=== PATIENT | female | born 1940 | race Caucasian/White ===

== ENCOUNTER 2016-11-09 09:49 | Inpatient (IN) | payer MEDICARE, MEDICAID ==
[~2016-11-09] VITALS: Ht 157.5 cm; Wt 74.6 kg
[~2016-11-09 09:49] MED LIST: BENZ1TAB PO; E 101000 PO; FOSA70TA PO; GEMF600 PO; LISI-585 PO; LORA-392 PO; MELO15 PO; OSCA200T PO; OXYB5TAB33 PO; RISP3TAB23 PO; SERT100 PO
[2016-11-09 09:56] VITALS: BP 147/67; PULSE 98; RESP 26; TEMP 100.9; O2SAT 93
[2016-11-09] MEDS ORDERED: CEFEPIME INJ 2,000 MG in SODIUM CHLORIDE 0.9% INJ 100 ML IV STA (10:19)
[2016-11-09] MEDS ORDERED: SODIUM CHLOR 0.9% 1000 ML INJ 1,000 ML IV ONE ×2 (10:19)
[2016-11-09] MEDS ORDERED: SODIUM CHLOR 0.9% 1000 ML INJ 400 ML IV ONE (10:19)
[2016-11-09] MEDS ORDERED: ACETAMINOPHEN 325 MG TAB PO ONE (10:30)
[2016-11-09 10:40] LABS: AUTOMATED NEUTROPHIL # 16.7 TH/MM3 (1.8-7.7); BASOPHIL # 0.1 TH/MM3 (0-0.2); BASOPHIL % 0.4 % (0.0-2.0); EOSINOPHIL # 0.1 TH/MM3 (0-0.4); EOSINOPHIL % 0.3 % (0.0-4.0); HEMATOCRIT 36.5 % (35.0-46.0); HEMO FLAGS DIFF FINAL; LYMPH % 5.8 % (9.0-44.0); LYMPHOCYTE # 1.1 TH/MM3 (1.0-4.8); MEAN CELL VOLUME 86.1 FL (80.0-100.0); MEAN CORPUSCULAR HEMOGLOBIN 27.9 PG (27.0-34.0); MEAN CORPUSCULAR HGB CONC 32.4 % (32.0-36.0); MONO % 7.1 % (0.0-8.0); NEUT % 86.4 % (16.0-70.0); PLATELET COUNT 306 TH/MM3 (150-450); RED BLOOD COUNT 4.24 MIL/MM3 (4.00-5.30); RED CELL DISTRIBUTION WIDTH 12.4 % (11.6-17.2); WHITE BLOOD COUNT 19.3 TH/MM3 (4.0-11.0)
[2016-11-09 10:52] LABS: BLOOD, URINE NEG (NEG); COMMENT (UR) CATH-CULT NOT IND; CULTURE IF INDICATED CATH CULTURE NOT IND; GLUCOSE,URINE NEG (NEG); HYALINE CAST, URINE 1 /lpf (RARE); KETONE, URINE NEG (NEG); NITRITE,URINE NEG (NEG); PH, URINE 5.5 (5.0-8.5); URINE COLOR YELLOW (YELLW/STRAW)
[2016-11-09 11:15] LABS: BICARBONATE 18.8 MEQ/L (21.0-32.0); CALCIUM-PROTEIN CORRECTED 7.5 MG/DL (8.5-10.1); POTASSIUM 3.5 MEQ/L (3.5-5.1); TOTAL BILIRUBIN ADULT 0.3 MG/DL (0.2-1.0)
[2016-11-09] MEDS ORDERED: LISI10TA PO (11:57)
[2016-11-09] MEDS ORDERED: RISP0.5T2 PO (11:57)
[2016-11-09] MEDS ORDERED: POLY17S PO (11:57)
[2016-11-09] MEDS ORDERED: TRAM50TA PO (11:57)
[2016-11-09] MEDS ORDERED: ZOLO100T PO (11:57)
[2016-11-09] MEDS ORDERED: RISP2TAB2 PO (11:57)
[2016-11-09] MEDS ORDERED: GEMF600T PO (11:57)
--- NOTE | 2016-11-09 11:59 | EKG ---
Date Performed: 11/09/2016 Time Performed: 10:06:39 PTAGE: 75 years EKG: Sinus rhythm BORDERLINE LEFT AXIS DEVIATION LOW QRS VOLTAGE IN PRECORDIAL LEADS INCOMPLETE RIGHT BUNDLE BRANCH BL OCK VOLTAGE CRITERIA FOR LVH, CONSIDER NORMAL VARIANT T-WAVE ABNORMALITY, CONSIDER LATERAL ISCHEMIA A BNORMAL ECG NO PREVIOUS TRACING DOCTOR: Edmond Rodgers Interpretating Date/Time 11/09/2016 11:59:23
--- NOTE | 2016-11-09 12:06 | RADRPT ---
EXAM DATE/TIME: 11/09/2016 10:21 [place] COMPARISON: No previous studies available for comparison. INDICATIONS : Fever. MEDICAL HISTORY : Unobtainable. SURGICAL HISTORY : Unobtainable. ENCOUNTER: Initial ACUITY: 1 day PAIN SCORE: Non-responsive. LOCATION: Bilateral chest FINDINGS: There is elevation of the right diaphragm of undetermined chronicity. Minimal streaky right perihilar and basilar parenchymal opacity is noted. Left lung is focally clear. No significant effusion is porsche pected. Cardiac contours are satisfactory for technique and projection. CONCLUSION: Elevated right diaphragm and mild streaky parenchymal opacity on the right of undetermined chronicity . Jose Love MD on November 09, 2016 at 12:00 Board Certified Radiologist. This report was verified electronically.
--- NOTE | 2016-11-09 12:07 | PD ---
HPI Chief Complaint: Altered Mental Status Time Seen by Provider: 10:15 Travel History International Travel<30 days: No Contact w/Intl Traveler<30days: No Traveled to known affect area: No History of Present Illness HPI The patient is 75 years old and arrives by EMS from [facility] due to a change in mentation. She was found to be febrile by EMS and brought here. Here the history is limited due to the clinical condition and the patient's inability to answer questions. Evidently the patient is verbal normally. Per staff rn at [facility], pt normally uses wheelchair and is verbal, aox2 and occasionally aox3, feeds self. PFSH Past Medical History Blood Disorders: No Depression: Yes Cancer: Yes Cardiovascular Problems: No Genitourinary: No Musculoskeletal: Yes (SYNCOPAL) Neurologic: No Psychiatric: Yes Reproductive: No Respiratory: No Schizophrenia: Yes ?: Not Past Surgical History Cardiac Surgery: No Ear Surgery: No Endocrine Surgery: No Eye Surgery: No Genitourinary Surgery: Yes Gynecologic Surgery: Yes Hysterectomy: Yes Mastectomy: Yes (bilateral) Oral Surgery: No Thoracic Surgery: No Other Surgery: Yes Social History Alcohol Use: No Tobacco Use: No Substance Use: Yes Allergies-Medications (Allergen,Severity, Reaction): Coded Allergies: aspirin (Unverified Allergy, Severe, 10/16/16) PT HAS TINNITUS penicillin G (Unverified Allergy, Severe, 10/16/16) Reported Meds & Prescriptions Reported Meds & Active Scripts Active Reported Tramadol (Tramadol HCl) 50 Mg Tab 50 Mg PO TID Gemfibrozil 600 Mg Tab 600 Mg PO BIDAC Take 30 minutes prior to breakfast and dinner. Zoloft (Sertraline HCl) 100 Mg Tab 100 Mg PO DAILY Risperidone 2 Mg Tab 2 Mg PO HS Risperidone 0.5 Mg Tab 0.5 Mg PO HS Polyethylene Glycol 3350 Powder (Polyethylene Glycol) 17 Gram Pow 17 Gm PO DAILY Lisinopril-Hctz 10-12.5 Mg Tab 1 Tab PO DAILY Review of Systems Except as stated in HPI: all other systems reviewed are Neg Physical Exam Narrative GENERAL: 75-year-old female well-nourished well-developed mild distress SKIN: Warm and dry. HEAD: Atraumatic. Normocephalic. EYES: Pupils equal and round. No scleral icterus. No injection or drainage. ENT: No nasal bleeding or discharge. Mucous membranes pink and moist. NECK: Trachea midline. No JVD. CARDIOVASCULAR: Heart rate approximately 90. Regular. RESPIRATORY: Normal respiratory rate. Breath sounds present bilaterally. GASTROINTESTINAL: Soft. There is no focus of tenderness. MUSCULOSKELETAL: Extremities without clubbing, cyanosis, or edema. No obvious deformities. NEUROLOGICAL: The patient opens her eyes and looks at the interviewer. She does not answer questions. She does not following commands. PSYCHIATRIC: Unable to assess. Data Data Last Documented VS Vital Signs Date Time Temp Pulse Resp B/P (MAP) Pulse Ox O2 Delivery O2 Flow Rate FiO2 11/09/16 09:56 93 Nasal Cannula 2.00 11/09/16 09:56 100.9 98 26 147/67 (93) Vital signs reviewed Orders Orders Complete Blood Count With Diff (11/09/16 10:19) Comprehensive Metabolic Panel (11/09/16 10:19) Lactic Acid Sepsis Protocol (11/09/16 10:19) Urinalysis - C+S If Indicated (11/09/16 10:19) Blood Culture (11/09/16 10:19) Chest, Single Ap (11/09/16 10:19) Blood Glucose (11/09/16 10:19) Ecg Monitoring (11/09/16 10:19) Iv Access Insert/Monitor (11/09/16 10:19) Oximetry (11/09/16 10:19) Oxygen Administration (11/09/16 10:19) Acetaminophen (Tylenol) (11/09/16 10:30) Cefepime Inj (Maxipime Inj) (11/09/16 10:19) Sodium Chlor 0.9% 1000 Ml Inj (Ns 1000 M (11/09/16 10:19) Sodium Chlor 0.9% 1000 Ml Inj (Ns 1000 M (11/09/16 10:19) Sodium Chlor 0.9% 1000 Ml Inj (Ns 1000 M (11/09/16 10:19) Electrocardiogram (11/09/16 10:06) Acetaminophen Supp (Tylenol Supp) (11/09/16 12:15) Lactic Acid (11/09/16 12:19) Admit Order (Ed Use Only) (11/09/16 12:40) Vancomycin Inj (Vancomycin Inj) (11/09/16 12:45) Labs Laboratory Tests Test 11/09/16 10:24 11/09/16 12:16 White Blood Count 19.3 TH/MM3 Red Blood Count 4.24 MIL/MM3 Hemoglobin 11.8 GM/DL Hematocrit 36.5 % Mean Corpuscular Volume 86.1 FL Mean Corpuscular Hemoglobin 27.9 PG Mean Corpuscular Hemoglobin Concent 32.4 % Red Cell Distribution Width 12.4 % Platelet Count 306 TH/MM3 Mean Platelet Volume 10.7 FL Neutrophils (%) (Auto) 86.4 % Lymphocytes (%) (Auto) 5.8 % Monocytes (%) (Auto) 7.1 % Eosinophils (%) (Auto) 0.3 % Basophils (%) (Auto) 0.4 % Neutrophils # (Auto) 16.7 TH/MM3 Lymphocytes # (Auto) 1.1 TH/MM3 Monocytes # (Auto) 1.4 TH/MM3 Eosinophils # (Auto) 0.1 TH/MM3 Basophils # (Auto) 0.1 TH/MM3 CBC Comment DIFF FINAL Differential Comment Urine Color YELLOW Urine Turbidity CLEAR Urine pH 5.5 Urine Specific [place] 1.014 Urine Protein TRACE mg/dL Urine Glucose (UA) NEG mg/dL Urine Ketones NEG mg/dL Urine Occult Blood NEG Urine Nitrite NEG Urine Bilirubin NEG Urine Urobilinogen LESS THAN 2.0 MG/DL Urine Leukocyte Esterase NEG Urine RBC 1 /hpf Urine Hyaline Casts 1 /lpf Microscopic Urinalysis Comment CATH-CULT NOT IND Blood Urea Nitrogen 27 MG/DL Creatinine 1.35 MG/DL Random Glucose 113 MG/DL Total Protein 6.8 GM/DL Albumin 3.0 GM/DL Calcium Level 7.3 MG/DL Alkaline Phosphatase 50 U/L Aspartate Amino Transf (AST/SGOT) 16 U/L Alanine Aminotransferase (ALT/SGPT) 11 U/L Total Bilirubin 0.3 MG/DL Sodium Level 142 MEQ/L Potassium Level 3.5 MEQ/L Chloride Level 114 MEQ/L Carbon Dioxide Level 18.8 MEQ/L Anion Gap 9 MEQ/L Estimat Glomerular Filtration Rate 38 ML/MIN Lactic Acid Level 2.3 mmol/L 2.9 mmol/L Protein Corrected Calcium 7.5 MG/DL [facility] Medical Decision Making Medical Screen Exam Complete: Yes Emergency Medical Condition: Yes Medical Record Reviewed: Yes Differential Diagnosis Pneumonia, UTI, sepsis, severe sepsis, colitis, multiorgan dysfunction syndrome , polypharmacy, delirium Narrative Course CBC & BMP Diagram 11/09/16 10:24 Total Protein 6.8, Albumin 3.0 L, Calcium Level 7.3 *L, Alkaline Phosphatase 50 , Aspartate Amino Transf (AST/SGOT) 16, Alanine Aminotransferase (ALT/SGPT) 11, Total Bilirubin 0.3 LA 2.3 UA normal EKG reveals sinus rhythm with a rate of 99 ST changes are noted The patient has a pneumonia with leukocytosis and fever. These findings are consistent with sepsis. Blood cultures obtained. Cefepime/Vanco. d/w Dr Agarwal. Critical Care Narrative Aggregate critical care time was 40 minutes. Time to perform other separately billable procedures was not included in the critical care time. My time did not include minutes spent treating any other patients simultaneously or on activities that did not directly contribute to the patient's treatment. The services I provided to this patient were to treat and/or prevent clinically significant deterioration that could result in: septic shock, multiple organ dysfunction, , permanent disability I provided critical care services requiring my management, as noted below: Chart data review, documentation time, medication orders and management, vital sign assessments/reviewing monitor data, ordering and reviewing lab tests, ordering and interpreting/reviewing x-rays and diagnostic studies, care of the patient and discussion of the patient with the admitting physicians. Sepsis Criteria SIRS Criteria (2 or more): Temp > 100.9 or < 96.8, Heart rate over 90, WBC > 41203, < 4000 or > 10% bands Sepsis Criteria (SIRS+source): Infect source susp/known Severe Sepsis (+one): Lactate >2 Diagnosis Primary Impression: Severe sepsis Additional Impression: Pneumonia Qualified Codes: J18.1 - Lobar pneumonia, unspecified organism Admitting Information Admitting Physician Requests: Admit Олег Hawkins MD Nov 09, 2016 12:06
[2016-11-09] MEDS ORDERED: ACETAMINOPHEN 650 MG SUPP RECTAL ONE (12:15)
[2016-11-09 12:34] LABS: LACTIC ACID GHOST NOT REPORTABLE
[2016-11-09] MEDS ORDERED: VANCOMYCIN INJ 1,000 MG in SODIUM CHLOR 0.9% 250 ML INJ 250 ML IV ONE (12:45)
[2016-11-09] MEDS ORDERED: ONDANSETRON HCL 4 MG/2 ML VIAL IVP PRN (13:15)
[2016-11-09] MEDS ORDERED: ACETAMINOPHEN 325 MG TAB PO PRN (13:15)
[2016-11-09] MEDS ORDERED: Vancomycin Consult Pharmacy 1 EA OTHER SCH (13:15)
[2016-11-09] MEDS ORDERED: SODIUM CHLORIDE 0.9% FLUSH 10 ML FLUSH IV FLUSH PRN (13:15)
[2016-11-09] MEDS ORDERED: NALOXONE HCL 0.4 MG/ML AMP IV PRN (13:15)
[2016-11-09 13:26] VITALS: BP 149/72; PULSE 92; RESP 22; TEMP 100.3; O2SAT 97
[2016-11-09] MEDS: metroNIDAZOLE 500 MG INJ 100 ML IV SCH ×2 (14:20→21:06)
[2016-11-09] MEDS: HEPARIN SODIUM - SQ 10,000 UNITS/ML VIAL SQ SCH (14:33)
[2016-11-09 14:50] VITALS: BP 142/63; PULSE 90; RESP 20; TEMP 98.2; O2SAT 98
--- NOTE | 2016-11-09 17:40 | HHI.HP ---
HPI Service [facility] Hospitalists Primary Care Physician Jasper Haile M.D. Admission Diagnosis Sepsis due to RLL PNA Diagnoses: Chief Complaint: AMS Travel History International Travel<30 Days: No Contact w/Intl Traveler <30 Da: No Traveled to Known Affected Are: No History of Present Illness This a 75-year-old female from a local [facility], significant past medical history dementia, schizophrenia, CK D stage III, anxiety, GERD, osteoarthritis. Presented fever EMS for change in mental status. She was found febrile, no documentation how high fever was. Patient unable to write information. In the emergency room, patient was evaluated. Laboratory workup was completed. CBC significant for leukocytosis, WBC 19.3. Urinalysis did not reveal any infection. BMP unremarkable other than chronic kidney disease which appears at baseline. Lactic acid was elevated 2.9. Chest x-ray with findings of elevated right diaphragm, mild streaky parenchymal opacity in the right of undetermined chronicity. Rectal temperature was 100.9, heart rate 88, respiratory rate 26, blood pressure 147/67, sats 92% on room air. Blood cultures were obtained, patient was given fluid resuscitation. Empiric antibiotics have been started. Patient awakes to voice, she no she is in the hospital but other than that she's not able to provide any details. She has a cough that is nonproductive. She is very weak, follows commands inconsistently. Medical records reviewed from facility, no advanced directives are available. Patient is admitted for further evaluation and treatment. Review of Systems ROS Limitations: Altered Mental Status Past Family Social History Past Medical History Chronic kidney disease stage III Dementia Depression Schizophrenia Anxiety GERD Osteoarthritis Compression fracture Past Surgical History Right lumpectomy Hysterectomy Reported Medications Reported Meds & Active Scripts Active Reported Tramadol (Tramadol HCl) 50 Mg Tab 50 Mg PO TID Gemfibrozil 600 Mg Tab 600 Mg PO BIDAC Take 30 minutes prior to breakfast and dinner. Zoloft (Sertraline HCl) 100 Mg Tab 100 Mg PO DAILY Risperidone 2 Mg Tab 2 Mg PO HS Risperidone 0.5 Mg Tab 0.5 Mg PO HS Polyethylene Glycol 3350 Powder (Polyethylene Glycol) 17 Gram Pow 17 Gm PO DAILY Lisinopril-Hctz 10-12.5 Mg Tab 1 Tab PO DAILY Allergies: Coded Allergies: aspirin (Unverified Allergy, Severe, 10/16/16) PT HAS TINNITUS penicillin G (Unverified Allergy, Severe, 10/16/16) Active Ordered Medications Inpatient Medications Acetaminophen (Tylenol Supp) 650 mg NOW ONCE RECTAL Last administered on 12:21; Start 11/09/16 at 12:15; Stop 11/09/16 at 12:16; Status DC Acetaminophen (Tylenol) 650 mg Q4H PRN PO TEMP > 100.4; Start 11/09/16 at 13:15 Cefepime HCl 1000 mg/Sodium Chloride 100 ml @ 200 mls/hr Q8H IV ; Start at 19:00 Cefepime HCl 2000 mg/Sodium Chloride 100 ml @ 200 mls/hr ONCE STAT IV Last administered on 11/09/16 11:12; Start 11/09/16 at 10:19; Stop 11/09/16 at 10:48; Status DC Heparin Sodium (Porcine) (Heparin Inj) 5,000 units Q12H SQ Last administered on 11/09/16 14:33; Start 11/09/16 at 14:00 Metronidazole 100 ml @ 100 mls/hr Q6H IV Last administered on 11/09/16 14:20; Start 11/09/16 at 14:00 Miscellaneous Information SPECIFIC LAB TO BE ... ONCE ONCE .XX ; Start 11/12 at 14:45; Stop 11/12/16 at 14:46 Naloxone HCl (Narcan Inj) 0.4 mg UNSCH PRN IV SEE LABEL COMMENTS; Start at 13:15 Ondansetron HCl (Zofran Inj) 4 mg Q6H PRN IVP NAUSEA OR VOMITING; Start at 13:15 Pharmacy Profile Note 0 ml @ 0 mls/hr UNSCH OTHER ; Start 11/09/16 at 13:15 Sodium Chloride (NS Flush) 2 ml BID IV FLUSH ; Start 11/09/16 at 21:00 Vancomycin HCl 1000 mg/Sodium Chloride 250 ml @ 250 mls/hr ONCE ONCE IV Last administered on 11/09/16 14:33; Start 11/09/16 at 12:45; Stop 11/09/16 at 13:44; Status DC Vancomycin HCl 1500 mg/Sodium Chloride 515 ml @ 257.5 mls/ hr Q24H ONCE IV ; Start 11/10/16 at 15:00; Stop 11/10/16 at 16:59 Family History Unable to obtain Social History Patient [facility] at a [facility], no documented tobacco abuse, no alcohol abuse , no illegal drug use. Physical Exam Vital Signs Vital Signs Date Time Temp Pulse Resp B/P (MAP) Pulse Ox O2 Delivery O2 Flow Rate FiO2 11/09/16 13:26 100.3 92 22 149/72 (97) 97 Nasal Cannula 2.00 11/09/16 09:56 93 Nasal Cannula 2.00 11/09/16 09:56 92 Room Air 11/09/16 09:56 100.9 98 26 147/67 (93) 93 Nasal Cannula 2.00 Physical Exam GENERAL: This is a well-nourished, well-developed patient, in no apparent distress. SKIN: No rashes, ecchymoses or lesions. Cool and dry. HEAD: Atraumatic. Normocephalic. No temporal or scalp tenderness. EYES: Pupils equal round and reactive. Extraocular motions intact. No scleral icterus. No injection or drainage. ENT: Nose without bleeding, purulent drainage or septal hematoma. Throat without erythema, tonsillar hypertrophy or exudate. Uvula midline. Airway patent. NECK: Trachea midline. No JVD or lymphadenopathy. Supple, nontender, no meningeal signs. CARDIOVASCULAR: Regular rate and rhythm with soft murmurs, no gallops, no rubs. RESPIRATORY: Poor inspiratory effort, diminished at bases. Has a cough, nonproductive. GASTROINTESTINAL: Abdomen soft, non-tender, nondistended. No hepato-splenomegaly , or palpable masses. No guarding. MUSCULOSKELETAL: Extremities without clubbing, cyanosis, or edema. No joint tenderness, effusion, or edema noted. No calf tenderness. Negative Homans sign bilaterally. NEUROLOGICAL: Awakes to voice, oriented to place. Weak to upper extremities and lower extremities. Doesn't follow commands consistently. Doesn't appear to have any focal deficits. Laboratory Laboratory Tests Test 11/09/16 10:24 11/09/16 12:16 White Blood Count 19.3 Red Blood Count 4.24 Hemoglobin 11.8 Hematocrit 36.5 Mean Corpuscular Volume 86.1 Mean Corpuscular Hemoglobin 27.9 Mean Corpuscular Hemoglobin Concent 32.4 Red Cell Distribution Width 12.4 Platelet Count 306 Mean Platelet Volume 10.7 Neutrophils (%) (Auto) 86.4 Lymphocytes (%) (Auto) 5.8 Monocytes (%) (Auto) 7.1 Eosinophils (%) (Auto) 0.3 Basophils (%) (Auto) 0.4 Neutrophils # (Auto) 16.7 Lymphocytes # (Auto) 1.1 Monocytes # (Auto) 1.4 Eosinophils # (Auto) 0.1 Basophils # (Auto) 0.1 CBC Comment DIFF FINAL Differential Comment Urine Color YELLOW Urine Turbidity CLEAR Urine pH 5.5 Urine Specific [place] 1.014 Urine Protein TRACE Urine Glucose (UA) NEG Urine Ketones NEG Urine Occult Blood NEG Urine Nitrite NEG Urine Bilirubin NEG Urine Urobilinogen LESS THAN 2.0 Urine Leukocyte Esterase NEG Urine RBC 1 Urine Hyaline Casts 1 Microscopic Urinalysis Comment CATH-CULT NOT IND Blood Urea Nitrogen 27 Creatinine 1.35 Random Glucose 113 Total Protein 6.8 Albumin 3.0 Calcium Level 7.3 Alkaline Phosphatase 50 Aspartate Amino Transf (AST/SGOT) 16 Alanine Aminotransferase (ALT/SGPT) 11 Total Bilirubin 0.3 Sodium Level 142 Potassium Level 3.5 Chloride Level 114 Carbon Dioxide Level 18.8 Anion Gap 9 Estimat Glomerular Filtration Rate 38 Lactic Acid Level 2.3 2.9 Protein Corrected Calcium 7.5 Date/Time Source Procedure Growth Status 11/09/16 10:24 Blood Peripheral Aerobic Blood Culture Pending Received 11/09/16 10:24 Blood Peripheral Anaerobic Blood Culture Pending Received Result Diagram: 11/09/16 1024 11/09/16 1024 Imaging Last Impressions Chest X-Ray 11/09/16 1019 Signed Impressions: Service Date/Time: Wednesday, November 09, 2016 10:21 - CONCLUSION: Elevated right diaphragm and mild streaky parenchymal opacity on the right of undetermined chronicity. Jose Love MD Septic Shock Reassessment Heart: Regular rate and rhythm Skin: Warm, Dry Peripheral Pulses: Bounding Right Radial Bounding Left Radial Bounding Right Popliteal Bounding Left Popliteal Bounding Right Dorsalis Pedis Bounding Left Dorsalis Pedis Bounding Right Posterior Tibial Bounding Left Posterior Tibial Caprini VTE Risk Assessment Caprini VTE Risk Assessment: Mod/High Risk (score >= 2) Caprini Risk Assessment Model Point Value = 1 Point Value = 2 Point Value = 3 Point Value = 5 Age 41-60 Minor surgery BMI > 25 kg/m2 Swollen legs Varicose veins or History of unexplained or recurrent spontaneous Oral contraceptives or hormone replacement Sepsis (< 1 month) Serious lung disease, including pneumonia (< 1 month) Abnormal pulmonary function Acute myocardial infarction Congestive heart failure (< 1 month) History of inflammatory bowel disease Medical patient at bed rest Age 61-74 Arthroscopic surgery Major open surgery (> 45 min) Laparoscopic surgery (> 45 min) Malignancy Confined to bed (> 72 hours) Immobilizing plaster cast Central venous access Age >= 75 History of VTE Family history of VTE Factor V Leiden Prothrombin [id number] Lupus anticoagulant Anticardiolipin antibodies Elevated serum homocysteine Heparin-induced thrombocytopenia Other congenital or acquired thrombophilia Stroke (< 1 month) Elective arthroplasty Hip, pelvis, or leg fracture Acute spinal cord injury (< 1 month) Prophylaxis Regimen Total Risk Factor Score Risk Level Prophylaxis Regimen 0-1 Low Early ambulation 2 Moderate Order ONE of the following: *Sequential Compression Device (SCD) *Heparin 5000 units SQ BID 3-4 Higher Order ONE of the following medications: *Heparin 5000 units SQ TID *Enoxaparin/Lovenox 40 mg SQ daily (WT < 150 kg, CrCl > 30 mL/min) *Enoxaparin/Lovenox 30 mg SQ daily (WT < 150 kg, CrCl > 10-29 mL/min) *Enoxaparin/Lovenox 30 mg SQ BID (WT < 150 kg, CrCl > 30 mL/min) AND/OR *Sequential Compression Device (SCD) 5 or more Highest Order ONE of the following medications: *Heparin 5000 units SQ TID (Preferred with Epidurals) *Enoxaparin/Lovenox 40 mg SQ daily (WT < 150 kg, CrCl > 30 mL/min) *Enoxaparin/Lovenox 30 mg SQ daily (WT < 150 kg, CrCl > 10-29 mL/min) *Enoxaparin/Lovenox 30 mg SQ BID (WT < 150 kg, CrCl > 30 mL/min) AND *Sequential Compression Device (SCD) Assessment and Plan Problem List: (1) Sepsis ICD Codes: A41.9 - Sepsis, unspecified organism Status: Acute (2) Pneumonia ICD Codes: J18.9 - Pneumonia, unspecified organism Status: Acute (3) Dementia ICD Codes: F03.90 - Unspecified dementia without behavioral disturbance Status: Chronic (4) Altered mental status ICD Codes: R41.82 - Altered mental status, unspecified Status: Acute (5) Depression ICD Codes: F32.9 - Major depressive disorder, single episode, unspecified Status: Chronic (6) GERD (gastroesophageal reflux disease) ICD Codes: K21.9 - Gastro-esophageal reflux disease without esophagitis Status: Chronic (7) CKD (chronic kidney disease) stage 3, GFR 30-59 ml/min ICD Codes: N18.3 - Chronic kidney disease, stage 3 (moderate) Status: Chronic Assessment and Plan Admit to Dr. Agarwal 75-year-old female from a local [facility], presented with altered mental status and fever. Found with sepsis, with findings of lactic acidosis, fever, tachycardia, tachypnea and chest x-ray findings of probable pneumonia. Sepsis Pneumonia, possibly healthcare acquired -Continue with empiric antibiotics and follow cultures -Obtain swallow evaluation -Monitor CBC -Repeat lactic acid -Continue with IV fluids, change to D5 and half-normal saline at 84 as patient will be nothing by mouth. Dementia History of schizophrenia History of depression and anxiety -Continue Zoloft, risperidone Hypertension -Continue lisinopril hydrochlorothiazide Chronic kidney disease stage III -Continue IV fluids next -monitor renal function Home medications reviewed, initiated as indicated Heparin 5000 units subcutaneous twice a day for DVT prophylaxis Physical therapy and speech therapy for evaluation No advanced directives available, patient to remain full code This patient was seen by myself and Dr. Agarwal, this H&P is written his behalf Physician Certification 2 Midnight Certification Type: Admission for Inpatient Services Order for Inpatient Services The services are ordered in accordance with Medicare regulations or non- Medicare payer requirements, as applicable. In the case of services not specified as inpatient-only, they are appropriately provided as inpatient services in accordance with the 2-midnight benchmark. Estimated LOS (days): 2 2 days is the estimated time the patient will need to remain in the hospital, assuming treatment plan goals are met and no additional complications. Post-Hospital Plan: SNF Problem Qualifiers (1) Sepsis: Qualified Codes: A41.9 - Sepsis, unspecified organism (2) Pneumonia: Qualified Codes: J18.1 - Lobar pneumonia, unspecified organism (3) Dementia: Qualified Codes: F03.90 - Unspecified dementia without behavioral disturbance (4) Altered mental status: Qualified Codes: R40.4 - Transient alteration of awareness (5) Depression: Qualified Codes: F32.9 - Major depressive disorder, single episode, unspecified (6) GERD (gastroesophageal reflux disease): Qualified Codes: K21.9 - Gastro-esophageal reflux disease without esophagitis Angelika Duran [facility] Nov 09, 2016 17:40
[2016-11-09] MEDS: DEXT 5%-NACL 0.45% 1000 ML INJ 1,000 ML IV SCH (17:45)
[2016-11-09] MEDS: risperiDONE 0.5 MG TAB PO SCH (19:52)
[2016-11-09] MEDS: SODIUM CHLORIDE 0.9% FLUSH 10 ML FLUSH IV FLUSH SCH (19:52)
[2016-11-09] MEDS: CEFEPIME INJ 1,000 MG in SODIUM CHLORIDE 0.9% INJ 100 ML IV SCH (19:52)
[2016-11-09 20:00] VITALS: BP 142/84; PULSE 84; PULSE 87; RESP 20; TEMP 97.7; O2SAT 97
[2016-11-10] VITALS (7 sets, daily range): BP systolic 136–162; BP diastolic 67–79; PULSE 81–96; RESP 18–26; TEMP 98.1–99.9; O2SAT 95–98
[2016-11-10] MEDS: metroNIDAZOLE 500 MG INJ 100 ML IV SCH ×4 (02:17→22:07)
[2016-11-10] MEDS: HEPARIN SODIUM - SQ 10,000 UNITS/ML VIAL SQ SCH ×2 (02:17→13:01)
[2016-11-10] MEDS: CEFEPIME INJ 1,000 MG in SODIUM CHLORIDE 0.9% INJ 100 ML IV SCH ×3 (04:03→18:01)
[2016-11-10] MEDS: DEXT 5%-NACL 0.45% 1000 ML INJ 1,000 ML IV SCH ×2 (05:40→16:42)
[2016-11-10 06:55] LABS: AUTOMATED NEUTROPHIL # 8.3 TH/MM3 (1.8-7.7); BASOPHIL % 0.3 % (0.0-2.0); EOSINOPHIL % 0.3 % (0.0-4.0); HEMATOCRIT 30.5 % (35.0-46.0); HEMO FLAGS DIFF FINAL; LYMPH % 10.7 % (9.0-44.0); LYMPHOCYTE # 1.1 TH/MM3 (1.0-4.8); MEAN CELL VOLUME 84.9 FL (80.0-100.0); MEAN CORPUSCULAR HEMOGLOBIN 28.1 PG (27.0-34.0); MEAN CORPUSCULAR HGB CONC 33.1 % (32.0-36.0); MONO % 6.4 % (0.0-8.0); NEUT % 82.3 % (16.0-70.0); PLATELET COUNT 271 TH/MM3 (150-450); RED BLOOD COUNT 3.59 MIL/MM3 (4.00-5.30); RED CELL DISTRIBUTION WIDTH 12.2 % (11.6-17.2); WHITE BLOOD COUNT 10.1 TH/MM3 (4.0-11.0)
[2016-11-10] MEDS: GEMFIBROZIL 600 MG TAB PO SCH ×2 (07:00→16:41)
[2016-11-10 07:33] LABS: BICARBONATE 18.7 MEQ/L (21.0-32.0); POTASSIUM 3.1 MEQ/L (3.5-5.1)
[2016-11-10 08:03] LABS: CALCIUM-PROTEIN CORRECTED 7.6 MG/DL (8.5-10.1)
--- NOTE | 2016-11-10 09:25 | HHI.PR ---
Subjective Subjective Remarks Resting in bed Chief complaint chronic back pain AFebrile Oral cavity very dry, asking for fluids Color pale (Susana Owens) Review of Systems Constitutional Constitutional: Fatigue, Weakness (Susana Owens) Throat Throat Remarks Dry throat and oral cavity (Susana Owens) Pulmonary Respiratory: Shortness of Breath (low volumes) (Susana Owens) Musculoskeletal MS: Weakness, Stiffness (secondary to age) (Susana Owens) Psychiatric Psychiatric: Normal Mood (affect) (Susana Owens) Vitals/Results Vital Signs Vital Signs Date Time Temp Pulse Resp B/P (MAP) Pulse Ox O2 Delivery O2 Flow Rate FiO2 11/10/16 04:00 98.4 96 20 136/74 (94) 98 11/10/16 00:00 Nasal Cannula 2.00 11/10/16 00:00 98.1 93 20 162/72 (102) 97 11/09/16 20:00 84 11/09/16 20:00 Nasal Cannula 2.00 11/09/16 20:00 97.7 87 20 142/84 (103) 97 11/09/16 14:50 98.2 90 20 142/63 (89) 98 11/09/16 13:26 100.3 92 22 149/72 (97) 97 Nasal Cannula 2.00 11/09/16 09:56 93 Nasal Cannula 2.00 11/09/16 09:56 92 Room Air 11/09/16 09:56 100.9 98 26 147/67 (93) 93 Nasal Cannula 2.00 (Susana Owens) CBC/BMP: 11/10/16 0552 11/10/16 0552 Lab Results Laboratory Tests Test 11/09/16 10:24 11/09/16 12:16 11/10/16 05:52 White Blood Count 19.3 TH/MM3 10.1 TH/MM3 Red Blood Count 4.24 MIL/MM3 3.59 MIL/MM3 Hemoglobin 11.8 GM/DL 10.1 GM/DL Hematocrit 36.5 % 30.5 % Mean Corpuscular Volume 86.1 FL 84.9 FL Mean Corpuscular Hemoglobin 27.9 PG 28.1 PG Mean Corpuscular Hemoglobin Concent 32.4 % 33.1 % Red Cell Distribution Width 12.4 % 12.2 % Platelet Count 306 TH/MM3 271 TH/MM3 Mean Platelet Volume 10.7 FL 9.6 FL Neutrophils (%) (Auto) 86.4 % 82.3 % Lymphocytes (%) (Auto) 5.8 % 10.7 % Monocytes (%) (Auto) 7.1 % 6.4 % Eosinophils (%) (Auto) 0.3 % 0.3 % Basophils (%) (Auto) 0.4 % 0.3 % Neutrophils # (Auto) 16.7 TH/MM3 8.3 TH/MM3 Lymphocytes # (Auto) 1.1 TH/MM3 1.1 TH/MM3 Monocytes # (Auto) 1.4 TH/MM3 0.6 TH/MM3 Eosinophils # (Auto) 0.1 TH/MM3 0.0 TH/MM3 Basophils # (Auto) 0.1 TH/MM3 0.0 TH/MM3 CBC Comment DIFF FINAL DIFF FINAL Differential Comment Urine Color YELLOW Urine Turbidity CLEAR Urine pH 5.5 Urine Specific [place] 1.014 Urine Protein TRACE mg/dL Urine Glucose (UA) NEG mg/dL Urine Ketones NEG mg/dL Urine Occult Blood NEG Urine Nitrite NEG Urine Bilirubin NEG Urine Urobilinogen LESS THAN 2.0 MG/DL Urine Leukocyte Esterase NEG Urine RBC 1 /hpf Urine Hyaline Casts 1 /lpf Microscopic Urinalysis Comment CATH-CULT NOT IND Blood Urea Nitrogen 27 MG/DL 16 MG/DL Creatinine 1.35 MG/DL 0.98 MG/DL Random Glucose 113 MG/DL 136 MG/DL Total Protein 6.8 GM/DL 6.7 GM/DL Albumin 3.0 GM/DL Calcium Level 7.3 MG/DL 7.4 MG/DL Alkaline Phosphatase 50 U/L Aspartate Amino Transf (AST/SGOT) 16 U/L Alanine Aminotransferase (ALT/SGPT) 11 U/L Total Bilirubin 0.3 MG/DL Sodium Level 142 MEQ/L 146 MEQ/L Potassium Level 3.5 MEQ/L 3.1 MEQ/L Chloride Level 114 MEQ/L 116 MEQ/L Carbon Dioxide Level 18.8 MEQ/L 18.7 MEQ/L Anion Gap 9 MEQ/L 11 MEQ/L Estimat Glomerular Filtration Rate 38 ML/MIN 55 ML/MIN Lactic Acid Level 2.3 mmol/L 2.9 mmol/L Protein Corrected Calcium 7.5 MG/DL 7.6 MG/DL Microbiology Microbiology 11/09/16 Aerobic Blood Culture, Received Pending 11/09/16 Anaerobic Blood Culture, Received Pending 11/09/16 Aerobic Blood Culture, Received Pending 11/09/16 Anaerobic Blood Culture, Received Pending Imaging Remarks Last Impressions Chest X-Ray 11/09/16 1019 Signed Impressions: Service Date/Time: Wednesday, November 09, 2016 10:21 - CONCLUSION: Elevated right diaphragm and mild streaky parenchymal opacity on the right of undetermined chronicity. Jose Love MD Current Medications Administered Medications Medications (Trade) Dose Ordered Sig/Nadia Route PRN Reason Start Time Stop Time Status Last Admin Dose Admin Heparin Sodium (Porcine) (Heparin Inj) 5,000 units Q12H SQ 11/09/16 14:00 11/10/16 02:17 Metronidazole 100 ml @ 100 mls/hr Q6H IV 11/09/16 14:00 11/10/16 02:17 Cefepime HCl 1000 mg/Sodium Chloride 100 ml @ 200 mls/hr Q8H IV 11/09/16 19:00 11/10/16 04:03 Dextrose/Sodium Chloride 1,000 ml @ 84 mls/hr [id number] IV 11/09/16 17:45 11/09/16 17:45 Risperidone (risperDAL) 0.5 mg HS PO 11/09/16 21:00 11/09/16 19:52 (Susana Owens) Physical Exam General General Appearance: Pale, Obese (Susana Owens) Eyes Eye Exam: Pupils Reactive (Susana Owens) Ears & Nose Ears & Nose Exam: Nasal Mucosa [place] (Susana Owens) Throat Throat Exam: Oral Mucosa [place] & Moist (jerzy and dry) (Susana Owens) Neck Neck Exam: Neck Supple (Susana Owens) Pulmonary Resp Exam: Decreased Bases, Diminished Breath Sounds, Poor Inspiratory Effort ( low to medium volumes) (Susana Owens) Cardiology CV Exam: Regular (Susana Owens) Gastrointestinal/Abdomen GI Exam: Non-Tender, Bowel Sounds Present (off) (Susana Owens) Musculoskeletal MS Exam: Joints Intact, Atrophy (Susana Owens) Integumentary Skin Exam: Warm, Dry, Intact (Susana Owens) Extremeties Extremities Exam: No Edema (Susana Owens) Neurologic Neuro Exam: Awake, Speech Clear (or stand up) (Susana Owens) Assessment/Plan Assessment/Plan Vital signs reviewed, no fever noted today, BP normal trends Labs reviewed leukocytosis now resolved, WBC count 10.1, anemia, probable secondary to chronic disease no acute blood loss note Hypokalemia, since patient's swallow has not been evaluated yet will use IV potassium, 20 mEq 2 doses, check labs in the morning If patient's swallow and use with cough, a need to consider PEG tube in the near future GI consult. Will need to also evaluate whether there is family present. Possible palliative care involvement Sepsis , resolved with normal WBC count today Pneumonia, possibly healthcare acquired, possibly aspiration related IV antibiotics continue vancomycin and cefepime Cultures are no growth so far Swallow eval is pending, discussed with nurse to do her own swallow trials and use thickened liquids, if ST not available today Continue hydration with IV fluids Dementia, schizophrenia, depression, and anxiety at times Current patient's affect is calm Adequate management with Zoloft, risperidone Hypertension, stable with medical management Chronic kidney disease stage III Monitor labs and dehydration Per and subcutaneous for DVT prophylaxis Physical therapy and speech therapy for evaluation pending No advanced directives available, patient to remain full code Discussed with nurse Discussed with Dr. Agarwal, seen on his behalf (Susana Owens) Assessment/Plan Patient seen and examined as above Discussed with RN Labs reviewed Medications reviewed Speech therapy evaluation appreciated Discussed with RN Plan of care discussed with [facility] For pure diet with nectar thick liquids as discussed with RN (Rogelio Agarwal MD) Susana Owens Nov 10, 2016 09:24 Rogelio Agarwal MD Nov 10, 2016 14:53
[2016-11-10] MEDS: HYDROCHLOROTHIAZIDE 12.5 MG CAP PO SCH (10:26)
[2016-11-10] MEDS: SODIUM CHLORIDE 0.9% FLUSH 10 ML FLUSH IV FLUSH SCH ×2 (10:26→21:00)
[2016-11-10] MEDS: SERTRALINE HCL 100 MG TAB PO SCH (10:27)
[2016-11-10] MEDS: LISINOPRIL 10 MG TAB PO SCH (10:27)
[2016-11-10] MEDS: POTASSIUM CHLOR 20 MEQ PREMIX 100 ML IV SCH ×2 (12:00→12:56)
[2016-11-10] MEDS ORDERED: VANCOMYCIN 1,500 MG/NS 500 ML IV ONE ×2 (15:00)
[2016-11-10] MEDS: VANCOMYCIN INJ 1,250 MG in SODIUM CHLOR 0.9% 250 ML INJ 250 ML IV SCH (16:41)
[2016-11-10] MEDS: risperiDONE 0.5 MG TAB PO SCH (22:09)
[2016-11-11] VITALS (7 sets, daily range): BP systolic 129–172; BP diastolic 58–80; PULSE 76–87; RESP 18–22; TEMP 98.1–99.4; O2SAT 96–99
[2016-11-11] MEDS: metroNIDAZOLE 500 MG INJ 100 ML IV SCH ×4 (02:54→21:53)
[2016-11-11] MEDS: CEFEPIME INJ 1,000 MG in SODIUM CHLORIDE 0.9% INJ 100 ML IV SCH ×3 (02:55→21:52)
[2016-11-11] MEDS: HEPARIN SODIUM - SQ 10,000 UNITS/ML VIAL SQ SCH ×2 (02:56→18:02)
[2016-11-11] MEDS: GEMFIBROZIL 600 MG TAB PO SCH ×2 (06:24→18:00)
[2016-11-11] MEDS: DEXT 5%-NACL 0.45% 1000 ML INJ 1,000 ML IV SCH ×2 (06:24→18:11)
[2016-11-11 09:22] LABS: HEMATOCRIT 30.5 % (35.0-46.0); MEAN CELL VOLUME 85.1 FL (80.0-100.0); MEAN CORPUSCULAR HEMOGLOBIN 28.1 PG (27.0-34.0); PLATELET COUNT 264 TH/MM3 (150-450); RED BLOOD COUNT 3.58 MIL/MM3 (4.00-5.30); REVIEW FLAG FINAL; WHITE BLOOD COUNT 9.5 TH/MM3 (4.0-11.0)
[2016-11-11] MEDS: SERTRALINE HCL 100 MG TAB PO SCH (09:56)
[2016-11-11] MEDS: HYDROCHLOROTHIAZIDE 12.5 MG CAP PO SCH (09:56)
[2016-11-11] MEDS: SODIUM CHLORIDE 0.9% FLUSH 10 ML FLUSH IV FLUSH SCH ×2 (09:57→21:54)
[2016-11-11] MEDS: LISINOPRIL 10 MG TAB PO SCH (09:57)
--- NOTE | 2016-11-11 09:58 | HHI.PR ---
Subjective Subjective Remarks Resting in bed Lying flat, encouraged to elevate head of bed and try to eat breakfast. Not initiating to eat her diet when he comes Mouth very dry Afebrile (Susana Owens) Review of Systems Constitutional Constitutional: Fatigue, Weakness (Susana Owens) Throat Throat Remarks Dry throat and oral cavity (Susana Owens) Pulmonary Respiratory: Shortness of Breath (no shortness of breath at rest noted this morning) (Susana Owens) Musculoskeletal MS: Weakness, Stiffness (secondary to age) (Susana Owens) Psychiatric Psychiatric: Normal Mood (affect) (Susana Owens) Vitals/Results Vital Signs Vital Signs Date Time Temp Pulse Resp B/P (MAP) Pulse Ox O2 Delivery O2 Flow Rate FiO2 11/11/16 08:00 99.0 79 18 129/58 (81) 97 11/11/16 04:00 98.4 76 18 129/60 (83) 97 11/11/16 00:00 99.4 80 18 134/63 (86) 96 11/10/16 22:00 Nasal Cannula 2.00 11/10/16 20:00 81 11/10/16 20:00 99.2 82 18 150/67 (94) 98 11/10/16 20:00 Nasal Cannula 2.00 11/10/16 16:00 99.2 83 26 146/70 (95) 96 11/10/16 14:00 95 Nasal Cannula 3.00 11/10/16 12:00 99.9 82 24 155/79 (104) 97 11/10/16 11:08 Nasal Cannula 2.00 (Susana Owens) CBC/BMP: 11/11/16 0850 11/10/16 0552 Lab Results Laboratory Tests Test 11/11/16 08:50 White Blood Count 9.5 TH/MM3 Red Blood Count 3.58 MIL/MM3 Hemoglobin 10.0 GM/DL Hematocrit 30.5 % Mean Corpuscular Volume 85.1 FL Mean Corpuscular Hemoglobin 28.1 PG Mean Corpuscular Hemoglobin Concent 33.0 % Red Cell Distribution Width 12.0 % Platelet Count 264 TH/MM3 Mean Platelet Volume 9.9 FL Imaging Remarks Last Impressions Chest X-Ray 11/09/16 1019 Signed Impressions: Service Date/Time: Wednesday, November 09, 2016 10:21 - CONCLUSION: Elevated right diaphragm and mild streaky parenchymal opacity on the right of undetermined chronicity. Jose Love MD Current Medications Administered Medications Medications (Trade) Dose Ordered Sig/Nadia Route PRN Reason Start Time Stop Time Status Last Admin Dose Admin Sodium Chloride (NS Flush) 2 ml BID IV FLUSH 11/09/16 21:00 11/10/16 10:26 Heparin Sodium (Porcine) (Heparin Inj) 5,000 units Q12H SQ 11/09/16 14:00 11/11/16 02:56 Metronidazole 100 ml @ 100 mls/hr Q6H IV 11/09/16 14:00 11/11/16 02:54 Cefepime HCl 1000 mg/Sodium Chloride 100 ml @ 200 mls/hr Q8H IV 11/09/16 19:00 11/11/16 02:55 Dextrose/Sodium Chloride 1,000 ml @ 84 mls/hr [id number] IV 11/09/16 17:45 11/11/16 06:24 Gemfibrozil (Lopid) 600 mg BIDAC PO 11/10/16 07:00 11/11/16 06:24 Risperidone (risperDAL) 0.5 mg HS PO 11/09/16 21:00 11/10/16 22:09 Sertraline HCl (Zoloft) 100 mg DAILY PO 11/10/16 09:00 11/10/16 10:27 Lisinopril (Prinivil) 10 mg DAILY PO 11/10/16 09:00 11/10/16 10:27 Hydrochlorothiazide (Microzide) 12.5 mg DAILY PO 11/10/16 09:00 11/10/16 10:26 Vancomycin HCl 1250 mg/Sodium Chloride 262.5 ml @ 250 mls/hr Q24H IV 11/10/16 15:00 11/10/16 16:41 (Susana Owens) Physical Exam General General Appearance: Pale, Obese (Susana Owens) Eyes Eye Exam: Pupils Reactive (Susana Owens) Ears & Nose Ears & Nose Exam: Nasal Mucosa [place] (Susana OwensP) Throat Throat Exam: Oral Mucosa [place] & Moist (very dry and cracked lips) (Susnaa Owens [employer]) Neck Neck Exam: Neck Supple (Susana OwensP) Pulmonary Resp Exam: Decreased Bases, Diminished Breath Sounds, Poor Inspiratory Effort ( low to medium volumes) (Susana OwensP) Cardiology CV Exam: Regular (Susana OwensP) Gastrointestinal/Abdomen GI Exam: Non-Tender, Bowel Sounds Present (off) (Susana OwensP) Musculoskeletal MS Exam: Joints Intact, Atrophy (Susana OwensP) Integumentary Skin Exam: Warm, Dry (Susana OwensP) Extremeties Extremities Exam: No Edema (Susana OwensP) Neurologic Neuro Exam: Awake, Speech Clear (or stand up) Neuro Remarks Doesn't appear to be initiating the response to eat or drink (Susana Owens) Assessment/Plan Assessment/Plan Vital signs reviewed, no fever noted today, BP normal trends Labs reviewed leukocytosis now resolved,, anemia, probable secondary to chronic disease no acute blood loss note Hypokalemia, currently labs are pending Sepsis , resolved with normal WBC count today Pneumonia, possibly healthcare acquired, possibly aspiration related IV antibiotics continue vancomycin and cefepime Cultures are no growth so far Swallow eval done, patient took small sips of liquids, but then it one point he' ll liquid in her mouth would not swallow. Was finally coaxed to spit it out, no cough noted with purred diet. Patient does not appear to be initiating to eat or drink . Staff to monitor her calorie intake as well as assist with food. Consult ordered for calorie count Continue hydration with IV fluids for now, 84 cc an hour Dementia, schizophrenia, depression, and anxiety at times, currently affect appears calm doesn't appear to be initiate taking by mouth fluids or eating [place] diet Orders for staff to assist with her feeding and note any problems with swallow Hypertension, stable with medical management Chronic kidney disease stage III Monitor labs and dehydration DVT prophylaxis Physical therapy and speech therapy continue No advanced directives available, patient to remain full code DC planning when pt. is medically stable, (Susana Owens) Assessment/Plan Patient seen and examined as above Labs reviewed Medications reviewed Discussed with RN Plan of care discussed with [employer] Discussed with patient (Rogelio Agarwal MD) Susana Owens Nov 11, 2016 09:58 Rogelio Agarwal MD Nov 11, 2016 14:52
[2016-11-11 10:01] LABS: BICARBONATE 17.3 MEQ/L (21.0-32.0); POTASSIUM 3.3 MEQ/L (3.5-5.1)
[2016-11-11] MEDS ORDERED: POTASSIUM CHLORIDE 20 MEQ CONTROLLED RELEASE TAB PO ONE (11:30)
[2016-11-11] MEDS: VANCOMYCIN INJ 1,250 MG in SODIUM CHLOR 0.9% 250 ML INJ 250 ML IV SCH (15:00)
[2016-11-11] MEDS: risperiDONE 0.5 MG TAB PO SCH (21:51)
[2016-11-12] VITALS (8 sets, daily range): BP systolic 129–162; BP diastolic 61–85; PULSE 78–83; RESP 16–20; TEMP 98.1–99.7; O2SAT 95–98
[2016-11-12] MEDS: metroNIDAZOLE 500 MG INJ 100 ML IV SCH ×4 (01:36→21:37)
[2016-11-12] MEDS: HEPARIN SODIUM - SQ 10,000 UNITS/ML VIAL SQ SCH ×2 (01:37→15:16)
[2016-11-12] MEDS: CEFEPIME INJ 1,000 MG in SODIUM CHLORIDE 0.9% INJ 100 ML IV SCH ×3 (03:00→21:37)
[2016-11-12] MEDS: DEXT 5%-NACL 0.45% 1000 ML INJ 1,000 ML IV SCH (05:20)
[2016-11-12] MEDS: GEMFIBROZIL 600 MG TAB PO SCH ×2 (06:01→17:27)
--- NOTE | 2016-11-12 07:45 | HHI.PR ---
Subjective Subjective Remarks Eyes open, Responds with simple verbal stimuli to simple questions Decreased appetite as well as initiative to eat or drink by mouth fluids Staff is assisting her and encouraging her to eat, otherwise she doesn't. States she gets full easily Nutritional consult and calorie count pending (Susana Owens) Review of Systems Constitutional Constitutional: Fatigue, Weakness (Susana Owens) Throat Throat Remarks Dry throat and oral cavity (Susana Owens) Pulmonary Respiratory: Shortness of Breath (no shortness of breath at rest noted this morning) (Susana Owens) GI/Abdomen GI/Abdomen Remarks Decreased appetite, eats and drinks only if someone offers it to her (Susana Owens) Musculoskeletal MS: Weakness, Stiffness (secondary to age) (Susana Owens) Psychiatric Psychiatric: Normal Mood (affect) (Susana Owens) Vitals/Results Vital Signs Vital Signs Date Time Temp Pulse Resp B/P (MAP) Pulse Ox O2 Delivery O2 Flow Rate FiO2 11/12/16 04:00 98.1 83 20 157/70 (99) 97 11/12/16 00:00 98.1 80 20 153/79 (103) 96 11/11/16 22:01 Nasal Cannula 2.00 11/11/16 20:42 98 Nasal Cannula 3.00 11/11/16 20:00 79 11/11/16 20:00 98.1 80 20 155/69 (97) 97 11/11/16 20:00 Nasal Cannula 2.00 11/11/16 16:00 98.1 87 18 172/77 (108) 98 11/11/16 14:09 Nasal Cannula 2.00 11/11/16 12:00 99.0 77 22 131/80 (97) 99 11/11/16 08:00 99.0 79 18 129/58 (81) 97 (Susana Owens) CBC/BMP: 11/11/16 0850 11/11/16 0850 Lab Results Laboratory Tests Test 11/11/16 08:50 White Blood Count 9.5 TH/MM3 Red Blood Count 3.58 MIL/MM3 Hemoglobin 10.0 GM/DL Hematocrit 30.5 % Mean Corpuscular Volume 85.1 FL Mean Corpuscular Hemoglobin 28.1 PG Mean Corpuscular Hemoglobin Concent 33.0 % Red Cell Distribution Width 12.0 % Platelet Count 264 TH/MM3 Mean Platelet Volume 9.9 FL Blood Urea Nitrogen 9 MG/DL Creatinine 0.93 MG/DL Random Glucose 133 MG/DL Calcium Level 8.1 MG/DL Sodium Level 140 MEQ/L Potassium Level 3.3 MEQ/L Chloride Level 113 MEQ/L Carbon Dioxide Level 17.3 MEQ/L Anion Gap 10 MEQ/L Estimat Glomerular Filtration Rate 58 ML/MIN Imaging Remarks Last Impressions Chest X-Ray 11/09/16 1019 Signed Impressions: Service Date/Time: Wednesday, November 09, 2016 10:21 - CONCLUSION: Elevated right diaphragm and mild streaky parenchymal opacity on the right of undetermined chronicity. Jose Love MD Current Medications Administered Medications Medications (Trade) Dose Ordered Sig/Nadia Route PRN Reason Start Time Stop Time Status Last Admin Dose Admin Sodium Chloride (NS Flush) 2 ml BID IV FLUSH 11/09/16 21:00 11/11/16 21:54 Heparin Sodium (Porcine) (Heparin Inj) 5,000 units Q12H SQ 11/09/16 14:00 11/12/16 01:37 Metronidazole 100 ml @ 100 mls/hr Q6H IV 11/09/16 14:00 11/12/16 01:36 Cefepime HCl 1000 mg/Sodium Chloride 100 ml @ 200 mls/hr Q8H IV 11/09/16 19:00 11/12/16 03:00 Dextrose/Sodium Chloride 1,000 ml @ 84 mls/hr [id number] IV 11/09/16 17:45 11/11/16 18:11 Gemfibrozil (Lopid) 600 mg BIDAC PO 11/10/16 07:00 11/12/16 06:01 Risperidone (risperDAL) 0.5 mg HS PO 11/09/16 21:00 11/11/16 21:51 Sertraline HCl (Zoloft) 100 mg DAILY PO 11/10/16 09:00 11/11/16 09:56 Lisinopril (Prinivil) 10 mg DAILY PO 11/10/16 09:00 11/11/16 09:57 Hydrochlorothiazide (Microzide) 12.5 mg DAILY PO 11/10/16 09:00 11/11/16 09:56 Vancomycin HCl 1250 mg/Sodium Chloride 262.5 ml @ 250 mls/hr Q24H IV 11/10/16 15:00 11/10/16 16:41 (Susana Owens) Physical Exam General General Appearance: Pale, Obese (Susana Owens) Eyes Eye Exam: Pupils Equal, Pupils Reactive (Susana Owens) Ears & Nose Ears & Nose Exam: Nasal Mucosa [place] (Susana Owens) Throat Throat Exam: Oral Mucosa [place] & Moist (very dry and cracked lips) (Susana Owens) Neck Neck Exam: Neck Supple (Susana Owens) Pulmonary Resp Exam: Decreased Bases, Diminished Breath Sounds, Poor Inspiratory Effort ( low to medium volumes) (Susana Owens) Cardiology CV Exam: Regular (Susana Owens) Gastrointestinal/Abdomen GI Exam: Non-Tender, Bowel Sounds Present (off) GI Remarks Doesn't initiate eating or drinking, full feed per staff Decreased appetite (Susana Owens) Musculoskeletal MS Exam: Joints Intact, Atrophy (Susana Owens) Integumentary Skin Exam: Warm, Dry (Susana Owens) Extremeties Extremities Exam: No Edema (Susana Owens) Neurologic Neuro Exam: Awake, Speech Clear (or stand up) Neuro Remarks Doesn't appear to be initiating the response to eat or drink (Susana Owens) Assessment/Plan Assessment/Plan Vital signs reviewed, no fever noted today, BP normal trends Labs reviewed , hypokalemia potassium 3.4, Potassium 20meg X 1 given, recheck in am Hypokalemia, recieved K+ 20meq x 1, BMP pending this am Sepsis , resolved with normal WBC count today Pneumonia, possibly healthcare acquired, possibly aspiration related IV antibiotics continue vancomycin and cefepime Cultures are no growth so far Swallow eval done, patient took small sips of liquids, but then it one point he' ll liquid in her mouth would not swallow. Was finally coaxed to spit it out, no cough noted with purred diet. Patient does not appear to be initiating to eat or drink . Staff to monitor her calorie intake as well as assist with food. Consult ordered for calorie count , pending Continue hydration with IV fluids for now, 84 cc an hour, for patient's hydration Dementia, schizophrenia, depression, and anxiety at times, currently affect appears calm doesn't appear to be initiate taking by mouth fluids or eating [place] diet Orders for staff to assist with her feeding and note any problems with swallow, most of the time patient will eat if food is given to her, but will complain at times that she feels full after 1-2 bites Hypertension, stable with medical management Chronic kidney disease stage III Monitor labs and dehydration DVT prophylaxis Physical therapy and speech therapy continue Palliative care consult done. Concern with dementia, probable end-stage as well as her psych history, and current ability to eat and maintain her nutritional health. Family? No advanced directives available, patient to remain full code DC planning when pt. is medically stable, (Susana Owens) Assessment/Plan pt seen and examined as abvoe face to face time spent with pt labs reviewed meds reviewed dw pt plan of care dw supervisor title cont current management labs for am calcium carbonate replacement (Rogelio Agarwal MD) Susana Owens Nov 12, 2016 07:45 Rogelio Agarwal MD Nov 12, 2016 12:13
[2016-11-12 08:31] LABS: POTASSIUM 3.4 MEQ/L (3.5-5.1)
[2016-11-12] MEDS ORDERED: POTASSIUM CHLORIDE 20 MEQ CONTROLLED RELEASE TAB PO ONE (10:15)
[2016-11-12] MEDS: LISINOPRIL 10 MG TAB PO SCH (10:39)
[2016-11-12] MEDS: SERTRALINE HCL 100 MG TAB PO SCH (10:40)
[2016-11-12] MEDS: HYDROCHLOROTHIAZIDE 12.5 MG CAP PO SCH (10:40)
[2016-11-12] MEDS: SODIUM CHLORIDE 0.9% FLUSH 10 ML FLUSH IV FLUSH SCH ×2 (10:42→21:00)
[2016-11-12] MEDS ORDERED: PHARMACY ORDERED LAB ONE (14:45)
[2016-11-12] MEDS: VANCOMYCIN INJ 1,250 MG in SODIUM CHLOR 0.9% 250 ML INJ 250 ML IV SCH ×3 (15:14→15:36)
[2016-11-12] MEDS: traMADol HCL 50 MG TAB PO SCH ×2 (15:15→17:28)
[2016-11-12] MEDS: risperiDONE 0.5 MG TAB PO SCH (21:00)
[2016-11-12] MEDS: risperiDONE 1 MG TAB PO SCH (21:36)
[2016-11-13] VITALS (7 sets, daily range): BP systolic 109–157; BP diastolic 62–73; PULSE 59–84; RESP 16–20; TEMP 97.6–99.1; O2SAT 96–99
[2016-11-13] MEDS: metroNIDAZOLE 500 MG INJ 100 ML IV SCH ×4 (02:00→22:12)
[2016-11-13] MEDS: HEPARIN SODIUM - SQ 10,000 UNITS/ML VIAL SQ SCH ×2 (03:26→13:10)
[2016-11-13] MEDS: CEFEPIME INJ 1,000 MG in SODIUM CHLORIDE 0.9% INJ 100 ML IV SCH ×3 (03:26→18:06)
[2016-11-13] MEDS: DEXT 5%-NACL 0.45% 1000 ML INJ 1,000 ML IV SCH ×2 (05:10→18:06)
[2016-11-13] MEDS: GEMFIBROZIL 600 MG TAB PO SCH ×2 (05:45→18:06)
[2016-11-13] MEDS: SERTRALINE HCL 100 MG TAB PO SCH (08:36)
[2016-11-13] MEDS: HYDROCHLOROTHIAZIDE 12.5 MG CAP PO SCH (08:36)
[2016-11-13] MEDS: LISINOPRIL 10 MG TAB PO SCH (08:36)
[2016-11-13] MEDS: SODIUM CHLORIDE 0.9% FLUSH 10 ML FLUSH IV FLUSH SCH ×2 (08:38→22:12)
[2016-11-13] MEDS: traMADol HCL 50 MG TAB PO SCH ×3 (08:38→18:06)
[2016-11-13] MEDS: POLYETHYLENE GLYCOL 17 GM PKG PO SCH (08:40)
--- NOTE | 2016-11-13 10:52 | HHI.PR ---
Subjective Subjective Remarks Eyes open,with voice Voice very soft and appears weakened Patient received no food this a.m., pureed diet with thin liquids, ordered 2, automatically come every meal Encourage patient to take by mouth fluids, but doesn't think about doing eating or drinking task on her own Palliative care consult pending (Susana Owens) Review of Systems Constitutional Constitutional: Fatigue, Weakness Constitutional Remarks Limited review of systems due to patient's generalized mental status, dementia, schizophrenia (Susana Owens) Throat Throat Remarks Dry throat and oral cavity (Susana Owens) Vitals/Results Vital Signs Vital Signs Date Time Temp Pulse Resp B/P (MAP) Pulse Ox O2 Delivery O2 Flow Rate FiO2 11/13/16 09:52 66 11/13/16 08:47 Nasal Cannula 2.00 11/13/16 08:00 98.7 83 20 136/64 (88) 97 11/13/16 04:00 99.1 77 20 130/62 (84) 99 11/13/16 00:00 98.3 70 20 137/62 (87) 99 11/12/16 20:16 79 11/12/16 20:00 Nasal Cannula 2.00 11/12/16 20:00 98.6 78 16 129/64 (85) 98 11/12/16 16:00 99.7 78 18 131/61 (84) 98 11/12/16 13:18 98 Nasal Cannula 2.00 11/12/16 12:00 98.8 79 18 162/76 (104) 95 (Susana Owens) CBC/BMP: 11/11/16 0850 11/12/16 0740 Current Medications Administered Medications Medications (Trade) Dose Ordered Sig/Nadia Route PRN Reason Start Time Stop Time Status Last Admin Dose Admin Sodium Chloride (NS Flush) 2 ml BID IV FLUSH 11/09/16 21:00 11/13/16 08:38 Heparin Sodium (Porcine) (Heparin Inj) 5,000 units Q12H SQ 11/09/16 14:00 11/13/16 03:26 Metronidazole 100 ml @ 100 mls/hr Q6H IV 11/09/16 14:00 11/13/16 08:36 Cefepime HCl 1000 mg/Sodium Chloride 100 ml @ 200 mls/hr Q8H IV 11/09/16 19:00 11/13/16 03:26 Dextrose/Sodium Chloride 1,000 ml @ 84 mls/hr [id number] IV 11/09/16 17:45 11/13/16 05:10 Gemfibrozil (Lopid) 600 mg BIDAC PO 11/10/16 07:00 11/13/16 05:45 Risperidone (risperDAL) 0.5 mg HS PO 11/09/16 21:00 11/11/16 21:51 Sertraline HCl (Zoloft) 100 mg DAILY PO 11/10/16 09:00 11/13/16 08:36 Lisinopril (Prinivil) 10 mg DAILY PO 11/10/16 09:00 11/13/16 08:36 Hydrochlorothiazide (Microzide) 12.5 mg DAILY PO 11/10/16 09:00 11/13/16 08:36 Vancomycin HCl 1250 mg/Sodium Chloride 262.5 ml @ 250 mls/hr Q24H IV 11/10/16 15:00 11/12/16 15:36 Tramadol HCl (Ultram) 50 mg TID PO 11/12/16 13:00 11/13/16 08:38 Risperidone (risperDAL) 2 mg HS PO 11/12/16 21:00 11/12/16 21:36 (Susana Owens) Physical Exam General General Appearance: Comfortable (doesn't move around a lot in the bed), Pale, Obese (Susana Owens) Eyes Eye Exam: Pupils Equal, Pupils Reactive (Susana Owens) Ears & Nose Ears & Nose Exam: Nasal Mucosa [place] (Susana Owens) Throat Throat Exam: Oral Mucosa [place] & Moist (very dry and cracked lips) (Susana Owens) Neck Neck Exam: Neck Supple (Susana Owens) Pulmonary Resp Exam: Decreased Bases, Diminished Breath Sounds, Poor Inspiratory Effort ( low to medium volumes) (Susana Owens) Cardiology CV Exam: Regular (Susana Owens) Gastrointestinal/Abdomen GI Exam: Non-Tender, Bowel Sounds Present (off) GI Remarks Doesn't initiate eating or drinking, full feed per staff Decreased appetite (Susana Owens) Musculoskeletal MS Exam: Joints Intact, Atrophy (Susana Owens) Integumentary Skin Exam: Warm, Dry (Susana Owens) Extremeties Extremities Exam: No Edema (Susana Owens) Neurologic Neuro Exam: Awake, Speech Clear (or stand up) Neuro Remarks Doesn't appear to be initiating the response to eat or drink (Susana Owens) Assessment/Plan Assessment/Plan Vital signs reviewed, afebrile, normal trends Labs reviewed , checking hypokalemia BMP pending Sepsis , resolved with normal WBC count today Pneumonia, possibly healthcare acquired, possibly aspiration related IV antibiotics continue vancomycin and cefepime, responded well to antibiotic therapy, cultures negative Swallow eval done, patient took small sips of liquids, but then it one point he' ll liquid in her mouth would not swallow. Patient does not appear to be initiating to eat or drink . Need calorie count, nutrition consult pending Continue hydration with IV fluids for now, 84 cc an hour, for patient's hydration, patient is total feed per staff Dementia, schizophrenia, depression, medical management Hypertension, stable with medical management Chronic kidney disease stage III Monitor labs and dehydration DVT prophylaxis Physical therapy and speech therapy continue dietary consult and calorie ct. pending?? Palliative care consult pending Concern with dementia, probable end-stage as well as her psych history, and current ability to eat and maintain her nutritional health. Family? No advanced directives available, patient to remain full code DC planning when pt. is medically stable, Spoke with CONTRACT IMPLEMENTATION ANALYST, nurse Discussed with Dr. Agarwal, seen on his behalf (Susana Owens) Assessment/Plan pt seen and examined as above labs reviewed meds reviewed plan fo care dw bronc buster as above explained to pt dw palliative care plan for psych consult (Rogelio Agarwal MD) Susana Owens Nov 13, 2016 10:52 Rogelio Agarwal MD Nov 13, 2016 16:23
--- NOTE | 2016-11-13 15:00 | PD.CONS ---
Consult Service Palliative Care Consult Requested By Dr. Agarwal. Primary Care Physician Jasper Haile M.D. Reason for Consultation a. To assist with evaluation and management of symptoms including: Debility and pain. b. To assist medical decision maker(s) with: better understanding of current medical conditions; weighing benefits/burdens of medical treatment options; making medical treatment decisions. . (Celia Mendez) HPI History of Present Illness Mrs. Sood its a 75-year-old female with a medical history significant for schizophrenia, breast cancer status post bilateral mastectomy, hypertension, major depressive disorder, anxiety, RA, chronic anemia, hepatitis B, GERD and arthritis. Patient is a resident of a long-term facility, she presented to ED on 11/09/16 via EMS for evaluation of altered mental status and fever. Chest x- ray revealing elevated right diaphragm and mild streaky parenchymal opacity on the right. Laboratory workup revealing leukocytosis, WBC 19.3, Hgb 11.8, platelet count 306. Lactic acid of 2.3. BUN/creatinine 27/1.35. UA negative for nitrates or leukocytes. Patient was admitted for further management of pneumonia, sepsis. Patient on pured diet and thin liquids, speech therapy following. Reports of decreased oral intake requiring encouragement to eat. Ongoing calorie count at this time. Concerns regarding patient's overall debility and ability to meet her caloric needs via oral intake. Palliative care has been consulted for further clarifications of goals of care/discussion regarding PEG tube. Patient remains afebrile, stable hemodynamically. O2 via nasal cannula at 2 L, oxygen saturation in the high 90s. Most recent laboratory workup 11/11/16 revealing WBC 9.5, Hgb 10.0, platelet count 264. BUN/creatinine 7/0.85. Blood culture 11/09/16 with no growth in 4 days. Reviewed patient's past medical history. Last ED visit to this facility in October 2014. Multiple ED visits since 2005 secondary to syncopal/presyncopal episodes. Patient was seen by psychiatry on 01/16/2007. Diagnosed with psychoaffective disorder by history with possible dementia. No evidence of psychosis or monroe at that time. Patient resident of [facility] for the past 12 years. Resident of [facility] since November 2014. Patient seen in her room, she was resting in bed in no acute distress. Alert and oriented x self, place and situation. She reports that she came to the hospital after she "passed out" at her long-term facility. Patient appears to have a fair understanding of her current medical issues, was able to provide past medical history and psychosocial history. She reports that her only family is her brother Davi Sood but has not seen him in 12 years years. Patient reports of another sibling by the name of Christopher who from an acute GA. Patient reports having a son who she gave away, both of her parents are now . Medical update provided. Discussed with patient reason for her hospitalization, clinical course and current medical management. Shared concerns over decreased oral intake and overall debility. Discussed that calorie count is ongoing. Discussed PEG tube, patient verbalized NOT wishing a PEG tube. Telephone call to [facility]. Spoke with clinical social worker Rachael. She reports that patient's brother has never visited patient since she has been residing at their facility. Rachael also reports that they have offered assistance to patient from [place] [facility] for her to appoint a guardian. Rachael reports that patient has declined their assistance in the past. Palliative care was provided with 2 additional phone numbers for brother. Telephone call to patient's brother to 3 numbers provided , and . No answer, unable to leave message. Function/Cognitive Trajectory Patient resident of [facility] for the past 12 years. Currently residing at [facility] since November 2014. Patient wheelchair bound. Alert and oriented x self and situation at baseline, schizoaffective disorder. Requiring assistance with all ADLs except feedings. . (Celia Mendez) Review of Systems Constitutional: COMPLAINS OF: Fatigue, Dizziness, Change in appetite, Pain, Generalized weakness, DENIES: Fever Eyes: DENIES: Eye inflammation Ears, nose, mouth, throat: DENIES: Hearing loss, Oral lesions, Running Nose Respiratory: COMPLAINS OF: Shortness of breath, DENIES: Cough Cardiovascular: DENIES: Lower Extremity Edema Gastrointestinal: DENIES: Abdominal pain, Nausea, Vomiting Genitourinary: DENIES: Urinary incontinence Musculoskeletal: COMPLAINS OF: Back pain, Decreased range of motion Integumentary: DENIES: Rash Hematologic/Lymphatics: COMPLAINS OF: Bruising Immunologic/Allergic: DENIES: Eczema Neurologic: COMPLAINS OF: Abnormal gait, Poor Balance, DENIES: Localized weakness, Seizures, Tremor Psychiatric: COMPLAINS OF: Anxiety, Mood changes, Depression, DENIES: Agitation (Celia Mendez) Past Family Social History Coded Allergies: aspirin (Unverified Allergy, Severe, 10/16/16) PT HAS TINNITUS penicillin G (Unverified Allergy, Severe, 10/16/16) Past Medical History schizophrenia Hypertension Hyperlipidemia From her arthritis Major depressive disorder Anxiety disorder Anemia Hepatitis B History of breast cancer status post bilateral mastectomy Vitamin D deficiency Which compression fracture of second lumbar vertebrae GERD Osteoarthritis . Past Surgical History Bilateral mastectomy Hysterectomy Reported Medications Tramadol (Tramadol HCl) 50 Mg Tab 50 Mg PO TID Gemfibrozil 600 Mg Tab 600 Mg PO BIDAC Zoloft (Sertraline HCl) 100 Mg Tab 100 Mg PO DAILY Risperidone 2 Mg Tab 2 Mg PO HS Risperidone 0.5 Mg Tab 0.5 Mg PO HS Polyethylene Glycol 3350 Powder (Polyethylene Glycol) 17 Gram Pow 17 Gm PO DAILY Lisinopril-Hctz 10-12.5 Mg Tab 1 Tab PO DAILY . Current Medications Medications (Trade) Dose Ordered Sig/Nadia Route Start Time Stop Time Status Last Admin (NS Flush) 2 ml UNSCH PRN IV FLUSH 11/09/16 13:15 (NS Flush) 2 ml BID IV FLUSH 11/09/16 21:00 11/13/16 08:38 (Tylenol) 650 mg Q4H PRN PO 11/09/16 13:15 (Zofran Inj) 4 mg Q6H PRN IVP 11/09/16 13:15 (Heparin Inj) 5,000 units Q12H SQ 11/09/16 14:00 11/13/16 13:10 (Narcan Inj) 0.4 mg UNSCH PRN IV 11/09/16 13:15 Metronidazole 100 ml @ 100 mls/hr Q6H IV 11/09/16 14:00 11/13/16 13:10 Cefepime HCl 1000 mg/Sodium Chloride 100 ml @ 200 mls/hr Q8H IV 11/09/16 19:00 11/13/16 11:50 Pharmacy Profile Note 0 ml @ 0 mls/hr UNSCH OTHER 11/09/16 13:15 Dextrose/Sodium Chloride 1,000 ml @ 84 mls/hr [id number] IV 11/09/16 17:45 11/13/16 05:10 (Lopid) 600 mg BIDAC PO 11/10/16 07:00 11/13/16 05:45 (risperDAL) 0.5 mg HS PO 11/09/16 21:00 11/11/16 21:51 (Zoloft) 100 mg DAILY PO 11/10/16 09:00 11/13/16 08:36 (Prinivil) 10 mg DAILY PO 11/10/16 09:00 11/13/16 08:36 (Microzide) 12.5 mg DAILY PO 11/10/16 09:00 11/13/16 08:36 Vancomycin HCl 1250 mg/Sodium Chloride 262.5 ml @ 250 mls/hr Q24H IV 11/10/16 15:00 11/12/16 15:36 (Miralax) 17 gm DAILY PO 11/13/16 09:00 (Ultram) 50 mg TID PO 11/12/16 13:00 11/13/16 13:10 (risperDAL) 2 mg HS PO 11/12/16 21:00 11/12/16 21:36 Miscellaneous Information SPECIFIC LAB TO BE ... ONCE ONCE .XX 11/14/16 14:45 11/14/16 14:46 Family History Brother of acute GA at unknown age. Both parents are , unknown etiology. . Substance Use Tobacco: Former smoker. Quit over 20 years ago. Alcohol: Former social drinker. Quit over 20 years ago. Prescription med abuse: Denies. Illicits: Denies. . Psychosocial History Patient originally from [place]. Moved to [place] over 20 years ago. 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 Patient is single. She reports that she had a son but "was given away". Both parents are , one brother Felice at known age secondary to acute GA. One remaining brother by the name of Davi Sood who she has not seen in over 12 years. . Spiritual/Cultural Factors No rastafarian affiliation. . (Celia Mendez) Living Will: Never completed Health Care Surrogate: Never completed Durable Power of Heel Seat Fitter Machine: Never completed Health Care Surrogate(s): No advance directives completed. As per [place] statute, healthcare proxy decision-making falls to patient's only brother Davi Sood. . Today's verbally stated goals: Continue current medical management. . Ethical and Legal Issues Patient with history of psychoaffective disorder/questionable dementia. Participating in medical decision-making at this time. No advance directives completed. . (Celia Mendez) Physical Exam Vital Signs Date Time Temp Pulse Resp B/P (MAP) Pulse Ox O2 Delivery O2 Flow Rate FiO2 11/13/16 09:52 66 11/13/16 08:47 Nasal Cannula 2.00 11/13/16 08:00 98.7 83 20 136/64 (88) 97 11/13/16 04:00 99.1 77 20 130/62 (84) 99 11/13/16 00:00 98.3 70 20 137/62 (87) 99 11/12/16 20:16 79 11/12/16 20:00 Nasal Cannula 2.00 11/12/16 20:00 98.6 78 16 129/64 (85) 98 11/12/16 16:00 99.7 78 18 131/61 (84) 98 11/13/16 11/14/16 19:00 07:00 Intake Total 100 ml Balance 100 ml IV Total 100 ml Exam CONSTITUTIONAL/GENERAL: This is an adequately nourished patient in no apparent distress. TUBES/LINES/DRAINS: PIV's, nasal cannula. SKIN: Pale. No jaundice, rashes, or lesions. Ecchymoses on upper extremities. No wounds seen anteriorly. Skin temperature appropriate. Not diaphoretic. HEAD: Atraumatic. Normocephalic. EYES: Pupils equal and round and reactive. Extraocular motions intact. No scleral icterus. No injection or drainage. ENT: Hearing grossly normal. Nose without bleeding or purulent drainage. Dry lips. NECK: Trachea midline. Supple, nontender. CARDIOVASCULAR: Regular rate and rhythm without murmurs, gallops, or rubs. No JVD. Peripheral pulses symmetric. RESPIRATORY/CHEST: Symmetric, unlabored respirations. Clear to auscultation. Breath sounds equal bilaterally. No wheezes, rales, or rhonchi. GASTROINTESTINAL: Abdomen soft, non-tender, nondistended. No guarding. Bowel sounds present. GENITOURINARY: Without palpable bladder distension. MUSCULOSKELETAL: Extremities without cyanosis, or edema. No mottling or clubbing. NEUROLOGICAL: Awake and alert x self, place and situation. Motor and sensory grossly within normal limits. Follows commands. Moves all extremities. Able to communicate needs. PSYCHIATRIC: Calm. Pleasant. . (Celia Mendez) Diagnostic Tests Laboratory Laboratory Tests Test 11/11/16 08:50 11/12/16 07:40 White Blood Count 9.5 TH/MM3 (4.0-11.0) Red Blood Count 3.58 MIL/MM3 (4.00-5.30) Hemoglobin 10.0 GM/DL (11.6-15.3) Hematocrit 30.5 % (35.0-46.0) Mean Corpuscular Volume 85.1 FL (80.0-100.0) Mean Corpuscular Hemoglobin 28.1 PG (27.0-34.0) Mean Corpuscular Hemoglobin Concent 33.0 % (32.0-36.0) Red Cell Distribution Width 12.0 % (11.6-17.2) Platelet Count 264 TH/MM3 (150-450) Mean Platelet Volume 9.9 FL (7.0-11.0) Blood Urea Nitrogen 9 MG/DL (7-18) 7 MG/DL (7-18) Creatinine 0.93 MG/DL (0.50-1.00) 0.85 MG/DL (0.50-1.00) Random Glucose 133 MG/DL (74-106) 129 MG/DL (74-106) Calcium Level 8.1 MG/DL (8.5-10.1) 7.7 MG/DL (8.5-10.1) Sodium Level 140 MEQ/L (136-145) 145 MEQ/L (136-145) Potassium Level 3.3 MEQ/L (3.5-5.1) 3.4 MEQ/L (3.5-5.1) Chloride Level 113 MEQ/L (98-107) 118 MEQ/L (98-107) Carbon Dioxide Level 17.3 MEQ/L (21.0-32.0) 18.0 MEQ/L (21.0-32.0) Anion Gap 10 MEQ/L (5-15) 9 MEQ/L (5-15) Estimat Glomerular Filtration Rate 58 ML/MIN (>89) 65 ML/MIN (>89) (Celia Mendez) Result Diagram: 11/11/16 0850 11/12/16 0740 Microbiology Microbiology Date/Time Source Procedure Growth Status 11/09/16 10:24 Blood Peripheral Aerobic Blood Culture - Preliminary NO GROWTH IN 4 DAYS Resulted 11/09/16 10:24 Blood Peripheral Anaerobic Blood Culture - Preliminary NO GROWTH IN 4 DAYS Resulted Imaging Last Impressions Chest X-Ray 11/09/16 1019 Signed Impressions: Service Date/Time: Wednesday, November 09, 2016 10:21 - CONCLUSION: Elevated right diaphragm and mild streaky parenchymal opacity on the right of undetermined chronicity. Jose Love MD (Celia Mendez) Patient/Family Conference Present at Family Conference: Patient. Family Conference Time (mins): 26 Family Conference Location: Bedside Issues Discussed: * Palliative care role, purpose, approach * Additional medical, psychosocial, and spiritual history * Patients general health, functional status, and cognitive changes in the months leading up to the current hospitalization * Patient understanding of the current medical problems -pneumonia, sepsis. Decreased oral intake, debility. * Patients goals of care as best understood from advance directives and/or conversations and/or values * Current medical treatment options and benefits/burdens of those options -PEG tube * Questions answered to the best of my ability * Palliative care contact information provided * Advance directives . (Celia Mendez) Assessment and Plan Disease Oriented Problem List: (1) Sepsis (2) Pneumonia (3) Schizophrenia (4) Hypertension (5) Rheumatoid arthritis (6) Major depressive disorder Symptom Scale: (1) Pain 0-10 Scale: Unable to quantify Comment: Chronic (2) Anxiety 0-10 Scale: Unable to quantify Comment: Chronic (3) Debility 0-10 Scale: Unable to quantify Comment: Progressive. Pertinent Non-Medical Issues Psychosocial: Patient originally from [place]. Moved to [place] over 20 years ago. 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 Patient is single. She reports that she had a son but "was given away". Both parents are , one brother Felice at known age secondary to acute GA. One remaining brother by the name of Davi Sood who she has not seen in over 12 years. Spiritual: No rastafarian affiliation. Legal: No advance directives completed. Ethical issues impacting care: Patient with history of psychoaffective disorder/ questionable dementia. Participating in medical decision-making at this time. No advance directives completed. . Important Contacts Brother Davi Sood , & . . Prognosis Mrs. Sood its a 75-year-old female with a medical history significant for schizophrenia, breast cancer status post bilateral mastectomy, hypertension, major depressive disorder, anxiety, RA, chronic anemia, hepatitis B, GERD and arthritis. Patient is a resident of a long-term facility, she presented to ED on 11/09/16 via EMS for evaluation of altered mental status and fever. Patient was admitted for management of sepsis, pneumonia. Clinical course complicated by decreased oral intake, concerns of patient's ability to meet her caloric needs. Patient at high risk for further complications, continue decline and . . Code Status: Full Code Plan * CODE STATUS: Full code at this time by default. Confirmed with [facility] that patient has been a full code since November 2014. * HEALTHCARE DECISION-MAKING: Patient participating in medical decision-making. However, history of schizoaffective disorder with possible dementia, seen by psychiatry during January 2007 admission. Resident of [facility] for the past 12 years. Patient appears to have a fair understanding of her medical issues, unclear if she retains the capacity to weight the benefits versus burdens of treatment options. No advance directives completed. As per [place] statute, healthcare proxy decision-making falls to patient's only surviving brother Davi Sood -As per [facility], patient's brother has never been able to contact. * Task placed to case management for an accurint report on patient's brother. If unable to locate, palliative care recommends [employer]. * GOALS OF CARE: See above. Pending contact with patient's brother for further clarifications of goals of care. Palliative care recommends psychiatry consultation given patient's long history of schizoaffective disorder with possible dementia. * SYMPTOMS: = Pain, history of osteoarthritis, compression fracture to second lumbar vertebrae. Currently on home regimen of tramadol 50 mg 3 times a day. = Anxiety, chronic. Patient with diagnosis of schizoaffective disorder. Currently on Zoloft daily and risperidone at bedtime. = Debility, progressive. [facility], requiring assistance with all ADLs besides feeding. Wheelchair bound. * Case discussed with Dr. Agarwal. * Palliative care will continue to follow-up for further clarifications of goals of care as patient's clinical course continues to evolve. . (Celia Mendez) Time Spent Total Floor Time (mins): 66 (Total time to include review and summarization of available medical records to include prior ED visits and hospitalizations, physical exam, case discussion with Dr. Agarwal. Telephone conversation with [facility] clinical social worker Rachael.) >50% Counseling/Coord of Care: Yes (Celia Mendez) Thank you for the opportunity to participate in the care of Ms. Sood. (Celia Mendez) Attestation To help prompt me to consider important information that might be impacting today's encounter and assessment, information from prior notes written by myself or my colleagues may have been "brought forward" into today's note. My signature on this note, however, is an attestation that I personally performed the exam, history, and/or decision-making noted today, and, unless otherwise indicated, the interactions with patient, family, and staff as well as the review of records all occurred today. I also attest that the listed assessment and stated plan reflect my best clinical judgment today based on the combination of historical information, prior notes, and today's exam/ interactions. When time spent is documented, it refers only to time spent today by the signer, or if indicated, combined time spent today by collaborating physician/nurse practitioner. (Celia Mendez) Collaborating MD Comments Chart reviewed. Case discussed with palliative care COMMUNICATIONS SYSTEMS ENGINEER. Above note reviewed and I concur. . (Anival Dominique MD) Celia Mendez Nov 13, 2016 15:00 Anival Dominique MD Dec 09, 2016 11:41
[2016-11-13] MEDS: VANCOMYCIN INJ 1,250 MG in SODIUM CHLOR 0.9% 250 ML INJ 250 ML IV SCH (18:06)
[2016-11-13 18:52] LABS: BICARBONATE 20.9 MEQ/L (21.0-32.0); POTASSIUM 3.7 MEQ/L (3.5-5.1)
[2016-11-13] MEDS: risperiDONE 1 MG TAB PO SCH (21:00)
[2016-11-13] MEDS: risperiDONE 0.5 MG TAB PO SCH (22:12)
[2016-11-14] VITALS (7 sets, daily range): BP systolic 136–174; BP diastolic 63–88; PULSE 72–87; RESP 18–20; TEMP 97.3–98.3; O2SAT 97–99
[2016-11-14] MEDS: CEFEPIME INJ 1,000 MG in SODIUM CHLORIDE 0.9% INJ 100 ML IV SCH ×3 (03:05→17:10)
[2016-11-14] MEDS: HEPARIN SODIUM - SQ 10,000 UNITS/ML VIAL SQ SCH ×2 (03:05→13:51)
[2016-11-14] MEDS: metroNIDAZOLE 500 MG INJ 100 ML IV SCH ×4 (03:06→21:38)
[2016-11-14] MEDS: GEMFIBROZIL 600 MG TAB PO SCH ×2 (06:21→17:11)
[2016-11-14] MEDS: DEXT 5%-NACL 0.45% 1000 ML INJ 1,000 ML IV SCH ×2 (06:21→17:11)
--- NOTE | 2016-11-14 09:11 | HHI.PR ---
Subjective Subjective Remarks Patient has weight, but has no desire to eat Breakfast tray sitting beside her, encourage by mouth fluids and gave her a drink of nutritional supplement, swallowed without cough Patient states Hasn't seen her brother and a long time, Appreciate palliative care input (Susana Owens) Review of Systems Constitutional Constitutional: Fatigue, Weakness Constitutional Remarks Limited review of systems due to patient's generalized mental status, dementia, schizophrenia (Susana Owens) Throat Throat Remarks Dry throat and oral cavity (Susana Owens) Vitals/Results Vital Signs Vital Signs Date Time Temp Pulse Resp B/P (MAP) Pulse Ox O2 Delivery O2 Flow Rate FiO2 11/14/16 08:53 97.9 74 20 157/70 (99) 98 11/14/16 04:00 98.1 72 18 136/63 (87) 99 11/14/16 00:00 98.3 77 18 152/72 (98) 97 11/13/16 20:00 97 Nasal Cannula 2.00 11/13/16 20:00 97.6 84 16 157/73 (101) 97 11/13/16 16:00 98.0 71 18 142/70 (94) 96 11/13/16 12:00 98.1 59 18 109/72 (84) 96 11/13/16 09:52 66 (Susana Owens) CBC/BMP: 11/11/16 0850 11/13/16 1745 Lab Results Laboratory Tests Test 11/13/16 17:45 Blood Urea Nitrogen 7 MG/DL Creatinine 0.70 MG/DL Random Glucose 121 MG/DL Calcium Level 8.4 MG/DL Sodium Level 140 MEQ/L Potassium Level 3.7 MEQ/L Chloride Level 114 MEQ/L Carbon Dioxide Level 20.9 MEQ/L Anion Gap 5 MEQ/L Estimat Glomerular Filtration Rate 81 ML/MIN Current Medications Administered Medications Medications (Trade) Dose Ordered Sig/Nadia Route PRN Reason Start Time Stop Time Status Last Admin Dose Admin Sodium Chloride (NS Flush) 2 ml BID IV FLUSH 11/09/16 21:00 11/13/16 22:12 Heparin Sodium (Porcine) (Heparin Inj) 5,000 units Q12H SQ 11/09/16 14:00 11/14/16 03:05 Metronidazole 100 ml @ 100 mls/hr Q6H IV 11/09/16 14:00 11/14/16 03:06 Cefepime HCl 1000 mg/Sodium Chloride 100 ml @ 200 mls/hr Q8H IV 11/09/16 19:00 11/14/16 03:05 Dextrose/Sodium Chloride 1,000 ml @ 84 mls/hr [id number] IV 11/09/16 17:45 11/14/16 06:21 Gemfibrozil (Lopid) 600 mg BIDAC PO 11/10/16 07:00 11/14/16 06:21 Risperidone (risperDAL) 0.5 mg HS PO 11/09/16 21:00 11/13/16 22:12 Sertraline HCl (Zoloft) 100 mg DAILY PO 11/10/16 09:00 11/13/16 08:36 Lisinopril (Prinivil) 10 mg DAILY PO 11/10/16 09:00 11/13/16 08:36 Hydrochlorothiazide (Microzide) 12.5 mg DAILY PO 11/10/16 09:00 11/13/16 08:36 Vancomycin HCl 1250 mg/Sodium Chloride 262.5 ml @ 250 mls/hr Q24H IV 11/10/16 15:00 11/13/16 18:06 Tramadol HCl (Ultram) 50 mg TID PO 11/12/16 13:00 11/13/16 18:06 Risperidone (risperDAL) 2 mg HS PO 11/12/16 21:00 11/13/16 21:00 (Susana Owens) Physical Exam General General Appearance: Comfortable (doesn't move around a lot in the bed), Pale, Obese (Susana Owens) Eyes Eye Exam: Pupils Equal, Pupils Reactive (Susana Owens) Ears & Nose Ears & Nose Exam: Nasal Mucosa [place] (Susana Owens) Throat Throat Exam: Oral Mucosa [place] & Moist (very dry and cracked lips) (Susana Owens) Neck Neck Exam: Neck Supple (Susana Owens) Pulmonary Resp Exam: Decreased Bases, Diminished Breath Sounds, Poor Inspiratory Effort ( low to medium volumes) Resp Remarks No cough noted when taking sips of fluids needs total assistance will not initiate on her own (Susana Owens) Cardiology CV Exam: Regular (Susana Owens) Gastrointestinal/Abdomen GI Exam: Non-Tender, Bowel Sounds Present (off) GI Remarks Doesn't initiate eating or drinking, full feed per staff Decreased appetite (Susana Owens) Musculoskeletal MS Exam: Joints Intact, Atrophy (Susana Owens) Integumentary Skin Exam: Warm, Dry (Susana Owens) Extremeties Extremities Exam: No Edema (Susana Owens) Neurologic Neuro Exam: Awake, Speech Clear (or stand up) Neuro Remarks Doesn't appear to be initiating the response to eat or drink (Susana Owens) Psychiatric Psych Remarks Psychiatric consult pending (Susana Owens) Assessment/Plan Assessment/Plan Vital signs reviewed, afebrile, normal trends Labs reviewed, hypokalemia resolved hypernatremia resolved, blood sugar 121 Sepsis , resolved with normal WBC count today Pneumonia, possibly healthcare acquired, possibly aspiration related IV antibiotics continue vancomycin and cefepime, responded well to antibiotic therapy, cultures negative Swallow eval done, patient took small sips of liquids, but then it one point held liquid in her mouth would not swallow. Patient does not appear to be initiating to eat or drink . Calorie ct. Continue hydration with IV fluids for now, 84 cc an hour, for patient's hydration, patient is total feed per staff Dementia, schizophrenia, depression, medical management, psychiatric consult pending Hypertension, stable with medical management Chronic kidney disease stage III Monitor labs and dehydration DVT prophylaxis Physical therapy and speech therapy continue Palliative care consult. Attempting to contact brother who appears to be the closest of kin. Hasn't seen him in years. She is full code by default, if unable to contact brother may need to get involved with social work specialist [facility] planning when pt. is medically stable, Spoke with TRAVEL RN OR, nurse Discussed with Dr. Agarwal, seen on his behalf (Susana Owens) Assessment/Plan Patient seen and examined as above [id number] time spent with patient Labs reviewed Medications reviewed Plan of care discussed with AQUATIC BIOLOGIST as above Discussed with patient Discussed with psychiatrist Encourage by mouth intake Discussed with RN Will monitor on Megace if she still continues to have same low by mouth intake plan for PEG (Rogelio Agarwal MD) Susana Owens Nov 14, 2016 09:11 Rogelio Agarwal MD Nov 14, 2016 15:06
[2016-11-14] MEDS: HYDROCHLOROTHIAZIDE 12.5 MG CAP PO SCH (09:29)
[2016-11-14] MEDS: traMADol HCL 50 MG TAB PO SCH ×3 (09:29→18:12)
[2016-11-14] MEDS: LISINOPRIL 10 MG TAB PO SCH (09:29)
[2016-11-14] MEDS: POLYETHYLENE GLYCOL 17 GM PKG PO SCH (09:30)
[2016-11-14] MEDS: SERTRALINE HCL 100 MG TAB PO SCH (09:30)
[2016-11-14] MEDS: SODIUM CHLORIDE 0.9% FLUSH 10 ML FLUSH IV FLUSH SCH ×2 (09:30→21:00)
[2016-11-14 10:37] LABS: BICARBONATE 17.5 MEQ/L (21.0-32.0); POTASSIUM 3.5 MEQ/L (3.5-5.1)
--- NOTE | 2016-11-14 12:17 | PD.PSY.CON ---
Provisional Diagnosis Admission Date Nov 09, 2016 at 12:42 [place] I. Adjustment disorder with depression, history of MDD, anxiety, schizophrenia [place] II. Deferred History of Present Illness Service Psychiatry Consult Requested By Reason for Consult Decision-making capacity Primary Care Physician Jasper Haile M.D. HPI The patient its a 75-year-old woman, domicile in [facility], Patient resident of [facility] for the past 12 years. Resident of [facility] since November 2014, she is single, poor family support, with psychiatric history of depression, anxiety and schizophrenia, history of psychiatric hospitalizations, establish outpatient care with visiting psychiatrist in her residential facility , he is on Risperdal 0.5 mg in the morning, 2 mg at bedtime, Zoloft 100 mg, she has been stable in the psychotropic regimen for many months now, with a medical history of breast cancer status post bilateral mastectomy, hypertension , RA, chronic anemia, hepatitis B, GERD and arthritis. She was brought to the hospital via EMS for evaluation of altered mental status and fever. Chest x -ray revealing elevated right diaphragm and mild streaky parenchymal opacity on the right. Laboratory workup revealing leukocytosis, WBC 19.3, Hgb 11.8, platelet count 306. Lactic acid of 2.3. BUN/creatinine 27/1.35. UA negative for nitrates or leukocytes. Patient was admitted for further management of pneumonia, sepsis. She is consulted to psychiatry for decision making capacity , patient has been recommended to have a PEG tube and she refused. On psychiatric evaluation today patient is found in her room, calm, cooperative, at the beginning irritable and oppositional, stating that she is not here to see a psychiatrist, that she has been stable on her psychotropics. She reports okay mood, she says that she has been feeling sad due to her current medical problems. She reports back pain,5/10 now, denies other distress. She reports that she came to the hospital after she "passed out" at her long-term facility. Patient reports decreased appetite, decreased energy, and constant fatigue, but she denies hopelessness, she denies helplessness, she denies suicidal and homicidal ideation. She is future oriented, and states that she has the hope to get better. At this moment the patient is unable to verbalize a clear understanding of her current medical situation and appreciation of the meaning of her current medical conditions for her. Patient says that she is willing to follow medical recommendations and work with the team for what is best for her. Collateral information from Olivia from [facility], , was obtained. She says that the patient has been psychiatrically at baseline in the last 12 months. Patient is very compliant with her psychotropics. Says she is a resident there patient hasn't have any psychotic decompensation, aggressive behavior or agitation. Patient is described as a very calm and sweets person. Patient sees a psychiatrist and a psychologist monthly in the residential facility. She at times could be disorganized and tangential, but usually very redirectable. Patient denies the use of alcohol and illicit drugs. Review of Systems Endocrine: DENIES: Abnorml menstrual pattern, Heat/cold intolerance, Polydipsia , Polyuria, Polyphagia Eyes: DENIES: Blurred vision, Diplopia, Eye inflammation, Eye pain, Vision loss , Photosensitivity, Double Vision Ears, nose, mouth, throat: DENIES: Tinnitus, Hearing loss, Vertigo, Nasal discharge, Oral lesions, Throat pain, Hoarseness, Ear Pain, Running Nose, Epistaxis, Sinus Pain, Toothache, Odynophagia Respiratory: DENIES: Apneas, Cough, Snoring, Wheezing, Hemoptysis, Sputum production, Shortness of breath Gastrointestinal: DENIES: Abdominal pain, Black stools, Bloody stools, Constipation, Diarrhea, Nausea, Vomiting, Difficulty Swallowing, Anorexia Musculoskeletal: COMPLAINS OF: Back pain Integumentary: DENIES: Abnormal pigmentation, Pruritus, Rash, Nail changes, Breast masses, Breast skin changes, Nipple discharge Neurologic: DENIES: Abnormal gait, Headache, Localized weakness, Paresthesias, Seizures, Speech Problems, Tremor, Poor Balance Psychiatric: COMPLAINS OF: Depression, DENIES: Anxiety, Confusion, Mood changes , Hallucinations, Agitation, Suicidal Ideation, Homicidal Ideation, Delusions Past Family Social History Coded Allergies: aspirin (Unverified Allergy, Severe, 10/16/16) PT HAS TINNITUS penicillin G (Unverified Allergy, Severe, 10/16/16) Reported Medications Tramadol (Tramadol) 50 Mg Tab, 50 MG PO TID, TAB 0 Refills 11/09/16 Gemfibrozil (Gemfibrozil) 600 Mg Tab, 600 MG PO BIDAC, #60 TAB 0 Refills Take 30 minutes prior to breakfast and dinner. 11/09/16 Sertraline (Zoloft) 100 Mg Tab, 100 MG PO DAILY, #30 TAB 0 Refills 11/09/16 Risperidone (Risperidone) 2 Mg Tab, 2 MG PO HS, #30 TAB 0 Refills 11/09/16 Risperidone (Risperidone) 0.5 Mg Tab, 0.5 MG PO HS, #30 TAB 0 Refills 11/09/16 Polyethylene Glycol 3350 Powder (Polyethylene Glycol 3350 Powder) 17 Gram Pow, 17 GM PO DAILY for Constipation, #1 BOTTLE 0 Refills 11/09/16 Lisinopril-Hctz (Lisinopril-Hctz) 10-12.5 Mg Tab, 1 TAB PO DAILY for Blood Pressure Management, #30 TAB 0 Refills 11/09/16 Current Medications Medications (Trade) Dose Ordered Sig/Nadia Route Start Time Stop Time Status Last Admin (NS Flush) 2 ml UNSCH PRN IV FLUSH 11/09/16 13:15 (NS Flush) 2 ml BID IV FLUSH 11/09/16 21:00 11/14/16 09:30 (Tylenol) 650 mg Q4H PRN PO 11/09/16 13:15 (Zofran Inj) 4 mg Q6H PRN IVP 11/09/16 13:15 (Heparin Inj) 5,000 units Q12H SQ 11/09/16 14:00 11/14/16 03:05 (Narcan Inj) 0.4 mg UNSCH PRN IV 11/09/16 13:15 Metronidazole 100 ml @ 100 mls/hr Q6H IV 11/09/16 14:00 11/14/16 09:30 Cefepime HCl 1000 mg/Sodium Chloride 100 ml @ 200 mls/hr Q8H IV 11/09/16 19:00 11/14/16 11:43 Pharmacy Profile Note 0 ml @ 0 mls/hr UNSCH OTHER 11/09/16 13:15 Dextrose/Sodium Chloride 1,000 ml @ 84 mls/hr [id number] IV 11/09/16 17:45 11/14/16 06:21 (Lopid) 600 mg BIDAC PO 11/10/16 07:00 11/14/16 06:21 (risperDAL) 0.5 mg HS PO 11/09/16 21:00 11/13/16 22:12 (Prinivil) 10 mg DAILY PO 11/10/16 09:00 11/14/16 09:29 (Microzide) 12.5 mg DAILY PO 11/10/16 09:00 11/14/16 09:29 Vancomycin HCl 1250 mg/Sodium Chloride 262.5 ml @ 250 mls/hr Q24H IV 11/10/16 15:00 11/13/16 18:06 (Miralax) 17 gm DAILY PO 11/13/16 09:00 11/14/16 09:30 (Ultram) 50 mg TID PO 11/12/16 13:00 11/14/16 09:29 (risperDAL) 2 mg HS PO 11/12/16 21:00 11/13/16 21:00 Miscellaneous Information SPECIFIC LAB TO BE [facility]... ONCE ONCE .XX 11/14/16 14:45 11/14/16 14:46 (Zoloft) 150 mg DAILY PO 11/15/16 09:00 UNV Family History She denies family psychiatric history Social History Patient was born in [place], she lives in a residential facility, she is single, no kids, Patient's Strengths (min. 2) Verbal communication, compliant with medications, established outpatient care Physical Exam Vital Signs Vital Signs Date Time Temp Pulse Resp B/P (MAP) Pulse Ox O2 Delivery O2 Flow Rate FiO2 11/14/16 09:48 Nasal Cannula 2.00 11/14/16 09:48 76 11/14/16 08:53 97.9 20 157/70 (99) 98 I/O 11/14/16 11/14/16 11/15/16 08:00 16:00 00:00 Intake Total 2426 ml 100 ml Balance 2426 ml 100 ml Lab Results Test 11/13/16 17:45 Blood Urea Nitrogen 7 MG/DL Creatinine 0.70 MG/DL Random Glucose 121 MG/DL Calcium Level 8.4 MG/DL Sodium Level 140 MEQ/L Potassium Level 3.7 MEQ/L Chloride Level 114 MEQ/L Carbon Dioxide Level 20.9 MEQ/L Anion Gap 5 MEQ/L Estimat Glomerular Filtration Rate 81 ML/MIN Date/Time Source Procedure Growth Status 11/09/16 10:24 Blood Peripheral Aerobic Blood Culture - Final NO GROWTH IN 5 DAYS Complete 11/09/16 10:24 Blood Peripheral Anaerobic Blood Culture - Final NO GROWTH IN 5 DAYS Complete Mental Status Examination Appearance woman, age appearing, [facility], she is calm, superficially cooperative, a little bit oppositional Speech: Unremarkable Orientation: x3 Memory: Unremarkable Thought Process: Logical Thought Content: Unremarkable Hallucination Type: None Attention and Concentration: Good Suicidal Ideation: No Previous Suicide Attempts: No Homicidal Ideation: No Previous Homicide Attempts: No Insight: Good Judgment: Poor Affect: Sad Affect if Inappropriate: Blunt Mood: Sad Motor Activity: Normal gait Assessment & Plan Problem List: (1) Chronic schizophrenia ICD Codes: F20.9 - Schizophrenia, unspecified (2) Adjustment disorder with depressed mood ICD Codes: F43.21 - Adjustment disorder with depressed mood Assessment & Plan: On psychiatric evaluation today patient is a little bit oppositional and irritable, but finally cooperative. She reports symptomatology of depression consisting on fatigued, poor sleep, frequent sadness, lack of motivation, decreased concentration, are most probably secondary to current medical condition and pain. She denies hopelessness, she denies helplessness, she denies worthlessness, she denies suicidal and homicidal ideation. As visual and auditory hallucinations. Patient is logical , coherent and relevant. Oriented 3. At times tangential, but redirectable. No attention deficit, no fluctuation of consciousness present. Patient seems to be a baseline psychiatrically at this moment. Depressive symptoms seems to be secondary toand exacerbated by current medical situation. Can continue Risperdal 0.5 mg in the morning and 2 mg at bedtime. Will increase Zoloft to 150 mg daily. Patient is able to express the choice of continuing and following medical recommendations. She is also able to verbalize a for understanding and appreciation of medical conditions. Patient seems to be capacitated to agree and participate in medical discussion based on this evaluation. However, is important to clarify that decision-making capacity can vary from moment to moment according with mental status. Another important issue is that decision-making capacity threshold increases and decreases depending of the particular medical/specific question. In this case patient does not seem to be refusing medical treatment that could be potentially life- threatening. But, if in the future, while in the patient is hospitalized, questions about her decision-making capacity arise related with any particular medical reason, for example: If she refuses PEG, her decision medical capacity can be reassessed. In this case please contact me directly, . Consul appreciated. Assessment & Plan Estimated LOS: days Donovan Crawford MD Nov 14, 2016 12:17
[2016-11-14] MEDS ORDERED: PHARMACY ORDERED LAB-VANCO TROUGH ONE (14:45)
[2016-11-14] MEDS: VANCOMYCIN INJ 1,250 MG in SODIUM CHLOR 0.9% 250 ML INJ 250 ML IV SCH (15:01)
--- NOTE | 2016-11-14 15:15 | HHI.HCPN ---
Reason for visit a. To assist with evaluation and management of symptoms including: Debility and pain. b. To assist medical decision maker(s) with: better understanding of current medical conditions; weighing benefits/burdens of medical treatment options; making medical treatment decisions. . (Celia Mendez) Subjective/Interval History Mrs. Sood its a 75-year-old female with a medical history significant for schizophrenia, breast cancer status post bilateral mastectomy, hypertension, major depressive disorder, anxiety, RA, chronic anemia, hepatitis B, GERD and arthritis. Patient is a resident of a long-term facility, she presented to ED on 11/09/16 via EMS for evaluation of altered mental status and fever. Patient was admitted for further management of pneumonia, sepsis. Dual visit with palliative care [facility] Myke Wolf. Patient seen in her room, she was resting in bed in no acute distress. Alert and oriented x self, place and situation. Intermittently confused. Verbal, slurred speech but able to communicate needs. Patient endorsing generalized pain, worsen to bilateral lower extremities. Endorsing feeling very weak/daughter. Reports appetite has improved. Denies shortness of breath, nausea vomiting or abdominal discomfort. Patient afebrile, remains hypertensive with SBP in the 150s. Currently tolerating O2 via nasal cannula, oxygen saturation in the high 90s. No new laboratory workup or imaging available for review. Patient has been seen by psychiatry, Dr. Crawford. Patient with history of schizophrenia. As per medical facility, patient compliant with her psychotropic medications. She is being followed by psychiatry and psychology monthly at her residential facility. As per psychiatry, "patient seems to be capacitated to agree and participating in medical discussion based on this evaluation. Goals of care conversation with patient. Discussed risks, benefits and limitations of CPR, intubation and mechanical ventilation. Patient verbalized NOT wishing those interventions. Discussed concerns regarding decrease oral intake, discussed PEG tube. Patient verbalized NOT wishing a PEG tube. She further verbalized NOT wishing to have "tubes attached" to her. Discussed that we have been unable to locate his brother Davi. Patient verbalized NOT having any additional family members. Introduced living will and healthcare surrogate decision maker, patient declined completion at this time. . Family/friend interactions Received [employer] report of patient's brother Davi Sood. Unable to locate. Found possible family member, Davi Sood Jr. -voicemail. . No answer, unable to leave message. . (Celia Mendez) Advance Directives Living Will: Never completed Health Care Surrogate: Never completed Durable Power of Station Attendant: Never completed (Celia Mendez) Advance Directive Specifics Health Care Surrogate(s): No advance directives completed. As per [place] statute, healthcare proxy decision-making falls to patient's only brother Davi Sood. . Significant change in goals: No code. Continue current conservative management short of no code. . (Celia Mendez) Objective Vital Signs Date Time Temp Pulse Resp B/P (MAP) Pulse Ox O2 Delivery O2 Flow Rate FiO2 11/14/16 13:20 97.6 75 20 174/79 (110) 98 11/14/16 09:48 Nasal Cannula 2.00 11/14/16 09:48 76 11/14/16 08:53 97.9 74 20 157/70 (99) 98 11/14/16 04:00 98.1 72 18 136/63 (87) 99 11/14/16 00:00 98.3 77 18 152/72 (98) 97 11/13/16 20:00 97 Nasal Cannula 2.00 11/13/16 20:00 97.6 84 16 157/73 (101) 97 11/13/16 16:00 98.0 71 18 142/70 (94) 96 Intake & Output 11/14/16 11/14/16 07:00 19:00 Intake Total 2426 ml 100 ml Balance 2426 ml 100 ml Intake Oral 120 ml IV Total 2306 ml 100 ml # Voids 3 # Bowel Movements 0 Physical Exam CONSTITUTIONAL/GENERAL: This is an adequately nourished patient in no apparent distress. TUBES/LINES/DRAINS: PIV's, nasal cannula. SKIN: Pale. No jaundice, rashes, or lesions. Ecchymoses on upper extremities. No wounds seen anteriorly. Skin temperature appropriate. Not diaphoretic. HEAD: Atraumatic. Normocephalic. EYES: Pupils equal and round and reactive. Extraocular motions intact. No scleral icterus. No injection or drainage. ENT: Hearing grossly normal. Nose without bleeding or purulent drainage. Dry lips. NECK: Trachea midline. Supple, nontender. CARDIOVASCULAR: Regular rate and rhythm without murmurs, gallops, or rubs. No JVD. Peripheral pulses symmetric. RESPIRATORY/CHEST: Symmetric, unlabored respirations. Clear to auscultation. Breath sounds equal bilaterally. No wheezes, rales, or rhonchi. GASTROINTESTINAL: Abdomen soft, non-tender, nondistended. No guarding. Bowel sounds present. GENITOURINARY: Without palpable bladder distension. MUSCULOSKELETAL: Extremities without cyanosis, or edema. No mottling or clubbing. NEUROLOGICAL: Awake and alert x self, place and situation. Motor and sensory grossly within normal limits. Follows commands. Moves all extremities. Able to communicate needs. PSYCHIATRIC: Calm. Pleasant. . (Celia Mendez) Diagnostic Tests Laboratory Laboratory Tests Test 11/12/16 07:40 11/13/16 08:06 11/13/16 17:45 Blood Urea Nitrogen 7 MG/DL (7-18) 7 MG/DL (7-18) 7 MG/DL (7-18) Creatinine 0.85 MG/DL (0.50-1.00) 0.72 MG/DL (0.50-1.00) 0.70 MG/DL (0.50-1.00) Random Glucose 129 MG/DL (74-106) 127 MG/DL (74-106) 121 MG/DL (74-106) Calcium Level 7.7 MG/DL (8.5-10.1) 8.1 MG/DL (8.5-10.1) 8.4 MG/DL (8.5-10.1) Sodium Level 145 MEQ/L (136-145) 143 MEQ/L (136-145) 140 MEQ/L (136-145) Potassium Level 3.4 MEQ/L (3.5-5.1) 3.5 MEQ/L (3.5-5.1) 3.7 MEQ/L (3.5-5.1) Chloride Level 118 MEQ/L (98-107) 116 MEQ/L (98-107) 114 MEQ/L (98-107) Carbon Dioxide Level 18.0 MEQ/L (21.0-32.0) 17.5 MEQ/L (21.0-32.0) 20.9 MEQ/L (21.0-32.0) Anion Gap 9 MEQ/L (5-15) 10 MEQ/L (5-15) 5 MEQ/L (5-15) Estimat Glomerular Filtration Rate 65 ML/MIN (>89) 79 ML/MIN (>89) 81 ML/MIN (>89) (Celia Mendez) Result Diagram: 11/11/16 0850 11/13/16 9528 Assessment and Plan Disease Oriented Problem List: (1) Sepsis (2) Pneumonia (3) Schizophrenia (4) Hypertension (5) Rheumatoid arthritis (6) Major depressive disorder Symptom Scale: (1) Pain 0-10 Scale: Unable to quantify Comment: Chronic (2) Anxiety 0-10 Scale: Unable to quantify Comment: Chronic (3) Debility 0-10 Scale: Unable to quantify Comment: Progressive. Pertinent Non-Medical Issues Psychosocial: Patient originally from [place]. Moved to [place] over 20 years ago. 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 Patient is single. She reports that she had a son but "was given away". Both parents are , one brother Felice at known age secondary to acute IL. One remaining brother by the name of Davi Sood who she has not seen in over 12 years. Spiritual: No lutheran affiliation. Legal: No advance directives completed. Ethical issues impacting care: Patient with history of psychoaffective disorder/ questionable dementia. Participating in medical decision-making at this time. No advance directives completed. . Important Contacts Brother Davi Sood , & . . Prognosis Mrs. Sood its a 75-year-old female with a medical history significant for schizophrenia, breast cancer status post bilateral mastectomy, hypertension, major depressive disorder, anxiety, RA, chronic anemia, hepatitis B, GERD and arthritis. Patient is a resident of a long-term facility, she presented to ED on 11/09/16 via EMS for evaluation of altered mental status and fever. Patient was admitted for management of sepsis, pneumonia. Clinical course complicated by decreased oral intake, concerns of patient's ability to meet her caloric needs. Patient at high risk for further complications, continue decline and . . Code Status: No Code Plan * CODE STATUS: No code. DNR/DNI. Risks, benefits and limitations of CPR discussed with patient. Patient verbalized NOT wishing any invasive interventions/procedures. Community DNR introduced, patient declined completion at this time. * HEALTHCARE DECISION-MAKING: Patient participating in medical decision-making. However, history of schizoaffective disorder. Evaluated by psychiatry, Dr. Crawford on 11/14/16. Patient found to be capacitated for medical decision- making. No advance directives completed. As per [place] statute, healthcare proxy decision-making falls to patient's only surviving brother Davi Sood - Ongoing attempts at contacting patient's brother. [employer] report secured, unable to reach brother. * Living will and designation of healthcare surrogate decision maker introduced to patient. Patient verbalized not having any family or close friend to designate. Patient declined completion of advance directives at this time. * GOALS OF CARE: Patient electing to continue conservative management short of no code. Patient clearly verbalized NOT wishing any invasive interventions/ procedures such as CPR, intubation, mechanical ventilation or PEG tube. Palliative care will continue to follow-up for assistance with completion of advance directives. * SYMPTOMS: = Pain, history of osteoarthritis, compression fracture to second lumbar vertebrae. Currently on home regimen of tramadol 50 mg 3 times a day. = Anxiety, chronic. Patient with diagnosis of schizoaffective disorder. Currently on Zoloft daily and risperidone at bedtime. = Debility, progressive. Resident of long-term facility, requiring assistance with all ADLs besides feeding. Wheelchair bound. * Case discussed bedside IVAN Cain. * Palliative care will continue to follow-up for further clarifications of goals of care as patient's clinical course continues to evolve. . . (Celia Mendez) Time Spent Total Floor Time (mins): 36 (Total time to include review medical records, physical exam, goals of care conversation with patient, multiple attempts at contacting patient's brother Davi.) >50% Counseling/Coord of Care: Yes (Celia Mendez) Attestation To help prompt me to consider important information that might be impacting today's encounter and assessment, information from prior notes written by myself or my colleagues may have been "brought forward" into today's note. My signature on this note, however, is an attestation that I personally performed the exam, history, and/or decision-making noted today, and, unless otherwise indicated, the interactions with patient, family, and staff as well as the review of records all occurred today. I also attest that the listed assessment and stated plan reflect my best clinical judgment today based on the combination of historical information, prior notes, and today's exam/ interactions. When time spent is documented, it refers only to time spent today by the signer, or if indicated, combined time spent today by collaborating physician/nurse practitioner. (Celia Mendez) Collaborating MD Comments Chart reviewed. Case discussed with palliative care TECHNICIAN'S HELPER. Above note reviewed and I concur. . (Anival Dominique MD) Celia Mendez Nov 14, 2016 15:15 Anival Dominique MD Dec 09, 2016 11:54
[2016-11-14] MEDS: risperiDONE 1 MG TAB PO SCH (21:38)
[2016-11-14] MEDS: risperiDONE 0.5 MG TAB PO SCH (21:39)
[2016-11-15] VITALS (7 sets, daily range): BP systolic 132–156; BP diastolic 66–89; PULSE 72–90; RESP 18–24; TEMP 97.8–98.5; O2SAT 95–97
[2016-11-15] MEDS: CEFEPIME INJ 1,000 MG in SODIUM CHLORIDE 0.9% INJ 100 ML IV SCH ×3 (01:53→22:30)
[2016-11-15] MEDS: DEXT 5%-NACL 0.45% 1000 ML INJ 1,000 ML IV SCH ×2 (01:54→16:45)
[2016-11-15] MEDS: metroNIDAZOLE 500 MG INJ 100 ML IV SCH ×3 (01:54→13:42)
[2016-11-15] MEDS: HEPARIN SODIUM - SQ 10,000 UNITS/ML VIAL SQ SCH ×2 (01:54→13:35)
[2016-11-15] MEDS: GEMFIBROZIL 600 MG TAB PO SCH ×2 (06:18→17:46)
[2016-11-15] MEDS: POLYETHYLENE GLYCOL 17 GM PKG PO SCH (09:00)
[2016-11-15] MEDS: SERTRALINE HCL 100 MG TAB PO SCH (09:49)
[2016-11-15] MEDS: HYDROCHLOROTHIAZIDE 12.5 MG CAP PO SCH (09:50)
[2016-11-15] MEDS: LISINOPRIL 10 MG TAB PO SCH (09:50)
[2016-11-15] MEDS: traMADol HCL 50 MG TAB PO SCH ×3 (09:50→17:50)
[2016-11-15] MEDS: SODIUM CHLORIDE 0.9% FLUSH 10 ML FLUSH IV FLUSH SCH ×2 (09:51→22:30)
--- NOTE | 2016-11-15 12:30 | HHI.PR ---
Subjective Remarks Awakes to voice, oriented 2 Very weak Voice very soft Poor appetite, getting eat very much States she doesn't want a "tube" to eat minimal cough no sputum no fever Objective Objective Results - Vital Signs Date Time Temp Pulse Resp B/P (MAP) Pulse Ox O2 Delivery O2 Flow Rate FiO2 11/15/16 08:00 97.9 72 18 156/74 (101) 95 11/15/16 04:00 98.3 73 24 154/66 (95) 97 11/15/16 00:00 98.3 90 21 154/72 (99) 95 11/14/16 20:00 81 11/14/16 20:00 98.3 87 19 162/68 (99) 98 11/14/16 16:46 97.3 78 18 141/88 (105) 97 11/14/16 13:20 97.6 75 20 174/79 (110) 98 I/O 11/14/16 11/14/16 11/14/16 11/15/16 11/15/16 11/15/16 07:00 15:00 23:00 07:00 15:00 23:00 Intake Total 2426 ml 460 ml 875 ml 680 ml Balance 2426 ml 460 ml 875 ml 680 ml Intake Oral 120 ml 360 ml 480 ml IV Total 2306 ml 100 ml 875 ml 200 ml # Voids 3 3 4 # Bowel Movements 0 1 3 Result Diagram: 11/11/16 0850 11/13/16 1745 Imaging Last Impressions Chest X-Ray 11/09/16 1019 Signed Impressions: Service Date/Time: Wednesday, November 09, 2016 10:21 - CONCLUSION: Elevated right diaphragm and mild streaky parenchymal opacity on the right of undetermined chronicity. Jose Love MD Other Results Laboratory Tests Test 11/14/16 15:00 Vancomycin Level Trough 13.5 Date/Time Source Procedure Growth Status 11/09/16 10:24 Blood Peripheral Aerobic Blood Culture - Final NO GROWTH IN 5 DAYS Complete 11/09/16 10:24 Blood Peripheral Anaerobic Blood Culture - Final NO GROWTH IN 5 DAYS Complete ROS General: Other (UNABLE TO OBTAIN ROS ) Physical Exam Physical Exam GENERAL: This is a well-nourished, well-developed patient, in no apparent distress. SKIN: No rashes, ecchymoses or lesions. Cool and dry. HEAD: Atraumatic. Normocephalic. No temporal or scalp tenderness. EYES: Pupils equal round and reactive. Extraocular motions intact. No scleral icterus. No injection or drainage. ENT: Nose without bleeding, purulent drainage or septal hematoma. Throat without erythema, tonsillar hypertrophy or exudate. Uvula midline. Airway patent. NECK: Trachea midline. No JVD or lymphadenopathy. Supple, nontender, no meningeal signs. CARDIOVASCULAR: Regular rate and rhythm with soft murmurs, no gallops, no rubs. RESPIRATORY: Poor inspiratory effort, diminished at bases. Has a cough, nonproductive. GASTROINTESTINAL: Abdomen soft, non-tender, nondistended. No hepato-splenomegaly , or palpable masses. No guarding. MUSCULOSKELETAL: Extremities without clubbing, cyanosis, or edema. No joint tenderness, effusion, or edema noted. No calf tenderness. Negative Homans sign bilaterally. NEUROLOGICAL: Awakes to voice, oriented to place. Weak to upper extremities and lower extremities. Doesn't follow commands consistently. Doesn't appear to have any focal deficits. A/P Diagnosis: (1) Sepsis ICD Codes: A41.9 - Sepsis, unspecified organism Status: Acute (2) Pneumonia ICD Codes: J18.9 - Pneumonia, unspecified organism Status: Acute (3) Dementia ICD Codes: F03.90 - Unspecified dementia without behavioral disturbance Status: Chronic (4) Altered mental status ICD Codes: R41.82 - Altered mental status, unspecified Status: Acute (5) Depression ICD Codes: F32.9 - Major depressive disorder, single episode, unspecified Status: Chronic (6) GERD (gastroesophageal reflux disease) ICD Codes: K21.9 - Gastro-esophageal reflux disease without esophagitis Status: Chronic (7) CKD (chronic kidney disease) stage 3, GFR 30-59 ml/min ICD Codes: N18.3 - Chronic kidney disease, stage 3 (moderate) Status: Chronic Assessment and Plan 75-year-old female [facility], presented with altered mental status and fever. Found with sepsis, with findings of lactic acidosis, fever, tachycardia, tachypnea and chest x-ray findings of probable pneumonia. Sepsis Pneumonia, possibly healthcare acquired -Cultures remain negative -Change to by mouth antibiotics -Continue with diet per speech recommendation -Monitor for aspiration -Improving, WBC trending down, afebrile. Anorexia, poor by mouth intake -Nutrition is following -Continue with calorie -Encourage by mouth intake -Continue with ensure Dementia History of schizophrenia History of depression and anxiety -Continue Zoloft, risperidone -Appreciate psychiatric input, medications adjusted Hypertension -Continue lisinopril hydrochlorothiazide Chronic kidney disease stage III -Continue IV fluids -Renal function markedly improved Continue physical therapy Heparin 5000 units subcutaneous twice a day for DVT prophylaxis Appreciate palliative care input, patient does not want PEG tube. DNR status Repeat labs in the morning Case management for discharge planning, possible discharge to SNF tomorrow Discussed with her Discussed with patient Discussed with Dr. Agarwal This patient was seen by myself and Dr. Agarwal, this note is written his behalf Problem Qualifiers (1) Sepsis: Qualified Codes: A41.9 - Sepsis, unspecified organism (2) Pneumonia: Qualified Codes: J18.1 - Lobar pneumonia, unspecified organism (3) Dementia: Qualified Codes: F03.90 - Unspecified dementia without behavioral disturbance (4) Altered mental status: Qualified Codes: R40.4 - Transient alteration of awareness (5) Depression: Qualified Codes: F32.9 - Major depressive disorder, single episode, unspecified (6) GERD (gastroesophageal reflux disease): Qualified Codes: K21.9 - Gastro-esophageal reflux disease without esophagitis Angelika Duran Nov 15, 2016 12:30
[2016-11-15] MEDS ORDERED: VANCOMYCIN 1,500 MG/NS 500 ML IV SCH ×2 (15:00)
--- NOTE | 2016-11-15 15:09 | HHI.HCPN ---
Reason for visit a. To assist with evaluation and management of symptoms including: Debility and pain. b. To assist medical decision maker(s) with: better understanding of current medical conditions; weighing benefits/burdens of medical treatment options; making medical treatment decisions. . Subjective/Interval History Mrs. Sood its a 75-year-old female with a medical history significant for schizophrenia, breast cancer status post bilateral mastectomy, hypertension, major depressive disorder, anxiety, RA, chronic anemia, hepatitis B, GERD and arthritis. Patient is a resident of a long-term facility, she presented to ED on 11/09/16 via EMS for evaluation of altered mental status and fever. Patient was admitted for further management of pneumonia, sepsis. Dual visit with palliative care [employer]ENTION SERGEANT Myke Wolf. Patient seen in her room, awake with no signs of acute distress. Alert and oriented x self, place and situation with intermittent confusion. Verbal, slurred speech but able to communicate needs. Reports appetite has improved and he has had slight increase in oral intake. Denies shortness of breath, nausea vomiting or abdominal discomfort. Endorsing generalized pain exacerbated by movement. Patient afebrile, remains hypertensive with SBP ranging from 140s to 170s. Currently tolerating O2 via nasal cannula, oxygen saturation in the high 90s. No new laboratory workup or imaging available for review. Goals of care readdressed today with patient. Discussed risks, benefits and limitations of CPR, intubation and mechanical ventilation. Patient again verbalized NOT wishing those interventions but declines completing community DNR at this time. Discussed concerns regarding decrease oral intake, discussed PEG tube. Patient verbalized NOT wishing a PEG tube or having to be connected to any tubes. Notified patient that we have been unable to locate her brother Davi. Reintroduced living will and healthcare surrogate decision maker, patient declined completion again at this time. Patient receptive to palliative care f/u visit. . Family/friend interactions No family at bedside. Palate of care has been unable to locate patient's brother. . Advance Directives Living Will: Never completed Health Care Surrogate: Never completed Durable Power of Associate Professor Of History: Never completed Advance Directive Specifics Health Care Surrogate(s): No advance directives completed. As per [place] statute, healthcare proxy decision-making falls to patient's only brother Davi Sood. . Significant change in goals: Goals of therapy remain unchanged. . Objective Vital Signs Date Time Temp Pulse Resp B/P (MAP) Pulse Ox O2 Delivery O2 Flow Rate FiO2 11/15/16 12:00 98.1 78 18 153/82 (105) 95 11/15/16 08:00 97.9 72 18 156/74 (101) 95 11/15/16 04:00 98.3 73 24 154/66 (95) 97 11/15/16 00:00 98.3 90 21 154/72 (99) 95 11/14/16 20:00 81 11/14/16 20:00 98.3 87 19 162/68 (99) 98 11/14/16 16:46 97.3 78 18 141/88 (105) 97 Intake & Output 11/15/16 11/15/16 07:00 19:00 Intake Total 680 ml Balance 680 ml Intake Oral 480 ml IV Total 200 ml # Voids 4 # Bowel Movements 3 Physical Exam CONSTITUTIONAL/GENERAL: This is an adequately nourished patient in no apparent distress. TUBES/LINES/DRAINS: PIV's, nasal cannula. SKIN: Pale. No jaundice, rashes, or lesions. Ecchymoses on upper extremities. No wounds seen anteriorly. Skin temperature appropriate. Not diaphoretic. HEAD: Atraumatic. Normocephalic. EYES: Pupils equal and round and reactive.No scleral icterus. No injection or drainage. Extraocular motions intact . ENT: Hearing grossly normal. Nose without bleeding or purulent drainage. Dry lips. NECK: Trachea midline. Supple, nontender. CARDIOVASCULAR: Regular rate and rhythm without murmurs, gallops, or rubs. No JVD. Peripheral pulses symmetric. RESPIRATORY/CHEST: Symmetric, unlabored respirations. Clear to auscultation. Breath sounds equal bilaterally. No wheezes, rales, or rhonchi. GASTROINTESTINAL: Abdomen soft, non-tender, nondistended. No guarding. Bowel sounds present. GENITOURINARY: Without palpable bladder distension. MUSCULOSKELETAL: Extremities without cyanosis, or edema. No mottling or clubbing. NEUROLOGICAL: Awake and alert x self, place and situation. Motor and sensory grossly within normal limits. Follows commands. Moves all extremities with decreased strength. Able to communicate needs. PSYCHIATRIC: Calm. Pleasant. . Diagnostic Tests Laboratory Laboratory Tests Test 11/13/16 08:06 11/13/16 17:45 11/14/16 15:00 Blood Urea Nitrogen 7 MG/DL (7-18) 7 MG/DL (7-18) Creatinine 0.72 MG/DL (0.50-1.00) 0.70 MG/DL (0.50-1.00) Random Glucose 127 MG/DL (74-106) 121 MG/DL (74-106) Calcium Level 8.1 MG/DL (8.5-10.1) 8.4 MG/DL (8.5-10.1) Sodium Level 143 MEQ/L (136-145) 140 MEQ/L (136-145) Potassium Level 3.5 MEQ/L (3.5-5.1) 3.7 MEQ/L (3.5-5.1) Chloride Level 116 MEQ/L (98-107) 114 MEQ/L (98-107) Carbon Dioxide Level 17.5 MEQ/L (21.0-32.0) 20.9 MEQ/L (21.0-32.0) Anion Gap 10 MEQ/L (5-15) 5 MEQ/L (5-15) Estimat Glomerular Filtration Rate 79 ML/MIN (>89) 81 ML/MIN (>89) Vancomycin Level Trough 13.5 MCG/ML (5.0-10.0) Result Diagram: 11/11/16 0850 11/13/16 7071 Assessment and Plan Disease Oriented Problem List: (1) Sepsis (2) Pneumonia (3) Schizophrenia (4) Hypertension (5) Rheumatoid arthritis (6) Major depressive disorder Symptom Scale: (1) Pain 0-10 Scale: Unable to quantify Comment: Chronic (2) Anxiety 0-10 Scale: Unable to quantify Comment: Chronic (3) Debility 0-10 Scale: Unable to quantify Comment: Progressive. Pertinent Non-Medical Issues Psychosocial: Patient originally from [place]. Moved to [place] over 20 years ago. 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 Patient is single. She reports that she had a son but "was given away". Both parents are , one brother Felice at known age secondary to acute ND. One remaining brother by the name of Davi Sood who she has not seen in over 12 years. Spiritual: No church affiliation. Legal: No advance directives completed. Ethical issues impacting care: Patient with history of psychoaffective disorder/ questionable dementia. Participating in medical decision-making at this time. No advance directives completed. . Important Contacts Brother Davi Sood , & . . Prognosis Mrs. Sood its a 75-year-old female with a medical history significant for schizophrenia, breast cancer status post bilateral mastectomy, hypertension, major depressive disorder, anxiety, RA, chronic anemia, hepatitis B, GERD and arthritis. Patient is a resident of a long-term facility, she presented to ED on 11/09/16 via EMS for evaluation of altered mental status and fever. Patient was admitted for management of sepsis, pneumonia. Clinical course complicated by decreased oral intake, concerns of patient's ability to meet her caloric needs. Patient at high risk for further complications, continue decline and . . Code Status: No Code Plan * CODE STATUS: No code. DNR/DNI. Risks, benefits and limitations of CPR discussed with patient. Patient verbalized NOT wishing any invasive interventions/procedures. Community DNR introduced, patient declined completion at this time. * HEALTHCARE DECISION-MAKING: Patient participating in medical decision-making. However, history of schizoaffective disorder. Evaluated by psychiatry, Dr. Crawford on 11/14/16. Patient found to be capacitated for medical decision- making. No advance directives completed. As per [place] statute, healthcare proxy decision-making falls to patient's only surviving brother Davi Sood - Ongoing attempts at contacting patient's brother. * Living will and designation of healthcare surrogate decision maker introduced to patient. Patient verbalized not having any family or close friend to designate. Patient declined completion of advance directives at this time. * GOALS OF CARE: 11/15/16 -Patient electing to continue conservative management short of no code. Patient clearly reinforced NOT wishing any invasive interventions/procedures such as CPR, intubation, mechanical ventilation or PEG tube. Palliative care will continue to follow-up for assistance with completion of advance directives. * SYMPTOMS: = Pain, history of osteoarthritis, compression fracture to second lumbar vertebrae. Currently on home regimen of tramadol 50 mg 3 times a day. = Anxiety, chronic. Patient with diagnosis of schizoaffective disorder. Currently on Zoloft daily and risperidone at bedtime. = Debility, progressive. Resident of long-term facility, requiring assistance with all ADLs besides feeding. Wheelchair bound. * Palliative care contact information was provided to patient. * Palliative care will continue to follow-up as needed for further clarifications of goals of care as patient's clinical course continues to evolve. . Time Spent Total Floor Time (mins): 24 (Total time to include review of medical records, physical exam, minutes of care conversation with patient, education regarding advance directives and community DNR.) >50% Counseling/Coord of Care: Yes Attestation To help prompt me to consider important information that might be impacting today's encounter and assessment, information from prior notes written by myself or my colleagues may have been "brought forward" into today's note. My signature on this note, however, is an attestation that I personally performed the exam, history, and/or decision-making noted today, and, unless otherwise indicated, the interactions with patient, family, and staff as well as the review of records all occurred today. I also attest that the listed assessment and stated plan reflect my best clinical judgment today based on the combination of historical information, prior notes, and today's exam/ interactions. When time spent is documented, it refers only to time spent today by the signer, or if indicated, combined time spent today by collaborating physician/nurse practitioner. Celia Mendez Nov 15, 2016 15:09
[2016-11-15] MEDS ORDERED: AMOXICILLIN/CLAVULANATE K 500 MG TAB PO SCH (21:00)
[2016-11-15] MEDS ORDERED: CEFEPIME INJ 1,000 MG in SODIUM CHLORIDE 0.9% INJ 100 ML IV SCH (21:15)
[2016-11-15] MEDS: risperiDONE 0.5 MG TAB PO SCH (22:29)
[2016-11-15] MEDS: risperiDONE 1 MG TAB PO SCH (22:29)
[2016-11-16] VITALS: BP 110/57; PULSE 72; RESP 18; TEMP 98.1; O2SAT 96
[2016-11-16] MEDS: HEPARIN SODIUM - SQ 10,000 UNITS/ML VIAL SQ SCH ×2 (02:00→13:01)
[2016-11-16 04:00] VITALS: BP 118/74; PULSE 80; RESP 16; TEMP 98.6; O2SAT 97
[2016-11-16] MEDS: DEXT 5%-NACL 0.45% 1000 ML INJ 1,000 ML IV SCH ×2 (06:00→16:35)
[2016-11-16] MEDS: CEFEPIME INJ 1,000 MG in SODIUM CHLORIDE 0.9% INJ 100 ML IV SCH (06:01)
[2016-11-16] MEDS: GEMFIBROZIL 600 MG TAB PO SCH ×2 (06:01→17:40)
[2016-11-16] MEDS: SODIUM CHLORIDE 0.9% FLUSH 10 ML FLUSH IV FLUSH SCH (07:44)
[2016-11-16 08:00] VITALS: BP 128/60; PULSE 73; RESP 18; TEMP 98.1; O2SAT 96
[2016-11-16] MEDS: POLYETHYLENE GLYCOL 17 GM PKG PO SCH (09:01)
[2016-11-16] MEDS: traMADol HCL 50 MG TAB PO SCH ×3 (09:02→17:40)
[2016-11-16] MEDS: SERTRALINE HCL 100 MG TAB PO SCH (09:02)
[2016-11-16] MEDS: LISINOPRIL 10 MG TAB PO SCH (09:02)
[2016-11-16] MEDS: HYDROCHLOROTHIAZIDE 12.5 MG CAP PO SCH (09:02)
[2016-11-16 10:48] LABS: HEMATOCRIT 31.7 % (35.0-46.0); MEAN CELL VOLUME 84.7 FL (80.0-100.0); MEAN CORPUSCULAR HGB CONC 33.1 % (32.0-36.0); PLATELET COUNT 333 TH/MM3 (150-450); RED BLOOD COUNT 3.74 MIL/MM3 (4.00-5.30); RED CELL DISTRIBUTION WIDTH 12.2 % (11.6-17.2); REVIEW FLAG FINAL; WHITE BLOOD COUNT 9.8 TH/MM3 (4.0-11.0)
[2016-11-16 10:55] LABS: BICARBONATE 18.8 MEQ/L (21.0-32.0); MAGNESIUM 1.7 MG/DL (1.5-2.5); POTASSIUM 3.4 MEQ/L (3.5-5.1)
[2016-11-16 12:00] VITALS: BP 152/70; PULSE 75; RESP 18; TEMP 97.9; O2SAT 95
--- NOTE | 2016-11-16 12:03 | HHI.PR ---
Subjective Remarks Awakes to voice, oriented 2 Very weak Voice very soft appetite fair had soft brown stools minimal cough no sputum no fever Objective Objective Results - Vital Signs Date Time Temp Pulse Resp B/P (MAP) Pulse Ox O2 Delivery O2 Flow Rate FiO2 11/16/16 08:02 Nasal Cannula 2.00 11/16/16 08:00 98.1 73 18 128/60 (82) 96 11/16/16 04:00 98.6 80 16 118/74 (89) 97 11/16/16 00:00 98.1 72 18 110/57 (74) 96 11/15/16 20:30 74 11/15/16 20:30 95 Nasal Cannula 2.00 11/15/16 20:00 98.5 79 18 145/72 (96) 97 11/15/16 16:00 97.8 72 18 132/89 (103) 96 I/O 11/15/16 11/15/16 11/15/16 11/16/16 11/16/16 11/16/16 07:00 15:00 23:00 07:00 15:00 23:00 Intake Total 680 ml 820 ml 1240 ml Balance 680 ml 820 ml 1240 ml Intake Oral 480 ml 720 ml 240 ml IV Total 200 ml 100 ml 1000 ml # Voids 4 4 4 # Bowel Movements 3 3 0 Result Diagram: 11/16/16 0935 11/16/16 0935 Imaging Last Impressions Chest X-Ray 11/09/16 1019 Signed Impressions: Service Date/Time: Wednesday, November 09, 2016 10:21 - CONCLUSION: Elevated right diaphragm and mild streaky parenchymal opacity on the right of undetermined chronicity. Jose Love MD Other Results Laboratory Tests Test 11/16/16 09:35 White Blood Count 9.8 Red Blood Count 3.74 Hemoglobin 10.5 Hematocrit 31.7 Mean Corpuscular Volume 84.7 Mean Corpuscular Hemoglobin 28.0 Mean Corpuscular Hemoglobin Concent 33.1 Red Cell Distribution Width 12.2 Platelet Count 333 Mean Platelet Volume 10.1 Blood Urea Nitrogen 10 Creatinine 0.68 Random Glucose 119 Calcium Level 8.1 Magnesium Level 1.7 Sodium Level 139 Potassium Level 3.4 Chloride Level 110 Carbon Dioxide Level 18.8 Anion Gap 10 Estimat Glomerular Filtration Rate 84 Date/Time Source Procedure Growth Status 11/09/16 10:24 Blood Peripheral Aerobic Blood Culture - Final NO GROWTH IN 5 DAYS Complete 11/09/16 10:24 Blood Peripheral Anaerobic Blood Culture - Final NO GROWTH IN 5 DAYS Complete ROS General: Weakness, Other (12 point ROS limited ) Physical Exam Physical Exam GENERAL: This is a well-nourished, well-developed patient, in no apparent distress. SKIN: No rashes, ecchymoses or lesions. Cool and dry. HEAD: Atraumatic. Normocephalic. No temporal or scalp tenderness. EYES: Pupils equal round and reactive. Extraocular motions intact. No scleral icterus. No injection or drainage. ENT: Nose without bleeding, purulent drainage or septal hematoma. Throat without erythema, tonsillar hypertrophy or exudate. Uvula midline. Airway patent. NECK: Trachea midline. No JVD or lymphadenopathy. Supple, nontender, no meningeal signs. CARDIOVASCULAR: Regular rate and rhythm with soft murmurs, no gallops, no rubs. RESPIRATORY: Poor inspiratory effort, diminished at bases. Has a cough, nonproductive. GASTROINTESTINAL: Abdomen soft, non-tender, nondistended. No hepato-splenomegaly , or palpable masses. No guarding. MUSCULOSKELETAL: Extremities without clubbing, cyanosis, or edema. No joint tenderness, effusion, or edema noted. No calf tenderness. Negative Homans sign bilaterally. NEUROLOGICAL: Awakes to voice, oriented to place. Weak to upper extremities and lower extremities. Doesn't follow commands consistently. Doesn't appear to have any focal deficits. Urinary Catheter: No Vascular Central Line Catheter: No A/P Diagnosis: (1) Sepsis ICD Codes: A41.9 - Sepsis, unspecified organism Status: Acute (2) Pneumonia ICD Codes: J18.9 - Pneumonia, unspecified organism Status: Acute (3) Dementia ICD Codes: F03.90 - Unspecified dementia without behavioral disturbance Status: Chronic (4) Altered mental status ICD Codes: R41.82 - Altered mental status, unspecified Status: Acute (5) Depression ICD Codes: F32.9 - Major depressive disorder, single episode, unspecified Status: Chronic (6) GERD (gastroesophageal reflux disease) ICD Codes: K21.9 - Gastro-esophageal reflux disease without esophagitis Status: Chronic (7) CKD (chronic kidney disease) stage 3, GFR 30-59 ml/min ICD Codes: N18.3 - Chronic kidney disease, stage 3 (moderate) Status: Chronic Assessment and Plan 75-year-old female from a local [facility], presented with altered mental status and fever. Found with sepsis, with findings of lactic acidosis, fever, tachycardia, tachypnea and chest x-ray findings of probable pneumonia. Sepsis Pneumonia, possibly healthcare acquired -Cultures remain negative -Continue with diet per speech recommendation -Monitor for aspiration -Improving, WBC trending down, afebrile. -d/c abx Anorexia, poor by mouth intake -Nutrition is following -Continue with calorie -Encourage by mouth intake -Continue with ensure Dementia History of schizophrenia History of depression and anxiety -Continue Zoloft, risperidone -Appreciate psychiatric input, medications adjusted Hypertension -Continue lisinopril hydrochlorothiazide Chronic kidney disease stage III -Continue IV fluids -Renal function markedly improved -replace K Continue physical therapy Heparin 5000 units subcutaneous twice a day for DVT prophylaxis Appreciate palliative care input, patient does not want PEG tube. DNR status Overall stable, no fever, no leukocytosis Discharge to SNF today f/u PCP diet-heart healthy activity-as tolerated Discussed with her Discussed with patient Discussed with Dr. Agarwal This patient was seen by myself and Dr. Agarwal, this note is written his behalf Discharge Planning 45 Problem Qualifiers (1) Sepsis: Qualified Codes: A41.9 - Sepsis, unspecified organism (2) Pneumonia: Qualified Codes: J18.1 - Lobar pneumonia, unspecified organism (3) Dementia: Qualified Codes: F03.90 - Unspecified dementia without behavioral disturbance (4) Altered mental status: Qualified Codes: R40.4 - Transient alteration of awareness (5) Depression: Qualified Codes: F32.9 - Major depressive disorder, single episode, unspecified (6) GERD (gastroesophageal reflux disease): Qualified Codes: K21.9 - Gastro-esophageal reflux disease without esophagitis Angelika Duran Nov 16, 2016 12:03
[2016-11-16] MEDS ORDERED: TRAM50TA PO (12:08)
--- NOTE | 2016-11-16 12:09 | HHI.DCPOC ---
Discharge Care Plan Diagnosis: (1) Altered mental status (2) Sepsis Your Health Problems Are: Anxiety Difficulty with ADL Goals to Promote Your Health * To prevent worsening of your condition and complications * To maintain your health at the optimal level Directions to Meet Your Goals Take your medications as prescribed Follow your dietary instruction Follow activity as directed Keep your appointments as scheduled Take your immunizations and boosters as scheduled If your symptoms worsen call your PCP, if no PCP go to Urgent Care Center or Emergency Room Smoking is Dangerous to Your Health. Avoid second hand smoke Call the 24-hour hour crisis hotline for domestic abuse at Angelika Duran Nov 16, 2016 12:09
[2016-11-16] MEDS ORDERED: POTASSIUM CHLORIDE 25 MEQ EFFERVESCENT TAB PO ONE (12:30)
[2016-11-16 16:00] VITALS: BP 145/68; PULSE 70; RESP 20; TEMP 97; O2SAT 96
[2016-11-17] MEDS ORDERED: PHARMACY ORDERED LAB ONE (14:45)
--- NOTE | 2016-11-18 16:41 | HHI.DS ---
Discharge Summary Admission Date Nov 09, 2016 at 12:42 Discharge Date: Nov 16, 2016 Admitting Diagnosis Sepsis due to RLL PNA (1) Sepsis ICD Codes: A41.9 - Sepsis, unspecified organism Status: Acute (2) Pneumonia ICD Codes: J18.9 - Pneumonia, unspecified organism Status: Acute (3) Dementia ICD Codes: F03.90 - Unspecified dementia without behavioral disturbance Status: Chronic (4) Altered mental status ICD Codes: R41.82 - Altered mental status, unspecified Status: Acute (5) Depression ICD Codes: F32.9 - Major depressive disorder, single episode, unspecified Status: Chronic (6) GERD (gastroesophageal reflux disease) ICD Codes: K21.9 - Gastro-esophageal reflux disease without esophagitis Status: Chronic (7) CKD (chronic kidney disease) stage 3, GFR 30-59 ml/min ICD Codes: N18.3 - Chronic kidney disease, stage 3 (moderate) Status: Chronic Brief History This a 75-year-old female from a local longterm, significant past medical history dementia, schizophrenia, CK D stage III, anxiety, GERD, osteoarthritis. Presented fever EMS for change in mental status. She was found febrile, no documentation how high fever was. Patient unable to write information. In the emergency room, patient was evaluated. Laboratory workup was completed. CBC significant for leukocytosis, WBC 19.3. Urinalysis did not reveal any infection. BMP unremarkable other than chronic kidney disease which appears at baseline. Lactic acid was elevated 2.9. Chest x-ray with findings of elevated right diaphragm, mild streaky parenchymal opacity in the right of undetermined chronicity. Rectal temperature was 100.9, heart rate 88, respiratory rate 26, blood pressure 147/67, sats 92% on room air. Blood cultures were obtained, patient was given fluid resuscitation. Empiric antibiotics have been started. Patient awakes to voice, she no she is in the hospital but other than that she's not able to provide any details. She has a cough that is nonproductive. She is very weak, follows commands inconsistently. Medical records reviewed from facility, no advanced directives are available. Patient is admitted for further evaluation and treatment. CBC/BMP: 11/16/16 0935 11/16/16 0935 Significant Findings Laboratory Tests Test 11/16/16 09:35 Red Blood Count 3.74 MIL/MM3 (4.00-5.30) Hemoglobin 10.5 GM/DL (11.6-15.3) Hematocrit 31.7 % (35.0-46.0) Random Glucose 119 MG/DL (74-106) Calcium Level 8.1 MG/DL (8.5-10.1) Potassium Level 3.4 MEQ/L (3.5-5.1) Chloride Level 110 MEQ/L (98-107) Carbon Dioxide Level 18.8 MEQ/L (21.0-32.0) Estimat Glomerular Filtration Rate 84 ML/MIN (>89) Imaging Last Impressions Chest X-Ray 11/09/16 1019 Signed Impressions: Service Date/Time: Wednesday, November 09, 2016 10:21 - CONCLUSION: Elevated right diaphragm and mild streaky parenchymal opacity on the right of undetermined chronicity. Jose Love MD Hospital Course This a 75-year-old female from a local longterm, significant past medical history dementia, schizophrenia, CK D stage III, anxiety, GERD, osteoarthritis. Presented fever EMS for change in mental status. She was found febrile, no documentation how high fever was. Patient unable to provide information. In the emergency room, patient was evaluated. Laboratory workup was completed. CBC significant for leukocytosis, WBC 19.3. Urinalysis did not reveal any infection. BMP unremarkable other than chronic kidney disease which appears at baseline. Lactic acid was elevated 2.9. Chest x-ray with findings of elevated right diaphragm, mild streaky parenchymal opacity in the right of undetermined chronicity. Rectal temperature was 100.9, heart rate 88, respiratory rate 26, blood pressure 147/67, sats 92% on room air. Blood cultures were obtained, patient was given fluid resuscitation. Empiric antibiotics were started. Patient awoke to voice, she knew she was in the hospital but other than that she's not able to provide any details. She had a cough that is nonproductive. She was very weak, followed commands inconsistently. Medical records reviewed from facility, no advanced directives were available. Patient was admitted for further evaluation and treatment. During the course of the hospitalization, the following took place: 75-year-old female from a local longterm, presented with altered mental status and fever. Found with sepsis, with findings of lactic acidosis, fever, tachycardia, tachypnea and chest x-ray findings of probable pneumonia. Sepsis Pneumonia, possibly healthcare acquired -Put on IV fluids, empiric antibiotics were continued. -Cultures remained negative -Speech therapy was consulted. Pure diet recommended. -Improved, WBC trending down, afebrile. -Discontinued antibiotics after appropriate course given Anorexia, poor by mouth intake -Account Financial Manager was following -Put on calorie count -Encouraged by mouth intake -Put on Ensure -Patient did not want PEG tube Dementia History of schizophrenia History of depression and anxiety -Continued Zoloft, risperidone -Psych consulted to assess competency. -Appreciated psychiatric input, medications adjusted Hypertension -Continued lisinopril hydrochlorothiazide -Blood Pressure remained stable Chronic kidney disease stage III -Given IV fluids -Renal function markedly improved -replaced K PRN Physical therapy consulted to assist with mobility Was put on Heparin 5000 units subcutaneous twice a day for DVT prophylaxis Palliative care consulted to assist with goals of care. They worked with patient, patient did not want to do advanced directives. She agreed to a DNR while in the hospital. She did not want a PEG tube. Overall stable, no fever, no leukocytosis Discharged to SNF in stable condition Instructed to; f/u PCP diet-heart healthy activity-as tolerated Pt Condition on Discharge: Stable Discharge Disposition: Discharge to SNF Discharge Instructions DIET: Follow Instructions for: Heart Healthy Diet Speech Therapy-Diet Recommends: Pureed Additional Diet Instructions: HEAD OF BED UP ASPIRATION PRECAUTIONS Activities you can perform: Weight Bearing as Florecita Other Activity Instructions: FALL PRECAUTIONS Follow up Referrals: PCP Follow-up Continued Medications: Gemfibrozil (Gemfibrozil) 600 Mg Tab 600 MG PO BIDAC, #60 TAB 0 Refills Take 30 minutes prior to breakfast and dinner. Lisinopril-Hctz (Lisinopril-Hctz) 10-12.5 Mg Tab 1 TAB PO DAILY for Blood Pressure Management, #30 TAB 0 Refills Polyethylene Glycol 3350 Powder (Polyethylene Glycol 3350 Powder) 17 Gram Pow 17 GM PO DAILY for Constipation, #1 BOTTLE 0 Refills Risperidone (Risperidone) 0.5 Mg Tab 0.5 MG PO HS, #30 TAB 0 Refills Risperidone (Risperidone) 2 Mg Tab 2 MG PO HS, #30 TAB 0 Refills Sertraline (Zoloft) 100 Mg Tab 100 MG PO DAILY, #30 TAB 0 Refills Tramadol (Tramadol) 50 Mg Tab 50 MG PO TID for Pain for 7 Days, #21 TAB 0 Refills (This prescription has been renewed) Angelika Duran [facility] Nov 18, 2016 16:41
== END 2016-11-16 18:06 | DRG 871 ==
LOC: NEPE 09:49 → NEDA 12:42 → N04B 15:00
PROVIDERS: ADMIT Specialist; ATTEND Specialist
DX: A41.9 Sepsis, unspecified organism (principal); J18.1 Lobar pneumonia, unspecified organism; E87.2 Acidosis; N18.3 Chronic kidney disease, stage 3 (moderate); E86.0 Dehydration; F03.90 Unspecified dementia, unspecified severity, without behavioral disturbance, psychotic disturbance, mood disturbance, and anxiety; D63.8 Anemia in other chronic diseases classified elsewhere; E78.5 Hyperlipidemia, unspecified; I12.9 Hypertensive chronic kidney disease with stage 1 through stage 4 chronic kidney disease, or unspecified chronic kidney disease; E87.6 Hypokalemia; R00.0 Tachycardia, unspecified; G89.29 Other chronic pain; M54.9 Dorsalgia, unspecified; K21.9 Gastro-esophageal reflux disease without esophagitis; M06.9 Rheumatoid arthritis, unspecified; F25.9 Schizoaffective disorder, unspecified; F41.8 Other specified anxiety disorders; Z51.5 Encounter for palliative care; Z66 Do not resuscitate; Z82.49 Family history of ischemic heart disease and other diseases of the circulatory system; Z85.3 Personal history of malignant neoplasm of breast; Z90.13 Acquired absence of bilateral breasts and nipples; Z87.891 Personal history of nicotine dependence; Z99.3 Dependence on wheelchair; Z90.710 Acquired absence of both cervix and uterus
CPT/HCPCS: 71010; 80048; 80053; 80202; 81001; 83605; 83735; 84155; 85025; 85027; 87040; 93005; 96361; 96365; J0692; J1644; J3370; J3480; J7030; J7050

== ENCOUNTER 2017-08-01 19:14 | Inpatient (IN) | payer MEDICARE, OTHER ==
[~2017-08-01] VITALS: Ht 167.6 cm; Wt 92.0 kg
[2017-08-01 19:14] VITALS: O2SAT 88
[~2017-08-01 19:14] MED LIST changes: -BENZ1TAB PO; -E 101000 PO; -FOSA70TA PO; -GEMF600 PO; +GEMF600T PO; -LISI-585 PO; +LISI10TA PO; -LORA-392 PO; -MELO15 PO; -OSCA200T PO; -OXYB5TAB33 PO; +POLY17S PO; +RISP0.5T2 PO; +RISP2TAB2 PO; -RISP3TAB23 PO; -SERT100 PO; +TRAM50TA PO; +ZOLO100T PO
[2017-08-01 19:15] VITALS: O2SAT 96
[2017-08-01] MEDS ORDERED: SODIUM CHLOR 0.9% 1000 ML INJ 1,000 ML IV ONE ×6 (19:23→21:15)
[2017-08-01] MEDS ORDERED: SODIUM CHLORID 0.9% 500 ML INJ 500 ML IV ONE (19:30)
--- NOTE | 2017-08-01 19:36 | RADRPT ---
EXAM DATE: 08/01/2017 7:31 PM EDT AGE/SEX: 76 years / Female INDICATIONS: Stroke alert; Right sided flaccidness, left sided weakness. Right sided gaze CLINICAL DATA: This is the patient's initial encounter. Patient reports that signs and symptoms have been present for 1 day and indicates a pain score of Nonresponsive. MEDICAL/SURGICAL HISTORY: Non-responsive. Non-responsive. RADIATION DOSE: 62.19 CTDI (mGy) COMPARISON: No prior [place] exams available for comparison. This report was telephoned to Dr. Colon by Dr. Lee at 7:34 PM. TECHNIQUE: CT of the head without contrast. Using automated exposure control and adjustment of the mA and/or kV according to patient size, radiation dose was kept as low as reasonably achievable to ob tain optimal diagnostic quality images. FINDINGS: Cerebrum: There is moderate to severe generalized cerebral atrophy. Ventricles are normal given the degree of atrophy. There is periventricular white matter low attenuation. No midline shift, mass l esion, hemorrhage or acute infarction. No extraaxial fluid collections are seen. There is encephalom alacia in the left parietal high and mid convexity. There is severe calcification of the intracranial internal carotid arteries and vertebral arteries. Posterior Fossa: The cerebellum and brainstem demonstrate no acute abnormality. The 4th ventricle is midline. The cerebellopontine angle is within normal limits. Extracranial: The visualized sinuses are clear. Skull: The calvaria is intact. No skull fracture. CONCLUSION: 1. No acute intracranial abnormality is identified. 2. However, there is encephalomalacia in the left parietal region and there is generalized atrophy w ith severe periventricular white matter low-attenuation characteristic of chronic microvascular ische kaylee. Electronically signed by: Jose Lee MD 08/01/2017 7:35 PM EDT
[2017-08-01] MEDS ORDERED: SODIUM CHLOR 0.9% 250 ML INJ 250 ML IV ONE ×2 (19:45→20:45)
--- NOTE | 2017-08-01 19:48 | RADRPT ---
EXAM DATE: 08/01/2017 7:38 PM EDT AGE/SEX: 76 years / Female INDICATIONS: Rectal bleeding. CLINICAL DATA: This is the patient's initial encounter. Patient reports that signs and symptoms have been present for 1 day and indicates a pain score of Nonresponsive. MEDICAL/SURGICAL HISTORY: Non-responsive. Non-responsive. RADIATION DOSE: 10.96 CTDI (mGy) COMPARISON: No prior [place] exams available for comparison. TECHNIQUE: Multiple contiguous axial images were obtained through the abdomen. Images were obtained using multiple row detector helical technique. Using dose reduction techniques, radiation dose was ke pt as low as reasonably achievable to obtain optimal diagnostic quality images. FINDINGS: Lower chest: There are small bilateral pleural effusions, left larger than right with associated comp ressive atelectasis. Coronary artery calcification is present. Hepatobiliary: Liver density is within normal limits. No focal lesion is seen on this noncontrast exa mination. There are calcified stones in the gallbladder. There is no duct dilatation appreciated. Kidneys: No hydronephrosis, stone, or mass. Adrenal Glands: Within normal limits. Spleen: Within normal limits. Pancreas: There is a mild diffuse enlargement of the pancreas with peripancreatic edema and fluid. No ductal dilatation is appreciated. Vascular: The aorta is nonaneurysmal. There is severe atherosclerotic disease. Bowel/Mesentery: Stomach and small bowel demonstrate no acute finding. No signs of bowel obstruction are present. No acute colon abnormality is seen. However, the inferior rectum demonstrates circumfere ntial wall thickening. There is no free intraperitoneal air. There is trace free fluid in the abdomen and pelvis. Abdominal Wall: No hernia is visualized. Retroperitoneum: No lymphadenopathy. There is mild presacral edema. Bladder: No wall thickening or mass. Reproductive: Within normal limits. Inguinal: No lymphadenopathy or hernia. Musculoskeletal: No acute osseous abnormality is identified. There are degenerative changes of the mckinley mbar spine with compression fracture of L3 and increased density and height loss associated with T9. CONCLUSION: 1. The pancreas is abnormal with enlargement and peripancreatic inflammation and edema characteristi c of acute pancreatitis. There is a small volume of free fluid in the abdomen and pelvis. 2. Cholelithiasis without pancreatic duct dilatation. 3. There is mild wall thickening of the inferior rectum with associated presacral edema. 4. Small bilateral pleural effusions with associated compressive atelectasis. 5. There is a compression deformity of uncertain chronicity involving L3 and compression deformity w ith sclerosis involving T9. Electronically signed by: Jose Lee MD 08/01/2017 7:46 PM EDT
[2017-08-01 19:54] LABS: AUTOMATED NEUTROPHIL # 18.7 TH/MM3 (1.8-7.7); HEMATOCRIT 30.1 % (35.0-46.0); LYMPH % 4.9 % (9.0-44.0); MEAN CELL VOLUME 86.2 FL (80.0-100.0); MEAN CORPUSCULAR HEMOGLOBIN 28.5 PG (27.0-34.0); MEAN CORPUSCULAR HGB CONC 33.1 % (32.0-36.0); MEAN PLATELET VOLUME 9.7 FL (7.0-11.0); MONO % 5.4 % (0.0-8.0); MONOCYTE # 1.1 TH/MM3 (0-0.9); NEUT % 89.7 % (16.0-70.0); PLATELET COUNT 226 TH/MM3 (150-450); RED BLOOD COUNT 3.49 MIL/MM3 (4.00-5.30); RED CELL DISTRIBUTION WIDTH 13.6 % (11.6-17.2); WHITE BLOOD COUNT 20.9 TH/MM3 (4.0-11.0)
[2017-08-01] MEDS ORDERED: GLUCAGON 1 MG/ML VIAL OTHER PRN (20:00)
[2017-08-01] MEDS ORDERED: SODIUM CHLORIDE 0.9% FLUSH 10 ML FLUSH IV FLUSH PRN ×3 (20:00→21:15)
[2017-08-01] MEDS ORDERED: DEXTROSE 50% IN WATER 50 ML VIAL(D50) IV PUSH PRN (20:00)
[2017-08-01 20:04] VITALS: BP 91/47; PULSE 97; RESP 28; TEMP 100; O2SAT 100
[2017-08-01 20:08] LABS: INTERNATIONAL NORMALIZED RATIO 1.1 RATIO; PROTHROMBIN TIME - PATIENT 11.5 SEC (9.8-11.6)
[2017-08-01 20:14] LABS: TROPONIN I LESS THAN 0.02 NG/ML (0.02-0.05)
[2017-08-01] MEDS ORDERED: VANCOMYCIN INJ 1,000 MG in SODIUM CHLOR 0.9% 250 ML INJ 250 ML IV ONE (20:15)
[2017-08-01] MEDS ORDERED: ACETAMINOPHEN 650 MG SUPP RECTAL ONE (20:15)
[2017-08-01] MEDS ORDERED: CEFEPIME INJ 2,000 MG in SODIUM CHLORIDE 0.9% INJ 100 ML IV ONE (20:15)
[2017-08-01 20:30] VITALS: BP 106/53; PULSE 98; RESP 28; O2SAT 98
--- NOTE | 2017-08-01 20:30 | RADRPT ---
EXAM DATE: 08/01/2017 8:27 PM EDT AGE/SEX: 76 years / Female INDICATIONS: Short of breath and fever. CLINICAL DATA: This is the patient's initial encounter. Patient reports that signs and symptoms have been present for 1 day and indicates a pain score of Nonresponsive. MEDICAL/SURGICAL HISTORY: Non-responsive. Non-responsive. COMPARISON: [facility] [place], CHEST SINGLE AP, 11/09/2016. [facility] [place], [place] ABDOMEN & PELVIS W/O CONTRAST, 08/01/2017. . FINDINGS: Portable AP view of the chest demonstrate a normal-sized cardiac silhouette with calcification of the aorta. Lungs are underinflated with bibasilar pleural-parenchymal opacities. No pneumothorax is visu alized. The bones and soft tissues demonstrate no acute finding. CONCLUSION: Underinflated examination with small bilateral pleural effusions with compressive atelectasis at the lung bases. Electronically signed by: Jose Lee MD 08/01/2017 8:28 PM EDT
--- NOTE | 2017-08-01 20:37 | MB ---
cc: Patricio Michelle MD, PhD DATE: 08/01/2017 REASON FOR CONSULTATION: Stroke-alert. REFERRING DOCTOR: Dr. Colon HISTORY OF PRESENT ILLNESS: Ms. Sood is a 76-year-old female with baseline dementia, alf resident. The patient was noted earlier today to have a sudden onset of right gaze, as well as right-sided weakness. She was very hypotensive. Initial blood pressure 60/20, which responded to fluids and increased to 90/60. She is very pale as well. She presented to the hospital as a stroke-alert. PAST MEDICAL HISTORY: There is a history of dementia, schizophrenia, stage III kidney disease, GERD, osteoarthritis, depression, anxiety, compression fracture, right lumpectomy, hysterectomy. NEUROLOGIC: Her higher cortical function, she is alert. She does follow simple commands. She is somewhat dysarthric. Cranial nerves are intact. There is no gaze at this time. On motor exam, she is fairly weak in the right arm and right leg, although she is weak in general, but she is weaker on the right. Reflexes are 2+ symmetric. CT of the brain, no acute change present. There is encephalomalacia, left parietal area. Generalized atrophy, with severe ischemic demyelination, mainly chronic. No acute change identified. LABORATORY DATA: The white count 20,900, hemoglobin 10, hematocrit 30%, platelet count 226,000. Sodium is pending. The patient did have a bloody stool and guaiac positive stool consistent with GI bleed. IMPRESSION: Probable left hemisphere stroke. However, a focal seizure would also be in the differential with the encephalomalacia seen on CT. This may have also represented syncope due to profound hypotension. RECOMMENDATIONS: The patient is not a candidate for TPA given the bloody stool. She cannot have a CT angiogram because of her renal failure. Recommend to withhold any anticoagulants or antiplatelets at the present time because of the probable gastrointestinal bleed. We will obtain an EEG, as well as brain MRI without contrast, carotid ultrasound and echocardiogram for further evaluation. Agree with fluid boluses to try to increase her blood pressure. Patricio Michelle MD, PhD ALEXEI/MAKSIM , 07:58 PM , 08:37 PM
[2017-08-01] MEDS ORDERED: PANTOPRAZOLE INJ 80 MG in SODIUM CHLORIDE 0.9% INJ 100 ML IV SCH (20:39)
[2017-08-01] MEDS ORDERED: PANTOPRAZOLE INJ 80 MG in SODIUM CHLORIDE 0.9% INJ 35 ML IV ONE (20:39)
--- NOTE | 2017-08-01 20:44 | PD ---
HPI Chief Complaint: Stroke Alert Time Seen by Provider: 19:22 Travel History International Travel<30 days: No Contact w/Intl Traveler<30days: No Traveled to known affect area: No History of Present Illness HPI 76-year-old female presents to the emergency department by EMS transport from local senior living for evaluation of new-onset weakness with right word fix gaze and right upper extremity lower extremity weakness and flaccid. Upon EMS arrival patient was noted to have weakness to the right upper extremity decreased ability to converse but senior living staff reports patient has dementia and typically speaks in single word answers and responds to questions with single simple word answers. Patient was noted at the time to have a blood pressure of 60/40. Patient was given a 500 cc bolus of normal saline and blood pressure increased to 85 systolic. Patient's mentation improved as well. Patient attempted to squeeze with the right hand which she had not done before. Patient no longer had fixed rightward gaze. Stroke alert was called in the field prior to arrival to the patient presenting to the emergency department. Patient had last been reported as normal 1 hour prior to call from senior living for altered mentation and right-sided weakness. Patient is bedbound due to chronic lower extremity weakness right greater than left. Patient does not take any blood thinning agents. Patient reportedly recently started on Levaquin for infectious process but the medical staff at the nursing facility did not identify what infectious source was being managed. Upon patient's arrival patient was noted to be pale with midline gaze and tracking right to left based on questioning and answering simple questions with yes no patient was identified to have flaccid right upper extremity and right lower extremity with weakness to the left lower extremity and weak pulmonology technician strength to the left upper extremity. Blood pressure was 91 systolic on arrival. Stat call had been placed to neurology, Dr Michelle, prior to patient arriving to the emergency department. Patient was met by Dr. Michelle in the emergency department. FORMERLY [facility] Past Medical History Narrative Medical Depression dementia hypertension dyslipidemia breast cancer chronic lower extremity weakness previous CVA syncope schizophrenia hysterectomy bilateral mastectomy; no tobacco use; nursing notes reviewed Blood Disorders: No Depression: Yes Cancer: Yes Cardiovascular Problems: No Genitourinary: No Musculoskeletal: Yes (SYNCOPAL) Neurologic: No Psychiatric: Yes Reproductive: No Respiratory: No Schizophrenia: Yes Past Surgical History Cardiac Surgery: No Ear Surgery: No Endocrine Surgery: No Eye Surgery: No Genitourinary Surgery: Yes Gynecologic Surgery: Yes Hysterectomy: Yes Mastectomy: Yes (bilateral) Oral Surgery: No Thoracic Surgery: No Other Surgery: Yes Social History Alcohol Use: No Tobacco Use: No Substance Use: Yes Allergies-Medications (Allergen,Severity, Reaction): Coded Allergies: aspirin (Unverified Allergy, Severe, 10/16/16) PT HAS TINNITUS penicillin G (Unverified Allergy, Severe, 10/16/16) Reported Meds & Prescriptions Reported Meds & Active Scripts Active Tramadol (Tramadol HCl) 50 Mg Tab 50 Mg PO TID 7 Days Reported Gemfibrozil 600 Mg Tab 600 Mg PO BIDAC Take 30 minutes prior to breakfast and dinner. Zoloft (Sertraline HCl) 100 Mg Tab 100 Mg PO DAILY Risperidone 2 Mg Tab 2 Mg PO HS Risperidone 0.5 Mg Tab 0.5 Mg PO HS Polyethylene Glycol 3350 Powder (Polyethylene Glycol) 17 Gram Pow 17 Gm PO DAILY Lisinopril-Hctz 10-12.5 Mg Tab 1 Tab PO DAILY Narrative Medication Levaquin Review of Systems ROS Limitations: Clinical Condition, Poor Historian Except as stated in HPI: all other systems reviewed are Neg Physical Exam Narrative GENERAL: Well-developed elderly female in no acute respiratory distress with pallor decreased verbal response to questioning reportedly at her baseline; drowsiness awake follows commands slurred speech; GCS 15 SKIN: Warm and dry. HEAD: Atraumatic. Normocephalic. EYES: Pupils equal and round. No scleral icterus. No injection or drainage. Conjunctival pallor ENT: No nasal bleeding or discharge. Mucous membranes pink and moist. Airway is patent NECK: Trachea midline. No JVD. CARDIOVASCULAR: Regular rate and rhythm. RESPIRATORY: No accessory muscle use. Clear to auscultation. Breath sounds equal bilaterally. GASTROINTESTINAL: Abdomen soft, non-tender, nondistended. Hepatic and splenic margins not palpable. Rectal exam: Normal sphincter tone red bloody mucus on exam glove Hemoccult positive. MUSCULOSKELETAL: Extremities without clubbing, cyanosis, or edema. No obvious deformities. NEUROLOGICAL: Awake and alert. No obvious cranial nerve deficits. Motor grossly within normal limits. (L) 3/5 muscle strength in the arm and leg; (R) 1/ 5 arm/hand and flaccid leg. Slurred speech. PSYCHIATRIC: Appropriate mood and affect; insight and judgment normal. Data Data Last Documented VS Vital Signs Date Time Temp Pulse Resp B/P (MAP) Pulse Ox O2 Delivery O2 Flow Rate FiO2 08/01/17 20:30 98 28 106/53 (70) 98 Non-Rebreather 15.00 08/01/17 20:04 100.0 08/01/17 19:15 100 Orders Orders Diet Npo (08/02/17 Breakfast) Activity Bed Rest (08/01/17 ) Electrocardiogram (08/01/17 ) I-Stat Profile (08/01/17 19:23) Prothrombin Time / Inr (Pt) (08/01/17 19:23) Act Partial Throm Time (Ptt) (08/01/17 19:23) Complete Blood Count With Diff (08/01/17:) Fibrinogen (08/01/17:) Creatine Kinase (Cpk) (08/01/17 19:23) Troponin I (08/01/17 19:) Drug Screen, Random Urine (08/01/17:) Type And Screen (08/01/17 19:) Ct Brain W/O Iv Contrast(Rout) (08/01/17 ) Consult Neurology (08/01/17 ) Blood Glucose (08/01/17 19:23) Ecg Monitoring (08/01/17 19:23) Neuro Checks Q2HX12,Q4H (08/01/17 19:23) Nursing Bedside Swallow Assess .ONCE (08/01/17 19:23) Iv Access Insert/Monitor (08/01/17 19:23) NPO (08/01/17 19:23) Oximetry (08/01/17 19:23) Resp Oxygen Nc Stroke (08/01/17 ) Sodium Chlor 0.9% 1000 Ml Inj (Ns 1000 M (08/01/17 19:23) Cath For Specimen (08/01/17 19:23) Sodium Chlorid 0.9% 500 Ml Inj (Ns 500 M (08/01/17 19:30) Ct Abd/Pel W/O Iv Contrast (08/01/17 ) (Hub Use Only)Inp Phy Cons/Ref (08/01/17 ) Urinary Catheter Insert/Apply (08/01/17 19:32) Red Blood Cells (Rbc) (08/01/17 19:32) Blood Product Administration (08/01/17 19:32) Sodium Chlor 0.9% 250 Ml Inj (Ns 250 Ml (08/01/17 19:45) Sodium Chlor 0.9% 1000 Ml Inj (Ns 1000 M (08/01/17 19:45) Nih Stroke Scale - Nihss .On admission and discharge (08/01/17 19:58) Case Management Consult (08/01/17 ) Activity Bed Rest (08/01/17 19:58) Nursing Bedside Swallow Assess .ONCE (08/01/17 19:58) Scd Bilateral/Knee High MONICA.QSHIFT (08/01/17 19:58) Hemoglobin (Hgb) A1c (08/01/17 19:58) Us Carotid Arteries Comp Bilat (08/01/17 ) Mra Brain W/O Contrast (Cow) (08/01/17 ) Mri Brain W/O Contrast (08/01/17 ) Echo 2d Comp With Doppler (08/01/17 ) Resp Oxygen Nc Stroke (08/01/17 ) ^ Hold Medication (08/01/17 19:58) Sodium Chloride 0.9% Flush (Ns Flush) (08/01/17 21:00) Sodium Chloride 0.9% Flush (Ns Flush) (08/01/17 20:00) Bedside Glucose MONICA.CSUGAR (08/01/17 19:58) ^ Discontinue Insulin Orders (08/01/17 19:58) Insulin Aspart Supplemtl Scale (Novolog (08/01/17 21:00) Dextrose 50% In Owen (Vial) Inj (D50w (Vi (08/01/17 20:00) Glucagon Inj (Glucagon Inj) (08/01/17 20:00) Consult Rehab Medicine (08/01/17 19:58) Plastic Parts Designer / Telemetry MONICA.Q8H (08/01/17 19:58) Consult Stroke Navigator (08/01/17 ) Eeg Study (08/01/17 ) Vancomycin Inj (Vancomycin Inj) (08/01/17 20:15) Lipase (08/01/17 20:05) Chest, Single Ap (08/01/17 ) Arterial Blood Gas (Abg) (08/01/17 ) Hepatic Functional Panel (08/01/17 20:05) Urinalysis - C+S If Indicated (08/01/17 20:05) Cefepime Inj (Maxipime Inj) (08/01/17 20:15) Acetaminophen Supp (Tylenol Supp) (08/01/17 20:15) CKMB (08/01/17 19:20) CKMB% (08/01/17 19:20) (Hub Use Only)Inp Phy Cons/Ref (08/01/17 ) Sodium Chlor 0.9% 1000 Ml Inj (Ns 1000 M (08/01/17 20:45) Blood Product Administration (08/01/17 20:39) Sodium Chlor 0.9% 250 Ml Inj (Ns 250 Ml (08/01/17 20:45) Sodium Chloride 0.9... W/Pantoprazole In (08/01/17 20:39) Sodium Chloride 0.9... W/Pantoprazole In (08/01/17 20:39) Gemfibrozil (Lopid) (08/02/17 07:00) Risperidone (Risperdal) (08/01/17 22:00) Sertraline (Zoloft) (08/02/17 09:00) Risperidone (Risperdal) (08/01/17 22:00) Sodium Chlor 0.9% 1000 Ml Inj (Ns 1000 M (08/01/17 21:15) Admit To Inpatient (08/01/17 ) Code Status (08/01/17 21:09) Vital Signs (Adult) MONICA.Q1H (08/01/17 21:09) Activity Bed Rest (08/01/17 21:09) Elevate Head Of Bed (08/01/17 21:09) Neuro Checks . ORDERED (08/01/17 21:09) Intake + Output Q1H (08/01/17 21:09) Sodium Chlor 0.9% 1000 Ml Inj (Ns 1000 M (08/01/17 21:09) Sodium Chloride 0.9% Flush (Ns Flush) (08/01/17 21:15) Sodium Chloride 0.9% Flush (Ns Flush) (08/02/17 09:00) Acetaminophen (Tylenol) (08/01/17 21:15) Famotidine Inj (Pepcid Inj) (08/02/17 09:00) Ondansetron Inj (Zofran Inj) (08/01/17 21:15) Temazepam (Restoril) (08/01/17 21:15) Albuterol-Ipratropium Neb (Duoneb Neb) (08/01/17 21:15) Complete Blood Count With Diff (08/02/17 04:00) Comprehensive Metabolic Panel (08/02/17 04:00) Act Partial Throm Time (Ptt) (08/02/17 04:00) Prothrombin Time / Inr (Pt) (08/02/17 04:00) Magnesium (Mg) (08/02/17 04:00) Phosphorus (Po4) (08/02/17 04:00) Blood Culture (08/01/17 21:09) Sputum Culture And Gram Stain (08/01/17 21:09) Consult Gastroenterology (08/01/17 ) Plastic Parts Designer / Telemetry MONICA.Q8H (08/01/17 21:09) Enoxaparin Inj (Lovenox Inj) (08/01/17 22:00) Scd Bilateral/Knee High MONICA.BID (08/01/17 21:09) Ortega Bilateral/Knee High MONICA.QSHIFT (08/01/17 21:09) ^ Initiate Protocol (08/01/17 21:09) Instruction (08/01/17 21:09) Nursing Information ([facility] Nursing Inform (08/01/17 21:15) Chlorhexidine 2% Cloth (Chlorhexidine 2% (08/02/17 04:00) Chlorhexidine 2% Cloth (Chlorhexidine 2% (08/01/17 21:15) Mrsa Pcr Surveillance (08/01/17 21:09) Docusate Sodium-Senna (Guillermina-Colace) (08/02/17 09:00) Magnesium Hydroxide Liq (Milk Of Magnesi (08/01/17 21:15) Sennosides (Senokot) (08/01/17 21:15) Bisacodyl Supp (Dulcolax Supp) (08/01/17 21:15) Lactulose Liq (Lactulose Liq) (08/01/17 21:15) Admit To Inpatient (08/01/17 ) Vital Signs (Adult) CONTINUOUS (08/01/17 21:09) Neuro Checks . ORDERED (08/01/17 21:09) Plastic Parts Designer / Telemetry MONICA.Q8H (08/01/17 21:09) Intake + Output 06,14,22 (08/01/17 21:09) Lactic Acid Sepsis Protocol (08/01/17 21:09) Consult Pt Eval & Treat (08/01/17 21:09) Ot Request For Service (08/01/17 21:09) Vancomycin Consult Pharmacy (Vancomycin (08/01/17 21:15) Aztreonam Inj (Azactam Inj) (08/01/17 22:00) Metronidazole 500 Mg Inj (Flagyl 500 Mg (08/01/17 22:00) Sodium Chlor 0.9% 1000 Ml Inj (Ns 1000 M (08/01/17 21:09) Sodium Chlor 0.9% 1000 Ml Inj (Ns 1000 M (08/01/17 21:09) Sodium Chlor 0.9% 1000 Ml Inj (Ns 1000 M (08/01/17 21:09) Inpatient Certification (08/01/17 ) Hydromorphone Pf Inj (Dilaudid Pf Inj) (08/01/17 21:15) Labs Laboratory Tests Test 08/01/17 19:20 08/01/17 20:17 08/01/17 20:41 08/01/17 21:10 White Blood Count 20.9 TH/MM3 Red Blood Count 3.49 MIL/MM3 Hemoglobin 10.0 GM/DL Bedside Hemoglobin 9.5 G/DL Hematocrit 30.1 % Bedside Hematocrit 28.0 % Mean Corpuscular Volume 86.2 FL Mean Corpuscular Hemoglobin 28.5 PG Mean Corpuscular Hemoglobin Concent 33.1 % Red Cell Distribution Width 13.6 % Platelet Count 226 TH/MM3 Mean Platelet Volume 9.7 FL Neutrophils (%) (Auto) 89.7 % Lymphocytes (%) (Auto) 4.9 % Monocytes (%) (Auto) 5.4 % Eosinophils (%) (Auto) 0.0 % Basophils (%) (Auto) 0.0 % Neutrophils # (Auto) 18.7 TH/MM3 Lymphocytes # (Auto) 1.0 TH/MM3 Monocytes # (Auto) 1.1 TH/MM3 Eosinophils # (Auto) 0.0 TH/MM3 Basophils # (Auto) 0.0 TH/MM3 CBC Comment DIFF FINAL Differential Comment Prothrombin Time 11.5 SEC Prothromb Time International Ratio 1.1 RATIO Activated Partial Thromboplast Time 29.7 SEC Fibrinogen 602 mg/dL Bedside Sodium 135 MMOL/L Bedside Potassium 3.4 MMOL/L Bedside Chloride 101 MMOL/L Bedside Blood Urea Nitrogen 110 MG/DL Bedside Creatinine 6.5 MG/DL Bedside Glucose 112 MG/DL Total Bilirubin 0.9 MG/DL Direct Bilirubin 0.3 MG/DL Indirect Bilirubin 0.6 MG/DL Aspartate Amino Transf (AST/SGOT) 92 U/L Alanine Aminotransferase (ALT/SGPT) 350 U/L Alkaline Phosphatase 89 U/L Total Creatine Kinase 405 U/L Creatine Kinase MB 3.3 NG/ML Creatine Kinase MB % 0.8 % Troponin I LESS THAN 0.02 NG/ML Total Protein 6.6 GM/DL Albumin 2.4 GM/DL Lipase 1442 U/L Blood Gas Puncture Site LT RADIAL Blood Gas Patient Temperature 98.6 Blood Gas HCO3 14 mmol/L Blood Gas Base Excess -12.1 mmol/L Blood Gas Oxygen Saturation 97 % Arterial Blood pH 7.27 Arterial Blood Partial Pressure CO2 31 mmHg Arterial Blood Partial Pressure O2 189 mmHG Arterial Blood Oxygen Content 12.3 Vol % Arterial Blood Carboxyhemoglobin 1.5 % Arterial Blood Methemoglobin 0.7 % Blood Gas Hemoglobin 8.7 G/DL Oxygen Delivery Device Non-Rebreathing Mask Blood Gas Liter Flow 15 L/M Blood Gas Inspired Oxygen 100 % Urine Color DARK-BROWN Urine Turbidity CLOUDY Urine pH 5.0 Urine Specific [place] 1.022 Urine Protein 100 mg/dL Urine Glucose (UA) TRACE mg/dL Urine Ketones NEG mg/dL Urine Occult Blood LARGE Urine Nitrite NEG Urine Bilirubin NEG Urine Urobilinogen LESS THAN 2.0 MG/DL Urine Leukocyte Esterase LARGE Urine RBC 121 /hpf Urine WBC 50 /hpf Urine Squamous Epithelial Cells 2 /hpf Urine Amorphous Sediment RARE Urine Bacteria FEW /hpf Urine Mucus FEW /lpf Microscopic Urinalysis Comment CATH-CULTURE IND Test 08/01/17 21:15 Urine Opiates Screen NEG Urine Barbiturates Screen NEG Urine Amphetamines Screen NEG Urine Benzodiazepines Screen NEG Urine Cocaine Screen NEG Urine Cannabinoids Screen NEG [facility] Medical Decision Making Medical Screen Exam Complete: Yes Emergency Medical Condition: Yes Medical Record Reviewed: Yes Interpretation(s) EKG sinus rhythm rate 97 left axis deviation nonspecific ST-T changes no acute ST elevation right ventricular conduction delay Renal function remarkable for acute renal failure BUN 110 creatinine 6.5 CTA imaging studies not performed Lipase elevated at 1442 Urinalysis cath specimen 50 white blood cells Last Impressions Head Magnetic Resonance Angiography 08/01/17 Signed Impressions: CONCLUSION: 1. Negative MRA Cow ([place]) non contrast. Head CT 08/01/17 Signed Impressions: CONCLUSION: 1. No acute intracranial abnormality is identified. 2. However, there is encephalomalacia in the left parietal region and there is generalized atrophy with severe periventricular white matter low-attenuation c haracteristic of chronic microvascular ischemia. Chest X-Ray 08/01/17 Signed Impressions: CONCLUSION: Underinflated examination with small bilateral pleural effusions with compressi ve atelectasis at the lung bases. Carotid Artery Ultrasound 08/01/17 Signed Impressions: CONCLUSION: 1. Right Internal Carotid Artery: Findings indicate <50% stenosis. 2. Left Internal Carotid Artery: Findings indicate <50% stenosis. Brain MRI 08/01/17 Signed Impressions: CONCLUSION: 1. Questionable tiny subacute lacunar infarcts posterior periventricular white matter. Moderate to severe chronic ischemic changes in the periventricular whi te matter. Remote left parietal lobe infarct. Abdomen/Pelvis CT 08/01/17 Signed Impressions: CONCLUSION: 1. The pancreas is abnormal with enlargement and peripancreatic inflammation a nd edema characteristic of acute pancreatitis. There is a small volume of free fluid in the abdomen and pelvis. 2. Cholelithiasis without pancreatic duct dilatation. 3. There is mild wall thickening of the inferior rectum with associated presac ral edema. 4. Small bilateral pleural effusions with associated compressive atelectasis. 5. There is a compression deformity of uncertain chronicity involving L3 and c ompression deformity with sclerosis involving T9. CBC & BMP Diagram 08/01/17 19:20 Vital Signs Date Time Temp Pulse Resp B/P (MAP) Pulse Ox O2 Delivery O2 Flow Rate FiO2 08/01/17 20:30 98 28 106/53 (70) 98 Non-Rebreather 15.00 08/01/17 20:04 100.0 97 28 91/47 (62) 100 Non-Rebreather 08/01/17 19:45 97 96 Non-Rebreather 15.00 08/01/17 19:15 96 15.00 100 08/01/17 19:15 96 Non-Rebreather 15.00 100 08/01/17 19:14 88 Differential Diagnosis CVA/stroke alert, TIA, anemia, GI bleed, sepsis, septic shock, acute renal failure, UTI, pancreatitis, gastritis, ACS, [place], metabolic acidosis, anemia Narrative Course Patient placed on ED stretcher cardiac nurse and pulse oximetry applied; neurologist notified stroke alert called prior to patient arrival CT imaging studies ordered Patient given bolus of normal saline for hypotension type and screen obtained rectal exam performed and was positive for bloody mucus on exam glove Patient presents with tachycardia hypotension altered mental status rectal bleeding; blood cultures obtained identified patient recently placed on Levaquin Patient given cefepime and vancomycin I-STAT resulted with BUN of 110 and creatinine of 6.5 CTA of brain and neck canceled CT abdomen and pelvis added due to rectal bleeding noncontrast Neurologist aware of BUN and creatinine results as well CT brain noncontrast and rectal exam patient is not a TPA candidate recommend patient remain with head of bed flat Patient identified to have abnormal CT abdomen pelvis consistent with pancreatitis and perirectal edema for unclear etiology possible proctitis focal colitis with rectal bleeding and mucoid stool; lipase level 1442 Patient's case discussed with special agent secret service for admission Critical Care Narrative Aggregate critical care time was 35 minutes. Time to perform other separately billable procedures was not included in the critical care time. My time did not include minutes spent treating any other patients simultaneously or on activities that did not directly contribute to the patient's treatment. The services I provided to this patient were to treat and/or prevent clinically significant deterioration that could result in: Septic shock hemorrhagic shock I provided critical care services requiring my management, as noted below: Chart data review, documentation time, medication orders and management, vital sign assessments/reviewing monitor data, ordering and reviewing lab tests, ordering and interpreting/reviewing x-rays and diagnostic studies, care of the patient and discussion of the patient with the admitting physicians. [facility] Point of Care Internal Pos. & Neg. Controls: Passed Fecal Specimen Occult Blood: Positive Sepsis Criteria SIRS Criteria (2 or more): Heart rate over 90, WBC > 67986, < 4000 or > 10% bands Sepsis Criteria (SIRS+source): Infect source susp/known Physician Communication Physician Communication call placed to special agent secret service; call placed to neurologist --- no tpa Diagnosis Primary Impression: Altered mental status Additional Impressions: Sepsis Metabolic acidosis Acute renal failure GI bleed Admitting Information Admitting Physician Requests: Admit Marcie Colon MD August 01, 2017 20:44
[2017-08-01] MEDS: INSULIN ASPART SUPPLEMENTAL SCALE SQ SCH (21:00)
[2017-08-01] MEDS ORDERED: SODIUM CHLORIDE 0.9% FLUSH 10 ML FLUSH IV FLUSH SCH (21:00)
[2017-08-01] MEDS ORDERED: SODIUM CHLOR 0.9% 1000 ML INJ 1,000 ML IV SCH (21:09)
[2017-08-01] MEDS ORDERED: SODIUM CHLOR 0.9% 1000 ML INJ 100 ML IV ONE (21:09)
[2017-08-01] MEDS ORDERED: HYDROmorphone HCL PF 2 MG/ML VIAL IV PUSH PRN (21:15)
[2017-08-01] MEDS ORDERED: ONDANSETRON HCL 4 MG/2 ML VIAL IV PUSH PRN (21:15)
[2017-08-01] MEDS ORDERED: VANCOMYCIN INJ 1,000 MG in SODIUM CHLOR 0.9% 250 ML INJ 250 ML IV SCH (21:15)
[2017-08-01] MEDS ORDERED: CHLORHEXIDINE GLUCONATE 2 % 1 PACK (2 CLOTHS) TOP PRN (21:15)
[2017-08-01] MEDS ORDERED: NURSING INFORMATION XX SCH (21:15)
[2017-08-01] MEDS ORDERED: Vancomycin Consult Pharmacy 1 EA OTHER SCH (21:15)
[2017-08-01] MEDS ORDERED: TEMAZEPAM 15 MG CAP PO PRN (21:15)
[2017-08-01] MEDS ORDERED: LACTULOSE SYRUP 20 GM/30 ML CUP PO PRN (21:15)
[2017-08-01] MEDS ORDERED: SENNOSIDES 8.6 MG TAB PO PRN (21:15)
[2017-08-01] MEDS ORDERED: RESP: ALBUTEROL 2.5 MG/IPRATROPIUM 0.5 MG NEB (PRN) INH (21:15)
[2017-08-01] MEDS ORDERED: BISACODYL 10 MG SUPP RECTAL PRN (21:15)
[2017-08-01] MEDS ORDERED: MAGNESIUM HYDROXIDE SUSP 30 ML CUP PO PRN (21:15)
--- NOTE | 2017-08-01 21:17 | HHI.HP ---
HPI Service Critical Care Medicine Primary Care Physician Unknown Admission Diagnosis Diagnosis: Travel History International Travel<30 Days: No Contact w/Intl Traveler <30 Da: No Traveled to Known Affected Are: No History of Present Illness 76-year-old pleasantly demented female, long term resident. The patient was noted earlier today to have a sudden onset of right gaze, as well as right- sided weakness. She was also found to be very hypotensive. Initial blood pressure 60/20, which responded to fluids and increased to 90/60. She presented to the hospital as a stroke-alert. The MRI of brain obtained in the emergency department showed only questionable tiny subacute lacunar infarcts posterior periventricular white matter. Moderate to severe chronic ischemic changes in the periventricular white matter. Remote left parietal lobe infarct. The CT of the abdomen and pelvis however shows the abnormal pancreas with enlargement and peripancreatic inflammation and edema characteristic of acute pancreatitis. Cholelithiasis without pancreatic duct dilatation. Review of Systems ROS Unable to obtain Past Family Social History Allergies: Coded Allergies: aspirin (Unverified Allergy, Severe, 10/16/16) PT HAS TINNITUS penicillin G (Unverified Allergy, Severe, 10/16/16) Past Medical History Chronic kidney disease stage III Dementia Depression Schizophrenia Anxiety GERD Osteoarthritis Compression fracture Past Surgical History Right lumpectomy Hysterectomy Reported Medications Reported Meds & Active Scripts Active Tramadol (Tramadol HCl) 50 Mg Tab 50 Mg PO TID 7 Days Reported Gemfibrozil 600 Mg Tab 600 Mg PO BIDAC Take 30 minutes prior to breakfast and dinner. Zoloft (Sertraline HCl) 100 Mg Tab 100 Mg PO DAILY Risperidone 2 Mg Tab 2 Mg PO HS Risperidone 0.5 Mg Tab 0.5 Mg PO HS Polyethylene Glycol 3350 Powder (Polyethylene Glycol) 17 Gram Pow 17 Gm PO DAILY Lisinopril-Hctz 10-12.5 Mg Tab 1 Tab PO DAILY Active Ordered Medications Current Medications Medications (Trade) Dose Ordered Sig/Nadia Route PRN Reason Start Time Stop Time Status Last Admin Dose Admin Insulin Aspart (NovoLOG SUPPLEMENTAL SCALE) 1 ACHS SQ 08/01/17 21:00 Dextrose (D50w (Vial) Inj) 50 ml UNSCH PRN IV PUSH HYPOGLYCEMIA-SEE COMMENTS 08/01/17 20:00 Glucagon (Glucagon Inj) 1 mg UNSCH PRN OTHER HYPOGLYCEMIA-SEE COMMENTS 08/01/17 20:00 Sodium Chloride 250 ml @ 15 mls/hr ONCE ONCE IV 08/01/17 20:45 08/02/17 13:24 Gemfibrozil (Lopid) 600 mg BIDAC PO 08/02/17 07:00 Risperidone (risperDAL) 0.5 mg HS PO 08/01/17 22:00 Sertraline HCl (Zoloft) 100 mg DAILY PO 08/02/17 09:00 Risperidone (risperDAL) 2 mg HS PO 08/01/17 22:00 Sodium Chloride (NS Flush) 2 ml UNSCH PRN IV FLUSH FLUSH AFTER USING IV ACCESS 08/01/17 21:15 Sodium Chloride (NS Flush) 2 ml BID IV FLUSH 08/02/17 09:00 Acetaminophen (Tylenol) 650 mg Q6H PRN PO PAIN 1-5 AND/OR FEVER >101F 08/01/17 21:15 Hydromorphone HCl (Dilaudid Pf Inj) 1 mg Q4H PRN IV PUSH PAIN SCALE 6 TO 10 08/01/17 21:15 Famotidine (Pepcid Inj) 20 mg Q12HR IV PUSH 08/02/17 09:00 Ondansetron HCl (Zofran Inj) 4 mg Q6H PRN IV PUSH NAUSEA OR VOMITING 08/01/17 21:15 Temazepam (Restoril) 15 mg HS PRN PO INSOMNIA 08/01/17 21:15 Albuterol/ Ipratropium (Duoneb Neb) 1 ampule Q2HR NEB PRN INH WHEEZING 08/01/17 21:15 Enoxaparin Sodium (Lovenox Inj) 40 mg Q24H SQ 08/01/17 22:00 Miscellaneous Information ([facility] [facility] 1 Q361D XX 08/01/17 21:15 Chlorhexidine Gluconate (Chlorhexidine 2% Cloth) 3 pack Taper DAILY@04 TOP 08/02/17 04:00 07/29/18 03:59 Chlorhexidine Gluconate (Chlorhexidine 2% Cloth) 3 pack UNSCH PRN TOP HYGIENIC CARE 08/01/17 21:15 Senna/Docusate Sodium (Guillermina-Colace) 1 tab BID PO 08/02/17 09:00 Magnesium Hydroxide (Milk Of Magnesia Liq) 30 ml Q12H PRN PO Mild constipation 08/01/17 21:15 Sennosides (Senokot) 17.2 mg Q12H PRN PO Moderate constipation 08/01/17 21:15 Bisacodyl (Dulcolax Supp) 10 mg DAILY PRN RECTAL SEVERE CONSITIPATION 08/01/17 21:15 Lactulose (Lactulose Liq) 30 ml DAILY PRN PO SEVERE CONSITIPATION 08/01/17 21:15 Pharmacy Profile Note 0 ml @ 0 mls/hr UNSCH OTHER 08/01/17 21:15 Aztreonam 2000 mg/ Sodium Chloride 100 ml @ 200 mls/hr Q8H IV 08/01/17 22:00 Metronidazole 100 ml @ 100 mls/hr Q8H IV 08/01/17 22:00 Sodium Bicarbonate 150 meq/Dextrose 1,150 ml @ 125 mls/hr Q9H12M IV 08/01/17 23:00 Family History Unable to obtain Social History Patient resides at a long term, no documented tobacco abuse, no alcohol abuse , no illegal drug use. Physical Exam Vital Signs Vital Signs Date Time Temp Pulse Resp B/P (MAP) Pulse Ox O2 Delivery O2 Flow Rate FiO2 08/01/17 20:30 98 28 106/53 (70) 98 Non-Rebreather 15.00 08/01/17 20:04 100.0 97 28 91/47 (62) 100 Non-Rebreather 08/01/17 19:45 97 96 Non-Rebreather 15.00 08/01/17 19:14 88 Physical Exam GENERAL: This is a well-nourished, well-developed patient, in moderate respiratory distress. SKIN: No rashes, ecchymoses or lesions. Cool and dry. HEAD: Atraumatic. Normocephalic. No temporal or scalp tenderness. EYES: Pupils equal round and reactive. Extraocular motions intact. No scleral icterus. No injection or drainage. ENT: Nose without bleeding, purulent drainage or septal hematoma. Throat without erythema, tonsillar hypertrophy or exudate. Uvula midline. Airway patent. NECK: Trachea midline. No JVD or lymphadenopathy. Supple, nontender, no meningeal signs. CARDIOVASCULAR: Regular rate and rhythm with soft murmurs, no gallops, no rubs. RESPIRATORY: Poor inspiratory effort, diminished at bases. Has a cough, nonproductive. GASTROINTESTINAL: Abdomen soft, non-tender, nondistended. No hepato-splenomegaly , or palpable masses. No guarding. MUSCULOSKELETAL: Extremities without clubbing, cyanosis, or edema. No joint tenderness, effusion, or edema noted. No calf tenderness. Negative Homans sign bilaterally. NEUROLOGICAL: Awakes to voice. Weak to upper extremities and lower extremities. Doesn't follow commands consistently. Doesn't appear to have any focal deficits. Laboratory Laboratory Tests Test 08/01/17 19:20 08/01/17 20:17 08/01/17 20:41 White Blood Count 20.9 Red Blood Count 3.49 Hemoglobin 10.0 Bedside Hemoglobin 9.5 Hematocrit 30.1 Bedside Hematocrit 28.0 Mean Corpuscular Volume 86.2 Mean Corpuscular Hemoglobin 28.5 Mean Corpuscular Hemoglobin Concent 33.1 Red Cell Distribution Width 13.6 Platelet Count 226 Mean Platelet Volume 9.7 Neutrophils (%) (Auto) 89.7 Lymphocytes (%) (Auto) 4.9 Monocytes (%) (Auto) 5.4 Eosinophils (%) (Auto) 0.0 Basophils (%) (Auto) 0.0 Neutrophils # (Auto) 18.7 Lymphocytes # (Auto) 1.0 Monocytes # (Auto) 1.1 Eosinophils # (Auto) 0.0 Basophils # (Auto) 0.0 CBC Comment DIFF FINAL Differential Comment Prothrombin Time 11.5 Prothromb Time International Ratio 1.1 Activated Partial Thromboplast Time 29.7 Fibrinogen 602 Bedside Sodium 135 Bedside Potassium 3.4 Bedside Chloride 101 Bedside Blood Urea Nitrogen 110 Bedside Creatinine 6.5 Bedside Glucose 112 Total Creatine Kinase 405 Creatine Kinase MB 3.3 Creatine Kinase MB % 0.8 Troponin I LESS THAN 0.02 Blood Gas Puncture Site LT RADIAL Blood Gas Patient Temperature 98.6 Blood Gas HCO3 14 Blood Gas Base Excess -12.1 Blood Gas Oxygen Saturation 97 Arterial Blood pH 7.27 Arterial Blood Partial Pressure CO2 31 Arterial Blood Partial Pressure O2 189 Arterial Blood Oxygen Content 12.3 Arterial Blood Carboxyhemoglobin 1.5 Arterial Blood Methemoglobin 0.7 Blood Gas Hemoglobin 8.7 Oxygen Delivery Device Non-Rebreathing Mask Blood Gas Liter Flow 15 Blood Gas Inspired Oxygen 100 Result Diagram: 08/01/17 1920 Imaging Last [address] 08/01/17 0000 Signed Impressions: CONCLUSION: 1. No acute intracranial abnormality is identified. 2. However, there is encephalomalacia in the left parietal region and there is generalized atrophy with severe periventricular white matter low-attenuation c haracteristic of chronic microvascular ischemia. Chest X-Ray 08/01/17 Signed Impressions: CONCLUSION: Underinflated examination with small bilateral pleural effusions with compressi ve atelectasis at the lung bases. Carotid Artery Ultrasound 08/01/17 Signed Impressions: CONCLUSION: 1. Right Internal Carotid Artery: Findings indicate <50% stenosis. 2. Left Internal Carotid Artery: Findings indicate <50% stenosis. Abdomen/Pelvis CT 08/01/17 Signed Impressions: CONCLUSION: 1. The pancreas is abnormal with enlargement and peripancreatic inflammation a nd edema characteristic of acute pancreatitis. There is a small volume of free fluid in the abdomen and pelvis. 2. Cholelithiasis without pancreatic duct dilatation. 3. There is mild wall thickening of the inferior rectum with associated presac ral edema. 4. Small bilateral pleural effusions with associated compressive atelectasis. 5. There is a compression deformity of uncertain chronicity involving L3 and c ompression deformity with sclerosis involving T9. Septic Shock Reassessment Septic shock perfusion: reassessment completed Caprini VTE Risk Assessment Caprini VTE Risk Assessment: Mod/High Risk (score >= 2) Caprini Risk Assessment Model Point Value = 1 Point Value = 2 Point Value = 3 Point Value = 5 Age 41-60 Minor surgery BMI > 25 kg/m2 Swollen legs Varicose veins or History of unexplained or recurrent spontaneous Oral contraceptives or hormone replacement Sepsis (< 1 month) Serious lung disease, including pneumonia (< 1 month) Abnormal pulmonary function Acute myocardial infarction Congestive heart failure (< 1 month) History of inflammatory bowel disease Medical patient at bed rest Age 61-74 Arthroscopic surgery Major open surgery (> 45 min) Laparoscopic surgery (> 45 min) Malignancy Confined to bed (> 72 hours) Immobilizing plaster cast Central venous access Age >= 75 History of VTE Family history of VTE Factor V Leiden Prothrombin [id number] Lupus anticoagulant Anticardiolipin antibodies Elevated serum homocysteine Heparin-induced thrombocytopenia Other congenital or acquired thrombophilia Stroke (< 1 month) Elective arthroplasty Hip, pelvis, or leg fracture Acute spinal cord injury (< 1 month) Prophylaxis Regimen Total Risk Factor Score Risk Level Prophylaxis Regimen 0-1 Low Early ambulation 2 Moderate Order ONE of the following: *Sequential Compression Device (SCD) *Heparin 5000 units SQ BID 3-4 Higher Order ONE of the following medications: *Heparin 5000 units SQ TID *Enoxaparin/Lovenox 40 mg SQ daily (WT < 150 kg, CrCl > 30 mL/min) *Enoxaparin/Lovenox 30 mg SQ daily (WT < 150 kg, CrCl > 10-29 mL/min) *Enoxaparin/Lovenox 30 mg SQ BID (WT < 150 kg, CrCl > 30 mL/min) AND/OR *Sequential Compression Device (SCD) 5 or more Highest Order ONE of the following medications: *Heparin 5000 units SQ TID (Preferred with Epidurals) *Enoxaparin/Lovenox 40 mg SQ daily (WT < 150 kg, CrCl > 30 mL/min) *Enoxaparin/Lovenox 30 mg SQ daily (WT < 150 kg, CrCl > 10-29 mL/min) *Enoxaparin/Lovenox 30 mg SQ BID (WT < 150 kg, CrCl > 30 mL/min) AND *Sequential Compression Device (SCD) Assessment and Plan Assessment and Plan Sepsis -Acute pancreatitis -Broad-spectrum antibiotic -Aggressive IV fluid hydration -Follow-up cultures and de-escalate per sensitivity -GI consultation GI bleed -Patient had a bright red blood per rectum in the emergency department -Also rectal wall thickening on the CT -Protonix IV twice daily -Further per gastroenterology Small lacunar stroke -Questionable per MRI -Patient is followed by neurology -Not a candidate for TPA also due to acute GI bleed Anemia -Due to above -Monitor H&H -Transfuse for hemoglobin less than 7 Schizophrenia -Risperidone Depression -Zoloft Dyslipidemia -Gemfibrozil DVT GI prophylaxis -Tests SCDs -Hold pharmacological DVT prophylaxis due to acute GI bleed -Protonix IV twice daily Critical Care: The total critical care time was 35 minutes. Time to perform other separately billable procedures was not included in the critical care time. Los Covarrubias MD August 01, 2017 9:17 pm
[2017-08-01 21:43] LABS: AMORPHOUS SEDIMENT, URINE RARE; BACTERIA, URINE FEW /hpf; BILIRUBIN, URINE NEG (NEG); BLOOD, URINE LARGE (NEG); GLUCOSE,URINE TRACE mg/dL (NEG); KETONE, URINE NEG (NEG); MUCUS URINE FEW /lpf (OCC); NITRITE,URINE NEG (NEG); SQUAMOUS EPITHELIAL CELL URINE 2 /hpf (0-5); URINE COLOR DARK-BROWN (YELLW/STRAW); URINE LEUKOCYTE ESTERASE LARGE (NEG)
[2017-08-01] MEDS ORDERED: risperiDONE 1 MG TAB PO SCH (22:00)
[2017-08-01] MEDS: AZTREONAM INJ 2,000 MG in SODIUM CHLORIDE 0.9% INJ 100 ML IV SCH (22:00)
[2017-08-01] MEDS: metroNIDAZOLE 500 MG INJ 100 ML IV SCH (22:00)
[2017-08-01] MEDS ORDERED: ENOXAPARIN SODIUM 40 MG/0.4 ML SYRINGE SQ SCH (22:00)
[2017-08-01] MEDS: risperiDONE 0.5 MG TAB PO SCH (22:00)
--- NOTE | 2017-08-01 22:29 | RADRPT ---
EXAM DATE: 08/01/2017 10:25 PM EDT AGE/SEX: 76 years / Female INDICATIONS: CVA. CLINICAL DATA: This is the patient's initial encounter. Patient reports that signs and symptoms have been present for 1 day and indicates a pain score of Nonresponsive. MEDICAL/SURGICAL HISTORY: . Cancer. Depression. Schizophrenia. Mastectomy, bilateral. Hystere ctomy. COMPARISON: No prior [facility] exams available for comparison. No external comparison. VELOCITY PARAMETERS: ICA/CCA Ratio: Right 1.7 , Left 1.1 ICA: Right 123 cm/sec, Left 105 cm/sec CCA: Right 73 cm/sec, Left 99 cm/sec ECA: Right 85 cm/sec, Left 105 cm/sec Vertebral: Right 63 cm/sec antegrade, Left 77 cm/sec antegrade FINDINGS: Right Carotid: No significant stenosis is visualized. The waveforms are within normal limits. There is mild calcified plaque in the carotid bulb. Left Carotid: No significant stenosis is visualized. The waveforms are within normal limits. There is mild calcified and noncalcified plaque within the common carotid artery and carotid bulb. Other: None. CONCLUSION: 1. Right Internal Carotid Artery: Findings indicate <50% stenosis. 2. Left Internal Carotid Artery: Findings indicate <50% stenosis. Electronically signed by: Jose Lee MD 08/01/2017 10:28 PM EDT
[2017-08-01 23:27] VITALS: BP 93/52; PULSE 95; RESP 20; TEMP 98.5; O2SAT 100
--- NOTE | 2017-08-01 23:48 | RADRPT ---
EXAM DATE: 08/01/2017 11:34 PM EDT AGE/SEX: 76 years / Female INDICATIONS: CVA. CLINICAL DATA: This is the patient's initial encounter. Patient reports that signs and symptoms have been present for 1 day and indicates a pain score of Nonresponsive. MEDICAL/SURGICAL HISTORY: Non-responsive. Non-responsive. COMPARISON: No prior exams available for comparison. TECHNIQUE: Multiplanar, multisequence examination of the brain was performed without contrast. FINDINGS: There is a previous infarct in the medial left parietal lobe. There is severe chronic white matter is chemic disease. There is some faintly increased activity in the posterior periventricular white matte r may represent subacute tiny lacunar infarcts. No mass effect or shift. No hydrocephalus. No abnorma l extra-axial fluid. CONCLUSION: 1. Questionable tiny subacute lacunar infarcts posterior periventricular white matter. Moderate to s evere chronic ischemic changes in the periventricular white matter. Remote left parietal lobe infarct . Electronically signed by: Collin Ayala MD 08/01/2017 11:46 PM EDT
[2017-08-02] VITALS (15 sets, daily range): BP systolic 102–123; BP diastolic 36–65; PULSE 81–99; RESP 19–34; TEMP 97.5–98.4; O2SAT 95–100
--- NOTE | 2017-08-02 00:14 | RADRPT ---
EXAM DATE: 08/01/2017 11:32 PM EDT AGE/SEX: 76 years / Female INDICATIONS: CVA. CLINICAL DATA: This is the patient's initial encounter. Patient reports that signs and symptoms have been present for 1 day and indicates a pain score of Nonresponsive. MEDICAL/SURGICAL HISTORY: Non-responsive. Non-responsive. COMPARISON: No prior exams available for comparison. TECHNIQUE: 3D [id number] MRA was performed. Source images, multiplanar STS MIP, and 3D volum e MIP reconstructions were reviewed. FINDINGS: There is excellent visualization of the major intracranial arteries out to the second-order branch ve ssels. There is no evidence for aneurysm, vessel truncation or stenosis, and no evidence for vascula r malformation. CONCLUSION: 1. Negative MRA [place] ([place] [facility] [place]) non contrast. Electronically signed by: Collin Ayala MD 08/02/2017 12:13 AM EDT
[2017-08-02 00:18] LABS: ALBUMIN 2.4 GM/DL (3.4-5.0); DIRECT BILIRUBIN ADULT 0.3 MG/DL (0.0-0.2)
[2017-08-02 00:20] LABS: INDIRECT BILIRUBIN 0.6 MG/DL (0.0-0.8); TOTAL BILIRUBIN ADULT 0.9 MG/DL (0.2-1.0); TOTAL PROTEIN 6.6 GM/DL (6.4-8.2)
[2017-08-02] MEDS: SODIUM BICARBONATE 8.4% INJ 150 MEQ in DEXTROSE 5% IN WATE 1000ML INJ 1,000 ML IV SCH ×4 (01:13→11:13)
[2017-08-02] MEDS: CHLORHEXIDINE GLUCONATE 2 % 1 PACK (2 CLOTHS) TOP SCH (04:00)
[2017-08-02] MEDS: metroNIDAZOLE 500 MG INJ 100 ML IV SCH ×3 (04:59→21:12)
[2017-08-02 05:19] LABS: INTERNATIONAL NORMALIZED RATIO 1.1 RATIO; PROTHROMBIN TIME - PATIENT 11.4 SEC (9.8-11.6)
[2017-08-02] MEDS: AZTREONAM INJ 2,000 MG in SODIUM CHLORIDE 0.9% INJ 100 ML IV SCH ×3 (05:39→21:11)
[2017-08-02] MEDS: GEMFIBROZIL 600 MG TAB PO SCH ×2 (07:00→16:00)
[2017-08-02] MEDS ORDERED: SODIUM CHLORID 0.9% 500 ML INJ 500 ML IV ONE ×3 (08:00→15:15)
[2017-08-02] MEDS: INSULIN ASPART SUPPLEMENTAL SCALE SQ SCH ×4 (08:00→21:00)
--- NOTE | 2017-08-02 08:24 | HHI.CCPN ---
Subjective Remarks/Hospital Course 76-year-old pleasantly demented female, [place] [facility] resident. The patient was noted earlier today to have a sudden onset of right gaze, as well as right- sided weakness. She was also found to be very hypotensive. Initial blood pressure 60/20, which responded to fluids and increased to 90/60. She presented to the hospital as a stroke-alert. The MRI of brain obtained in the emergency department showed only questionable tiny subacute lacunar infarcts posterior periventricular white matter. Moderate to severe chronic ischemic changes in the periventricular white matter. Remote left parietal lobe infarct. The CT of the abdomen and pelvis however shows the abnormal pancreas with enlargement and peripancreatic inflammation and edema characteristic of acute pancreatitis. Cholelithiasis without pancreatic duct dilatation. Subjective: 08/02: Afebrile. Patient continues to have severe metabolic acidosis sodium bicarbonate infusion continued. Patient on nonrebreather continuing to be weaned down . Patient bolused with 500 cc normal saline 1 this a.m.. Oliguric 150 cc urine output in the last 12 hours. Unable to assess the amount of IV fluid patient was given in the ED and overnight. No hematemesis or melena this a.m. Patient continues on Protonix twice daily. Patient currently on nonrebreather mask currently being weaned down O2 saturation 100% though PaO2 is 155. Triglycerides are pending. MRI is pending. Objective Vital Signs Date Time Temp Pulse Resp B/P (MAP) Pulse Ox O2 Delivery O2 Flow Rate FiO2 08/02/17 06:00 86 08/02/17 04:56 19 08/02/17 03:00 97.5 105/51 (69) 100 08/01/17 20:30 Non-Rebreather 15.00 08/01/17 19:15 100 Intake and Output 08/02/17 08/02/17 08/03/17 08:00 16:00 00:00 Intake Total 1450 ml Output Total 150 ml Balance 1300 ml Result Diagram: 08/01/17 1920 Other Results Laboratory Tests Test 08/01/17 20:17 08/02/17 05:44 Blood Gas Puncture Site LT RADIAL LT RADIAL Blood Gas Patient Temperature 98.6 98.6 Blood Gas HCO3 14 mmol/L (22-26) 16 mmol/L (22-26) Blood Gas Base Excess -12.1 mmol/L (-2-2) -9.8 mmol/L (-2-2) Blood Gas Oxygen Saturation 97 % (90-100) 96 % (90-100) Arterial Blood pH 7.27 (7.380-7.420) 7.25 (7.380-7.420) Arterial Blood Partial Pressure CO2 31 mmHg (38-42) 38 mmHg (38-42) Arterial Blood Partial Pressure O2 189 mmHG (61-120) 155 mmHg (61-120) Arterial Blood Oxygen Content 12.3 Vol % (12.0-20.0) 15.3 Vol % (12.0-20.0) Arterial Blood Carboxyhemoglobin 1.5 % (0-4) 0.7 % (0-4) Arterial Blood Methemoglobin 0.7 % (0-2) 1.7 % (0-2) Blood Gas Hemoglobin 8.7 G/DL (12.0-16.0) 11.1 G/DL (12.0-16.0) Oxygen Delivery Device Non-Rebreathing Mask Non-Rebreathing Mask Blood Gas Liter Flow 15 L/M 15 L/M Blood Gas Inspired Oxygen 100 % 100 % Imaging Last [address] 08/01/17 Signed Impressions: CONCLUSION: 1. No acute intracranial abnormality is identified. 2. However, there is encephalomalacia in the left parietal region and there is generalized atrophy with severe periventricular white matter low-attenuation c haracteristic of chronic microvascular ischemia. Chest X-Ray 08/01/17 Signed Impressions: CONCLUSION: Underinflated examination with small bilateral pleural effusions with compressi ve atelectasis at the lung bases. Carotid Artery Ultrasound 08/01/17 Signed Impressions: CONCLUSION: 1. Right Internal Carotid Artery: Findings indicate <50% stenosis. 2. Left Internal Carotid Artery: Findings indicate <50% stenosis. Abdomen/Pelvis CT 08/01/17 Signed Impressions: CONCLUSION: 1. The pancreas is abnormal with enlargement and peripancreatic inflammation a nd edema characteristic of acute pancreatitis. There is a small volume of free fluid in the abdomen and pelvis. 2. Cholelithiasis without pancreatic duct dilatation. 3. There is mild wall thickening of the inferior rectum with associated presac ral edema. 4. Small bilateral pleural effusions with associated compressive atelectasis. 5. There is a compression deformity of uncertain chronicity involving L3 and c ompression deformity with sclerosis involving T9. Objective Remarks GENERAL: This is a well-nourished, well-developed elderly female patient, in mild distress with complaints of pain. SKIN: No rashes, ecchymoses or lesions. Cool and dry. HEAD: Atraumatic. Normocephalic. No temporal or scalp tenderness. EYES: Pupils equal round and reactive. Extraocular motions intact. No scleral icterus. No injection or drainage. ENT: Nose without bleeding, purulent drainage or septal hematoma. Throat without erythema, tonsillar hypertrophy or exudate. Uvula midline. Airway patent. NECK: Trachea midline. No JVD or lymphadenopathy. Supple, nontender, no meningeal signs. CARDIOVASCULAR: Regular rate and rhythm with soft murmurs, no gallops, no rubs. RESPIRATORY: Poor inspiratory effort, diminished at bases. Bilateral chest excursion . Nonproductive cough. On nonrebreather mask GASTROINTESTINAL: Abdomen soft, non-tender, nondistended. No hepato-splenomegaly , or palpable masses. No guarding. MUSCULOSKELETAL: Extremities without clubbing, cyanosis, or edema. No joint tenderness, effusion, or edema noted. No calf tenderness. Negative Homans sign bilaterally. NEUROLOGICAL: Awakes to voice. Weak to upper extremities and lower extremities. Doesn't follow commands consistently. Doesn't appear to have any focal deficits. Urinary Catheter: Yes Date of Insertion: Aug 02, 2017 A/P Assessment and Plan Plan by systems: Neurologic: Acute left lacunar stroke History of previous CVA Schizophrenia Depression Schizophrenia Small lacunar stroke 08/02 MRI-moderate to severe ischemic changes. Tiny subacute lacunar infarcts. Remote left parietal lobe infarct 08/02 MRA brain-negative 08/02-CT brain-no acute abnormality Carotids-<50% stenosis Patient is followed by neurology-Dr. Michelle Not a candidate for TPA also due to acute GI bleed Risperidone Zoloft Respiratory: Acute respiratory insufficiency Maintain O2 saturation greater than 92% ABG this a.m. 7.2 5/38/155/16/-9.8 Currently on nonrebreather mask continue to wean Duo nebs every 6 hours scheduled every 2 hours as needed Incentive spirometry 08/02 CT-small bilateral pleural effusions bases Cardiovascular: Hypovolemic shock Apply Flowtrach-monitor parameters. Plan for possible intubation and multiple lab draws Bolus 1.5 L, in the ED. Patient bolus 500 cc IV now. Patient received 2 units packed red blood cells secondary to blood loss Maintain MAP greater than 65mmhg Renal: Maintain Mary catheter -- Strict I/Os FEN/GI: Acute pancreatitis-[place] Dyslipidemia GI bleed Bolus in ED with approximately 1500 cc normal saline. 500 cc normal saline IV 2 now Sodium bicarbonate infusion 150 cc/hr Broad-spectrum antibiotics Continue aggressive fluid Gemfibrozil 08/01 GI has been consulted Protonix twice daily Rectal wall thickening on the CT Protonix IV twice daily In ED patient was noted to have bright red blood per rectum 08/02- 1700 S/P MRI-at least one stone in the common bile duct. Stat consult to gastroenterology. I telephoned and spoke with Dr. Sanchez made him aware of patient's result. Further management per gastroenterology. Patient may need MRCP or ERCP Heme/ID: Acute blood loss anemia 2/2 GI bleed Monitor CBC Monitor H&H Transfuse for hemoglobin less than 7 Patient transfused 2 units packed red blood cells in the ED (08/01) Endocrine: Hyperglycemia Obtain hemoglobin A1c Glucose monitoring per ICU protocol. Low-dose regimen -- SSI Prophylaxis: GI Prophylaxis Protonix BID DVT Prophylaxis -- SCDs -Hold pharmacological DVT prophylaxis due to acute GI bleed Lines: Peripheral IVs 3. Central line if indicated Dispo: my billing statement This patient remains critically ill with one or more organ systems which are or may become a threat to life. I have spent in excess of 31 minutes discontinuously in the care and management of this patient. This time is exclusive of procedures, and includes, but is not limited to, evaluation of the patient, review of the medical record, discussions with family, consultants, nursing staff, or respiratory therapy, and documentation in the medical record. Physician Marcelina Levin MD Aug 02, 2017 08:24
[2017-08-02 08:41] LABS: ALBUMIN 2.1 GM/DL (3.4-5.0); BICARBONATE 10.6 MEQ/L (21.0-32.0); CALCIUM 6.9 MG/DL (8.5-10.1); CREATININE 5.45 MG/DL (0.50-1.00); TOTAL BILIRUBIN ADULT 1.1 MG/DL (0.2-1.0); TOTAL PROTEIN 6.1 GM/DL (6.4-8.2)
[2017-08-02 08:49] LABS: AUTOMATED NEUTROPHIL # 17.4 TH/MM3 (1.8-7.7); BASOPHIL % 0.1 % (0.0-2.0); HEMATOCRIT 35.2 % (35.0-46.0); HEMOGLOBIN 11.7 GM/DL (11.6-15.3); LYMPH % 3.6 % (9.0-44.0); LYMPHOCYTE # 0.7 TH/MM3 (1.0-4.8); MEAN CELL VOLUME 87.2 FL (80.0-100.0); MEAN CORPUSCULAR HGB CONC 33.3 % (32.0-36.0); MEAN PLATELET VOLUME 10.1 FL (7.0-11.0); MONO % 3.9 % (0.0-8.0); MONOCYTE # 0.7 TH/MM3 (0-0.9); NEUT % 92.4 % (16.0-70.0); PLATELET COUNT 200 TH/MM3 (150-450); RED BLOOD COUNT 4.03 MIL/MM3 (4.00-5.30); WHITE BLOOD COUNT 18.8 TH/MM3 (4.0-11.0)
[2017-08-02] MEDS ORDERED: FAMOTIDINE 20 MG/2 ML VIAL IV PUSH SCH (09:00)
[2017-08-02] MEDS: SODIUM CHLORIDE 0.9% FLUSH 10 ML FLUSH IV FLUSH SCH ×2 (09:00→21:10)
[2017-08-02] MEDS ORDERED: SODIUM CHLORIDE 0.9% FLUSH 10 ML FLUSH IV FLUSH SCH (09:00)
[2017-08-02 09:28] LABS: MAGNESIUM 1.6 MG/DL (1.5-2.5); PHOSPHORUS 6.1 MG/DL (2.5-4.9); TROPONIN I 0.03 NG/ML (0.02-0.05)
[2017-08-02 10:20] LABS: CALCIUM-PROTEIN CORRECTED 7.4 MG/DL (8.5-10.1)
[2017-08-02] MEDS: DOCUSATE SODIUM 50 MG/SENNA 8.6 MG TAB PO SCH ×2 (13:18→21:00)
[2017-08-02] MEDS: SERTRALINE HCL 100 MG TAB PO SCH (13:18)
[2017-08-02] MEDS: PANTOPRAZOLE SODIUM 40 MG VIAL IV PUSH SCH ×3 (13:19→23:53)
--- NOTE | 2017-08-02 13:39 | MG ---
cc: Radha Stacy MD EEG NUMBER: [id number] REFERRING PHYSICIAN: Dr. Michelle In room 521 with photic done. No sedation. Awake, drowsy and asleep. EEG 01/18/2007 was normal. MRI, possible tiny subacute lacune in the posterior white matter. INDICATIONS: Patient's from the intermediate new onset extremity weakness, gaze flaccid, fixed gaze to the right. History of stroke, syncope, schizophrenia MEDICATIONS: On Protonix, metronidazole, Dilaudid given at 4 o'clock in the morning, Aztreonam. DESCRIPTION OF RECORD: His background is of 4 Hz, 40 microvolts. EKG looks sinus. Muscle artifact seen, but overall moderate slowing bilaterally. Photic stimulation, there is a mild driving response. IMPRESSION: Moderate slowing of background consistent with encephalopathy. No epileptic activity. Radha Stacy MD DF/DL , 12:55 PM , 01:38 PM
--- NOTE | 2017-08-02 13:43 | PD.CONS ---
HPI History of Present Illness This is a 76 year old F with PMH significant for CKD, dementia, anxiety, GERD, osteoarthritis, compression fracture, depression, and schizophrenia. [place] is a [place] who was brought to the ER yesterday by EMS due to sudden onset of R gaze and right sided weakness, evaluated by neurology who reports she is not a candidate for TPA given witnessed bloody BM in ER and she can not have a CTA due to CKD. They recommended holding anticoagulation until further GI work up. Our service has been consulted due to rectal bleeding and pancreatitis. Pt unable to provide a history, she is oriented to person and place but can not remember history. Per RN pt had a bloody BM yesterday in the ER, she has had no BM since transferred to ICU. In ER pt was also found to be severely hypotensive, she received fluid bolus in the ER, currently with arterial line for close monitoring. CT findings reveal acute pancreatitis with labs revealing an elevated lipase and metabolic acidosis, pt on Bicarbonate gtt. No previous records revealing previous pancreatitis or GIB. No previous colonoscopy or EGD in chart. (Babita Farrell) PFSH Past Medical History Chronic kidney disease stage III Dementia Depression Schizophrenia Anxiety GERD Osteoarthritis Compression fracture Past Surgical History Right lumpectomy Hysterectomy (Babita Farrell) Coded Allergies: aspirin (Unverified Allergy, Severe, 10/16/16) PT HAS TINNITUS penicillin G (Unverified Allergy, Severe, 10/16/16) Review of Systems Pt states she does not feel well. Unable to provide ROS. Per RN reports of bloody stool in ER. (Babita Farrell) GI Exam Vitals I&O Vital Signs Date Time Temp Pulse Resp B/P (MAP) Pulse Ox O2 Delivery O2 Flow Rate FiO2 08/02/17 10:00 87 08/02/17 08:00 89 08/02/17 06:00 86 08/02/17 04:56 19 08/02/17 04:00 87 08/02/17 03:00 97.5 88 33 105/51 (69) 100 08/02/17 02:00 92 08/02/17 00:00 88 08/01/17 23:47 08/01/17 23:27 98.5 95 20 93/52 (66) 100 08/01/17 20:30 98 28 106/53 (70) 98 Non-Rebreather 15.00 08/01/17 20:04 100.0 97 28 91/47 (62) 100 Non-Rebreather 08/01/17 19:45 97 96 Non-Rebreather 15.00 08/01/17 19:15 96 15.00 100 08/01/17 19:15 96 Non-Rebreather 15.00 100 08/01/17 19:14 88 I/O 08/01/17 08/01/17 08/01/17 08/02/17 08/02/17 08/02/17 07:00 15:00 23:00 07:00 15:00 23:00 Intake Total 1600 ml 1025 ml 425 ml Output Total 150 ml Balance 1600 ml 875 ml 425 ml Intake IV Total 1600 ml 550 ml Packed Cells 400 ml 400 ml Blood Product IV Normal Saline Flush 75 ml 25 ml Output Urine Total 150 ml # Bowel Movements 0 Imaging Last Impressions Head Magnetic Resonance Angiography 08/01/17 Signed Impressions: CONCLUSION: 1. Negative MRA Cow ([place]) non contrast. Head CT 08/01/17 Signed Impressions: CONCLUSION: 1. No acute intracranial abnormality is identified. 2. However, there is encephalomalacia in the left parietal region and there is generalized atrophy with severe periventricular white matter low-attenuation c haracteristic of chronic microvascular ischemia. Chest X-Ray 08/01/17 Signed Impressions: CONCLUSION: Underinflated examination with small bilateral pleural effusions with compressi ve atelectasis at the lung bases. Carotid Artery Ultrasound 08/01/17 Signed Impressions: CONCLUSION: 1. Right Internal Carotid Artery: Findings indicate <50% stenosis. 2. Left Internal Carotid Artery: Findings indicate <50% stenosis. Brain MRI 08/01/17 Signed Impressions: CONCLUSION: 1. Questionable tiny subacute lacunar infarcts posterior periventricular white matter. Moderate to severe chronic ischemic changes in the periventricular whi te matter. Remote left parietal lobe infarct. Abdomen/Pelvis CT 08/01/17 Signed Impressions: CONCLUSION: 1. The pancreas is abnormal with enlargement and peripancreatic inflammation a nd edema characteristic of acute pancreatitis. There is a small volume of free fluid in the abdomen and pelvis. 2. Cholelithiasis without pancreatic duct dilatation. 3. There is mild wall thickening of the inferior rectum with associated presac ral edema. 4. Small bilateral pleural effusions with associated compressive atelectasis. 5. There is a compression deformity of uncertain chronicity involving L3 and c ompression deformity with sclerosis involving T9. Laboratory Test 08/01/17 19:20 08/01/17 20:17 08/01/17 20:41 08/01/17 21:10 White Blood Count 20.9 TH/MM3 Red Blood Count 3.49 MIL/MM3 Hemoglobin 10.0 GM/DL Bedside Hemoglobin 9.5 G/DL Hematocrit 30.1 % Bedside Hematocrit 28.0 % Mean Corpuscular Volume 86.2 FL Mean Corpuscular Hemoglobin 28.5 PG Mean Corpuscular Hemoglobin Concent 33.1 % Red Cell Distribution Width 13.6 % Platelet Count 226 TH/MM3 Mean Platelet Volume 9.7 FL Neutrophils (%) (Auto) 89.7 % Lymphocytes (%) (Auto) 4.9 % Monocytes (%) (Auto) 5.4 % Eosinophils (%) (Auto) 0.0 % Basophils (%) (Auto) 0.0 % Neutrophils # (Auto) 18.7 TH/MM3 Lymphocytes # (Auto) 1.0 TH/MM3 Monocytes # (Auto) 1.1 TH/MM3 Eosinophils # (Auto) 0.0 TH/MM3 Basophils # (Auto) 0.0 TH/MM3 CBC Comment DIFF FINAL Differential Comment Prothrombin Time 11.5 SEC Prothromb Time International Ratio 1.1 RATIO Activated Partial Thromboplast Time 29.7 SEC Fibrinogen 602 mg/dL Bedside Sodium 135 MMOL/L Bedside Potassium 3.4 MMOL/L Bedside Chloride 101 MMOL/L Bedside Blood Urea Nitrogen 110 MG/DL Bedside Creatinine 6.5 MG/DL Bedside Glucose 112 MG/DL Total Bilirubin 0.9 MG/DL Direct Bilirubin 0.3 MG/DL Indirect Bilirubin 0.6 MG/DL Aspartate Amino Transf (AST/SGOT) 92 U/L Alanine Aminotransferase (ALT/SGPT) 350 U/L Alkaline Phosphatase 89 U/L Total Creatine Kinase 405 U/L Creatine Kinase MB 3.3 NG/ML Creatine Kinase MB % 0.8 % Troponin I LESS THAN 0.02 NG/ML Total Protein 6.6 GM/DL Albumin 2.4 GM/DL Lipase 1442 U/L Blood Gas Puncture Site LT RADIAL Blood Gas Patient Temperature 98.6 Blood Gas HCO3 14 mmol/L Blood Gas Base Excess -12.1 mmol/L Blood Gas Oxygen Saturation 97 % Arterial Blood pH 7.27 Arterial Blood Partial Pressure CO2 31 mmHg Arterial Blood Partial Pressure O2 189 mmHG Arterial Blood Oxygen Content 12.3 Vol % Arterial Blood Carboxyhemoglobin 1.5 % Arterial Blood Methemoglobin 0.7 % Blood Gas Hemoglobin 8.7 G/DL Oxygen Delivery Device Non-Rebreathing Mask Blood Gas Liter Flow 15 L/M Blood Gas Inspired Oxygen 100 % Urine Color DARK-BROWN Urine Turbidity CLOUDY Urine pH 5.0 Urine Specific [place] 1.022 Urine Protein 100 mg/dL Urine Glucose (UA) TRACE mg/dL Urine Ketones NEG mg/dL Urine Occult Blood LARGE Urine Nitrite NEG Urine Bilirubin NEG Urine Urobilinogen LESS THAN 2.0 MG/DL Urine Leukocyte Esterase LARGE Urine RBC 121 /hpf Urine WBC 50 /hpf Urine Squamous Epithelial Cells 2 /hpf Urine Amorphous Sediment RARE Urine Bacteria FEW /hpf Urine Mucus FEW /lpf Microscopic Urinalysis Comment CATH-CULTURE IND Test 08/01/17 21:15 08/01/17 23:30 08/02/17 04:52 08/02/17 04:53 Urine Opiates Screen NEG Urine Barbiturates Screen NEG Urine Amphetamines Screen NEG Urine Benzodiazepines Screen NEG Urine Cocaine Screen NEG Urine Cannabinoids Screen NEG Nasal Screen MRSA (PCR) MRSA NOT DETECTED Blood Urea Nitrogen 105 MG/DL Creatinine 5.45 MG/DL Random Glucose 159 MG/DL Total Protein 6.1 GM/DL Albumin 2.1 GM/DL Calcium Level 6.9 MG/DL Phosphorus Level 6.1 MG/DL Magnesium Level 1.6 MG/DL Alkaline Phosphatase 79 U/L Aspartate Amino Transf (AST/SGOT) 95 U/L Alanine Aminotransferase (ALT/SGPT) 269 U/L Total Bilirubin 1.1 MG/DL Sodium Level 137 MEQ/L Potassium Level 3.4 MEQ/L Chloride Level 104 MEQ/L Carbon Dioxide Level 10.6 MEQ/L Anion Gap 22 MEQ/L Estimat Glomerular Filtration Rate 8 ML/MIN Protein Corrected Calcium 7.4 MG/DL Troponin I 0.03 NG/ML Prothrombin Time 11.4 SEC Prothromb Time International Ratio 1.1 RATIO Activated Partial Thromboplast Time 24.7 SEC Test 08/02/17 05:44 08/02/17 07:35 08/02/17 07:57 Blood Gas Puncture Site LT RADIAL Blood Gas Patient Temperature 98.6 Blood Gas HCO3 16 mmol/L Blood Gas Base Excess -9.8 mmol/L Blood Gas Oxygen Saturation 96 % Arterial Blood pH 7.25 Arterial Blood Partial Pressure CO2 38 mmHg Arterial Blood Partial Pressure O2 155 mmHg Arterial Blood Oxygen Content 15.3 Vol % Arterial Blood Carboxyhemoglobin 0.7 % Arterial Blood Methemoglobin 1.7 % Blood Gas Hemoglobin 11.1 G/DL Oxygen Delivery Device Non-Rebreathing Mask Blood Gas Liter Flow 15 L/M Blood Gas Inspired Oxygen 100 % White Blood Count 18.8 TH/MM3 Red Blood Count 4.03 MIL/MM3 Hemoglobin 11.7 GM/DL Hematocrit 35.2 % Mean Corpuscular Volume 87.2 FL Mean Corpuscular Hemoglobin 29.0 PG Mean Corpuscular Hemoglobin Concent 33.3 % Red Cell Distribution Width 14.0 % Platelet Count 200 TH/MM3 Mean Platelet Volume 10.1 FL Neutrophils (%) (Auto) 92.4 % Lymphocytes (%) (Auto) 3.6 % Monocytes (%) (Auto) 3.9 % Eosinophils (%) (Auto) 0.0 % Basophils (%) (Auto) 0.1 % Neutrophils # (Auto) 17.4 TH/MM3 Lymphocytes # (Auto) 0.7 TH/MM3 Monocytes # (Auto) 0.7 TH/MM3 Eosinophils # (Auto) 0.0 TH/MM3 Basophils # (Auto) 0.0 TH/MM3 CBC Comment AUTO DIFF Differential Comment AUTO DIFF CONFIRMED Lactic Acid Level 0.9 mmol/L Date/Time Source Procedure Growth Status 08/01/17 22:05 Blood Peripheral Aerobic Blood Culture - Preliminary NO GROWTH IN 1 DAY Resulted 08/01/17 22:05 Blood Peripheral Anaerobic Blood Culture - Preliminary NO GROWTH IN 1 DAY Resulted 08/01/17 21:10 Urine Catheterized Urine Urine Culture Pending Received Physical Examination HEENT: Normocephalic; atraumatic CHEST: Even/unlabored CARDIAC: RRR ABDOMEN: Distended, semi-firm, nontender, bowel sounds active SYSTEMS PROGRAM MANAGER: Alert and oriented times two (Babita Farrell) Assessment and Plan Plan Assessment: - Rectal bleeding- Bloody BM witness in ER, pt received 2 U PRBCs H/H currently 11.7/35.2- pt presented to with right sided gaze and weakness, seen by neurology who reports not a candidate for TPA given bloody stools. Also recommended withholding anticoagulants or antiplatelets because of this. Pt unable to provide history, dementia and stroke- no previous records revealing history of GIB, colonoscopy, or EGD. CT reveals mild wall thickening of the inferior rectum with associated presacral edema - Pancreatitis- Lipase-1442 with elevated LFTs and metabolic acidosis (08/01) AST-92 ALT-350 Alk phos-89 T bili-0.9 CT abdomen and pelvis WO IV contrast --> The pancreas is abnormal with enlargement and peripancreatic inflammation and edema characteristic of acute pancreatitis. There is a small volume of free fluid in the abdomen and pelvis. Cholelithiasis without pancreatic duct dilatation. ? Biliary pancreatitis, ? medication induced (Lisinopril, Zoloft, Risperidone) Lipid panel pending - R sided gaze and R sided weakness- neurology following- no anticoagulants given reports of GIB Plan: Serial H/H Flex sig/colonoscopy timing TBD on clinical course and clinical status- respiratory status and blood pressure- will follow serial H/H MRCP Lipid panel pending Monitor labs Protonix Bicarb gtt Broad spectrum abx per CCM Stool studies Further recommendations based on clinical course and results of above Pt has been seen and examined by myself and Dr. Sanchez and this note is written on his behalf (Babita Farrell) Physician Comments Seen with Babita, plan as above, will follow up with you. Will check MRCP results today. Thank you for the consult. (Trinh Sanchez MD) Babita Farrell Aug 02, 2017 13:43 Trinh Sanchez MD Aug 02, 2017 14:19
[2017-08-02 14:03] LABS: HEMATOCRIT 34.8 % (35.0-46.0); HEMOGLOBIN 11.7 GM/DL (11.6-15.3)
[2017-08-02 14:30] LABS: CHOLESTEROL/ HDL RATIO 9.61 RATIO; HDL CHOLESTEROL 7.7 MG/DL (40.0-60.0)
--- NOTE | 2017-08-02 14:47 | EKG ---
Date Performed: 08/01/2017 Time Performed: 19:46:11 PTAGE: 76 years EKG: Sinus rhythm MARKED LEFT AXIS DEVIATION LOW QRS VOLTAGE IN PRECORDIAL LEADS POSSIBLE RIGHT VENTRICULAR CONDUCTION DELAY VOLTAGE CRITERIA FOR LVH NONSPECIFIC ST & T-WAVE ABNORMALITY ABNORMAL ECG Since the PREVIOUS TRACING , no significant change noted PREVIOUS TRACIN11/09/2016 10.06 DOCTOR: Jake Abrams Interpretating Date/Time 08/02/2017 14:46:52
[2017-08-02] MEDS: SODIUM BICARBONATE 8.4% INJ 150 MEQ in DEXTROSE 5% IN WATE 1000ML INJ 850 ML IV SCH ×4 (15:15→21:12)
[2017-08-02] MEDS ORDERED: SODIUM BICARBONATE 8.4% INJ 50 MEQ/50 ML SYR IV PUSH ONE (15:15)
[2017-08-02] MEDS ORDERED: POTASSIUM CHLOR 20 MEQ PREMIX 100 ML IV ONE (15:30)
[2017-08-02] MEDS ORDERED: MAGNESIUM SULFATE 1 GM PREMIX 100 ML IV ONE (16:00)
[2017-08-02] MEDS ORDERED: CALCIUM GLUCONATE INJ 2 GM in DEXTROSE 5% IN WATER 100ML INJ 100 ML IV ONE ×2 (16:00)
--- NOTE | 2017-08-02 16:06 | RADRPT ---
EXAM DATE: 08/02/2017 3:54 PM EDT AGE/SEX: 76 years / Female INDICATIONS: Pancreatitis. Cholelithiasis. CLINICAL DATA: This is the patient's initial encounter. Patient reports that signs and symptoms have been present for 1 day and indicates a pain score of 4/10. MEDICAL/SURGICAL HISTORY: . Hysterectomy. COMPARISON: No prior [facility] exams available for comparison. TECHNIQUE: Multiplanar, multisequence images of the abdomen were obtained without contrast including dedicated cholangiographic images. FINDINGS: Multiple large gallstones are present and a prominent gallbladder. At least 1 stones is present in a normal size common duct sitting above the ampulla. Minimal gallbladder wall thickening is present. Minimal trace fluid is seen around the gallbladder The liver is free of focal defects without intrahepatic biliary duct dilatation Spleen is unremarkable Pancreas is poorly seen because of motion. There is some fluid in the lesser sac consistent with panc reatitis. Bilateral renal cysts are evident with the largest measuring 2.7 cm on the left. CONCLUSION: 1. Gallstones with at least one stone in the common duct 2. Pancreas poorly visualized because of motion. 3. Fluid present in the lesser sac consistent with pancreatitis. Electronically signed by: Merritt Gibson MD 08/02/2017 4:05 PM EDT
[2017-08-02 16:54] LABS: HEMOGLOBIN A1C 5.6 % (4.3-6.0)
[2017-08-02 17:02] LABS: HEMOGLOBIN A1C 5.6 % (4.3-6.0)
[2017-08-02 17:58] LABS: HEMATOCRIT 33.1 % (35.0-46.0); HEMOGLOBIN 11.1 GM/DL (11.6-15.3)
--- NOTE | 2017-08-02 18:41 | HHI.PR ---
Review/Management Diagnosis left hemisphere cva. exam stable Diagnosis/Plan: Subjective Subjective Comments No acute events reported Active Medications Current Medications Medications (Trade) Dose Ordered Sig/Nadia Route Start Time Stop Time Status Last Admin (NovoLOG SUPPLEMENTAL SCALE) 1 ACHS SQ 08/01/17 21:00 (D50w (Vial) Inj) 50 ml UNSCH PRN IV PUSH 08/01/17 20:00 (Glucagon Inj) 1 mg UNSCH PRN OTHER 08/01/17 20:00 (Lopid) 600 mg BIDAC PO 08/02/17 07:00 08/02/17 07:00 (risperDAL) 0.5 mg HS PO 08/01/17 22:00 (Zoloft) 100 mg DAILY PO 08/02/17 09:00 08/02/17 13:18 (risperDAL) 2 mg HS PO 08/01/17 22:00 Future Hold (NS Flush) 2 ml UNSCH PRN IV FLUSH 08/01/17 21:15 (NS Flush) 2 ml BID IV FLUSH 08/02/17 09:00 (Tylenol) 650 mg Q6H PRN PO 08/01/17 21:15 (Dilaudid Pf Inj) 1 mg Q4H PRN IV PUSH 08/01/17 21:15 08/02/17 04:11 (Zofran Inj) 4 mg Q6H PRN IV PUSH 08/01/17 21:15 (Restoril) 15 mg HS PRN PO 08/01/17 21:15 Future Hold (Duoneb Neb) 1 ampule Q2HR NEB PRN INH 08/01/17 21:15 ([facility]) 1 Q361D XX 08/01/17 21:15 (Chlorhexidine 2% Cloth) 3 pack Taper DAILY@04 TOP 08/02/17 04:00 07/29/18 03:59 08/02/17 04:00 (Chlorhexidine 2% Cloth) 3 pack UNSCH PRN TOP 08/01/17 21:15 (Guillermina-Colace) 1 tab BID PO 08/02/17 09:00 08/02/17 13:18 (Milk Of Magnesia Liq) 30 ml Q12H PRN PO 08/01/17 21:15 (Senokot) 17.2 mg Q12H PRN PO 08/01/17 21:15 (Dulcolax Supp) 10 mg DAILY PRN RECTAL 08/01/17 21:15 (Lactulose Liq) 30 ml DAILY PRN PO 08/01/17 21:15 Pharmacy Profile Note 0 ml @ 0 mls/hr UNSCH OTHER 08/01/17 21:15 Aztreonam 2000 mg/ Sodium Chloride 100 ml @ 200 mls/hr Q8H IV 08/01/17 22:00 08/02/17 14:00 Metronidazole 100 ml @ 100 mls/hr Q8H IV 08/01/17 22:00 08/02/17 15:00 (Protonix Inj) 40 mg Q12H IV PUSH 08/02/17 00:00 08/02/17 13:19 Sodium Bicarbonate 150 meq/Dextrose 1,000 ml @ 150 mls/hr Q6H40M IV 08/02/17 15:15 Allergies Allergies Coded Allergies aspirin (Unverified Allergy, Severe, 10/16/16) penicillin G (Unverified Allergy, Severe, 10/16/16) Exam I&O / VS 08/02/17 08/02/17 08/03/17 15:00 23:00 07:00 Intake Total 425 ml Output Total 500 ml Balance 425 ml -500 ml Packed Cells 400 ml Blood Product IV Normal Saline Flush 25 ml Output Urine Total 500 ml # Bowel Movements 0 Vital Signs Date Time Temp Pulse Resp B/P (MAP) Pulse Ox O2 Delivery O2 Flow Rate FiO2 08/02/17 10:00 87 08/02/17 08:00 89 08/02/17 06:00 86 08/02/17 04:56 19 08/02/17 04:00 87 08/02/17 03:00 97.5 88 33 105/51 (69) 100 08/02/17 02:00 92 08/02/17 00:00 88 08/01/17 23:47 08/01/17 23:27 98.5 95 20 93/52 (66) 100 08/01/17 20:30 98 28 106/53 (70) 98 Non-Rebreather 15.00 08/01/17 20:04 100.0 97 28 91/47 (62) 100 Non-Rebreather 08/01/17 19:45 97 96 Non-Rebreather 15.00 08/01/17 19:15 96 15.00 100 08/01/17 19:15 96 Non-Rebreather 15.00 100 08/01/17 19:14 88 Exam Comments alert, follow commands, speech dysarthric CN intact MOTOR--generalized weakness R>L Objective Radiology Results MRI brain--? several small acute inrarcts left posterior parietal white matter Micro and Labs Laboratory Tests Test 08/01/17 19:20 08/01/17 20:17 08/01/17 20:41 08/01/17 21:10 White Blood Count 20.9 Red Blood Count 3.49 Hemoglobin 10.0 Bedside Hemoglobin 9.5 Hematocrit 30.1 Bedside Hematocrit 28.0 Mean Corpuscular Volume 86.2 Mean Corpuscular Hemoglobin 28.5 Mean Corpuscular Hemoglobin Concent 33.1 Red Cell Distribution Width 13.6 Platelet Count 226 Mean Platelet Volume 9.7 Neutrophils (%) (Auto) 89.7 Lymphocytes (%) (Auto) 4.9 Monocytes (%) (Auto) 5.4 Eosinophils (%) (Auto) 0.0 Basophils (%) (Auto) 0.0 Neutrophils # (Auto) 18.7 Lymphocytes # (Auto) 1.0 Monocytes # (Auto) 1.1 Eosinophils # (Auto) 0.0 Basophils # (Auto) 0.0 CBC Comment DIFF FINAL Differential Comment Prothrombin Time 11.5 Prothromb Time International Ratio 1.1 Activated Partial Thromboplast Time 29.7 Fibrinogen 602 Bedside Sodium 135 Bedside Potassium 3.4 Bedside Chloride 101 Bedside Blood Urea Nitrogen 110 Bedside Creatinine 6.5 Bedside Glucose 112 Total Bilirubin 0.9 Direct Bilirubin 0.3 Indirect Bilirubin 0.6 Aspartate Amino Transf (AST/SGOT) 92 Alanine Aminotransferase (ALT/SGPT) 350 Alkaline Phosphatase 89 Total Creatine Kinase 405 Creatine Kinase MB 3.3 Creatine Kinase MB % 0.8 Troponin I LESS THAN 0.02 Total Protein 6.6 Albumin 2.4 Lipase 1442 Blood Gas Puncture Site LT RADIAL Blood Gas Patient Temperature 98.6 Blood Gas HCO3 14 Blood Gas Base Excess -12.1 Blood Gas Oxygen Saturation 97 Arterial Blood pH 7.27 Arterial Blood Partial Pressure CO2 31 Arterial Blood Partial Pressure O2 189 Arterial Blood Oxygen Content 12.3 Arterial Blood Carboxyhemoglobin 1.5 Arterial Blood Methemoglobin 0.7 Blood Gas Hemoglobin 8.7 Oxygen Delivery Device Non-Rebreathing Mask Blood Gas Liter Flow 15 Blood Gas Inspired Oxygen 100 Hemoglobin A1c 5.6 Urine Color DARK-BROWN Urine Turbidity CLOUDY Urine pH 5.0 Urine Specific [place] 1.022 Urine Protein 100 Urine Glucose (UA) TRACE Urine Ketones NEG Urine Occult Blood LARGE Urine Nitrite NEG Urine Bilirubin NEG Urine Urobilinogen LESS THAN 2.0 Urine Leukocyte Esterase LARGE Urine RBC 121 Urine WBC 50 Urine Squamous Epithelial Cells 2 Urine Amorphous Sediment RARE Urine Bacteria FEW Urine Mucus FEW Microscopic Urinalysis Comment CATH-CULTURE IND Test 08/01/17 21:15 08/01/17 23:30 08/02/17 04:53 08/02/17 05:44 Urine Opiates Screen NEG Urine Barbiturates Screen NEG Urine Amphetamines Screen NEG Urine Benzodiazepines Screen NEG Urine Cocaine Screen NEG Urine Cannabinoids Screen NEG Nasal Screen MRSA (PCR) MRSA NOT DETECTED Prothrombin Time 11.4 Prothromb Time International Ratio 1.1 Activated Partial Thromboplast Time 24.7 Blood Gas Puncture Site LT RADIAL Blood Gas Patient Temperature 98.6 Blood Gas HCO3 16 Blood Gas Base Excess -9.8 Blood Gas Oxygen Saturation 96 Arterial Blood pH 7.25 Arterial Blood Partial Pressure CO2 38 Arterial Blood Partial Pressure O2 155 Arterial Blood Oxygen Content 15.3 Arterial Blood Carboxyhemoglobin 0.7 Arterial Blood Methemoglobin 1.7 Blood Gas Hemoglobin 11.1 Oxygen Delivery Device Non-Rebreathing Mask Blood Gas Liter Flow 15 Blood Gas Inspired Oxygen 100 Test 08/02/17 07:57 08/02/17 13:10 08/02/17 17:30 White Blood Count 18.8 Red Blood Count 4.03 Hemoglobin 11.7 11.7 11.1 Hematocrit 35.2 34.8 33.1 Mean Corpuscular Volume 87.2 Mean Corpuscular Hemoglobin 29.0 Mean Corpuscular Hemoglobin Concent 33.3 Red Cell Distribution Width 14.0 Platelet Count 200 Mean Platelet Volume 10.1 Neutrophils (%) (Auto) 92.4 Lymphocytes (%) (Auto) 3.6 Monocytes (%) (Auto) 3.9 Eosinophils (%) (Auto) 0.0 Basophils (%) (Auto) 0.1 Neutrophils # (Auto) 17.4 Lymphocytes # (Auto) 0.7 Monocytes # (Auto) 0.7 Eosinophils # (Auto) 0.0 Basophils # (Auto) 0.0 CBC Comment AUTO DIFF Differential Comment AUTO DIFF CONFIRMED Hemoglobin A1c 5.6 Lactic Acid Level 0.9 Blood Urea Nitrogen 105 Creatinine 5.45 Random Glucose 159 Total Protein 6.1 Albumin 2.1 Calcium Level 6.9 Phosphorus Level 6.1 Magnesium Level 1.6 Alkaline Phosphatase 79 Aspartate Amino Transf (AST/SGOT) 95 Alanine Aminotransferase (ALT/SGPT) 269 Total Bilirubin 1.1 Sodium Level 137 Potassium Level 3.4 Chloride Level 104 Carbon Dioxide Level 10.6 Anion Gap 22 Estimat Glomerular Filtration Rate 8 Protein Corrected Calcium 7.4 Troponin I 0.03 Triglycerides Level 196 Cholesterol Level 74 LDL Cholesterol 27 HDL Cholesterol 7.7 Cholesterol/HDL Ratio 9.61 Amylase Level 420 Lipase 773 Date/Time Source Procedure Growth Status 08/01/17 22:05 Blood Peripheral Aerobic Blood Culture - Preliminary NO GROWTH IN 1 DAY Resulted 08/01/17 22:05 Blood Peripheral Anaerobic Blood Culture - Preliminary NO GROWTH IN 1 DAY Resulted 08/01/17 21:10 Urine Catheterized Urine Urine Culture - Preliminary NO GROWTH IN 24 HOURS. Resulted Patricio Michelle MD PhD Aug 02, 2017 18:41
[2017-08-02] MEDS ORDERED: NOREPINEPHRINE-DEXTROSE DRIP 250 ML IV ONE (18:45)
[2017-08-02] MEDS ORDERED: SODIUM CHLOR 0.9% 1000 ML INJ 1,000 ML IV ONE ×2 (18:45)
[2017-08-02] MEDS: NOREPINEPHRINE 4 MG/D5W 250 ML IV PRN (19:45)
[2017-08-02 20:11] LABS: CREATININE, RANDOM URINE 55.2 MG/DL
[2017-08-02] MEDS: risperiDONE 0.5 MG TAB PO SCH (21:00)
--- NOTE | 2017-08-02 21:00 | ECHRPT ---
Indication: CVA/TIA CONCLUSIONS Normal left ventricular size. Wall thickness is normal. The left ventricular systolic function is normal with an estimated ejection fraction in the range of 55-60%. The left ventricle is not well visualized. The right ventricle is moderately dilated. The right ventricular systoilc function is mildly decreased. Aortic valve sclerosis is present. The pulmonary valve is not well visualized. BP: / HR: Rhythm: MEASUREMENTS (Male / Female) Normal Values Technical Quality: 2D ECHO LV Diastolic Diameter PLAX 4.3 cm 4.2 - 5.9 / 3.9 - 5.3 cm LV Systolic Diameter PLAX 3.3 cm IVS Diastolic Thickness 1.2 cm 0.6 - 1.0 / 0.6 - 0.9 cm LVPW Diastolic Thickness 0.7 cm 0.6 - 1.0 / 0.6 - 0.9 cm LV Relative Wall Thickness 0.4 RV Internal Dim ED PLAX 2.5 cm DOPPLER Mitral E Point Velocity 82.7 cm/s Mitral A Point Velocity 85.1 cm/s Mitral E to A Ratio 1.0 TR Peak Velocity 328.0 cm/s TR Peak Gradient 43.0 mmHg FINDINGS LEFT VENTRICLE Normal left ventricular size. Wall thickness is normal. The left ventricular systolic function is normal with an estimated ejection fraction in the range of 55-60%. The left ventricle is not well visualized. RIGHT VENTRICLE The right ventricle is moderately dilated. The right ventricular systoilc function is mildly decreased. LEFT ATRIUM The left atrial size is normal. RIGHT ATRIUM The right atrial size is normal. ATRIAL SEPTUM Normal atrial septal thickness without atrial level shunting by limited color doppler interrogation. AORTA The aortic root and proximal ascending aorta are normal in size on limited imaging. MITRAL VALVE Structurally normal mitral valve. No mitral valve stenosis or regurgitation. AORTIC VALVE Aortic valve sclerosis is present. TRICUSPID VALVE Structurally normal tricuspid valve. No tricuspid valve stenosis or regurgitation. PULMONARY VALVE The pulmonary valve is not well visualized. VESSELS The inferior vena cava is normal in size. PERICARDIUM No pericardial effusion. Toni Posada MD, FACC (Electronically Signed) Final Date:02 August 2017 20:59
--- NOTE | 2017-08-02 21:02 | PD.PROCEDR ---
Procedure Note Procedure Central line placement A time-out was completed verifying correct patient, procedure, site, positioning , and special equipment if applicable. The patient was placed in a dependent position appropriate for central line placement based on the vein to be cannulated. The patients right neck was prepped and draped in sterile fashion. 1% Lidocaine was used to anesthetize the surrounding skin area. A triple lumen 9 -Iranian Cordis catheter was introduced into the the internal jugular vein using the Seldinger technique and under ultrasound guidance. The catheter was threaded smoothly over the guide wire and appropriate blood return was obtained. Each lumen of the catheter was evacuated of air and flushed with sterile saline. The catheter was then sutured in place to the skin and a sterile dressing applied. Perfusion to the extremity distal to the point of catheter insertion was checked and found to be adequate. Estimated Blood Loss: 1ml The patient tolerated the procedure well and there were no complications. Los Covarrubias MD Aug 02, 2017 9:02 pm
--- NOTE | 2017-08-02 21:31 | RADRPT ---
EXAM DATE: 08/02/2017 9:26 PM EDT AGE/SEX: 76 years / Female INDICATIONS: Evaluate central line placement. CLINICAL DATA: This is the patient's initial encounter. Patient reports that signs and symptoms have been present for 1 day and indicates a pain score of Nonresponsive. MEDICAL/SURGICAL HISTORY: None. Hysterectomy. COMPARISON: [facility] – [place], CHEST SINGLE AP, 08/01/2017. . FINDINGS: A single AP semierect portable view of the chest was obtained. The study remains mid inspiratory. The re is increased opacity in the left perihilar region and both lung bases there is been interval place ment of a right-sided central venous line with no pneumothorax. Costophrenic angles appear blunted le ft greater than right. Atherosclerotic changes are present in the aorta. The bony thorax is intact. CONCLUSION: 1. Interval placement of right central venous catheter with no pneumothorax. 2. New opacity in the left perihilar region as well as mild increased opacity at the lung bases. 3. Apparent small bilateral effusions. 4. Mid inspiratory study. Electronically signed by: Patrick Ying MD 08/02/2017 9:30 PM EDT
[2017-08-03] VITALS (42 sets, daily range): BP systolic 106–155; BP diastolic 36–60; PULSE 70–101; RESP 12–24; TEMP 97.9–101; O2SAT 88–100
[2017-08-03] MEDS: NOREPINEPHRINE 4 MG/D5W 250 ML IV PRN ×2 (00:56→13:17)
[2017-08-03 00:59] LABS: HEMATOCRIT 33.8 % (35.0-46.0); HEMOGLOBIN 11.2 GM/DL (11.6-15.3)
[2017-08-03] MEDS: SODIUM BICARBONATE 8.4% INJ 150 MEQ in DEXTROSE 5% IN WATE 1000ML INJ 850 ML IV SCH ×2 (03:43)
[2017-08-03] MEDS: CHLORHEXIDINE GLUCONATE 2 % 1 PACK (2 CLOTHS) TOP SCH (04:00)
[2017-08-03 04:09] LABS: AUTOMATED NEUTROPHIL # 21.7 TH/MM3 (1.8-7.7); BASOPHIL % 0.2 % (0.0-2.0); HEMATOCRIT 32.8 % (35.0-46.0); LYMPH % 2.1 % (9.0-44.0); LYMPHOCYTE # 0.5 TH/MM3 (1.0-4.8); MEAN CELL VOLUME 86.8 FL (80.0-100.0); MEAN CORPUSCULAR HGB CONC 33.4 % (32.0-36.0); MEAN PLATELET VOLUME 9.5 FL (7.0-11.0); MONO % 5.2 % (0.0-8.0); MONOCYTE # 1.2 TH/MM3 (0-0.9); NEUT % 92.5 % (16.0-70.0); PLATELET COUNT 231 TH/MM3 (150-450); RED BLOOD COUNT 3.78 MIL/MM3 (4.00-5.30); RED CELL DISTRIBUTION WIDTH 13.9 % (11.6-17.2); WHITE BLOOD COUNT 23.4 TH/MM3 (4.0-11.0)
[2017-08-03 04:58] LABS: ALBUMIN 1.8 GM/DL (3.4-5.0); BICARBONATE 25.2 MEQ/L (21.0-32.0); CALCIUM 6.4 MG/DL (8.5-10.1); CREATININE 3.63 MG/DL (0.50-1.00); MAGNESIUM 1.4 MG/DL (1.5-2.5); PHOSPHORUS 2.9 MG/DL (2.5-4.9); RANDOM VANCOMYCIN 8.8 COMMENT; TOTAL BILIRUBIN ADULT 0.7 MG/DL (0.2-1.0); TOTAL PROTEIN 5.6 GM/DL (6.4-8.2); TROPONIN I 0.27 NG/ML (0.02-0.05)
[2017-08-03 05:01] LABS: CALCIUM-PROTEIN CORRECTED 7.1 MG/DL (8.5-10.1)
[2017-08-03] MEDS: AZTREONAM INJ 2,000 MG in SODIUM CHLORIDE 0.9% INJ 100 ML IV SCH ×3 (05:23→21:35)
[2017-08-03] MEDS: metroNIDAZOLE 500 MG INJ 100 ML IV SCH ×3 (05:23→21:35)
[2017-08-03] MEDS: GEMFIBROZIL 600 MG TAB PO SCH ×2 (05:24→16:00)
[2017-08-03] MEDS ORDERED: CALCIUM GLUCONATE INJ 2 GM in SODIUM CHLORIDE 0.9% INJ 100 ML IV ONE ×2 (05:30→22:45)
[2017-08-03] MEDS ORDERED: MAGNESIUM SULFATE 4 GM PREMIX 100 ML IV ONE (05:30)
[2017-08-03] MEDS ORDERED: MAGNESIUM SULFATE 4 GM/NS 100 ML IV ONE ×2 (05:45)
[2017-08-03] MEDS: POTASSIUM CHLOR 40 MEQ PREMIX 100 ML IV SCH ×3 (06:32→23:48)
[2017-08-03] MEDS ORDERED: MAGNESIUM SULFATE 1 GM PREMIX 100 ML IV SCH (08:45)
[2017-08-03] MEDS: INSULIN ASPART SUPPLEMENTAL SCALE SQ SCH ×4 (08:54→21:00)
[2017-08-03] MEDS: DOCUSATE SODIUM 50 MG/SENNA 8.6 MG TAB PO SCH ×2 (09:00→21:00)
[2017-08-03] MEDS: SERTRALINE HCL 100 MG TAB PO SCH (09:00)
[2017-08-03] MEDS ORDERED: POTASSIUM CHLOR 20 MEQ PREMIX 100 ML IV SCH (09:00)
--- NOTE | 2017-08-03 09:08 | HHI.CCPN ---
Subjective Remarks/Hospital Course 76-year-old pleasantly demented female, [facility] resident. The patient was noted earlier today to have a sudden onset of right gaze, as well as right- sided weakness. She was also found to be very hypotensive. Initial blood pressure 60/20, which responded to fluids and increased to 90/60. She presented to the hospital as a stroke-alert. The MRI of brain obtained in the emergency department showed only questionable tiny subacute lacunar infarcts posterior periventricular white matter. Moderate to severe chronic ischemic changes in the periventricular white matter. Remote left parietal lobe infarct. The CT of the abdomen and pelvis however shows the abnormal pancreas with enlargement and peripancreatic inflammation and edema characteristic of acute pancreatitis. Cholelithiasis without pancreatic duct dilatation. Subjective: 08/02: Afebrile. Patient continues to have severe metabolic acidosis sodium bicarbonate infusion continued. Patient on nonrebreather continuing to be weaned down . Patient bolused with 500 cc normal saline 1 this a.m.. Oliguric 150 cc urine output in the last 12 hours. Unable to assess the amount of IV fluid patient was given in the ED and overnight. No hematemesis or melena this a.m. Patient continues on Protonix twice daily. Patient currently on nonrebreather mask currently being weaned down O2 saturation 100% though PaO2 is 155. Triglycerides are pending. MRI is pending. 08/03: Afebrile. Overnight patient became hemodynamically unstable, central line placed patient currently on Levophed 12 mcgs/min. The patient FIO2 requirements are increasing, intubation planned. Echo report last night showed RV mildly dilated with RV systolic function mildly decreased. Concern for possible PE, however patient not a candidate in the setting of GI Bleed. Hgb and Hct trend stable. Metabolic acidosis resolved with NaHCO3 infusion, now decreased. Patient 's SVV continued elevation and BUN 77. Pt bolused IVF's this am. UOP, creatinine slightly improved overnight. Electrolytes being replaced and closely monitored. Discussed with GI AKI Spence after her discussion with Dr. Sanchez this am plan is for MRCP today by GI or Invasive Radiology. Objective Vital Signs Date Time Temp Pulse Resp B/P (MAP) Pulse Ox O2 Delivery O2 Flow Rate FiO2 08/03/17 06:00 96 08/03/17 03:00 97.9 24 123/58 (79) 95 124/47 (72) 08/01/17 20:30 Non-Rebreather 15.00 08/01/17 19:15 100 Intake and Output 08/03/17 08/03/17 08/04/17 08:00 16:00 00:00 Intake Total 1100 ml Output Total 1000 ml Balance 100 ml Result Diagram: 08/03/17 0355 08/03/17 0355 Other Results Laboratory Tests Test 08/03/17 07:49 Blood Gas Puncture Site ART LINE Blood Gas Patient Temperature 98.6 Blood Gas HCO3 26 mmol/L (22-26) Blood Gas Base Excess 1.5 mmol/L (-2-2) Blood Gas Oxygen Saturation 91 % (90-100) Arterial Blood pH 7.38 (7.380-7.420) Arterial Blood Partial Pressure CO2 46 mmHg (38-42) Arterial Blood Partial Pressure O2 66 mmHg (61-120) Arterial Blood Oxygen Content 14.0 Vol % (12.0-20.0) Arterial Blood Carboxyhemoglobin 1.3 % (0-4) Arterial Blood Methemoglobin 1.4 % (0-2) Blood Gas Hemoglobin 10.9 G/DL (12.0-16.0) Oxygen Delivery Device Venti Mask Blood Gas Liter Flow 6 L/M Blood Gas Inspired Oxygen 50 % Imaging Last [address] 08/01/17 Signed Impressions: CONCLUSION: 1. No acute intracranial abnormality is identified. 2. However, there is encephalomalacia in the left parietal region and there is generalized atrophy with severe periventricular white matter low-attenuation c haracteristic of chronic microvascular ischemia. Chest X-Ray 08/01/17 Signed Impressions: CONCLUSION: Underinflated examination with small bilateral pleural effusions with compressi ve atelectasis at the lung bases. Carotid Artery Ultrasound 08/01/17 Signed Impressions: CONCLUSION: 1. Right Internal Carotid Artery: Findings indicate <50% stenosis. 2. Left Internal Carotid Artery: Findings indicate <50% stenosis. Abdomen/Pelvis CT 08/01/17 Signed Impressions: CONCLUSION: 1. The pancreas is abnormal with enlargement and peripancreatic inflammation a nd edema characteristic of acute pancreatitis. There is a small volume of free fluid in the abdomen and pelvis. 2. Cholelithiasis without pancreatic duct dilatation. 3. There is mild wall thickening of the inferior rectum with associated presac ral edema. 4. Small bilateral pleural effusions with associated compressive atelectasis. 5. There is a compression deformity of uncertain chronicity involving L3 and c ompression deformity with sclerosis involving T9. Objective Remarks GENERAL: This is a well-nourished, well-developed elderly female patient, in mild distress currently on FiO2 of 50% Ventimask SKIN: No rashes, ecchymoses or lesions. Cool and dry. HEAD: Atraumatic. Normocephalic. No temporal or scalp tenderness. EYES: Pupils equal round and reactive. Extraocular motions intact. No scleral icterus. No injection or drainage. ENT: Nose without bleeding, purulent drainage or septal hematoma. Throat without erythema, tonsillar hypertrophy or exudate. Uvula midline. Airway patent. NECK: Trachea midline. No JVD or lymphadenopathy. Supple, nontender, no meningeal signs. CARDIOVASCULAR: Regular rate and rhythm with soft murmurs, no gallops, no rubs. Currently on Levophed infusion RESPIRATORY: Poor inspiratory effort, diminished at bases. Bilateral chest excursion . Nonproductive cough. On Ventimask at 50% GASTROINTESTINAL: Abdomen soft, non-tender, nondistended. No hepato-splenomegaly , or palpable masses. No guarding. MUSCULOSKELETAL: Extremities without clubbing, cyanosis, or edema. No joint tenderness, effusion, or edema noted. No calf tenderness. Negative Homans sign bilaterally. NEUROLOGICAL: Awakes to voice. Weak to upper extremities and lower extremities. Doesn't follow commands consistently. No focal deficits. Date of Insertion: Aug 02, 2017 Date of Insertion: Aug 03, 2017 A/P Assessment and Plan Plan by systems: Neurologic: Acute left lacunar stroke History of previous CVA Schizophrenia Depression Schizophrenia 08/02 MRI-moderate to severe ischemic changes. Tiny subacute lacunar infarcts. Remote left parietal lobe infarct 08/02 MRA brain-negative 08/02-CT brain-no acute abnormality Carotids-<50% stenosis Patient is followed by neurology-Dr. Michelle Not a candidate for TPA also due to acute GI bleed Risperidone-on hold Zoloft-on hold Respiratory: Acute hypoxemic respiratory insufficiency Maintain O2 saturation greater than 92% ABG this a.m. PaO2 66 on 50%ventimask, tachypneic 08/03-intubation Duo nebs every 6 hours scheduled every 2 hours as needed Ventilator bundle 08/02 CT-small bilateral pleural effusions bases Obtain d-dimer -suspicion for PE given the echo results-unable to do CT angiogram secondary to elevated creatinine (3.6) and currently patient not a candidate for anticoagulation due to GI bleed Obtain bilateral ultrasounds lower extremities Cardiovascular: Hypovolemic shock Apply Flowtrach-monitor parameters. Patient now intubated Monitor CVP Bolus 1.5 L, in the ED. Patient bolus 500 cc IV now. Patient received 2 units packed red blood cells secondary to blood loss Maintain MAP greater than 65mmhg-norepinephrine 12mcgs/min 08/02 echo-right ventricle mildly dilated. Right ventricular systolic function mildly decreased. EF 55-60% 08/03-troponin increased 0.03->0.27. Possibly secondary to acute kidney injury, infection ? Will continue to trend Consult cardiology Renal: Maintain Mary catheter -- Strict I/Os FEN/GI: Acute pancreatitis-gallstone Dyslipidemia GI bleed Elevated liver enzymes Protein calorie malnutrition Bolus in ED with approximately 1500 cc normal saline. 500 cc normal saline IV 2 now Sodium bicarbonate infusion 150 cc/hr Broad-spectrum antibiotics Continue aggressive fluid Gemfibrozil 08/01 GI has been consulted Protonix twice daily Rectal wall thickening on the CT Protonix IV twice daily In ED patient was noted to have bright red blood per rectum 08/02- 1700 S/P MRI-at least one stone in the common bile duct. Stat consult to gastroenterology. I telephoned and spoke with Dr. Sanchez made him aware of patient's result. Further management per gastroenterology.08/03: I discussed with Melisa Megan her discussion with Dr. Sanchez plan for MRCP today by IR 08/03-planned MRCP Lipase downtrending [id number]->443. Liver enzymes downtrending Albumin 1.8 Heme/ID: Acute blood loss anemia 2/2 GI bleed Persistent leukocytosis Monitor CBC Monitor H&H Transfuse for hemoglobin less than 7 Patient transfused 2 units packed red blood cells in the ED (08/01) Endocrine: Hyperglycemia Obtain hemoglobin A1c Glucose monitoring per ICU protocol. Low-dose regimen -- SSI Prophylaxis: GI Prophylaxis Protonix BID DVT Prophylaxis -- SCDs -Hold pharmacological DVT prophylaxis due to acute GI bleed Lines: Peripheral IVs 3. Central line if indicated Dispo: my billing statement This patient remains critically ill with one or more organ systems which are or may become a threat to life. I have spent in excess of 35 minutes discontinuously in the care and management of this patient. This time is exclusive of procedures, and includes, but is not limited to, evaluation of the patient, review of the medical record, discussions with family, consultants, nursing staff, or respiratory therapy, and documentation in the medical record. Physician Marcelina Levin MD Aug 03, 2017 09:08
--- NOTE | 2017-08-03 09:15 | HHI.GIFU ---
Subjective Remarks Pt resting in bed, now on 7 L simple mask On Levophed for blood pressure report No BMs documented over night (Lorna Farrell) Objective Vitals I&O Vital Signs Date Time Temp Pulse Resp B/P (MAP) Pulse Ox O2 Delivery O2 Flow Rate FiO2 08/03/17 06:00 96 08/03/17 04:00 96 08/03/17 03:00 97.9 94 24 123/58 (79) 95 124/47 (72) 08/03/17 02:00 91 08/03/17 00:56 97 126/42 08/03/17 00:00 101 08/02/17 23:00 98.2 95 19 111/58 (75) 96 115/39 (64) 08/02/17 22:00 99 08/02/17 20:00 93 08/02/17 19:45 93 75/37 08/02/17 19:00 97.8 92 20 102/51 (68) 95 115/36 (62) 08/02/17 18:00 93 08/02/17 16:00 97.6 94 34 112/53 (72) 96 08/02/17 16:00 84 08/02/17 14:00 90 08/02/17 12:00 81 08/02/17 12:00 98.4 91 31 123/56 (78) 95 08/02/17 10:00 87 I/O 08/02/17 08/02/17 08/02/17 08/03/17 08/03/17 08/03/17 07:00 15:00 23:00 07:00 15:00 23:00 Intake Total 1025 ml 425 ml 5120 ml 1100 ml Output Total 150 ml 500 ml 1000 ml Balance 875 ml 425 ml 4620 ml 100 ml Intake Oral 0 ml IV Total 550 ml 5120 ml 1100 ml Packed Cells 400 ml 400 ml Blood Product IV Normal Saline Flush 75 ml 25 ml Output Urine Total 150 ml 500 ml 1000 ml # Bowel Movements 0 0 0 Laboratory Laboratory Tests Test 08/02/17 13:10 08/02/17 17:30 08/02/17 18:14 08/03/17 00:48 Hemoglobin 11.7 11.1 11.2 Hematocrit 34.8 33.1 33.8 Blood Urea Nitrogen 105 Creatinine 5.45 Random Glucose 159 Total Protein 6.1 Albumin 2.1 Calcium Level 6.9 Phosphorus Level 6.1 Magnesium Level 1.6 Alkaline Phosphatase 79 Aspartate Amino Transf (AST/SGOT) 95 Alanine Aminotransferase (ALT/SGPT) 269 Total Bilirubin 1.1 Sodium Level 137 Potassium Level 3.4 Chloride Level 104 Carbon Dioxide Level 10.6 Anion Gap 22 Estimat Glomerular Filtration Rate 8 Protein Corrected Calcium 7.4 Troponin I 0.03 Triglycerides Level 196 Cholesterol Level 74 LDL Cholesterol 27 HDL Cholesterol 7.7 Cholesterol/HDL Ratio 9.61 Amylase Level 420 Lipase 773 Urine Eosinophils NONE SEEN Urine Random Creatinine 55.2 Urine Random Sodium 57 Test 08/03/17 03:55 08/03/17 07:49 White Blood Count 23.4 Red Blood Count 3.78 Hemoglobin 11.0 Hematocrit 32.8 Mean Corpuscular Volume 86.8 Mean Corpuscular Hemoglobin 29.0 Mean Corpuscular Hemoglobin Concent 33.4 Red Cell Distribution Width 13.9 Platelet Count 231 Mean Platelet Volume 9.5 Neutrophils (%) (Auto) 92.5 Lymphocytes (%) (Auto) 2.1 Monocytes (%) (Auto) 5.2 Eosinophils (%) (Auto) 0.0 Basophils (%) (Auto) 0.2 Neutrophils # (Auto) 21.7 Lymphocytes # (Auto) 0.5 Monocytes # (Auto) 1.2 Eosinophils # (Auto) 0.0 Basophils # (Auto) 0.0 CBC Comment AUTO DIFF Blood Urea Nitrogen 77 Creatinine 3.63 Random Glucose 244 Total Protein 5.6 Albumin 1.8 Calcium Level 6.4 Phosphorus Level 2.9 Magnesium Level 1.4 Alkaline Phosphatase 91 Aspartate Amino Transf (AST/SGOT) 61 Alanine Aminotransferase (ALT/SGPT) 173 Total Bilirubin 0.7 Sodium Level 138 Potassium Level 2.2 Chloride Level 101 Carbon Dioxide Level 25.2 Anion Gap 12 Estimat Glomerular Filtration Rate 12 Lactic Acid Level 1.1 Protein Corrected Calcium 7.1 Troponin I 0.27 Lipase 422 Random Vancomycin Level 8.8 Blood Gas Puncture Site ART LINE Blood Gas Patient Temperature 98.6 Blood Gas HCO3 26 Blood Gas Base Excess 1.5 Blood Gas Oxygen Saturation 91 Arterial Blood pH 7.38 Arterial Blood Partial Pressure CO2 46 Arterial Blood Partial Pressure O2 66 Arterial Blood Oxygen Content 14.0 Arterial Blood Carboxyhemoglobin 1.3 Arterial Blood Methemoglobin 1.4 Blood Gas Hemoglobin 10.9 Oxygen Delivery Device Venti Mask Blood Gas Liter Flow 6 Blood Gas Inspired Oxygen 50 Date/Time Source Procedure Growth Status 08/01/17 22:05 Blood Peripheral Aerobic Blood Culture - Preliminary NO GROWTH IN 1 DAY Resulted 08/01/17 22:05 Blood Peripheral Anaerobic Blood Culture - Preliminary NO GROWTH IN 1 DAY Resulted 08/01/17 21:10 Urine Catheterized Urine Urine Culture - Preliminary NO GROWTH IN 24 HOURS. Resulted Imaging Last Impressions Cholangiopancreatography MRI 08/02/17 Signed Impressions: CONCLUSION: 1. Gallstones with at least one stone in the common duct 2. Pancreas poorly visualized because of motion. 3. Fluid present in the lesser sac consistent with pancreatitis. Chest X-Ray 08/02/17 Signed Impressions: CONCLUSION: 1. Interval placement of right central venous catheter with no pneumothorax. 2. New opacity in the left perihilar region as well as mild increased opacity at the lung bases. 3. Apparent small bilateral effusions. 4. Mid inspiratory study. Head Magnetic Resonance Angiography 08/01/17 Signed Impressions: CONCLUSION: 1. Negative MRA Cow ([place]) non contrast. Head CT 08/01/17 Signed Impressions: CONCLUSION: 1. No acute intracranial abnormality is identified. 2. However, there is encephalomalacia in the left parietal region and there is generalized atrophy with severe periventricular white matter low-attenuation c haracteristic of chronic microvascular ischemia. Carotid Artery Ultrasound 08/01/17 Signed Impressions: CONCLUSION: 1. Right Internal Carotid Artery: Findings indicate <50% stenosis. 2. Left Internal Carotid Artery: Findings indicate <50% stenosis. Brain MRI 08/01/17 Signed Impressions: CONCLUSION: 1. Questionable tiny subacute lacunar infarcts posterior periventricular white matter. Moderate to severe chronic ischemic changes in the periventricular whi te matter. Remote left parietal lobe infarct. Abdomen/Pelvis CT 08/01/17 Signed Impressions: CONCLUSION: 1. The pancreas is abnormal with enlargement and peripancreatic inflammation a nd edema characteristic of acute pancreatitis. There is a small volume of free fluid in the abdomen and pelvis. 2. Cholelithiasis without pancreatic duct dilatation. 3. There is mild wall thickening of the inferior rectum with associated presac ral edema. 4. Small bilateral pleural effusions with associated compressive atelectasis. 5. There is a compression deformity of uncertain chronicity involving L3 and c ompression deformity with sclerosis involving T9. Physical Exam HEENT: Normocephalic; atraumatic CHEST: Tachypneic, shallow, 7 L simple mask CARDIAC: RRR ABDOMEN: Distended, soft, bowel sounds active SKIN: Normal; no rash; no jaundice. SOFTWARE SALES: Lethargic (Lorna Farrell) Assessment and Plan Plan Assessment: - Rectal bleeding- Bloody BM witness in ER, pt received 2 U PRBCs H/H currently 11.7/35.2- pt presented to with right sided gaze and weakness, seen by neurology who reports not a candidate for TPA given bloody stools. Also recommended withholding anticoagulants or antiplatelets because of this. Pt unable to provide history, dementia and stroke- no previous records revealing history of GIB, colonoscopy, or EGD. CT reveals mild wall thickening of the inferior rectum with associated presacral edema - Pancreatitis- [id number] with elevated LFTs and metabolic acidosis (08/01) AST-92 ALT-350 Alk phos-89 T bili-0.9 CT abdomen and pelvis WO IV contrast --> The pancreas is abnormal with enlargement and peripancreatic inflammation and edema characteristic of acute pancreatitis. There is a small volume of free fluid in the abdomen and pelvis. Cholelithiasis without pancreatic duct dilatation. ? Biliary pancreatitis, ? medication induced (Lisinopril, Zoloft, Risperidone) Lipid panel pending - R sided gaze and R sided weakness- neurology following- no anticoagulants given reports of GIB (08/03) Pt now on Levophed for blood pressure support. Increase in leukocytosis noted, on Aztreonam and Flagyl. Also on 7 L simple mask. No BMs documented overnight, H/H remains stable. MRCP noted --> Gallstones with at least one stone in the common duct. Pancreas poorly visualized because of motion. Fluid present in the lesser sac consistent with pancreatitis. LFTs trending down AST-61 ALT-173 Alk phos-91 T bili-0.7 Lipase trending down- 422 Consult placed to IR for percutaneous transhepatic biliary drain, labs trending down revealing no obstruction, no need for STAT consult Plan: Pt too unstable for ERCP at this time Consult placed to IR for percutaneous transhepatic biliary drain Monitor LFTs, lipase Continue abx Supportive care No continued report of rectal bleeding, ? Flex sig vs colonoscopy when more stable or if continued rectal bleeding Further recommendations based on clinical course and results of above Pt has been seen and examined by myself and Dr. Sanchez and this note is written on his behalf (Lorna Farrell) Physician Comments Seen with lorna plan as above. Stone likely passed as seen in LFT's trending down, sepsis unlikely related to cholangitis. Will follow up with you. (Trinh Sanchez MD) Lorna Farrell Aug 03, 2017 09:15 Trinh Sanchez MD Aug 03, 2017 17:55
[2017-08-03 09:27] LABS: BANDS 9 % (0-6); LYMPHOCYTES 1 % (9-44); MONOCYTES 4 % (0-8); NEUTROPHIL # MANUAL DIFF 22.2 TH/MM3 (1.8-7.7); POLYS (SEG NEUTROPHILS) 86 % (16-70)
[2017-08-03] MEDS ORDERED: SUCCINYLCHOLINE CHLORIDE 100 MG/5 ML SYRINGE IV PUSH ONE (09:30)
[2017-08-03] MEDS ORDERED: ETOMIDATE 40 MG/20 ML VIAL ONE (09:38)
[2017-08-03] MEDS ORDERED: SUCCINYLCHOLINE CHLORIDE 200 MG/10 ML VIAL ONE (09:39)
[2017-08-03] MEDS ORDERED: ETOMIDATE 20 MG/10 ML VIAL IV PUSH ONE (10:00)
[2017-08-03] MEDS ORDERED: SODIUM CHLOR 0.9% 1000 ML INJ 1,000 ML IV ONE (10:15)
[2017-08-03] MEDS ORDERED: VANCOMYCIN 1,000 MG/NS 250 ML IV ONE ×2 (10:30)
[2017-08-03] MEDS: fentaNYL DRIP 250 ML IV PRN (10:45)
--- NOTE | 2017-08-03 10:49 | PD.PROCEDR ---
Procedure Note Procedure Endotracheal Intubation Diagnosis: Acute hypoxemic respiratory failure Indications: Same Consent: Emergent Anesthesia: see MAR Description of the Procedure: The patient was positioned in the sniffing position. Pre-oxygenation was performed using a 100% BVM. Anesthesia was induced via rapid sequence. A glide scope 3 was used for laryngoscopy and a Grade 1 view was obtained. Noted large amount of mucoid dried material over vocalis inlet. A 8.0 cuffed endotracheal tube was inserted atraumatically through the vocal cords. Confirmation of correct endotracheal tube placement was made by equal and bilateral breath sounds and colorimetric CO2 detection. The endotracheal tube was secured at 22 cm at the teeth. There were no immediate complications noted. The patient remained hemodynamically stable throughout the procedure. A chest x-ray has been ordered. I personally performed the procedure. Marcelina Mahoney MD Aug 03, 2017 10:49
--- NOTE | 2017-08-03 11:21 | RADRPT ---
EXAM DATE: 08/03/2017 11:07 AM EDT AGE/SEX: 76 years / Female INDICATIONS: Post intubation. CLINICAL DATA: This is the patient's subsequent encounter. Patient reports that signs and symptoms h ave been present for 2 days and indicates a pain score of Nonresponsive. MEDICAL/SURGICAL HISTORY: None. Hysterectomy. COMPARISON: [facility] – [place]ST SINGLE AP, 08/02/2017. . FINDINGS: AP semiupright portable view of the chest demonstrate interval placement of an endotracheal tube with the tip at the level of the clavicles. There is nasogastric tube being with the proximal port below the level of the diaphragm. The lungs are significantly hypoinflated but better aerated as compared t o the prior exam. Right-sided central line with the tip overlying the distal SVC. Left basilar atelec tasis versus pleural fluid. CONCLUSION: The lungs are significantly hypoinflated but better aerated as compared to the prior exam with interv al intubation. Stable right-sided central line. Nasogastric tubing with the proximal port below the l evel the diaphragm. Electronically signed by: Janene Weinstein MD 08/03/2017 11:19 AM EDT
[2017-08-03] MEDS: SODIUM CHLORIDE 0.9% FLUSH 10 ML FLUSH IV FLUSH SCH ×2 (11:40→21:33)
[2017-08-03] MEDS: PANTOPRAZOLE SODIUM 40 MG VIAL IV PUSH SCH (11:50)
--- NOTE | 2017-08-03 13:36 | RADRPT ---
EXAM DATE: 08/03/2017 1:28 PM EDT AGE/SEX: 76 years / Female INDICATIONS: Thrombosis. CLINICAL DATA: This is the patient's initial encounter. Patient reports that signs and symptoms have been present for 1 day and indicates a pain score of Nonresponsive. MEDICAL/SURGICAL HISTORY: . Schizophrenia. CVA. Breast cancer. Mastectomy, bilateral. Lumpec kannan. Hysterectomy. COMPARISON: No prior [facility] exams available for comparison. No external comparison. TECHNIQUE: Venous ultrasound of both lower extremities was performed from the inguinal ligament to t he proximal calf. Real-time, color Doppler and spectral tracing, compression and augmentation techni ques were used. FINDINGS: Right Leg: Extensive and mostly occlusive venous thrombosis noted of the right lower extremity from the iliac vein and extending below the knee primarily into the posterior tibial vein. Nonocclusive th rombus seen of the right peroneal vein. Left Leg: There is normal compressibility of the deep venous system from the inguinal region to the proximal calf. No echogenic clot is seen in the lumen of the common femoral, femoral, popliteal, and posterior tibial veins. There is a normal response of the venous system to proximal and distal augm entation and respiration. CONCLUSION: 1. Extensive DVT of the right lower extremity. 2. No venous thrombosis of the left lower extremity. Electronically signed by: Jose Gan MD 08/03/2017 1:35 PM EDT
--- NOTE | 2017-08-03 13:36 | PD.CONS ---
HPI Consult Requested By Reason for Consult Acute renal insufficiency. Primary Care Physician Unknown History of Present Illness 76-year-old female with a history of dementia, schizophrenia, admitted to this institution on 08/01/17 with a blood pressure of 60/20, rectal bleeding, pancreatitis. Patient was acidotic with a total CO2 of 10.6. Has been on Levophed for inotropic support. Previous creatinine level back in November last year was 0.68. On presentation had a creatinine was 5.45. Has been hydrated aggressively on a sodium bicarbonate drip and creatinine level today was 3.63 with improved urinary output. CT scan showed no evidence of hydronephrosis. There were changes consistent with pancreatitis however. Patient presently too unstable to undergo ERCP per GI. Echocardiogram revealing an ejection fraction of 55-60%. Review of Systems ROS Limitations: Clinical Condition, Altered Mental Status Past Family Social History Allergies: Coded Allergies: aspirin (Unverified Allergy, Severe, 10/16/16) PT HAS TINNITUS penicillin G (Unverified Allergy, Severe, 10/16/16) Past Medical History Dementia Schizophrenia Gastroesophageal reflux disease Degenerative joint disease. Past Surgical History Hysterectomy. Reported Medications Reported Meds & Active Scripts Active Tramadol (Tramadol HCl) 50 Mg Tab 50 Mg PO TID 7 Days Reported Gemfibrozil 600 Mg Tab 600 Mg PO BIDAC Take 30 minutes prior to breakfast and dinner. Zoloft (Sertraline HCl) 100 Mg Tab 100 Mg PO DAILY Risperidone 2 Mg Tab 2 Mg PO HS Risperidone 0.5 Mg Tab 0.5 Mg PO HS Polyethylene Glycol 3350 Powder (Polyethylene Glycol) 17 Gram Pow 17 Gm PO DAILY Lisinopril-Hctz 10-12.5 Mg Tab 1 Tab PO DAILY Active Ordered Medications Current Medications Sodium Chloride 1,000 ml @ 70 mls/hr [id number] ONCE IV ; Start 08/01/17 at 19:23 ; Stop 08/01/17 at 21:52; Status DC Sodium Chloride 500 ml @ 500 mls/hr BOLUS ONCE IV Last administered on at 19:30; Start 08/01/17 at 19:30; Stop 08/01/17 at 20:29; Status DC Sodium Chloride 250 ml @ 15 mls/hr ONCE ONCE IV ; Start 08/01/17 at 19:45; Stop 08/01/17 at 21:53; Status DC Sodium Chloride 1,000 ml @ 999 mls/hr BOLUS ONCE IV Last administered on 08/01at 19:45; Start 08/01/17 at 19:45; Stop 08/01/17 at 20:45; Status DC Sodium Chloride (NS Flush) 2 ml BID IV FLUSH ; Start 08/01/17 at 21:00; Stop at 21:20; Status DC Sodium Chloride (NS Flush) 2 ml UNSCH PRN IV FLUSH FLUSH AFTER USING IV ACCESS ; Start 08/01/17 at 20:00; Stop 08/01/17 at 21:20; Status DC Insulin Aspart (NovoLOG SUPPLEMENTAL SCALE) 1 ACHS SQ Last administered on at 13:06; Start 08/01/17 at 21:00 Dextrose (D50w (Vial) Inj) 50 ml UNSCH PRN IV PUSH HYPOGLYCEMIA-SEE COMMENTS; Start 08/01/17 at 20:00 Glucagon (Glucagon Inj) 1 mg UNSCH PRN OTHER HYPOGLYCEMIA-SEE COMMENTS; Start 08/01/17 at 20:00 Vancomycin HCl 1000 mg/Sodium Chloride 250 ml @ 250 mls/hr ONCE ONCE IV Last administered on 08/01/17at 20:37; Start 08/01/17 at 20:15; Stop 08/01/17 at 21:14 ; Status DC Cefepime HCl 2000 mg/Sodium Chloride 100 ml @ 200 mls/hr ONCE ONCE IV Last administered on 08/01/17at 20:31; Start 08/01/17 at 20:15; Stop 08/01/17 at 20:44 ; Status DC Acetaminophen (Tylenol Supp) 650 mg ONCE ONCE RECTAL Last administered on 08/01at 20:37; Start 08/01/17 at 20:15; Stop 08/01/17 at 20:16; Status DC Sodium Chloride 1,000 ml @ 999 mls/hr BOLUS ONCE IV Last administered on at 11:30; Start 08/01/17 at 20:45; Stop 08/01/17 at 21:46; Status DC Sodium Chloride 250 ml @ 15 mls/hr ONCE ONCE IV ; Start 08/01/17 at 20:45; Stop 08/02/17 at 13:24; Status DC Pantoprazole Sodium 80 mg/ Sodium Chloride 35 ml @ 420 mls/hr Q5M ONCE IV Last administered on 08/01/17at 20:39; Start 08/01/17 at 20:39; Stop 08/01/17 at 20:43; Status DC Pantoprazole Sodium 80 mg/ Sodium Chloride 100 ml @ 10 mls/hr Q10H IV ; Start 08/01/17 at 20:39; Stop 08/01/17 at 21:20; Status DC Gemfibrozil (Lopid) 600 mg BIDAC PO Last administered on 08/02/17at 07:00; Start 08/02/17 at 07:00 Risperidone (risperDAL) 0.5 mg HS PO ; Start 08/01/17 at 22:00 Sertraline HCl (Zoloft) 100 mg DAILY PO Last administered on 08/02/17at 13:18; Start 08/02/17 at 09:00 Risperidone (risperDAL) 2 mg HS PO ; Start 08/01/17 at 22:00; Status Future Hold Sodium Chloride 1,000 ml @ 999 mls/hr BOLUS ONCE IV ; Start 08/01/17 at 21:15 ; Stop 08/01/17 at 22:15; Status DC Sodium Chloride 1,000 ml @ 84 mls/hr [id number] IV ; Start 08/01/17 at 21:09; Stop 08/01/17 at 22:21; Status DC Sodium Chloride (NS Flush) 2 ml UNSCH PRN IV FLUSH FLUSH AFTER USING IV ACCESS ; Start 08/01/17 at 21:15 Sodium Chloride (NS Flush) 2 ml BID IV FLUSH Last administered on 08/03/17at 11: 40; Start 08/02/17 at 09:00 Acetaminophen (Tylenol) 650 mg Q6H PRN PO PAIN 1-5 AND/OR FEVER >101F; Start at 21:15 Hydromorphone HCl (Dilaudid Pf Inj) 1 mg Q4H PRN IV PUSH PAIN SCALE 6 TO 10 Last administered on 08/02/17at 04:11; Start 08/01/17 at 21:15 Famotidine (Pepcid Inj) 20 mg Q12HR IV PUSH ; Start 08/02/17 at 09:00; Stop at 09:00; Status DC Ondansetron HCl (Zofran Inj) 4 mg Q6H PRN IV PUSH NAUSEA OR VOMITING; Start at 21:15 Temazepam (Restoril) 15 mg HS PRN PO INSOMNIA; Start 08/01/17 at 21:15; Status Future Hold Albuterol/ Ipratropium (Duoneb Neb) 1 ampule Q2HR NEB PRN INH WHEEZING; Start 08/01/17 at 21:15; Stop 08/03/17 at 10:50; Status DC Enoxaparin Sodium (Lovenox Inj) 40 mg Q24H SQ ; Start 08/01/17 at 22:00; Stop at 23:48; Status DC Miscellaneous Information ([facility]) 1 [id number] ; Start at 21:15 Chlorhexidine Gluconate (Chlorhexidine 2% Cloth) 3 pack Taper DAILY@04 TOP Last administered on 08/03/17at 04:00; Start 08/02/17 at 04:00; Stop 07/29/18 at 03 :59 Chlorhexidine Gluconate (Chlorhexidine 2% Cloth) 3 pack UNSCH PRN TOP HYGIENIC CARE; Start 08/01/17 at 21:15 Senna/Docusate Sodium (Guillermina-Colace) 1 tab BID PO Last administered on 08/02/17at 13:18; Start 08/02/17 at 09:00 Magnesium Hydroxide (Milk Of Magnesia Liq) 30 ml Q12H PRN PO Mild constipation ; Start 08/01/17 at 21:15 Sennosides (Senokot) 17.2 mg Q12H PRN PO Moderate constipation; Start 08/01/17 at 21:15 Bisacodyl (Dulcolax Supp) 10 mg DAILY PRN RECTAL SEVERE CONSITIPATION; Start at 21:15 Lactulose (Lactulose Liq) 30 ml DAILY PRN PO SEVERE CONSITIPATION; Start at 21:15 Sodium Chloride (NS Flush) 2 ml UNSCH PRN IV FLUSH FLUSH AFTER USING IV ACCESS ; Start 08/01/17 at 21:15; Status UNV Sodium Chloride (NS Flush) 2 ml BID IV FLUSH ; Start 08/02/17 at 09:00; Status UNV Vancomycin HCl 1000 mg/Sodium Chloride 250 ml @ 250 mls/hr Q12H IV ; Start at 21:15; Status UNV Pharmacy Profile Note 0 ml @ 0 mls/hr UNSCH OTHER ; Start 08/01/17 at 21:15 Aztreonam 2000 mg/ Sodium Chloride 100 ml @ 200 mls/hr Q8H IV Last administered on 08/03/17at 05:23; Start 08/01/17 at 22:00 Metronidazole 100 ml @ 100 mls/hr Q8H IV Last administered on 08/03/17at 05:23; Start 08/01/17 at 22:00 Sodium Chloride 1,000 ml @ 1,000 mls/hr Q1H ONCE IV ; Start 08/01/17 at 21:09; Stop 08/01/17 at 22:08; Status DC Sodium Chloride 1,000 ml @ 1,000 mls/hr Q1H ONCE IV ; Start 08/01/17 at 21:09; Stop 08/01/17 at 22:08; Status DC Sodium Chloride 100 ml @ 1,000 mls/hr Q6M ONCE IV ; Start 08/01/17 at 21:09; Stop 08/01/17 at 21:49; Status DC Sodium Bicarbonate 150 meq/Dextrose 1,150 ml @ 125 mls/hr Q9H12M IV Last administered on 08/02/17at 11:13; Start 08/01/17 at 23:00; Stop 08/02/17 at 15:23; Status DC Pantoprazole Sodium (Protonix Inj) 40 mg Q12H IV PUSH Last administered on at 11:50; Start 08/02/17 at 00:00 Sodium Chloride 500 ml @ 500 mls/hr BOLUS ONCE IV Last administered on at 08:00; Start 08/02/17 at 08:00; Stop 08/02/17 at 08:59; Status DC Sodium Chloride 500 ml @ 0 mls/hr BOLUS ONCE IV Last administered on 08/02/17at 10:30; Start 08/02/17 at 10:30; Stop 08/02/17 at 10:31; Status DC Magnesium Sulfate/ Dextrose 100 ml @ 100 mls/hr ONCE ONCE IV Last administered on 08/02/17at 16:00; Start 08/02/17 at 16:00; Stop 08/02/17 at 16:59; Status DC Calcium Gluconate 2 gm/Dextrose 120 ml @ 120 mls/hr ONCE ONCE IV Last administered on 08/02/17at 16:00; Start 08/02/17 at 16:00; Stop 08/02/17 at 16:59; Status DC Sodium Bicarbonate 150 meq/Dextrose 1,000 ml @ 50 mls/hr Q20H IV Last administered on 08/03/17at 03:43; Start 08/02/17 at 15:15; Stop 08/03/17 at 11:46; Status DC Sodium Bicarbonate (Sodium Bicarbonate 8.4% Inj) 50 meq ONCE ONCE IV PUSH Last administered on 08/02/17at 17:32; Start 08/02/17 at 15:15; Stop 08/02/17 at 15: 19; Status DC Sodium Chloride 500 ml @ 500 mls/hr BOLUS ONCE IV Last administered on at 15:15; Start 08/02/17 at 15:15; Stop 08/02/17 at 16:14; Status DC Potassium Chloride 100 ml @ 50 mls/hr BOLUS ONCE IV Last administered on at 19:49; Start 08/02/17 at 15:30; Stop 08/02/17 at 17:29; Status DC Norepinephrine Bitartrate 250 ml @ As Directed STK-MED ONCE IV ; Start 08/02/17 at 18:45; Stop 08/02/17 at 18:46; Status DC Sodium Chloride 1,000 ml @ 999 mls/hr BOLUS ONCE IV Last administered on at 18:45; Start 08/02/17 at 18:45; Stop 08/02/17 at 19:45; Status DC Sodium Chloride 1,000 ml @ 999 mls/hr BOLUS ONCE IV Last administered on at 21:10; Start 08/02/17 at 18:45; Stop 08/02/17 at 19:45; Status DC Norepinephrine Bitartrate 250 ml @ 7.5 mls/hr TITRATE PRN IV Maintain MAP > 65 mmHg Last administered on 08/03/17at 13:17; Start 08/02/17 at 19:45 Potassium Chloride 100 ml @ 25 mls/hr Q4H IV Last administered on 08/03/17at 11: 39; Start 08/03/17 at 05:30; Stop 08/03/17 at 13:29; Status DC Calcium Gluconate 2 gm/Sodium Chloride 120 ml @ 120 mls/hr ONCE ONCE IV Last administered on 08/03/17at 06:32; Start 08/03/17 at 05:30; Stop 08/03/17 at 06:29; Status DC Magnesium Sulfate 100 ml @ 300 mls/hr BOLUS ONCE IV ; Start 08/03/17 at 05:30; Stop 08/03/17 at 05:49; Status UNV Magnesium Sulfate 4 gm/Sodium Chloride 108 ml @ 54 mls/hr ONCE ONCE IV Last administered on 08/03/17at 06:31; Start 08/03/17 at 05:45; Stop 08/03/17 at 07:44; Status DC Potassium Chloride 100 ml @ 50 mls/hr Q2H IV ; Start 08/03/17 at 09:00; Stop 08/03/17 at 12:59; Status Cancel Magnesium Sulfate/ Dextrose 100 ml @ 100 mls/hr Q1H IV Last administered on 08/03/17at 09:31; Start 08/03/17 at 08:45; Stop 08/03/17 at 09:44; Status DC Etomidate (Amidate Inj) 20 mg ONCE ONCE IV PUSH Last administered on 08/03/17at 10:40; Start 08/03/17 at 10:00; Stop 08/03/17 at 10:01; Status DC Succinylcholine Chloride (Quelicin Inj) 100 mg ONCE ONCE IV PUSH Last administered on 08/03/17at 10:37; Start 08/03/17 at 09:30; Stop 08/03/17 at 09:50; Status DC Fentanyl Citrate 250 ml @ 5 mls/hr TITRATE PRN IV SEDATION Last administered on 08/03/17at 10:45; Start 08/03/17 at 10:00 Etomidate (Amidate Inj) 40 mg STK-MED ONCE .ROUTE ; Start 08/03/17 at 09:38; Stop 08/03/17 at 09:39; Status DC Succinylcholine Chloride (Quelicin Inj) 200 mg STK-MED ONCE .ROUTE Last administered on 08/03/17at 11:18; Start 08/03/17 at 09:39; Stop 08/03/17 at 09:40; Status DC Sodium Chloride 1,000 ml @ 999 mls/hr BOLUS ONCE IV Last administered on at 10:15; Start 08/03/17 at 10:15; Stop 08/03/17 at 11:15; Status DC Vancomycin HCl 1000 mg/Sodium Chloride 250 ml @ 250 mls/hr ONCE ONCE IV Last administered on 08/03/17at 11:50; Start 08/03/17 at 10:30; Stop 08/03/17 at 11:29; Status DC Chlorhexidine Gluconate (Peridex 0.12% Liq) 15 ml BID@08,20 MT ; Start 08/03/17 at 20:00 Albuterol/ Ipratropium (Duoneb Neb) 1 ampule Q6HR NEB NEB ; Start 08/03/17 at 16 :00 Albuterol/ Ipratropium (Duoneb Neb) 1 ampule Q2HR NEB PRN NEB WHEEZING; Start 08/03/17 at 10:45 Sodium Bicarbonate 150 meq/Dextrose 1,150 ml @ 50 mls/hr Q23H IV Last administered on 08/03/17at 12:32; Start 08/03/17 at 14:00 Phenylephrine HCl 80 mg/Dextrose 500 ml @ 15 mls/hr TITRATE PRN IV Blood pressure Management; Start 08/03/17 at 14:00; Status UNV Terbutaline Sulfate (Brethine Inj) 1 mg UNSCH PRN SQ For Extravasation; Start 08/03/17 at 14:00; Status UNV Family History Unobtainable from patient. Social History Unobtainable from patient. Physical Exam Vital Signs Vital Signs Date Time Temp Pulse Resp B/P (MAP) Pulse Ox O2 Delivery O2 Flow Rate FiO2 08/03/17 13:17 79 88/60 08/03/17 12:06 97 50 08/03/17 12:00 79 08/03/17 11:00 99.0 81 16 106/52 (70) 97 127/53 (77) 08/03/17 10:47 100 100 08/03/17 10:40 50 08/03/17 10:00 90 08/03/17 08:00 94 08/03/17 07:00 99.4 94 22 111/55 (73) 92 115/36 (62) 08/03/17 06:00 96 08/03/17 04:00 96 08/03/17 03:00 97.9 94 24 123/58 (79) 95 124/47 (72) 08/03/17 02:00 91 08/03/17 00:56 97 126/42 08/03/17 00:00 101 08/02/17 23:00 98.2 95 19 111/58 (75) 96 115/39 (64) 08/02/17 22:00 99 08/02/17 20:00 93 08/02/17 19:45 93 75/37 08/02/17 19:00 97.8 92 20 102/51 (68) 95 115/36 (62) 08/02/17 18:00 93 08/02/17 16:00 97.6 94 34 112/53 (72) 96 08/02/17 16:00 84 08/02/17 14:00 90 Physical Exam GENERAL: Elderly female with an ET tube in place on ventilatory support. SKIN: Warm and dry. HEAD: Normocephalic. EYES: No scleral icterus. No injection or drainage. NECK: Supple, trachea midline. No JVD or lymphadenopathy. CARDIOVASCULAR: Regular rate and rhythm without murmurs, gallops, or rubs. RESPIRATORY: Breath sounds equal bilaterally. No accessory muscle use. GASTROINTESTINAL: Abdomen soft, non-tender, nondistended. MUSCULOSKELETAL: No cyanosis, or edema. Laboratory Laboratory Tests Test 08/02/17 17:30 08/02/17 18:14 08/03/17 00:48 08/03/17 03:55 Hemoglobin 11.1 11.2 11.0 Hematocrit 33.1 33.8 32.8 Urine Eosinophils NONE SEEN Urine Random Creatinine 55.2 Urine Random Sodium 57 White Blood Count 23.4 Red Blood Count 3.78 Mean Corpuscular Volume 86.8 Mean Corpuscular Hemoglobin 29.0 Mean Corpuscular Hemoglobin Concent 33.4 Red Cell Distribution Width 13.9 Platelet Count 231 Mean Platelet Volume 9.5 Neutrophils (%) (Auto) 92.5 Lymphocytes (%) (Auto) 2.1 Monocytes (%) (Auto) 5.2 Eosinophils (%) (Auto) 0.0 Basophils (%) (Auto) 0.2 Neutrophils # (Auto) 21.7 Lymphocytes # (Auto) 0.5 Monocytes # (Auto) 1.2 Eosinophils # (Auto) 0.0 Basophils # (Auto) 0.0 CBC Comment AUTO DIFF Differential Total Cells Counted 100 Neutrophils % (Manual) 86 Band Neutrophils % 9 Lymphocytes % 1 Monocytes % 4 Neutrophils # (Manual) 22.2 Differential Comment FINAL DIFF MANUAL Platelet Estimate NORMAL Platelet Morphology Comment NORMAL Red Cell Morphology Comment NORMAL Blood Urea Nitrogen 77 Creatinine 3.63 Random Glucose 244 Total Protein 5.6 Albumin 1.8 Calcium Level 6.4 Phosphorus Level 2.9 Magnesium Level 1.4 Alkaline Phosphatase 91 Aspartate Amino Transf (AST/SGOT) 61 Alanine Aminotransferase (ALT/SGPT) 173 Total Bilirubin 0.7 Sodium Level 138 Potassium Level 2.2 Chloride Level 101 Carbon Dioxide Level 25.2 Anion Gap 12 Estimat Glomerular Filtration Rate 12 Lactic Acid Level 1.1 Protein Corrected Calcium 7.1 Troponin I 0.27 Lipase 422 Random Vancomycin Level 8.8 Test 08/03/17 07:49 08/03/17 10:15 08/03/17 11:13 Blood Gas Puncture Site ART LINE ART LINE Blood Gas Patient Temperature 98.6 98.6 Blood Gas HCO3 26 25 Blood Gas Base Excess 1.5 1.1 Blood Gas Oxygen Saturation 91 97 Arterial Blood pH 7.38 7.42 Arterial Blood Partial Pressure CO2 46 40 Arterial Blood Partial Pressure O2 66 209 Arterial Blood Oxygen Content 14.0 15.4 Arterial Blood Carboxyhemoglobin 1.3 1.1 Arterial Blood Methemoglobin 1.4 1.4 Blood Gas Hemoglobin 10.9 11.0 Oxygen Delivery Device Venti Mask VENTILATOR Blood Gas Liter Flow 6 Blood Gas Inspired Oxygen 50 100 D-Dimer Quantitative (PE/DVT) 17.82 Blood Gas Ventilator Setting [facility]/ Date/Time Source Procedure Growth Status 08/01/17 22:05 Blood Peripheral Aerobic Blood Culture - Preliminary NO GROWTH IN 2 DAYS Resulted 08/01/17 22:05 Blood Peripheral Anaerobic Blood Culture - Preliminary NO GROWTH IN 2 DAYS Resulted 08/01/17 21:10 Urine Catheterized Urine Urine Culture - Final NO GROWTH IN 48 HOURS. Complete Result Diagram: 08/03/17 0355 08/03/17 0355 Imaging Last 48 hours Impressions Lower Extremity Ultrasound 08/03/17 0000 Signed Impressions: CONCLUSION: 1. Extensive DVT of the right lower extremity. 2. No venous thrombosis of the left lower extremity. Chest X-Ray 08/03/17 0000 Signed Impressions: CONCLUSION: The lungs are significantly hypoinflated but better aerated as compared to the prior exam with interval intubation. Stable right-sided central line. Nasogastr ic tubing with the proximal port below the level the diaphragm. Cholangiopancreatography MRI 08/02/17 Signed Impressions: CONCLUSION: 1. Gallstones with at least one stone in the common duct 2. Pancreas poorly visualized because of motion. 3. Fluid present in the lesser sac consistent with pancreatitis. Chest X-Ray 08/02/17 Signed Impressions: CONCLUSION: 1. Interval placement of right central venous catheter with no pneumothorax. 2. New opacity in the left perihilar region as well as mild increased opacity at the lung bases. 3. Apparent small bilateral effusions. 4. Mid inspiratory study. Assessment and Plan Problem List: (1) Acute renal failure ICD Codes: N17.9 - Acute kidney failure, unspecified Status: Acute Plan: Secondary to dehydration, shock syndrome and sepsis. Urinary output and creatinine level has improved with aggressive IV hydration. Continue to hydrate. Defer inotropic support to critical care. Medications should be adjusted for the patient's estimated GFR if clinically indicated. Avoid agents with significant potential for nephrotoxicity possible including NSAIDs for analgesia, iodine contrast agents. Gadolinium is contraindicated if the GFR is below 30. (2) Metabolic acidosis ICD Codes: E87.2 - Acidosis Status: Acute Plan: Acid-base status significantly improved. Would reduce sodium bicarbonate at this point in time. Assessment and Plan We will continue to follow with you. If renal indices continues to improve and urinary output adequate I will likely see the patient intermittently. Samantha Sheridan MD Aug 03, 2017 13:36
[2017-08-03] MEDS ORDERED: SODIUM BICARBONATE 8.4% INJ 150 MEQ in DEXTROSE 5% IN WATE 1000ML INJ 1,000 ML IV SCH ×2 (14:00)
[2017-08-03] MEDS ORDERED: TERBUTALINE INJ 1 MG/ML AMP SQ PRN (14:00)
[2017-08-03] MEDS: PHENYLEPHRINE INJ 80 MG in DEXTROSE 5% IN WATE 500 ML INJ 492 ML IV PRN ×2 (14:37)
--- NOTE | 2017-08-03 14:42 | MB ---
cc: Derick Tang MD DATE: 08/03/2017 REASON FOR CONSULTATION: Evaluation of increased troponin. HISTORY OF PRESENT ILLNESS: This is a 76-year-old female who I am asked to see for an elevated troponin. She was admitted to the hospital 08/01/2017. She has been diagnosed with sepsis. She required intubation. She is on Levophed. The patient is intubated and I cannot obtain any history. 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 ALLERGIES: LISTED AND INCLUDE ASPIRIN AND PENICILLIN G. PAST SURGICAL HISTORY: Includes lumpectomy and hysterectomy. PHYSICAL EXAMINATION: GENERAL: Shows a supine patient who is intubated. She is well developed, well nourished. She is on a Levophed drip. HEENT: Unremarkable. NECK: Shows absence of JVD. There are no bruits. CHEST: Clear anteriorly. CARDIAC: S1, S2, regular rate and rhythm. I do not hear murmurs or gallops. ABDOMEN: Soft. EXTREMITIES: Reveal lower extremity edema between 1 and 2+. DIAGNOSTIC STUDIES: EKG has not been obtained. EKG from 08/01 shows normal sinus rhythm, left axis deviation, possible left ventricular hypertrophy with nonspecific ST changes. Compared to the EKG from 2017, it does not appear significantly changed. Laboratory work, hematocrit is 32.8; white count is markedly elevated at 23,800. Potassium is only 2.2, BUN 77 with a creatinine of 3.63. Troponin went from 0.03-0.27. Albumin is only 1.8. Chest x-ray is interpreted as hypoinflated lungs. No mention of CHF. IMPRESSION: Mildly elevated troponin in the setting of renal failure and on Levophed drip, relatively nonspecific. Cannot diagnose ischemic event based on this. She is frail with history of dementia, [facility] patient with sepsis, on Levophed and now with respiratory failure. RECOMMENDATIONS: I have ordered an EKG. I will not follow but I will be available if there are questions. Echo has already been obtained this admit showing preserved LV function. MD FELECIA Moya/TIMOTHY , 12:09 PM , 02:41 PM
[2017-08-03] MEDS: [UNRECOGNIZED DRUG - OTHER] IV SCH (14:50)
[2017-08-03] MEDS: POTASSIUM CHLORIDE IV SCH (14:50)
[2017-08-03] MEDS: SODIUM BICARBONATE IV SCH (14:50)
[2017-08-03] MEDS: RESP: ALBUTEROL 2.5 MG/IPRATROPIUM 0.5 MG NEB (SCH) NEB ×2 (15:08→19:55)
--- NOTE | 2017-08-03 15:58 | HHI.CCPN ---
Subjective Remarks/Hospital Course 76-year-old pleasantly demented female, [place] [facility] resident. The patient was noted earlier today to have a sudden onset of right gaze, as well as right- sided weakness. She was also found to be very hypotensive. Initial blood pressure 60/20, which responded to fluids and increased to 90/60. She presented to the hospital as a stroke-alert. The MRI of brain obtained in the emergency department showed only questionable tiny subacute lacunar infarcts posterior periventricular white matter. Moderate to severe chronic ischemic changes in the periventricular white matter. Remote left parietal lobe infarct. The CT of the abdomen and pelvis however shows the abnormal pancreas with enlargement and peripancreatic inflammation and edema characteristic of acute pancreatitis. Cholelithiasis without pancreatic duct dilatation. Subjective: 08/02: Afebrile. Patient continues to have severe metabolic acidosis sodium bicarbonate infusion continued. Patient on nonrebreather continuing to be weaned down . Patient bolused with 500 cc normal saline 1 this a.m.. Oliguric 150 cc urine output in the last 12 hours. Unable to assess the amount of IV fluid patient was given in the ED and overnight. No hematemesis or melena this a.m. Patient continues on Protonix twice daily. Patient currently on nonrebreather mask currently being weaned down O2 saturation 100% though PaO2 is 155. Triglycerides are pending. MRI is pending. 08/03: Afebrile. Overnight patient became hemodynamically unstable, central line placed patient currently on Levophed 12 mcgs/min. The patient FIO2 requirements are increasing, intubation planned. Echo report last night showed RV mildly dilated with RV systolic function mildly decreased. Concern for possible PE, however patient not a candidate in the setting of GI Bleed. Hgb and Hct trend stable. Metabolic acidosis resolved with NaHCO3 infusion, now decreased. Patient 's SVV continued elevation and BUN 77. Pt bolused IVF's this am. UOP, creatinine slightly improved overnight. Electrolytes being replaced and closely monitored. Discussed with GI AKI Spence after her discussion with Dr. Sanchez this am plan is for MRCP today by GI or Invasive Radiology. Objective Vital Signs Date Time Temp Pulse Resp B/P (MAP) Pulse Ox O2 Delivery O2 Flow Rate FiO2 08/03/17 15:07 100 50 08/03/17 15:00 98.4 80 16 108/52 (70) 115/52 (73) 08/01/17 20:30 Non-Rebreather 15.00 Intake and Output 08/03/17 08/03/17 08/04/17 08:00 16:00 00:00 Intake Total 1100 ml Output Total 1000 ml Balance 100 ml Result Diagram: 08/03/17 0355 08/03/17 0355 Other Results Microbiology Date/Time Source Procedure Growth Status 08/01/17 21:10 Urine Catheterized Urine Urine Culture - Final NO GROWTH IN 48 HOURS. Complete Laboratory Tests Test 08/03/17 07:49 08/03/17 11:13 Blood Gas Puncture Site ART LINE ART LINE Blood Gas Patient Temperature 98.6 98.6 Blood Gas HCO3 26 mmol/L (22-26) 25 mmol/L (22-26) Blood Gas Base Excess 1.5 mmol/L (-2-2) 1.1 mmol/L (-2-2) Blood Gas Oxygen Saturation 91 % (90-100) 97 % (90-100) Arterial Blood pH 7.38 (7.380-7.420) 7.42 (7.380-7.420) Arterial Blood Partial Pressure CO2 46 mmHg (38-42) 40 mmHg (38-42) Arterial Blood Partial Pressure O2 66 mmHg (61-120) 209 mmHg (61-120) Arterial Blood Oxygen Content 14.0 Vol % (12.0-20.0) 15.4 Vol % (12.0-20.0) Arterial Blood Carboxyhemoglobin 1.3 % (0-4) 1.1 % (0-4) Arterial Blood Methemoglobin 1.4 % (0-2) 1.4 % (0-2) Blood Gas Hemoglobin 10.9 G/DL (12.0-16.0) 11.0 G/DL (12.0-16.0) Oxygen Delivery Device Venti Mask VENTILATOR Blood Gas Liter Flow 6 L/M Blood Gas Inspired Oxygen 50 % 100 % Blood Gas Ventilator Setting PRVC/AC Imaging Last [address] 08/01/17 0000 Signed Impressions: CONCLUSION: 1. No acute intracranial abnormality is identified. 2. However, there is encephalomalacia in the left parietal region and there is generalized atrophy with severe periventricular white matter low-attenuation c haracteristic of chronic microvascular ischemia. Chest X-Ray 08/01/17 0000 Signed Impressions: CONCLUSION: Underinflated examination with small bilateral pleural effusions with compressi ve atelectasis at the lung bases. Carotid Artery Ultrasound 08/01/17 Signed Impressions: CONCLUSION: 1. Right Internal Carotid Artery: Findings indicate <50% stenosis. 2. Left Internal Carotid Artery: Findings indicate <50% stenosis. Abdomen/Pelvis CT 08/01/17 Signed Impressions: CONCLUSION: 1. The pancreas is abnormal with enlargement and peripancreatic inflammation a nd edema characteristic of acute pancreatitis. There is a small volume of free fluid in the abdomen and pelvis. 2. Cholelithiasis without pancreatic duct dilatation. 3. There is mild wall thickening of the inferior rectum with associated presac ral edema. 4. Small bilateral pleural effusions with associated compressive atelectasis. 5. There is a compression deformity of uncertain chronicity involving L3 and c ompression deformity with sclerosis involving T9. Objective Remarks GENERAL: This is a well-nourished, well-developed elderly female patient, in mild distress currently on FiO2 of 50% Ventimask SKIN: No rashes, ecchymoses or lesions. Cool and dry. HEAD: Atraumatic. Normocephalic. No temporal or scalp tenderness. EYES: Pupils equal round and reactive. Extraocular motions intact. No scleral icterus. No injection or drainage. ENT: Nose without bleeding, purulent drainage or septal hematoma. Throat without erythema, tonsillar hypertrophy or exudate. Uvula midline. Airway patent. NECK: Trachea midline. No JVD or lymphadenopathy. Supple, nontender, no meningeal signs. CARDIOVASCULAR: Regular rate and rhythm with soft murmurs, no gallops, no rubs. Currently on Levophed infusion RESPIRATORY: Poor inspiratory effort, diminished at bases. Bilateral chest excursion . Nonproductive cough. On Ventimask at 50% GASTROINTESTINAL: Abdomen soft, non-tender, nondistended. No hepato-splenomegaly , or palpable masses. No guarding. MUSCULOSKELETAL: Extremities without clubbing, cyanosis, or edema. No joint tenderness, effusion, or edema noted. No calf tenderness. Negative Homans sign bilaterally. NEUROLOGICAL: Awakes to voice. Weak to upper extremities and lower extremities. Doesn't follow commands consistently. No focal deficits. Date of Insertion: Aug 02, 2017 Date of Insertion: Aug 03, 2017 A/P Assessment and Plan Plan by systems: Neurologic: Acute left lacunar stroke History of previous CVA Schizophrenia Depression Schizophrenia 08/02 MRI-moderate to severe ischemic changes. Tiny subacute lacunar infarcts. Remote left parietal lobe infarct 08/02 MRA brain-negative 08/02-CT brain-no acute abnormality Carotids-<50% stenosis Patient is followed by neurology-Dr. Michelle Not a candidate for TPA also due to acute GI bleed Risperidone-on hold Zoloft-on hold Respiratory: Acute hypoxemic respiratory insufficiency Maintain O2 saturation greater than 92% ABG this a.m. PaO2 66 on 50%ventimask, tachypneic 08/03-intubation Duo nebs every 6 hours scheduled every 2 hours as needed Ventilator bundle 08/02 CT-small bilateral pleural effusions bases Obtain d-dimer -suspicion for PE given the echo results-unable to do CT angiogram secondary to elevated creatinine (3.6) and currently patient not a candidate for anticoagulation due to GI bleed Obtain bilateral ultrasounds lower extremities Cardiovascular: Hypovolemic shock Apply Flowtrach-monitor parameters. Patient now intubated Monitor CVP Bolus 1.5 L, in the ED. Patient bolus 500 cc IV now. Patient received 2 units packed red blood cells secondary to blood loss Maintain MAP greater than 65mmhg-norepinephrine 12mcgs/min 08/02 echo-right ventricle mildly dilated. Right ventricular systolic function mildly decreased. EF 55-60% 08/03-troponin increased 0.03->0.27. Possibly secondary to acute kidney injury, infection ? Will continue to trend Consult cardiology Renal: Maintain Mary catheter -- Strict I/Os FEN/GI: Acute pancreatitis-gallstone Dyslipidemia GI bleed Elevated liver enzymes Protein calorie malnutrition Bolus in ED with approximately 1500 cc normal saline. 500 cc normal saline IV 2 now Sodium bicarbonate infusion 150 cc/hr Broad-spectrum antibiotics Continue aggressive fluid Gemfibrozil 08/01 GI has been consulted Protonix twice daily Rectal wall thickening on the CT Protonix IV twice daily In ED patient was noted to have bright red blood per rectum 08/02- 1700 S/P MRI-at least one stone in the common bile duct. Stat consult to gastroenterology. I telephoned and spoke with Dr. Sanchez made him aware of patient's result. Further management per gastroenterology.08/03: I discussed with Ms. Guzman her discussion with Dr. Sanchez tentative plan for MRCP today by IR Concern for biliary obstruction- HIDA scan ordered 08/03-planned MRCP Lipase downtrending [id number]. Liver enzymes downtrending Albumin 1.8 Heme/ID: Acute blood loss anemia 2/2 GI bleed Persistent leukocytosis Monitor CBC Monitor H&H Transfuse for hemoglobin less than 7 Patient transfused 2 units packed red blood cells in the ED (08/01) Endocrine: Hyperglycemia Obtain hemoglobin A1c Glucose monitoring per ICU protocol. Low-dose regimen -- SSI Prophylaxis: GI Prophylaxis Protonix BID DVT Prophylaxis -- SCDs -Hold pharmacological DVT prophylaxis due to acute GI bleed Lines: Peripheral IVs 3. Central line if indicated Dispo: my billing statement This patient remains critically ill with one or more organ systems which are or may become a threat to life. I have spent in excess of 35 minutes discontinuously in the care and management of this patient. This time is exclusive of procedures, and includes, but is not limited to, evaluation of the patient, review of the medical record, discussions with family, consultants, nursing staff, or respiratory therapy, and documentation in the medical record. Physician Marcelina Levin MD Aug 03, 2017 15:58
[2017-08-03] MEDS: PROPOFOL 1000 MG/100 ML INJ 100 ML IV PRN (19:00)
[2017-08-03] MEDS ORDERED: SINCALIDE 5 MCG/5 ML VIAL IV ONE (19:12)
--- NOTE | 2017-08-03 19:21 | RADRPT ---
EXAM DATE: 08/03/2017 7:13 PM EDT AGE/SEX: 76 years / Female INDICATIONS: Obstruction. Pancreatitis and abnormal CT. CLINICAL DATA: This is the patient's initial encounter. Patient reports that signs and symptoms have been present for 1 day and indicates a pain score of Nonresponsive. MEDICAL/SURGICAL HISTORY: Pancreatitis. Hysterectomy. COMPARISON: [facility] [facility], MRCP W/O CONTRAST, 08/02/2017. . DOSE: 4.2 mCi Tc-99m mebrofenin i.v. Medication: 1.6 mcg Cholecystokinin IV No symptomatic response Cholecystokinin was administered by slow infusion over 8 minutes beginning at 60 minutes. TECHNIQUE: Following the intravenous administration of radiotracer, dynamic sequential images were pe rformed with continuous acquisition. Time-activity curves were generated. FINDINGS: Hepatic Kinetics: There is prompt uptake of radiotracer in the liver. No focal defects are seen. Ther e is normal rate of washout from the hepatic parenchyma. Biliary Clearance: Activity is first seen in the extrahepatic biliary system at minutes. There is no rmal excretion into the small bowel. Gallbladder: Activity is first seen in the gallbladder at minutes. Post-CCK: After CCK administration, there is emptying of the gallbladder with a 35% ejection fraction . Common bile duct kinetics are normal and there is no evidence of biliary obstruction. No symptomat ic response after cholecystokinin infusion. Biliary-Enteric Reflux: None observed. CONCLUSION: 1. No evidence of cystic duct or distal common bile duct obstruction. 2. Normal gallbladder ejection fraction. Electronically signed by: Galo Navarro MD 08/03/2017 7:20 PM EDT
[2017-08-03 20:51] LABS: HEMATOCRIT 31.7 % (35.0-46.0); HEMOGLOBIN 10.7 GM/DL (11.6-15.3)
[2017-08-03] MEDS: risperiDONE 0.5 MG TAB PO SCH (21:00)
[2017-08-03 21:11] LABS: BICARBONATE 25.9 MEQ/L (21.0-32.0); CALCIUM 7.1 MG/DL (8.5-10.1); CREATININE 2.7 MG/DL (0.50-1.00)
[2017-08-03 21:29] LABS: TOTAL PROTEIN 5.4 GM/DL (6.4-8.2)
[2017-08-03] MEDS: CHLORHEXIDINE 0.12% (ORAL KIT) 15 ML CUP MT SCH (21:33)
[2017-08-03] MEDS: ACETAMINOPHEN 325 MG TAB PO PRN (22:58)
[2017-08-04] VITALS (55 sets, daily range): BP systolic 97–138; BP diastolic 42–70; PULSE 63–90; RESP 12–17; TEMP 99.3–100; O2SAT 97–100
[2017-08-04] MEDS: PANTOPRAZOLE SODIUM 40 MG VIAL IV PUSH SCH ×2 (01:09→12:19)
[2017-08-04] MEDS: RESP: ALBUTEROL 2.5 MG/IPRATROPIUM 0.5 MG NEB (SCH) NEB ×4 (03:36→20:03)
[2017-08-04] MEDS: CHLORHEXIDINE GLUCONATE 2 % 1 PACK (2 CLOTHS) TOP SCH (04:00)
[2017-08-04] MEDS: POTASSIUM CHLOR 40 MEQ PREMIX 100 ML IV SCH (04:11)
[2017-08-04] MEDS: SODIUM BICARBONATE IV SCH ×2 (04:11→17:38)
[2017-08-04] MEDS: POTASSIUM CHLORIDE IV SCH ×2 (04:11→17:38)
[2017-08-04] MEDS: [UNRECOGNIZED DRUG - OTHER] IV SCH ×2 (04:11→17:38)
[2017-08-04 04:46] LABS: AUTOMATED NEUTROPHIL # 20.6 TH/MM3 (1.8-7.7); BASOPHIL % 0.2 % (0.0-2.0); EOSINOPHIL % 0.1 % (0.0-4.0); HEMATOCRIT 30.9 % (35.0-46.0); HEMOGLOBIN 10.4 GM/DL (11.6-15.3); LYMPHOCYTE # 1.2 TH/MM3 (1.0-4.8); MEAN CELL VOLUME 86.2 FL (80.0-100.0); MEAN CORPUSCULAR HGB CONC 33.7 % (32.0-36.0); MEAN PLATELET VOLUME 9.2 FL (7.0-11.0); MONO % 6.1 % (0.0-8.0); MONOCYTE # 1.4 TH/MM3 (0-0.9); NEUT % 88.6 % (16.0-70.0); PLATELET COUNT 254 TH/MM3 (150-450); RED BLOOD COUNT 3.58 MIL/MM3 (4.00-5.30); RED CELL DISTRIBUTION WIDTH 13.9 % (11.6-17.2); WHITE BLOOD COUNT 23.3 TH/MM3 (4.0-11.0)
[2017-08-04] MEDS: AZTREONAM INJ 2,000 MG in SODIUM CHLORIDE 0.9% INJ 100 ML IV SCH ×3 (05:15→22:48)
[2017-08-04] MEDS: GEMFIBROZIL 600 MG TAB PO SCH ×2 (05:16→16:22)
[2017-08-04] MEDS: metroNIDAZOLE 500 MG INJ 100 ML IV SCH ×3 (05:16→22:48)
[2017-08-04] MEDS: INSULIN ASPART SUPPLEMENTAL SCALE SQ SCH ×4 (08:00→20:12)
[2017-08-04] MEDS: fentaNYL DRIP 250 ML IV PRN (08:18)
[2017-08-04] MEDS: CHLORHEXIDINE 0.12% (ORAL KIT) 15 ML CUP MT SCH ×2 (08:22→20:12)
[2017-08-04] MEDS: PHENYLEPHRINE INJ 80 MG in DEXTROSE 5% IN WATE 500 ML INJ 492 ML IV PRN ×2 (08:36)
[2017-08-04] MEDS: SERTRALINE HCL 100 MG TAB PO SCH (09:29)
[2017-08-04] MEDS: SODIUM CHLORIDE 0.9% FLUSH 10 ML FLUSH IV FLUSH SCH ×2 (09:29→20:12)
[2017-08-04] MEDS: DOCUSATE SODIUM 50 MG/SENNA 8.6 MG TAB PO SCH ×2 (09:29→20:12)
[2017-08-04 10:07] LABS: HEMOGLOBIN A1C 5.6 % (4.3-6.0)
[2017-08-04 10:09] LABS: BANDS 14 % (0-6); LYMPHOCYTES 2 % (9-44); MONOCYTES 6 % (0-8); NEUTROPHIL # MANUAL DIFF 21.2 TH/MM3 (1.8-7.7); POLYS (SEG NEUTROPHILS) 77 % (16-70)
--- NOTE | 2017-08-04 10:57 | HHI.GIFU ---
Subjective Remarks Pt intubated but awake Unable to answer questions because of ETT (Babita Farrell) Objective Vitals I&O Vital Signs Date Time Temp Pulse Resp B/P (MAP) Pulse Ox O2 Delivery O2 Flow Rate FiO2 08/04/17 08:36 75 124/49 08/04/17 08:00 45 08/04/17 08:00 69 08/04/17 07:53 100 45 08/04/17 07:00 99.4 77 12 109/44 (65) 99 110/47 (68) 08/04/17 06:00 69 08/04/17 05:15 74 114/47 08/04/17 04:45 72 117/48 08/04/17 04:35 100 50 08/04/17 04:30 72 12 111/55 (73) 100 117/48 (71) 08/04/17 04:15 74 13 116/49 (71) 99 08/04/17 04:00 99.6 72 12 108/56 (73) 99 117/47 (70) 08/04/17 04:00 72 08/04/17 04:00 52 08/04/17 04:00 72 117/47 08/04/17 03:45 74 12 108/46 (66) 99 08/04/17 03:30 72 12 104/53 (70) 99 112/46 (68) 08/04/17 03:15 76 111/47 08/04/17 03:15 76 111/47 08/04/17 03:15 76 12 111/47 (68) 99 08/04/17 03:00 72 12 109/55 (73) 99 119/48 (71) 08/04/17 03:00 72 119/48 08/04/17 03:00 72 119/48 08/04/17 02:45 71 12 115/48 (70) 99 08/04/17 02:30 74 12 104/53 (70) 100 115/47 (69) 08/04/17 02:15 75 12 111/46 (67) 99 08/04/17 02:00 82 12 102/56 (71) 98 108/50 (69) 08/04/17 02:00 75 08/04/17 01:45 75 12 119/47 (71) 99 08/04/17 01:30 77 12 108/54 (72) 99 119/47 (71) 6/3/18 01:15 80 12 114/46 (68) 99 6/3/18 01:00 87 17 138/62 (87) 100 138/56 (83) 6/3/18 01:00 87 138/56 6/3/18 01:00 87 138/56 6/3/18 00:57 100 50 6/3/18 00:45 85 12 129/51 (77) 97 6/3/18 00:30 79 12 113/56 (75) 98 125/48 (73) 6/3/18 00:15 82 12 116/46 (69) 97 6/3/18 00:15 82 116/46 6/3/18 00:00 100.0 90 13 110/54 (72) 97 108/46 (66) 6/3/18 00:00 52 6/3/18 00:00 90 6/2/18 23:45 91 14 110/46 (67) 97 6/2/18 23:30 80 14 114/56 (75) 97 113/46 (68) 6/2/18 23:30 80 113/46 6/2/18 23:15 77 12 108/43 (64) 97 6/2/18 23:15 77 108/43 6/2/18 23:00 79 12 106/55 (72) 97 117/44 (68) 6/2/18 23:00 77 117/44 6/2/18 22:45 79 12 127/46 (73) 98 6/2/18 22:45 79 127/46 6/2/18 22:30 80 12 112/53 (72) 98 125/44 (71) 6/2/18 22:15 80 12 123/45 (71) 98 6/2/18 22:00 75 6/2/18 22:00 75 12 117/56 (76) 98 144/48 (80) 6/2/18 22:00 75 144/48 6/2/18 21:45 75 12 135/44 (74) 99 6/2/18 21:30 75 12 127/60 (82) 98 147/49 (81) 6/2/18 21:15 75 12 152/49 (83) 98 6/2/18 21:00 77 12 128/60 (82) 98 151/51 (84) 6/2/18 21:00 77 151/51 6/2/18 20:45 75 12 155/51 (85) 97 6/2/18 20:30 76 12 127/60 (82) 97 153/51 (85) 6/2/18 20:30 75 153/51 6/2/18 20:15 75 12 132/45 (74) 97 6/2/18 20:15 75 132/45 6/2/18 20:15 75 132/45 6/2/18 20:04 76 13 106/55 (72) 100 121/42 (68) 6/2/18 20:00 101.0 76 21 136/51 (79) 88 6/2/18 20:00 52 6/2/18 20:00 75 6/2/18 20:00 76 136/51 6/2/18 20:00 76 136/51 6/2/18 19:56 98 50 6/2/18 19:45 73 12 113/57 (75) 98 6/2/18 19:30 76 12 97 6/2/18 19:25 79 16 112/56 (74) 99 6/2/18 19:20 74 19 113/59 (77) 100 6/2/18 19:15 74 12 100 6/2/18 19:15 75 105/55 6/2/18 19:15 75 105/55 6/2/18 19:06 74 12 110/54 (72) 100 6/2/18 19:00 75 107/55 6/2/18 19:00 75 107/55 6/2/18 19:00 75 13 111/53 (72) 100 6/2/18 17:00 50 6/2/18 16:00 70 6/2/18 15:22 100 100 6/2/18 15:07 100 50 6/2/18 15:00 98.4 80 16 108/52 (70) 98 115/52 (73) 6/2/18 14:37 77 100/43 6/2/18 14:00 78 6/2/18 13:17 79 88/60 6/2/18 12:06 97 50 6/2/18 12:00 79 6/2/18 11:00 99.0 81 16 106/52 (70) 97 127/53 (77) I/O 08/03/17 08/03/17 08/03/17 08/04/17 08/04/17 08/04/17 07:00 15:00 23:00 07:00 15:00 23:00 Intake Total 1100 ml 3125 ml 2403 ml Output Total 1000 ml 1130 ml 1100 ml Balance 100 ml 1995 ml 1303 ml Intake Oral 0 ml IV Total 1100 ml 3125 ml 2403 ml Output Urine Total 1000 ml 1125 ml 1100 ml Gastric Drainage Total 5 ml # Bowel Movements 0 0 0 Laboratory Laboratory Tests Test 08/03/17 11:13 08/03/17 16:00 08/03/17 20:25 08/04/17 04:20 Blood Gas Puncture Site ART LINE ART LINE Blood Gas Patient Temperature 98.6 98.6 Blood Gas HCO3 25 25 Blood Gas Base Excess 1.1 1.9 Blood Gas Oxygen Saturation 97 94 Arterial Blood pH 7.42 7.48 Arterial Blood Partial Pressure CO2 40 34 Arterial Blood Partial Pressure O2 209 76 Arterial Blood Oxygen Content 15.4 14.3 Arterial Blood Carboxyhemoglobin 1.1 1.1 Arterial Blood Methemoglobin 1.4 1.3 Blood Gas Hemoglobin 11.0 10.8 Oxygen Delivery Device VENTILATOR VENTILATOR Blood Gas Ventilator Setting PRVC/AC PRVC/AC Blood Gas Inspired Oxygen 100 50 Hemoglobin 10.7 10.4 Hematocrit 31.7 30.9 Blood Urea Nitrogen 65 Creatinine 2.70 Random Glucose 158 Total Protein 5.4 Calcium Level 7.1 Sodium Level 142 Potassium Level 2.3 Chloride Level 103 Carbon Dioxide Level 25.9 Anion Gap 13 Estimat Glomerular Filtration Rate 17 Protein Corrected Calcium 8.0 White Blood Count 23.3 Red Blood Count 3.58 Mean Corpuscular Volume 86.2 Mean Corpuscular Hemoglobin 29.0 Mean Corpuscular Hemoglobin Concent 33.7 Red Cell Distribution Width 13.9 Platelet Count 254 Mean Platelet Volume 9.2 Neutrophils (%) (Auto) 88.6 Lymphocytes (%) (Auto) 5.0 Monocytes (%) (Auto) 6.1 Eosinophils (%) (Auto) 0.1 Basophils (%) (Auto) 0.2 Neutrophils # (Auto) 20.6 Lymphocytes # (Auto) 1.2 Monocytes # (Auto) 1.4 Eosinophils # (Auto) 0.0 Basophils # (Auto) 0.0 CBC Comment AUTO DIFF Differential Total Cells Counted 100 Neutrophils % (Manual) 77 Band Neutrophils % 14 Lymphocytes % 2 Monocytes % 6 Eosinophils % 1 Neutrophils # (Manual) 21.2 Differential Comment FINAL DIFF MANUAL Platelet Estimate NORMAL Platelet Morphology Comment CLUMPED Red Cell Morphology Comment NORMAL B-Type Natriuretic Peptide 252 Test 08/04/17 10:20 Date/Time Source Procedure Growth Status 08/01/17 22:05 Blood Peripheral Aerobic Blood Culture - Preliminary NO GROWTH IN 2 DAYS Resulted 08/01/17 22:05 Blood Peripheral Anaerobic Blood Culture - Preliminary NO GROWTH IN 2 DAYS Resulted 08/01/17 21:10 Urine Catheterized Urine Urine Culture - Final NO GROWTH IN 48 HOURS. Complete Imaging Last Impressions Lower Extremity Ultrasound 08/03/17 Signed Impressions: CONCLUSION: 1. Extensive DVT of the right lower extremity. 2. No venous thrombosis of the left lower extremity. Hepatobiliary Scan Nuclear Medicine 08/03/17 Signed Impressions: CONCLUSION: 1. No evidence of cystic duct or distal common bile duct obstruction. 2. Normal gallbladder ejection fraction. Chest X-Ray 08/03/17 Signed Impressions: CONCLUSION: The lungs are significantly hypoinflated but better aerated as compared to the prior exam with interval intubation. Stable right-sided central line. Nasogastr ic tubing with the proximal port below the level the diaphragm. Cholangiopancreatography MRI 08/02/17 Signed Impressions: CONCLUSION: 1. Gallstones with at least one stone in the common duct 2. Pancreas poorly visualized because of motion. 3. Fluid present in the lesser sac consistent with pancreatitis. Head Magnetic Resonance Angiography 08/01/17 Signed Impressions: CONCLUSION: 1. Negative MRA Cow ([place]) non contrast. Head CT 08/01/17 Signed Impressions: CONCLUSION: 1. No acute intracranial abnormality is identified. 2. However, there is encephalomalacia in the left parietal region and there is generalized atrophy with severe periventricular white matter low-attenuation c haracteristic of chronic microvascular ischemia. Carotid Artery Ultrasound 08/01/17 Signed Impressions: CONCLUSION: 1. Right Internal Carotid Artery: Findings indicate <50% stenosis. 2. Left Internal Carotid Artery: Findings indicate <50% stenosis. Brain MRI 08/01/17 Signed Impressions: CONCLUSION: 1. Questionable tiny subacute lacunar infarcts posterior periventricular white matter. Moderate to severe chronic ischemic changes in the periventricular whi te matter. Remote left parietal lobe infarct. Abdomen/Pelvis CT 08/01/17 0000 Signed Impressions: CONCLUSION: 1. The pancreas is abnormal with enlargement and peripancreatic inflammation a nd edema characteristic of acute pancreatitis. There is a small volume of free fluid in the abdomen and pelvis. 2. Cholelithiasis without pancreatic duct dilatation. 3. There is mild wall thickening of the inferior rectum with associated presac ral edema. 4. Small bilateral pleural effusions with associated compressive atelectasis. 5. There is a compression deformity of uncertain chronicity involving L3 and c ompression deformity with sclerosis involving T9. Physical Exam HEENT: Normocephalic; atraumatic CHEST: Respirations synchronized with vent, ETT CARDIAC: RRR ABDOMEN: Distended, soft, bowel sounds active SKIN: Normal; no rash; no jaundice. GLASS TECHNICIAN/INSTALLER: Awake (Babita Farrell) Assessment and Plan Plan Assessment: - Rectal bleeding- Bloody BM witness in ER, pt received 2 U PRBCs H/H currently 11.7/35.2- pt presented to with right sided gaze and weakness, seen by neurology who reports not a candidate for TPA given bloody stools. Also recommended withholding anticoagulants or antiplatelets because of this. Pt unable to provide history, dementia and stroke- no previous records revealing history of GIB, colonoscopy, or EGD. CT reveals mild wall thickening of the inferior rectum with associated presacral edema - Pancreatitis- [id number] with elevated LFTs and metabolic acidosis (08/01) AST-92 ALT-350 Alk phos-89 T bili-0.9 CT abdomen and pelvis WO IV contrast --> The pancreas is abnormal with enlargement and peripancreatic inflammation and edema characteristic of acute pancreatitis. There is a small volume of free fluid in the abdomen and pelvis. Cholelithiasis without pancreatic duct dilatation. ? Biliary pancreatitis, ? medication induced (Lisinopril, Zoloft, Risperidone) Lipid panel pending - R sided gaze and R sided weakness- neurology following- no anticoagulants given reports of GIB (08/03) Pt now on Levophed for blood pressure support. Increase in leukocytosis noted, on Aztreonam and Flagyl. Also on 7 L simple mask. No BMs documented overnight, H/H remains stable. MRCP noted --> Gallstones with at least one stone in the common duct. Pancreas poorly visualized because of motion. Fluid present in the lesser sac consistent with pancreatitis. LFTs trending down AST-61 ALT-173 Alk phos-91 T bili-0.7 Lipase trending down- 422 Consult placed to IR for percutaneous transhepatic biliary drain, labs trending down revealing no obstruction, no need for STAT consult (08/04) Pt is now intubated, awake on the vent, in no apparent distress. She is on Arnol for blood pressure support. Labs from today pending, but LFTs have been trending down revealing no obstruction, will cancel IR consult and continue to monitor Plan: Monitor LFTs, lipase Continue abx Supportive care No continued report of rectal bleeding, ? Flex sig vs colonoscopy when more stable or if continued rectal bleeding Further recommendations based on clinical course and results of above Pt has been seen and examined by myself and Dr. Sanchez and this note is written on his behalf (Babita Farrell) Physician Comments Agree with above assessment and plan. Will follow up with you. (Trinh Sanchez MD) Babita Farrell Aug 04, 2017 10:57 Trinh Sanchez MD Aug 04, 2017 14:25
[2017-08-04 11:37] LABS: ALBUMIN 1.4 GM/DL (3.4-5.0); BICARBONATE 22.6 MEQ/L (21.0-32.0); CALCIUM 7.3 MG/DL (8.5-10.1); CALCIUM-PROTEIN CORRECTED 8.4 MG/DL (8.5-10.1); CREATININE 2.11 MG/DL (0.50-1.00); MAGNESIUM 2.2 MG/DL (1.5-2.5); PHOSPHORUS 1.6 MG/DL (2.5-4.9); TOTAL BILIRUBIN ADULT 0.7 MG/DL (0.2-1.0); TOTAL PROTEIN 5.1 GM/DL (6.4-8.2); TROPONIN I 0.23 NG/ML (0.02-0.05)
--- NOTE | 2017-08-04 13:17 | HHI.NPPN ---
Subjective History of Present Illness 76-year-old female with a history of dementia, schizophrenia, admitted to this institution on 08/01/17 with a blood pressure of 60/20, rectal bleeding, pancreatitis. Patient was acidotic with a total CO2 of 10.6. Has been on Levophed for inotropic support. Previous creatinine level back in November last year was 0.68. On presentation had a creatinine was 5.45. Has been hydrated aggressively on a sodium bicarbonate drip and creatinine level today was 3.63 with improved urinary output. CT scan showed no evidence of hydronephrosis. There were changes consistent with pancreatitis however. Patient presently too unstable to undergo ERCP per GI. Echocardiogram revealing an ejection fraction of 55-60%. Interval History Pt remained intubated, but sedation being weaned and is responsive. No new events as per RN (Delia Hansen) Review of Systems General General Remarks Unable to obtain 2/2 to clinical condition (Delia Hansen) Objective Data Data Vital Signs Date Time Temp Pulse Resp B/P (MAP) Pulse Ox O2 Delivery O2 Flow Rate FiO2 08/04/17 12:00 73 08/04/17 12:00 45 08/04/17 11:33 99 45 08/04/17 11:00 99.3 72 14 108/54 (72) 99 117/52 (73) 08/04/17 10:00 71 08/04/17 08:36 75 124/49 08/04/17 08:00 45 08/04/17 08:00 69 08/04/17 07:53 100 45 08/04/17 07:00 99.4 77 12 109/44 (65) 99 110/47 (68) 08/04/17 06:00 69 08/04/17 05:15 74 114/47 08/04/17 04:45 72 117/48 08/04/17 04:35 100 50 08/04/17 04:30 72 12 111/55 (73) 100 117/48 (71) 08/04/17 04:15 74 13 116/49 (71) 99 08/04/17 04:00 99.6 72 12 108/56 (73) 99 117/47 (70) 08/04/17 04:00 72 08/04/17 04:00 52 08/04/17 04:00 72 117/47 6/3/18 03:45 74 12 108/46 (66) 99 6/3/18 03:30 72 12 104/53 (70) 99 112/46 (68) 6/3/18 03:15 76 111/47 6/3/18 03:15 76 111/47 6/3/18 03:15 76 12 111/47 (68) 99 6/3/18 03:00 72 12 109/55 (73) 99 119/48 (71) 6/3/18 03:00 72 119/48 6/3/18 03:00 72 119/48 6/3/18 02:45 71 12 115/48 (70) 99 6/3/18 02:30 74 12 104/53 (70) 100 115/47 (69) 6//18 02:15 75 12 111/46 (67) 99 6/3/18 02:00 82 12 102/56 (71) 98 108/50 (69) 6/3/18 02:00 75 6/3/18 01:45 75 12 119/47 (71) 99 6//18 01:30 77 12 108/54 (72) 99 119/47 (71) 6//18 01:15 80 12 114/46 (68) 99 6/3/18 01:00 87 17 138/62 (87) 100 138/56 (83) 6/3/18 01:00 87 138/56 6/3/18 01:00 87 138/56 6/3/18 00:57 100 50 6/3/18 00:45 85 12 129/51 (77) 97 6/3/18 00:30 79 12 113/56 (75) 98 125/48 (73) 6/3/18 00:15 82 12 116/46 (69) 97 6/3/18 00:15 82 116/46 6/3/18 00:00 100.0 90 13 110/54 (72) 97 108/46 (66) 6/3/18 00:00 52 6/3/18 00:00 90 6/2/18 23:45 91 14 110/46 (67) 97 6/2/18 23:30 80 14 114/56 (75) 97 113/46 (68) 6/2/18 23:30 80 113/46 6/2/18 23:15 77 12 108/43 (64) 97 6/2/18 23:15 77 108/43 6/2/18 23:00 79 12 106/55 (72) 97 117/44 (68) 6/2/18 23:00 77 117/44 6/2/18 22:45 79 12 127/46 (73) 98 6/2/18 22:45 79 127/46 6/2/18 22:30 80 12 112/53 (72) 98 125/44 (71) 6/2/18 22:15 80 12 123/45 (71) 98 6/2/18 22:00 75 6/2/18 22:00 75 12 117/56 (76) 98 144/48 (80) 6/2/18 22:00 75 144/48 6/2/18 21:45 75 12 135/44 (74) 99 6/2/18 21:30 75 12 127/60 (82) 98 147/49 (81) 6/2/18 21:15 75 12 152/49 (83) 98 6/2/18 21:00 77 12 128/60 (82) 98 151/51 (84) 6/2/18 21:00 77 151/51 6/2/18 20:45 75 12 155/51 (85) 97 6/2/18 20:30 76 12 127/60 (82) 97 153/51 (85) 6/2/18 20:30 75 153/51 6/2/18 20:15 75 12 132/45 (74) 97 6/2/18 20:15 75 132/45 6/2/18 20:15 75 132/45 6/2/18 20:04 76 13 106/55 (72) 100 121/42 (68) 6/2/18 20:00 101.0 76 21 136/51 (79) 88 6/2/18 20:00 52 6/2/18 20:00 75 6/2/18 20:00 76 136/51 6/2/18 20:00 76 136/51 6/2/18 19:56 98 50 6/2/18 19:45 73 12 113/57 (75) 98 6/2/18 19:30 76 12 97 6/2/18 19:25 79 16 112/56 (74) 99 6/2/18 19:20 74 19 113/59 (77) 100 08/03/17 19:15 74 12 100 08/03/17 19:15 75 105/55 08/03/17 19:15 75 105/55 08/03/17 19:06 74 12 110/54 (72) 100 08/03/17 19:00 75 107/55 08/03/17 19:00 75 107/55 08/03/17 19:00 75 13 111/53 (72) 100 08/03/17 17:00 50 08/03/17 16:00 70 08/03/17 15:22 100 100 08/03/17 15:07 100 50 08/03/17 15:00 98.4 80 16 108/52 (70) 98 115/52 (73) 08/03/17 14:37 77 100/43 08/03/17 14:00 78 08/03/17 13:17 79 88/60 (Delia Hansen) -: 08/04/17 0420 08/04/17 1020 Imaging Last Impressions Lower Extremity Ultrasound 08/03/17 0000 Signed Impressions: CONCLUSION: 1. Extensive DVT of the right lower extremity. 2. No venous thrombosis of the left lower extremity. Hepatobiliary Scan Nuclear Medicine 08/03/17 0000 Signed Impressions: CONCLUSION: 1. No evidence of cystic duct or distal common bile duct obstruction. 2. Normal gallbladder ejection fraction. Chest X-Ray 08/03/17 0000 Signed Impressions: CONCLUSION: The lungs are significantly hypoinflated but better aerated as compared to the prior exam with interval intubation. Stable right-sided central line. Nasogastr ic tubing with the proximal port below the level the diaphragm. Cholangiopancreatography MRI 08/02/17 0000 Signed Impressions: CONCLUSION: 1. Gallstones with at least one stone in the common duct 2. Pancreas poorly visualized because of motion. 3. Fluid present in the lesser sac consistent with pancreatitis. Head Magnetic Resonance Angiography 08/01/17 Signed Impressions: CONCLUSION: 1. Negative MRA Cow ([place] of [place]) non contrast. Head CT 08/01/17 Signed Impressions: CONCLUSION: 1. No acute intracranial abnormality is identified. 2. However, there is encephalomalacia in the left parietal region and there is generalized atrophy with severe periventricular white matter low-attenuation c haracteristic of chronic microvascular ischemia. Carotid Artery Ultrasound 08/01/17 0000 Signed Impressions: CONCLUSION: 1. Right Internal Carotid Artery: Findings indicate <50% stenosis. 2. Left Internal Carotid Artery: Findings indicate <50% stenosis. Brain MRI 08/01/17 Signed Impressions: CONCLUSION: 1. Questionable tiny subacute lacunar infarcts posterior periventricular white matter. Moderate to severe chronic ischemic changes in the periventricular whi te matter. Remote left parietal lobe infarct. Abdomen/Pelvis CT 08/01/17 Signed Impressions: CONCLUSION: 1. The pancreas is abnormal with enlargement and peripancreatic inflammation a nd edema characteristic of acute pancreatitis. There is a small volume of free fluid in the abdomen and pelvis. 2. Cholelithiasis without pancreatic duct dilatation. 3. There is mild wall thickening of the inferior rectum with associated presac ral edema. 4. Small bilateral pleural effusions with associated compressive atelectasis. 5. There is a compression deformity of uncertain chronicity involving L3 and c ompression deformity with sclerosis involving T9. Tubes & Lines: Mary Medication Review Current Medications Medications (Trade) Dose Ordered Sig/Nadia Route Start Time Stop Time Status Last Admin (NovoLOG SUPPLEMENTAL SCALE) 1 ACHS SQ 08/01/17 21:00 08/03/17 17:00 (D50w (Vial) Inj) 50 ml UNSCH PRN IV PUSH 08/01/17 20:00 (Glucagon Inj) 1 mg UNSCH PRN OTHER 08/01/17 20:00 (Lopid) 600 mg BIDAC PO 08/02/17 07:00 08/02/17 07:00 (risperDAL) 0.5 mg HS PO 08/01/17 22:00 (Zoloft) 100 mg DAILY PO 08/02/17 09:00 08/04/17 09:29 (risperDAL) 2 mg HS PO 08/01/17 22:00 Future Hold (NS Flush) 2 ml UNSCH PRN IV FLUSH 08/01/17 21:15 (NS Flush) 2 ml BID IV FLUSH 08/02/17 09:00 08/04/17 09:29 (Tylenol) 650 mg Q6H PRN PO 08/01/17 21:15 08/03/17 22:58 (Dilaudid Pf Inj) 1 mg Q4H PRN IV PUSH 08/01/17 21:15 08/02/17 04:11 (Zofran Inj) 4 mg Q6H PRN IV PUSH 08/01/17 21:15 (Restoril) 15 mg HS PRN PO 08/01/17 21:15 Future Hold ([facility] Nursing Information) 1 Q361D XX 08/01/17 21:15 (Chlorhexidine 2% Cloth) 3 pack Taper DAILY@04 TOP 08/02/17 04:00 07/29/18 03:59 08/04/17 04:00 (Chlorhexidine 2% Cloth) 3 pack UNSCH PRN TOP 08/01/17 21:15 (Guillermina-Colace) 1 tab BID PO 08/02/17 09:00 08/04/17 09:29 (Milk Of Magnesia Liq) 30 ml Q12H PRN PO 08/01/17 21:15 (Senokot) 17.2 mg Q12H PRN PO 08/01/17 21:15 (Dulcolax Supp) 10 mg DAILY PRN RECTAL 08/01/17 21:15 (Lactulose Liq) 30 ml DAILY PRN PO 08/01/17 21:15 Pharmacy Profile Note 0 ml @ 0 mls/hr UNSCH OTHER 08/01/17 21:15 Aztreonam 2000 mg/ Sodium Chloride 100 ml @ 200 mls/hr Q8H IV 08/01/17 22:00 08/04/17 05:15 Metronidazole 100 ml @ 100 mls/hr Q8H IV 08/01/17 22:00 08/04/17 05:16 (Protonix Inj) 40 mg Q12H IV PUSH 08/02/17 00:00 08/04/17 12:19 Norepinephrine Bitartrate 250 ml @ 7.5 mls/hr TITRATE PRN IV 08/02/17 19:45 08/03/17 13:17 Fentanyl Citrate 250 ml @ 5 mls/hr TITRATE PRN IV 08/03/17 10:00 08/04/17 08:18 (Peridex 0.12% Liq) 15 ml BID@08,20 MT 08/03/17 20:00 08/04/17 08:22 (Duoneb Neb) 1 ampule Q6HR NEB NEB 08/03/17 16:00 08/04/17 07:53 (Duoneb Neb) 1 ampule Q2HR NEB PRN NEB 08/03/17 10:45 Phenylephrine HCl 80 mg/Dextrose 500 ml @ 15 mls/hr TITRATE PRN IV 08/03/17 14:00 08/04/17 08:36 (Brethine Inj) 1 mg UNSCH PRN SQ 08/03/17 14:00 Sodium Bicarbonate 75 meq/Potassium Chloride 20 meq/ Sodium Chloride 1,085 ml @ 85 mls/hr [id number] IV 08/03/17 16:00 08/04/17 04:11 Propofol 100 ml @ 2.403 mls/ hr TITRATE PRN IV 08/03/17 16:15 08/03/17 19:00 (Delia Hansen) Physical Exam General Appearance: No Acute Distress, Comfortable (Delia Hansen) Neck Neck Exam: Neck Supple, Trachea Midline (Delia Hansen) Pulmonary Resp Exam: Clear Bilaterally, Breath Sounds Equal (Delia Hansen) Cardiology CV Exam: Regular, Normal Sinus Rhythm (Delia Hansen) Gastrointestinal/Abdomen GI Exam: Soft, Distended (Delia Hansen) Extremeties Extremities Exam: No Edema (Delia Hansen) Neurologic Neuro Exam: Awake (Delia Hansen) Assessment/Plan Problem List: (1) Acute renal failure ICD Codes: N17.9 - Acute kidney failure, unspecified Status: Acute Plan: Secondary to dehydration, shock syndrome and sepsis. Pressors being weaned SCr improving and UOP brisk If renal functions continue to improve, we will see the patient PRN Medications should be adjusted for the patient's estimated GFR if clinically indicated. Avoid agents with significant potential for nephrotoxicity possible including NSAIDs for analgesia, iodine contrast agents. Gadolinium is contraindicated if the GFR is below 30. (2) Metabolic acidosis ICD Codes: E87.2 - Acidosis Status: Acute Plan: Resolved K+ repletion as ordered (Delia Hansen) Problem List: (1) Acute renal failure ICD Codes: N17.9 - Acute kidney failure, unspecified Status: Acute Plan: Secondary to dehydration, shock syndrome and sepsis. Pressors being weaned SCr improving and UOP brisk If renal functions continue to improve, we will see the patient PRN Medications should be adjusted for the patient's estimated GFR if clinically indicated. Avoid agents with significant potential for nephrotoxicity possible including NSAIDs for analgesia, iodine contrast agents. Gadolinium is contraindicated if the GFR is below 30. (2) Metabolic acidosis ICD Codes: E87.2 - Acidosis Status: Acute Plan: Resolved K+ repletion as ordered Plan The exam, history, and the medical decision-making described in the above note were completed with the assistance of the SAPPHIRE. I reviewed and agree with the findings presented. I attest that I had a [id number] encounter with the patient on the same day, and personally performed and documented my assessment and findings in the medical record. (Samantha Sheridan MD) Delia Hansen Aug 04, 2017 13:17 Samantha Sheridan MD Aug 04, 2017 16:57
--- NOTE | 2017-08-04 15:46 | EKG ---
Date Performed: 08/03/2017 Time Performed: 14:11:27 PTAGE: 76 years EKG: Sinus rhythm Left axis deviation Poor R-wave progression across the precordium Low QRS voltage in precordial lead s Nonspecific T-wave changes Possible LVH PREVIOUS TRACING : 08/01/2017 19.46 Since previous tracing, no significant change. DOCTOR: Michael Cha Interpretating Date/Time 08/04/2017 15:45:13
--- NOTE | 2017-08-04 15:53 | HHI.CCPN ---
Subjective Remarks/Hospital Course 76-year-old pleasantly demented female, senior living resident. The patient was noted earlier today to have a sudden onset of right gaze, as well as right- sided weakness. She was also found to be very hypotensive. Initial blood pressure 60/20, which responded to fluids and increased to 90/60. She presented to the hospital as a stroke-alert. The MRI of brain obtained in the emergency department showed only questionable tiny subacute lacunar infarcts posterior periventricular white matter. Moderate to severe chronic ischemic changes in the periventricular white matter. Remote left parietal lobe infarct. The CT of the abdomen and pelvis however shows the abnormal pancreas with enlargement and peripancreatic inflammation and edema characteristic of acute pancreatitis. Cholelithiasis without pancreatic duct dilatation. 08/02: Afebrile. Patient continues to have severe metabolic acidosis sodium bicarbonate infusion continued. Patient on nonrebreather continuing to be weaned down . Patient bolused with 500 cc normal saline 1 this a.m.. Oliguric 150 cc urine output in the last 12 hours. Unable to assess the amount of IV fluid patient was given in the ED and overnight. No hematemesis or melena this a.m. Patient continues on Protonix twice daily. Patient currently on nonrebreather mask currently being weaned down O2 saturation 100% though PaO2 is 155. Triglycerides are pending. MRI is pending. 2: Afebrile. Overnight patient became hemodynamically unstable, central line placed patient currently on Levophed 12 mcgs/min. The patient FIO2 requirements are increasing, intubation planned. Echo report last night showed RV mildly dilated with RV systolic function mildly decreased. Concern for possible PE, however patient not a candidate in the setting of GI Bleed. Hgb and Hct trend stable. Metabolic acidosis resolved with NaHCO3 infusion, now decreased. Patient 's SVV continued elevation and BUN 77. Pt bolused IVF's this am. UOP, creatinine slightly improved overnight. Electrolytes being replaced and closely monitored. Discussed with GI AKI Spence after her discussion with Dr. Sanchez this am plan is for MRCP today by GI or Invasive Radiology. --> report indicates stone in CBD without ductal dilatation Subjective: 6 Off levophed, remainsn on neosynephrine 80 mcg/min. RLE u/s shows extensive RLE DVT. No BMs overnight. Discussed with gastroenterology, Dr. Sanchez, who agrees with starting heparin drip and monitor closely for bleeding. HIDA scan yesterday shows no evidence of obstruction. LFTS trending down so GI has canceled IR consult for percutaneous transhepatic biliary drain. Creatinine down trending and urine output improved. Objective Vital Signs Date Time Temp Pulse Resp B/P (MAP) Pulse Ox O2 Delivery O2 Flow Rate FiO2 08/04/17 15:01 99 40 08/04/17 15:00 99.3 76 12 114/70 (85) 125/47 (73) 08/01/17 20:30 Non-Rebreather 15.00 Intake and Output 08/04/17 08/04/17 08/05/17 08:00 16:00 00:00 Intake Total 2403 ml Output Total 1100 ml Balance 1303 ml Result Diagram: 08/04/17 0420 08/04/17 1020 Other Results Microbiology Date/Time Source Procedure Growth Status 08/01/17 21:10 Urine Catheterized Urine Urine Culture - Final NO GROWTH IN 48 HOURS. Complete Laboratory Tests Test 08/03/17 16:00 Blood Gas Puncture Site ART LINE Blood Gas Patient Temperature 98.6 Blood Gas HCO3 25 mmol/L (22-26) Blood Gas Base Excess 1.9 mmol/L (-2-2) Blood Gas Oxygen Saturation 94 % (90-100) Arterial Blood pH 7.48 (7.380-7.420) Arterial Blood Partial Pressure CO2 34 mmHg (38-42) Arterial Blood Partial Pressure O2 76 mmHg (61-120) Arterial Blood Oxygen Content 14.3 Vol % (12.0-20.0) Arterial Blood Carboxyhemoglobin 1.1 % (0-4) Arterial Blood Methemoglobin 1.3 % (0-2) Blood Gas Hemoglobin 10.8 G/DL (12.0-16.0) Oxygen Delivery Device VENTILATOR Blood Gas Ventilator Setting PRVC/AC Blood Gas Inspired Oxygen 50 % Imaging Last [address] 08/01/17 0000 Signed Impressions: CONCLUSION: 1. No acute intracranial abnormality is identified. 2. However, there is encephalomalacia in the left parietal region and there is generalized atrophy with severe periventricular white matter low-attenuation c haracteristic of chronic microvascular ischemia. Chest X-Ray 08/01/17 0000 Signed Impressions: CONCLUSION: Underinflated examination with small bilateral pleural effusions with compressi ve atelectasis at the lung bases. Carotid Artery Ultrasound 08/01/17 0000 Signed Impressions: CONCLUSION: 1. Right Internal Carotid Artery: Findings indicate <50% stenosis. 2. Left Internal Carotid Artery: Findings indicate <50% stenosis. Abdomen/Pelvis CT 08/01/17 0000 Signed Impressions: CONCLUSION: 1. The pancreas is abnormal with enlargement and peripancreatic inflammation a nd edema characteristic of acute pancreatitis. There is a small volume of free fluid in the abdomen and pelvis. 2. Cholelithiasis without pancreatic duct dilatation. 3. There is mild wall thickening of the inferior rectum with associated presac ral edema. 4. Small bilateral pleural effusions with associated compressive atelectasis. 5. There is a compression deformity of uncertain chronicity involving L3 and c ompression deformity with sclerosis involving T9. Objective Remarks Drips: Fentanyl 100 mcg/h Propofol is off Arnol-Synephrine 80 mcg/min 0.45 NaCl with 75 mEq of bicarb per liter at 85 mL/h Cardiac output 5.5,, SVV 9. GENERAL: This is a well-nourished, well-developed elderly female patient, awakens and follows commands on sedation. Orotracheally intubated. SKIN: No rashes, ecchymoses or lesions. Dry. HEAD: Atraumatic. Normocephalic. No temporal or scalp tenderness. EYES: Resists eye opening, pupils 2 mm equal round and reactive. Extraocular motions intact. No scleral icterus. No injection or drainage. NECK: Trachea midline. No JVD or lymphadenopathy. CARDIOVASCULAR: Regular rate and rhythm with soft murmurs, no gallops, no rubs. RESPIRATORY: Orotracheally intubated on mechanical ventilation. No rales. No wheeze. GASTROINTESTINAL: Abdomen soft, non-tender, mildly distended. No rebound or guarding. MUSCULOSKELETAL: Extremities without clubbing, cyanosis. 1+ edema of all extremities. NEUROLOGICAL: Awakes to voice, makes eye contact. Follows commands with hand squeeze bilaterally and moves bilateral feet. Date of Insertion: Aug 02, 2017 Date of Insertion: Aug 03, 2017 A/P Assessment and Plan Plan by systems: Neurologic: Acute left lacunar stroke History of previous CVA Schizophrenia Depression 08/02 MRI-moderate to severe ischemic changes. Tiny subacute lacunar infarcts. Remote left parietal lobe infarct 6/1 MRA brain-negative 08/02-CT brain-no acute abnormality Carotids-<50% stenosis Patient is followed by neurology-Dr. Michelle Was not a candidate for TPA on admission due to acute GI bleed Risperidone-on hold Zoloft 100 mg p.o. daily Respiratory: Acute hypoxemic respiratory failure Intubated 08/03 On PRVC Duo nebs every 6 hours scheduled every 2 hours as needed Ventilator bundle 08/02 CT-small bilateral pleural effusions bases D-dimer elevated.-suspicion for PE given the echo results-unable to do CT angiogram due to acute kidney injury. Does have extensive right lower extremity DVT so needs anticoagulation. Has not had any further bleeding. Discussed with gastroenterology, Dr. Sanchez, who recommends proceed with anticoagulation with heparin at this time and will address bleeding if it occurs. Cardiovascular: Hypovolemic and septic shock secondary to acute pancreatitis Art line is in place with Flowtrack monitoring ongoing. SVV is 9. Levophed has been weaned off and she remains on Arnol-Synephrine. Will resume Levophed in view of RV dysfunction and wean off Arnol-Synephrine if tolerated. Titrate to mean arterial pressure greater than 65 CVP is 18 08/02 echo-right ventricle mildly dilated. Right ventricular systolic function mildly decreased. EF 55-60% 08/03-troponin increased 0.03->0.27. Possibly secondary to acute kidney injury, infection. Conceivably could be related to PE but would not use TPA at this time anyway due to bleeding risk and she is not a candidate for CT pulmonary angiogram due to acute kidney injury. Cardiology has evaluated, Dr. Tang. He has not recommended any further ischemic workup and has signed off. Mild hypertriglyceridemia is not the etiology of pancreatitis. Is on gemfibrozil 600 mg p.o. twice daily Renal: Acute hypokalemia Acute hypophosphatemia Acute kidney injury Maintain Mary catheter -- Strict I/Os K-Phos 30 mmol IV. Follow-up CMP and phosphorus in the morning. Nephrology following, Dr. Sheridan FEN/GI: Acute gallstone pancreatitis. Dyslipidemia GI bleed Elevated liver enzymes Chronic moderate protein calorie malnutrition 0.45 NaCl with 75 mEq of sodium bicarbonate infusion 84 cc/hr Broad-spectrum antibiotics 08/01 GI has been consulted Protonix twice daily Rectal wall thickening on the CT In ED patient was noted to have bright red blood per rectum. Was transfused 2 units packed red cells 08/01. Has not had any further bleeding. GI is not planning to scope at this time. Recommend proceed with anticoagulation for extensive DVT and possible PE and monitor closely for evidence of bleeding. 08/02- 1700 S/P MRI-at least one stone in the common bile duct. Dr. Mahoney spoke with Dr. Sanchez made him aware of patient's result. Further management per gastroenterology. 08/03: MRCP demonstrates gallstones with cysts CBD stone. No dilatation of CBD. Minimal gallbladder wall thickening with trace fluid 08/03 HIDA scanno evidence of cystic duct or distal common bile duct obstruction. Normal gallbladder ejection fraction. Lipase now normalized at 134. LFTs downtrending. It appears she has passed a stone. Albumin 1.8 Heme/ID: Acute blood loss anemia /2 GI bleed Persistent leukocytosis Monitor CBC Monitor H&H Transfuse for hemoglobin less than 7 Patient transfused 2 units packed red blood cells in the ED (08/01) Endocrine: Hyperglycemia hemoglobin A1c 5.6 Glucose monitoring per ICU protocol. Low-dose regimen -- SSI Prophylaxis: GI Prophylaxis Protonix BID DVT Prophylaxis -- SCDs -Hold pharmacological DVT prophylaxis due to acute GI bleed Lines: Right IJ central venous line 08/02 #3. Right radial art line in place, will need to remain in place for hemodynamic monitoring while weaning pressors. Only contact information I have for this patient is her brother, Davi Sood. Attempted to call him to provide update and to discuss risk benefits of anticoagulation. There is no answer. Patient has shown some signs of improvement but her prognosis remains guarded. She is not capacitated for medical decision-making. It appears there is no known healthcare surrogate/ proxy. Will consult palliative care. Discussed with Dr. Sanchez Patient is critically ill with ongoing shock and respiratory failure. She has extensive DVT requiring urgent anticoagulation and is at high risk for bleeding and high risk for further decompensation of shock. Critical care time 35 minutes exclusive of separately billable procedures. Fatuma Cotto MD Aug 04, 2017 15:53
[2017-08-04] MEDS ORDERED: SODIUM PHOSPHATE INJ 15 MMOL in SODIUM CHLORIDE 0.9% INJ 150 ML IV ONE (16:00)
[2017-08-04] MEDS: NOREPINEPHRINE 4 MG/D5W 250 ML IV PRN ×2 (16:40→22:49)
[2017-08-04 17:41] LABS: HEMATOCRIT 30.2 % (35.0-46.0); HEMOGLOBIN 10.4 GM/DL (11.6-15.3); MEAN CELL VOLUME 86.2 FL (80.0-100.0); MEAN CORPUSCULAR HEMOGLOBIN 29.7 PG (27.0-34.0); MEAN CORPUSCULAR HGB CONC 34.5 % (32.0-36.0); MEAN PLATELET VOLUME 8.7 FL (7.0-11.0); PLATELET COUNT 242 TH/MM3 (150-450); RED BLOOD COUNT 3.51 MIL/MM3 (4.00-5.30); RED CELL DISTRIBUTION WIDTH 13.8 % (11.6-17.2)
[2017-08-04 17:52] LABS: INTERNATIONAL NORMALIZED RATIO 1.6 RATIO; PROTHROMBIN TIME - PATIENT 16.1 SEC (9.8-11.6)
[2017-08-04] MEDS ORDERED: POTASSIUM PHOSPHATE INJ 30 MMOL in SODIUM CHLOR 0.9% 250 ML INJ 250 ML IV ONE (18:00)
[2017-08-04] MEDS: HEPARIN-D5W 25,000 U/250 ML 250 ML IV PRN (20:11)
[2017-08-04] MEDS: risperiDONE 0.5 MG TAB PO SCH (20:12)
[2017-08-05] VITALS (42 sets, daily range): BP systolic 94–139; BP diastolic 45–62; PULSE 63–87; RESP 12–13; TEMP 98.1–99.6; O2SAT 96–100
[2017-08-05 00:22] LABS: HEMATOCRIT 30.5 % (35.0-46.0); HEMOGLOBIN 10.2 GM/DL (11.6-15.3)
[2017-08-05] MEDS: PANTOPRAZOLE SODIUM 40 MG VIAL IV PUSH SCH ×2 (00:31→12:22)
[2017-08-05] MEDS: CHLORHEXIDINE GLUCONATE 2 % 1 PACK (2 CLOTHS) TOP SCH (03:58)
[2017-08-05] MEDS: metroNIDAZOLE 500 MG INJ 100 ML IV SCH ×3 (04:23→21:35)
[2017-08-05] MEDS: RESP: ALBUTEROL 2.5 MG/IPRATROPIUM 0.5 MG NEB (SCH) NEB ×4 (04:40→20:07)
[2017-08-05] MEDS: AZTREONAM INJ 2,000 MG in SODIUM CHLORIDE 0.9% INJ 100 ML IV SCH ×3 (05:02→21:35)
[2017-08-05] MEDS: [UNRECOGNIZED DRUG - OTHER] IV SCH ×2 (05:03→18:45)
[2017-08-05] MEDS: GEMFIBROZIL 600 MG TAB PO SCH ×2 (05:03→16:49)
[2017-08-05] MEDS: POTASSIUM CHLORIDE IV SCH ×2 (05:03→18:45)
[2017-08-05] MEDS: SODIUM BICARBONATE IV SCH ×2 (05:03→18:45)
[2017-08-05 05:33] LABS: AUTOMATED NEUTROPHIL # 21.2 TH/MM3 (1.8-7.7); BASOPHIL % 0.1 % (0.0-2.0); EOSINOPHIL # 0.1 TH/MM3 (0-0.4); EOSINOPHIL % 0.6 % (0.0-4.0); HEMATOCRIT 30.2 % (35.0-46.0); LYMPH % 4.8 % (9.0-44.0); LYMPHOCYTE # 1.1 TH/MM3 (1.0-4.8); MEAN CELL VOLUME 86.5 FL (80.0-100.0); MEAN CORPUSCULAR HEMOGLOBIN 28.8 PG (27.0-34.0); MEAN CORPUSCULAR HGB CONC 33.2 % (32.0-36.0); MEAN PLATELET VOLUME 8.9 FL (7.0-11.0); MONOCYTE # 1.2 TH/MM3 (0-0.9); NEUT % 89.5 % (16.0-70.0); PLATELET COUNT 240 TH/MM3 (150-450); RED BLOOD COUNT 3.49 MIL/MM3 (4.00-5.30); RED CELL DISTRIBUTION WIDTH 13.9 % (11.6-17.2); WHITE BLOOD COUNT 23.7 TH/MM3 (4.0-11.0)
[2017-08-05] MEDS: NOREPINEPHRINE 4 MG/D5W 250 ML IV PRN ×3 (06:03→21:36)
[2017-08-05 06:04] LABS: ALBUMIN 1.3 GM/DL (3.4-5.0); BICARBONATE 24.4 MEQ/L (21.0-32.0); CALCIUM-PROTEIN CORRECTED 8.1 MG/DL (8.5-10.1); CREATININE 1.55 MG/DL (0.50-1.00); PHOSPHORUS 2.6 MG/DL (2.5-4.9); RANDOM VANCOMYCIN 9.7 COMMENT; TOTAL BILIRUBIN ADULT 0.7 MG/DL (0.2-1.0); TOTAL PROTEIN 5.1 GM/DL (6.4-8.2)
[2017-08-05] MEDS: INSULIN ASPART SUPPLEMENTAL SCALE SQ SCH ×4 (08:00→20:22)
[2017-08-05] MEDS: SODIUM CHLORIDE 0.9% FLUSH 10 ML FLUSH IV FLUSH SCH ×2 (08:54→20:22)
[2017-08-05] MEDS: DOCUSATE SODIUM 50 MG/SENNA 8.6 MG TAB PO SCH ×2 (08:55→20:22)
[2017-08-05] MEDS: SERTRALINE HCL 100 MG TAB PO SCH (08:55)
[2017-08-05] MEDS: CHLORHEXIDINE 0.12% (ORAL KIT) 15 ML CUP MT SCH ×2 (08:55→19:19)
[2017-08-05] MEDS: fentaNYL DRIP 250 ML IV PRN (09:00)
--- NOTE | 2017-08-05 10:01 | HHI.GIFU ---
Subjective Remarks Pt remains intubated and sedated On Levophed for blood pressure support OG to LIWS with no output Pt on Heparin gtt for UE DVT (Babita Farrell) Objective Vitals I&O Vital Signs Date Time Temp Pulse Resp B/P (MAP) Pulse Ox O2 Delivery O2 Flow Rate FiO2 08/05/17 08:41 96 35 08/05/17 08:00 35 08/05/17 08:00 80 08/05/17 08:00 98.1 80 12 118/57 (77) 97 119/55 (76) 08/05/17 07:00 73 12 104/52 (69) 97 118/51 (73) 08/05/17 06:03 75 107/48 08/05/17 06:00 69 08/05/17 05:30 76 114/52 08/05/17 04:40 98 40 08/05/17 04:00 40 08/05/17 04:00 66 08/05/17 04:00 66 115/49 08/05/17 03:15 68 12 113/48 (69) 98 08/05/17 03:00 69 12 100/53 (69) 98 115/49 (71) 08/05/17 02:45 68 12 109/47 (67) 98 08/05/17 02:30 70 12 109/47 (67) 98 08/05/17 02:15 71 12 110/47 (68) 98 08/05/17 02:00 73 12 100/50 (67) 98 112/49 (70) 08/05/17 02:00 74 08/05/17 01:45 76 12 117/50 (72) 98 08/05/17 01:30 76 12 111/48 (69) 98 08/05/17 01:15 86 12 136/59 (84) 100 08/05/17 01:10 100 40 08/05/17 01:00 71 12 98/55 (69) 99 114/48 (70) 08/05/17 00:45 74 12 101/45 (63) 99 18 00:30 72 12 125/52 (76) 98 18 00:30 72 125/52 08/05/17 00:15 73 12 117/50 (72) 99 08/05/17 00:00 40 6/4/18 00:00 99.3 74 12 103/52 (69) 98 123/51 (75) 6/4/18 00:00 74 6/3/18 23:45 74 12 114/48 (70) 99 6/3/18 23:30 77 12 110/47 (68) 99 6/3/18 23:15 75 12 129/52 (77) 98 6/3/18 23:15 72 129/52 6/3/18 23:00 72 12 110/54 (72) 99 124/51 (75) 6/3/18 22:49 74 120/49 6/3/18 22:45 75 12 126/51 (76) 99 6/3/18 22:30 74 12 114/48 (70) 99 6/3/18 22:15 75 12 116/49 (71) 99 6/3/18 22:00 78 12 98/54 (69) 99 114/49 (70) 6/3/18 22:00 81 6/3/18 21:45 78 12 110/47 (68) 98 6/3/18 21:30 79 12 109/47 (67) 98 6/3/18 21:15 81 12 112/48 (69) 98 6/3/18 21:00 82 12 100/53 (69) 98 105/47 (66) 6/3/18 20:45 81 12 105/46 (65) 98 6/3/18 20:30 87 12 116/49 (71) 98 6/3/18 20:15 85 12 126/54 (78) 98 6/3/18 20:03 98 40 6/3/18 20:00 81 6/3/18 20:00 99.5 81 12 107/55 (72) 98 120/51 (74) 6/3/18 20:00 81 120/51 6/3/18 20:00 40 6/3/18 19:45 83 13 100/43 (62) 98 6/3/18 19:30 76 12 97/55 (69) 97 104/42 (62) 6/3/18 19:15 79 12 111/44 (66) 97 6/3/18 19:00 77 108/43 6/3/18 19:00 77 12 101/51 (68) 97 108/43 (64) 6/3/18 18:00 72 6/3/18 16:40 70 111/48 08/04/17 16:00 63 08/04/17 16:00 40 08/04/17 15:01 99 40 08/04/17 15:00 99.3 76 12 114/70 (85) 125/47 (73) 08/04/17 15:00 40 08/04/17 14:00 63 08/04/17 12:00 73 08/04/17 12:00 45 08/04/17 11:33 99 45 08/04/17 11:00 99.3 72 14 108/54 (72) 99 117/52 (73) 08/04/17 10:00 71 I/O 08/04/17 08/04/17 08/04/17 08/05/17 08/05/17 08/05/17 07:00 15:00 23:00 07:00 15:00 23:00 Intake Total 2403 ml 1855 ml 1871 ml 250 ml Output Total 1100 ml 950 ml 650 ml Balance 1303 ml 905 ml 1221 ml 250 ml IV Total 2403 ml 1755 ml 1871 ml 250 ml Tube Irrigant 100 ml Output Urine Total 1100 ml 950 ml 650 ml # Bowel Movements 0 0 0 Laboratory Laboratory Tests Test 08/04/17 10:20 08/04/17 17:15 08/04/17 23:15 08/05/17 05:10 Blood Urea Nitrogen 56 45 Creatinine 2.11 1.55 Random Glucose 125 140 Total Protein 5.1 5.1 Albumin 1.4 1.3 Calcium Level 7.3 7.0 Phosphorus Level 1.6 2.6 Magnesium Level 2.2 Alkaline Phosphatase 83 83 Aspartate Amino Transf (AST/SGOT) 32 28 Alanine Aminotransferase (ALT/SGPT) 95 73 Total Bilirubin 0.7 0.7 Sodium Level 144 143 Potassium Level 3.4 3.3 Chloride Level 107 106 Carbon Dioxide Level 22.6 24.4 Anion Gap 14 13 Estimat Glomerular Filtration Rate 23 32 Protein Corrected Calcium 8.4 8.1 Troponin I 0.23 Lipase 134 119 White Blood Count 22.0 23.7 Red Blood Count 3.51 3.49 Hemoglobin 10.4 10.2 10.0 Hematocrit 30.2 30.5 30.2 Mean Corpuscular Volume 86.2 86.5 Mean Corpuscular Hemoglobin 29.7 28.8 Mean Corpuscular Hemoglobin Concent 34.5 33.2 Red Cell Distribution Width 13.8 13.9 Platelet Count 242 240 Mean Platelet Volume 8.7 8.9 Prothrombin Time 16.1 Prothromb Time International Ratio 1.6 Activated Partial Thromboplast Time 33.5 52.8 157.1 Neutrophils (%) (Auto) 89.5 Lymphocytes (%) (Auto) 4.8 Monocytes (%) (Auto) 5.0 Eosinophils (%) (Auto) 0.6 Basophils (%) (Auto) 0.1 Neutrophils # (Auto) 21.2 Lymphocytes # (Auto) 1.1 Monocytes # (Auto) 1.2 Eosinophils # (Auto) 0.1 Basophils # (Auto) 0.0 CBC Comment DIFF FINAL Differential Comment Random Vancomycin Level 9.7 Test 08/05/17 08:00 Activated Partial Thromboplast Time 58.8 Date/Time Source Procedure Growth Status 08/01/17 22:05 Blood Peripheral Aerobic Blood Culture - Preliminary NO GROWTH IN 3 DAYS Resulted 08/01/17 22:05 Blood Peripheral Anaerobic Blood Culture - Preliminary NO GROWTH IN 3 DAYS Resulted 08/01/17 21:10 Urine Catheterized Urine Urine Culture - Final NO GROWTH IN 48 HOURS. Complete Imaging Last Impressions Lower Extremity Ultrasound 08/03/17 Signed Impressions: CONCLUSION: 1. Extensive DVT of the right lower extremity. 2. No venous thrombosis of the left lower extremity. Hepatobiliary Scan Nuclear Medicine 08/03/17 Signed Impressions: CONCLUSION: 1. No evidence of cystic duct or distal common bile duct obstruction. 2. Normal gallbladder ejection fraction. Chest X-Ray 08/03/17 Signed Impressions: CONCLUSION: The lungs are significantly hypoinflated but better aerated as compared to the prior exam with interval intubation. Stable right-sided central line. Nasogastr ic tubing with the proximal port below the level the diaphragm. Cholangiopancreatography MRI 08/02/17 Signed Impressions: CONCLUSION: 1. Gallstones with at least one stone in the common duct 2. Pancreas poorly visualized because of motion. 3. Fluid present in the lesser sac consistent with pancreatitis. Head Magnetic Resonance Angiography 08/01/17 Signed Impressions: CONCLUSION: 1. Negative MRA [place] ([place]) non contrast. Head CT 08/01/17 Signed Impressions: CONCLUSION: 1. No acute intracranial abnormality is identified. 2. However, there is encephalomalacia in the left parietal region and there is generalized atrophy with severe periventricular white matter low-attenuation c haracteristic of chronic microvascular ischemia. Carotid Artery Ultrasound 08/01/17 Signed Impressions: CONCLUSION: 1. Right Internal Carotid Artery: Findings indicate <50% stenosis. 2. Left Internal Carotid Artery: Findings indicate <50% stenosis. Brain MRI 08/01/17 Signed Impressions: CONCLUSION: 1. Questionable tiny subacute lacunar infarcts posterior periventricular white matter. Moderate to severe chronic ischemic changes in the periventricular whi te matter. Remote left parietal lobe infarct. Abdomen/Pelvis CT 08/01/17 Signed Impressions: CONCLUSION: 1. The pancreas is abnormal with enlargement and peripancreatic inflammation a nd edema characteristic of acute pancreatitis. There is a small volume of free fluid in the abdomen and pelvis. 2. Cholelithiasis without pancreatic duct dilatation. 3. There is mild wall thickening of the inferior rectum with associated presac ral edema. 4. Small bilateral pleural effusions with associated compressive atelectasis. 5. There is a compression deformity of uncertain chronicity involving L3 and c ompression deformity with sclerosis involving T9. Physical Exam HEENT: Normocephalic; atraumatic CHEST: Respirations synchronized with vent, ETT CARDIAC: RRR ABDOMEN: Distended, semi-firm, soft, bowel sounds active SKIN: Normal; no rash; no jaundice. TEAM ASSISTANT: Sedated (Babita Farrell) Assessment and Plan Plan Assessment: - Rectal bleeding- Bloody BM witness in ER, pt received 2 U PRBCs H/H currently 11.7/35.2- pt presented to with right sided gaze and weakness, seen by neurology who reports not a candidate for TPA given bloody stools. Also recommended withholding anticoagulants or antiplatelets because of this. Pt unable to provide history, dementia and stroke- no previous records revealing history of GIB, colonoscopy, or EGD. CT reveals mild wall thickening of the inferior rectum with associated presacral edema - Pancreatitis- [id number] with elevated LFTs and metabolic acidosis (08/01) AST-92 ALT-350 Alk phos-89 T bili-0.9 CT abdomen and pelvis WO IV contrast --> The pancreas is abnormal with enlargement and peripancreatic inflammation and edema characteristic of acute pancreatitis. There is a small volume of free fluid in the abdomen and pelvis. Cholelithiasis without pancreatic duct dilatation. ? Biliary pancreatitis, ? medication induced (Lisinopril, Zoloft, Risperidone) Lipid panel pending - R sided gaze and R sided weakness- neurology following- no anticoagulants given reports of GIB (08/03) Pt now on Levophed for blood pressure support. Increase in leukocytosis noted, on Aztreonam and Flagyl. Also on 7 L simple mask. No BMs documented overnight, H/H remains stable. MRCP noted --> Gallstones with at least one stone in the common duct. Pancreas poorly visualized because of motion. Fluid present in the lesser sac consistent with pancreatitis. LFTs trending down AST-61 ALT-173 Alk phos-91 T bili-0.7 Lipase trending down- 422 Consult placed to IR for percutaneous transhepatic biliary drain, labs trending down revealing no obstruction, no need for STAT consult (08/04) Pt is now intubated, awake on the vent, in no apparent distress. She is on Arnol for blood pressure support. Labs from today pending, but LFTs have been trending down revealing no obstruction, will cancel IR consult and continue to monitor (08/05) Pt remains intubated and sedated. On Levophed for blood pressure support. LFTs continued to trend down, lipase WNL. Pt has had no continued reports of rectal bleeding, Heparin gtt was started for UE DVT. H/H remains stable over night. Plan: Monitor LFTs Abx per [facility] Pt on Heparin gtt for DVT, no continued rectal bleeding, no plans for colonoscopy at this time OK to start TF Nutrition consult for recommendations Recommend GS at some point for cholecystectomy when stable, given biliary pancreatitis GI will sign off, please reconsult as needed Pt has been seen and examined by myself and Dr. Sanchez and this note is written on his behalf (Babita Farrell) Physician Comments As above, given overall condition, will sign off for now and please reconsult when more stable for ERCP. (Trinh Sanchez MD) Babita Farrell Aug 05, 2017 10:01 Trinh Sanchez MD Aug 05, 2017 14:42
[2017-08-05] MEDS ORDERED: VANCOMYCIN INJ 1,250 MG in SODIUM CHLOR 0.9% 250 ML INJ 250 ML IV ONE (13:00)
--- NOTE | 2017-08-05 16:36 | PD.CONS ---
Consult Service Palliative Care Consult Requested By Dr. Cotto Primary Care Physician Unknown Reason for Consultation A. To assist with evaluation and management of symptoms including:Weakness, altered mental status b. To assist medical decision maker(s) with: better understanding of current medical conditions; weighing benefits/burdens of medical treatment options; making medical treatment decisions. (Abigail Quigley) HPI History of Present Illness This is a 76-year-old female resident of [facility] who was found to be hypoxic, altered and hypotensive at the facility 08/01 and EMS was summoned. She wasA&O 0, GCS 10, with altered mental status for the prior hour , per the staff. Her presenting blood pressure was 62/20, patient's lips were found to be cyanotic with delayed capillary refill. She receives oxygen and fluid resuscitation on site during transport to the ED. Per staff on the scene the patient had just been prescribed Levaquin and Zofran 3 days prior for an unknown complaint. Upon presentation she was given 900 cc of normal saline and presented with equal pupils at 3 mm each with sluggish reactivity, right-sided gaze, unable to follow commands, right arm and bilateral lower extremity flaccidity. There was no previous history of a stroke. After resuscitative efforts oxygen saturation was 91% and she was placed on a 15 L nonrebreather. During transport patient began to regain some muscle tone in her right arm and was able to look to the left. Presenting electrocardiogram showed sinus rhythm with a marked left axis deviation, low QRS voltage in precordial leads, possible LVH and nonspecific ST and T-wave abnormalities. She was seen in the ED by neurologist, Dr. Michelle, and TPA was not given as patient had a guaiac positive stool, consistent with a GI bleed on ED evaluation. She was not a candidate for CT angiogram because of her renal failure and was unable to receive anticoagulants or platelet inhibitors due to a probable GI bleed. An EEG, echocardiogram, carotid ultrasound and brain MRI without contrast were ordered for further evaluation. EEG showed moderate slowing of background, consistent with encephalopathy. No epileptic activity. Brain MRI showed questionable, tiny, subacute lacunar infarcts posterior periventricular white matter with moderate to severe chronic ischemic changes in the periventricular white matter. Remote left parietal lobe infarct. ED course * Radiology: * Head CT showed no acute intracranial abnormality, with encephalomalacia in the left parietal region, generalized atrophy with severe periventricular white matter low attenuation, characteristic of chronic microvascular ischemia. * Chest x-ray showed underinflated examination with small bilateral pleural effusions with compressive atelectasis at the lung bases. * Carotid ultrasound showed less than 50% stenosis bilaterally. * CT of the abdomen and pelvis showed enlargement of the pancreas with peripancreatic inflammation and edema, characteristic of acute pancreatitis with small volume of free fluid in the abdomen and pelvis. Cholelithiasis without pancreatic duct dilation, mild wall thickening of the inferior rectum with associated presacral edema, small bilateral pleural effusions with associated compressive atelectasis and compression deformity of uncertain chronicity involving L3 and compression deformity with sclerosis involving T9. * Laboratory: WBC 20.9, hemoglobin 10.0, hematocrit 30.1, platelets 226, sodium 135, potassium 3.4, BUN 110, creatinine 6.5, AST 92, ALT 350, alkaline phosphatase 89, lipase 1442, troponin less than 0.02, arterial blood gas pH 7.27 , PCO2 31, PaO2 189, HCO3 14, base excess -12.1, saturation 97% on 100% nonrebreather. Urinalysis showed a dark brown cloudy specimen with a specific gravity of 1.022, 100 mg/dL of protein, large occult blood, large leukocyte esterase, few bacteria with indicated culture. Urine drug screen was negative. She was subsequently admitted to the critical care service with a diagnosis of sepsis, acute pancreatitis, GI bleed with resultant anemia and hypotension. She was treated with aggressive fluid resuscitation, vasopressor support and administration of sodium bicarbonate. On 08/03 she became unstable from a respiratory standpoint and required endotracheal intubation. She was evaluated by gastroenterology and underwent MRCP showing gallstones with at least one stone in the common duct, poorly visualized pancreas secondary to motion artifact and fluid present in the lesser sac, consistent with pancreatitis. She subsequently underwent HIDA scan showing no evidence of cystic duct or distal common bile duct obstruction and normal gallbladder ejection fraction. She was found to have a right lower extremity DVT and required heparin drip. She sustained no continued rectal bleeding, in spite of anticoagulation. Per GI there are no plans for colonoscopy at this time and it is okay to start tube feeding with nutritional consult for recommendations. They did note recommending general surgery for cholecystectomy when stable, given biliary pancreatitis. GI has signed off at this time. She also received a consultation from nephrology for evaluation of acute renal failure. Her previous creatinine in November 2016 was 0.68 and on presentation this admission, creatinine was 5.45. After aggressive hydration the creatinine level was 3.63 with improved urine output. It was opined that the acute renal failure was secondary to dehydration, shock syndrome and sepsis and recommended continued hydration and reduction of sodium bicarbonate due to the improvement in acid-base balance per ABG. As creatinine continues to trend downward towards her baseline with rehydration, nephrology is now seeing as needed. Cardiology consultation was obtained the follow-up troponin levels rising slightly to 0.23. Per cardiology evaluation, not likely to be an ischemic event based on the presenting factors in the setting of renal failure with hypotension, sepsis and on vasopressors. 2D echocardiogram was performed showing an ejection fraction of 55-60% with moderately dilated right ventricle with mildly decreased systolic function and aortic valve sclerosis. . Function/Cognitive Trajectory Patient has been wheelchair-bound for some time and had previously stated she could not walk at a 11/2016 physical therapy evaluation. At that evaluation, all extremities showed a strength of 3/5. Again at this evaluation, physical therapy notes indicate strength of 3/5 in all 4 extremities and were only able to do passive range of motion. The patient resides [facility] the [facility] facility as she requires [id number] care and is dependent for all activities. . (Abigail Quigley) Review of Systems ROS Limitations: Intubated (Patient is nonverbal and unable to provide their own ROS. 10 part ROS taken as best as possible from medical record sure it is [id number].) Constitutional: COMPLAINS OF: Generalized weakness, DENIES: Diaphoretic episodes, Fatigue, Fever, Weight gain, Weight loss, Chills, Dizziness, Change in appetite, Night Sweats, Pain, Sleep problems Endocrine: DENIES: Abnorml menstrual pattern, Heat/cold intolerance, Polydipsia , Polyuria, Polyphagia Eyes: DENIES: Blurred vision, Diplopia, Eye inflammation, Eye pain, Vision loss , Photosensitivity, Double Vision, Blind spots Ears, nose, mouth, throat: DENIES: Tinnitus, Hearing loss, Vertigo, Nasal discharge, Oral lesions, Throat pain, Hoarseness, Ear Pain, Running Nose, Epistaxis, Sinus Pain, Toothache, Odynophagia Respiratory: DENIES: Apneas, Cough, Snoring, Wheezing, Hemoptysis, Sputum production, Shortness of breath Cardiovascular: DENIES: Chest pain, Palpitations, Syncope, Dyspnea on Exertion , PND, Lower Extremity Edema, Orthopnea, Claudication Gastrointestinal: COMPLAINS OF: Bloody stools Genitourinary: DENIES: Abnormal vaginal bleeding, Dysmenorrhea, Dyspareunia, Sexual dysfunction, Urinary frequency, Urinary incontinence, Urgency, Hematuria , Dysuria, Nocturia, Vaginal discharge, Hesitancy, Dribbling, Decreased stream Musculoskeletal: DENIES: Joint pain, Muscle aches, Stiffness, Joint Swelling, Back pain, Neck pain, Decreased range of motion Integumentary: DENIES: Abnormal pigmentation, Pruritus, Rash, Nail changes, Breast masses, Breast skin changes, Nipple discharge, Nodules, Tumors, Excessive dryness, Non-healing sores Hematologic/Lymphatics: DENIES: Bruising, Lymphadenopathy, Prolonged bleed w/ proced, History of transfusions Immunologic/Allergic: DENIES: Eczema, Urticaria Neurologic: COMPLAINS OF: Localized weakness, DENIES: Abnormal gait, Headache, Paresthesias, Seizures, Speech Problems, Tremor, Poor Balance, Change in smell or taste Psychiatric: COMPLAINS OF: Confusion, DENIES: Anxiety, Mood changes, Depression , Hallucinations, Agitation, Suicidal Ideation, Homicidal Ideation, Delusions, Anhedonia (Abigail Quigley) Past Family Social History Coded Allergies: aspirin (Unverified Allergy, Severe, 10/16/16) PT HAS TINNITUS penicillin G (Unverified Allergy, Severe, 10/16/16) Past Medical History Hypertension Hyperlipidemia Hepatitis B Breast cancer status post bilateral mastectomy Vitamin D deficiency Compression fracture of L2 Chronic kidney disease stage III Dementia Depression Schizophrenia Anxiety GERD Osteoarthritis Compression fracture . Past Surgical History Right lumpectomy Hysterectomy Bilateral mastectomy . Reported Medications Reported Meds & Active Scripts Active Tramadol (Tramadol HCl) 50 Mg Tab 50 Mg PO TID 7 Days Reported Gemfibrozil 600 Mg Tab 600 Mg PO BIDAC Take 30 minutes prior to breakfast and dinner. Zoloft (Sertraline HCl) 100 Mg Tab 100 Mg PO DAILY Risperidone 2 Mg Tab 2 Mg PO HS Risperidone 0.5 Mg Tab 0.5 Mg PO HS Polyethylene Glycol 3350 Powder (Polyethylene Glycol) 17 Gram Pow 17 Gm PO DAILY Lisinopril-Hctz 10-12.5 Mg Tab 1 Tab PO DAILY . Current Medications Medications (Trade) Dose Ordered Sig/Nadia Route Start Time Stop Time Status Last Admin (NovoLOG SUPPLEMENTAL SCALE) 1 ACHS SQ 08/01/17 21:00 08/03/17 17:00 (D50w (Vial) Inj) 50 ml UNSCH PRN IV PUSH 08/01/17 20:00 (Glucagon Inj) 1 mg UNSCH PRN OTHER 08/01/17 20:00 (Lopid) 600 mg BIDAC PO 08/02/17 07:00 08/04/17 16:22 (risperDAL) 0.5 mg HS PO 08/01/17 22:00 (Zoloft) 100 mg DAILY PO 08/02/17 09:00 08/05/17 08:55 (risperDAL) 2 mg HS PO 08/01/17 22:00 Future Hold (NS Flush) 2 ml UNSCH PRN IV FLUSH 08/01/17 21:15 (NS Flush) 2 ml BID IV FLUSH 08/02/17 09:00 08/05/17 08:54 (Tylenol) 650 mg Q6H PRN PO 08/01/17 21:15 08/03/17 22:58 (Dilaudid Pf Inj) 1 mg Q4H PRN IV PUSH 08/01/17 21:15 08/02/17 04:11 (Zofran Inj) 4 mg Q6H PRN IV PUSH 08/01/17 21:15 (Restoril) 15 mg HS PRN PO 08/01/17 21:15 Future Hold ([facility]) 1 Q361D XX 08/01/17 21:15 (Chlorhexidine 2% Cloth) 3 pack Taper DAILY@04 TOP 08/02/17 04:00 07/29/18 03:59 08/05/17 03:58 (Chlorhexidine 2% Cloth) 3 pack UNSCH PRN TOP 08/01/17 21:15 (Guillermina-Colace) 1 tab BID PO 08/02/17 09:00 08/05/17 08:55 (Milk Of Magnesia Liq) 30 ml Q12H PRN PO 08/01/17 21:15 (Senokot) 17.2 mg Q12H PRN PO 08/01/17 21:15 (Dulcolax Supp) 10 mg DAILY PRN RECTAL 08/01/17 21:15 (Lactulose Liq) 30 ml DAILY PRN PO 08/01/17 21:15 Pharmacy Profile Note 0 ml @ 0 mls/hr UNSCH OTHER 08/01/17 21:15 Aztreonam 2000 mg/ Sodium Chloride 100 ml @ 200 mls/hr Q8H IV 08/01/17 22:00 08/05/17 13:50 Metronidazole 100 ml @ 100 mls/hr Q8H IV 08/01/17 22:00 08/05/17 04:23 (Protonix Inj) 40 mg Q12H IV PUSH 08/02/17 00:00 08/05/17 12:22 Norepinephrine Bitartrate 250 ml @ 7.5 mls/hr TITRATE PRN IV 08/02/17 19:45 08/05/17 13:49 Fentanyl Citrate 250 ml @ 5 mls/hr TITRATE PRN IV 08/03/17 10:00 08/05/17 09:00 (Peridex 0.12% Liq) 15 ml BID@08,20 MT 08/03/17 20:00 08/05/17 08:55 (Duoneb Neb) 1 ampule Q6HR NEB NEB 08/03/17 16:00 08/05/17 08:40 (Duoneb Neb) 1 ampule Q2HR NEB PRN NEB 08/03/17 10:45 Phenylephrine HCl 80 mg/Dextrose 500 ml @ 15 mls/hr TITRATE PRN IV 08/03/17 14:00 08/04/17 08:36 (Brethine Inj) 1 mg UNSCH PRN SQ 08/03/17 14:00 Sodium Bicarbonate 75 meq/Potassium Chloride 20 meq/ Sodium Chloride 1,085 ml @ 85 mls/hr [id number] IV 08/03/17 16:00 08/05/17 05:03 Propofol 100 ml @ 2.403 mls/ hr TITRATE PRN IV 08/03/17 16:15 08/03/17 19:00 Heparin Sodium/ Dextrose 250 ml @ 15 mls/hr TITRATE PRN IV 08/04/17 16:45 08/04/17 20:11 . Family History Brother of an acute SD at an unknown age. Both parents are of an unknown etiology. She is reported to have one brother remaining, Davi Sood , whom we have been unable to contact. . Substance Use Tobacco: Quit smoking more than 20 years ago Alcohol: Quit social alcohol use over 20 years ago Prescription med abuse: Denies Illicits: Denies. . Psychosocial History Patient originally from [place]. Moved to [place] over 20 years ago. 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 Patient is single. She reports that she had a son but "was given away". Both parents are , one brother Felice at known age secondary to acute SD. One remaining brother by the name of Davi Sood who she has not seen in over 12 years. . Spiritual/Cultural Factors No sikhism affiliation. . (Abigail Quigley) Living Will: Never completed Health Care Surrogate: Never completed Durable Power of Soldering Machine Feeder: Never completed Documented care wishes: No living will available. . Today's verbally stated goals: Patient is intubated and cannot participate in goal setting. . Family/friends goals: No family at bedside. . 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 She is currently intubated and am unable to determine capacity for decision-making at this time. She has no advance directives completed and thus far, no family has been able to be contacted. . (Abigail Quigley) Physical Exam Vital Signs Date Time Temp Pulse Resp B/P (MAP) Pulse Ox O2 Delivery O2 Flow Rate FiO2 08/05/17 14:00 68 08/05/17 14:00 68 12 98/54 (69) 98 108/47 (67) 08/05/17 13:49 71 102/56 08/05/17 13:16 98 35 08/05/17 13:00 69 13 102/56 (71) 98 110/48 (68) 08/05/17 12:00 98.6 68 12 103/51 (68) 99 118/51 (73) 08/05/17 12:00 68 08/05/17 12:00 35 08/05/17 11:00 64 12 131/62 (85) 96 139/58 (85) 08/05/17 10:00 79 08/05/17 10:00 79 12 108/58 (75) 97 122/53 (76) 08/05/17 09:00 83 12 120/58 (78) 97 120/55 (76) 6/4/18 08:41 96 35 6/18 08:00 35 6/18 08:00 80 6/18 08:00 98.1 80 12 118/57 (77) 97 119/55 (76) 18 07:00 73 12 104/52 (69) 97 118/51 (73) 08/05/17 06:03 75 107/48 6 06:00 69 6 05:30 76 114/52 08/05/17 04:40 98 40 618 04:00 40 18 04:00 66 18 04:00 66 115/49 6 03:15 68 12 113/48 (69) 98 6/18 03:00 69 12 100/53 (69) 98 115/49 (71) 18 02:45 68 12 109/47 (67) 98 6/18 02:30 70 12 109/47 (67) 98 18 02:15 71 12 110/47 (68) 98 18 02:00 73 12 100/50 (67) 98 112/49 (70) 18 02:00 74 18 01:45 76 12 117/50 (72) 98 6//18 01:30 76 12 111/48 (69) 98 6//18 01:15 86 12 136/59 (84) 100 6/18 01:10 100 40 08/05/17 01:00 71 12 98/55 (69) 99 114/48 (70) 18 00:45 74 12 101/45 (63) 99 6/18 00:30 72 12 125/52 (76) 98 6//18 00:30 72 125/52 6/18 00:15 73 12 117/50 (72) 99 6//18 00:00 40 /18 00:00 99.3 74 12 103/52 (69) 98 123/51 (75) 18 00:00 74 6//18 23:45 74 12 114/48 (70) 99 618 23:30 77 12 110/47 (68) 99 6/3/18 23:15 75 12 129/52 (77) 98 6/3/18 23:15 72 129/52 6/3/18 23:00 72 12 110/54 (72) 99 124/51 (75) 6/3/18 22:49 74 120/49 6/3/18 22:45 75 12 126/51 (76) 99 6/3/18 22:30 74 12 114/48 (70) 99 6/3/18 22:15 75 12 116/49 (71) 99 6/3/18 22:00 78 12 98/54 (69) 99 114/49 (70) 6/3/18 22:00 81 6/3/18 21:45 78 12 110/47 (68) 98 6/3/18 21:30 79 12 109/47 (67) 98 6/3/18 21:15 81 12 112/48 (69) 98 6/3/18 21:00 82 12 100/53 (69) 98 105/47 (66) 6/3/18 20:45 81 12 105/46 (65) 98 6/3/18 20:30 87 12 116/49 (71) 98 6/3/18 20:15 85 12 126/54 (78) 98 6/3/18 20:03 98 40 6/3/18 20:00 81 6/3/18 20:00 99.5 81 12 107/55 (72) 98 120/51 (74) 6/3/18 20:00 81 120/51 6/3/18 20:00 40 6/3/18 19:45 83 13 100/43 (62) 98 6/3/18 19:30 76 12 97/55 (69) 97 104/42 (62) 6/3/18 19:15 79 12 111/44 (66) 97 6/3/18 19:00 77 108/43 6/3/18 19:00 77 12 101/51 (68) 97 108/43 (64) 6/3/18 18:00 72 6/3/18 16:40 70 111/48 6/3/18 16:00 63 6/3/18 16:00 40 6/3/18 15:01 99 40 6/3/18 15:00 99.3 76 12 114/70 (85) 125/47 (73) 6/3/18 15:00 40 08/05/17 08/06/17 19:00 07:00 Intake Total 250 ml Balance 250 ml IV Total 250 ml Exam CONSTITUTIONAL/GENERAL: This is an obese patient, intubated, lightly sedated, in no apparent distress. TUBES/LINES/DRAINS: ETT, OG T, Mary, left PIV 2, right IJ central line. SKIN: No jaundice, rashes, or lesions. Ecchymoses on upper extremities. No wounds seen anteriorly. Skin temperature appropriate. Not diaphoretic. HEAD: Atraumatic. Normocephalic. EYES: Pupils equal and round and reactive. No scleral icterus. No injection or drainage. Fundi not examined. ENT: Nose without bleeding or purulent drainage. NECK: Trachea midline. Supple, nontender. No palpable thyroid enlargement or nodularity. CARDIOVASCULAR: Regular rate and rhythm without murmurs, gallops, or rubs. No JVD. Peripheral pulses symmetric. RESPIRATORY/CHEST: Symmetric, unlabored respirations. Clear to auscultation. Breath sounds equal bilaterally. No wheezes, rales, or rhonchi. GASTROINTESTINAL: Abdomen soft, obese, non-tender, nondistended. Limited abdominal exam due to body habitus, no guarding. Bowel sounds present. GENITOURINARY: Without palpable bladder distension. Mary catheter in place. MUSCULOSKELETAL: Extremities without clubbing or cyanosis. Generalized edema right greater than left. no joint tenderness or effusion noted. No calf tenderness. No mottling or clubbing. LYMPHATICS: No palpable cervical or supraclavicular adenopathy. NEUROLOGICAL: Arousable, intubated, lightly sedated, intermittently following simple commands. PSYCHIATRIC: Sedated. . (Abigail Quigley) Diagnostic Tests Laboratory Laboratory Tests Test 08/02/17 17:30 08/02/17 18:14 08/03/17 00:48 08/03/17 03:55 Hemoglobin 11.1 GM/DL (11.6-15.3) 11.2 GM/DL (11.6-15.3) 11.0 GM/DL (11.6-15.3) Hematocrit 33.1 % (35.0-46.0) 33.8 % (35.0-46.0) 32.8 % (35.0-46.0) Urine Eosinophils NONE SEEN /HPF (NONE SEEN) Urine Random Creatinine 55.2 MG/DL Urine Random Sodium 57 MEQ/L White Blood Count 23.4 TH/MM3 (4.0-11.0) Red Blood Count 3.78 MIL/MM3 (4.00-5.30) Mean Corpuscular Volume 86.8 FL (80.0-100.0) Mean Corpuscular Hemoglobin 29.0 PG (27.0-34.0) Mean Corpuscular Hemoglobin Concent 33.4 % (32.0-36.0) Red Cell Distribution Width 13.9 % (11.6-17.2) Platelet Count 231 TH/MM3 (150-450) Mean Platelet Volume 9.5 FL (7.0-11.0) Neutrophils (%) (Auto) 92.5 % (16.0-70.0) Lymphocytes (%) (Auto) 2.1 % (9.0-44.0) Monocytes (%) (Auto) 5.2 % (0.0-8.0) Eosinophils (%) (Auto) 0.0 % (0.0-4.0) Basophils (%) (Auto) 0.2 % (0.0-2.0) Neutrophils # (Auto) 21.7 TH/MM3 (1.8-7.7) Lymphocytes # (Auto) 0.5 TH/MM3 (1.0-4.8) Monocytes # (Auto) 1.2 TH/MM3 (0-0.9) Eosinophils # (Auto) 0.0 TH/MM3 (0-0.4) Basophils # (Auto) 0.0 TH/MM3 (0-0.2) CBC Comment AUTO DIFF Differential Total Cells Counted 100 Neutrophils % (Manual) 86 % (16-70) Band Neutrophils % 9 % (0-6) Lymphocytes % 1 % (9-44) Monocytes % 4 % (0-8) Neutrophils # (Manual) 22.2 TH/MM3 (1.8-7.7) Differential Comment FINAL DIFF MANUAL Platelet Estimate NORMAL (NORMAL) Platelet Morphology Comment NORMAL (NORMAL) Red Cell Morphology Comment NORMAL (NORMAL) Blood Urea Nitrogen 77 MG/DL (7-18) Creatinine 3.63 MG/DL (0.50-1.00) Random Glucose 244 MG/DL (74-106) Total Protein 5.6 GM/DL (6.4-8.2) Albumin 1.8 GM/DL (3.4-5.0) Calcium Level 6.4 MG/DL (8.5-10.1) Phosphorus Level 2.9 MG/DL (2.5-4.9) Magnesium Level 1.4 MG/DL (1.5-2.5) Alkaline Phosphatase 91 U/L (45-117) Aspartate Amino Transf (AST/SGOT) 61 U/L (15-37) Alanine Aminotransferase (ALT/SGPT) 173 U/L (10-53) Total Bilirubin 0.7 MG/DL (0.2-1.0) Sodium Level 138 MEQ/L (136-145) Potassium Level 2.2 MEQ/L (3.5-5.1) Chloride Level 101 MEQ/L (98-107) Carbon Dioxide Level 25.2 MEQ/L (21.0-32.0) Anion Gap 12 MEQ/L (5-15) Estimat Glomerular Filtration Rate 12 ML/MIN (>89) Hemoglobin A1c 5.6 % (4.3-6.0) Lactic Acid Level 1.1 mmol/L (0.4-2.0) Protein Corrected Calcium 7.1 MG/DL (8.5-10.1) Troponin I 0.27 NG/ML (0.02-0.05) Lipase 422 U/L (73-393) Random Vancomycin Level 8.8 COMMENT Test 08/03/17 07:49 08/03/17 10:15 08/03/17 11:13 08/03/17 16:00 Blood Gas Puncture Site ART LINE ART LINE ART LINE Blood Gas Patient Temperature 98.6 98.6 98.6 Blood Gas HCO3 26 mmol/L (22-26) 25 mmol/L (22-26) 25 mmol/L (22-26) Blood Gas Base Excess 1.5 mmol/L (-2-2) 1.1 mmol/L (-2-2) 1.9 mmol/L (-2-2) Blood Gas Oxygen Saturation 91 % (90-100) 97 % (90-100) 94 % (90-100) Arterial Blood pH 7.38 (7.380-7.420) 7.42 (7.380-7.420) 7.48 (7.380-7.420) Arterial Blood Partial Pressure CO2 46 mmHg (38-42) 40 mmHg (38-42) 34 mmHg (38-42) Arterial Blood Partial Pressure O2 66 mmHg (61-120) 209 mmHg (61-120) 76 mmHg (61-120) Arterial Blood Oxygen Content 14.0 Vol % (12.0-20.0) 15.4 Vol % (12.0-20.0) 14.3 Vol % (12.0-20.0) Arterial Blood Carboxyhemoglobin 1.3 % (0-4) 1.1 % (0-4) 1.1 % (0-4) Arterial Blood Methemoglobin 1.4 % (0-2) 1.4 % (0-2) 1.3 % (0-2) Blood Gas Hemoglobin 10.9 G/DL (12.0-16.0) 11.0 G/DL (12.0-16.0) 10.8 G/DL (12.0-16.0) Oxygen Delivery Device Venti Mask VENTILATOR VENTILATOR Blood Gas Liter Flow 6 L/M Blood Gas Inspired Oxygen 50 % 100 % 50 % D-Dimer Quantitative (PE/DVT) 17.82 MG/L FEU (0.00-0.50) Blood Gas Ventilator Setting PRVC/AC PRVC/AC Test 08/03/17 20:25 08/04/17 04:20 08/04/17 10:20 08/04/17 17:15 Hemoglobin 10.7 GM/DL (11.6-15.3) 10.4 GM/DL (11.6-15.3) 10.4 GM/DL (11.6-15.3) Hematocrit 31.7 % (35.0-46.0) 30.9 % (35.0-46.0) 30.2 % (35.0-46.0) Blood Urea Nitrogen 65 MG/DL (7-18) 56 MG/DL (7-18) Creatinine 2.70 MG/DL (0.50-1.00) 2.11 MG/DL (0.50-1.00) Random Glucose 158 MG/DL (74-106) 125 MG/DL (74-106) Total Protein 5.4 GM/DL (6.4-8.2) 5.1 GM/DL (6.4-8.2) Calcium Level 7.1 MG/DL (8.5-10.1) 7.3 MG/DL (8.5-10.1) Sodium Level 142 MEQ/L (136-145) 144 MEQ/L (136-145) Potassium Level 2.3 MEQ/L (3.5-5.1) 3.4 MEQ/L (3.5-5.1) Chloride Level 103 MEQ/L (98-107) 107 MEQ/L (98-107) Carbon Dioxide Level 25.9 MEQ/L (21.0-32.0) 22.6 MEQ/L (21.0-32.0) Anion Gap 13 MEQ/L (5-15) 14 MEQ/L (5-15) Estimat Glomerular Filtration Rate 17 ML/MIN (>89) 23 ML/MIN (>89) Protein Corrected Calcium 8.0 MG/DL (8.5-10.1) 8.4 MG/DL (8.5-10.1) White Blood Count 23.3 TH/MM3 (4.0-11.0) 22.0 TH/MM3 (4.0-11.0) Red Blood Count 3.58 MIL/MM3 (4.00-5.30) 3.51 MIL/MM3 (4.00-5.30) Mean Corpuscular Volume 86.2 FL (80.0-100.0) 86.2 FL (80.0-100.0) Mean Corpuscular Hemoglobin 29.0 PG (27.0-34.0) 29.7 PG (27.0-34.0) Mean Corpuscular Hemoglobin Concent 33.7 % (32.0-36.0) 34.5 % (32.0-36.0) Red Cell Distribution Width 13.9 % (11.6-17.2) 13.8 % (11.6-17.2) Platelet Count 254 TH/MM3 (150-450) 242 TH/MM3 (150-450) Mean Platelet Volume 9.2 FL (7.0-11.0) 8.7 FL (7.0-11.0) Neutrophils (%) (Auto) 88.6 % (16.0-70.0) Lymphocytes (%) (Auto) 5.0 % (9.0-44.0) Monocytes (%) (Auto) 6.1 % (0.0-8.0) Eosinophils (%) (Auto) 0.1 % (0.0-4.0) Basophils (%) (Auto) 0.2 % (0.0-2.0) Neutrophils # (Auto) 20.6 TH/MM3 (1.8-7.7) Lymphocytes # (Auto) 1.2 TH/MM3 (1.0-4.8) Monocytes # (Auto) 1.4 TH/MM3 (0-0.9) Eosinophils # (Auto) 0.0 TH/MM3 (0-0.4) Basophils # (Auto) 0.0 TH/MM3 (0-0.2) CBC Comment AUTO DIFF Differential Total Cells Counted 100 Neutrophils % (Manual) 77 % (16-70) Band Neutrophils % 14 % (0-6) Lymphocytes % 2 % (9-44) Monocytes % 6 % (0-8) Eosinophils % 1 % (0-4) Neutrophils # (Manual) 21.2 TH/MM3 (1.8-7.7) Differential Comment FINAL DIFF MANUAL Platelet Estimate NORMAL (NORMAL) Platelet Morphology Comment CLUMPED (NORMAL) Red Cell Morphology Comment NORMAL (NORMAL) B-Type Natriuretic Peptide 252 PG/ML (0-100) Albumin 1.4 GM/DL (3.4-5.0) Phosphorus Level 1.6 MG/DL (2.5-4.9) Magnesium Level 2.2 MG/DL (1.5-2.5) Alkaline Phosphatase 83 U/L (45-117) Aspartate Amino Transf (AST/SGOT) 32 U/L (15-37) Alanine Aminotransferase (ALT/SGPT) 95 U/L (10-53) Total Bilirubin 0.7 MG/DL (0.2-1.0) Troponin I 0.23 NG/ML (0.02-0.05) Lipase 134 U/L (73-393) Prothrombin Time 16.1 SEC (9.8-11.6) Prothromb Time International Ratio 1.6 RATIO Activated Partial Thromboplast Time 33.5 SEC (24.3-30.1) Test 08/04/17 23:15 08/05/17 05:10 08/05/17 08:00 Hemoglobin 10.2 GM/DL (11.6-15.3) 10.0 GM/DL (11.6-15.3) Hematocrit 30.5 % (35.0-46.0) 30.2 % (35.0-46.0) Activated Partial Thromboplast Time 52.8 SEC (24.3-30.1) 157.1 SEC (24.3-30.1) 58.8 SEC (24.3-30.1) White Blood Count 23.7 TH/MM3 (4.0-11.0) Red Blood Count 3.49 MIL/MM3 (4.00-5.30) Mean Corpuscular Volume 86.5 FL (80.0-100.0) Mean Corpuscular Hemoglobin 28.8 PG (27.0-34.0) Mean Corpuscular Hemoglobin Concent 33.2 % (32.0-36.0) Red Cell Distribution Width 13.9 % (11.6-17.2) Platelet Count 240 TH/MM3 (150-450) Mean Platelet Volume 8.9 FL (7.0-11.0) Neutrophils (%) (Auto) 89.5 % (16.0-70.0) Lymphocytes (%) (Auto) 4.8 % (9.0-44.0) Monocytes (%) (Auto) 5.0 % (0.0-8.0) Eosinophils (%) (Auto) 0.6 % (0.0-4.0) Basophils (%) (Auto) 0.1 % (0.0-2.0) Neutrophils # (Auto) 21.2 TH/MM3 (1.8-7.7) Lymphocytes # (Auto) 1.1 TH/MM3 (1.0-4.8) Monocytes # (Auto) 1.2 TH/MM3 (0-0.9) Eosinophils # (Auto) 0.1 TH/MM3 (0-0.4) Basophils # (Auto) 0.0 TH/MM3 (0-0.2) CBC Comment DIFF FINAL Differential Comment Blood Urea Nitrogen 45 MG/DL (7-18) Creatinine 1.55 MG/DL (0.50-1.00) Random Glucose 140 MG/DL (74-106) Total Protein 5.1 GM/DL (6.4-8.2) Albumin 1.3 GM/DL (3.4-5.0) Calcium Level 7.0 MG/DL (8.5-10.1) Phosphorus Level 2.6 MG/DL (2.5-4.9) Alkaline Phosphatase 83 U/L (45-117) Aspartate Amino Transf (AST/SGOT) 28 U/L (15-37) Alanine Aminotransferase (ALT/SGPT) 73 U/L (10-53) Total Bilirubin 0.7 MG/DL (0.2-1.0) Sodium Level 143 MEQ/L (136-145) Potassium Level 3.3 MEQ/L (3.5-5.1) Chloride Level 106 MEQ/L (98-107) Carbon Dioxide Level 24.4 MEQ/L (21.0-32.0) Anion Gap 13 MEQ/L (5-15) Estimat Glomerular Filtration Rate 32 ML/MIN (>89) Protein Corrected Calcium 8.1 MG/DL (8.5-10.1) Lipase 119 U/L (73-393) Random Vancomycin Level 9.7 COMMENT (Abigail Quigley) Result Diagram: 08/05/1710 08/05/17509 Microbiology Microbiology Date/Time Source Procedure Growth Status 08/01/17 22:05 Blood Peripheral Aerobic Blood Culture - Preliminary NO GROWTH IN 4 DAYS Resulted 08/01/17 22:05 Blood Peripheral Anaerobic Blood Culture - Preliminary NO GROWTH IN 4 DAYS Resulted 08/01/17 21:10 Urine Catheterized Urine Urine Culture - Final NO GROWTH IN 48 HOURS. Complete Imaging Last Impressions Lower Extremity Ultrasound 08/03/17 Signed Impressions: CONCLUSION: 1. Extensive DVT of the right lower extremity. 2. No venous thrombosis of the left lower extremity. Hepatobiliary Scan Nuclear Medicine 08/03/17 Signed Impressions: CONCLUSION: 1. No evidence of cystic duct or distal common bile duct obstruction. 2. Normal gallbladder ejection fraction. Chest X-Ray 08/03/17 Signed Impressions: CONCLUSION: The lungs are significantly hypoinflated but better aerated as compared to the prior exam with interval intubation. Stable right-sided central line. Nasogastr ic tubing with the proximal port below the level the diaphragm. Cholangiopancreatography MRI 08/02/17 Signed Impressions: CONCLUSION: 1. Gallstones with at least one stone in the common duct 2. Pancreas poorly visualized because of motion. 3. Fluid present in the lesser sac consistent with pancreatitis. Head Magnetic Resonance Angiography 08/01/17 Signed Impressions: CONCLUSION: 1. Negative MRA [place] ([place]) non contrast. Head CT 08/01/17 Signed Impressions: CONCLUSION: 1. No acute intracranial abnormality is identified. 2. However, there is encephalomalacia in the left parietal region and there is generalized atrophy with severe periventricular white matter low-attenuation c haracteristic of chronic microvascular ischemia. Carotid Artery Ultrasound 08/01/17 Signed Impressions: CONCLUSION: 1. Right Internal Carotid Artery: Findings indicate <50% stenosis. 2. Left Internal Carotid Artery: Findings indicate <50% stenosis. Brain MRI 08/01/17 Signed Impressions: CONCLUSION: 1. Questionable tiny subacute lacunar infarcts posterior periventricular white matter. Moderate to severe chronic ischemic changes in the periventricular whi te matter. Remote left parietal lobe infarct. Abdomen/Pelvis CT 08/01/17 Signed Impressions: CONCLUSION: 1. The pancreas is abnormal with enlargement and peripancreatic inflammation a nd edema characteristic of acute pancreatitis. There is a small volume of free fluid in the abdomen and pelvis. 2. Cholelithiasis without pancreatic duct dilatation. 3. There is mild wall thickening of the inferior rectum with associated presac ral edema. 4. Small bilateral pleural effusions with associated compressive atelectasis. 5. There is a compression deformity of uncertain chronicity involving L3 and c ompression deformity with sclerosis involving T9. Procedures 08/02/2017: Right IJ central line placement 08/03/2017: Endotracheal intubation . (Abigail Quigley) Patient/Family Conference Present at Family Conference: Have made multiple telephone attempts to contact her brother, Davi Sood, however the phone has been busy for several hours and have been unable to leave a voicemail. Per prior history, she did have a son that "was given away", both parents are and one other brother . She identified one brother, Davi, whom she has not seen in over 13 years. Per my discussion with [facility] staff, she has no visitors and has not had contact with the brother. Will continue to attempt trying to reach him. . Family Conference Location: Other (Pending) Issues Discussed: * Palliative care role, purpose, approach * Additional medical, psychosocial, and spiritual history * Patients general health, functional status, and cognitive changes in the months leading up to the current hospitalization * Patient/family understanding of the current medical problems * Patient/family understanding of prognosis * Patients goals of care as best understood from advance directives and/or conversations and/or values * Current medical treatment options and benefits/burdens of those options * Likely scenarios comparing ongoing aggressive care with a transition to comfort measures only * Questions answered to the best of my ability * Palliative care contact information provided (Abigail Quigley) Assessment and Plan Disease Oriented Problem List: (1) GI bleed (2) Metabolic acidosis (3) Altered mental status (4) Sepsis (5) Acute renal failure (6) Adjustment disorder with depressed mood (7) Hypertension Symptom Scale: (1) Weakness 0-10 Scale: Unable to quantify (Right flaccidity on admission, improving) (2) Altered mental status 0-10 Scale: Unable to quantify (Baseline dementia, intubated, sedated.) Pertinent Non-Medical Issues Psychosocial:Patient originally from [place]. Moved to [place] over 20 years ago. 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 Patient is single. She reports that she had a son but "was given away". Both parents are , one brother Felice at known age secondary to acute SD. One remaining brother by the name of Davi Sood who she has not seen in over 12 years. Spiritual: No sikhism affiliation. Legal: No advanced directive paperwork has been completed. Ethical issues impacting care: Patient has a history of schizophrenia/psycho affective disorder with questionable dementia and at this time decision-making capacity cannot be determined. No family is available to serve as decision- maker at this time. Continuing to try to make contact with her brother. . Important Contacts Brother: Davi Sood (unable to reach). Continuous busy signal. Possible nephew:Davi SoodJr. (voicemail left), , unable to leave message. . Prognosis Her prognosis is guarded. She is admitted with severe dehydration, sepsis, pancreatitis, metabolic acidosis, acute kidney failure and GI bleed, then suffered ventilatory dependent respiratory failure. She is listed as an FULL CODE, by default, as no family decision-maker can be reached to discuss goals of care. At her previous admission November 2016 she had specified that she wished to be a no code, DNR/DNI. Community DNR was introduced at that time however the patient declined completion. Without the signed DNR, she reverted to a FULL CODE when returned to the facility. She has multiple system compromise and is at increased risk of continued decline and complications. . Code Status: Full Code (By default. Patient previously a DNR/DNI at 11/18 admission, refused to sign community DNR.) Plan PLAN: Legal decision maker: At this time the patient's capacity cannot be determined as she is intubated and sedated. Multiple attempts have been made to reach her brother and a possible nephew, however no phone contact has been able to be established, either at this visit or at the 11/2016 admission. At this time, no legal decision maker is available. Goals: TBD CODE STATUS: FULL CODE by default. At previous admission 11/2016, patient stated she wished to be a DNR/DNI and did not wish any invasive interventions or procedures. Community DNR was introduced at that time and patient declined to complete. 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 At last evaluation prior to intubation, strength was 3/5 consistent with her prior admission in November 2016. She is undergoing rehydration and antibiotic therapy. Physical therapy is following. * Altered mental status: Multifactorial related to sepsis, hypotension, dehydration, acidosis, baseline psycho affective disorder/schizophrenia. She is currently intubated and sedated and a thorough assessment cannot be made at this time. She is following some commands at this time and can hopefully be medically extubated to further determine capacity and goals of care. SUMMARY This is a 76-year-old female with a history of psycho affective disorder/ schizophrenia, acute on chronic kidney insufficiency, wheelchair dependence admitted with sepsis, dehydration, hypotension, metabolic acidosis, pancreatitis now intubated and sedated in the intensive care unit. She had previously made herself a DNR/DNI but declined to complete the [facility] DNR form and so reverted to a FULL CODE when returned to her facility. On this admission she was unable to make her needs known due to her severe illness and has been intubated. She is now starting to respond to commands and can hopefully be medically extubated so capacity and goals of care can be addressed. She is reported to have a brother but we have been unable to make contact and he has not made contact with her during the time she has been at [facility]. Continued attempts are in progress to contact family. She is likely to have further decline, complications and re-hospitalizations. Palliative care will continue to follow the patient during hospital course as condition evolves, to assist patient/decision-maker with understanding of their medical conditions, weighing benefits/burdens of treatment options, for clarification of goals of treatment. Additionally will assist with any symptoms of palliative concern. . (Abigail Quigley) Thank you for the opportunity to participate in the care of Ms. Sood. (Abigail Quigley) Attestation To help prompt me to consider important information that might be impacting today's encounter and assessment, information from prior notes written by myself or my colleagues may have been "brought forward" into today's note. My signature on this note, however, is an attestation that I personally performed the exam, history, and/or decision-making noted today, and, unless otherwise indicated, the interactions with patient, family, and staff as well as the review of records all occurred today. I also attest that the listed assessment and stated plan reflect my best clinical judgment today based on the combination of historical information, prior notes, and today's exam/ interactions. When time spent is documented, it refers only to time spent today by the signer, or if indicated, combined time spent today by collaborating physician/nurse practitioner. . (Abigail Quigley) Collaborating MD Comments Chart reviewed. 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 Above AKI note reviewed and I concur. . (Anival Dominique MD) Abigail Quigley Aug 05, 2017 15:35 Anival Dominique MD Aug 17, 2017 16:01
[2017-08-05] MEDS ORDERED: SODIUM PHOSPHATE INJ 30 MMOL in SODIUM CHLOR 0.9% 250 ML INJ 240 ML IV PRN (17:45)
[2017-08-05] MEDS ORDERED: MAGNESIUM OXIDE 400 MG TAB PO PRN (17:45)
[2017-08-05] MEDS ORDERED: POTASSIUM PHOSPHATE INJ 30 MMOL in SODIUM CHLOR 0.9% 250 ML INJ 250 ML IV PRN (17:45)
[2017-08-05] MEDS ORDERED: POTASSIUM PHOSPHATE MONOBASIC 500 MG TAB PO/TUBE PRN (17:45)
[2017-08-05] MEDS ORDERED: POTASSIUM CHLORIDE 25 MEQ EFFERVESCENT TAB PO PRN (17:45)
[2017-08-05] MEDS ORDERED: MAGNESIUM SULFATE INJ 4 GM in SODIUM CHLORIDE 0.9% INJ 92 ML IV PRN (17:45)
[2017-08-05] MEDS ORDERED: POTASSIUM CHLOR 40 MEQ PREMIX 100 ML IV PRN (17:45)
[2017-08-05] MEDS ORDERED: POTASSIUM CHLOR 20 MEQ PREMIX 100 ML IV PRN (17:45)
[2017-08-05] MEDS ORDERED: POTASSIUM PHOSPHATE MONOBASIC 500 MG TAB PO PRN (17:45)
--- NOTE | 2017-08-05 17:50 | HHI.CCPN ---
Subjective Remarks/Hospital Course 76-year-old pleasantly demented female, [facility] resident. The patient was noted earlier today to have a sudden onset of right gaze, as well as right- sided weakness. She was also found to be very hypotensive. Initial blood pressure 60/20, which responded to fluids and increased to 90/60. She presented to the hospital as a stroke-alert. The MRI of brain obtained in the emergency department showed only questionable tiny subacute lacunar infarcts posterior periventricular white matter. Moderate to severe chronic ischemic changes in the periventricular white matter. Remote left parietal lobe infarct. The CT of the abdomen and pelvis however shows the abnormal pancreas with enlargement and peripancreatic inflammation and edema characteristic of acute pancreatitis. Cholelithiasis without pancreatic duct dilatation. 6: Afebrile. Patient continues to have severe metabolic acidosis sodium bicarbonate infusion continued. Patient on nonrebreather continuing to be weaned down . Patient bolused with 500 cc normal saline 1 this a.m.. Oliguric 150 cc urine output in the last 12 hours. Unable to assess the amount of IV fluid patient was given in the ED and overnight. No hematemesis or melena this a.m. Patient continues on Protonix twice daily. Patient currently on nonrebreather mask currently being weaned down O2 saturation 100% though PaO2 is 155. Triglycerides are pending. MRI is pending. 2: Afebrile. Overnight patient became hemodynamically unstable, central line placed patient currently on Levophed 12 mcgs/min. The patient FIO2 requirements are increasing, intubation planned. Echo report last night showed RV mildly dilated with RV systolic function mildly decreased. Concern for possible PE, however patient not a candidate in the setting of GI Bleed. Hgb and Hct trend stable. Metabolic acidosis resolved with NaHCO3 infusion, now decreased. Patient 's SVV continued elevation and BUN 77. Pt bolused IVF's this am. UOP, creatinine slightly improved overnight. Electrolytes being replaced and closely monitored. Discussed with GI AKI Spence after her discussion with Dr. Sanchez this am plan is for MRCP today by GI or Invasive Radiology. --> report indicates stone in CBD without ductal dilatation 08/04 Off levophed, remainsn on neosynephrine 80 mcg/min. RLE u/s shows extensive RLE DVT. No BMs overnight. Discussed with gastroenterology, Dr. Sanchez, who agrees with starting heparin drip and monitor closely for bleeding. HIDA scan yesterday shows no evidence of obstruction. LFTS trending down so GI has canceled IR consult for percutaneous transhepatic biliary drain. Creatinine down trending and urine output improved. Subjective: 08/05 Now weaned off neosynephrine, on levophed 9 mcg/min, RN states unable to wean. Started on heparin drip yesterday, no evidence of bleeding. LFTs continue downtrend. Okay to resume tube feeds per GI, but OGT was coiled in mouth and was repositioned, so will need to confirm position before initiating tube feeds. Palliative care assisting with finding family, no success so far. Objective Vital Signs Date Time Temp Pulse Resp B/P (MAP) Pulse Ox O2 Delivery O2 Flow Rate FiO2 08/05/17 16:07 97 35 08/05/17 16:00 63 08/05/17 16:00 99.1 12 103/53 (70) 116/49 (71) 08/01/17 20:30 Non-Rebreather 15.00 Intake and Output 08/05/17 08/05/17 08/06/17 08:00 16:00 00:00 Intake Total 1671 ml 1039.1 ml Output Total 650 ml Balance 1021 ml 1039.1 ml Result Diagram: 08/05/17 0510 08/05/17 0510 Imaging Last [address] 08/01/17 0000 Signed Impressions: CONCLUSION: 1. No acute intracranial abnormality is identified. 2. However, there is encephalomalacia in the left parietal region and there is generalized atrophy with severe periventricular white matter low-attenuation c haracteristic of chronic microvascular ischemia. Chest X-Ray 08/01/17 Signed Impressions: CONCLUSION: Underinflated examination with small bilateral pleural effusions with compressi ve atelectasis at the lung bases. Carotid Artery Ultrasound 08/01/17 Signed Impressions: CONCLUSION: 1. Right Internal Carotid Artery: Findings indicate <50% stenosis. 2. Left Internal Carotid Artery: Findings indicate <50% stenosis. Abdomen/Pelvis CT 08/01/17 Signed Impressions: CONCLUSION: 1. The pancreas is abnormal with enlargement and peripancreatic inflammation a nd edema characteristic of acute pancreatitis. There is a small volume of free fluid in the abdomen and pelvis. 2. Cholelithiasis without pancreatic duct dilatation. 3. There is mild wall thickening of the inferior rectum with associated presac ral edema. 4. Small bilateral pleural effusions with associated compressive atelectasis. 5. There is a compression deformity of uncertain chronicity involving L3 and c ompression deformity with sclerosis involving T9. Objective Remarks Drips: Fentanyl 100 mcg/h Propofol is off Levophed 9 mcg/min 0.45 NaCl with 75 mEq of bicarb per liter at 85 mL/h Cardiac output 5.5,, SVV 9. GENERAL: This is a well-nourished, well-developed elderly female patient, awakens on sedation and makes eye contact but not following commands today. Orotracheally intubated. SKIN: No rashes, ecchymoses or lesions. Dry. HEAD: Atraumatic. Normocephalic. No temporal or scalp tenderness. EYES: Resists eye opening, pupils 2 mm equal round and reactive. Extraocular motions intact. No scleral icterus. No injection or drainage. NECK: Trachea midline. No JVD or lymphadenopathy. CARDIOVASCULAR: Regular rate and rhythm with soft murmurs, no gallops, no rubs. RESPIRATORY: Orotracheally intubated on mechanical ventilation. Coarse bilateral breath sounds. GASTROINTESTINAL: Abdomen soft, non-tender, mildly distended. No rebound or guarding. MUSCULOSKELETAL: Extremities without clubbing, cyanosis. 1+ edema of all extremities. NEUROLOGICAL: Awakes to voice, makes eye contact. Moves extremities spontaneously but not making eye contact currently. Date of Insertion: Aug 02, 2017 Date of Insertion: Aug 03, 2017 A/P Assessment and Plan Plan by systems: Neurologic: Acute left lacunar stroke History of previous CVA Schizophrenia Depression 08/02 MRI-moderate to severe ischemic changes. Tiny subacute lacunar infarcts. Remote left parietal lobe infarct 08/02 MRA brain-negative 08/02-CT brain-no acute abnormality Carotids-<50% stenosis Patient is followed by neurology-Dr. Michelle Was not a candidate for TPA on admission due to acute GI bleed Risperidone-on hold Zoloft 100 mg p.o. daily Respiratory: Acute hypoxemic respiratory failure Intubated 08/03 On PRVC. Daily CPAP trial. Duo nebs every 6 hours scheduled every 2 hours as needed Ventilator bundle 08/02 CT-small bilateral pleural effusions bases D-dimer elevated.-suspicion for PE given the echo results-unable to do CT angiogram due to acute kidney injury. Does have extensive right lower extremity DVT so needs anticoagulation. Has not had any further bleeding. Discussed with gastroenterology, Dr. Sanchez, who recommends proceed with anticoagulation with heparin at this time and will address bleeding if it occurs. Cardiovascular: Hypovolemic and septic shock secondary to acute pancreatitis Art line is in place with Flowtrack monitoring ongoing. SVV is 9. Neosynephrine has been weaned off and she remains on Levophed. Will check cortisol. 08/02 echo-right ventricle mildly dilated. Right ventricular systolic function mildly decreased. EF 55-60% 08/03-troponin increased 0.03->0.27. Possibly secondary to acute kidney injury, infection. Conceivably could be related to PE but would not use TPA at this time anyway due to bleeding risk and she is not a candidate for CT pulmonary angiogram due to acute kidney injury. Cardiology has evaluated, Dr. Tang. He has not recommended any further ischemic workup and has signed off. Mild hypertriglyceridemia is not the etiology of pancreatitis. Is on gemfibrozil 600 mg p.o. twice daily Renal: Acute hypokalemia Acute hypophosphatemia Acute kidney injury Maintain Mary catheter -- Strict I/Os --Electrolyte replacement by protocol Follow-up CMP and phosphorus in the morning. Nephrology, Dr. Sheridan has now signed off. FEN/GI: Acute gallstone pancreatitis. Dyslipidemia GI bleed Elevated liver enzymes Chronic moderate protein calorie malnutrition 0.45 NaCl with 75 mEq of sodium bicarbonate infusion 84 cc/hr Broad-spectrum antibiotics 08/01 GI has been consulted Protonix twice daily Rectal wall thickening on the CT In ED patient was noted to have bright red blood per rectum. Was transfused 2 units packed red cells 08/01. Has not had any further bleeding. GI is not planning to scope at this time. Recommend proceed with anticoagulation for extensive DVT and possible PE and monitor closely for evidence of bleeding. 08/02- 1700 S/P MRI-at least one stone in the common bile duct. Dr. Mahoney spoke with Dr. Sancehz made him aware of patient's result. 08/03: MRCP demonstrates gallstones with cysts CBD stone. No dilatation of CBD. Minimal gallbladder wall thickening with trace fluid 08/03 HIDA scanno evidence of cystic duct or distal common bile duct obstruction. Normal gallbladder ejection fraction. Lipase now normalized at 134. LFTs downtrending. It appears she has passed a stone. Albumin 1.8 Okay to resume tube feeds per GI. OG tube was coiled in the mouth. Obtain KUB to confirm placement and then initiate tube feeds. Jevity 1.5 with ultimate goal rate of 50 mL/h per nutrition recommendations. Will initiate trickle 20 cc /h tonight Heme/ID: Acute blood loss anemia 2/2 GI bleed Persistent leukocytosis Extensive right lower extremity DVT Monitor CBC Transfuse for hemoglobin less than 7 Patient transfused 2 units packed red blood cells in the ED (08/01) Ultrasound bilateral lower extremity 6xtensive right lower extremity DVT including iliac vein and extending below the knee to the posterior tibial vein. Continue heparin drip. Initiated 08/04. Endocrine: Hyperglycemia hemoglobin A1c 5.6 Glucose monitoring per ICU protocol. Low-dose regimen -- SSI Prophylaxis: GI Prophylaxis Protonix BID DVT Prophylaxis Heparin drip as per above Lines: Right IJ central venous line 08/02 #4 Right radial art line in place, will need to remain in place for hemodynamic monitoring while weaning pressors. Only contact information I have for this patient is her brother, Davi Sood. Attempted to call him to provide update and to discuss risk benefits of anticoagulation. There is no answer. Patient has shown some signs of improvement but her prognosis remains guarded. She is not capacitated for medical decision-making. It appears there is no known healthcare surrogate/ proxy. Palliative care also following and trying to assist with locating family. Discussed with Dr. Sanchez Level 3 follow-up Fatuma Cotto MD Aug 05, 2017 17:50
[2017-08-05] MEDS: HEPARIN-D5W 25,000 U/250 ML 250 ML IV PRN (18:46)
[2017-08-05] MEDS: POTASSIUM CHLOR 20 MEQ PREMIX 100 ML IV PRN ×2 (18:56→20:34)
--- NOTE | 2017-08-05 19:58 | RADRPT ---
EXAM DATE: 08/05/2017 6:17 PM EDT AGE/SEX: 76 years / Female INDICATIONS: OG tube placement. CLINICAL DATA: This is the patient's subsequent encounter. Patient reports that signs and symptoms h ave been present for 1 day and indicates a pain score of Nonresponsive. MEDICAL/SURGICAL HISTORY: . CVA. Breast cancer. Mastectomy, bilateral. COMPARISON: No prior [facility] exams available for comparison. FINDINGS: OG tube tip is projected over the proximal stomach. No evidence for obstruction or free air. Basilar airspace disease with small left effusion. CONCLUSION: OG tube tip in proximal stomach. Mild basilar airspace disease with small left effusion. Electronically signed by: Collin Ayala MD 08/05/2017 7:56 PM EDT
[2017-08-05] MEDS: risperiDONE 0.5 MG TAB PO SCH (20:22)
[2017-08-06] VITALS (39 sets, daily range): BP systolic 83–149; BP diastolic 38–63; PULSE 69–100; RESP 12–20; TEMP 98.9–99.5; O2SAT 91–100
[2017-08-06] MEDS: PANTOPRAZOLE SODIUM 40 MG VIAL IV PUSH SCH ×3 (00:02→23:55)
[2017-08-06] MEDS: RESP: ALBUTEROL 2.5 MG/IPRATROPIUM 0.5 MG NEB (SCH) NEB ×4 (03:37→19:31)
[2017-08-06] MEDS: CHLORHEXIDINE GLUCONATE 2 % 1 PACK (2 CLOTHS) TOP SCH (04:00)
[2017-08-06 05:15] LABS: AUTOMATED NEUTROPHIL # 26.8 TH/MM3 (1.8-7.7); BASOPHIL % 0.1 % (0.0-2.0); EOSINOPHIL # 0.2 TH/MM3 (0-0.4); EOSINOPHIL % 0.6 % (0.0-4.0); HEMATOCRIT 29.5 % (35.0-46.0); HEMOGLOBIN 9.9 GM/DL (11.6-15.3); LYMPH % 4.8 % (9.0-44.0); LYMPHOCYTE # 1.4 TH/MM3 (1.0-4.8); MEAN CELL VOLUME 87.5 FL (80.0-100.0); MEAN CORPUSCULAR HEMOGLOBIN 29.2 PG (27.0-34.0); MEAN CORPUSCULAR HGB CONC 33.4 % (32.0-36.0); MONO % 4.2 % (0.0-8.0); MONOCYTE # 1.2 TH/MM3 (0-0.9); NEUT % 90.3 % (16.0-70.0); PLATELET COUNT 248 TH/MM3 (150-450); RED BLOOD COUNT 3.37 MIL/MM3 (4.00-5.30); WHITE BLOOD COUNT 29.7 TH/MM3 (4.0-11.0)
[2017-08-06 05:31] LABS: ALBUMIN 1.3 GM/DL (3.4-5.0); AST (GOT) 16 U/L (15-37); BICARBONATE 23.8 MEQ/L (21.0-32.0); BLOOD UREA NITROGEN 43 MG/DL (7-18); CALCIUM 7.8 MG/DL (8.5-10.1); CHLORIDE 106 MEQ/L (98-107); CREATININE 1.29 MG/DL (0.50-1.00); GLOMERULAR FILTRATION RATE 40 ML/MIN (>89); GLUCOSE,RANDOM 169 MG/DL (74-106); SODIUM (NA) 142 MEQ/L (136-145)
[2017-08-06 05:33] LABS: ALT (GPT) 51 U/L (10-53)
[2017-08-06 05:35] LABS: ALKALINE PHOSPHATASE 76 U/L (45-117); RANDOM VANCOMYCIN 18.4 COMMENT; TOTAL BILIRUBIN ADULT 0.6 MG/DL (0.2-1.0); TOTAL PROTEIN 5.1 GM/DL (6.4-8.2)
[2017-08-06] MEDS: AZTREONAM INJ 2,000 MG in SODIUM CHLORIDE 0.9% INJ 100 ML IV SCH ×3 (05:46→22:04)
[2017-08-06] MEDS: metroNIDAZOLE 500 MG INJ 100 ML IV SCH ×3 (05:46→22:04)
[2017-08-06] MEDS: GEMFIBROZIL 600 MG TAB PO SCH ×2 (05:47→16:15)
[2017-08-06] MEDS: NOREPINEPHRINE 4 MG/D5W 250 ML IV PRN ×3 (06:01→23:53)
[2017-08-06] MEDS: POTASSIUM CHLORIDE IV SCH (06:01)
[2017-08-06] MEDS: [UNRECOGNIZED DRUG - OTHER] IV SCH (06:01)
[2017-08-06] MEDS: SODIUM BICARBONATE IV SCH (06:01)
[2017-08-06] MEDS: INSULIN ASPART SUPPLEMENTAL SCALE SQ SCH ×4 (08:00→20:21)
[2017-08-06] MEDS: SODIUM CHLORIDE 0.9% FLUSH 10 ML FLUSH IV FLUSH SCH ×2 (08:09→20:21)
[2017-08-06] MEDS: DOCUSATE SODIUM 50 MG/SENNA 8.6 MG TAB PO SCH ×2 (08:10→20:20)
[2017-08-06] MEDS: CHLORHEXIDINE 0.12% (ORAL KIT) 15 ML CUP MT SCH ×2 (08:10→20:20)
[2017-08-06] MEDS: SERTRALINE HCL 100 MG TAB PO SCH (08:10)
[2017-08-06] MEDS: fentaNYL DRIP 250 ML IV PRN (09:35)
[2017-08-06] MEDS: VANCOMYCIN INJ 1,500 MG in SODIUM CHLORID 0.9% 500 ML INJ 500 ML IV SCH (13:04)
[2017-08-06] MEDS ORDERED: MIDAZOLAM HCL 2 MG/2 ML VIAL IV PUSH PRN (15:15)
--- NOTE | 2017-08-06 15:51 | HHI.HCPN ---
Reason for visit A. To assist with evaluation and management of symptoms including:Weakness, altered mental status b. To assist medical decision maker(s) with: better understanding of current medical conditions; weighing benefits/burdens of medical treatment options; making medical treatment decisions. Subjective/Interval History Palliative care follow-up for further clarification of goals of care. Patient seen in medical ICU, remains endotracheally intubated on mechanical ventilation. Currently on fentanyl drip, opening eyes to verbal stimuli. Not following commands or attempting to communicate. She remains on vasopressor support and bicarbonate drip. Remains on 35% FiO2, afebrile. Laboratory workup today revealing worsening leukocytosis, WBC 29.7. Hgb stable at 9.9, platelet count 48. Remains on acute renal failure with BUN/creatinine 43/1.29. LFTs within normal limits today, tolerating tube feeds at 20 mL/h. Continue attempts at contacting family members. As per prior palliative care consultation in November 2016, patient is single. She reports that she had a son but "was given away" when he was a baby. Both parents are , one brother Felice at unknown age secondary to acute CO. One remaining brother by the name of Davi Sood who she has not seen in over 12 years. [facility] [employer] reports in November 2016 with no active contact information for brother. Patient's long-term facility provided additional telephone numbers. They reported that they have not been able to locate any family member either. Requesting [facility] report, provided brother's information. Case discussed with bedside RN Dari. . Family/friend interactions Telephone call to brother Davi Sood , no answer. Unable to leave voicemail. Telephone call to possible nephew Davi SoodJr. (voicemail left), , no longer in service. . Advance Directives Living Will: Never completed Health Care Surrogate: Never completed Durable Power of Applications Specialist: Never completed Advance Directive Specifics Documented care wishes: No living will available. . Significant change in goals: Goals remain aggressive by default. Pending identification of next of kin. . Objective Vital Signs Date Time Temp Pulse Resp B/P (MAP) Pulse Ox O2 Delivery O2 Flow Rate FiO2 08/06/17 14:00 74 08/06/17 12:10 97 35 6/5/18 12:00 35 618 12:00 77 6/07/19 12:00 99.5 77 12 91/52 (65) 97 101/48 (65) 08/06/17 11:00 76 12 93/55 (68) 97 105/48 (67) 08/06/17 10:00 78 12 99/52 (68) 97 111/50 (70) 08/06/17 10:00 78 6 09:00 75 12 99/50 (66) 97 111/52 (71) 08/06/17 08:36 97 35 08/06/17 08:00 35 6 08:00 90 08/06/17 08:00 99.1 90 12 117/57 (77) 97 125/61 (82) 08/06/17 08:00 90 117/57 08/06/17 07:00 78 12 108/56 (73) 97 119/57 (77) 08/06/17 07:00 78 108/56 08/06/17 06:01 86 112/53 08/06/17 06:00 74 08/06/17 05:00 81 12 94/54 (67) 98 102/46 (64) 08/06/17 04:30 75 12 96/44 (61) 98 6 04:29 98 35 08/06/17 04:00 99.0 74 12 100/53 (69) 99 118/51 (73) 08/06/17 04:00 35 08/06/17 04:00 74 08/06/17 03:30 69 12 110/49 (69) 98 08/06/17 03:00 69 12 98/51 (67) 98 116/51 (72) 08/06/17 02:30 69 12 108/50 (69) 98 6//18 02:00 72 12 98/50 (66) 97 109/50 (69) 08/06/17 02:00 72 08/06/17 01:35 97 35 618 01:30 76 12 105/49 (67) 97 6 01:00 80 12 88/53 (65) 97 102/48 (66) 08/06/17 00:45 87 104/48 08/06/17 00:30 90 12 107/48 (67) 98 6/5/18 00:00 99.0 98 15 96/54 (68) 98 115/48 (70) 08/06/17 00:00 35 08/06/17 00:00 98 08/05/17 23:30 87 13 132/61 (84) 96 08/05/17 23:00 66 12 98/52 (67) 99 116/51 (72) 08/05/17 22:30 69 12 109/47 (67) 99 08/05/17 22:10 97 35 08/05/17 22:00 69 12 94/51 (65) 99 119/51 (73) 08/05/17 22:00 69 08/05/17 21:36 72 117/51 08/05/17 21:30 72 12 112/49 (70) 99 08/05/17 21:00 79 13 111/56 (74) 97 132/58 (82) 08/05/17 20:30 82 13 126/58 (80) 97 08/05/17 20:00 66 08/05/17 20:00 99 35 08/05/17 20:00 35 08/05/17 20:00 99.6 66 12 104/54 (71) 98 116/51 (72) 08/05/17 19:30 66 12 109/49 (69) 97 08/05/17 19:00 69 12 96/51 (66) 97 110/45 (66) 08/05/17 18:00 73 08/05/17 16:07 97 35 08/05/17 16:00 63 08/05/17 16:00 35 08/05/17 16:00 99.1 63 12 103/53 (70) 97 116/49 (71) Intake & Output 08/06/17 08/06/17 07:00 19:00 Intake Total 2613 ml 1480.3 ml Output Total 350 ml Balance 2263 ml 1480.3 ml IV Total 2403 ml 1480.3 ml Tube Irrigant 150 ml Other 60 ml Output Urine Total 350 ml # Bowel Movements 0 Physical Exam CONSTITUTIONAL/GENERAL: This is an obese patient, intubated, lightly sedated, in no apparent distress. TUBES/LINES/DRAINS: ETT, OGT, Mary, left PIV 2, right IJ central line. Bilateral soft wrist restraints. SKIN: No jaundice, rashes, or lesions. Ecchymoses on upper extremities. No wounds seen anteriorly. Skin temperature appropriate. Not diaphoretic. HEAD: Atraumatic. Normocephalic. EYES: Pupils equal and round and reactive. No scleral icterus. No injection or drainage ENT: Nose without bleeding or purulent drainage. NECK: Trachea midline. Supple. CARDIOVASCULAR: Regular rate and rhythm without murmurs, gallops, or rubs. No JVD. Peripheral pulses symmetric. RESPIRATORY/CHEST: Symmetric, unlabored respirations. Clear to auscultation. Breath sounds equal bilaterally. GASTROINTESTINAL: Abdomen obese, distended. Limited abdominal exam due to body habitus. Bowel sounds present. GENITOURINARY: Without palpable bladder distension. Mary catheter in place. MUSCULOSKELETAL: Extremities without clubbing or cyanosis. Generalized edema right greater than left. No mottling or clubbing. NEUROLOGICAL: Arousable, intubated, lightly sedated, not following simple commands. PSYCHIATRIC: Sedated, appears calm. . Diagnostic Tests Laboratory Laboratory Tests Test 08/03/17 16:00 08/03/17 20:25 08/04/17 04:20 08/04/17 10:20 Blood Gas Puncture Site ART LINE Blood Gas Patient Temperature 98.6 Blood Gas HCO3 25 mmol/L (22-26) Blood Gas Base Excess 1.9 mmol/L (-2-2) Blood Gas Oxygen Saturation 94 % (90-100) Arterial Blood pH 7.48 (7.380-7.420) Arterial Blood Partial Pressure CO2 34 mmHg (38-42) Arterial Blood Partial Pressure O2 76 mmHg (61-120) Arterial Blood Oxygen Content 14.3 Vol % (12.0-20.0) Arterial Blood Carboxyhemoglobin 1.1 % (0-4) Arterial Blood Methemoglobin 1.3 % (0-2) Blood Gas Hemoglobin 10.8 G/DL (12.0-16.0) Oxygen Delivery Device VENTILATOR Blood Gas Ventilator Setting [facility]/ Blood Gas Inspired Oxygen 50 % Hemoglobin 10.7 GM/DL (11.6-15.3) 10.4 GM/DL (11.6-15.3) Hematocrit 31.7 % (35.0-46.0) 30.9 % (35.0-46.0) Blood Urea Nitrogen 65 MG/DL (7-18) 56 MG/DL (7-18) Creatinine 2.70 MG/DL (0.50-1.00) 2.11 MG/DL (0.50-1.00) Random Glucose 158 MG/DL (74-106) 125 MG/DL (74-106) Total Protein 5.4 GM/DL (6.4-8.2) 5.1 GM/DL (6.4-8.2) Calcium Level 7.1 MG/DL (8.5-10.1) 7.3 MG/DL (8.5-10.1) Sodium Level 142 MEQ/L (136-145) 144 MEQ/L (136-145) Potassium Level 2.3 MEQ/L (3.5-5.1) 3.4 MEQ/L (3.5-5.1) Chloride Level 103 MEQ/L (98-107) 107 MEQ/L (98-107) Carbon Dioxide Level 25.9 MEQ/L (21.0-32.0) 22.6 MEQ/L (21.0-32.0) Anion Gap 13 MEQ/L (5-15) 14 MEQ/L (5-15) Estimat Glomerular Filtration Rate 17 ML/MIN (>89) 23 ML/MIN (>89) Protein Corrected Calcium 8.0 MG/DL (8.5-10.1) 8.4 MG/DL (8.5-10.1) White Blood Count 23.3 TH/MM3 (4.0-11.0) Red Blood Count 3.58 MIL/MM3 (4.00-5.30) Mean Corpuscular Volume 86.2 FL (80.0-100.0) Mean Corpuscular Hemoglobin 29.0 PG (27.0-34.0) Mean Corpuscular Hemoglobin Concent 33.7 % (32.0-36.0) Red Cell Distribution Width 13.9 % (11.6-17.2) Platelet Count 254 TH/MM3 (150-450) Mean Platelet Volume 9.2 FL (7.0-11.0) Neutrophils (%) (Auto) 88.6 % (16.0-70.0) Lymphocytes (%) (Auto) 5.0 % (9.0-44.0) Monocytes (%) (Auto) 6.1 % (0.0-8.0) Eosinophils (%) (Auto) 0.1 % (0.0-4.0) Basophils (%) (Auto) 0.2 % (0.0-2.0) Neutrophils # (Auto) 20.6 TH/MM3 (1.8-7.7) Lymphocytes # (Auto) 1.2 TH/MM3 (1.0-4.8) Monocytes # (Auto) 1.4 TH/MM3 (0-0.9) Eosinophils # (Auto) 0.0 TH/MM3 (0-0.4) Basophils # (Auto) 0.0 TH/MM3 (0-0.2) CBC Comment AUTO DIFF Differential Total Cells Counted 100 Neutrophils % (Manual) 77 % (16-70) Band Neutrophils % 14 % (0-6) Lymphocytes % 2 % (9-44) Monocytes % 6 % (0-8) Eosinophils % 1 % (0-4) Neutrophils # (Manual) 21.2 TH/MM3 (1.8-7.7) Differential Comment FINAL DIFF MANUAL Platelet Estimate NORMAL (NORMAL) Platelet Morphology Comment CLUMPED (NORMAL) Red Cell Morphology Comment NORMAL (NORMAL) B-Type Natriuretic Peptide 252 PG/ML (0-100) Albumin 1.4 GM/DL (3.4-5.0) Phosphorus Level 1.6 MG/DL (2.5-4.9) Magnesium Level 2.2 MG/DL (1.5-2.5) Alkaline Phosphatase 83 U/L (45-117) Aspartate Amino Transf (AST/SGOT) 32 U/L (15-37) Alanine Aminotransferase (ALT/SGPT) 95 U/L (10-53) Total Bilirubin 0.7 MG/DL (0.2-1.0) Troponin I 0.23 NG/ML (0.02-0.05) Lipase 134 U/L (73-393) Test 08/04/17 17:15 08/04/17 23:15 08/05/17 05:10 08/05/17 08:00 White Blood Count 22.0 TH/MM3 (4.0-11.0) 23.7 TH/MM3 (4.0-11.0) Red Blood Count 3.51 MIL/MM3 (4.00-5.30) 3.49 MIL/MM3 (4.00-5.30) Hemoglobin 10.4 GM/DL (11.6-15.3) 10.2 GM/DL (11.6-15.3) 10.0 GM/DL (11.6-15.3) Hematocrit 30.2 % (35.0-46.0) 30.5 % (35.0-46.0) 30.2 % (35.0-46.0) Mean Corpuscular Volume 86.2 FL (80.0-100.0) 86.5 FL (80.0-100.0) Mean Corpuscular Hemoglobin 29.7 PG (27.0-34.0) 28.8 PG (27.0-34.0) Mean Corpuscular Hemoglobin Concent 34.5 % (32.0-36.0) 33.2 % (32.0-36.0) Red Cell Distribution Width 13.8 % (11.6-17.2) 13.9 % (11.6-17.2) Platelet Count 242 TH/MM3 (150-450) 240 TH/MM3 (150-450) Mean Platelet Volume 8.7 FL (7.0-11.0) 8.9 FL (7.0-11.0) Prothrombin Time 16.1 SEC (9.8-11.6) Prothromb Time International Ratio 1.6 RATIO Activated Partial Thromboplast Time 33.5 SEC (24.3-30.1) 52.8 SEC (24.3-30.1) 157.1 SEC (24.3-30.1) 58.8 SEC (24.3-30.1) Neutrophils (%) (Auto) 89.5 % (16.0-70.0) Lymphocytes (%) (Auto) 4.8 % (9.0-44.0) Monocytes (%) (Auto) 5.0 % (0.0-8.0) Eosinophils (%) (Auto) 0.6 % (0.0-4.0) Basophils (%) (Auto) 0.1 % (0.0-2.0) Neutrophils # (Auto) 21.2 TH/MM3 (1.8-7.7) Lymphocytes # (Auto) 1.1 TH/MM3 (1.0-4.8) Monocytes # (Auto) 1.2 TH/MM3 (0-0.9) Eosinophils # (Auto) 0.1 TH/MM3 (0-0.4) Basophils # (Auto) 0.0 TH/MM3 (0-0.2) CBC Comment DIFF FINAL Differential Comment Blood Urea Nitrogen 45 MG/DL (7-18) Creatinine 1.55 MG/DL (0.50-1.00) Random Glucose 140 MG/DL (74-106) Total Protein 5.1 GM/DL (6.4-8.2) Albumin 1.3 GM/DL (3.4-5.0) Calcium Level 7.0 MG/DL (8.5-10.1) Phosphorus Level 2.6 MG/DL (2.5-4.9) Alkaline Phosphatase 83 U/L (45-117) Aspartate Amino Transf (AST/SGOT) 28 U/L (15-37) Alanine Aminotransferase (ALT/SGPT) 73 U/L (10-53) Total Bilirubin 0.7 MG/DL (0.2-1.0) Sodium Level 143 MEQ/L (136-145) Potassium Level 3.3 MEQ/L (3.5-5.1) Chloride Level 106 MEQ/L (98-107) Carbon Dioxide Level 24.4 MEQ/L (21.0-32.0) Anion Gap 13 MEQ/L (5-15) Estimat Glomerular Filtration Rate 32 ML/MIN (>89) Protein Corrected Calcium 8.1 MG/DL (8.5-10.1) Lipase 119 U/L (73-393) Random Vancomycin Level 9.7 COMMENT Test 08/05/17 14:59 08/05/17 20:15 08/05/17 22:00 08/06/17 04:45 Activated Partial Thromboplast Time 76.6 SEC (24.3-30.1) 49.7 SEC (24.3-30.1) 54.1 SEC (24.3-30.1) Random Cortisol 20.4 MCG/DL White Blood Count 29.7 TH/MM3 (4.0-11.0) Red Blood Count 3.37 MIL/MM3 (4.00-5.30) Hemoglobin 9.9 GM/DL (11.6-15.3) Hematocrit 29.5 % (35.0-46.0) Mean Corpuscular Volume 87.5 FL (80.0-100.0) Mean Corpuscular Hemoglobin 29.2 PG (27.0-34.0) Mean Corpuscular Hemoglobin Concent 33.4 % (32.0-36.0) Red Cell Distribution Width 14.0 % (11.6-17.2) Platelet Count 248 TH/MM3 (150-450) Mean Platelet Volume 9.0 FL (7.0-11.0) Neutrophils (%) (Auto) 90.3 % (16.0-70.0) Lymphocytes (%) (Auto) 4.8 % (9.0-44.0) Monocytes (%) (Auto) 4.2 % (0.0-8.0) Eosinophils (%) (Auto) 0.6 % (0.0-4.0) Basophils (%) (Auto) 0.1 % (0.0-2.0) Neutrophils # (Auto) 26.8 TH/MM3 (1.8-7.7) Lymphocytes # (Auto) 1.4 TH/MM3 (1.0-4.8) Monocytes # (Auto) 1.2 TH/MM3 (0-0.9) Eosinophils # (Auto) 0.2 TH/MM3 (0-0.4) Basophils # (Auto) 0.0 TH/MM3 (0-0.2) CBC Comment DIFF FINAL Differential Comment Blood Urea Nitrogen 43 MG/DL (7-18) Creatinine 1.29 MG/DL (0.50-1.00) Random Glucose 169 MG/DL (74-106) Total Protein 5.1 GM/DL (6.4-8.2) Albumin 1.3 GM/DL (3.4-5.0) Calcium Level 7.8 MG/DL (8.5-10.1) Alkaline Phosphatase 76 U/L (45-117) Aspartate Amino Transf (AST/SGOT) 16 U/L (15-37) Alanine Aminotransferase (ALT/SGPT) 51 U/L (10-53) Total Bilirubin 0.6 MG/DL (0.2-1.0) Sodium Level 142 MEQ/L (136-145) Potassium Level 3.6 MEQ/L (3.5-5.1) Chloride Level 106 MEQ/L (98-107) Carbon Dioxide Level 23.8 MEQ/L (21.0-32.0) Anion Gap 12 MEQ/L (5-15) Estimat Glomerular Filtration Rate 40 ML/MIN (>89) Lipase 104 U/L (73-393) Random Vancomycin Level 18.4 COMMENT Result Diagram: 08/06/17 0445 08/06/17 0445 Procedures 08/02/2017: Right IJ central line placement 08/03/2017: Endotracheal intubation . Assessment and Plan Disease Oriented Problem List: (1) GI bleed (2) Metabolic acidosis (3) Altered mental status (4) Sepsis (5) Acute renal failure (6) Adjustment disorder with depressed mood (7) Hypertension Symptom Scale: (1) Weakness 0-10 Scale: Unable to quantify (Right flaccidity on admission, improving) (2) Altered mental status 0-10 Scale: Unable to quantify (Baseline dementia, intubated, sedated.) Pertinent Non-Medical Issues Psychosocial:Patient originally from [place]. Moved to [place] over 20 years ago. 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 Patient is single. She reports that she had a son but "was given away". Both parents are , one brother Felice at known age secondary to acute CO. One remaining brother by the name of Davi Sood who she has not seen in over 12 years. Spiritual: No yazidi affiliation. Legal: No advanced directive paperwork has been completed. Ethical issues impacting care: Patient has a history of schizophrenia/psycho affective disorder with questionable dementia and at this time decision-making capacity cannot be determined. No family is available to serve as decision- maker at this time. Continuing to try to make contact with her brother. . Important Contacts Brother: Davi Sood (unable to reach). Continuous busy signal. Possible nephew:Davi DeleonJr. anisa (voicemail left), , unable to leave message. . Prognosis Her prognosis is guarded. She is admitted with severe dehydration, sepsis, pancreatitis, metabolic acidosis, acute kidney failure and GI bleed, then suffered ventilatory dependent respiratory failure. She is listed as an FULL CODE, by default, as no family decision-maker can be reached to discuss goals of care. At her previous admission November 2016 she had specified that she wished to be a no code, DNR/DNI. Community DNR was introduced at that time however the patient declined completion. Without the signed DNR, she reverted to a FULL CODE when returned to the facility. She has multiple system compromise and is at increased risk of continued decline and complications. . Code Status: Full Code (By default. Patient previously a DNR/DNI at 11/18 admission, refused to sign community DNR.) Plan PLAN: Legal decision maker: At this time the patient's capacity cannot be determined as she is intubated and sedated. Multiple attempts have been made to reach her brother and a possible nephew, however no phone contact has been able to be established, either at this visit or at the 11/2016 admission. At this time, no legal decision maker is available. Goals: TBD, pending identification of healthcare proxy. Updated [facility] report pending. CODE STATUS: FULL CODE by default. At previous admission 11/2016, patient stated she wished to be a DNR/DNI and did not wish any invasive interventions or procedures. Community DNR was introduced at that time and patient declined to complete. SYMPTOMS: * Weakness: Multifactorial, related to sepsis, dehydration, hypotension, acidosis, pancreatitis, general and technician terminal and repeater debility. At last evaluation prior to intubation, strength was 3/5 consistent with her prior admission in November 2016. She is undergoing rehydration and antibiotic therapy. Physical therapy is following. * Altered mental status: Multifactorial related to sepsis, hypotension, dehydration, acidosis, baseline psycho affective disorder/schizophrenia. She is currently intubated and sedated and a thorough assessment cannot be made at this time. She is following some commands at this time and can hopefully be medically extubated to further determine capacity and goals of care. SUMMARY This is a 76-year-old female with a history of psycho affective disorder/ schizophrenia, acute on chronic kidney insufficiency, wheelchair dependence admitted with sepsis, dehydration, hypotension, metabolic acidosis, pancreatitis now intubated and sedated in the intensive care unit. She had previously made herself a DNR/DNI but declined to complete the [facility] DNR form and so reverted to a FULL CODE when returned to her facility. On this admission she was unable to make her needs known due to her severe illness and has been intubated. She is now starting to respond to commands and can hopefully be medically extubated so capacity and goals of care can be addressed. She is reported to have a brother but we have been unable to make contact and he has not made contact with her during the time she has been at [facility]. Continued attempts are in progress to contact family. She is likely to have further decline, complications and re-hospitalizations. Palliative care will continue to follow the patient during hospital course as condition evolves, to assist patient/decision-maker with understanding of their medical conditions, weighing benefits/burdens of treatment options, for clarification of goals of treatment. Additionally will assist with any symptoms of palliative concern. . Time Spent Total Floor Time (mins): 27 (Total time to include review medical records, physical exam, attempts at contacting next of kin, case discussion with bedside RN.) >50% Counseling/Coord of Care: Yes Attestation To help prompt me to consider important information that might be impacting today's encounter and assessment, information from prior notes written by myself or my colleagues may have been "brought forward" into today's note. My signature on this note, however, is an attestation that I personally performed the exam, history, and/or decision-making noted today, and, unless otherwise indicated, the interactions with patient, family, and staff as well as the review of records all occurred today. I also attest that the listed assessment and stated plan reflect my best clinical judgment today based on the combination of historical information, prior notes, and today's exam/ interactions. When time spent is documented, it refers only to time spent today by the signer, or if indicated, combined time spent today by collaborating physician/nurse practitioner. Celia Mendez Aug 06, 2017 15:51
[2017-08-06] MEDS: PROPOFOL 1000 MG/100 ML INJ 100 ML IV PRN (16:15)
--- NOTE | 2017-08-06 16:49 | RADRPT ---
EXAM DATE: 08/06/2017 4:46 PM EDT AGE/SEX: 76 years / Female INDICATIONS: Altered mental status. CLINICAL DATA: This is the patient's initial encounter. Patient reports that signs and symptoms have been present for 1 day and indicates a pain score of Nonresponsive. MEDICAL/SURGICAL HISTORY: Cerebrovascular disease. None. RADIATION DOSE: 66.34 CTDI (mGy) COMPARISON: [facility] [place], CT BRAIN W/O CONTRAST, 08/01/2017. . TECHNIQUE: CT of the head without contrast. Using automated exposure control and adjustment of the mA and/or kV according to patient size, radiation dose was kept as low as reasonably achievable to ob tain optimal diagnostic quality images. FINDINGS: Cerebrum: There is an old stroke in the left occipital lobe and medial left parietal lobe. No eviden ce of hemorrhage. No interval change since the 08/01/2017 exam. There is diffuse atrophy. No subarachn oid or subdural hematoma is identified. Posterior Fossa: The cerebellum and brainstem are intact. The 4th ventricle is midline. The cerebe llopontine angle is unremarkable. Extracranial: The visualized portion of the orbits is intact. Diffuse ethmoidal sinus disease Skull: The calvaria is intact. No evidence of skull fracture. CONCLUSION: 1. 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 No evidence of hemorrhage or acute mass effect. Diffuse at rophy. Electronically signed by: Toni Proctor MD 08/06/2017 4:48 PM EDT
--- NOTE | 2017-08-06 16:54 | HHI.CCPN ---
Subjective Remarks/Hospital Course 76-year-old pleasantly demented female, [facility] resident. The patient was noted earlier today to have a sudden onset of right gaze, as well as right- sided weakness. She was also found to be very hypotensive. Initial blood pressure 60/20, which responded to fluids and increased to 90/60. She presented to the hospital as a stroke-alert. The MRI of brain obtained in the emergency department showed only questionable tiny subacute lacunar infarcts posterior periventricular white matter. Moderate to severe chronic ischemic changes in the periventricular white matter. Remote left parietal lobe infarct. The CT of the abdomen and pelvis however shows the abnormal pancreas with enlargement and peripancreatic inflammation and edema characteristic of acute pancreatitis. Cholelithiasis without pancreatic duct dilatation. 6: Afebrile. Patient continues to have severe metabolic acidosis sodium bicarbonate infusion continued. Patient on nonrebreather continuing to be weaned down . Patient bolused with 500 cc normal saline 1 this a.m.. Oliguric 150 cc urine output in the last 12 hours. Unable to assess the amount of IV fluid patient was given in the ED and overnight. No hematemesis or melena this a.m. Patient continues on Protonix twice daily. Patient currently on nonrebreather mask currently being weaned down O2 saturation 100% though PaO2 is 155. Triglycerides are pending. MRI is pending. 2: Afebrile. Overnight patient became hemodynamically unstable, central line placed patient currently on Levophed 12 mcgs/min. The patient FIO2 requirements are increasing, intubation planned. Echo report last night showed RV mildly dilated with RV systolic function mildly decreased. Concern for possible PE, however patient not a candidate in the setting of GI Bleed. Hgb and Hct trend stable. Metabolic acidosis resolved with NaHCO3 infusion, now decreased. Patient 's SVV continued elevation and BUN 77. Pt bolused IVF's this am. UOP, creatinine slightly improved overnight. Electrolytes being replaced and closely monitored. Discussed with GI AKI Spence after her discussion with Dr. Sanchez this am plan is for MRCP today by GI or Invasive Radiology. --> report indicates stone in CBD without ductal dilatation 08/04 Off levophed, remainsn on neosynephrine 80 mcg/min. RLE u/s shows extensive RLE DVT. No BMs overnight. Discussed with gastroenterology, Dr. Sanchez, who agrees with starting heparin drip and monitor closely for bleeding. HIDA scan yesterday shows no evidence of obstruction. LFTS trending down so GI has canceled IR consult for percutaneous transhepatic biliary drain. Creatinine down trending and urine output improved. 6/4 Now weaned off neosynephrine, on levophed 9 mcg/min, RN states unable to wean. Started on heparin drip yesterday, no evidence of bleeding. LFTs continue downtrend. Okay to resume tube feeds per GI, but OGT was coiled in mouth and was repositioned, so will need to confirm position before initiating tube feeds. Palliative care assisting with finding family, no success so far. Subjective: 6/5 Remains on levophed. CI 2.2,LVEF appears preserved on bedside ultrasound. Thirdspacing with anasarca. Not following commands today, clonus and rigidity noted so obtained stat CT brain which shows no acute changes. No fever. Holding neuroleptics/serotonergics. Objective Vital Signs Date Time Temp Pulse Resp B/P (MAP) Pulse Ox O2 Delivery O2 Flow Rate FiO2 08/06/17 16:15 82 87/50 08/06/17 16:09 97 35 08/06/17 12:00 99.5 12 Intake and Output 08/06/17 08/06/17 08/07/17 08:00 16:00 00:00 Intake Total 1963 ml 1480.3 ml Output Total 350 ml Balance 1613 ml 1480.3 ml Result Diagram: 08/06/17 0445 08/06/17 0445 Imaging Last [address] 08/01/17 0000 Signed Impressions: CONCLUSION: 1. No acute intracranial abnormality is identified. 2. However, there is encephalomalacia in the left parietal region and there is generalized atrophy with severe periventricular white matter low-attenuation c haracteristic of chronic microvascular ischemia. Chest X-Ray 08/01/17 Signed Impressions: CONCLUSION: Underinflated examination with small bilateral pleural effusions with compressi ve atelectasis at the lung bases. Carotid Artery Ultrasound 08/01/17 Signed Impressions: CONCLUSION: 1. Right Internal Carotid Artery: Findings indicate <50% stenosis. 2. Left Internal Carotid Artery: Findings indicate <50% stenosis. Abdomen/Pelvis CT 08/01/17 Signed Impressions: CONCLUSION: 1. The pancreas is abnormal with enlargement and peripancreatic inflammation a nd edema characteristic of acute pancreatitis. There is a small volume of free fluid in the abdomen and pelvis. 2. Cholelithiasis without pancreatic duct dilatation. 3. There is mild wall thickening of the inferior rectum with associated presac ral edema. 4. Small bilateral pleural effusions with associated compressive atelectasis. 5. There is a compression deformity of uncertain chronicity involving L3 and c ompression deformity with sclerosis involving T9. Objective Remarks Drips: Fentanyl 100 mcg/h Propofol is off Levophed 9 mcg/min Cardiac output 5.5,, SVV 9. GENERAL: This is a well-nourished, well-developed elderly female patient, awakens on sedation and makes eye contact but not following commands today. Orotracheally intubated. SKIN: No rashes, ecchymoses or lesions. Dry. HEAD: Atraumatic. Normocephalic. No temporal or scalp tenderness. EYES: Resists eye opening, pupils 2 mm equal round and reactive. Extraocular motions intact. No scleral icterus. No injection or drainage. NECK: Trachea midline. No JVD or lymphadenopathy. CARDIOVASCULAR: Regular rate and rhythm with soft murmurs, no gallops, no rubs. RESPIRATORY: Orotracheally intubated on mechanical ventilation. Coarse bilateral breath sounds. GASTROINTESTINAL: Abdomen soft, non-tender, mildly distended. No rebound or guarding. MUSCULOSKELETAL: Extremities without clubbing, cyanosis. 1+ edema of all extremities. NEUROLOGICAL: Awakes to voice, makes eye contact. Moves extremities spontaneously but not following commands.Bilateral clonus, rigid extremities and tremor, no eye deviation. Date of Insertion: Aug 02, 2017 Date of Insertion: Aug 03, 2017 A/P Assessment and Plan Plan by systems: Neurologic: Acute left lacunar stroke History of previous CVA Dementia Schizophrenia Depression 08/02 MRI-moderate to severe ischemic changes. Tiny subacute lacunar infarcts. Remote left parietal lobe infarct 08/02 MRA brain-negative 08/02-CT brain-no acute abnormality Carotids-<50% stenosis Patient is followed by neurology-Dr. Michelle Was not a candidate for TPA on admission due to acute GI bleed Rigidity and clonus ?serotonin syndrome. Hold zoloft , risperidone and fentanyl. Check EEG. Respiratory: Acute hypoxemic respiratory failure Intubated 08/03 On PRVC. Daily CPAP trial. Duo nebs every 6 hours scheduled every 2 hours as needed Ventilator bundle 08/02 CT-small bilateral pleural effusions bases D-dimer elevated.-suspicion for PE given the echo results-unable to do CT angiogram due to acute kidney injury. Does have extensive right lower extremity DVT so needs anticoagulation. Has not had any further bleeding. Discussed with gastroenterology, Dr. Sanchez, who recommends proceed with anticoagulation with heparin at this time and will address bleeding if it occurs. Cardiovascular: Hypovolemic and septic shock secondary to acute pancreatitis Art line is in place with Flowtrack monitoring ongoing. SVV is 9. Neosynephrine has been weaned off and she remains on Levophed. Will check cortisol. 08/02 echo-right ventricle mildly dilated. Right ventricular systolic function mildly decreased. EF 55-60% 08/03-troponin increased 0.03->0.27. Possibly secondary to acute kidney injury, infection. Conceivably could be related to PE but would not use TPA at this time anyway due to bleeding risk and she is not a candidate for CT pulmonary angiogram due to acute kidney injury. Cardiology has evaluated, Dr. Tang. He has not recommended any further ischemic workup and has signed off. Mild hypertriglyceridemia is not the etiology of pancreatitis. Is on gemfibrozil 600 mg p.o. twice daily Renal: Acute hypokalemia Acute hypophosphatemia Acute kidney injury Maintain Mary catheter -- Strict I/Os --Electrolyte replacement by protocol Follow-up CMP and phosphorus in the morning. Nephrology, Dr. Sheridan has now signed off. FEN/GI: Acute gallstone pancreatitis. Dyslipidemia GI bleed Elevated liver enzymes Chronic moderate protein calorie malnutrition Discontinue sodium bicarbonate infusion 84 cc/hr Broad-spectrum antibiotics 08/01 GI has been consulted Protonix twice daily Rectal wall thickening on the CT In ED patient was noted to have bright red blood per rectum. Was transfused 2 units packed red cells 08/01. Has not had any further bleeding. GI is not planning to scope at this time. Recommend proceed with anticoagulation for extensive DVT and possible PE and monitor closely for evidence of bleeding. 08/02- 1700 S/P MRI-at least one stone in the common bile duct. Dr. Mahoney spoke with Dr. Sanchez made him aware of patient's result. 08/03: MRCP demonstrates gallstones with cysts CBD stone. No dilatation of CBD. Minimal gallbladder wall thickening with trace fluid 08/03 HIDA scanno evidence of cystic duct or distal common bile duct obstruction. Normal gallbladder ejection fraction. Lipase now normalized at 134. LFTs downtrending. It appears she has passed a stone. Albumin 1.8 Jevity 1.5 20 cc/h, advance to goal rate. Heme/ID: Acute blood loss anemia 2/2 GI bleed Persistent leukocytosis Extensive right lower extremity DVT Monitor CBC Transfuse for hemoglobin less than 7 Patient transfused 2 units packed red blood cells in the ED (08/01) Ultrasound bilateral lower extremity 6/xtensive right lower extremity DVT including iliac vein and extending below the knee to the posterior tibial vein. Continue heparin drip. Initiated 08/04. Endocrine: Hyperglycemia hemoglobin A1c 5.6 Glucose monitoring per ICU protocol. Low-dose regimen -- SSI Prophylaxis: GI Prophylaxis Protonix BID DVT Prophylaxis Heparin drip as per above Lines: Right IJ central venous line 08/02 #5 Right radial art line in place, will need to remain in place for hemodynamic monitoring while weaning pressors. Only contact information I have for this patient is her brother, Davi Sood. Attempted to call him to provide update and to discuss risk benefits of anticoagulation. There is no answer. Patient has shown some signs of improvement but her prognosis remains guarded. She is not capacitated for medical decision-making. It appears there is no known healthcare surrogate/ proxy. Palliative care also following and trying to assist with locating family. Level 3 follow-up Fatuma Cotto MD Aug 06, 2017 16:54
--- NOTE | 2017-08-06 18:17 | PD.CONS ---
[facility] Service Rehabilitation Medicine Consult Requested By Patricio Michelle MD Reason for Consult Comprehensive rehabilitation evaluation. Primary Care Physician Unknown History of Present Illness Brisa Sood is a 76-year-old female admitted to [facility] 08/01/17 from nursing facility with acute onset of right-sided weakness and right gaze preference. Brain MRI showed questionable tiny subacute lacunar infarcts posterior periventricular white matter. Moderate to severe chronic ischemic changes in the periventricular white matter. Remote left parietal lobe infarct. Patient was noted to have hypotension with BP 60/20 and bloody stool which was heme positive which precluded initiation of TPA. CT abdomen and pelvis showed: pancreas is abnormal with enlargement and peripancreatic inflammation and edema characteristic of acute pancreatitis. Cholelithiasis without pancreatic duct dilatation. Compression deformity of uncertain chronicity involving L3 and compression deformity with sclerosis involving T9. Found to have right lower extremity DVT and started on heparin. Review of Systems ROS Limitations: Clinical Condition, Intubated, Altered Mental Status Past Family Social History Allergies: Coded Allergies: aspirin (Unverified Allergy, Severe, 10/16/16) PT HAS TINNITUS penicillin G (Unverified Allergy, Severe, 10/16/16) Past Medical History Dementia Schizophrenia Chronic kidney disease stage III GERD Osteoarthritis Depression/anxiety Compression fracture Past Surgical History Lumpectomy Hysterectomy Current Medications Current Medications Medications (Trade) Dose Ordered Sig/Nadia Route Start Time Stop Time Status Last Admin (NovoLOG SUPPLEMENTAL SCALE) 1 ACHS SQ 08/01/17 21:00 08/06/17 13:04 (D50w (Vial) Inj) 50 ml UNSCH PRN IV PUSH 08/01/17 20:00 (Glucagon Inj) 1 mg UNSCH PRN OTHER 08/01/17 20:00 (Lopid) 600 mg BIDAC PO 08/02/17 07:00 08/06/17 16:15 (risperDAL) 0.5 mg HS PO 08/01/17 22:00 Future Hold (Zoloft) 100 mg DAILY PO 08/02/17 09:00 Future Hold 08/06/17 08:10 (risperDAL) 2 mg HS PO 08/01/17 22:00 Future Hold (NS Flush) 2 ml UNSCH PRN IV FLUSH 08/01/17 21:15 (NS Flush) 2 ml BID IV FLUSH 08/02/17 09:00 08/06/17 08:09 (Tylenol) 650 mg Q6H PRN PO 08/01/17 21:15 08/03/17 22:58 (Dilaudid Pf Inj) 1 mg Q4H PRN IV PUSH 08/01/17 21:15 08/02/17 04:11 (Zofran Inj) 4 mg Q6H PRN IV PUSH 08/01/17 21:15 (Restoril) 15 mg HS PRN PO 08/01/17 21:15 Future Hold ([facility]) 1 Q361D XX 08/01/17 21:15 (Chlorhexidine 2% Cloth) 3 pack Taper DAILY@04 TOP 08/02/17 04:00 07/29/18 03:59 08/06/17 04:00 (Chlorhexidine 2% Cloth) 3 pack UNSCH PRN TOP 08/01/17 21:15 (Guillermina-Colace) 1 tab BID PO 08/02/17 09:00 08/06/17 08:10 (Milk Of Magnesia Liq) 30 ml Q12H PRN PO 08/01/17 21:15 (Senokot) 17.2 mg Q12H PRN PO 08/01/17 21:15 (Dulcolax Supp) 10 mg DAILY PRN RECTAL 08/01/17 21:15 (Lactulose Liq) 30 ml DAILY PRN PO 08/01/17 21:15 Pharmacy Profile Note 0 ml @ 0 mls/hr UNSCH OTHER 08/01/17 21:15 Aztreonam 2000 mg/ Sodium Chloride 100 ml @ 200 mls/hr Q8H IV 08/01/17 22:00 08/06/17 13:57 Metronidazole 100 ml @ 100 mls/hr Q8H IV 08/01/17 22:00 08/06/17 13:57 (Protonix Inj) 40 mg Q12H IV PUSH 08/02/17 00:00 08/06/17 13:03 Norepinephrine Bitartrate 250 ml @ 7.5 mls/hr TITRATE PRN IV 08/02/17 19:45 08/06/17 16:15 Fentanyl Citrate 250 ml @ 5 mls/hr TITRATE PRN IV 08/03/17 10:00 Future Hold 08/06/17 09:35 (Peridex 0.12% Liq) 15 ml BID@08,20 MT 08/03/17 20:00 08/06/17 08:10 (Duoneb Neb) 1 ampule Q6HR NEB NEB 08/03/17 16:00 08/06/17 14:58 (Duoneb Neb) 1 ampule Q2HR NEB PRN NEB 08/03/17 10:45 Propofol 100 ml @ 2.403 mls/ hr TITRATE PRN IV 08/03/17 16:15 08/06/17 16:15 Heparin Sodium/ Dextrose 250 ml @ 15 mls/hr TITRATE PRN IV 08/04/17 16:45 Future Hold 08/05/17 18:46 Potassium Chloride 100 ml @ 50 mls/hr Q2H PRN IV 08/05/17 17:45 Potassium Chloride 100 ml @ 50 mls/hr Q2H PRN IV 08/05/17 17:45 (K-Lyte Cl Eff) 50 meq UNSCH PRN PO 08/05/17 17:45 Potassium Chloride 100 ml @ 25 mls/hr UNSCH PRN IV 08/05/17 17:45 Potassium Chloride 100 ml @ 50 mls/hr Q2H PRN IV 08/05/17 17:45 08/05/17 20:34 Magnesium Sulfate 4 gm/Sodium Chloride 100 ml @ 50 mls/hr UNSCH PRN IV 08/05/17 17:45 (Mag-Ox) 800 mg UNSCH PRN PO 08/05/17 17:45 Magnesium Sulfate 2 gm/Sodium Chloride 100 ml @ 50 mls/hr UNSCH PRN IV 08/05/17 17:45 (K-Phos) 2,000 mg Q4H PRN PO 08/05/17 17:45 Sodium Phosphate 30 mmol/Sodium Chloride 250 ml @ 42 mls/hr UNSCH PRN IV 08/05/17 17:45 (K-Phos) 2,000 mg UNSCH PRN PO/TUBE 08/05/17 17:45 Potassium Phosphate 30 mmol/ Sodium Chloride 260 ml @ 42 mls/hr UNSCH PRN IV 08/05/17 17:45 Vancomycin HCl 1500 mg/Sodium Chloride 515 ml @ 250 mls/hr Q24H IV 08/06/17 14:00 08/06/17 13:04 ([facility]dered Lab Info) SPECIFIC LAB TO BE DRAWN:VANCO TROUGH DATE TO BE DRMelisa.. ONCE ONCE .XX 6/7/18 13:45 08/08/17 13:46 (Versed Inj) 2 mg Q15M PRN IV PUSH 08/06/17 15:15 Family History Unable to obtain Social History Prior to admission patient was living at [facility]. Exam I&O / VS 08/06/17 08/06/17 08/07/17 15:00 23:00 07:00 Intake Total 200 ml 1280.3 ml Balance 200 ml 1280.3 ml IV Total 200 ml 1280.3 ml Vital Signs Date Time Temp Pulse Resp B/P (MAP) Pulse Ox O2 Delivery O2 Flow Rate FiO2 08/06/17 17:12 100 100 08/06/17 16:15 82 87/50 08/06/17 16:09 97 35 08/06/17 16:00 35 08/06/17 14:00 74 08/06/17 12:10 97 35 08/06/17 12:00 35 08/06/17 12:00 77 08/06/17 12:00 99.5 77 12 91/52 (65) 97 101/48 (65) 08/06/17 11:00 76 12 93/55 (68) 97 105/48 (67) 08/06/17 10:00 78 12 99/52 (68) 97 111/50 (70) 08/06/17 10:00 78 08/06/17 09:00 75 12 99/50 (66) 97 111/52 (71) 08/06/17 08:36 97 35 08/06/17 08:00 35 08/06/17 08:00 90 08/06/17 08:00 99.1 90 12 117/57 (77) 97 125/61 (82) 08/06/17 08:00 90 117/57 08/06/17 07:00 78 12 108/56 (73) 97 119/57 (77) 08/06/17 07:00 78 108/56 08/06/17 06:01 86 112/53 08/06/17 06:00 74 08/06/17 05:00 81 12 94/54 (67) 98 102/46 (64) 08/06/17 04:30 75 12 96/44 (61) 98 08/06/17 04:29 98 35 08/06/17 04:00 99.0 74 12 100/53 (69) 99 118/51 (73) 6 04:00 35 6 04:00 74 08/06/17 03:30 69 12 110/49 (69) 98 6/18 03:00 69 12 98/51 (67) 98 116/51 (72) 08/06/17 02:30 69 12 108/50 (69) 98 618 02:00 72 12 98/50 (66) 97 109/50 (69) 08/06/17 02:00 72 08/06/17 01:35 97 35 08/06/17 01:30 76 12 105/49 (67) 97 08/06/17 01:00 80 12 88/53 (65) 97 102/48 (66) 08/06/17 00:45 87 104/48 08/06/17 00:30 90 12 107/48 (67) 98 08/06/17 00:00 99.0 98 15 96/54 (68) 98 115/48 (70) 08/06/17 00:00 35 08/06/17 00:00 98 08/05/17 23:30 87 13 132/61 (84) 96 08/05/17 23:00 66 12 98/52 (67) 99 116/51 (72) 08/05/17 22:30 69 12 109/47 (67) 99 18 22:10 97 35 08/05/17 22:00 69 12 94/51 (65) 99 119/51 (73) 08/05/17 22:00 69 08/05/17 21:36 72 117/51 18 21:30 72 12 112/49 (70) 99 18 21:00 79 13 111/56 (74) 97 132/58 (82) 08/05/17 20:30 82 13 126/58 (80) 97 18 20:00 66 18 20:00 99 35 /18 20:00 35 08/05/17 20:00 99.6 66 12 104/54 (71) 98 116/51 (72) 08/05/17 19:30 66 12 109/49 (69) 97 18 19:00 69 12 96/51 (66) 97 110/45 (66) General: Intubated, No acute distress, Other (Mary/SCDs/OG tube) Respiratory: BS equal, Coarse breath sounds Gastrointestinal: Positive Bowel Sounds, Distended Cardiovascular: Normal rate, Regular Rhythm Musculoskeletal: ROM (Decreased range of motion at the ankles bilaterally), Swelling (2+ upper and lower extremity edema) Orientation: unable to asses Self, unable to asses Place, unable to asses Time , unable to asses Situation Motor: Right Upper Extremity (Spontaneous movement but not following commands) , Left Upper Extremity (Hydro Generation Supervisor to command approximately 50% of the time), Right Lower Extremity (No spontaneous or voluntary movement), Left Lower Extremity ( Withdraws) Sensory Unable to assess Babinski: Positive (Equivocal bilaterally) Clonus: Positive (Left lower extremity) Assessment and Plan Diagnosis: (1) Stroke ICD Codes: I63.9 - Cerebral infarction, unspecified Assessment 1. Stroke currently intubated on vent 2. Pancreatitis 3. GI bleed 4. Dementia 5. History of schizophrenia 6. Chronic kidney disease stage III 7. GERD 8. Depression and anxiety 9. Osteoarthritis/compression fracture 10. Right lower extremity DVT Plan 1. PT/OT are providing range of motion. Would mobilize to stretcher chair when medically neurologically feasible monitoring skin carefully 2. Palliative care is following and attempting to contact family 3. Case management is following and is in contact with previous [facility] facility 4. Continue to reposition every 2 hours and monitor skin carefully for breakdown 5. Will follow while hospitalized and at discharge as appropriate Thank you for this consult Cleo Campoverde MD Aug 06, 2017 18:17
[2017-08-06] MEDS: RESP: ALBUTEROL 2.5 MG/IPRATROPIUM 0.5 MG NEB (PRN) NEB (23:19)
[2017-08-07] VITALS (17 sets, daily range): BP systolic 100–133; BP diastolic 45–60; PULSE 66–88; RESP 12; TEMP 98.6–98.8; O2SAT 96–100
[2017-08-07] MEDS: CHLORHEXIDINE GLUCONATE 2 % 1 PACK (2 CLOTHS) TOP SCH (04:00)
[2017-08-07] MEDS: RESP: ALBUTEROL 2.5 MG/IPRATROPIUM 0.5 MG NEB (SCH) NEB ×3 (04:14→15:16)
[2017-08-07] MEDS: NOREPINEPHRINE 4 MG/D5W 250 ML IV PRN ×3 (05:49→20:22)
[2017-08-07] MEDS: AZTREONAM INJ 2,000 MG in SODIUM CHLORIDE 0.9% INJ 100 ML IV SCH ×3 (05:49→21:39)
[2017-08-07] MEDS: GEMFIBROZIL 600 MG TAB PO SCH ×2 (05:49→16:18)
[2017-08-07] MEDS: PROPOFOL 1000 MG/100 ML INJ 100 ML IV PRN ×2 (05:49→22:36)
[2017-08-07] MEDS: metroNIDAZOLE 500 MG INJ 100 ML IV SCH ×3 (05:50→21:38)
[2017-08-07 05:58] LABS: HEMOGLOBIN 9.2 GM/DL (11.6-15.3); MEAN CELL VOLUME 88.2 FL (80.0-100.0); MEAN CORPUSCULAR HEMOGLOBIN 29.1 PG (27.0-34.0); PLATELET COUNT 264 TH/MM3 (150-450); RED BLOOD COUNT 3.17 MIL/MM3 (4.00-5.30); RED CELL DISTRIBUTION WIDTH 13.8 % (11.6-17.2); WHITE BLOOD COUNT 33.9 TH/MM3 (4.0-11.0)
[2017-08-07 06:43] LABS: BICARBONATE 24.2 MEQ/L (21.0-32.0); CALCIUM 7.6 MG/DL (8.5-10.1); CREATININE 1.18 MG/DL (0.50-1.00); MAGNESIUM 1.6 MG/DL (1.5-2.5)
[2017-08-07] MEDS: CHLORHEXIDINE 0.12% (ORAL KIT) 15 ML CUP MT SCH ×2 (08:54→20:00)
[2017-08-07] MEDS: DOCUSATE SODIUM 50 MG/SENNA 8.6 MG TAB PO SCH ×2 (08:54→21:00)
[2017-08-07] MEDS: SODIUM CHLORIDE 0.9% FLUSH 10 ML FLUSH IV FLUSH SCH ×2 (08:54→21:39)
[2017-08-07] MEDS: INSULIN ASPART SUPPLEMENTAL SCALE SQ SCH ×4 (08:58→21:00)
--- NOTE | 2017-08-07 09:54 | HHI.CCPN ---
Subjective Remarks/Hospital Course 76-year-old pleasantly demented female, detention resident. The patient was noted earlier today to have a sudden onset of right gaze, as well as right- sided weakness. She was also found to be very hypotensive. Initial blood pressure 60/20, which responded to fluids and increased to 90/60. She presented to the hospital as a stroke-alert. The MRI of brain obtained in the emergency department showed only questionable tiny subacute lacunar infarcts posterior periventricular white matter. Moderate to severe chronic ischemic changes in the periventricular white matter. Remote left parietal lobe infarct. The CT of the abdomen and pelvis however shows the abnormal pancreas with enlargement and peripancreatic inflammation and edema characteristic of acute pancreatitis. Cholelithiasis without pancreatic duct dilatation. 6: Afebrile. Patient continues to have severe metabolic acidosis sodium bicarbonate infusion continued. Patient on nonrebreather continuing to be weaned down . Patient bolused with 500 cc normal saline 1 this a.m.. Oliguric 150 cc urine output in the last 12 hours. Unable to assess the amount of IV fluid patient was given in the ED and overnight. No hematemesis or melena this a.m. Patient continues on Protonix twice daily. Patient currently on nonrebreather mask currently being weaned down O2 saturation 100% though PaO2 is 155. Triglycerides are pending. MRI is pending. 2: Afebrile. Overnight patient became hemodynamically unstable, central line placed patient currently on Levophed 12 mcgs/min. The patient FIO2 requirements are increasing, intubation planned. Echo report last night showed RV mildly dilated with RV systolic function mildly decreased. Concern for possible PE, however patient not a candidate in the setting of GI Bleed. Hgb and Hct trend stable. Metabolic acidosis resolved with NaHCO3 infusion, now decreased. Patient 's SVV continued elevation and BUN 77. Pt bolused IVF's this am. UOP, creatinine slightly improved overnight. Electrolytes being replaced and closely monitored. Discussed with GI AKI Spence after her discussion with Dr. Sanchez this am plan is for MRCP today by GI or Invasive Radiology. --> report indicates stone in CBD without ductal dilatation 08/04 Off levophed, remainsn on neosynephrine 80 mcg/min. RLE u/s shows extensive RLE DVT. No BMs overnight. Discussed with gastroenterology, Dr. Sanchez, who agrees with starting heparin drip and monitor closely for bleeding. HIDA scan yesterday shows no evidence of obstruction. LFTS trending down so GI has canceled IR consult for percutaneous transhepatic biliary drain. Creatinine down trending and urine output improved. / Now weaned off neosynephrine, on levophed 9 mcg/min, RN states unable to wean. Started on heparin drip yesterday, no evidence of bleeding. LFTs continue downtrend. Okay to resume tube feeds per GI, but OGT was coiled in mouth and was repositioned, so will need to confirm position before initiating tube feeds. Palliative care assisting with finding family, no success so far. 08/06 Remains on levophed. CI 2.2,LVEF appears preserved on bedside ultrasound. Thirdspacing with anasarca. Not following commands today, clonus and rigidity noted so obtained stat CT brain which shows no acute changes. No fever. Holding neuroleptics/serotonergics. Subjective: 08/07 Afebrile. WBC up to 33.9. Remains on levophed, requirement increased to 10 mcg/min. No BM since admission but had a large BM after bowel regimen given today, has been tolerating tube feeds. Not tolerating CPAP. Had clonus, rigidity and shaking of BLE with decreased responsiveness yesterday. CT brain negative. EEG mild encephalopathy. Suspected serotonin syndrome, now rigidity and clonus is resolved after stopping fentanyl, risperdal , zoloft. On low dose propofol. Still trying to find family. Objective Vital Signs Date Time Temp Pulse Resp B/P (MAP) Pulse Ox O2 Delivery O2 Flow Rate FiO2 08/07/17 07:33 98 35 08/07/17 06:00 80 08/07/17 05:49 109/44 08/07/17 04:00 98.6 12 Intake and Output 08/07/17 08/07/17 08/08/17 08:00 16:00 00:00 Intake Total 740 ml Output Total 300 ml Balance 440 ml Result Diagram: 08/07/17 0529 08/07/17 0529 Imaging Last [address] 08/01/17 0000 Signed Impressions: CONCLUSION: 1. No acute intracranial abnormality is identified. 2. However, there is encephalomalacia in the left parietal region and there is generalized atrophy with severe periventricular white matter low-attenuation c haracteristic of chronic microvascular ischemia. Chest X-Ray 08/01/17 Signed Impressions: CONCLUSION: Underinflated examination with small bilateral pleural effusions with compressi ve atelectasis at the lung bases. Carotid Artery Ultrasound 08/01/17 Signed Impressions: CONCLUSION: 1. Right Internal Carotid Artery: Findings indicate <50% stenosis. 2. Left Internal Carotid Artery: Findings indicate <50% stenosis. Abdomen/Pelvis CT 08/01/17 Signed Impressions: CONCLUSION: 1. The pancreas is abnormal with enlargement and peripancreatic inflammation a nd edema characteristic of acute pancreatitis. There is a small volume of free fluid in the abdomen and pelvis. 2. Cholelithiasis without pancreatic duct dilatation. 3. There is mild wall thickening of the inferior rectum with associated presac ral edema. 4. Small bilateral pleural effusions with associated compressive atelectasis. 5. There is a compression deformity of uncertain chronicity involving L3 and c ompression deformity with sclerosis involving T9. Objective Remarks GENERAL: This is an elderly, critically ill appearing female patient, awakens on sedation and makes eye contact but not following commands today. SKIN: No rashes, ecchymoses or lesions. Dry. HEAD: Atraumatic. Normocephalic. No temporal or scalp tenderness. EYES: Resists eye opening, pupils 2 mm equal round and reactive. Extraocular motions intact. No scleral icterus. No injection or drainage. NECK: Trachea midline. No JVD or lymphadenopathy. No meningismus CARDIOVASCULAR: Regular rate and rhythm with no m/r/g RESPIRATORY: Orotracheally intubated on mechanical ventilation. Coarse bilateral breath sounds, diminished at bases. GASTROINTESTINAL: Abdomen soft, non-tender, mildly distended. No rebound or guarding. : Mary in place MUSCULOSKELETAL: Extremities without clubbing, cyanosis. Anasarca. NEUROLOGICAL: Awakes to voice, makes eye contact. Moves extremities spontaneously but not following commands. Legs no longer rigid. No clonus. DTR 2 + patellar. Date of Insertion: Aug 02, 2017 Date of Insertion: Aug 03, 2017 A/P Assessment and Plan Plan by systems: Neurologic: Acute left lacunar stroke History of previous CVA Dementia Schizophrenia Depression 08/02 MRI-moderate to severe ischemic changes. Tiny subacute lacunar infarcts. Remote left parietal lobe infarct 08/02 MRA brain-negative 08/02-CT brain-no acute abnormality Carotids-<50% stenosis Patient is followed by neurology-Dr. Michelle Was not a candidate for TPA on admission due to acute GI bleed Rigidity and clonus ?serotonin syndrome, now improved after Holding zoloft , risperidone and fentanyl. EEG - mild encephalopathy, no seizure Respiratory: Acute hypoxemic respiratory failure Intubated 08/03 On PRVC. daily CPAP trial, not tolerating. Duo nebs every 6 hours scheduled every 2 hours as needed Ventilator bundle 08/02 CT-small bilateral pleural effusions bases D-dimer elevated.-suspicion for PE given the echo results-unable to do CT angiogram due to acute kidney injury. Does have extensive right lower extremity DVT so needs anticoagulation. Has not had any further bleeding. Discussed with gastroenterology, Dr. Sanchez 08/04, and proceeded with anticoagulation with heparin Cardiovascular: Hypovolemic and septic shock secondary to acute pancreatitis Art line is in place with Flowtrack monitoring ongoing. SVV is 9. Neosynephrine has been weaned off. She remains on Levophed, unable to wean. Bedside cardiac u/s hyperdynamic, appears septic and third-spacing. Cortisol 20. 08/02 echo-right ventricle mildly dilated. Right ventricular systolic function mildly decreased. EF 55-60% 08/03-troponin increased 0.03->0.27. Possibly secondary to acute kidney injury, infection. Conceivably could be related to PE but would not use TPA at this time anyway due to bleeding risk and she is not a candidate for CT pulmonary angiogram due to acute kidney injury. Cardiology has evaluated, Dr. Tang. He has not recommended any further ischemic workup and has signed off. Mild hypertriglyceridemia is not the etiology of pancreatitis. Is on gemfibrozil 600 mg p.o. twice daily Renal: Acute hypokalemia Acute hypophosphatemia Acute kidney injury Maintain Mary catheter -- Strict I/Os --Electrolyte replacement by protocol Follow-up CMP and phosphorus in the morning. Nephrology, Dr. Sheridan has now signed off. FEN/GI: Acute gallstone pancreatitis, resolved. Choledocholithiasis Dyslipidemia GI bleed, resolved Elevated liver enzymes Chronic moderate protein calorie malnutrition 08/02- 1700 S/P MRI-at least one stone in the common bile duct. Dr. Mahoney spoke with Dr. Sanchez made him aware of patient's result. 08/03: MRCP demonstrates gallstones with cysts CBD stone. No dilatation of CBD. Minimal gallbladder wall thickening with trace fluid 08/03 HIDA scanno evidence of cystic duct or distal common bile duct obstruction. Normal gallbladder ejection fraction. Lipase now normalized at 134. LFTs downtrending. It appears she has passed a stone. Protonix twice daily Rectal wall thickening on the CT In ED patient was noted to have bright red blood per rectum. Was transfused 2 units packed red cells 08/01. Has not had any further bleeding. GI is not planning to scope at this time. Recommended proceed with anticoagulation for extensive DVT and possible PE and monitor closely for evidence of bleeding. Jevity 1.5 20 cc/h, advance to goal rate 50/hr per nutrition recs. Heme: Acute blood loss anemia 2/2 GI bleed Persistent leukocytosis Extensive right lower extremity DVT Monitor CBC Transfuse for hemoglobin less than 7 Patient transfused 2 units packed red blood cells in the ED (08/01) Ultrasound bilateral lower extremity 6/xtensive right lower extremity DVT including iliac vein and extending below the knee to the posterior tibial vein. Continue heparin drip. Initiated 08/04. Hgbs have been relatively stable. ID: Septic shock secondary to gallstone pancreatitis Has been on broad-spectrum antibiotics: Vancomycin, aztreonam, Flagyl since #7 due to septic shock. She appears to be having recurrent sepsis given worsening leukocytosis, worsening hypotension, increased insulin resistance. LFTs and lipase remain normal. No diarrhea. Could be related to invasive lines which I have discussed with her brother, however he does not want her to undergo any invasive procedures to replace them so will leave in place. Pancultured. Added antifungal coverage empirically. Endocrine: Hyperglycemia hemoglobin A1c 5.6 Glucose monitoring per ICU protocol. Low-dose regimen. Glucose trending upward , monitor and increase to medium dose if not meeting target. -- SSI Prophylaxis: GI Prophylaxis Protonix BID DVT Prophylaxis Heparin drip as per above Lines: Right IJ central venous line 08/02 #6 Right radial art line in place, will need to remain in place for hemodynamic monitoring while weaning pressors. Palliative care updated brother, Davi Sood and code status changed to DNR as he states he will honor patients prior wishes expressed during last hospitalization. I provided additional update. He indicates he does not want any additional invasive procedures and therefore does not want CVL or art line replaced, no trach/PEG, no ERCP, etc. Level 3 f/u. Fatuma Cotto MD Aug 07, 2017 09:53
--- NOTE | 2017-08-07 12:08 | HHI.HCPN ---
Reason for visit A. To assist with evaluation and management of symptoms including:Weakness, altered mental status b. To assist medical decision maker(s) with: better understanding of current medical conditions; weighing benefits/burdens of medical treatment options; making medical treatment decisions. Subjective/Interval History Palliative care follow-up for further clarification of goals of care, and evaluation of symptoms of weakness, edema and altered mental status. Patient seen in medical ICU, remains endotracheally intubated on mechanical ventilation. Currently on propofol drip at 10 mcg/kg/min, Levophed at 10 mcg/ min for hemodynamic support. She remains on tube feeding at 20 mL/h. Any changes on her any spontaneous breathing. She is able to nod opening eyes to verbal and gentle tactile stimuli, And shake her head, however her responses are not consistently reproducible. She is unable to provide an accurate review of symptoms. She is grimacing and coughs against ventilator. FiO2 remains at 35%, PEEP 5, RR 12. Bicarbonate drip has been discontinued, fentanyl is on hold. She has gross anasarca and 3+ pitting edema in all extremities. She is seen to have very weak movement in all extremities to command. Continue attempts at contacting family members. As per prior palliative care consultation in November 2016, patient is single. She reports that she had a son but "was given away" when he was a baby. Both parents are , one brother Felice at unknown age secondary to acute SD. One remaining brother by the name of Davi Sood who she has not seen in over 12 years. [facility] reports in November 2016 with no active contact information for brother. Patient's long-term facility provided additional telephone numbers. They reported that they have not been able to locate any family member either. Repeat [facility] report done 08/06 requested showing contact information for Davi Sood Sahron Barrie. Again attempted to contact them and voicemails left as indicated below. . Family/friend interactions [facility] report obtained for possible updated contact information returning the following numbers. Attempts to contact family documented below, pending callback. Brother: Davi Sood (verified). incorrect number) (. (unable to reach), Continuous busy signal. number not in service. Possible nephew:Davi Sood Jr. (verified), , unable to leave message. Possible family member: Sharon Sood (voicemail left). 15: 33 I was contacted by the patient's brother, Davi, who verifies that his accurate phone number is . Clinical update provided to include ventilator status, weakness, laboratory values, clinical decline over the last years where they have not been in contact. He endorses that his sister would not wish aggressive measures and has made her a DO NOT RESUSCITATE status. This was conveyed to Dr. Fatuma Cotto who contacted him for consent to change a central line due to her elevated white blood cell count. He has declined any further invasive procedures, stating that his sister would not want that. We will continue to follow-up with family to ascertain goals given the evolving clinical picture. . Advance Directives Living Will: Never completed Health Care Surrogate: Never completed Durable Power of Metal Roofing Mechanic: Never completed Advance Directive Specifics Documented care wishes: No living will available. . Objective Vital Signs Date Time Temp Pulse Resp B/P (MAP) Pulse Ox O2 Delivery O2 Flow Rate FiO2 08/07/17 07:33 98 35 08/07/17 06:00 80 08/07/17 05:49 69 109/44 08/07/17 04:14 97 35 08/07/17 04:00 98.6 79 12 100/58 (72) 96 106/45 (65) 08/07/17 04:00 35 08/07/17 04:00 79 08/07/17 02:00 80 08/07/17 00:00 88 08/07/17 00:00 98.8 88 12 102/51 (68) 97 112/46 (68) 08/07/17 00:00 35 08/06/17 23:53 96 119/56 08/06/17 23:25 97 35 08/06/17 22:00 75 08/06/17 20:00 85 08/06/17 20:00 98.9 85 12 89/51 (64) 98 103/44 (63) 08/06/17 20:00 35 08/06/17 19:27 97 35 08/06/17 18:55 75 118/48 08/06/17 18:00 72 12 97/51 (66) 95 117/52 (73) 08/06/17 18:00 72 08/06/17 17:30 88 83/48 08/06/17 17:12 100 100 08/06/17 17:09 83 13 98/53 (68) 94 125/53 (77) 08/06/17 17:06 86 12 83/48 (60) 94 111/49 (69) 08/06/17 17:04 89 12 83/46 (58) 91 93/38 (56) 08/06/17 17:01 91 14 90/51 (64) 97 08/06/17 17:00 90 20 107/53 (71) 100 08/06/17 16:25 100 12 93/63 (73) 100 142/59 (86) 08/06/17 16:15 82 87/50 08/06/17 16:09 97 35 08/06/17 16:00 99.4 81 12 87/50 (62) 97 112/51 (71) 08/06/17 16:00 35 08/06/17 16:00 81 08/06/17 15:00 92 19 138/61 (86) 100 149/62 (91) 08/06/17 14:00 75 12 99/52 (68) 99 118/53 (74) 08/06/17 14:00 74 08/06/17 13:00 71 12 96/54 (68) 97 104/49 (67) 08/06/17 12:10 97 35 08/06/17 12:00 35 08/06/17 12:00 77 08/06/17 12:00 99.5 77 12 91/52 (65) 97 101/48 (65) Intake & Output 08/07/17 08/07/17 06:59 18:59 Intake Total 1105 ml Output Total 300 ml Balance 805 ml IV Total 815 ml Tube Feeding 190 ml Other 100 ml Output Urine Total 300 ml # Bowel Movements 0 Physical Exam CONSTITUTIONAL/GENERAL: This is an obese patient, intubated, lightly sedated, in no apparent distress. TUBES/LINES/DRAINS: ETT, OGT, Mary, left PIV 2, right IJ central line. Bilateral soft wrist restraints. SKIN: No jaundice, rashes, or lesions. Ecchymoses on upper extremities. No wounds seen anteriorly. Skin temperature appropriate. Not diaphoretic. HEAD: Atraumatic. Normocephalic. EYES: Pupils equal and round and reactive. No scleral icterus. No injection or drainage ENT: Nose without bleeding or purulent drainage. NECK: Trachea midline. Supple. CARDIOVASCULAR: Regular rate and rhythm without murmurs, gallops, or rubs. No JVD. Peripheral pulses symmetric. RESPIRATORY/CHEST: Symmetric, unlabored respirations. Diminished breath sounds with scattered wheezes. GASTROINTESTINAL: Abdomen obese, distended. Limited abdominal exam due to body habitus. Bowel sounds present. GENITOURINARY: Without palpable bladder distension. Mary catheter in place. MUSCULOSKELETAL: Extremities without clubbing or cyanosis. Generalized edema right greater than left. No mottling or clubbing. NEUROLOGICAL: Arousable, intubated, lightly sedated, not following simple commands. PSYCHIATRIC: Sedated, appears calm. . Diagnostic Tests Laboratory Laboratory Tests Test 08/04/17 17:15 08/04/17 23:15 08/05/17 05:10 08/05/17 08:00 White Blood Count 22.0 TH/MM3 (4.0-11.0) 23.7 TH/MM3 (4.0-11.0) Red Blood Count 3.51 MIL/MM3 (4.00-5.30) 3.49 MIL/MM3 (4.00-5.30) Hemoglobin 10.4 GM/DL (11.6-15.3) 10.2 GM/DL (11.6-15.3) 10.0 GM/DL (11.6-15.3) Hematocrit 30.2 % (35.0-46.0) 30.5 % (35.0-46.0) 30.2 % (35.0-46.0) Mean Corpuscular Volume 86.2 FL (80.0-100.0) 86.5 FL (80.0-100.0) Mean Corpuscular Hemoglobin 29.7 PG (27.0-34.0) 28.8 PG (27.0-34.0) Mean Corpuscular Hemoglobin Concent 34.5 % (32.0-36.0) 33.2 % (32.0-36.0) Red Cell Distribution Width 13.8 % (11.6-17.2) 13.9 % (11.6-17.2) Platelet Count 242 TH/MM3 (150-450) 240 TH/MM3 (150-450) Mean Platelet Volume 8.7 FL (7.0-11.0) 8.9 FL (7.0-11.0) Prothrombin Time 16.1 SEC (9.8-11.6) Prothromb Time International Ratio 1.6 RATIO Activated Partial Thromboplast Time 33.5 SEC (24.3-30.1) 52.8 SEC (24.3-30.1) 157.1 SEC (24.3-30.1) 58.8 SEC (24.3-30.1) Neutrophils (%) (Auto) 89.5 % (16.0-70.0) Lymphocytes (%) (Auto) 4.8 % (9.0-44.0) Monocytes (%) (Auto) 5.0 % (0.0-8.0) Eosinophils (%) (Auto) 0.6 % (0.0-4.0) Basophils (%) (Auto) 0.1 % (0.0-2.0) Neutrophils # (Auto) 21.2 TH/MM3 (1.8-7.7) Lymphocytes # (Auto) 1.1 TH/MM3 (1.0-4.8) Monocytes # (Auto) 1.2 TH/MM3 (0-0.9) Eosinophils # (Auto) 0.1 TH/MM3 (0-0.4) Basophils # (Auto) 0.0 TH/MM3 (0-0.2) CBC Comment DIFF FINAL Differential Comment Blood Urea Nitrogen 45 MG/DL (7-18) Creatinine 1.55 MG/DL (0.50-1.00) Random Glucose 140 MG/DL (74-106) Total Protein 5.1 GM/DL (6.4-8.2) Albumin 1.3 GM/DL (3.4-5.0) Calcium Level 7.0 MG/DL (8.5-10.1) Phosphorus Level 2.6 MG/DL (2.5-4.9) Alkaline Phosphatase 83 U/L (45-117) Aspartate Amino Transf (AST/SGOT) 28 U/L (15-37) Alanine Aminotransferase (ALT/SGPT) 73 U/L (10-53) Total Bilirubin 0.7 MG/DL (0.2-1.0) Sodium Level 143 MEQ/L (136-145) Potassium Level 3.3 MEQ/L (3.5-5.1) Chloride Level 106 MEQ/L (98-107) Carbon Dioxide Level 24.4 MEQ/L (21.0-32.0) Anion Gap 13 MEQ/L (5-15) Estimat Glomerular Filtration Rate 32 ML/MIN (>89) Protein Corrected Calcium 8.1 MG/DL (8.5-10.1) Lipase 119 U/L (73-393) Random Vancomycin Level 9.7 COMMENT Test 08/05/17 14:59 08/05/17 20:15 08/05/17 22:00 08/06/17 04:45 Activated Partial Thromboplast Time 76.6 SEC (24.3-30.1) 49.7 SEC (24.3-30.1) 54.1 SEC (24.3-30.1) Random Cortisol 20.4 MCG/DL White Blood Count 29.7 TH/MM3 (4.0-11.0) Red Blood Count 3.37 MIL/MM3 (4.00-5.30) Hemoglobin 9.9 GM/DL (11.6-15.3) Hematocrit 29.5 % (35.0-46.0) Mean Corpuscular Volume 87.5 FL (80.0-100.0) Mean Corpuscular Hemoglobin 29.2 PG (27.0-34.0) Mean Corpuscular Hemoglobin Concent 33.4 % (32.0-36.0) Red Cell Distribution Width 14.0 % (11.6-17.2) Platelet Count 248 TH/MM3 (150-450) Mean Platelet Volume 9.0 FL (7.0-11.0) Neutrophils (%) (Auto) 90.3 % (16.0-70.0) Lymphocytes (%) (Auto) 4.8 % (9.0-44.0) Monocytes (%) (Auto) 4.2 % (0.0-8.0) Eosinophils (%) (Auto) 0.6 % (0.0-4.0) Basophils (%) (Auto) 0.1 % (0.0-2.0) Neutrophils # (Auto) 26.8 TH/MM3 (1.8-7.7) Lymphocytes # (Auto) 1.4 TH/MM3 (1.0-4.8) Monocytes # (Auto) 1.2 TH/MM3 (0-0.9) Eosinophils # (Auto) 0.2 TH/MM3 (0-0.4) Basophils # (Auto) 0.0 TH/MM3 (0-0.2) CBC Comment DIFF FINAL Differential Comment Blood Urea Nitrogen 43 MG/DL (7-18) Creatinine 1.29 MG/DL (0.50-1.00) Random Glucose 169 MG/DL (74-106) Total Protein 5.1 GM/DL (6.4-8.2) Albumin 1.3 GM/DL (3.4-5.0) Calcium Level 7.8 MG/DL (8.5-10.1) Alkaline Phosphatase 76 U/L (45-117) Aspartate Amino Transf (AST/SGOT) 16 U/L (15-37) Alanine Aminotransferase (ALT/SGPT) 51 U/L (10-53) Total Bilirubin 0.6 MG/DL (0.2-1.0) Sodium Level 142 MEQ/L (136-145) Potassium Level 3.6 MEQ/L (3.5-5.1) Chloride Level 106 MEQ/L (98-107) Carbon Dioxide Level 23.8 MEQ/L (21.0-32.0) Anion Gap 12 MEQ/L (5-15) Estimat Glomerular Filtration Rate 40 ML/MIN (>89) Lipase 104 U/L (73-393) Random Vancomycin Level 18.4 COMMENT Test 08/06/17 15:43 08/07/17 05:29 Activated Partial Thromboplast Time 43.4 SEC (24.3-30.1) White Blood Count 33.9 TH/MM3 (4.0-11.0) Red Blood Count 3.17 MIL/MM3 (4.00-5.30) Hemoglobin 9.2 GM/DL (11.6-15.3) Hematocrit 28.0 % (35.0-46.0) Mean Corpuscular Volume 88.2 FL (80.0-100.0) Mean Corpuscular Hemoglobin 29.1 PG (27.0-34.0) Mean Corpuscular Hemoglobin Concent 33.0 % (32.0-36.0) Red Cell Distribution Width 13.8 % (11.6-17.2) Platelet Count 264 TH/MM3 (150-450) Mean Platelet Volume 9.0 FL (7.0-11.0) Blood Urea Nitrogen 42 MG/DL (7-18) Creatinine 1.18 MG/DL (0.50-1.00) Random Glucose 167 MG/DL (74-106) Calcium Level 7.6 MG/DL (8.5-10.1) Magnesium Level 1.6 MG/DL (1.5-2.5) Sodium Level 141 MEQ/L (136-145) Potassium Level 3.2 MEQ/L (3.5-5.1) Chloride Level 104 MEQ/L (98-107) Carbon Dioxide Level 24.2 MEQ/L (21.0-32.0) Anion Gap 13 MEQ/L (5-15) Estimat Glomerular Filtration Rate 44 ML/MIN (>89) Total Creatine Kinase 30 U/L (26-192) Result Diagram: 08/07/1729 08/07/17528 Imaging Last Impressions Head CT 08/06/17 Signed Impressions: CONCLUSION: 1. 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 No evidence of hemorrhage or acute m ass effect. Diffuse atrophy. Abdomen X-Ray 08/05/17 Signed Impressions: CONCLUSION: OG tube tip in proximal stomach. Mild basilar airspace disease with small left effusion. Lower Extremity Ultrasound 08/03/17 Signed Impressions: CONCLUSION: 1. Extensive DVT of the right lower extremity. 2. No venous thrombosis of the left lower extremity. Hepatobiliary Scan Nuclear Medicine 08/03/17 Signed Impressions: CONCLUSION: 1. No evidence of cystic duct or distal common bile duct obstruction. 2. Normal gallbladder ejection fraction. Chest X-Ray 08/03/17 Signed Impressions: CONCLUSION: The lungs are significantly hypoinflated but better aerated as compared to the prior exam with interval intubation. Stable right-sided central line. Nasogastr ic tubing with the proximal port below the level the diaphragm. Cholangiopancreatography MRI 08/02/17 Signed Impressions: CONCLUSION: 1. Gallstones with at least one stone in the common duct 2. Pancreas poorly visualized because of motion. 3. Fluid present in the lesser sac consistent with pancreatitis. Head Magnetic Resonance Angiography 08/01/17 Signed Impressions: CONCLUSION: 1. Negative MRA Cow ([place] of [place]) non contrast. Carotid Artery Ultrasound 08/01/17 Signed Impressions: CONCLUSION: 1. Right Internal Carotid Artery: Findings indicate <50% stenosis. 2. Left Internal Carotid Artery: Findings indicate <50% stenosis. Brain MRI 08/01/17 Signed Impressions: CONCLUSION: 1. Questionable tiny subacute lacunar infarcts posterior periventricular white matter. Moderate to severe chronic ischemic changes in the periventricular whi te matter. Remote left parietal lobe infarct. Abdomen/Pelvis CT 08/01/17 Signed Impressions: CONCLUSION: 1. The pancreas is abnormal with enlargement and peripancreatic inflammation a nd edema characteristic of acute pancreatitis. There is a small volume of free fluid in the abdomen and pelvis. 2. Cholelithiasis without pancreatic duct dilatation. 3. There is mild wall thickening of the inferior rectum with associated presac ral edema. 4. Small bilateral pleural effusions with associated compressive atelectasis. 5. There is a compression deformity of uncertain chronicity involving L3 and c ompression deformity with sclerosis involving T9. Procedures 08/02/2017: Right IJ central line placement 08/03/2017: Endotracheal intubation . Assessment and Plan Disease Oriented Problem List: (1) GI bleed (2) Metabolic acidosis (3) Altered mental status (4) Sepsis (5) Acute renal failure (6) Adjustment disorder with depressed mood (7) Hypertension Symptom Scale: (1) Weakness 0-10 Scale: Unable to quantify (Right flaccidity on admission, improving) (2) Altered mental status 0-10 Scale: Unable to quantify (Baseline dementia, intubated, sedated.) Pertinent Non-Medical Issues Psychosocial:Patient originally from [place]. Moved to [place] over 20 years ago. 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 Patient is single. She reports that she had a son but "was given away". Both parents are , one brother Felice at known age secondary to acute SD. One remaining brother by the name of Davi Sood who she has not seen in over 12 years. Spiritual: No yarsani affiliation. Legal: No advanced directive paperwork has been completed. Ethical issues impacting care: Patient has a history of schizophrenia/psycho affective disorder with questionable dementia and at this time decision-making capacity cannot be determined. No family is available to serve as decision- maker at this time. Continuing to try to make contact with her brother. . Important Contacts Brother: Davi Sood (verified) (incorrect number). (unable to reach), Continuous busy signal. [phone] number not in service. Possible nephew:Davi Sood Jr. (verified), , unable to leave message. Possible family member: Sharon Sood (voicemail left). . Prognosis Her prognosis is guarded. She is admitted with severe dehydration, sepsis, pancreatitis, metabolic acidosis, acute kidney failure and GI bleed, then suffered ventilatory dependent respiratory failure. She is listed as an FULL CODE, by default, as no family decision-maker can be reached to discuss goals of care. At her previous admission November 2016 she had specified that she wished to be a no code, DNR/DNI. Community DNR was introduced at that time however the patient declined completion. Without the signed DNR, she reverted to a FULL CODE when returned to the facility. She has multiple system compromise and is at increased risk of continued decline and complications. . Code Status: Full Code (By default. Patient previously a DNR/DNI at 11/18 admission, refused to sign community DNR.) Plan PLAN: Legal decision maker: At this time the patient's capacity cannot be determined as she is intubated and sedated. Multiple attempts have been made to reach her brother, a possible nephew and one other family member of unknown relation, however no phone contact has been able to be established, either at this visit or at the 11/2016 admission. At this time, no legal decision maker is available. If no family member can be contacted or is willing to participate, patient may need social work advantage consultation. Goals: TBD, pending identification of healthcare proxy. Updated [facility] report pending. CODE STATUS: FULL CODE by default. At previous admission 11/2016, patient stated she wished to be a DNR/DNI and did not wish any invasive interventions or procedures. Community DNR was introduced at that time and patient declined to complete, causing reversion to a full CODE STATUS upon discharge. SYMPTOMS: * Weakness: Multifactorial, related to sepsis, dehydration, hypotension, acidosis, pancreatitis, general and fpc debility. At last evaluation prior to intubation, strength was 3/5 consistent with her prior admission in November 2016. She is undergoing rehydration and antibiotic therapy. Physical therapy is following. She has been evaluated by Dr. Campoverde for rehab. She was wheelchair bound upon admission and is likely sustaining increasing weakness due to prolonged bedbound status. * Altered mental status: Multifactorial related to sepsis, hypotension, dehydration, acidosis, baseline psycho affective disorder/schizophrenia. She is currently intubated and sedated and a thorough assessment cannot be made at this time. She is following some commands at this time and can hopefully be medically extubated to further determine capacity and goals of care. * Edema: She has gross anasarca with significant pitting edema in all extremities. Hands are extremely swollen likely secondary to wrist restraints and dependent positioning. Her albumin is 1.3 and total protein 5.1. Her blood pressure is requiring significant support with Levophed, complicating diuresis. Her renal indices are improving. Palliative care will continue to follow the patient during hospital course as condition evolves, to assist patient/decision-maker with understanding of their medical conditions, weighing benefits/burdens of treatment options, for clarification of goals of treatment. Additionally will assist with any symptoms of palliative concern. . Attestation To help prompt me to consider important information that might be impacting today's encounter and assessment, information from prior notes written by myself or my colleagues may have been "brought forward" into today's note. My signature on this note, however, is an attestation that I personally performed the exam, history, and/or decision-making noted today, and, unless otherwise indicated, the interactions with patient, family, and staff as well as the review of records all occurred today. I also attest that the listed assessment and stated plan reflect my best clinical judgment today based on the combination of historical information, prior notes, and today's exam/ interactions. When time spent is documented, it refers only to time spent today by the signer, or if indicated, combined time spent today by collaborating physician/nurse practitioner. . Abigail Quigley Aug 07, 2017 12:08 pm
[2017-08-07 12:30] LABS: BILIRUBIN, URINE NEG (NEG); BLOOD, URINE MOD (NEG); GLUCOSE,URINE 70 mg/dL (NEG); KETONE, URINE NEG (NEG); MUCUS URINE FEW /lpf (OCC); NITRITE,URINE NEG (NEG); PH, URINE 5.5 (5.0-8.5); URINE COLOR YELLOW (YELLW/STRAW); URINE LEUKOCYTE ESTERASE SMALL (NEG)
[2017-08-07] MEDS: PANTOPRAZOLE SODIUM 40 MG VIAL IV PUSH SCH (12:32)
[2017-08-07 12:46] LABS: BACTERIA, URINE RARE /hpf
[2017-08-07 12:55] LABS: ALBUMIN 1.3 GM/DL (3.4-5.0); DIRECT BILIRUBIN ADULT 0.2 MG/DL (0.0-0.2)
[2017-08-07 12:57] LABS: INDIRECT BILIRUBIN 0.1 MG/DL (0.0-0.8); TOTAL BILIRUBIN ADULT 0.3 MG/DL (0.2-1.0); TOTAL PROTEIN 5.2 GM/DL (6.4-8.2)
[2017-08-07] MEDS: VANCOMYCIN INJ 1,500 MG in SODIUM CHLORID 0.9% 500 ML INJ 500 ML IV SCH (14:34)
--- NOTE | 2017-08-07 14:35 | MG ---
cc: Patricio Michelle MD, PhD TEST NUMBER: [id number]. DESCRIPTION: Background rhythm reveals an alpha rhythm, frequency is roughly 7-8 Hz. Amplitude is 10-20 mV. There is some slowing in the theta range as well at 6 Hz. There are no epileptiform features. No lateralizing features are identified. Photic results in a mild driving response. INTERPRETATION: Mildly abnormal study consistent with a mild encephalopathy. Patricio Michelle MD, PhD ALEXEI/SB , 02:24 PM , 02:34 PM
[2017-08-07] MEDS: POTASSIUM CHLOR 40 MEQ PREMIX 100 ML IV PRN ×2 (16:35→18:40)
--- NOTE | 2017-08-07 19:34 | HHI.PR ---
Review/Management Diagnosis left hemisphere cva. exam stable Diagnosis/Plan: Subjective Subjective Comments No acute events reported Active Medications Current Medications Medications (Trade) Dose Ordered Sig/Nadia Route Start Time Stop Time Status Last Admin (NovoLOG SUPPLEMENTAL SCALE) 1 ACHS SQ 08/01/17 21:00 08/07/17 16:19 (D50w (Vial) Inj) 50 ml UNSCH PRN IV PUSH 08/01/17 20:00 (Glucagon Inj) 1 mg UNSCH PRN OTHER 08/01/17 20:00 (Lopid) 600 mg BIDAC PO 08/02/17 07:00 08/07/17 16:18 (risperDAL) 0.5 mg HS PO 08/01/17 22:00 Future Hold (Zoloft) 100 mg DAILY PO 08/02/17 09:00 Future Hold 08/06/17 08:10 (risperDAL) 2 mg HS PO 08/01/17 22:00 Future Hold (NS Flush) 2 ml UNSCH PRN IV FLUSH 08/01/17 21:15 (NS Flush) 2 ml BID IV FLUSH 08/02/17 09:00 08/07/17 08:54 (Tylenol) 650 mg Q6H PRN PO 08/01/17 21:15 08/03/17 22:58 (Dilaudid Pf Inj) 1 mg Q4H PRN IV PUSH 08/01/17 21:15 08/02/17 04:11 (Zofran Inj) 4 mg Q6H PRN IV PUSH 08/01/17 21:15 (Restoril) 15 mg HS PRN PO 08/01/17 21:15 Future Hold ([facility]) 1 Q361D XX 08/01/17 21:15 (Chlorhexidine 2% Cloth) Taper DAILY@04 TOP 08/02/17 04:00 07/29/18 03:59 08/07/17 04:00 (Chlorhexidine 2% Cloth) 3 pack UNSCH PRN TOP 08/01/17 21:15 (Guillermina-Colace) 1 tab BID PO 08/02/17 09:00 08/07/17 08:54 (Milk Of Magnesia Liq) 30 ml Q12H PRN PO 08/01/17 21:15 (Senokot) 17.2 mg Q12H PRN PO 08/01/17 21:15 (Dulcolax Supp) 10 mg DAILY PRN RECTAL 08/01/17 21:15 (Lactulose Liq) 30 ml DAILY PRN PO 08/01/17 21:15 08/07/17 08:54 Pharmacy Profile Note 0 ml @ 0 mls/hr UNSCH OTHER 08/01/17 21:15 Aztreonam 2000 mg/ Sodium Chloride 100 ml @ 200 mls/hr Q8H IV 08/01/17 22:00 08/07/17 14:34 Metronidazole 100 ml @ 100 mls/hr Q8H IV 08/01/17 22:00 08/07/17 14:35 (Protonix Inj) 40 mg Q12H IV PUSH 08/02/17 00:00 08/07/17 12:32 Norepinephrine Bitartrate 250 ml @ 7.5 mls/hr TITRATE PRN IV 08/02/17 19:45 08/07/17 12:39 Fentanyl Citrate 250 ml @ 5 mls/hr TITRATE PRN IV 08/03/17 10:00 Future Hold 08/06/17 09:35 (Peridex 0.12% Liq) 15 ml BID@08,20 MT 08/03/17 20:00 08/07/17 08:54 (Duoneb Neb) 1 ampule Q2HR NEB PRN NEB 08/03/17 10:45 08/06/17 23:19 Propofol 100 ml @ 2.403 mls/ hr TITRATE PRN IV 08/03/17 16:15 08/07/17 05:49 Heparin Sodium/ Dextrose 250 ml @ 15 mls/hr TITRATE PRN IV 08/04/17 16:45 Future Hold 08/05/17 18:46 Potassium Chloride 100 ml @ 50 mls/hr Q2H PRN IV 08/05/17 17:45 08/07/17 18:40 Potassium Chloride 100 ml @ 50 mls/hr Q2H PRN IV 08/05/17 17:45 (K-Lyte Cl Eff) 50 meq UNSCH PRN PO 08/05/17 17:45 Potassium Chloride 100 ml @ 25 mls/hr UNSCH PRN IV 08/05/17 17:45 Potassium Chloride 100 ml @ 50 mls/hr Q2H PRN IV 08/05/17 17:45 08/05/17 20:34 Magnesium Sulfate 4 gm/Sodium Chloride 100 ml @ 50 mls/hr UNSCH PRN IV 08/05/17 17:45 (Mag-Ox) 800 mg UNSCH PRN PO 08/05/17 17:45 Magnesium Sulfate 2 gm/Sodium Chloride 100 ml @ 50 mls/hr UNSCH PRN IV 08/05/17 17:45 (K-Phos) 2,000 mg Q4H PRN PO 08/05/17 17:45 Sodium Phosphate 30 mmol/Sodium Chloride 250 ml @ 42 mls/hr UNSCH PRN IV 08/05/17 17:45 (K-Phos) 2,000 mg UNSCH PRN PO/TUBE 08/05/17 17:45 Potassium Phosphate 30 mmol/ Sodium Chloride 260 ml @ 42 mls/hr UNSCH PRN IV 08/05/17 17:45 Vancomycin HCl 1500 mg/Sodium Chloride 515 ml @ 250 mls/hr Q24H IV 08/06/17 14:00 08/07/17 14:34 ([facility] Ordered Lab Info) SPECIFIC LAB TO BE DRAWN:VANCO TROUGH DATE TO BE DRMelisa.. ONCE ONCE .XX 08/08/17 13:45 08/08/17 13:46 (Versed Inj) 2 mg Q15M PRN IV PUSH 08/06/17 15:15 Allergies Allergies Coded Allergies aspirin (Unverified Allergy, Severe, 10/16/16) penicillin G (Unverified Allergy, Severe, 10/16/16) Exam I&O / VS 08/07/17 08/07/17 08/08/17 15:00 23:00 07:00 Intake Total 341 ml Output Total 675 ml Balance -334 ml Tube Feeding 221 ml Other 120 ml Output Urine Total 675 ml # Bowel Movements 2 Vital Signs Date Time Temp Pulse Resp B/P (MAP) Pulse Ox O2 Delivery O2 Flow Rate FiO2 08/07/17 18:00 67 08/07/17 16:00 35 08/07/17 16:00 98.6 87 12 124/56 (78) 97 122/45 (70) 08/07/17 16:00 87 08/07/17 15:16 96 35 08/07/17 14:00 78 08/07/17 13:25 100 35 08/07/17 13:24 35 08/07/17 12:39 73 125/49 08/07/17 12:00 66 08/07/17 12:00 35 08/07/17 12:00 98.6 66 12 132/60 (84) 99 132/54 (80) 08/07/17 10:00 86 08/07/17 08:00 35 08/07/17 08:00 72 08/07/17 08:00 98.7 72 12 127/60 (82) 98 133/55 (81) 08/07/17 07:33 98 35 08/07/17 06:00 80 08/07/17 05:49 69 109/44 08/07/17 04:14 97 35 08/07/17 04:00 98.6 79 12 100/58 (72) 96 106/45 (65) 08/07/17 04:00 35 08/07/17 04:00 79 08/07/17 02:00 80 08/07/17 00:00 88 08/07/17 00:00 98.8 88 12 102/51 (68) 97 112/46 (68) 08/07/17 00:00 35 08/06/17 23:53 96 119/56 08/06/17 23:25 97 35 08/06/17 22:00 75 08/06/17 20:00 85 08/06/17 20:00 98.9 85 12 89/51 (64) 98 103/44 (63) 08/06/17 20:00 35 Respiratory: BS equal, Coarse breath sounds Cardiology: Normal rate, Regular Rhythm Musculoskeletal: ROM (Decreased range of motion at the ankles bilaterally), Swelling (2+ upper and lower extremity edema) Exam Comments Intubated, arouses to voice and follows commands intermittently CN intact MOTOR--generalized weak Objective Micro and Labs Laboratory Tests Test 08/07/17 05:29 08/07/17 09:55 08/07/17 11:36 White Blood Count 33.9 Red Blood Count 3.17 Hemoglobin 9.2 Hematocrit 28.0 Mean Corpuscular Volume 88.2 Mean Corpuscular Hemoglobin 29.1 Mean Corpuscular Hemoglobin Concent 33.0 Red Cell Distribution Width 13.8 Platelet Count 264 Mean Platelet Volume 9.0 Blood Urea Nitrogen 42 Creatinine 1.18 Random Glucose 167 Calcium Level 7.6 Magnesium Level 1.6 Sodium Level 141 Potassium Level 3.2 Chloride Level 104 Carbon Dioxide Level 24.2 Anion Gap 13 Estimat Glomerular Filtration Rate 44 Total Creatine Kinase 30 Urine Color YELLOW Urine Turbidity HAZY Urine pH 5.5 Urine Specific [place] 1.020 Urine Protein TRACE Urine Glucose (UA) 70 Urine Ketones NEG Urine Occult Blood MOD Urine Nitrite NEG Urine Bilirubin NEG Urine Urobilinogen LESS THAN 2.0 Urine Leukocyte Esterase SMALL Urine RBC 28 Urine WBC 8 Urine Bacteria RARE Urine Mucus FEW Microscopic Urinalysis Comment CATH-CULTURE IND Total Bilirubin 0.3 Direct Bilirubin 0.2 Indirect Bilirubin 0.1 Aspartate Amino Transf (AST/SGOT) 16 Alanine Aminotransferase (ALT/SGPT) 35 Alkaline Phosphatase 95 Total Protein 5.2 Albumin 1.3 Lipase 164 Date/Time Source Procedure Growth Status 08/01/17 22:05 Blood Peripheral Aerobic Blood Culture - Final NO GROWTH IN 5 DAYS Complete 08/01/17 22:05 Blood Peripheral Anaerobic Blood Culture - Final NO GROWTH IN 5 DAYS Complete 08/07/17 09:55 Urine Catheterized Urine Urine Culture Pending Received Patricio Michelle MD PhD Aug 07, 2017 19:34
[2017-08-07] MEDS: RESP: ALBUTEROL 2.5 MG/IPRATROPIUM 0.5 MG NEB (PRN) NEB (19:42)
[2017-08-07] MEDS: ZOLPIDEM TARTRATE 5 MG TAB PO SCH (21:00)
[2017-08-07] MEDS: MICAFUNGIN INJ 100 MG in SODIUM CHLORIDE 0.9% INJ 100 ML IV SCH (21:39)
[2017-08-08] VITALS (18 sets, daily range): BP systolic 108–146; BP diastolic 49–71; PULSE 69–104; RESP 12–15; TEMP 98.6–99.2; O2SAT 98–100
[2017-08-08] MEDS: PANTOPRAZOLE SODIUM 40 MG VIAL IV PUSH SCH ×3 (00:23→23:35)
[2017-08-08] MEDS: RESP: ALBUTEROL 2.5 MG/IPRATROPIUM 0.5 MG NEB (PRN) NEB ×3 (00:43→20:25)
[2017-08-08] MEDS: CHLORHEXIDINE GLUCONATE 2 % 1 PACK (2 CLOTHS) TOP SCH (04:00)
[2017-08-08] MEDS: GEMFIBROZIL 600 MG TAB PO SCH ×2 (05:41→16:22)
[2017-08-08] MEDS: NOREPINEPHRINE 4 MG/D5W 250 ML IV PRN ×2 (05:42→08:26)
[2017-08-08] MEDS: AZTREONAM INJ 2,000 MG in SODIUM CHLORIDE 0.9% INJ 100 ML IV SCH ×3 (05:42→22:18)
[2017-08-08] MEDS: metroNIDAZOLE 500 MG INJ 100 ML IV SCH ×3 (05:42→21:12)
[2017-08-08] MEDS: DOCUSATE SODIUM 50 MG/SENNA 8.6 MG TAB PO SCH ×2 (09:00→19:59)
[2017-08-08] MEDS: PROPOFOL 1000 MG/100 ML INJ 100 ML IV PRN ×2 (09:54→20:00)
[2017-08-08] MEDS: SODIUM CHLORIDE 0.9% FLUSH 10 ML FLUSH IV FLUSH SCH ×2 (09:54→19:59)
[2017-08-08] MEDS: CHLORHEXIDINE 0.12% (ORAL KIT) 15 ML CUP MT SCH ×2 (09:55→20:01)
[2017-08-08] MEDS: INSULIN ASPART SUPPLEMENTAL SCALE SQ SCH ×4 (09:57→20:28)
--- NOTE | 2017-08-08 12:53 | HHI.HCPN ---
Reason for visit A. To assist with evaluation and management of symptoms including:Weakness, edema, altered mental status b. To assist medical decision maker(s) with: better understanding of current medical conditions; weighing benefits/burdens of medical treatment options; making medical treatment decisions. Subjective/Interval History Palliative care follow-up for further clarification of goals of care, and evaluation of symptoms of weakness, edema and altered mental status. Patient seen in medical ICU, remains endotracheally intubated on mechanical ventilation. Currently on propofol drip at 10 mcg/kg/min, Levophed at 5 mcg/ min for hemodynamic support. She remains on tube feeding at 20 mL/h. She is minimally breathing over the vent. She is not as responsive to noxious stimuli today. She does resist eyelid retraction, but does not spontaneously open her eyes with stimulation. FiO2 remains at 35%, PEEP 5, RR 12. She has gross anasarca and 3+ pitting edema in all extremities. She is not moving to command at this evaluation. WBC count is elevated at 33.9, up from 29.7, and blood cultures have been redrawn. Per Dr. Cotto discussion with patient's brother on 08/07, he declined to consent for replacement of the central lines and declined to consent for placement of any new lines or other invasive procedures. She has remained afebrile overnight. Sputum culture drawn 08/07 shows rare white blood cells, mucus with organisms seen. . Advance Directives Living Will: Never completed Health Care Surrogate: Never completed Durable Power of Brimmer Blocker: Never completed Advance Directive Specifics Documented care wishes: No living will available. . Significant change in goals: Per my discussion with her brother on 08/07, he states that she would not want aggressive interventions and agreed to make her a DO NOT RESUSCITATE, do not reintubate status. He has declined any invasive procedures to include central line and arterial line replacement. . Objective Vital Signs Date Time Temp Pulse Resp B/P (MAP) Pulse Ox O2 Delivery O2 Flow Rate FiO2 08/08/17 12:03 100 35 08/08/17 08:26 74 131/52 08/08/17 07:42 99 35 08/08/17 06:00 69 08/08/17 05:42 67 112/44 08/08/17 04:21 98 35 08/08/17 04:00 77 08/08/17 04:00 35 08/08/17 04:00 98.7 77 12 127/60 (82) 98 130/53 (78) 08/08/17 02:00 71 08/08/17 00:20 99 35 08/08/17 00:00 98.6 74 12 108/53 (71) 99 126/49 (74) 08/08/17 00:00 35 08/08/17 00:00 74 08/07/17 23:00 87 141/53 08/07/17 22:00 79 08/07/17 20:22 75 125/47 08/07/17 20:00 35 08/07/17 20:00 98.8 08/07/17 20:00 79 08/07/17 20:00 98.8 79 12 112/59 (76) 98 130/50 (76) 08/07/17 19:40 99 35 08/07/17 18:00 67 08/07/17 16:00 35 08/07/17 16:00 98.6 87 12 124/56 (78) 97 122/45 (70) 08/07/17 16:00 87 08/07/17 15:16 96 35 08/07/17 14:00 78 08/07/17 13:25 100 35 08/07/17 13:24 35 08/07/17 12:39 73 125/49 Intake & Output 08/08/17 08/08/17 07:00 19:00 Intake Total 814 ml Output Total 550 ml Balance 264 ml IV Total 400 ml Tube Feeding 314 ml Other 100 ml Output Urine Total 550 ml # Bowel Movements 1 Physical Exam CONSTITUTIONAL/GENERAL: This is an obese patient, intubated, lightly sedated, in no apparent distress. TUBES/LINES/DRAINS: ETT, OGT, Mary, left PIV 2, right IJ central line. Bilateral soft wrist restraints. SKIN: No jaundice, rashes, or lesions. Ecchymoses on upper extremities. No wounds seen anteriorly. Skin temperature appropriate. Not diaphoretic. HEAD: Atraumatic. Normocephalic. EYES: Pupils equal and round and reactive. Resists eyelid retraction. No scleral icterus. No injection or drainage ENT: Nose without bleeding or purulent drainage. NECK: Trachea midline. Supple. CARDIOVASCULAR: Regular rate and rhythm without murmurs, gallops, or rubs. No JVD. Peripheral pulses symmetric. RESPIRATORY/CHEST: Symmetric, unlabored respirations. Coarse breath sounds with scattered rhonchi. GASTROINTESTINAL: Abdomen obese, distended. Limited abdominal exam due to body habitus. Bowel sounds present. GENITOURINARY: Without palpable bladder distension. Mary catheter in place. MUSCULOSKELETAL: Extremities without clubbing or cyanosis. Generalized edema right greater than left. No mottling or clubbing. NEUROLOGICAL: Unarousable, intubated, lightly sedated, not following simple commands. PSYCHIATRIC: Sedated, appears calm. . Diagnostic Tests Laboratory Laboratory Tests Test 08/05/17 14:59 08/05/17 20:15 08/05/17 22:00 08/06/17 04:45 Activated Partial Thromboplast Time 76.6 SEC (24.3-30.1) 49.7 SEC (24.3-30.1) 54.1 SEC (24.3-30.1) Random Cortisol 20.4 MCG/DL White Blood Count 29.7 TH/MM3 (4.0-11.0) Red Blood Count 3.37 MIL/MM3 (4.00-5.30) Hemoglobin 9.9 GM/DL (11.6-15.3) Hematocrit 29.5 % (35.0-46.0) Mean Corpuscular Volume 87.5 FL (80.0-100.0) Mean Corpuscular Hemoglobin 29.2 PG (27.0-34.0) Mean Corpuscular Hemoglobin Concent 33.4 % (32.0-36.0) Red Cell Distribution Width 14.0 % (11.6-17.2) Platelet Count 248 TH/MM3 (150-450) Mean Platelet Volume 9.0 FL (7.0-11.0) Neutrophils (%) (Auto) 90.3 % (16.0-70.0) Lymphocytes (%) (Auto) 4.8 % (9.0-44.0) Monocytes (%) (Auto) 4.2 % (0.0-8.0) Eosinophils (%) (Auto) 0.6 % (0.0-4.0) Basophils (%) (Auto) 0.1 % (0.0-2.0) Neutrophils # (Auto) 26.8 TH/MM3 (1.8-7.7) Lymphocytes # (Auto) 1.4 TH/MM3 (1.0-4.8) Monocytes # (Auto) 1.2 TH/MM3 (0-0.9) Eosinophils # (Auto) 0.2 TH/MM3 (0-0.4) Basophils # (Auto) 0.0 TH/MM3 (0-0.2) CBC Comment DIFF FINAL Differential Comment Blood Urea Nitrogen 43 MG/DL (7-18) Creatinine 1.29 MG/DL (0.50-1.00) Random Glucose 169 MG/DL (74-106) Total Protein 5.1 GM/DL (6.4-8.2) Albumin 1.3 GM/DL (3.4-5.0) Calcium Level 7.8 MG/DL (8.5-10.1) Alkaline Phosphatase 76 U/L (45-117) Aspartate Amino Transf (AST/SGOT) 16 U/L (15-37) Alanine Aminotransferase (ALT/SGPT) 51 U/L (10-53) Total Bilirubin 0.6 MG/DL (0.2-1.0) Sodium Level 142 MEQ/L (136-145) Potassium Level 3.6 MEQ/L (3.5-5.1) Chloride Level 106 MEQ/L (98-107) Carbon Dioxide Level 23.8 MEQ/L (21.0-32.0) Anion Gap 12 MEQ/L (5-15) Estimat Glomerular Filtration Rate 40 ML/MIN (>89) Lipase 104 U/L (73-393) Random Vancomycin Level 18.4 COMMENT Test 08/06/17 15:43 08/07/17 05:29 08/07/17 09:55 08/07/17 11:36 Activated Partial Thromboplast Time 43.4 SEC (24.3-30.1) White Blood Count 33.9 TH/MM3 (4.0-11.0) Red Blood Count 3.17 MIL/MM3 (4.00-5.30) Hemoglobin 9.2 GM/DL (11.6-15.3) Hematocrit 28.0 % (35.0-46.0) Mean Corpuscular Volume 88.2 FL (80.0-100.0) Mean Corpuscular Hemoglobin 29.1 PG (27.0-34.0) Mean Corpuscular Hemoglobin Concent 33.0 % (32.0-36.0) Red Cell Distribution Width 13.8 % (11.6-17.2) Platelet Count 264 TH/MM3 (150-450) Mean Platelet Volume 9.0 FL (7.0-11.0) Blood Urea Nitrogen 42 MG/DL (7-18) Creatinine 1.18 MG/DL (0.50-1.00) Random Glucose 167 MG/DL (74-106) Calcium Level 7.6 MG/DL (8.5-10.1) Magnesium Level 1.6 MG/DL (1.5-2.5) Sodium Level 141 MEQ/L (136-145) Potassium Level 3.2 MEQ/L (3.5-5.1) Chloride Level 104 MEQ/L (98-107) Carbon Dioxide Level 24.2 MEQ/L (21.0-32.0) Anion Gap 13 MEQ/L (5-15) Estimat Glomerular Filtration Rate 44 ML/MIN (>89) Total Creatine Kinase 30 U/L (26-192) Urine Color YELLOW (YELLW/STRAW) Urine Turbidity HAZY (CLEAR) Urine pH 5.5 (5.0-8.5) Urine Specific [place] 1.020 (1.002-1.035) Urine Protein TRACE mg/dL (NEG-TRACE) Urine Glucose (UA) 70 mg/dL (NEG) Urine Ketones NEG mg/dL (NEG) Urine Occult Blood MOD (NEG) Urine Nitrite NEG (NEG) Urine Bilirubin NEG (NEG) Urine Urobilinogen LESS THAN 2.0 MG/DL (LESS Urine Leukocyte Esterase SMALL (NEG) Urine RBC 28 /hpf (0-3) Urine WBC 8 /hpf (0-5) Urine Bacteria RARE /hpf (NONE) Urine Mucus FEW /lpf (OCC) Microscopic Urinalysis Comment CATH-CULTURE IND Total Bilirubin 0.3 MG/DL (0.2-1.0) Direct Bilirubin 0.2 MG/DL (0.0-0.2) Indirect Bilirubin 0.1 MG/DL (0.0-0.8) Aspartate Amino Transf (AST/SGOT) 16 U/L (15-37) Alanine Aminotransferase (ALT/SGPT) 35 U/L (10-53) Alkaline Phosphatase 95 U/L (45-117) Total Protein 5.2 GM/DL (6.4-8.2) Albumin 1.3 GM/DL (3.4-5.0) Lipase 164 U/L (73-393) Test 08/08/17 02:30 Potassium Level 3.1 MEQ/L (3.5-5.1) Result Diagram: 08/07/17 0529 08/08/17 0230 Microbiology Microbiology Date/Time Source Procedure Growth Status 08/08/17 04:23 Blood Peripheral Aerobic Blood Culture Pending Received 08/08/17 04:23 Blood Peripheral Anaerobic Blood Culture Pending Received 08/08/17 04:18 Blood Peripheral Aerobic Blood Culture Pending Received 08/08/17 04:18 Blood Peripheral Anaerobic Blood Culture Pending Received 08/07/17 18:50 Sputum Endotracheal Gram Stain - Final Resulted 08/07/17 18:50 Sputum Endotracheal Sputum Culture Pending Resulted 08/07/17 09:55 Urine Catheterized Urine Urine Culture Pending Received Procedures 08/02/2017: Right IJ central line placement 08/03/2017: Endotracheal intubation . Assessment and Plan Disease Oriented Problem List: (1) GI bleed (2) Metabolic acidosis (3) Altered mental status (4) Sepsis (5) Acute renal failure (6) Adjustment disorder with depressed mood (7) Hypertension Symptom Scale: (1) Weakness 0-10 Scale: Unable to quantify (Right flaccidity on admission, improving) (2) Altered mental status 0-10 Scale: Unable to quantify (Baseline dementia, intubated, sedated.) Pertinent Non-Medical Issues Psychosocial:Patient originally from [place]. Moved to [place] over 20 years ago. 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 Patient is single. She reports that she had a son but "was given away". Both parents are , one brother Felice at known age secondary to acute NM. One remaining brother by the name of Davi Sood who she has not seen in over 12 years. Spiritual: No samaritan affiliation. Legal: No advanced directive paperwork has been completed. Ethical issues impacting care: Resolved. Have made contact with the brother who is willing to serve as her healthcare proxy. . Important Contacts Brother: Davi Sood (verified) Possible nephew:Davi DeleonJr. anisa (verified), Possible family member: Sharon Sood (voicemail left). . Prognosis Her prognosis is guarded. She is admitted with severe dehydration, sepsis, pancreatitis, metabolic acidosis, acute kidney failure and GI bleed, then suffered ventilatory dependent respiratory failure. After conversation with her brother, who by [place] statutes would be her proxy decision-maker, she has been made a DNR/DNI and he is refusing any further invasive or aggressive procedures. She has multiple system compromise and is at increased risk of continued decline and complications. . Code Status: No Code Plan PLAN: Legal decision maker: At this time the patient's capacity cannot be determined as she is intubated and sedated. Contact has been made with her brother Davi, who is willing to be the legal decision maker. Contact information has been updated. Per [place] statutes hierarchy, as she is not and has no children, parents are , her brother would be her proxy decision-maker. Goals: Comfort oriented CODE STATUS: DNR/DNI SYMPTOMS: * Weakness: Multifactorial, related to sepsis, dehydration, hypotension, acidosis, pancreatitis, general and fpc debility. At last evaluation prior to intubation, strength was 3/5 consistent with her prior admission in November 2016. She is undergoing rehydration and antibiotic therapy. Physical therapy is following. She has been evaluated by Dr. Campoverde for rehab. She was wheelchair bound upon admission and is likely sustaining increasing weakness due to prolonged bedbound status. * Altered mental status: Multifactorial related to sepsis, hypotension, dehydration, acidosis, baseline psycho affective disorder/schizophrenia. She is currently intubated and sedated and a thorough assessment cannot be made at this time. She is following some commands at this time and can hopefully be medically extubated to further determine capacity and goals of care. * Edema: She has gross anasarca with significant pitting edema in all extremities. Hands are extremely swollen likely secondary to wrist restraints and dependent positioning. Her albumin is 1.3 and total protein 5.2. Her blood pressure is requiring significant support with Levophed, complicating diuresis. Her renal indices are improving. Palliative care will continue to follow the patient during hospital course as condition evolves, to assist patient/decision-maker with understanding of their medical conditions, weighing benefits/burdens of treatment options, for clarification of goals of treatment. Additionally will assist with any symptoms of palliative concern. . Attestation To help prompt me to consider important information that might be impacting today's encounter and assessment, information from prior notes written by myself or my colleagues may have been "brought forward" into today's note. My signature on this note, however, is an attestation that I personally performed the exam, history, and/or decision-making noted today, and, unless otherwise indicated, the interactions with patient, family, and staff as well as the review of records all occurred today. I also attest that the listed assessment and stated plan reflect my best clinical judgment today based on the combination of historical information, prior notes, and today's exam/ interactions. When time spent is documented, it refers only to time spent today by the signer, or if indicated, combined time spent today by collaborating physician/nurse practitioner. . Abigail Quigley Aug 08, 2017 12:53 pm
--- NOTE | 2017-08-08 12:53 | HHI.CCPN ---
Subjective Remarks/Hospital Course 76-year-old pleasantly demented female, [facility] resident. The patient was noted earlier today to have a sudden onset of right gaze, as well as right- sided weakness. She was also found to be very hypotensive. Initial blood pressure 60/20, which responded to fluids and increased to 90/60. She presented to the hospital as a stroke-alert. The MRI of brain obtained in the emergency department showed only questionable tiny subacute lacunar infarcts posterior periventricular white matter. Moderate to severe chronic ischemic changes in the periventricular white matter. Remote left parietal lobe infarct. The CT of the abdomen and pelvis however shows the abnormal pancreas with enlargement and peripancreatic inflammation and edema characteristic of acute pancreatitis. Cholelithiasis without pancreatic duct dilatation. 6: Afebrile. Patient continues to have severe metabolic acidosis sodium bicarbonate infusion continued. Patient on nonrebreather continuing to be weaned down . Patient bolused with 500 cc normal saline 1 this a.m.. Oliguric 150 cc urine output in the last 12 hours. Unable to assess the amount of IV fluid patient was given in the ED and overnight. No hematemesis or melena this a.m. Patient continues on Protonix twice daily. Patient currently on nonrebreather mask currently being weaned down O2 saturation 100% though PaO2 is 155. Triglycerides are pending. MRI is pending. 2: Afebrile. Overnight patient became hemodynamically unstable, central line placed patient currently on Levophed 12 mcgs/min. The patient FIO2 requirements are increasing, intubation planned. Echo report last night showed RV mildly dilated with RV systolic function mildly decreased. Concern for possible PE, however patient not a candidate in the setting of GI Bleed. Hgb and Hct trend stable. Metabolic acidosis resolved with NaHCO3 infusion, now decreased. Patient 's SVV continued elevation and BUN 77. Pt bolused IVF's this am. UOP, creatinine slightly improved overnight. Electrolytes being replaced and closely monitored. Discussed with GI AKI Spence after her discussion with Dr. Sanchez this am plan is for MRCP today by GI or Invasive Radiology. --> report indicates stone in CBD without ductal dilatation 08/04 Off levophed, remainsn on neosynephrine 80 mcg/min. RLE u/s shows extensive RLE DVT. No BMs overnight. Discussed with gastroenterology, Dr. Sanchez, who agrees with starting heparin drip and monitor closely for bleeding. HIDA scan yesterday shows no evidence of obstruction. LFTS trending down so GI has canceled IR consult for percutaneous transhepatic biliary drain. Creatinine down trending and urine output improved. 08/05 Now weaned off neosynephrine, on levophed 9 mcg/min, RN states unable to wean. Started on heparin drip yesterday, no evidence of bleeding. LFTs continue downtrend. Okay to resume tube feeds per GI, but OGT was coiled in mouth and was repositioned, so will need to confirm position before initiating tube feeds. Palliative care assisting with finding family, no success so far. 08/06 Remains on levophed. CI 2.2,LVEF appears preserved on bedside ultrasound. Thirdspacing with anasarca. Not following commands today, clonus and rigidity noted so obtained stat CT brain which shows no acute changes. No fever. Holding neuroleptics/serotonergics. Subjective: 08/07 Afebrile. WBC up to 33.9. Remains on levophed, requirement increased to 10 mcg/min. No BM since admission but had a large BM after bowel regimen given today, has been tolerating tube feeds. Not tolerating CPAP. Had clonus, rigidity and shaking of BLE with decreased responsiveness yesterday. CT brain negative. EEG mild encephalopathy. Suspected serotonin syndrome, now rigidity and clonus is resolved after stopping fentanyl, risperdal , zoloft. On low dose propofol. Still trying to find family. 08/08: Remains sedated, a little bit on mechanical ventilation. On Levophed 4 mics per minute. Worsening leukocytosis despite antibiotics and addition of antifungal therapy on 08/07. Objective Vital Signs Date Time Temp Pulse Resp B/P (MAP) Pulse Ox O2 Delivery O2 Flow Rate FiO2 08/08/17 12:03 100 35 08/08/17 08:26 74 131/52 08/08/17 04:00 98.7 12 Intake and Output 08/08/17 08/08/17 08/09/17 08:00 16:00 00:00 Intake Total 414 ml Output Total 550 ml Balance -136 ml Result Diagram: 08/07/17 0529 08/08/17 0230 Imaging Last [address] 08/01/17 0000 Signed Impressions: CONCLUSION: 1. No acute intracranial abnormality is identified. 2. However, there is encephalomalacia in the left parietal region and there is generalized atrophy with severe periventricular white matter low-attenuation c haracteristic of chronic microvascular ischemia. Chest X-Ray 08/01/17 Signed Impressions: CONCLUSION: Underinflated examination with small bilateral pleural effusions with compressi ve atelectasis at the lung bases. Carotid Artery Ultrasound 08/01/17 Signed Impressions: CONCLUSION: 1. Right Internal Carotid Artery: Findings indicate <50% stenosis. 2. Left Internal Carotid Artery: Findings indicate <50% stenosis. Abdomen/Pelvis CT 08/01/17 Signed Impressions: CONCLUSION: 1. The pancreas is abnormal with enlargement and peripancreatic inflammation a nd edema characteristic of acute pancreatitis. There is a small volume of free fluid in the abdomen and pelvis. 2. Cholelithiasis without pancreatic duct dilatation. 3. There is mild wall thickening of the inferior rectum with associated presac ral edema. 4. Small bilateral pleural effusions with associated compressive atelectasis. 5. There is a compression deformity of uncertain chronicity involving L3 and c ompression deformity with sclerosis involving T9. Objective Remarks GENERAL: This is an elderly, critically ill appearing female patient, awakens on sedation and makes eye contact but not following commands. SKIN: No rashes, ecchymoses or lesions. Dry. HEAD: Atraumatic. Normocephalic. No temporal or scalp tenderness. EYES: Resists eye opening, pupils 2 mm equal round and reactive. Extraocular motions intact. No scleral icterus. No injection or drainage. NECK: Trachea midline. No JVD or lymphadenopathy. No meningismus CARDIOVASCULAR: Regular rate and rhythm with no m/r/g RESPIRATORY: Orotracheally intubated on mechanical ventilation. Coarse bilateral breath sounds, diminished at bases. GASTROINTESTINAL: Abdomen soft, non-tender, mildly distended. No rebound or guarding. : Mary in place MUSCULOSKELETAL: Extremities without clubbing, cyanosis. Anasarca. NEUROLOGICAL: Awakes to voice, makes eye contact. Moves extremities spontaneously but not following commands. Legs no longer rigid. No clonus. DTR 2 + patellar. Date of Insertion: Aug 02, 2017 Date of Insertion: Aug 03, 2017 A/P Assessment and Plan Plan by systems: Neurologic: Acute left lacunar stroke History of previous CVA Dementia Schizophrenia Depression 08/02 MRI-moderate to severe ischemic changes. Tiny subacute lacunar infarcts. Remote left parietal lobe infarct 08/02 MRA brain-negative 08/02-CT brain-no acute abnormality Carotids-<50% stenosis Patient is followed by neurology-Dr. Michelle Was not a candidate for TPA on admission due to acute GI bleed Rigidity and clonus ?serotonin syndrome, now improved after Holding zoloft , risperidone and fentanyl. EEG - mild encephalopathy, no seizure Respiratory: Acute hypoxemic respiratory failure Intubated 08/03 On PRVC. daily CPAP trial, not tolerating. Duo nebs every 6 hours scheduled every 2 hours as needed Ventilator bundle 08/02 CT-small bilateral pleural effusions bases D-dimer elevated.-suspicion for PE given the echo results-unable to do CT angiogram due to acute kidney injury. Does have extensive right lower extremity DVT so needs anticoagulation. Has not had any further bleeding. Discussed with gastroenterology, Dr. Sanchez 08/04, and proceeded with anticoagulation with heparin Cardiovascular: Hypovolemic and septic shock secondary to acute pancreatitis Art line is in place with Flowtrack monitoring ongoing. SVV is 9. Neosynephrine has been weaned off. She remains on Levophed, unable to wean. Bedside cardiac u/s hyperdynamic, appears septic and third-spacing. Cortisol 20. 08/02 echo-right ventricle mildly dilated. Right ventricular systolic function mildly decreased. EF 55-60% 08/03-troponin increased 0.03->0.27. Possibly secondary to acute kidney injury, infection. Conceivably could be related to PE but would not use TPA at this time anyway due to bleeding risk and she is not a candidate for CT pulmonary angiogram due to acute kidney injury. Cardiology has evaluated, Dr. Tang. He has not recommended any further ischemic workup and has signed off. Mild hypertriglyceridemia is not the etiology of pancreatitis. Is on gemfibrozil 600 mg p.o. twice daily Renal: Acute hypokalemia Acute hypophosphatemia Acute kidney injury Maintain Mary catheter -- Strict I/Os --Electrolyte replacement by protocol Follow-up CMP and phosphorus in the morning. Nephrology, Dr. Sheridan has now signed off. FEN/GI: Acute gallstone pancreatitis, resolved. Choledocholithiasis Dyslipidemia GI bleed, resolved Elevated liver enzymes Chronic moderate protein calorie malnutrition 08/02- 1700 S/P MRI-at least one stone in the common bile duct. Dr. Mahoney spoke with Dr. Sanchez made him aware of patient's result. 08/03: MRCP demonstrates gallstones with cysts CBD stone. No dilatation of CBD. Minimal gallbladder wall thickening with trace fluid 08/03 HIDA scanno evidence of cystic duct or distal common bile duct obstruction. Normal gallbladder ejection fraction. Lipase now normalized at 134. LFTs downtrending. It appears she has passed a stone. Protonix twice daily Rectal wall thickening on the CT In ED patient was noted to have bright red blood per rectum. Was transfused 2 units packed red cells 08/01. Has not had any further bleeding. GI is not planning to scope at this time. Recommended proceed with anticoagulation for extensive DVT and possible PE and monitor closely for evidence of bleeding. Jevity 1.5 20 cc/h, advance to goal rate 50/hr per nutrition recs. Heme: Acute blood loss anemia 2/2 GI bleed Persistent leukocytosis Extensive right lower extremity DVT Monitor CBC Transfuse for hemoglobin less than 7 Patient transfused 2 units packed red blood cells in the ED (08/01) Ultrasound bilateral lower extremity xtensive right lower extremity DVT including iliac vein and extending below the knee to the posterior tibial vein. Continue heparin drip. Initiated 08/04. Hgbs have been relatively stable. ID: Septic shock secondary to gallstone pancreatitis Has been on broad-spectrum antibiotics: Vancomycin, aztreonam, Flagyl since due to septic shock. She appears to be having recurrent sepsis given worsening leukocytosis, worsening hypotension, increased insulin resistance. LFTs and lipase remain normal. No diarrhea. Could be related to invasive lines which Dr. Cotto discussed with her brother, however he did not want her to undergo any invasive procedures to replace them so will leave in place. Pancultured. Added antifungal coverage empirically. Consult ID in view of worsening leukocytosis and septic shock. Endocrine: Hyperglycemia hemoglobin A1c 5.6 Glucose monitoring per ICU protocol. Low-dose regimen. Glucose trending upward , monitor and increase to medium dose if not meeting target. -- SSI Prophylaxis: GI Prophylaxis Protonix BID DVT Prophylaxis Heparin drip as per above Lines: Right IJ central venous line 08/02 Right radial art line in place, will need to remain in place for hemodynamic monitoring while weaning pressors. Palliative care updated brother, Davi Sood and code status changed to DNR as he states he will honor patients prior wishes expressed during last hospitalization. I provided additional update. He indicates he does not want any additional invasive procedures and therefore does not want CVL or art line replaced, no trach/PEG, no ERCP, etc. Condition remains critical. Time spent on critical care excluding procedures 35 minutes Tutu Pham MD Aug 08, 2017 12:53
[2017-08-08] MEDS: VANCOMYCIN INJ 1,500 MG in SODIUM CHLORID 0.9% 500 ML INJ 500 ML IV SCH (13:43)
[2017-08-08] MEDS ORDERED: PHARMACY ORDERED LAB ONE (13:45)
[2017-08-08] MEDS: POTASSIUM CHLOR 40 MEQ PREMIX 100 ML IV PRN (17:48)
[2017-08-08] MEDS: ZOLPIDEM TARTRATE 5 MG TAB PO SCH (19:45)
[2017-08-08] MEDS: MICAFUNGIN INJ 100 MG in SODIUM CHLORIDE 0.9% INJ 100 ML IV SCH (19:58)
--- NOTE | 2017-08-08 21:04 | RADRPT ---
EXAM DATE: 08/08/2017 8:58 PM EDT AGE/SEX: 76 years / Female INDICATIONS: Respiratory failure. CLINICAL DATA: This is the patient's initial encounter. Patient reports that signs and symptoms have been present for 1 day and indicates a pain score of Nonresponsive. MEDICAL/SURGICAL HISTORY: Cerebrovascular disease. None. [place] [facility] [place] . FINDINGS: Portable AP view of the chest demonstrate a normal-sized cardiac silhouette with calcification of the aorta. Nasogastric tube distal tip is in the stomach. Endotracheal tube is present with tip measurin g approximately 2.5 cm from the faina. Right IJ line central line remains present and distal tip mirta ears to be in the SVC. Multiple lines overlie the patient. Lungs are underinflated with mild by basil ar airspace opacity with slight blunting of the costophrenic sulci bilaterally. No pneumothorax is id entified. CONCLUSION: 1. Small bilateral pleural effusions with mild atelectasis versus consolidation at the lung bases. 2. Tubes and lines appear stable. Electronically signed by: Jose Lee MD 08/08/2017 9:03 PM EDT
[2017-08-08] MEDS ORDERED: RESP: ALBUTEROL 2.5 MG/3 ML NEB (PRN) NEB (22:00)
--- NOTE | 2017-08-08 22:19 | PD.ID.CON ---
History of Present Illness Service ID Consult Requested By Dr Pham Reason for Consult sepsis, septic shock Primary Care Physician Unknown Diagnoses: History of Present Illness 76 yo female with multiplr med problems admitted on August 01 with stroke alert She presented septic, hypotensive and CT showed panceratitis She reamined hemodynamically unsta\ble requiring pressors support and on August 03 was intubated RLE u/s shows extensive RLE DVT. MRCP done on 08/03 report indicates stone in CBD without ductal dilatation She remains afebril, but WBC up to 33.9. Remains on levophed, down to 2 mcg/ min. reportedly a large BM after bowel regimen given today, has been tolerating tube feeds @ goal She is on vancomycin, azrtreonam, flagy and micafungin was added Grew MRSA in sputum Blood clx negative from admission, repeat P Urine clx neg from yday Review of Systems ROS Limitations: Clinical Condition, Intubated, Altered Mental Status Past Family Social History Allergies: Coded Allergies: aspirin (Unverified Allergy, Severe, 10/16/16) PT HAS TINNITUS penicillin G (Unverified Allergy, Severe, 10/16/16) Past Medical History Chronic kidney disease stage III Dementia Depression Schizophrenia Anxiety GERD Osteoarthritis Compression fracture Past Surgical History Right lumpectomy Hysterectomy Active Ordered Medications Medications where reviewed in EMR Antibiotics Include: vancomycin, azrtreonam, micafungin flagyl Family History Unable to obtain Social History Patient resides at a snf, no documented tobacco abuse, no alcohol abuse, no illegal drug use. Physical Exam Vital Signs Vital Signs Date Time Temp Pulse Resp B/P (MAP) Pulse Ox O2 Delivery O2 Flow Rate FiO2 08/08/17 20:20 100 35 08/08/17 20:00 89 08/08/17 20:00 99.1 89 13 135/68 (90) 99 137/55 (82) 08/08/17 18:00 91 08/08/17 16:53 100 35 08/08/17 16:00 99.2 96 13 138/66 (90) 98 146/60 (88) 08/08/17 16:00 35 08/08/17 16:00 96 08/08/17 14:00 82 08/08/17 12:03 100 35 08/08/17 12:00 35 08/08/17 12:00 90 08/08/17 12:00 98.8 90 15 128/71 (90) 98 146/59 (88) 08/08/17 10:00 88 08/08/17 08:26 74 131/52 08/08/17 08:00 98.6 69 12 116/56 (76) 99 124/49 (74) 08/08/17 08:00 35 08/08/17 08:00 69 08/08/17 07:42 99 35 08/08/17 06:00 69 08/08/17 05:42 67 112/44 08/08/17 04:21 98 35 08/08/17 04:00 77 08/08/17 04:00 35 08/08/17 04:00 98.7 77 12 127/60 (82) 98 130/53 (78) 08/08/17 02:00 71 08/08/17 00:20 99 35 08/08/17 00:00 98.6 74 12 108/53 (71) 99 126/49 (74) 08/08/17 00:00 35 08/08/17 00:00 74 08/07/17 23:00 87 141/53 Physical Exam CONSTITUTIONAL/GENERAL: This is an adequately nourished patient, in no apparent distress.Sedated. Intubated TUBES/LINES/DRAINS: SKIN: No jaundice, rashes, or lesions. Ecchymoses on upper extremities. No wounds seen anteriorly. Skin temperature appropriate. Not diaphoretic. HEAD: Atraumatic. Normocephalic. EYES: Pupils equal and round and reactive. Extraocular motions intact. No scleral icterus. No injection or drainage. Fundi not examined. ENT: Hearing not tested Nose without bleeding or purulent drainage. Throat without visible erythema, exudates, masses, or lesions. NECK: Trachea midline. Supple, nontender. No palpable thyroid enlargement or nodularity. CARDIOVASCULAR: Regular rate and rhythm without murmurs, gallops, or rubs. No JVD. Peripheral pulses symmetric. RESPIRATORY/CHEST: Symmetric, unlabored respirations. Clear to auscultation. Breath diminished b/b bilaterally. No wheezes, rales, or rhonchi. GASTROINTESTINAL: Abdomen tight and very distended. No reaction to palpation No hepato-splenomegaly, or palpable masses. No guarding. Bowel sounds present. GENITOURINARY: Without palpable bladder distension. Mary catheter in place with adequatre amount of yellow urine MUSCULOSKELETAL: Extremities without clubbing, cyanosis, Massive tight BLE 4+ edema. No joint tenderness or effusion noted. No calf tenderness. No mottling or clubbing. LYMPHATICS: No palpable cervical or supraclavicular adenopathy. NEUROLOGICAL: Sedated. Follows when off PSYCHIATRIC: unable to assess Laboratory Laboratory Tests Test 08/08/17 02:30 08/08/17 13:45 Potassium Level 3.1 Vancomycin Level Trough 20.1 Date/Time Source Procedure Growth Status 08/08/17 04:23 Blood Peripheral Aerobic Blood Culture Pending Received 08/08/17 04:23 Blood Peripheral Anaerobic Blood Culture Pending Received 08/07/17 18:50 Sputum Endotracheal Gram Stain - Final Resulted 08/07/17 18:50 Sputum Culture - Preliminary Staph Sp Coagulase Positive Resulted 08/07/17 09:55 Urine Catheterized Urine Urine Culture - Preliminary NO GROWTH IN 24 HOURS. Resulted Result Diagram: 08/07/17 0529 08/08/17 0230 Imaging Last Impressions Chest X-Ray 08/08/17 0000 Signed Impressions: CONCLUSION: 1. Small bilateral pleural effusions with mild atelectasis versus consolidatio n at the lung bases. 2. Tubes and lines appear stable. Head CT 08/06/17 Signed Impressions: CONCLUSION: 1. 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 No evidence of hemorrhage or acute m ass effect. Diffuse atrophy. Abdomen X-Ray 08/05/17 Signed Impressions: CONCLUSION: OG tube tip in proximal stomach. Mild basilar airspace disease with small left effusion. Lower Extremity Ultrasound 08/03/17 Signed Impressions: CONCLUSION: 1. Extensive DVT of the right lower extremity. 2. No venous thrombosis of the left lower extremity. Hepatobiliary Scan Nuclear Medicine 08/03/17 Signed Impressions: CONCLUSION: 1. No evidence of cystic duct or distal common bile duct obstruction. 2. Normal gallbladder ejection fraction. Cholangiopancreatography MRI 08/02/17 Signed Impressions: CONCLUSION: 1. Gallstones with at least one stone in the common duct 2. Pancreas poorly visualized because of motion. 3. Fluid present in the lesser sac consistent with pancreatitis. Head Magnetic Resonance Angiography 08/01/17 Signed Impressions: CONCLUSION: 1. Negative MRA [place] ([place]) non contrast. Carotid Artery Ultrasound 08/01/17 Signed Impressions: CONCLUSION: 1. Right Internal Carotid Artery: Findings indicate <50% stenosis. 2. Left Internal Carotid Artery: Findings indicate <50% stenosis. Brain MRI 08/01/17 Signed Impressions: CONCLUSION: 1. Questionable tiny subacute lacunar infarcts posterior periventricular white matter. Moderate to severe chronic ischemic changes in the periventricular whi te matter. Remote left parietal lobe infarct. Abdomen/Pelvis CT 08/01/17 Signed Impressions: CONCLUSION: 1. The pancreas is abnormal with enlargement and peripancreatic inflammation a nd edema characteristic of acute pancreatitis. There is a small volume of free fluid in the abdomen and pelvis. 2. Cholelithiasis without pancreatic duct dilatation. 3. There is mild wall thickening of the inferior rectum with associated presac ral edema. 4. Small bilateral pleural effusions with associated compressive atelectasis. 5. There is a compression deformity of uncertain chronicity involving L3 and c ompression deformity with sclerosis involving T9. Assessment and Plan Assessment and Plan Severe pancreatitis Multi- organ failure Leukocytosis, leukemoid reaction Severe ileus Critically ill unstable cont current anx stool for C.diff monitor WBC might switch to meropenem if cont to worsen WBC fu P blodo clx stool for C.diff repeat abd/pel scan Discussed Condition With RN Myranda Hernandez MD Aug 08, 2017 22:18
[2017-08-08] MEDS: RESP: ALBUTEROL 2.5 MG/IPRATROPIUM 0.5 MG NEB (SCH) NEB (23:17)
[2017-08-09] VITALS (25 sets, daily range): BP systolic 86–124; BP diastolic 43–69; PULSE 96–108; RESP 12–28; TEMP 98.2–99.9; O2SAT 95–98
[2017-08-09] MEDS: RESP: ALBUTEROL 2.5 MG/IPRATROPIUM 0.5 MG NEB (SCH) NEB ×6 (02:58→23:20)
[2017-08-09] MEDS: CHLORHEXIDINE GLUCONATE 2 % 1 PACK (2 CLOTHS) TOP SCH (04:00)
[2017-08-09] MEDS: metroNIDAZOLE 500 MG INJ 100 ML IV SCH ×3 (05:04→22:10)
[2017-08-09 05:42] LABS: HEMATOCRIT 27.6 % (35.0-46.0); HEMOGLOBIN 8.8 GM/DL (11.6-15.3); MEAN CELL VOLUME 89.9 FL (80.0-100.0); MEAN CORPUSCULAR HEMOGLOBIN 28.8 PG (27.0-34.0); MEAN PLATELET VOLUME 9.2 FL (7.0-11.0); PLATELET COUNT 295 TH/MM3 (150-450); RED BLOOD COUNT 3.07 MIL/MM3 (4.00-5.30); RED CELL DISTRIBUTION WIDTH 14.2 % (11.6-17.2); WHITE BLOOD COUNT 30.8 TH/MM3 (4.0-11.0)
[2017-08-09] MEDS: GEMFIBROZIL 600 MG TAB PO SCH ×2 (06:05→17:05)
[2017-08-09] MEDS: AZTREONAM INJ 2,000 MG in SODIUM CHLORIDE 0.9% INJ 100 ML IV SCH ×3 (06:05→22:48)
[2017-08-09 06:10] LABS: ALBUMIN 1.2 GM/DL (3.4-5.0); BICARBONATE 22.1 MEQ/L (21.0-32.0); CALCIUM-PROTEIN CORRECTED 8.2 MG/DL (8.5-10.1); CREATININE 0.8 MG/DL (0.50-1.00); TOTAL BILIRUBIN ADULT 0.2 MG/DL (0.2-1.0); TOTAL PROTEIN 4.9 GM/DL (6.4-8.2)
[2017-08-09 07:09] LABS: BANDS 7 % (0-6); LYMPHOCYTES 3 % (9-44); METAMYELOCYTES 4 % (0-1); MONOCYTES 2 % (0-8); POLYS (SEG NEUTROPHILS) 83 % (16-70); TOXIC GRANULATION 1+ (NORMAL)
[2017-08-09] MEDS: CHLORHEXIDINE 0.12% (ORAL KIT) 15 ML CUP MT SCH ×2 (08:00→20:58)
[2017-08-09] MEDS: INSULIN ASPART SUPPLEMENTAL SCALE SQ SCH ×4 (08:00→21:06)
[2017-08-09] MEDS ORDERED: DIATRIZOATE MEGLUM/DIATRIZOATE SOD 9 ML CUP PO ONE (08:30)
[2017-08-09] MEDS: DOCUSATE SODIUM 50 MG/SENNA 8.6 MG TAB PO SCH ×2 (09:00→20:58)
[2017-08-09] MEDS: SODIUM CHLORIDE 0.9% FLUSH 10 ML FLUSH IV FLUSH SCH ×2 (09:00→20:57)
--- NOTE | 2017-08-09 10:53 | HHI.HCPN ---
Reason for visit A. To assist with evaluation and management of symptoms including:Weakness, edema, altered mental status b. To assist medical decision maker(s) with: better understanding of current medical conditions; weighing benefits/burdens of medical treatment options; making medical treatment decisions. Subjective/Interval History Palliative care follow-up for further clarification of goals of care, and evaluation of symptoms of weakness, edema and altered mental status. Patient seen in medical ICU, remains endotracheally intubated on mechanical ventilation. Currently on propofol drip at 10 mcg/kg/min, Levophed has been weaned off. She remains on tube feeding at 50 mL/h. She is minimally breathing over the vent. She tries to open her eyes to verbal and tactile stimuli however remains too weak. She is minimally sedated and will withdraw only weakly to noxious stimuli. FiO2 remains at 35%, PEEP 5, RR 12. She has gross anasarca and 3+ pitting edema in all extremities. She was seen to move her left foot to command but otherwise not responding. White blood cell count remains elevated at 30.8, hemoglobin 8.8, hematocrit 27.6 , platelets 295, sodium 145, potassium 4.1, BUN 30, creatinine 0.80, calcium 7.0 , protein corrected calcium 8.2, total protein 4.9, albumin 1.2. New blood cultures were drawn 08/08 and are pending. Sputum culture shows staph aureus MRSA. Infectious disease is following and has ordered vancomycin, micafungin, aztreonam and metronidazole. CT scan of the abdomen and pelvis without IV contrast was ordered by infectious disease, however, in previous conversations with her healthcare decision maker, who is her brother Davi, he has declined all aggressive or invasive interventions to include not replacing a central line , adding an arterial line, tracheostomy or PEG placement. He has not yet specified if he wishes to convert to comfort measures and withdraw therapy or merely not escalate treatment. Pending callback to explore his decision further. . Family/friend interactions Call placed to brothtamia at 10:37 AM, voicemail left. . Advance Directives Living Will: Never completed Health Care Surrogate: Never completed Durable Power of Operating Room Technician: Never completed Advance Directive Specifics Documented care wishes: No living will available. . Objective Vital Signs Date Time Temp Pulse Resp B/P (MAP) Pulse Ox O2 Delivery O2 Flow Rate FiO2 08/09/17 07:39 97 35 08/09/17 06:00 104 08/09/17 06:00 104 101/55 (70) 08/09/17 04:00 104 08/09/17 04:00 99.9 104 14 103/59 (74) 97 123/49 (73) 08/09/17 04:00 35 08/09/17 03:50 96 35 08/09/17 02:06 98 35 08/09/17 02:00 108 08/09/17 00:00 99.5 105 16 115/55 (75) 98 124/49 (74) 08/09/17 00:00 105 08/09/17 00:00 35 08/08/17 22:00 104 08/08/17 21:02 104 122/46 08/08/17 20:32 105 156/63 08/08/17 20:20 100 35 08/08/17 20:15 102 125/93 08/08/17 20:00 89 08/08/17 20:00 35 08/08/17 20:00 99.1 89 13 135/68 (90) 99 137/55 (82) 08/08/17 20:00 89 135/68 (90) 08/08/17 19:59 89 135/68 08/08/17 18:00 91 08/08/17 16:53 100 35 08/08/17 16:00 99.2 96 13 138/66 (90) 98 146/60 (88) 08/08/17 16:00 35 08/08/17 16:00 96 08/08/17 14:00 82 08/08/17 12:03 100 35 08/08/17 12:00 35 08/08/17 12:00 90 08/08/17 12:00 98.8 90 15 128/71 (90) 98 146/59 (88) Intake & Output 08/09/17 08/09/17 06:59 18:59 Intake Total 1210.6 ml Output Total 550 ml Balance 660.6 ml IV Total 566.6 ml Tube Feeding 524 ml Other 120 ml Output Urine Total 550 ml # Bowel Movements 2 Physical Exam CONSTITUTIONAL/GENERAL: This is an obese patient, intubated, lightly sedated, in no apparent distress. TUBES/LINES/DRAINS: ETT, OGT, Mary, left PIV 2, right IJ central line. Bilateral soft wrist restraints. SKIN: No jaundice, rashes, or lesions. Ecchymoses on upper extremities. Small scabbed areas seen on left forearm. Skin temperature appropriate. Not diaphoretic. HEAD: Atraumatic. Normocephalic. EYES: Pupils equal and round and reactive. Resists eyelid retraction. No scleral icterus. No injection or drainage ENT: Nose without bleeding or purulent drainage. NECK: Trachea midline. Supple. CARDIOVASCULAR: Regular rate and rhythm without murmurs, gallops, or rubs. No JVD. Peripheral pulses symmetric. RESPIRATORY/CHEST: Symmetric, unlabored respirations. Coarse breath sounds with occasional rhonchi. GASTROINTESTINAL: Abdomen obese, distended. Limited abdominal exam due to body habitus. Bowel sounds present. Had 3 episodes of diarrhea overnight. GENITOURINARY: Without palpable bladder distension. Mary catheter in place. MUSCULOSKELETAL: Extremities without clubbing or cyanosis. Generalized edema right greater than left. No mottling or clubbing. NEUROLOGICAL: Unarousable, intubated, lightly sedated, able to move toes on left foot to command, attempted to open eyes but appeared to weak. PSYCHIATRIC: Sedated, appears calm. . Diagnostic Tests Laboratory Laboratory Tests Test 08/06/17 15:43 08/07/17 05:29 08/07/17 09:55 08/07/17 11:36 Activated Partial Thromboplast Time 43.4 SEC (24.3-30.1) White Blood Count 33.9 TH/MM3 (4.0-11.0) Red Blood Count 3.17 MIL/MM3 (4.00-5.30) Hemoglobin 9.2 GM/DL (11.6-15.3) Hematocrit 28.0 % (35.0-46.0) Mean Corpuscular Volume 88.2 FL (80.0-100.0) Mean Corpuscular Hemoglobin 29.1 PG (27.0-34.0) Mean Corpuscular Hemoglobin Concent 33.0 % (32.0-36.0) Red Cell Distribution Width 13.8 % (11.6-17.2) Platelet Count 264 TH/MM3 (150-450) Mean Platelet Volume 9.0 FL (7.0-11.0) Blood Urea Nitrogen 42 MG/DL (7-18) Creatinine 1.18 MG/DL (0.50-1.00) Random Glucose 167 MG/DL (74-106) Calcium Level 7.6 MG/DL (8.5-10.1) Magnesium Level 1.6 MG/DL (1.5-2.5) Sodium Level 141 MEQ/L (136-145) Potassium Level 3.2 MEQ/L (3.5-5.1) Chloride Level 104 MEQ/L (98-107) Carbon Dioxide Level 24.2 MEQ/L (21.0-32.0) Anion Gap 13 MEQ/L (5-15) Estimat Glomerular Filtration Rate 44 ML/MIN (>89) Total Creatine Kinase 30 U/L (26-192) Urine Color YELLOW (YELLW/STRAW) Urine Turbidity HAZY (CLEAR) Urine pH 5.5 (5.0-8.5) Urine Specific Warner 1.020 (1.002-1.035) Urine Protein TRACE mg/dL (NEG-TRACE) Urine Glucose (UA) 70 mg/dL (NEG) Urine Ketones NEG mg/dL (NEG) Urine Occult Blood MOD (NEG) Urine Nitrite NEG (NEG) Urine Bilirubin NEG (NEG) Urine Urobilinogen LESS THAN 2.0 MG/DL (LESS Urine Leukocyte Esterase SMALL (NEG) Urine RBC 28 /hpf (0-3) Urine WBC 8 /hpf (0-5) Urine Bacteria RARE /hpf (NONE) Urine Mucus FEW /lpf (OCC) Microscopic Urinalysis Comment CATH-CULTURE IND Total Bilirubin 0.3 MG/DL (0.2-1.0) Direct Bilirubin 0.2 MG/DL (0.0-0.2) Indirect Bilirubin 0.1 MG/DL (0.0-0.8) Aspartate Amino Transf (AST/SGOT) 16 U/L (15-37) Alanine Aminotransferase (ALT/SGPT) 35 U/L (10-53) Alkaline Phosphatase 95 U/L (45-117) Total Protein 5.2 GM/DL (6.4-8.2) Albumin 1.3 GM/DL (3.4-5.0) Lipase 164 U/L (73-393) Test 08/08/17 02:30 08/08/17 13:45 08/08/17 22:37 08/09/17 04:08 Potassium Level 3.1 MEQ/L (3.5-5.1) 4.1 MEQ/L (3.5-5.1) Vancomycin Level Trough 20.1 MCG/ML (5.0-10.0) Stool C. difficile Toxin (PCR) NEGATIVE (NEGATIVE) Stl C. difficile Toxin Epiderm 027 PRESUMPTIVE NEGATIVE White Blood Count 30.8 TH/MM3 (4.0-11.0) Red Blood Count 3.07 MIL/MM3 (4.00-5.30) Hemoglobin 8.8 GM/DL (11.6-15.3) Hematocrit 27.6 % (35.0-46.0) Mean Corpuscular Volume 89.9 FL (80.0-100.0) Mean Corpuscular Hemoglobin 28.8 PG (27.0-34.0) Mean Corpuscular Hemoglobin Concent 32.0 % (32.0-36.0) Red Cell Distribution Width 14.2 % (11.6-17.2) Platelet Count 295 TH/MM3 (150-450) Mean Platelet Volume 9.2 FL (7.0-11.0) CBC Comment AUTO DIFF Differential Total Cells Counted 100 Neutrophils % (Manual) 83 % (16-70) Band Neutrophils % 7 % (0-6) Lymphocytes % 3 % (9-44) Monocytes % 2 % (0-8) Eosinophils % 1 % (0-4) Neutrophils # (Manual) 29.0 TH/MM3 (1.8-7.7) Metamyelocytes 4 % (0-1) Differential Comment FINAL DIFF MANUAL Toxic Granulation 1+ (NORMAL) Platelet Estimate NORMAL (NORMAL) Platelet Morphology Comment NORMAL (NORMAL) Blood Urea Nitrogen 30 MG/DL (7-18) Creatinine 0.80 MG/DL (0.50-1.00) Random Glucose 243 MG/DL (74-106) Total Protein 4.9 GM/DL (6.4-8.2) Albumin 1.2 GM/DL (3.4-5.0) Calcium Level 7.0 MG/DL (8.5-10.1) Alkaline Phosphatase 81 U/L (45-117) Aspartate Amino Transf (AST/SGOT) 13 U/L (15-37) Alanine Aminotransferase (ALT/SGPT) 21 U/L (10-53) Total Bilirubin 0.2 MG/DL (0.2-1.0) Sodium Level 145 MEQ/L (136-145) Chloride Level 113 MEQ/L (98-107) Carbon Dioxide Level 22.1 MEQ/L (21.0-32.0) Anion Gap 10 MEQ/L (5-15) Estimat Glomerular Filtration Rate 69 ML/MIN (>89) Protein Corrected Calcium 8.2 MG/DL (8.5-10.1) Result Diagram: 08/09/178 08/09/178 Microbiology Microbiology Date/Time Source Procedure Growth Status 08/08/17 04:23 Blood Peripheral Aerobic Blood Culture Pending Received 08/08/17 04:23 Blood Peripheral Anaerobic Blood Culture Pending Received 08/08/17 04:18 Blood Peripheral Aerobic Blood Culture Pending Received 08/08/17 04:18 Blood Peripheral Anaerobic Blood Culture Pending Received 08/07/17 18:50 Sputum Endotracheal Gram Stain - Final Complete 08/07/17 18:50 Sputum Culture - Final S. Aureus Mrsa Complete 08/07/17 09:55 Urine Catheterized Urine Urine Culture - Final NO GROWTH IN 48 HOURS. Complete Procedures 08/02/2017: Right IJ central line placement 08/03/2017: Endotracheal intubation . Assessment and Plan Disease Oriented Problem List: (1) GI bleed (2) Metabolic acidosis (3) Altered mental status (4) Sepsis (5) Acute renal failure (6) Adjustment disorder with depressed mood (7) Hypertension Symptom Scale: (1) Weakness 0-10 Scale: Unable to quantify (Right flaccidity on admission, improving) (2) Altered mental status 0-10 Scale: Unable to quantify (Baseline dementia, intubated, sedated.) Pertinent Non-Medical Issues Psychosocial:Patient originally from [place]. Moved to [place] over 20 years ago. 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 Patient is single. She reports that she had a son but "was given away". Both parents are , one brother Felice at known age secondary to acute CT. One remaining brother by the name of Davi Sood who she has not seen in over 12 years. Spiritual: No yarsani affiliation. Legal: No advanced directive paperwork has been completed. Ethical issues impacting care: Resolved. Have made contact with the brother who is willing to serve as her healthcare proxy. . Important Contacts Brother: Davi Sood (verified) Possible nephew:Davi Sood Jr. (verified), Possible family member: Sharon Sood (voicemail left). . Prognosis Her prognosis is guarded. She is admitted with severe dehydration, sepsis, pancreatitis, metabolic acidosis, acute kidney failure and GI bleed, then suffered ventilatory dependent respiratory failure. After conversation with her brother, who by [place] statutes would be her proxy decision-maker, she has been made a DNR/DNI and he is refusing any further invasive or aggressive procedures. Per my discussion with Dr. Cotto, it is appearing that she may be entering a second round of sepsis, which will complicate her being medically extubated prior to the time for trach/PEG decision. Brother has indicated that he will not approve a tracheostomy or PEG tube placement, but has not yet specified comfort measures versus withdrawal versus no escalation. She has multiple system compromise and is at increased risk of continued decline and complications. . Code Status: No Code Plan PLAN: Legal decision maker: At this time the patient's capacity cannot be determined as she is intubated and sedated. Contact has been made with her brother Davi, who is willing to be the legal decision maker. Contact information has been updated. Per [place] statutes hierarchy, as she is not and has no children, parents are , her brother would be her proxy decision-maker. Goals: Comfort oriented CODE STATUS: DNR/DNI SYMPTOMS: * Weakness: Multifactorial, related to sepsis, dehydration, hypotension, acidosis, pancreatitis, general and mcc debility. At last evaluation prior to intubation, strength was 3/5 consistent with her prior admission in November 2016. She is undergoing rehydration and antibiotic therapy. Physical therapy is following. She has been evaluated by Dr. Campoverde for rehab. She was wheelchair bound upon admission and is likely sustaining increasing weakness due to prolonged bedbound status. * Altered mental status: Multifactorial related to sepsis, hypotension, dehydration, acidosis, baseline psycho affective disorder/schizophrenia. She is currently intubated and sedated and a thorough assessment cannot be made at this time. She is following some commands at this time but appears to be becoming septic again, limiting the ability to diurese her for medical extubation. Her brother is declining any invasive measures to include trach/ PEG. Pending brothers decision regarding withdrawal versus no escalation. * Edema: She has gross anasarca with significant pitting edema in all extremities. Hands are extremely swollen likely secondary to wrist restraints and dependent positioning. Her albumin is 1.2 and total protein 4.9. Her blood pressure is requiring significant support with Levophed, complicating diuresis. Her renal indices are improving. Palliative care will continue to follow the patient during hospital course as condition evolves, to assist patient/decision-maker with understanding of their medical conditions, weighing benefits/burdens of treatment options, for clarification of goals of treatment. Additionally will assist with any symptoms of palliative concern. . Attestation To help prompt me to consider important information that might be impacting today's encounter and assessment, information from prior notes written by myself or my colleagues may have been "brought forward" into today's note. My signature on this note, however, is an attestation that I personally performed the exam, history, and/or decision-making noted today, and, unless otherwise indicated, the interactions with patient, family, and staff as well as the review of records all occurred today. I also attest that the listed assessment and stated plan reflect my best clinical judgment today based on the combination of historical information, prior notes, and today's exam/ interactions. When time spent is documented, it refers only to time spent today by the signer, or if indicated, combined time spent today by collaborating physician/nurse practitioner. . Abigail Quigley Aug 09, 2017 10:52 am
[2017-08-09] MEDS: PROPOFOL 1000 MG/100 ML INJ 100 ML IV PRN ×2 (11:51→22:10)
[2017-08-09] MEDS: PANTOPRAZOLE SODIUM 40 MG VIAL IV PUSH SCH (11:58)
[2017-08-09] MEDS ORDERED: VANCOMYCIN INJ 1,350 MG in SODIUM CHLORID 0.9% 500 ML INJ 500 ML IV SCH (14:00)
--- NOTE | 2017-08-09 19:03 | HHI.CCPN ---
Subjective Remarks/Hospital Course 76-year-old pleasantly demented female, [facility] resident. The patient was noted earlier today to have a sudden onset of right gaze, as well as right- sided weakness. She was also found to be very hypotensive. Initial blood pressure 60/20, which responded to fluids and increased to 90/60. She presented to the hospital as a stroke-alert. The MRI of brain obtained in the emergency department showed only questionable tiny subacute lacunar infarcts posterior periventricular white matter. Moderate to severe chronic ischemic changes in the periventricular white matter. Remote left parietal lobe infarct. The CT of the abdomen and pelvis however shows the abnormal pancreas with enlargement and peripancreatic inflammation and edema characteristic of acute pancreatitis. Cholelithiasis without pancreatic duct dilatation. 6: Afebrile. Patient continues to have severe metabolic acidosis sodium bicarbonate infusion continued. Patient on nonrebreather continuing to be weaned down . Patient bolused with 500 cc normal saline 1 this a.m.. Oliguric 150 cc urine output in the last 12 hours. Unable to assess the amount of IV fluid patient was given in the ED and overnight. No hematemesis or melena this a.m. Patient continues on Protonix twice daily. Patient currently on nonrebreather mask currently being weaned down O2 saturation 100% though PaO2 is 155. Triglycerides are pending. MRI is pending. 2: Afebrile. Overnight patient became hemodynamically unstable, central line placed patient currently on Levophed 12 mcgs/min. The patient FIO2 requirements are increasing, intubation planned. Echo report last night showed RV mildly dilated with RV systolic function mildly decreased. Concern for possible PE, however patient not a candidate in the setting of GI Bleed. Hgb and Hct trend stable. Metabolic acidosis resolved with NaHCO3 infusion, now decreased. Patient 's SVV continued elevation and BUN 77. Pt bolused IVF's this am. UOP, creatinine slightly improved overnight. Electrolytes being replaced and closely monitored. Discussed with GI AKI Spence after her discussion with Dr. Sanchez this am plan is for MRCP today by GI or Invasive Radiology. --> report indicates stone in CBD without ductal dilatation 08/04 Off levophed, remainsn on neosynephrine 80 mcg/min. RLE u/s shows extensive RLE DVT. No BMs overnight. Discussed with gastroenterology, Dr. Sanchez, who agrees with starting heparin drip and monitor closely for bleeding. HIDA scan yesterday shows no evidence of obstruction. LFTS trending down so GI has canceled IR consult for percutaneous transhepatic biliary drain. Creatinine down trending and urine output improved. 08/05 Now weaned off neosynephrine, on levophed 9 mcg/min, RN states unable to wean. Started on heparin drip yesterday, no evidence of bleeding. LFTs continue downtrend. Okay to resume tube feeds per GI, but OGT was coiled in mouth and was repositioned, so will need to confirm position before initiating tube feeds. Palliative care assisting with finding family, no success so far. 08/06 Remains on levophed. CI 2.2,LVEF appears preserved on bedside ultrasound. Thirdspacing with anasarca. Not following commands today, clonus and rigidity noted so obtained stat CT brain which shows no acute changes. No fever. Holding neuroleptics/serotonergics. 08/07 Afebrile. WBC up to 33.9. Remains on levophed, requirement increased to 10 mcg/min. No BM since admission but had a large BM after bowel regimen given today, has been tolerating tube feeds. Not tolerating CPAP. Had clonus, rigidity and shaking of BLE with decreased responsiveness yesterday. CT brain negative. EEG mild encephalopathy. Suspected serotonin syndrome, now rigidity and clonus is resolved after stopping fentanyl, risperdal , zoloft. On low dose propofol. Still trying to find family. 08/08: Remains sedated, a little bit on mechanical ventilation. On Levophed 4 mics per minute. Worsening leukocytosis despite antibiotics and addition of antifungal therapy on 08/07. Subjective: 08/09 Off pressors today. WBC remains high in 30s. MRSA in sputum. Does not tolerate CPAP. Objective Vital Signs Date Time Temp Pulse Resp B/P (MAP) Pulse Ox O2 Delivery O2 Flow Rate FiO2 08/09/17 18:00 101 91/54 (66) 98/43 (61) 08/09/17 16:00 35 08/09/17 16:00 98.8 28 96 Intake and Output 08/09/17 08/09/17 08/10/17 08:00 16:00 00:00 Intake Total 910.6 ml Output Total 550 ml Balance 360.6 ml Result Diagram: 08/09/17 0408 08/09/17 0408 Other Results Microbiology Date/Time Source Procedure Growth Status 08/07/17 18:50 Sputum Endotracheal Gram Stain - Final Complete 08/07/17 18:50 Sputum Culture - Final S. Aureus Mrsa Complete 08/07/17 09:55 Urine Catheterized Urine Urine Culture - Final NO GROWTH IN 48 HOURS. Complete Imaging Last [address] 08/01/17 Signed Impressions: CONCLUSION: 1. No acute intracranial abnormality is identified. 2. However, there is encephalomalacia in the left parietal region and there is generalized atrophy with severe periventricular white matter low-attenuation c haracteristic of chronic microvascular ischemia. Chest X-Ray 08/01/17 Signed Impressions: CONCLUSION: Underinflated examination with small bilateral pleural effusions with compressi ve atelectasis at the lung bases. Carotid Artery Ultrasound 08/01/17 Signed Impressions: CONCLUSION: 1. Right Internal Carotid Artery: Findings indicate <50% stenosis. 2. Left Internal Carotid Artery: Findings indicate <50% stenosis. Abdomen/Pelvis CT 08/01/17 Signed Impressions: CONCLUSION: 1. The pancreas is abnormal with enlargement and peripancreatic inflammation a nd edema characteristic of acute pancreatitis. There is a small volume of free fluid in the abdomen and pelvis. 2. Cholelithiasis without pancreatic duct dilatation. 3. There is mild wall thickening of the inferior rectum with associated presac ral edema. 4. Small bilateral pleural effusions with associated compressive atelectasis. 5. There is a compression deformity of uncertain chronicity involving L3 and c ompression deformity with sclerosis involving T9. Objective Remarks GENERAL: This is an elderly, critically ill appearing female patient with anasarca , awakens on sedation and makes eye contact but not following commands. SKIN: No rashes, ecchymoses or lesions. HEAD: Atraumatic. Normocephalic. No temporal or scalp tenderness. EYES: Resists eye opening, pupils 2 mm equal round and reactive. Extraocular motions intact. No scleral icterus. No injection or drainage. NECK: Trachea midline. No JVD or lymphadenopathy. No meningismus CARDIOVASCULAR: Regular rate and rhythm with no m/r/g RESPIRATORY: Orotracheally intubated on mechanical ventilation. Coarse bilateral breath sounds, diminished at bases. GASTROINTESTINAL: Abdomen distended, mildly tympanitic, no appreciable tenderness. Bowel sounds hypoactive. : Mary in place MUSCULOSKELETAL: Extremities without clubbing, cyanosis. Anasarca. NEUROLOGICAL: Awakes to voice, makes eye contact. Moves extremities spontaneously but not following commands. Legs no longer rigid. No clonus. DTR 2 + patellar. Date of Insertion: Aug 02, 2017 Date of Insertion: Aug 03, 2017 A/P Assessment and Plan Plan by systems: Neurologic: Acute left lacunar stroke History of previous CVA Dementia Schizophrenia Depression 08/02 MRI-moderate to severe ischemic changes. Tiny subacute lacunar infarcts. Remote left parietal lobe infarct 08/02 MRA brain-negative 08/02-CT brain-no acute abnormality Carotids-<50% stenosis Patient is followed by neurology-Dr. Michelle Was not a candidate for TPA on admission due to acute GI bleed Rigidity and clonus ?serotonin syndrome, now improved after Holding zoloft , risperidone and fentanyl. EEG - mild encephalopathy, no seizure Respiratory: Acute hypoxemic respiratory failure Intubated 08/03 On PRVC. daily CPAP trial, not tolerating. She has anasarca but I am reticent to diurese when she appears to have recurrent sepsis and marginal blood pressures.. Duo nebs every 6 hours scheduled every 2 hours as needed Ventilator bundle 08/02 CT-small bilateral pleural effusions bases D-dimer elevated.-suspicion for PE given the echo results-unable to do CT angiogram due to acute kidney injury. Does have extensive right lower extremity DVT so needs anticoagulation. Has not had any further bleeding. Discussed with gastroenterology, Dr. Sanchez 08/04, and proceeded with anticoagulation with heparin Cardiovascular: Hypovolemic and septic shock secondary to acute pancreatitis Vasopressors were weaned off SBedside cardiac u/s hyperdynamic, appears septic and third-spacing. Cortisol 20. 08/02 echo-right ventricle mildly dilated. Right ventricular systolic function mildly decreased. EF 55-60% 08/03-troponin increased 0.03->0.27. Possibly secondary to acute kidney injury, infection. Conceivably could be related to PE but would not use TPA at this time anyway due to bleeding risk and she is not a candidate for CT pulmonary angiogram due to acute kidney injury. Cardiology has evaluated, Dr. Tang. He has not recommended any further ischemic workup and has signed off. Mild hypertriglyceridemia is not the etiology of pancreatitis. Is on gemfibrozil 600 mg p.o. twice daily Renal: Acute hypokalemia Acute hypophosphatemia Acute kidney injury Maintain Mary catheter -- Strict I/Os --Electrolyte replacement by protocol Follow-up CMP and phosphorus in the morning. Nephrology, Dr. Sheridan has now signed off. FEN/GI: Acute gallstone pancreatitis, resolved. Choledocholithiasis Dyslipidemia GI bleed, resolved Elevated liver enzymes Chronic moderate protein calorie malnutrition 08/02- 1700 S/P MRI-at least one stone in the common bile duct. Dr. Mahoney spoke with Dr. Sanchez made him aware of patient's result. 08/03: MRCP demonstrates gallstones with cysts CBD stone. No dilatation of CBD. Minimal gallbladder wall thickening with trace fluid 08/03 HIDA scanno evidence of cystic duct or distal common bile duct obstruction. Normal gallbladder ejection fraction. Lipase now normalized at 134. LFTs downtrending. It appears she has passed a stone. Protonix twice daily Rectal wall thickening on the CT In ED patient was noted to have bright red blood per rectum. Was transfused 2 units packed red cells 08/01. Has not had any further bleeding. GI is not planning to scope at this time. Recommended proceed with anticoagulation for extensive DVT and possible PE and monitor closely for evidence of bleeding. Repeat CT abdomen has been ordered. Jevity 1.5 20 cc/h, advance to goal rate 50/hr per nutrition recs. Heme: Acute blood loss anemia 2/2 GI bleed Persistent leukocytosis Extensive right lower extremity DVT Monitor CBC Transfuse for hemoglobin less than 7 Patient transfused 2 units packed red blood cells in the ED (08/01) Ultrasound bilateral lower extremity xtensive right lower extremity DVT including iliac vein and extending below the knee to the posterior tibial vein. Continue heparin drip. Initiated 08/04. Hgbs have been relatively stable. ID: Septic shock secondary to gallstone pancreatitis Has been on broad-spectrum antibiotics: Vancomycin, aztreonam, Flagyl since due to septic shock. Micafungin was added 08/07. She remains with significant leukocytosis. C. difficile is negative. CT abdomen and pelvis has been ordered. Endocrine: Hyperglycemia hemoglobin A1c 5.6 Glucose is not at target. Will increase to medium dose sliding scale every 4 hours Prophylaxis: GI Prophylaxis Protonix BID DVT Prophylaxis Heparin drip as per above Lines: Right IJ central venous line 08/02 #7. No longer on pressors so we will remove central line when able to obtain an additional peripheral IV. Right radial art line in place, no longer indicated, will discontinue. 08/07 palliative care updated brother, Davi Sood and code status changed to DNR as he states he will honor patients prior wishes expressed during last hospitalization. I provided additional update. He indicates he does not want any additional invasive procedures and therefore does not want CVL or art line replaced, no trach/PEG, no ERCP, etc. I contacted Davi 08/09 but there is no answer. Patient is critically ill and has been intubated for 9 days. She now has recurrent sepsis and now MRSA pneumonia and it appears inconceivable that she will be able to be extubated within a time frame that will allow avoidance of tracheostomy. She is not tolerating CPAP. Davi has previously indicated to me that she would not want to proceed with trach and PEG. Her overall prognosis appears poor and transition to comfort measures appears appropriate if that is in keeping with the decision of her healthcare proxy. Patient has previously indicated she desire DNR status during a prior hospitalization. Level 3 follow-up Fatuma Cotto MD Aug 09, 2017 19:03
[2017-08-09] MEDS ORDERED: GLUCAGON 1 MG/ML VIAL OTHER PRN (20:30)
[2017-08-09] MEDS ORDERED: DEXTROSE 50% IN WATER 50 ML VIAL(D50) IV PUSH PRN (20:30)
[2017-08-09] MEDS: MICAFUNGIN INJ 100 MG in SODIUM CHLORIDE 0.9% INJ 100 ML IV SCH (20:56)
[2017-08-09] MEDS: ZOLPIDEM TARTRATE 5 MG TAB PO SCH (20:57)
[2017-08-10] VITALS (25 sets, daily range): BP systolic 69–136; BP diastolic 41–83; PULSE 89–107; RESP 12–24; TEMP 98.8–99.9; O2SAT 95–100
[2017-08-10] MEDS: PANTOPRAZOLE SODIUM 40 MG VIAL IV PUSH SCH ×3 (00:37→23:16)
[2017-08-10] MEDS: INSULIN ASPART SUPPLEMENTAL SCALE SQ SCH ×7 (00:55→23:37)
[2017-08-10] MEDS: RESP: ALBUTEROL 2.5 MG/IPRATROPIUM 0.5 MG NEB (SCH) NEB ×6 (03:15→23:31)
[2017-08-10] MEDS: CHLORHEXIDINE GLUCONATE 2 % 1 PACK (2 CLOTHS) TOP SCH (04:00)
[2017-08-10] MEDS: AZTREONAM INJ 2,000 MG in SODIUM CHLORIDE 0.9% INJ 100 ML IV SCH ×3 (05:34→21:22)
[2017-08-10] MEDS: metroNIDAZOLE 500 MG INJ 100 ML IV SCH ×3 (05:38→22:14)
[2017-08-10] MEDS: GEMFIBROZIL 600 MG TAB PO SCH ×2 (05:48→16:55)
[2017-08-10 06:18] LABS: BASOPHIL # 0.1 TH/MM3 (0-0.2); BASOPHIL % 0.2 % (0.0-2.0); EOSINOPHIL # 0.1 TH/MM3 (0-0.4); EOSINOPHIL % 0.4 % (0.0-4.0); HEMATOCRIT 26.8 % (35.0-46.0); HEMOGLOBIN 8.6 GM/DL (11.6-15.3); LYMPH % 5.7 % (9.0-44.0); LYMPHOCYTE # 1.4 TH/MM3 (1.0-4.8); MEAN CORPUSCULAR HEMOGLOBIN 28.8 PG (27.0-34.0); MONO % 6.4 % (0.0-8.0); MONOCYTE # 1.6 TH/MM3 (0-0.9); NEUT % 87.3 % (16.0-70.0); PLATELET COUNT 376 TH/MM3 (150-450); RED BLOOD COUNT 2.98 MIL/MM3 (4.00-5.30); RED CELL DISTRIBUTION WIDTH 14.4 % (11.6-17.2); WHITE BLOOD COUNT 25.2 TH/MM3 (4.0-11.0)
[2017-08-10 07:31] LABS: ALBUMIN 1.2 GM/DL (3.4-5.0); BICARBONATE 21.8 MEQ/L (21.0-32.0); CALCIUM 6.7 MG/DL (8.5-10.1); CALCIUM-PROTEIN CORRECTED 7.6 MG/DL (8.5-10.1); CREATININE 0.75 MG/DL (0.50-1.00); TOTAL BILIRUBIN ADULT 0.2 MG/DL (0.2-1.0); TOTAL PROTEIN 5.3 GM/DL (6.4-8.2)
[2017-08-10 07:50] LABS: BANDS 1 % (0-6); LYMPHOCYTES 6 % (9-44); MONOCYTES 6 % (0-8); NEUTROPHIL # MANUAL DIFF 22.2 TH/MM3 (1.8-7.7); POLYS (SEG NEUTROPHILS) 87 % (16-70)
[2017-08-10] MEDS: DOCUSATE SODIUM 50 MG/SENNA 8.6 MG TAB PO SCH ×2 (09:12→20:17)
[2017-08-10] MEDS: SODIUM CHLORIDE 0.9% FLUSH 10 ML FLUSH IV FLUSH SCH ×2 (09:13→20:17)
[2017-08-10] MEDS: CHLORHEXIDINE 0.12% (ORAL KIT) 15 ML CUP MT SCH ×2 (09:14→20:32)
[2017-08-10] MEDS: PROPOFOL 1000 MG/100 ML INJ 100 ML IV PRN ×3 (13:25→22:15)
--- NOTE | 2017-08-10 16:32 | HHI.CCPN ---
Subjective Remarks/Hospital Course 76-year-old pleasantly demented female, group home resident. The patient was noted earlier today to have a sudden onset of right gaze, as well as right- sided weakness. She was also found to be very hypotensive. Initial blood pressure 60/20, which responded to fluids and increased to 90/60. She presented to the hospital as a stroke-alert. The MRI of brain obtained in the emergency department showed only questionable tiny subacute lacunar infarcts posterior periventricular white matter. Moderate to severe chronic ischemic changes in the periventricular white matter. Remote left parietal lobe infarct. The CT of the abdomen and pelvis however shows the abnormal pancreas with enlargement and peripancreatic inflammation and edema characteristic of acute pancreatitis. Cholelithiasis without pancreatic duct dilatation. 6: Afebrile. Patient continues to have severe metabolic acidosis sodium bicarbonate infusion continued. Patient on nonrebreather continuing to be weaned down . Patient bolused with 500 cc normal saline 1 this a.m.. Oliguric 150 cc urine output in the last 12 hours. Unable to assess the amount of IV fluid patient was given in the ED and overnight. No hematemesis or melena this a.m. Patient continues on Protonix twice daily. Patient currently on nonrebreather mask currently being weaned down O2 saturation 100% though PaO2 is 155. Triglycerides are pending. MRI is pending. 2: Afebrile. Overnight patient became hemodynamically unstable, central line placed patient currently on Levophed 12 mcgs/min. The patient FIO2 requirements are increasing, intubation planned. Echo report last night showed RV mildly dilated with RV systolic function mildly decreased. Concern for possible PE, however patient not a candidate in the setting of GI Bleed. Hgb and Hct trend stable. Metabolic acidosis resolved with NaHCO3 infusion, now decreased. Patient 's SVV continued elevation and BUN 77. Pt bolused IVF's this am. UOP, creatinine slightly improved overnight. Electrolytes being replaced and closely monitored. Discussed with GI AKI Spence after her discussion with Dr. Sanchez this am plan is for MRCP today by GI or Invasive Radiology. --> report indicates stone in CBD without ductal dilatation 08/04 Off levophed, remainsn on neosynephrine 80 mcg/min. RLE u/s shows extensive RLE DVT. No BMs overnight. Discussed with gastroenterology, Dr. Sanchez, who agrees with starting heparin drip and monitor closely for bleeding. HIDA scan yesterday shows no evidence of obstruction. LFTS trending down so GI has canceled IR consult for percutaneous transhepatic biliary drain. Creatinine down trending and urine output improved. 08/05 Now weaned off neosynephrine, on levophed 9 mcg/min, RN states unable to wean. Started on heparin drip yesterday, no evidence of bleeding. LFTs continue downtrend. Okay to resume tube feeds per GI, but OGT was coiled in mouth and was repositioned, so will need to confirm position before initiating tube feeds. Palliative care assisting with finding family, no success so far. 08/06 Remains on levophed. CI 2.2,LVEF appears preserved on bedside ultrasound. Thirdspacing with anasarca. Not following commands today, clonus and rigidity noted so obtained stat CT brain which shows no acute changes. No fever. Holding neuroleptics/serotonergics. 08/07 Afebrile. WBC up to 33.9. Remains on levophed, requirement increased to 10 mcg/min. No BM since admission but had a large BM after bowel regimen given today, has been tolerating tube feeds. Not tolerating CPAP. Had clonus, rigidity and shaking of BLE with decreased responsiveness yesterday. CT brain negative. EEG mild encephalopathy. Suspected serotonin syndrome, now rigidity and clonus is resolved after stopping fentanyl, risperdal , zoloft. On low dose propofol. Still trying to find family. 08/08: Remains sedated, a little bit on mechanical ventilation. On Levophed 4 mics per minute. Worsening leukocytosis despite antibiotics and addition of antifungal therapy on 08/07. 08/09 Off pressors today. WBC remains high in 30s. MRSA in sputum. Does not tolerate CPAP. Subjective: 08/10 Does not tolerate CPAP. Anasarca, will try to diurese. Objective Vital Signs Date Time Temp Pulse Resp B/P (MAP) Pulse Ox O2 Delivery O2 Flow Rate FiO2 08/10/17 16:05 98 35 08/10/17 14:00 98 08/10/17 12:00 99.0 13 90/50 (63) 111/54 (73) Intake and Output 08/10/17 08/10/17 08/11/17 08:00 16:00 00:00 Intake Total 856 ml 123 ml Output Total 400 ml Balance 456 ml 123 ml Result Diagram: 08/10/17 0513 08/10/17 0513 Other Results Microbiology Date/Time Source Procedure Growth Status 08/07/17 18:50 Sputum Endotracheal Gram Stain - Final Complete 08/07/17 18:50 Sputum Culture - Final S. Aureus Mrsa Complete Imaging Last [address] 08/01/17 Signed Impressions: CONCLUSION: 1. No acute intracranial abnormality is identified. 2. However, there is encephalomalacia in the left parietal region and there is generalized atrophy with severe periventricular white matter low-attenuation c haracteristic of chronic microvascular ischemia. Chest X-Ray 08/01/17 Signed Impressions: CONCLUSION: Underinflated examination with small bilateral pleural effusions with compressi ve atelectasis at the lung bases. Carotid Artery Ultrasound 08/01/17 Signed Impressions: CONCLUSION: 1. Right Internal Carotid Artery: Findings indicate <50% stenosis. 2. Left Internal Carotid Artery: Findings indicate <50% stenosis. Abdomen/Pelvis CT 08/01/17 Signed Impressions: CONCLUSION: 1. The pancreas is abnormal with enlargement and peripancreatic inflammation a nd edema characteristic of acute pancreatitis. There is a small volume of free fluid in the abdomen and pelvis. 2. Cholelithiasis without pancreatic duct dilatation. 3. There is mild wall thickening of the inferior rectum with associated presac ral edema. 4. Small bilateral pleural effusions with associated compressive atelectasis. 5. There is a compression deformity of uncertain chronicity involving L3 and c ompression deformity with sclerosis involving T9. Objective Remarks GENERAL: This is an elderly, critically ill appearing female patient with anasarca , awakens on sedation and makes eye contact but not following commands. SKIN: No rashes, ecchymoses or lesions. HEAD: Atraumatic. Normocephalic. No temporal or scalp tenderness. EYES: Resists eye opening, pupils 2 mm equal round and reactive. Extraocular motions intact. No scleral icterus. No injection or drainage. NECK: Trachea midline. No JVD or lymphadenopathy. No meningismus CARDIOVASCULAR: Regular rate and rhythm with no m/r/g RESPIRATORY: Orotracheally intubated on mechanical ventilation. Coarse bilateral breath sounds, diminished at bases. GASTROINTESTINAL: Abdomen distended, mildly tympanitic, no appreciable tenderness. Bowel sounds hypoactive. : Mary in place MUSCULOSKELETAL: Extremities without clubbing, cyanosis. Anasarca. NEUROLOGICAL: Awakes to voice, makes eye contact. Moves extremities spontaneously but not following commands. Legs no longer rigid. No clonus. DTR 2 + patellar. Date of Insertion: Aug 02, 2017 Date of Insertion: Aug 03, 2017 A/P Assessment and Plan Plan by systems: Neurologic: Acute left lacunar stroke History of previous CVA Dementia Schizophrenia Depression 08/02 MRI-moderate to severe ischemic changes. Tiny subacute lacunar infarcts. Remote left parietal lobe infarct 08/02 MRA brain-negative 08/02-CT brain-no acute abnormality Carotids-<50% stenosis Patient is followed by neurology-Dr. Michelle Was not a candidate for TPA on admission due to acute GI bleed Rigidity and clonus ?serotonin syndrome, now improved after Holding zoloft , risperidone and fentanyl. EEG - mild encephalopathy, no seizure Respiratory: Acute hypoxemic respiratory failure Intubated 08/03 On PRVC. daily CPAP trial, not tolerating. She has anasarca , will attempt to diurese. Not tolerating CPAP. Duo nebs every 6 hours scheduled every 2 hours as needed Ventilator bundle 08/02 CT-small bilateral pleural effusions bases D-dimer elevated.-suspicion for PE given the echo results-unable to do CT angiogram due to acute kidney injury. Does have extensive right lower extremity DVT so needs anticoagulation. Has not had any further bleeding. Discussed with gastroenterology, Dr. Sanchez 08/04, and proceeded with anticoagulation with heparin Cardiovascular: Hypovolemic and septic shock secondary to acute pancreatitis Vasopressors were weaned off SBedside cardiac u/s hyperdynamic, appears septic and third-spacing. Cortisol 20. 08/02 echo-right ventricle mildly dilated. Right ventricular systolic function mildly decreased. EF 55-60% 08/03-troponin increased 0.03->0.27. Possibly secondary to acute kidney injury, infection. Conceivably could be related to PE but would not use TPA at this time anyway due to bleeding risk and she is not a candidate for CT pulmonary angiogram due to acute kidney injury. Cardiology has evaluated, Dr. Tang. He has not recommended any further ischemic workup and has signed off. Mild hypertriglyceridemia is not the etiology of pancreatitis. Is on gemfibrozil 600 mg p.o. twice daily Renal: Acute hypokalemia Acute hypophosphatemia Acute kidney injury Maintain Mary catheter -- Strict I/Os --Electrolyte replacement by protocol Follow-up CMP and phosphorus in the morning. Nephrology, Dr. Sheridan has now signed off. FEN/GI: Acute gallstone pancreatitis, resolved. Choledocholithiasis Dyslipidemia GI bleed, resolved Elevated liver enzymes Chronic moderate protein calorie malnutrition 08/02- 1700 S/P MRI-at least one stone in the common bile duct. Dr. Mahoney spoke with Dr. Sanchez made him aware of patient's result. 08/03: MRCP demonstrates gallstones with cysts CBD stone. No dilatation of CBD. Minimal gallbladder wall thickening with trace fluid 08/03 HIDA scanno evidence of cystic duct or distal common bile duct obstruction. Normal gallbladder ejection fraction. Lipase now normalized at 134. LFTs downtrending. It appears she has passed a stone. Protonix twice daily Rectal wall thickening on the CT In ED patient was noted to have bright red blood per rectum. Was transfused 2 units packed red cells 08/01. Has not had any further bleeding. GI is not planning to scope at this time. Recommended proceed with anticoagulation for extensive DVT and possible PE and monitor closely for evidence of bleeding. Repeat CT abdomen has been ordered. Jevity 1.5 20 cc/h, advance to goal rate 50/hr per nutrition recs. Heme: Acute blood loss anemia 2/2 GI bleed Persistent leukocytosis Extensive right lower extremity DVT Monitor CBC Transfuse for hemoglobin less than 7 Patient transfused 2 units packed red blood cells in the ED (08/01) Ultrasound bilateral lower extremity 6/2Extensive right lower extremity DVT including iliac vein and extending below the knee to the posterior tibial vein. Continue heparin drip. Initiated 08/04. Hgbs have been relatively stable. ID: Septic shock secondary to gallstone pancreatitis Has been on broad-spectrum antibiotics: Vancomycin, aztreonam, Flagyl since due to septic shock. Micafungin was added 08/07. She remains with significant leukocytosis. C. difficile is negative. CT abdomen and pelvis has been ordered. Endocrine: Hyperglycemia hemoglobin A1c 5.6 Glucose is not at target. Will increase to medium dose sliding scale every 4 hours Prophylaxis: GI Prophylaxis Protonix BID DVT Prophylaxis Heparin drip as per above Lines: Right IJ central venous line 08/02 #9. No longer on pressors so requested removal central line but was not removed overnight due to hypotension, will remove today. when able to obtain an additional peripheral IV. Right radial art line in place 08/07 palliative care updated brother, Davi Sood and code status changed to DNR as he states he will honor patients prior wishes expressed during last hospitalization. I provided additional update. He indicates he does not want any additional invasive procedures and therefore does not want CVL or art line replaced, no trach/PEG, no ERCP, etc. I contacted Davi 08/09 but there is no answer. Patient is critically ill and has been intubated for 9 days. She now has recurrent sepsis and now MRSA pneumonia and it appears inconceivable that she will be able to be extubated within a time frame that will allow avoidance of tracheostomy. She is not tolerating CPAP. Davi has previously indicated to me that she would not want to proceed with trach and PEG. Her overall prognosis appears poor and transition to comfort measures appears appropriate if that is in keeping with the decision of her healthcare proxy. Patient has previously indicated she desire DNR status during a prior hospitalization. I again contacted Davi 08/10. No answer, left message to call hospital. Level 3 follow-up Fatuma Cotto MD Aug 10, 2017 16:32
[2017-08-10] MEDS: VANCOMYCIN INJ 1,250 MG in SODIUM CHLOR 0.9% 250 ML INJ 250 ML IV SCH (16:54)
[2017-08-10] MEDS: FUROSEMIDE 20 MG/2 ML VIAL IV PUSH SCH ×2 (16:54→23:15)
[2017-08-10] MEDS: ALBUMIN 25% INJ 50 ML IV SCH ×2 (16:55→23:16)
[2017-08-10] MEDS ORDERED: VANCOMYCIN INJ 1,400 MG in SODIUM CHLORID 0.9% 500 ML INJ 500 ML IV SCH (17:00)
[2017-08-10] MEDS: MICAFUNGIN INJ 100 MG in SODIUM CHLORIDE 0.9% INJ 100 ML IV SCH (20:16)
[2017-08-10] MEDS: ZOLPIDEM TARTRATE 5 MG TAB PO SCH (20:17)
[2017-08-10] MEDS: POTASSIUM CHLORIDE 25 MEQ EFFERVESCENT TAB NG SCH (20:17)
--- NOTE | 2017-08-10 21:08 | HHI.IDPN ---
Subjective Subjective Remarks remains on vent + secreions sputum + for MRSa diarrhea with stool negative for C.diff WBC down to 25 K Antibiotics azctam flagyl vancomycin Allergies: Coded Allergies: aspirin (Unverified Allergy, Severe, 10/16/16) PT HAS TINNITUS penicillin G (Unverified Allergy, Severe, 10/16/16) Objective . Vital Signs Date Time Temp Pulse Resp B/P (MAP) Pulse Ox O2 Delivery O2 Flow Rate FiO2 08/10/17 18:00 96 100/50 (67) 121/55 (77) 08/10/17 18:00 96 08/10/17 16:53 99.0 94 14 95/54 (68) 100 126/60 (82) 08/10/17 16:05 98 35 08/10/17 16:00 35 08/10/17 16:00 98 21 128/62 (84) 98 08/10/17 16:00 94 08/10/17 15:00 93 14 90/54 (66) 98 125/59 (81) 08/10/17 14:01 100 24 108/83 (91) 97 136/71 (92) 08/10/17 14:00 98 24 124/65 (84) 97 08/10/17 14:00 98 08/10/17 13:00 95 12 86/46 (59) 98 113/55 (74) 08/10/17 12:00 99.0 97 13 90/50 (63) 97 111/54 (73) 08/10/17 12:00 35 08/10/17 12:00 97 08/10/17 11:28 100 35 08/10/17 11:00 95 15 90/54 (66) 97 120/57 (78) 08/10/17 10:00 101 08/10/17 10:00 101 17 90/44 (59) 96 107/54 (71) 08/10/17 09:00 97 13 104/48 (66) 95 106/48 (67) 08/10/17 08:41 97 35 08/10/17 08:00 35 08/10/17 08:00 99.2 94 14 97/50 (66) 96 115/55 (75) 08/10/17 08:00 94 08/10/17 07:00 97 13 97/47 (64) 96 108/50 (69) 08/10/17 06:00 101 106/48 (67) 101/49 (66) 08/10/17 06:00 100 08/10/17 04:04 100 35 08/10/17 04:00 107 08/10/17 04:00 35 08/10/17 04:00 99.9 107 18 69/41 (50) 95 101/47 (65) 08/10/17 02:00 102 08/10/17 00:00 35 08/10/17 00:00 101 08/10/17 00:00 98.8 101 13 69/42 (51) 95 111/49 (69) 08/09/17 23:19 96 35 08/09/17 22:00 100 08/10/17 08/10/17 08/11/17 15:00 23:00 07:00 Intake Total 223 ml 845.5 ml Output Total 650 ml Balance 223 ml 195.5 ml IV Total 223 ml 312.5 ml Tube Feeding 473 ml Tube Irrigant 60 ml Output Urine Total 650 ml # Bowel Movements 2 . Laboratory Tests Test 08/09/17 04:08 08/10/17 05:13 White Blood Count 30.8 TH/MM3 25.2 TH/MM3 Red Blood Count 3.07 MIL/MM3 2.98 MIL/MM3 Hemoglobin 8.8 GM/DL 8.6 GM/DL Hematocrit 27.6 % 26.8 % Mean Corpuscular Volume 89.9 FL 90.0 FL Mean Corpuscular Hemoglobin 28.8 PG 28.8 PG Mean Corpuscular Hemoglobin Concent 32.0 % 32.0 % Red Cell Distribution Width 14.2 % 14.4 % Platelet Count 295 TH/MM3 376 TH/MM3 Mean Platelet Volume 9.2 FL 9.0 FL CBC Comment AUTO DIFF AUTO DIFF Differential Total Cells Counted 100 100 Neutrophils % (Manual) 83 % 87 % Band Neutrophils % 7 % 1 % Lymphocytes % 3 % 6 % Monocytes % 2 % 6 % Eosinophils % 1 % Neutrophils # (Manual) 29.0 TH/MM3 22.2 TH/MM3 Metamyelocytes 4 % Differential Comment FINAL DIFF MANUAL FINAL DIFF MANUAL Toxic Granulation 1+ Platelet Estimate NORMAL NORMAL Platelet Morphology Comment NORMAL NORMAL Neutrophils (%) (Auto) 87.3 % Lymphocytes (%) (Auto) 5.7 % Monocytes (%) (Auto) 6.4 % Eosinophils (%) (Auto) 0.4 % Basophils (%) (Auto) 0.2 % Neutrophils # (Auto) 22.0 TH/MM3 Lymphocytes # (Auto) 1.4 TH/MM3 Monocytes # (Auto) 1.6 TH/MM3 Eosinophils # (Auto) 0.1 TH/MM3 Basophils # (Auto) 0.1 TH/MM3 Red Cell Morphology Comment NORMAL Laboratory Tests Test 08/09/17 04:08 08/10/17 05:13 Blood Urea Nitrogen 30 MG/DL 30 MG/DL Creatinine 0.80 MG/DL 0.75 MG/DL Random Glucose 243 MG/DL 217 MG/DL Total Protein 4.9 GM/DL 5.3 GM/DL Albumin 1.2 GM/DL 1.2 GM/DL Calcium Level 7.0 MG/DL 6.7 MG/DL Alkaline Phosphatase 81 U/L 75 U/L Aspartate Amino Transf (AST/SGOT) 13 U/L 13 U/L Alanine Aminotransferase (ALT/SGPT) 21 U/L 18 U/L Total Bilirubin 0.2 MG/DL 0.2 MG/DL Sodium Level 145 MEQ/L 147 MEQ/L Potassium Level 4.1 MEQ/L 3.6 MEQ/L Chloride Level 113 MEQ/L 115 MEQ/L Carbon Dioxide Level 22.1 MEQ/L 21.8 MEQ/L Anion Gap 10 MEQ/L 10 MEQ/L Estimat Glomerular Filtration Rate 69 ML/MIN 75 ML/MIN Protein Corrected Calcium 8.2 MG/DL 7.6 MG/DL Microbiology Date/Time Source Procedure Growth Status 08/08/17 04:23 Blood Peripheral Aerobic Blood Culture - Preliminary NO GROWTH IN 2 DAYS Resulted 08/08/17 04:23 Blood Peripheral Anaerobic Blood Culture - Preliminary NO GROWTH IN 2 DAYS Resulted 08/08/17 04:18 Blood Peripheral Aerobic Blood Culture - Preliminary NO GROWTH IN 2 DAYS Resulted 08/08/17 04:18 Blood Peripheral Anaerobic Blood Culture - Preliminary NO GROWTH IN 2 DAYS Resulted Imaging Last Impressions Chest X-Ray 08/08/17 0000 Signed Impressions: CONCLUSION: 1. Small bilateral pleural effusions with mild atelectasis versus consolidatio n at the lung bases. 2. Tubes and lines appear stable. Head CT 08/06/17 0000 Signed Impressions: CONCLUSION: 1. 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 No evidence of hemorrhage or acute m ass effect. Diffuse atrophy. Abdomen X-Ray 6/4/18 0000 Signed Impressions: CONCLUSION: OG tube tip in proximal stomach. Mild basilar airspace disease with small left effusion. Lower Extremity Ultrasound 08/03/17 Signed Impressions: CONCLUSION: 1. Extensive DVT of the right lower extremity. 2. No venous thrombosis of the left lower extremity. Hepatobiliary Scan Nuclear Medicine 08/03/17 Signed Impressions: CONCLUSION: 1. No evidence of cystic duct or distal common bile duct obstruction. 2. Normal gallbladder ejection fraction. Cholangiopancreatography MRI 08/02/17 Signed Impressions: CONCLUSION: 1. Gallstones with at least one stone in the common duct 2. Pancreas poorly visualized because of motion. 3. Fluid present in the lesser sac consistent with pancreatitis. Head Magnetic Resonance Angiography 08/01/17 Signed Impressions: CONCLUSION: 1. Negative MRA [place] ([place]) non contrast. Carotid Artery Ultrasound 08/01/17 Signed Impressions: CONCLUSION: 1. Right Internal Carotid Artery: Findings indicate <50% stenosis. 2. Left Internal Carotid Artery: Findings indicate <50% stenosis. Brain MRI 08/01/17 Signed Impressions: CONCLUSION: 1. Questionable tiny subacute lacunar infarcts posterior periventricular white matter. Moderate to severe chronic ischemic changes in the periventricular whi te matter. Remote left parietal lobe infarct. Abdomen/Pelvis CT 08/01/17 Signed Impressions: CONCLUSION: 1. The pancreas is abnormal with enlargement and peripancreatic inflammation a nd edema characteristic of acute pancreatitis. There is a small volume of free fluid in the abdomen and pelvis. 2. Cholelithiasis without pancreatic duct dilatation. 3. There is mild wall thickening of the inferior rectum with associated presac ral edema. 4. Small bilateral pleural effusions with associated compressive atelectasis. 5. There is a compression deformity of uncertain chronicity involving L3 and c ompression deformity with sclerosis involving T9. Physical Exam CONSTITUTIONAL/GENERAL: This is an adequately nourished patient, in no apparent distress.Sedated. Intubated TUBES/LINES/DRAINS: SKIN: No jaundice, rashes, or lesions. Ecchymoses on upper extremities. No wounds seen anteriorly. Skin temperature appropriate. Not diaphoretic. EYES: Pupils equal and round and reactive. Extraocular motions intact. No scleral icterus. No injection or drainage. Fundi not examined. ENT: Hearing not tested Nose without bleeding or purulent drainage. Throat without visible erythema, exudates, masses, or lesions. CARDIOVASCULAR: Regular rate and rhythm without murmurs, gallops, or rubs. No JVD. Peripheral pulses symmetric. RESPIRATORY/CHEST: Symmetric, unlabored respirations. Clear to auscultation. Breath diminished b/b bilaterally. No wheezes, rales, or rhonchi. GASTROINTESTINAL: Abdomen tight and very distended. No reaction to palpation No hepato-splenomegaly, or palpable masses. No guarding. Bowel sounds present. Incontinent of liquid stool GENITOURINARY: Without palpable bladder distension. Mary catheter in place with adequatre amount of yellow urine MUSCULOSKELETAL: Extremities without clubbing, cyanosis, Massive tight BLE 4+ edema. No joint tenderness or effusion noted. No calf tenderness. No mottling or clubbing. NEUROLOGICAL: Sedated. Follows when off PSYCHIATRIC: unable to assess Assessment & Plan Remarks Assessment and Plan Severe pancreatitis Multi- organ failure Leukocytosis, leukemoid reaction - slightly improved Severe ileus, now diarrhea - C.diff negative Critically ill unstable MRSA in sputum , infiltrates 2/2 fluid overload, less liekly PNA Fluid overload - severe hypoalbunemia cont azactam , flagyl, vanco monitor WBC fu P blood clx will consider to repeat abd/pel scan Discussed Condition With Myranda Loco MD Aug 10, 2017 21:08
[2017-08-11] VITALS (26 sets, daily range): BP systolic 82–157; BP diastolic 42–69; PULSE 94–110; RESP 13–22; TEMP 98.7–99.7; O2SAT 95–100
[2017-08-11] MEDS: CHLORHEXIDINE GLUCONATE 2 % 1 PACK (2 CLOTHS) TOP SCH (03:21)
[2017-08-11] MEDS: RESP: ALBUTEROL 2.5 MG/IPRATROPIUM 0.5 MG NEB (SCH) NEB ×5 (04:28→20:25)
[2017-08-11 04:35] LABS: AUTOMATED NEUTROPHIL # 16.7 TH/MM3 (1.8-7.7); BASOPHIL % 0.2 % (0.0-2.0); EOSINOPHIL # 0.1 TH/MM3 (0-0.4); EOSINOPHIL % 0.4 % (0.0-4.0); HEMATOCRIT 23.8 % (35.0-46.0); HEMOGLOBIN 7.7 GM/DL (11.6-15.3); LYMPHOCYTE # 0.9 TH/MM3 (1.0-4.8); MEAN CELL VOLUME 90.8 FL (80.0-100.0); MEAN CORPUSCULAR HEMOGLOBIN 29.5 PG (27.0-34.0); MEAN CORPUSCULAR HGB CONC 32.5 % (32.0-36.0); MONO % 5.7 % (0.0-8.0); MONOCYTE # 1.1 TH/MM3 (0-0.9); NEUT % 88.7 % (16.0-70.0); PLATELET COUNT 381 TH/MM3 (150-450); RED BLOOD COUNT 2.62 MIL/MM3 (4.00-5.30); RED CELL DISTRIBUTION WIDTH 14.4 % (11.6-17.2); WHITE BLOOD COUNT 18.9 TH/MM3 (4.0-11.0)
[2017-08-11 04:52] LABS: CALCIUM 6.9 MG/DL (8.5-10.1); CREATININE 0.7 MG/DL (0.50-1.00)
[2017-08-11 05:07] LABS: CALCIUM-PROTEIN CORRECTED 7.8 MG/DL (8.5-10.1); TOTAL PROTEIN 5.4 GM/DL (6.4-8.2)
[2017-08-11] MEDS: GEMFIBROZIL 600 MG TAB PO SCH ×2 (05:43→16:44)
[2017-08-11] MEDS: metroNIDAZOLE 500 MG INJ 100 ML IV SCH ×3 (05:44→20:39)
[2017-08-11] MEDS: PROPOFOL 1000 MG/100 ML INJ 100 ML IV PRN ×2 (05:44→17:17)
[2017-08-11] MEDS: AZTREONAM INJ 2,000 MG in SODIUM CHLORIDE 0.9% INJ 100 ML IV SCH ×3 (05:47→21:58)
[2017-08-11] MEDS: INSULIN ASPART SUPPLEMENTAL SCALE SQ SCH ×5 (05:54→20:38)
[2017-08-11] MEDS: DOCUSATE SODIUM 50 MG/SENNA 8.6 MG TAB PO SCH ×2 (08:26→20:39)
[2017-08-11] MEDS: CHLORHEXIDINE 0.12% (ORAL KIT) 15 ML CUP MT SCH ×2 (08:26→20:40)
[2017-08-11] MEDS: FUROSEMIDE 20 MG/2 ML VIAL IV PUSH SCH ×2 (08:26→16:44)
[2017-08-11] MEDS: POTASSIUM CHLORIDE 25 MEQ EFFERVESCENT TAB NG SCH (08:26)
[2017-08-11] MEDS: INSULIN DETEMIR 100 UNITS/ML VIAL SQ SCH ×2 (08:27→20:39)
[2017-08-11] MEDS: ALBUMIN 25% INJ 50 ML IV SCH ×2 (08:27→16:44)
[2017-08-11] MEDS: SODIUM CHLORIDE 0.9% FLUSH 10 ML FLUSH IV FLUSH SCH ×2 (08:27→20:40)
[2017-08-11] MEDS: PANTOPRAZOLE SODIUM 40 MG VIAL IV PUSH SCH (12:35)
[2017-08-11] MEDS: VANCOMYCIN INJ 1,250 MG in SODIUM CHLOR 0.9% 250 ML INJ 250 ML IV SCH (16:44)
[2017-08-11] MEDS: MICAFUNGIN INJ 100 MG in SODIUM CHLORIDE 0.9% INJ 100 ML IV SCH (20:39)
[2017-08-11] MEDS: ZOLPIDEM TARTRATE 5 MG TAB PO SCH (20:39)
--- NOTE | 2017-08-11 21:29 | HHI.CCPN ---
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 The patient was noted earlier today to have a sudden onset of right gaze, as well as right- sided weakness. She was also found to be very hypotensive. Initial blood pressure 60/20, which responded to fluids and increased to 90/60. She presented to the hospital as a stroke-alert. The MRI of brain obtained in the emergency department showed only questionable tiny subacute lacunar infarcts posterior periventricular white matter. Moderate to severe chronic ischemic changes in the periventricular white matter. Remote left parietal lobe infarct. The CT of the abdomen and pelvis however shows the abnormal pancreas with enlargement and peripancreatic inflammation and edema characteristic of acute pancreatitis. Cholelithiasis without pancreatic duct dilatation. 6: Afebrile. Patient continues to have severe metabolic acidosis sodium bicarbonate infusion continued. Patient on nonrebreather continuing to be weaned down . Patient bolused with 500 cc normal saline 1 this a.m.. Oliguric 150 cc urine output in the last 12 hours. Unable to assess the amount of IV fluid patient was given in the ED and overnight. No hematemesis or melena this a.m. Patient continues on Protonix twice daily. Patient currently on nonrebreather mask currently being weaned down O2 saturation 100% though PaO2 is 155. Triglycerides are pending. MRI is pending. 2: Afebrile. Overnight patient became hemodynamically unstable, central line placed patient currently on Levophed 12 mcgs/min. The patient FIO2 requirements are increasing, intubation planned. Echo report last night showed RV mildly dilated with RV systolic function mildly decreased. Concern for possible PE, however patient not a candidate in the setting of GI Bleed. Hgb and Hct trend stable. Metabolic acidosis resolved with NaHCO3 infusion, now decreased. Patient 's SVV continued elevation and BUN 77. Pt bolused IVF's this am. UOP, creatinine slightly improved overnight. Electrolytes being replaced and closely monitored. Discussed with GI AKI Spence after her discussion with Dr. Sanchez this am plan is for MRCP today by GI or Invasive Radiology. --> report indicates stone in CBD without ductal dilatation 08/04 Off levophed, remainsn on neosynephrine 80 mcg/min. RLE u/s shows extensive RLE DVT. No BMs overnight. Discussed with gastroenterology, Dr. Sanchez, who agrees with starting heparin drip and monitor closely for bleeding. HIDA scan yesterday shows no evidence of obstruction. LFTS trending down so GI has canceled IR consult for percutaneous transhepatic biliary drain. Creatinine down trending and urine output improved. 08/05 Now weaned off neosynephrine, on levophed 9 mcg/min, RN states unable to wean. Started on heparin drip yesterday, no evidence of bleeding. LFTs continue downtrend. Okay to resume tube feeds per GI, but OGT was coiled in mouth and was repositioned, so will need to confirm position before initiating tube feeds. Palliative care assisting with finding family, no success so far. 08/06 Remains on levophed. CI 2.2,LVEF appears preserved on bedside ultrasound. Thirdspacing with anasarca. Not following commands today, clonus and rigidity noted so obtained stat CT brain which shows no acute changes. No fever. Holding neuroleptics/serotonergics. 08/07 Afebrile. WBC up to 33.9. Remains on levophed, requirement increased to 10 mcg/min. No BM since admission but had a large BM after bowel regimen given today, has been tolerating tube feeds. Not tolerating CPAP. Had clonus, rigidity and shaking of BLE with decreased responsiveness yesterday. CT brain negative. EEG mild encephalopathy. Suspected serotonin syndrome, now rigidity and clonus is resolved after stopping fentanyl, risperdal , zoloft. On low dose propofol. Still trying to find family. 08/08: Remains sedated, a little bit on mechanical ventilation. On Levophed 4 mics per minute. Worsening leukocytosis despite antibiotics and addition of antifungal therapy on 08/07. 08/09 Off pressors today. WBC remains high in 30s. MRSA in sputum. Does not tolerate CPAP. 08/10 Fails CPAP Anasarca, will try to diurese. Subjective: 08/11 Fails CPAP 15/5 within minutes with RSBI >110 . UOP increased with efforts to diurese with albumin/lasix, though did not achieve negative 24 hour balance. BP drops intermittently. Multiple attempts to call her brother this weekend, left messages, not able to reach him. He previously indicated he did not want trach/PEG. Trach/PEG is necessary for ongoing aggressive care. Would be appropriate to transition to comfort measures at this point, which also seems congruent with patient's previously expressed wishes. Objective Vital Signs Date Time Temp Pulse Resp B/P (MAP) Pulse Ox O2 Delivery O2 Flow Rate FiO2 08/11/17 20:25 98 35 08/11/17 20:00 104 08/11/17 18:00 94/53 (67) 117/47 (70) 08/11/17 17:00 17 08/11/17 16:00 98.7 Intake and Output 08/11/17 08/11/17 08/12/17 08:00 16:00 00:00 Intake Total 952 ml 250 ml 1084.5 ml Output Total 1100 ml 850 ml Balance -148 ml 250 ml 234.5 ml Result Diagram: 08/11/17 0339 08/11/17 0339 Imaging Last [address] 08/01/17 0000 Signed Impressions: CONCLUSION: 1. No acute intracranial abnormality is identified. 2. However, there is encephalomalacia in the left parietal region and there is generalized atrophy with severe periventricular white matter low-attenuation c haracteristic of chronic microvascular ischemia. Chest X-Ray 08/01/17 0000 Signed Impressions: CONCLUSION: Underinflated examination with small bilateral pleural effusions with compressi ve atelectasis at the lung bases. Carotid Artery Ultrasound 08/01/17 0000 Signed Impressions: CONCLUSION: 1. Right Internal Carotid Artery: Findings indicate <50% stenosis. 2. Left Internal Carotid Artery: Findings indicate <50% stenosis. Abdomen/Pelvis CT 08/01/17 0000 Signed Impressions: CONCLUSION: 1. The pancreas is abnormal with enlargement and peripancreatic inflammation a nd edema characteristic of acute pancreatitis. There is a small volume of free fluid in the abdomen and pelvis. 2. Cholelithiasis without pancreatic duct dilatation. 3. There is mild wall thickening of the inferior rectum with associated presac ral edema. 4. Small bilateral pleural effusions with associated compressive atelectasis. 5. There is a compression deformity of uncertain chronicity involving L3 and c ompression deformity with sclerosis involving T9. Objective Remarks GENERAL: This is an elderly, critically ill appearing female patient with anasarca , awakens on sedation and makes eye contact but not following commands. SKIN: No rashes, ecchymoses or lesions. HEAD: Atraumatic. Normocephalic. No temporal or scalp tenderness. EYES: Resists eye opening, pupils 2 mm equal round and reactive. Extraocular motions intact. No scleral icterus. No injection or drainage. NECK: Trachea midline. No JVD or lymphadenopathy. No meningismus CARDIOVASCULAR: Regular rate and rhythm with no m/r/g RESPIRATORY: Orotracheally intubated on mechanical ventilation. Coarse bilateral breath sounds, diminished at bases. GASTROINTESTINAL: Abdomen distended, mildly tympanitic, no appreciable tenderness. Bowel sounds hypoactive. : Mary in place MUSCULOSKELETAL: Extremities without clubbing, cyanosis. Anasarca. NEUROLOGICAL: Awakes to voice, makes eye contact. Moves extremities spontaneously but not following commands. Legs no longer rigid. No clonus. DTR 2 + patellar. Date of Insertion: Aug 02, 2017 Date of Insertion: Aug 03, 2017 A/P Assessment and Plan Plan by systems: Neurologic: Acute left lacunar stroke History of previous CVA Dementia Schizophrenia Depression 08/02 MRI-moderate to severe ischemic changes. Tiny subacute lacunar infarcts. Remote left parietal lobe infarct 08/02 MRA brain-negative 08/02-CT brain-no acute abnormality Carotids-<50% stenosis Patient is followed by neurology-Dr. Michelle Was not a candidate for TPA on admission due to acute GI bleed Rigidity and clonus ?serotonin syndrome, now improved after Holding zoloft , risperidone and fentanyl. EEG - mild encephalopathy, no seizure Respiratory: Acute hypoxemic respiratory failure Intubated 08/03 On PRVC. daily CPAP trial, not tolerating. She has anasarca , still attempting to diurese. Not tolerating CPAP, Would have to have trach if ongoing aggressive care desired but her brother has said he intends to honor her prior wishes and would not want trach. However, unable to reach him for several days regarding possible transition to comfort. Duo nebs every 6 hours scheduled every 2 hours as needed Ventilator bundle 08/02 CT-small bilateral pleural effusions bases D-dimer elevated.-suspicion for PE given the echo results-unable to do CT angiogram due to acute kidney injury. Does have extensive right lower extremity DVT so needs anticoagulation. Has not had any further bleeding. Discussed with gastroenterology, Dr. Sanchez 08/04, and proceeded with anticoagulation with heparin Cardiovascular: Hypovolemic and septic shock secondary to acute pancreatitis Vasopressors were weaned off SBedside cardiac u/s hyperdynamic, appears septic and third-spacing. Cortisol 20. 08/02 echo-right ventricle mildly dilated. Right ventricular systolic function mildly decreased. EF 55-60% 08/03-troponin increased 0.03->0.27. Possibly secondary to acute kidney injury, infection. Conceivably could be related to PE but would not use TPA at this time anyway due to bleeding risk and she is not a candidate for CT pulmonary angiogram due to acute kidney injury. Cardiology has evaluated, Dr. Tang. He has not recommended any further ischemic workup and has signed off. Mild hypertriglyceridemia is not the etiology of pancreatitis. Is on gemfibrozil 600 mg p.o. twice daily Renal: Acute hypokalemia Acute hypophosphatemia Acute kidney injury Maintain Mary catheter -- Strict I/Os --Electrolyte replacement by protocol Follow-up CMP and phosphorus in the morning. Nephrology, Dr. Sheridan has now signed off. FEN/GI: Acute gallstone pancreatitis, resolved. Choledocholithiasis Dyslipidemia GI bleed, resolved Elevated liver enzymes Chronic moderate protein calorie malnutrition 08/02- 1700 S/P MRI-at least one stone in the common bile duct. Dr. Mahoney spoke with Dr. Sanchez made him aware of patient's result. 08/03: MRCP demonstrates gallstones with cysts CBD stone. No dilatation of CBD. Minimal gallbladder wall thickening with trace fluid 08/03 HIDA scanno evidence of cystic duct or distal common bile duct obstruction. Normal gallbladder ejection fraction. Lipase now normalized at 134. LFTs downtrending. It appears she has passed a stone. Protonix twice daily Rectal wall thickening on the CT In ED patient was noted to have bright red blood per rectum. Was transfused 2 units packed red cells 08/01. Has not had any further bleeding. GI is not planning to scope at this time. Recommended proceed with anticoagulation for extensive DVT and possible PE and monitor closely for evidence of bleeding. Repeat CT abdomen has been ordered. Jevity 1.5 at goal rate 50/hr per nutrition recs. Heme: Acute blood loss anemia 2/2 GI bleed Persistent leukocytosis Extensive right lower extremity DVT Monitor CBC Transfuse for hemoglobin less than 7 Patient transfused 2 units packed red blood cells in the ED (08/01) Ultrasound bilateral lower extremity 6/2Extensive right lower extremity DVT including iliac vein and extending below the knee to the posterior tibial vein. Continue heparin drip. Initiated 08/04. Hgbs have been relatively stable. Could transition to lovenox ID: Septic shock secondary to gallstone pancreatitis Has been on broad-spectrum antibiotics: Vancomycin, aztreonam, Flagyl since due to septic shock. Micafungin was added 08/07. She remains with significant leukocytosis. C. difficile is negative. CT abdomen and pelvis has been ordered. Endocrine: Hyperglycemia hemoglobin A1c 5.6 Glucose is not at target. Will increase to medium dose sliding scale every 4 hours Prophylaxis: GI Prophylaxis Protonix BID DVT Prophylaxis Heparin drip as per above Lines: Right IJ central venous line 08/02 #10, has not been removed because brother refused consent for replacement. We will remove art line today and use NIBP 08/07 palliative care updated brother, Davi Sood and code status changed to DNR as he states he will honor patients prior wishes expressed during last hospitalization. I provided additional update. He indicates he does not want any additional invasive procedures and therefore does not want CVL or art line replaced, no trach/PEG, no ERCP, etc. I contacted Davi 08/09 but there is no answer. Patient is critically ill and has been intubated for 9 days. She now has recurrent sepsis and now MRSA pneumonia and it appears inconceivable that she will be able to be extubated within a time frame that will allow avoidance of tracheostomy. She is not tolerating CPAP. Davi has previously indicated to me that she would not want to proceed with trach and PEG. Her overall prognosis appears poor and transition to comfort measures appears appropriate if that is in keeping with the decision of her healthcare proxy. Patient has previously indicated she desire DNR status during a prior hospitalization. I again contacted Davi 08/10, 08/11. No answer, left message to call hospital. Level 2 follow-up Fatuma Cotto MD Aug 11, 2017 21:29
[2017-08-12] VITALS (37 sets, daily range): BP systolic 93–169; BP diastolic 47–82; PULSE 83–107; RESP 12–26; TEMP 98.1–99.4; O2SAT 98–100
[2017-08-12] MEDS: RESP: ALBUTEROL 2.5 MG/IPRATROPIUM 0.5 MG NEB (SCH) NEB ×6 (00:03→23:19)
[2017-08-12] MEDS: ALBUMIN 25% INJ 50 ML IV SCH ×3 (00:16→17:08)
[2017-08-12] MEDS: PANTOPRAZOLE SODIUM 40 MG VIAL IV PUSH SCH ×2 (00:16→11:00)
[2017-08-12] MEDS: INSULIN ASPART SUPPLEMENTAL SCALE SQ SCH ×6 (00:16→20:30)
[2017-08-12] MEDS: FUROSEMIDE 20 MG/2 ML VIAL IV PUSH SCH ×3 (00:26→21:59)
[2017-08-12] MEDS: PROPOFOL 1000 MG/100 ML INJ 100 ML IV PRN ×3 (01:20→21:58)
[2017-08-12] MEDS: CHLORHEXIDINE GLUCONATE 2 % 1 PACK (2 CLOTHS) TOP SCH (04:00)
[2017-08-12] MEDS: metroNIDAZOLE 500 MG INJ 100 ML IV SCH ×3 (05:09→22:00)
[2017-08-12] MEDS: AZTREONAM INJ 2,000 MG in SODIUM CHLORIDE 0.9% INJ 100 ML IV SCH ×3 (05:10→22:00)
[2017-08-12 06:19] LABS: AUTOMATED NEUTROPHIL # 14.2 TH/MM3 (1.8-7.7); BASOPHIL % 0.3 % (0.0-2.0); EOSINOPHIL # 0.1 TH/MM3 (0-0.4); EOSINOPHIL % 0.7 % (0.0-4.0); HEMATOCRIT 23.2 % (35.0-46.0); HEMOGLOBIN 7.4 GM/DL (11.6-15.3); LYMPH % 5.3 % (9.0-44.0); LYMPHOCYTE # 0.9 TH/MM3 (1.0-4.8); MEAN CELL VOLUME 89.4 FL (80.0-100.0); MEAN CORPUSCULAR HEMOGLOBIN 28.5 PG (27.0-34.0); MEAN CORPUSCULAR HGB CONC 31.9 % (32.0-36.0); MEAN PLATELET VOLUME 8.6 FL (7.0-11.0); MONO % 6.1 % (0.0-8.0); NEUT % 87.6 % (16.0-70.0); PLATELET COUNT 456 TH/MM3 (150-450); RED CELL DISTRIBUTION WIDTH 14.1 % (11.6-17.2); WHITE BLOOD COUNT 16.2 TH/MM3 (4.0-11.0)
[2017-08-12 06:48] LABS: BICARBONATE 24.7 MEQ/L (21.0-32.0); CALCIUM 6.9 MG/DL (8.5-10.1); CREATININE 0.65 MG/DL (0.50-1.00)
[2017-08-12 07:10] LABS: CALCIUM-PROTEIN CORRECTED 7.7 MG/DL (8.5-10.1); TOTAL PROTEIN 5.6 GM/DL (6.4-8.2)
[2017-08-12] MEDS: GEMFIBROZIL 600 MG TAB PO SCH ×2 (07:27→17:07)
[2017-08-12] MEDS: DOCUSATE SODIUM 50 MG/SENNA 8.6 MG TAB PO SCH ×2 (08:10→22:00)
[2017-08-12] MEDS: SODIUM CHLORIDE 0.9% FLUSH 10 ML FLUSH IV FLUSH SCH ×2 (08:10→21:59)
[2017-08-12] MEDS: CHLORHEXIDINE 0.12% (ORAL KIT) 15 ML CUP MT SCH ×2 (08:11→20:00)
[2017-08-12] MEDS: INSULIN DETEMIR 100 UNITS/ML VIAL SQ SCH ×2 (08:11→21:00)
--- NOTE | 2017-08-12 10:16 | HHI.CCPN ---
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 The patient was noted earlier today to have a sudden onset of right gaze, as well as right- sided weakness. She was also found to be very hypotensive. Initial blood pressure 60/20, which responded to fluids and increased to 90/60. She presented to the hospital as a stroke-alert. The MRI of brain obtained in the emergency department showed only questionable tiny subacute lacunar infarcts posterior periventricular white matter. Moderate to severe chronic ischemic changes in the periventricular white matter. Remote left parietal lobe infarct. The CT of the abdomen and pelvis however shows the abnormal pancreas with enlargement and peripancreatic inflammation and edema characteristic of acute pancreatitis. Cholelithiasis without pancreatic duct dilatation. 6: Afebrile. Patient continues to have severe metabolic acidosis sodium bicarbonate infusion continued. Patient on nonrebreather continuing to be weaned down . Patient bolused with 500 cc normal saline 1 this a.m.. Oliguric 150 cc urine output in the last 12 hours. Unable to assess the amount of IV fluid patient was given in the ED and overnight. No hematemesis or melena this a.m. Patient continues on Protonix twice daily. Patient currently on nonrebreather mask currently being weaned down O2 saturation 100% though PaO2 is 155. Triglycerides are pending. MRI is pending. 2: Afebrile. Overnight patient became hemodynamically unstable, central line placed patient currently on Levophed 12 mcgs/min. The patient FIO2 requirements are increasing, intubation planned. Echo report last night showed RV mildly dilated with RV systolic function mildly decreased. Concern for possible PE, however patient not a candidate in the setting of GI Bleed. Hgb and Hct trend stable. Metabolic acidosis resolved with NaHCO3 infusion, now decreased. Patient 's SVV continued elevation and BUN 77. Pt bolused IVF's this am. UOP, creatinine slightly improved overnight. Electrolytes being replaced and closely monitored. Discussed with GI AKI Spence after her discussion with Dr. Sanchez this am plan is for MRCP today by GI or Invasive Radiology. --> report indicates stone in CBD without ductal dilatation 08/04 Off levophed, remainsn on neosynephrine 80 mcg/min. RLE u/s shows extensive RLE DVT. No BMs overnight. Discussed with gastroenterology, Dr. Sanchez, who agrees with starting heparin drip and monitor closely for bleeding. HIDA scan yesterday shows no evidence of obstruction. LFTS trending down so GI has canceled IR consult for percutaneous transhepatic biliary drain. Creatinine down trending and urine output improved. 08/05 Now weaned off neosynephrine, on levophed 9 mcg/min, RN states unable to wean. Started on heparin drip yesterday, no evidence of bleeding. LFTs continue downtrend. Okay to resume tube feeds per GI, but OGT was coiled in mouth and was repositioned, so will need to confirm position before initiating tube feeds. Palliative care assisting with finding family, no success so far. 08/06 Remains on levophed. CI 2.2,LVEF appears preserved on bedside ultrasound. Thirdspacing with anasarca. Not following commands today, clonus and rigidity noted so obtained stat CT brain which shows no acute changes. No fever. Holding neuroleptics/serotonergics. 08/07 Afebrile. WBC up to 33.9. Remains on levophed, requirement increased to 10 mcg/min. No BM since admission but had a large BM after bowel regimen given today, has been tolerating tube feeds. Not tolerating CPAP. Had clonus, rigidity and shaking of BLE with decreased responsiveness yesterday. CT brain negative. EEG mild encephalopathy. Suspected serotonin syndrome, now rigidity and clonus is resolved after stopping fentanyl, risperdal , zoloft. On low dose propofol. Still trying to find family. 08/08: Remains sedated, a little bit on mechanical ventilation. On Levophed 4 mics per minute. Worsening leukocytosis despite antibiotics and addition of antifungal therapy on 08/07. 08/09 Off pressors today. WBC remains high in 30s. MRSA in sputum. Does not tolerate CPAP. 08/10 Fails CPAP Anasarca, will try to diurese. Subjective: 08/11 Fails CPAP 15/5 within minutes with RSBI >110 . UOP increased with efforts to diurese with albumin/lasix, though did not achieve negative 24 hour balance. BP drops intermittently. Multiple attempts to call her brother this weekend, left messages, not able to reach him. He previously indicated he did not want trach/PEG. Trach/PEG is necessary for ongoing aggressive care. Would be appropriate to transition to comfort measures at this point, which also seems congruent with patient's previously expressed wishes. 08/12 Patient remains sedated and intubated. Tolerating tube feeds. Afebrile. Objective Vital Signs Date Time Temp Pulse Resp B/P (MAP) Pulse Ox O2 Delivery O2 Flow Rate FiO2 08/12/17 08:39 99 35 08/12/17 08:00 101 08/12/17 08:00 98.9 22 144/78 (100) Intake and Output 08/12/17 08/12/17 08/13/17 08:00 16:00 00:00 Intake Total 589 ml Output Total 1750 ml Balance -1161 ml Result Diagram: 08/12/17 0600 08/12/17 0600 Other Results Laboratory Tests Test 08/12/17 06:00 White Blood Count 16.2 TH/MM3 Red Blood Count 2.60 MIL/MM3 Hemoglobin 7.4 GM/DL Hematocrit 23.2 % Mean Corpuscular Volume 89.4 FL Mean Corpuscular Hemoglobin 28.5 PG Mean Corpuscular Hemoglobin Concent 31.9 % Red Cell Distribution Width 14.1 % Platelet Count 456 TH/MM3 Mean Platelet Volume 8.6 FL Neutrophils (%) (Auto) 87.6 % Lymphocytes (%) (Auto) 5.3 % Monocytes (%) (Auto) 6.1 % Eosinophils (%) (Auto) 0.7 % Basophils (%) (Auto) 0.3 % Neutrophils # (Auto) 14.2 TH/MM3 Lymphocytes # (Auto) 0.9 TH/MM3 Monocytes # (Auto) 1.0 TH/MM3 Eosinophils # (Auto) 0.1 TH/MM3 Basophils # (Auto) 0.0 TH/MM3 CBC Comment DIFF FINAL Differential Comment Blood Urea Nitrogen 27 MG/DL Creatinine 0.65 MG/DL Random Glucose 140 MG/DL Total Protein 5.6 GM/DL Calcium Level 6.9 MG/DL Sodium Level 151 MEQ/L Potassium Level 3.8 MEQ/L Chloride Level 118 MEQ/L Carbon Dioxide Level 24.7 MEQ/L Anion Gap 8 MEQ/L Estimat Glomerular Filtration Rate 88 ML/MIN Protein Corrected Calcium 7.7 MG/DL Imaging Last Impressions Chest X-Ray 08/08/17 0000 Signed Impressions: CONCLUSION: 1. Small bilateral pleural effusions with mild atelectasis versus consolidatio n at the lung bases. 2. Tubes and lines appear stable. Head CT 08/06/17 Signed Impressions: CONCLUSION: 1. 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 No evidence of hemorrhage or acute m ass effect. Diffuse atrophy. Abdomen X-Ray 08/05/17 Signed Impressions: CONCLUSION: OG tube tip in proximal stomach. Mild basilar airspace disease with small left effusion. Lower Extremity Ultrasound 08/03/17 Signed Impressions: CONCLUSION: 1. Extensive DVT of the right lower extremity. 2. No venous thrombosis of the left lower extremity. Hepatobiliary Scan Nuclear Medicine 08/03/17 Signed Impressions: CONCLUSION: 1. No evidence of cystic duct or distal common bile duct obstruction. 2. Normal gallbladder ejection fraction. Cholangiopancreatography MRI 08/02/17 Signed Impressions: CONCLUSION: 1. Gallstones with at least one stone in the common duct 2. Pancreas poorly visualized because of motion. 3. Fluid present in the lesser sac consistent with pancreatitis. Head Magnetic Resonance Angiography 08/01/17 Signed Impressions: CONCLUSION: 1. Negative MRA [place] ([place] [facility] [place]) non contrast. Carotid Artery Ultrasound 08/01/17 Signed Impressions: CONCLUSION: 1. Right Internal Carotid Artery: Findings indicate <50% stenosis. 2. Left Internal Carotid Artery: Findings indicate <50% stenosis. Brain MRI 08/01/17 Signed Impressions: CONCLUSION: 1. Questionable tiny subacute lacunar infarcts posterior periventricular white matter. Moderate to severe chronic ischemic changes in the periventricular whi te matter. Remote left parietal lobe infarct. Abdomen/Pelvis CT 08/01/17 Signed Impressions: CONCLUSION: 1. The pancreas is abnormal with enlargement and peripancreatic inflammation a nd edema characteristic of acute pancreatitis. There is a small volume of free fluid in the abdomen and pelvis. 2. Cholelithiasis without pancreatic duct dilatation. 3. There is mild wall thickening of the inferior rectum with associated presac ral edema. 4. Small bilateral pleural effusions with associated compressive atelectasis. 5. There is a compression deformity of uncertain chronicity involving L3 and c ompression deformity with sclerosis involving T9. Objective Remarks GENERAL: This is an elderly, critically ill appearing female patient with anasarca , awakens on sedation and makes eye contact but not following commands. SKIN: No rashes, ecchymoses or lesions. HEAD: Atraumatic. Normocephalic. No temporal or scalp tenderness. EYES: Resists eye opening, pupils 2 mm equal round and reactive. Extraocular motions intact. No scleral icterus. No injection or drainage. NECK: Trachea midline. No JVD or lymphadenopathy. No meningismus CARDIOVASCULAR: Regular rate and rhythm with no m/r/g RESPIRATORY: Orotracheally intubated on mechanical ventilation. Coarse bilateral breath sounds, diminished at bases. GASTROINTESTINAL: Abdomen distended, mildly tympanitic, no appreciable tenderness. Bowel sounds hypoactive. : Mary in place MUSCULOSKELETAL: Extremities without clubbing, cyanosis. Anasarca. NEUROLOGICAL: Awakes to voice, makes eye contact. Moves extremities spontaneously but not following commands. Legs no longer rigid. No clonus. DTR 2 + patellar. Date of Insertion: Aug 02, 2017 Date of Insertion: Aug 03, 2017 A/P Assessment and Plan Plan by systems: Neurologic: Acute left lacunar stroke History of previous CVA Dementia Schizophrenia Depression On Diprivan infusion for sedation. Daily sedation vacation 08/02 MRI-moderate to severe ischemic changes. Tiny subacute lacunar infarcts. Remote left parietal lobe infarct 08/02 MRA brain-negative 08/02-CT brain-no acute abnormality Carotids-<50% stenosis Patient is followed by neurology-Dr. Michelle Was not a candidate for TPA on admission due to acute GI bleed Rigidity and clonus ?serotonin syndrome, now improved after Holding zoloft , risperidone and fentanyl. EEG - mild encephalopathy, no seizure Respiratory: Acute hypoxemic respiratory failure Intubated 08/03 On PRVC. daily CPAP trial, not tolerating. Per Dr. Cotto: Not tolerating CPAP, Would have to have trach if ongoing aggressive care desired but her brother has said he intends to honor her prior wishes and would not want trach. However, unable to reach him for several days regarding possible transition to comfort. Duo nebs every 6 hours scheduled every 2 hours as needed Ventilator bundle 08/02 CT-small bilateral pleural effusions bases DVT RLE, resume heparin drip Cardiovascular: Hypovolemic and septic shock secondary to acute pancreatitis- Resolved Monitor HR and BP keep MAP>65mmHg 08/02 echo-right ventricle mildly dilated. Right ventricular systolic function mildly decreased. EF 55-60% 08/03-troponin increased 0.03->0.27. Possibly secondary to acute kidney injury, infection. Conceivably could be related to PE but would not use TPA at this time anyway due to bleeding risk and she is not a candidate for CT pulmonary angiogram due to acute kidney injury. Cardiology has evaluated, Dr. Tang. He has not recommended any further ischemic workup and has signed off. Mild hypertriglyceridemia is not the etiology of pancreatitis. Is on gemfibrozil 600 mg p.o. twice daily Renal: Acute kidney injury- Resolved Hypernatremia Monitor real function, I/O's, electrolytes replacement per protocol. Place on Free water 250ml Q8 monitor sodium level. Change Lasix 20mg IV Q12 Nephrology, Dr. Sheridan has now signed off. FEN/GI: Acute gallstone pancreatitis, resolved. Choledocholithiasis Dyslipidemia GI bleed, resolved Elevated liver enzymes Chronic moderate protein calorie malnutrition 08/02- 1700 S/P MRI-at least one stone in the common bile duct. Dr. Mahoney spoke with Dr. Sanchez made him aware of patient's result. 08/03: MRCP demonstrates gallstones with cysts CBD stone. No dilatation of CBD. Minimal gallbladder wall thickening with trace fluid 08/03 HIDA scanno evidence of cystic duct or distal common bile duct obstruction. Normal gallbladder ejection fraction. Lipase now normalized at 134. LFTs downtrending. It appears she has passed a stone. Protonix twice daily Rectal wall thickening on the CT In ED patient was noted to have bright red blood per rectum. Was transfused 2 units packed red cells 08/01. Has not had any further bleeding. GI is not planning to scope at this time. Recommended proceed with anticoagulation for extensive DVT and possible PE and monitor closely for evidence of bleeding. Jevity 1.5 @ 50/hr per nutrition recs. Heme: Acute blood loss anemia 2/2 GI bleed Persistent leukocytosis Extensive right lower extremity DVT Monitor CBC Transfuse for hemoglobin less than 7 Patient transfused 2 units packed red blood cells in the ED (08/01) Ultrasound bilateral lower extremity 6/xtensive right lower extremity DVT including iliac vein and extending below the knee to the posterior tibial vein. Continue heparin drip. Initiated 08/04. Hgbs have been relatively stable. ID: Gallstone pancreatitis MRSA sputum 08/07 Continue abx per ID ( On Vancomycin, aztreonam, Flagyl , Micafungin) Monitor for signs of infections ( Fever, WBC) WBC is trending down C. difficile is negative. Repeat CT abdomen and pelvis Recheck sputum cx Endocrine: Hyperglycemia hemoglobin A1c 5.6 On Medium SSI for glycemic control and Levemir insulin 5u Q12 Prophylaxis: GI Prophylaxis Protonix BID DVT Prophylaxis Heparin drip as per above Lines: Right IJ central venous line 08/02 08/07 palliative care updated brother, Davi Sood and code status changed to DNR as he states he will honor patients prior wishes expressed during last hospitalization. I provided additional update. He indicates he does not want any additional invasive procedures and therefore does not want CVL or art line replaced, no trach/PEG, no ERCP, etc. Per Dr. Cotto : I contacted Davi 08/09 but there is no answer. Patient is critically ill and has been intubated for 9 days. She now has recurrent sepsis and now MRSA pneumonia and it appears inconceivable that she will be able to be extubated within a time frame that will allow avoidance of tracheostomy. She is not tolerating CPAP. Davi has previously indicated to me that she would not want to proceed with trach and PEG. Her overall prognosis appears poor and transition to comfort measures appears appropriate if that is in keeping with the decision of her healthcare proxy. Patient has previously indicated she desire DNR status during a prior hospitalization. I again contacted Davi 08/10, 08/11. No answer, left message to call hospital. Level 3 Juan Luis Brown MD Aug 12, 2017 10:16
--- NOTE | 2017-08-12 10:59 | RADRPT ---
EXAM DATE: 08/12/2017 10:50 AM EDT AGE/SEX: 76 years / Female INDICATIONS: Respiratory distress. CLINICAL DATA: This is the patient's subsequent encounter. Patient reports that signs and symptoms h ave been present for 4 - 6 days and indicates a pain score of Nonresponsive. MEDICAL/SURGICAL HISTORY: . Cerebrovascular disease. None. COMPARISON: [facility] – [place] CHEST SINGLE AP, 08/08/2017. . FINDINGS: A single AP view of the chest demonstrates enlargement of the left effusion. This is moderate sized c urrently. Basilar parenchymal consolidations bilaterally. These are stable. Tiny right effusion is st able. Heart is enlarged. Tip of the endotracheal tube 3 cm from the faina. Nasogastric tube courses off the inferior margin of the film. Right-sided central line without pneumothorax. CONCLUSION: The only interval change has been enlargement of the left effusion. The right effusion and bibasilar consolidation is stable. Electronically signed by: Davi Álvarez MD 08/12/2017 10:57 AM EDT
[2017-08-12] MEDS: FREE WATER G-TUBE SCH ×3 (11:00→22:00)
[2017-08-12 11:42] LABS: HEMATOCRIT 22.4 % (35.0-46.0); HEMOGLOBIN 7.3 GM/DL (11.6-15.3); MEAN CELL VOLUME 90.1 FL (80.0-100.0); MEAN CORPUSCULAR HEMOGLOBIN 29.5 PG (27.0-34.0); MEAN CORPUSCULAR HGB CONC 32.7 % (32.0-36.0); MEAN PLATELET VOLUME 8.8 FL (7.0-11.0); PLATELET COUNT 440 TH/MM3 (150-450); RED BLOOD COUNT 2.49 MIL/MM3 (4.00-5.30); RED CELL DISTRIBUTION WIDTH 13.9 % (11.6-17.2); WHITE BLOOD COUNT 14.7 TH/MM3 (4.0-11.0)
[2017-08-12] MEDS: HEPARIN-D5W 25,000 U/250 ML 250 ML IV PRN (11:44)
[2017-08-12 11:52] LABS: INTERNATIONAL NORMALIZED RATIO 1.3 RATIO; PROTHROMBIN TIME - PATIENT 13.5 SEC (9.8-11.6)
[2017-08-12] MEDS ORDERED: DIATRIZOATE MEGLUM/DIATRIZOATE SOD 9 ML CUP PO ONE (14:45)
--- NOTE | 2017-08-12 16:42 | HHI.HCPN ---
Palliative care continues to follow Ms. Sood for ongoing assistance with goals of care through communication with patient's brother, Davi Sood. Attempted to contact him today, number rings once them goes to voicemail. Also attempted to contact nephew Davi Sood JR. Also rings to voicemail. Left messages at both contacts requesting call back. Palliative care unable to further address goals as patient's brother, Davi Sood is currently acting has health care proxy and has not been reachable. It appears medical team has not had contact with brother since 08/09/17. Should Mr. Sood remain unreachable may want to seek executive legal secretary to determine proxy status. Ms. Sood remains a DNR with past instructions for no further escalation of care. Palliative care will continue to follow throughout hospitalization. Important Contacts: Davi Sood, brother: [phone] Davi Sood JR, nephew: [phone] Maddie Álvarez, [place] Aug 12, 2017 16:42
[2017-08-12] MEDS ORDERED: PHARMACY ORDERED LAB ONE (16:45)
[2017-08-12] MEDS: VANCOMYCIN INJ 1,250 MG in SODIUM CHLOR 0.9% 250 ML INJ 250 ML IV SCH (17:08)
--- NOTE | 2017-08-12 17:33 | HHI.HCPN ---
Reason for visit A. To assist with evaluation and management of symptoms including:Weakness, edema, altered mental status b. To assist medical decision maker(s) with: better understanding of current medical conditions; weighing benefits/burdens of medical treatment options; making medical treatment decisions. Subjective/Interval History Palliative care follow-up for further clarification of goals of care, and evaluation of symptoms of weakness, edema and altered mental status. Patient seen in medical ICU, remains endotracheally intubated on mechanical ventilation. Currently on propofol drip at 20 mcg/kg/min, no longer requiring pressor support. She remains on tube feeding at 50 mL/h. unable to tolerate spontaneous breathing trials. She tries to open her eyes to verbal and tactile stimuli however remains too weak. FiO2 remains at 35%, PEEP 5, RR 12. She has gross anasarca and 3+ pitting edema in all extremities. White blood cell count trending downward at 14.7, hemoglobin 7.3, hematocrit 22.4, platelets 440, sodium 151, potassium 3.8, BUN 27, creatinine 0.65, GFR 88 , calcium 6.9, protein corrected calcium 7.7, total protein 5.6. Blood cultures from 08/08/2017 are negative to date. Previous sputum culture on 2017 growing staph aureus MRSA; follow-up culture 08/12/2017 pending. Infectious disease is following and has ordered vancomycin, micafungin, aztreonam and metronidazole. CT scan of the abdomen and pelvis without IV contrast was ordered by infectious disease, however, in previous conversations with her healthcare decision maker, who is her brother Davi, he has declined all aggressive or invasive interventions to include not replacing a central line, adding an arterial line, tracheostomy or PEG placement. The only interval change in follow-up chest x-ray this morning 08/12/2017 was enlarging left effusion. The right effusion and bibasilar consolidation is stable. Maddie Álvarez, Palliative DISTANCE EDUCATION TEACHER, attempted to reach the patient's brother (Davi oSod) and nephew (Davi Sood .) again today without success. It appears the medical team has not had contact with the patient's brother since 08/09/2017. Should Mr. Sood remain unreachable, we will seek legal records manager to determine proxy status. Patient remains a DNR with past instructions for no further escalation of care. . Family/friend interactions See interval history . Advance Directives Living Will: Never completed Health Care Surrogate: Never completed Durable Power of Shipping And Receiving Assistant: Never completed Advance Directive Specifics Documented care wishes: No living will available. . Objective Vital Signs Date Time Temp Pulse Resp B/P (MAP) Pulse Ox O2 Delivery O2 Flow Rate FiO2 08/12/17 16:27 98 35 08/12/17 16:00 35 08/12/17 14:00 97 08/12/17 12:02 98 35 08/12/17 12:00 96 08/12/17 12:00 35 08/12/17 10:00 92 08/12/17 08:39 99 35 08/12/17 08:00 35 08/12/17 08:00 101 08/12/17 08:00 98.9 101 22 144/78 (100) 99 08/12/17 06:00 94 08/12/17 06:00 94 99/62 (74) 08/12/17 04:30 93 08/12/17 04:19 98 35 08/12/17 04:00 98.3 85 12 95/47 (63) 99 08/12/17 04:00 35 08/12/17 02:00 84 08/12/17 00:03 98 35 08/12/17 00:00 35 08/12/17 00:00 93 08/12/17 00:00 98.1 93 19 102/52 (69) 100 08/11/17 22:00 95 08/11/17 20:25 98 35 08/11/17 20:00 35 08/11/17 20:00 104 08/11/17 20:00 98.8 104 17 124/60 (81) 97 Arterial Line 08/11/17 18:00 94 94/53 (67) 117/47 (70) 08/11/17 18:00 94 Intake & Output 08/12/17 08/12/17 06:59 18:59 Intake Total 789 ml Output Total 1750 ml Balance -961 ml IV Total 350 ml Tube Feeding 439 ml Output Urine Total 1750 ml # Bowel Movements 2 . Physical Exam CONSTITUTIONAL/GENERAL: This is an obese patient, intubated and sedated, in no apparent distress. TUBES/LINES/DRAINS: ETT, OGT, Mary, left PIV 2, right IJ central line. Bilateral soft wrist restraints. SCD x 1 SKIN: No jaundice, rashes, or lesions. Ecchymoses on upper extremities. Small scabbed areas seen on left forearm. Skin temperature appropriate. Not diaphoretic. HEAD: Atraumatic. Normocephalic. EYES: Pupils equal and round and reactive. No scleral icterus. No injection or drainage ENT: Nose without bleeding or purulent drainage. NECK: Trachea midline. Supple. CARDIOVASCULAR: Regular rate and rhythm without murmurs, gallops, or rubs. No JVD. Peripheral pulses symmetric. RESPIRATORY/CHEST: Symmetric, unlabored respirations. Coarse breath sounds with occasional rhonchi, left > right GASTROINTESTINAL: Abdomen obese, distended. Limited abdominal exam due to body habitus. Bowel sounds present. GENITOURINARY: Without palpable bladder distension. Mary catheter in place. Notable episodes of diarrhea today (C. difficile negative 08/08/2017) MUSCULOSKELETAL: Extremities without clubbing or cyanosis. Generalized edema. No mottling or clubbing. NEUROLOGICAL: Sedated on 20mcg/kg.min. Open eyes only slightly for a brief period of time. PSYCHIATRIC: Sedated, appears calm. . Diagnostic Tests Laboratory Laboratory Tests Test 08/10/17 05:13 08/11/17 03:39 08/12/17 06:00 08/12/17 11:10 White Blood Count 25.2 TH/MM3 (4.0-11.0) 18.9 TH/MM3 (4.0-11.0) 16.2 TH/MM3 (4.0-11.0) 14.7 TH/MM3 (4.0-11.0) Red Blood Count 2.98 MIL/MM3 (4.00-5.30) 2.62 MIL/MM3 (4.00-5.30) 2.60 MIL/MM3 (4.00-5.30) 2.49 MIL/MM3 (4.00-5.30) Hemoglobin 8.6 GM/DL (11.6-15.3) 7.7 GM/DL (11.6-15.3) 7.4 GM/DL (11.6-15.3) 7.3 GM/DL (11.6-15.3) Hematocrit 26.8 % (35.0-46.0) 23.8 % (35.0-46.0) 23.2 % (35.0-46.0) 22.4 % (35.0-46.0) Mean Corpuscular Volume 90.0 FL (80.0-100.0) 90.8 FL (80.0-100.0) 89.4 FL (80.0-100.0) 90.1 FL (80.0-100.0) Mean Corpuscular Hemoglobin 28.8 PG (27.0-34.0) 29.5 PG (27.0-34.0) 28.5 PG (27.0-34.0) 29.5 PG (27.0-34.0) Mean Corpuscular Hemoglobin Concent 32.0 % (32.0-36.0) 32.5 % (32.0-36.0) 31.9 % (32.0-36.0) 32.7 % (32.0-36.0) Red Cell Distribution Width 14.4 % (11.6-17.2) 14.4 % (11.6-17.2) 14.1 % (11.6-17.2) 13.9 % (11.6-17.2) Platelet Count 376 TH/MM3 (150-450) 381 TH/MM3 (150-450) 456 TH/MM3 (150-450) 440 TH/MM3 (150-450) Mean Platelet Volume 9.0 FL (7.0-11.0) 9.0 FL (7.0-11.0) 8.6 FL (7.0-11.0) 8.8 FL (7.0-11.0) Neutrophils (%) (Auto) 87.3 % (16.0-70.0) 88.7 % (16.0-70.0) 87.6 % (16.0-70.0) Lymphocytes (%) (Auto) 5.7 % (9.0-44.0) 5.0 % (9.0-44.0) 5.3 % (9.0-44.0) Monocytes (%) (Auto) 6.4 % (0.0-8.0) 5.7 % (0.0-8.0) 6.1 % (0.0-8.0) Eosinophils (%) (Auto) 0.4 % (0.0-4.0) 0.4 % (0.0-4.0) 0.7 % (0.0-4.0) Basophils (%) (Auto) 0.2 % (0.0-2.0) 0.2 % (0.0-2.0) 0.3 % (0.0-2.0) Neutrophils # (Auto) 22.0 TH/MM3 (1.8-7.7) 16.7 TH/MM3 (1.8-7.7) 14.2 TH/MM3 (1.8-7.7) Lymphocytes # (Auto) 1.4 TH/MM3 (1.0-4.8) 0.9 TH/MM3 (1.0-4.8) 0.9 TH/MM3 (1.0-4.8) Monocytes # (Auto) 1.6 TH/MM3 (0-0.9) 1.1 TH/MM3 (0-0.9) 1.0 TH/MM3 (0-0.9) Eosinophils # (Auto) 0.1 TH/MM3 (0-0.4) 0.1 TH/MM3 (0-0.4) 0.1 TH/MM3 (0-0.4) Basophils # (Auto) 0.1 TH/MM3 (0-0.2) 0.0 TH/MM3 (0-0.2) 0.0 TH/MM3 (0-0.2) CBC Comment AUTO DIFF DIFF FINAL DIFF FINAL Differential Total Cells Counted 100 Neutrophils % (Manual) 87 % (16-70) Band Neutrophils % 1 % (0-6) Lymphocytes % 6 % (9-44) Monocytes % 6 % (0-8) Neutrophils # (Manual) 22.2 TH/MM3 (1.8-7.7) Differential Comment FINAL DIFF MANUAL Platelet Estimate NORMAL (NORMAL) Platelet Morphology Comment NORMAL (NORMAL) Red Cell Morphology Comment NORMAL (NORMAL) Blood Urea Nitrogen 30 MG/DL (7-18) 30 MG/DL (7-18) 27 MG/DL (7-18) Creatinine 0.75 MG/DL (0.50-1.00) 0.70 MG/DL (0.50-1.00) 0.65 MG/DL (0.50-1.00) Random Glucose 217 MG/DL (74-106) 220 MG/DL (74-106) 140 MG/DL (74-106) Total Protein 5.3 GM/DL (6.4-8.2) 5.4 GM/DL (6.4-8.2) 5.6 GM/DL (6.4-8.2) Albumin 1.2 GM/DL (3.4-5.0) Calcium Level 6.7 MG/DL (8.5-10.1) 6.9 MG/DL (8.5-10.1) 6.9 MG/DL (8.5-10.1) Alkaline Phosphatase 75 U/L (45-117) Aspartate Amino Transf (AST/SGOT) 13 U/L (15-37) Alanine Aminotransferase (ALT/SGPT) 18 U/L (10-53) Total Bilirubin 0.2 MG/DL (0.2-1.0) Sodium Level 147 MEQ/L (136-145) 147 MEQ/L (136-145) 151 MEQ/L (136-145) Potassium Level 3.6 MEQ/L (3.5-5.1) 3.5 MEQ/L (3.5-5.1) 3.8 MEQ/L (3.5-5.1) Chloride Level 115 MEQ/L (98-107) 116 MEQ/L (98-107) 118 MEQ/L (98-107) Carbon Dioxide Level 21.8 MEQ/L (21.0-32.0) 21.0 MEQ/L (21.0-32.0) 24.7 MEQ/L (21.0-32.0) Anion Gap 10 MEQ/L (5-15) 10 MEQ/L (5-15) 8 MEQ/L (5-15) Estimat Glomerular Filtration Rate 75 ML/MIN (>89) 81 ML/MIN (>89) 88 ML/MIN (>89) Protein Corrected Calcium 7.6 MG/DL (8.5-10.1) 7.8 MG/DL (8.5-10.1) 7.7 MG/DL (8.5-10.1) Prothrombin Time 13.5 SEC (9.8-11.6) Prothromb Time International Ratio 1.3 RATIO Activated Partial Thromboplast Time 28.3 SEC (24.3-30.1) Test 08/12/17 12:45 Blood Gas Puncture Site RT RADIAL Blood Gas Patient Temperature 98.6 Blood Gas HCO3 22 mmol/L (22-26) Blood Gas Base Excess -1.9 mmol/L (-2-2) Blood Gas Oxygen Saturation 97 % (90-100) Arterial Blood pH 7.40 (7.380-7.420) Arterial Blood Partial Pressure CO2 36 mmHg (38-42) Arterial Blood Partial Pressure O2 117 mmHg (61-120) Arterial Blood Oxygen Content 14.2 Vol % (12.0-20.0) Arterial Blood Carboxyhemoglobin 0.9 % (0-4) Arterial Blood Methemoglobin 1.2 % (0-2) Blood Gas Hemoglobin 10.3 G/DL (12.0-16.0) Oxygen Delivery Device VENT Blood Gas Ventilator Setting PRVC//500//35 Blood Gas Inspired Oxygen 35 % . Result Diagram: 08/12/17 1110 08/12/17 0600 Microbiology Microbiology Date/Time Source Procedure Growth Status 08/12/17 13:00 Sputum Endotracheal Gram Stain - Final Resulted 08/12/17 13:00 Sputum Endotracheal Sputum Culture Pending Resulted . Imaging Last 72 hours Impressions Chest X-Ray 08/12/17 0000 Signed Impressions: CONCLUSION: The only interval change has been enlargement of the left effusion. The right e ffusion and bibasilar consolidation is stable. . Procedures 08/02/2017: Right IJ central line placement 08/03/2017: Endotracheal intubation . Assessment and Plan Disease Oriented Problem List: (1) GI bleed (2) Metabolic acidosis (3) Altered mental status (4) Sepsis (5) Acute renal failure (6) Adjustment disorder with depressed mood (7) Hypertension Symptom Scale: (1) Weakness 0-10 Scale: Unable to quantify (Right flaccidity on admission, improving) (2) Altered mental status 0-10 Scale: Unable to quantify (Baseline dementia, intubated, sedated.) (3) Edema Pertinent Non-Medical Issues Psychosocial:Patient originally from [place]. Moved to [place] over 20 years ago. 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 Patient is single. She reports that she had a son but "was given away". Both parents are , one brother Felice at known age secondary to acute MD. One remaining brother by the name of aDvi Sood who she has not seen in over 12 years. Spiritual: No quaker affiliation. Legal: No advanced directive paperwork has been completed. Ethical issues impacting care: Resolved. Have made contact with the brother who is willing to serve as her healthcare proxy. . Important Contacts Brother: Davi Sood (verified) Possible nephew:Davi Sood Jr. (verified), Possible family member: Sharon Sood (voicemail left). . Prognosis Her prognosis is guarded. She is admitted with severe dehydration, sepsis, pancreatitis, metabolic acidosis, acute kidney failure and GI bleed, then suffered ventilatory dependent respiratory failure. After conversation with her brother, who by [place] statutes would be her proxy decision-maker, she has been made a DNR/DNI and he is refusing any further invasive or aggressive procedures. Per my discussion with Dr. Cotto, it is appearing that she may be entering a second round of sepsis, which will complicate her being medically extubated prior to the time for trach/PEG decision. Brother has indicated that he will not approve a tracheostomy or PEG tube placement, but has not yet specified comfort measures versus withdrawal versus no escalation. She has multiple system compromise and is at increased risk of continued decline and complications. . Code Status: No Code Plan PLAN: Legal decision maker: At this time the patient's capacity cannot be determined as she is intubated and sedated. Contact has been made with her brother Davi, who is willing to be the legal decision maker. Contact information has been updated. Per [place] statutes hierarchy, as she is not and has no children, parents are , her brother would be her proxy decision-maker. Goals: Comfort oriented. Brother has not yet specified if he wishes to convert to comfort measures and withdraw therapy or merely not escalate treatment. CODE STATUS: DNR/DNI Radha Hernández LCSW, attempted to reach the patient's brother ( Davi Sood) and nephew (Davi Sood JR.) again today without success. It appears the medical team has not had contact with the patient's brother since 08/09/2017. Should Mr. Sood remain unreachable, we will seek legal records manager to determine proxy status. Patient remains a DNR with past instructions for no further escalation of care. 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 At last evaluation prior to intubation, strength was 3/5 consistent with her prior admission in November 2016. She is undergoing rehydration and antibiotic therapy. Physical therapy is following. She has been evaluated by Dr. Campoverde for rehab. She was wheelchair bound upon admission and is likely sustaining increasing weakness due to prolonged bedbound status. * Altered mental status: Multifactorial related to sepsis, hypotension, dehydration, acidosis, baseline psycho affective disorder/schizophrenia. She is currently intubated and sedated and a thorough assessment cannot be made at this time. She is following some commands at this time but appears to be becoming septic again, limiting the ability to diurese her for medical extubation. Her brother is declining any invasive measures to include trach/ PEG. Pending brothers decision regarding withdrawal versus no escalation. * Edema: She has gross anasarca with significant pitting edema in all extremities. Hands are extremely swollen likely secondary to wrist restraints and dependent positioning. Albumin: 5.6; most recent albumin 1.2. Her renal indices are improving slowly. Patient is no longer requiring pressor support; furosemide 20 mg IV push every 12 hours was ordered 08/12/2017 Palliative care will continue to follow the patient during hospital course as condition evolves, to assist patient/decision-maker with understanding of their medical conditions, weighing benefits/burdens of treatment options, for clarification of goals of treatment. Additionally will assist with any symptoms of palliative concern. . Attestation To help prompt me to consider important information that might be impacting today's encounter and assessment, information from prior notes written by myself or my colleagues may have been "brought forward" into today's note. My signature on this note, however, is an attestation that I personally performed the exam, history, and/or decision-making noted today, and, unless otherwise indicated, the interactions with patient, family, and staff as well as the review of records all occurred today. I also attest that the listed assessment and stated plan reflect my best clinical judgment today based on the combination of historical information, prior notes, and today's exam/ interactions. When time spent is documented, it refers only to time spent today by the signer, or if indicated, combined time spent today by collaborating physician/nurse practitioner. . Anjali Berman Aug 12, 2017 17:33
[2017-08-12 19:35] LABS: HEMATOCRIT 22.6 % (35.0-46.0); HEMOGLOBIN 7.2 GM/DL (11.6-15.3)
[2017-08-12] MEDS: ZOLPIDEM TARTRATE 5 MG TAB PO SCH (21:00)
[2017-08-12] MEDS: MICAFUNGIN INJ 100 MG in SODIUM CHLORIDE 0.9% INJ 100 ML IV SCH (21:59)
--- NOTE | 2017-08-12 23:14 | HHI.IDPN ---
Subjective Subjective Remarks remains on vent + secreions sputum + for MRSa WBC down to 14 K low grade fever Antibiotics azctam flagyl vancomycin Allergies: Coded Allergies: aspirin (Unverified Allergy, Severe, 10/16/16) PT HAS TINNITUS penicillin G (Unverified Allergy, Severe, 10/16/16) Objective . Vital Signs Date Time Temp Pulse Resp B/P (MAP) Pulse Ox O2 Delivery O2 Flow Rate FiO2 08/12/17 19:32 100 35 08/12/17 18:00 95 08/12/17 16:27 98 35 08/12/17 16:00 107 08/12/17 16:00 35 08/12/17 16:00 35 08/12/17 16:00 99.4 107 25 169/75 (106) 08/12/17 14:00 97 08/12/17 12:02 98 35 08/12/17 12:00 99.0 96 21 121/78 (92) 08/12/17 12:00 96 08/12/17 12:00 35 08/12/17 10:00 92 08/12/17 08:39 99 35 08/12/17 08:00 35 08/12/17 08:00 101 08/12/17 08:00 98.9 101 22 144/78 (100) 99 08/12/17 06:00 94 08/12/17 06:00 94 99/62 (74) 08/12/17 04:30 93 08/12/17 04:19 98 35 08/12/17 04:00 98.3 85 12 95/47 (63) 99 08/12/17 04:00 35 08/12/17 02:00 84 08/12/17 00:03 98 35 08/12/17 00:00 35 08/12/17 00:00 93 08/12/17 00:00 98.1 93 19 102/52 (69) 100 08/12/17 08/12/17 08/13/17 15:00 23:00 07:00 Intake Total 990 ml Output Total 1200 ml Balance -210 ml Tube Feeding 490 ml Other 500 ml Output Urine Total 1200 ml # Bowel Movements 2 . Laboratory Tests Test 08/11/17 03:39 08/12/17 06:00 08/12/17 11:10 08/12/17 18:30 White Blood Count 18.9 TH/MM3 16.2 TH/MM3 14.7 TH/MM3 Red Blood Count 2.62 MIL/MM3 2.60 MIL/MM3 2.49 MIL/MM3 Hemoglobin 7.7 GM/DL 7.4 GM/DL 7.3 GM/DL 7.2 GM/DL Hematocrit 23.8 % 23.2 % 22.4 % 22.6 % Mean Corpuscular Volume 90.8 FL 89.4 FL 90.1 FL Mean Corpuscular Hemoglobin 29.5 PG 28.5 PG 29.5 PG Mean Corpuscular Hemoglobin Concent 32.5 % 31.9 % 32.7 % Red Cell Distribution Width 14.4 % 14.1 % 13.9 % Platelet Count 381 TH/MM3 456 TH/MM3 440 TH/MM3 Mean Platelet Volume 9.0 FL 8.6 FL 8.8 FL Neutrophils (%) (Auto) 88.7 % 87.6 % Lymphocytes (%) (Auto) 5.0 % 5.3 % Monocytes (%) (Auto) 5.7 % 6.1 % Eosinophils (%) (Auto) 0.4 % 0.7 % Basophils (%) (Auto) 0.2 % 0.3 % Neutrophils # (Auto) 16.7 TH/MM3 14.2 TH/MM3 Lymphocytes # (Auto) 0.9 TH/MM3 0.9 TH/MM3 Monocytes # (Auto) 1.1 TH/MM3 1.0 TH/MM3 Eosinophils # (Auto) 0.1 TH/MM3 0.1 TH/MM3 Basophils # (Auto) 0.0 TH/MM3 0.0 TH/MM3 CBC Comment DIFF FINAL DIFF FINAL Differential Comment Laboratory Tests Test 08/11/17 03:39 08/12/17 06:00 Blood Urea Nitrogen 30 MG/DL 27 MG/DL Creatinine 0.70 MG/DL 0.65 MG/DL Random Glucose 220 MG/DL 140 MG/DL Total Protein 5.4 GM/DL 5.6 GM/DL Calcium Level 6.9 MG/DL 6.9 MG/DL Sodium Level 147 MEQ/L 151 MEQ/L Potassium Level 3.5 MEQ/L 3.8 MEQ/L Chloride Level 116 MEQ/L 118 MEQ/L Carbon Dioxide Level 21.0 MEQ/L 24.7 MEQ/L Anion Gap 10 MEQ/L 8 MEQ/L Estimat Glomerular Filtration Rate 81 ML/MIN 88 ML/MIN Protein Corrected Calcium 7.8 MG/DL 7.7 MG/DL Microbiology Date/Time Source Procedure Growth Status 08/12/17 17:10 Stool Stool Stool Occult Blood (FREDDIE) - Final HEMOCCULT NEGATIVE Complete 08/12/17 13:00 Sputum Endotracheal Gram Stain - Final Resulted 08/12/17 13:00 Sputum Endotracheal Sputum Culture Pending Resulted Imaging Last Impressions Chest X-Ray 08/12/17 Signed Impressions: CONCLUSION: The only interval change has been enlargement of the left effusion. The right e ffusion and bibasilar consolidation is stable. Head CT 08/06/17 Signed Impressions: CONCLUSION: 1. 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 No evidence of hemorrhage or acute m ass effect. Diffuse atrophy. Abdomen X-Ray 08/05/17 Signed Impressions: CONCLUSION: OG tube tip in proximal stomach. Mild basilar airspace disease with small left effusion. Lower Extremity Ultrasound 08/03/17 Signed Impressions: CONCLUSION: 1. Extensive DVT of the right lower extremity. 2. No venous thrombosis of the left lower extremity. Hepatobiliary Scan Nuclear Medicine 08/03/17 Signed Impressions: CONCLUSION: 1. No evidence of cystic duct or distal common bile duct obstruction. 2. Normal gallbladder ejection fraction. Cholangiopancreatography MRI 08/02/17 Signed Impressions: CONCLUSION: 1. Gallstones with at least one stone in the common duct 2. Pancreas poorly visualized because of motion. 3. Fluid present in the lesser sac consistent with pancreatitis. Head Magnetic Resonance Angiography 08/01/17 Signed Impressions: CONCLUSION: 1. Negative MRA [place] ([place]) non contrast. Carotid Artery Ultrasound 08/01/17 Signed Impressions: CONCLUSION: 1. Right Internal Carotid Artery: Findings indicate <50% stenosis. 2. Left Internal Carotid Artery: Findings indicate <50% stenosis. Brain MRI 08/01/17 Signed Impressions: CONCLUSION: 1. Questionable tiny subacute lacunar infarcts posterior periventricular white matter. Moderate to severe chronic ischemic changes in the periventricular whi te matter. Remote left parietal lobe infarct. Abdomen/Pelvis CT 08/01/17 Signed Impressions: CONCLUSION: 1. The pancreas is abnormal with enlargement and peripancreatic inflammation a nd edema characteristic of acute pancreatitis. There is a small volume of free fluid in the abdomen and pelvis. 2. Cholelithiasis without pancreatic duct dilatation. 3. There is mild wall thickening of the inferior rectum with associated presac ral edema. 4. Small bilateral pleural effusions with associated compressive atelectasis. 5. There is a compression deformity of uncertain chronicity involving L3 and c ompression deformity with sclerosis involving T9. Physical Exam CONSTITUTIONAL/GENERAL: This is an adequately nourished patient, in no apparent distress.Sedated. Intubated TUBES/LINES/DRAINS: SKIN: No jaundice, rashes, or lesions. Ecchymoses on upper extremities. No wounds seen anteriorly. Skin temperature appropriate. Not diaphoretic. EYES: Pupils equal and round and reactive. Extraocular motions intact. No scleral icterus. No injection or drainage. Fundi not examined. ENT: Hearing not tested Nose without bleeding or purulent drainage. Throat without visible erythema, exudates, masses, or lesions. CARDIOVASCULAR: Regular rate and rhythm without murmurs, gallops, or rubs. No JVD. Peripheral pulses symmetric. RESPIRATORY/CHEST: Symmetric, unlabored respirations. Clear to auscultation. Breath diminished b/b bilaterally. No wheezes, rales, or rhonchi. GASTROINTESTINAL: Abdomen tight and less distended. No reaction to palpation No hepato-splenomegaly, or palpable masses. No guarding. Bowel sounds present. Incontinent of liquid stool GENITOURINARY: Without palpable bladder distension. Mary catheter in place with adequatre amount of yellow urine MUSCULOSKELETAL: Extremities without clubbing, cyanosis, improved tight BLE 4+ edema. No joint tenderness or effusion noted. No calf tenderness. No mottling or clubbing. NEUROLOGICAL: Sedated. PSYCHIATRIC: unable to assess Assessment & Plan Remarks Assessment and Plan Severe pancreatitis, gall stone induced Multi- organ failure Leukocytosis, leukemoid reaction - slightly improved Severe ileus, now diarrhea - C.diff negative Critically ill unstable MRSA in sputum , infiltrates 2/2 fluid overload, less liekly PNA Fluid overload - severe hypoalbunemia Overall improved in the last 24-48 hrs cont azactam , flagyl, vanco monitor WBC fu P blood clx will consider to repeat abd/pel scan if clinically worse Discussed Condition With Myranda Loco MD Aug 12, 2017 23:14
[2017-08-13] VITALS (33 sets, daily range): BP systolic 75–138; BP diastolic 42–69; PULSE 88–126; RESP 12–43; TEMP 98–100.7; O2SAT 9–100
[2017-08-13] MEDS: INSULIN ASPART SUPPLEMENTAL SCALE SQ SCH ×6 (00:17→20:01)
[2017-08-13] MEDS: PANTOPRAZOLE SODIUM 40 MG VIAL IV PUSH SCH ×2 (00:17→11:57)
[2017-08-13] MEDS: ALBUMIN 25% INJ 50 ML IV SCH ×2 (00:17→08:33)
[2017-08-13 00:56] LABS: HEMATOCRIT 23.2 % (35.0-46.0); HEMOGLOBIN 7.5 GM/DL (11.6-15.3)
[2017-08-13] MEDS: HEPARIN-D5W 25,000 U/250 ML 250 ML IV PRN ×2 (01:54→17:13)
[2017-08-13] MEDS: CHLORHEXIDINE GLUCONATE 2 % 1 PACK (2 CLOTHS) TOP SCH (03:27)
[2017-08-13] MEDS: AZTREONAM INJ 2,000 MG in SODIUM CHLORIDE 0.9% INJ 100 ML IV SCH ×3 (05:13→21:26)
[2017-08-13] MEDS: metroNIDAZOLE 500 MG INJ 100 ML IV SCH ×3 (05:13→21:26)
[2017-08-13] MEDS: FREE WATER G-TUBE SCH ×3 (05:14→21:25)
[2017-08-13] MEDS: GEMFIBROZIL 600 MG TAB PO SCH ×2 (05:45→16:35)
[2017-08-13] MEDS: PROPOFOL 1000 MG/100 ML INJ 100 ML IV PRN (05:54)
[2017-08-13 06:47] LABS: CREATININE 0.59 MG/DL (0.50-1.00)
[2017-08-13 06:48] LABS: HEMATOCRIT 22.4 % (35.0-46.0); HEMOGLOBIN 7.3 GM/DL (11.6-15.3); MEAN CELL VOLUME 89.3 FL (80.0-100.0); MEAN CORPUSCULAR HGB CONC 32.5 % (32.0-36.0); MEAN PLATELET VOLUME 9.1 FL (7.0-11.0); PLATELET COUNT 464 TH/MM3 (150-450); RED BLOOD COUNT 2.51 MIL/MM3 (4.00-5.30); RED CELL DISTRIBUTION WIDTH 14.1 % (11.6-17.2); WHITE BLOOD COUNT 16.5 TH/MM3 (4.0-11.0)
[2017-08-13] MEDS: CHLORHEXIDINE 0.12% (ORAL KIT) 15 ML CUP MT SCH ×2 (08:00→20:00)
[2017-08-13] MEDS: FUROSEMIDE 20 MG/2 ML VIAL IV PUSH SCH ×2 (08:33→20:04)
[2017-08-13] MEDS: SODIUM CHLORIDE 0.9% FLUSH 10 ML FLUSH IV FLUSH SCH ×2 (08:33→20:02)
[2017-08-13] MEDS: INSULIN DETEMIR 100 UNITS/ML VIAL SQ SCH (08:34)
[2017-08-13] MEDS: DOCUSATE SODIUM 50 MG/SENNA 8.6 MG TAB PO SCH ×2 (08:34→20:04)
--- NOTE | 2017-08-13 09:40 | HHI.CCPN ---
Subjective Remarks/Hospital Course 76-year-old pleasantly demented female, custodial resident. The patient was noted earlier today to have a sudden onset of right gaze, as well as right- sided weakness. She was also found to be very hypotensive. Initial blood pressure 60/20, which responded to fluids and increased to 90/60. She presented to the hospital as a stroke-alert. The MRI of brain obtained in the emergency department showed only questionable tiny subacute lacunar infarcts posterior periventricular white matter. Moderate to severe chronic ischemic changes in the periventricular white matter. Remote left parietal lobe infarct. The CT of the abdomen and pelvis however shows the abnormal pancreas with enlargement and peripancreatic inflammation and edema characteristic of acute pancreatitis. Cholelithiasis without pancreatic duct dilatation. 6: Afebrile. Patient continues to have severe metabolic acidosis sodium bicarbonate infusion continued. Patient on nonrebreather continuing to be weaned down . Patient bolused with 500 cc normal saline 1 this a.m.. Oliguric 150 cc urine output in the last 12 hours. Unable to assess the amount of IV fluid patient was given in the ED and overnight. No hematemesis or melena this a.m. Patient continues on Protonix twice daily. Patient currently on nonrebreather mask currently being weaned down O2 saturation 100% though PaO2 is 155. Triglycerides are pending. MRI is pending. 2: Afebrile. Overnight patient became hemodynamically unstable, central line placed patient currently on Levophed 12 mcgs/min. The patient FIO2 requirements are increasing, intubation planned. Echo report last night showed RV mildly dilated with RV systolic function mildly decreased. Concern for possible PE, however patient not a candidate in the setting of GI Bleed. Hgb and Hct trend stable. Metabolic acidosis resolved with NaHCO3 infusion, now decreased. Patient 's SVV continued elevation and BUN 77. Pt bolused IVF's this am. UOP, creatinine slightly improved overnight. Electrolytes being replaced and closely monitored. Discussed with GI AKI Spence after her discussion with Dr. Sanchez this am plan is for MRCP today by GI or Invasive Radiology. --> report indicates stone in CBD without ductal dilatation 08/04 Off levophed, remainsn on neosynephrine 80 mcg/min. RLE u/s shows extensive RLE DVT. No BMs overnight. Discussed with gastroenterology, Dr. Sanchez, who agrees with starting heparin drip and monitor closely for bleeding. HIDA scan yesterday shows no evidence of obstruction. LFTS trending down so GI has canceled IR consult for percutaneous transhepatic biliary drain. Creatinine down trending and urine output improved. 08/05 Now weaned off neosynephrine, on levophed 9 mcg/min, RN states unable to wean. Started on heparin drip yesterday, no evidence of bleeding. LFTs continue downtrend. Okay to resume tube feeds per GI, but OGT was coiled in mouth and was repositioned, so will need to confirm position before initiating tube feeds. Palliative care assisting with finding family, no success so far. 08/06 Remains on levophed. CI 2.2,LVEF appears preserved on bedside ultrasound. Thirdspacing with anasarca. Not following commands today, clonus and rigidity noted so obtained stat CT brain which shows no acute changes. No fever. Holding neuroleptics/serotonergics. 08/07 Afebrile. WBC up to 33.9. Remains on levophed, requirement increased to 10 mcg/min. No BM since admission but had a large BM after bowel regimen given today, has been tolerating tube feeds. Not tolerating CPAP. Had clonus, rigidity and shaking of BLE with decreased responsiveness yesterday. CT brain negative. EEG mild encephalopathy. Suspected serotonin syndrome, now rigidity and clonus is resolved after stopping fentanyl, risperdal , zoloft. On low dose propofol. Still trying to find family. 08/08: Remains sedated, a little bit on mechanical ventilation. On Levophed 4 mics per minute. Worsening leukocytosis despite antibiotics and addition of antifungal therapy on 08/07. 08/09 Off pressors today. WBC remains high in 30s. MRSA in sputum. Does not tolerate CPAP. 08/10 Fails CPAP Anasarca, will try to diurese. Subjective: 08/11 Fails CPAP 15/5 within minutes with RSBI >110 . UOP increased with efforts to diurese with albumin/lasix, though did not achieve negative 24 hour balance. BP drops intermittently. Multiple attempts to call her brother this weekend, left messages, not able to reach him. He previously indicated he did not want trach/PEG. Trach/PEG is necessary for ongoing aggressive care. Would be appropriate to transition to comfort measures at this point, which also seems congruent with patient's previously expressed wishes. 08/12 Patient remains sedated and intubated. Tolerating tube feeds. Afebrile. 08/13 No events overnight. Sedated and intubated. Afebrile. On Heparin drip. Objective Vital Signs Date Time Temp Pulse Resp B/P (MAP) Pulse Ox O2 Delivery O2 Flow Rate FiO2 08/13/17 08:17 35 08/13/17 08:17 100 08/13/17 04:00 98.0 88 12 90/49 (63) Intake and Output 08/13/17 08/13/17 08/14/17 08:00 16:00 00:00 Intake Total 1491 ml Output Total 1300 ml Balance 191 ml Result Diagram: 08/13/17 0600 08/13/17 06 Other Results Laboratory Tests Test 08/12/17 11:10 08/12/17 12:45 08/12/17 17:10 08/12/17 18:30 White Blood Count 14.7 TH/MM3 Red Blood Count 2.49 MIL/MM3 Hemoglobin 7.3 GM/DL 7.2 GM/DL Hematocrit 22.4 % 22.6 % Mean Corpuscular Volume 90.1 FL Mean Corpuscular Hemoglobin 29.5 PG Mean Corpuscular Hemoglobin Concent 32.7 % Red Cell Distribution Width 13.9 % Platelet Count 440 TH/MM3 Mean Platelet Volume 8.8 FL Prothrombin Time 13.5 SEC Prothromb Time International Ratio 1.3 RATIO Activated Partial Thromboplast Time 28.3 SEC 55.7 SEC Blood Gas Puncture Site RT RADIAL Blood Gas Patient Temperature 98.6 Blood Gas HCO3 22 mmol/L Blood Gas Base Excess -1.9 mmol/L Blood Gas Oxygen Saturation 97 % Arterial Blood pH 7.40 Arterial Blood Partial Pressure CO2 36 mmHg Arterial Blood Partial Pressure O2 117 mmHg Arterial Blood Oxygen Content 14.2 Vol % Arterial Blood Carboxyhemoglobin 0.9 % Arterial Blood Methemoglobin 1.2 % Blood Gas Hemoglobin 10.3 G/DL Oxygen Delivery Device VENT Blood Gas Ventilator Setting PRV//500/5/35 Blood Gas Inspired Oxygen 35 % Vancomycin Level Trough 20.9 MCG/ML Test 08/13/17 00:30 08/13/17 06:00 Hemoglobin 7.5 GM/DL 7.3 GM/DL Hematocrit 23.2 % 22.4 % Activated Partial Thromboplast Time 69.3 SEC White Blood Count 16.5 TH/MM3 Red Blood Count 2.51 MIL/MM3 Mean Corpuscular Volume 89.3 FL Mean Corpuscular Hemoglobin 29.0 PG Mean Corpuscular Hemoglobin Concent 32.5 % Red Cell Distribution Width 14.1 % Platelet Count 464 TH/MM3 Mean Platelet Volume 9.1 FL Creatinine 0.59 MG/DL Estimat Glomerular Filtration Rate 99 ML/MIN Imaging Last Impressions Chest X-Ray 08/12/17 Signed Impressions: CONCLUSION: The only interval change has been enlargement of the left effusion. The right e ffusion and bibasilar consolidation is stable. Head CT 08/06/17 Signed Impressions: CONCLUSION: 1. 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 No evidence of hemorrhage or acute m ass effect. Diffuse atrophy. Abdomen X-Ray 08/05/17 Signed Impressions: CONCLUSION: OG tube tip in proximal stomach. Mild basilar airspace disease with small left effusion. Lower Extremity Ultrasound 08/03/17 Signed Impressions: CONCLUSION: 1. Extensive DVT of the right lower extremity. 2. No venous thrombosis of the left lower extremity. Hepatobiliary Scan Nuclear Medicine 08/03/17 Signed Impressions: CONCLUSION: 1. No evidence of cystic duct or distal common bile duct obstruction. 2. Normal gallbladder ejection fraction. Cholangiopancreatography MRI 08/02/17 Signed Impressions: CONCLUSION: 1. Gallstones with at least one stone in the common duct 2. Pancreas poorly visualized because of motion. 3. Fluid present in the lesser sac consistent with pancreatitis. Head Magnetic Resonance Angiography 08/01/17 Signed Impressions: CONCLUSION: 1. Negative MRA Cow ([place] [facility] [place]) non contrast. Carotid Artery Ultrasound 08/01/17 Signed Impressions: CONCLUSION: 1. Right Internal Carotid Artery: Findings indicate <50% stenosis. 2. Left Internal Carotid Artery: Findings indicate <50% stenosis. Brain MRI 08/01/17 Signed Impressions: CONCLUSION: 1. Questionable tiny subacute lacunar infarcts posterior periventricular white matter. Moderate to severe chronic ischemic changes in the periventricular whi te matter. Remote left parietal lobe infarct. Abdomen/Pelvis CT 08/01/17 Signed Impressions: CONCLUSION: 1. The pancreas is abnormal with enlargement and peripancreatic inflammation a nd edema characteristic of acute pancreatitis. There is a small volume of free fluid in the abdomen and pelvis. 2. Cholelithiasis without pancreatic duct dilatation. 3. There is mild wall thickening of the inferior rectum with associated presac ral edema. 4. Small bilateral pleural effusions with associated compressive atelectasis. 5. There is a compression deformity of uncertain chronicity involving L3 and c ompression deformity with sclerosis involving T9. Objective Remarks GENERAL: This is an elderly, critically ill appearing female patient with anasarca , awakens on sedation and makes eye contact but not following commands. SKIN: No rashes, ecchymoses or lesions. HEAD: Atraumatic. Normocephalic. No temporal or scalp tenderness. EYES: Resists eye opening, pupils 2 mm equal round and reactive. Extraocular motions intact. No scleral icterus. No injection or drainage. NECK: Trachea midline. No JVD or lymphadenopathy. No meningismus CARDIOVASCULAR: Regular rate and rhythm with no m/r/g RESPIRATORY: Orotracheally intubated on mechanical ventilation. Coarse bilateral breath sounds, diminished at bases. GASTROINTESTINAL: Abdomen distended, mildly tympanitic, no appreciable tenderness. Bowel sounds hypoactive. : Mary in place MUSCULOSKELETAL: Extremities without clubbing, cyanosis. Anasarca. NEUROLOGICAL: Awakes to voice, makes eye contact. Moves extremities spontaneously but not following commands. Legs no longer rigid. No clonus. DTR 2 + patellar. Date of Insertion: Aug 02, 2017 Date of Insertion: Aug 03, 2017 A/P Assessment and Plan Plan by systems: Neurologic: Acute left lacunar stroke History of previous CVA Dementia Schizophrenia Depression On Diprivan infusion for sedation. Daily sedation vacation 08/02 MRI-moderate to severe ischemic changes. Tiny subacute lacunar infarcts. Remote left parietal lobe infarct 08/02 MRA brain-negative 08/02-CT brain-no acute abnormality Carotids-<50% stenosis Patient is followed by neurology-Dr. Michelle Was not a candidate for TPA on admission due to acute GI bleed Rigidity and clonus ?serotonin syndrome, improved after Holding Zoloft , risperidone and fentanyl. EEG - mild encephalopathy, no seizure Respiratory: Acute hypoxemic respiratory failure Intubated 08/03 On PRVC. daily CPAP trial, not tolerating. Per Dr. Cotto: Not tolerating CPAP, Would have to have trach if ongoing aggressive care desired but her brother has said he intends to honor her prior wishes and would not want trach. However, unable to reach him for several days regarding possible transition to comfort. - Still brother unable to be reached as of yesterday 08/12 by palliative care Dutaryn hess every 6 hours scheduled every 2 hours as needed Ventilator bundle DVT RLE, on heparin drip Cardiovascular: Hypovolemic and septic shock secondary to acute pancreatitis- Resolved Monitor HR and BP keep MAP>65mmHg 08/02 echo-right ventricle mildly dilated. Right ventricular systolic function mildly decreased. EF 55-60% 08/03-troponin increased 0.03->0.27. Possibly secondary to acute kidney injury, infection. Conceivably could be related to PE but would not use TPA at this time anyway due to bleeding risk and she is not a candidate for CT pulmonary angiogram due to acute kidney injury. Cardiology has evaluated, Dr. Tang. He has not recommended any further ischemic workup and has signed off. Mild hypertriglyceridemia is not the etiology of pancreatitis. Is on gemfibrozil 600 mg p.o. twice daily Renal: Acute kidney injury- Resolved Hypernatremia Monitor real function, I/O's, electrolytes replacement per protocol. On Free water 250ml Q8 monitor sodium level. Continue Lasix 20mg IV Q12 Nephrology, Dr. Sheridan has now signed off. FEN/GI: Acute gallstone pancreatitis, resolved. Choledocholithiasis Dyslipidemia GI bleed, resolved Elevated liver enzymes Chronic moderate protein calorie malnutrition 08/02- 1700 S/P MRI-at least one stone in the common bile duct. 08/03: MRCP demonstrates gallstones with cysts CBD stone. No dilatation of CBD. Minimal gallbladder wall thickening with trace fluid 08/03 HIDA scanno evidence of cystic duct or distal common bile duct obstruction. Normal gallbladder ejection fraction. Lipase now normalized at 164 on 08/07. LFTs downtrending. Protonix twice daily Rectal wall thickening on the CT In ED patient was noted to have bright red blood per rectum. Was transfused 2 units packed red cells 08/01. Has not had any further bleeding. GI is not planning to scope at this time. Recommended proceed with anticoagulation for extensive DVT and possible PE and monitor closely for evidence of bleeding. Jevity 1.5 @ 50/hr per nutrition recs. Heme: Acute blood loss anemia 2/2 GI bleed Persistent leukocytosis Extensive right lower extremity DVT Monitor CBC Transfuse for hemoglobin < 7 Patient transfused 2 units packed red blood cells in the ED (08/01) Ultrasound bilateral lower extremity xtensive right lower extremity DVT including iliac vein and extending below the knee to the posterior tibial vein. Continue heparin drip. Hgbs have been relatively stable. Hemoccult negative on 08/12 ID: Gallstone pancreatitis MRSA sputum 08/07 Continue abx per ID ( On Vancomycin, aztreonam, Flagyl , Micafungin) Monitor for signs of infections ( Fever, WBC) C. difficile is negative. Repeat CT abdomen and pelvis Follow up on sputum cx from 08/12 Endocrine: Hyperglycemia hemoglobin A1c 5.6 On Medium SSI for glycemic control and Levemir insulin 5u Q12 Prophylaxis: GI Prophylaxis Protonix BID DVT Prophylaxis Heparin drip as per above Lines: Right IJ central venous line 08/02 08/07 palliative care updated brother, Davi Sood and code status changed to DNR as he states he will honor patients prior wishes expressed during last hospitalization. I provided additional update. He indicates he does not want any additional invasive procedures and therefore does not want CVL or art line replaced, no trach/PEG, no ERCP, etc. Per Dr. Cotto : I contacted Davi 08/09 but there is no answer. Patient is critically ill and has been intubated for 9 days. She now has recurrent sepsis and now MRSA pneumonia and it appears inconceivable that she will be able to be extubated within a time frame that will allow avoidance of tracheostomy. She is not tolerating CPAP. Davi has previously indicated to me that she would not want to proceed with trach and PEG. Her overall prognosis appears poor and transition to comfort measures appears appropriate if that is in keeping with the decision of her healthcare proxy. Patient has previously indicated she desire DNR status during a prior hospitalization. I again contacted Davi 08/10, 08/11. No answer, left message to call hospital. Patient's brother couldn't be reached yesterday 08/12 as well. Level 3 Juan Luis Brown MD Aug 13, 2017 09:40
[2017-08-13] MEDS: RESP: ALBUTEROL 2.5 MG/IPRATROPIUM 0.5 MG NEB (SCH) NEB ×3 (10:24→21:21)
[2017-08-13 11:05] LABS: BICARBONATE 21.9 MEQ/L (21.0-32.0); CALCIUM 7.6 MG/DL (8.5-10.1); CREATININE 0.59 MG/DL (0.50-1.00)
--- NOTE | 2017-08-13 11:16 | HHI.HCPN ---
As of today there have been no return calls from patient's brother and patient' s nephew. Spoke with legal regarding no return contact from patient's family since 08/09. correctional classification counselor advised to proceed with next health care proxy decision maker in hierarchy per [place] Statutes which would be [employer]. Attempted to contact again 11am, left messages with both brother and nephew requesting a call back and notification that the hospital would have to proceed with next health care proxy decision maker per [place] Statues if we did not hear back from them. If no return call today, will consult [employer] tomorrow, Saturday08/14/17. Palliative care will continue to follow throughout hospitalization. Maddie Álvarez, BODY PIERCER Aug 13, 2017 11:16
--- NOTE | 2017-08-13 12:18 | HHI.HCPN ---
Reason for visit A. To assist with evaluation and management of symptoms including:Weakness, edema, altered mental status b. To assist medical decision maker(s) with: better understanding of current medical conditions; weighing benefits/burdens of medical treatment options; making medical treatment decisions. Subjective/Interval History Palliative care follow-up for further clarification of goals of care, and evaluation of symptoms of weakness, edema and altered mental status. Patient seen in medical ICU, remains endotracheally intubated on mechanical ventilation. Currently on propofol drip at 5 mcg/kg/min, no longer requiring pressor support. She remains on tube feeding at 50 mL/h. She opens eyes slightly to verbal and tactile stimuli. FiO2 remains at 35%, PEEP 5, RR 12. She has gross anasarca and 3+ pitting edema in all extremities. White blood cells persistently elevated at 16.5, hemoglobin 7.3, hematocrit 22.4 , platelets 464, sodium 147, potassium 3.3, chloride 115, BUN 24, creatinine 0.59, GFR 99, glucose 138, calcium 7.6. Blood cultures from 08/08/2017 are negative to date. Previous sputum culture on 08/07/2017 growing staph aureus MRSA ; follow-up culture 08/12/2017 pending. Infectious disease is following and has ordered vancomycin, micafungin, aztreonam and metronidazole. CT scan of the abdomen and pelvis without IV contrast was ordered by infectious disease, however, in previous conversations with her healthcare decision maker, who is her brother Davi, he has declined all aggressive or invasive interventions to include not replacing a central line, adding an arterial line, tracheostomy or PEG placement. Hemoccult negative stool 08/12/2017 The only interval change in follow-up chest x-ray this morning 08/12/2017 was enlarging left effusion. The right effusion and bibasilar consolidation is stable. . Family/friend interactions Per Mdadie Álvarez Palliative MAXILLOFACIAL PROSTHODONTIST: As of today there have been no return calls from patient's brother and patient's nephew. Spoke with legal regarding no return contact from patient's family since 08/09. school counsellor advised to proceed with next health care proxy decision maker in hierarchy per [place] Statutes which would be [employer]. Attempted to contact again 11am, left messages with both brother and nephew requesting a call back and notification that the hospital would have to proceed with next health care proxy decision maker per [place] Statues if we did not hear back from them. If no return call today, will consult social work advantage tomorrow, Saturday08/14/17. . Advance Directives Living Will: Never completed Health Care Surrogate: Never completed Durable Power of Family Resource Management Professor: Never completed Advance Directive Specifics Documented care wishes: No living will available. . Objective Vital Signs Date Time Temp Pulse Resp B/P (MAP) Pulse Ox O2 Delivery O2 Flow Rate FiO2 08/13/17 11:19 96 35 08/13/17 10:00 107 37 114/54 (74) 96 08/13/17 10:00 105 08/13/17 09:30 106 36 119/56 (77) 97 08/13/17 09:01 103 26 123/56 (78) 98 08/13/17 08:30 100 35 92/63 (73) 98 08/13/17 08:17 35 08/13/17 08:17 100 35 08/13/17 08:01 98.2 100 18 83/52 (62) 100 08/13/17 08:00 99 08/13/17 08:00 35 08/13/17 07:45 90 18 94/50 (65) 99 08/13/17 07:41 90 12 77/44 (55) 98 08/13/17 07:31 90 12 75/42 (53) 98 08/13/17 07:00 98 12 102/54 (70) 97 08/13/17 04:00 98.0 88 12 90/49 (63) 99 08/13/17 04:00 35 08/13/17 03:59 99 35 08/13/17 00:15 91 16 100 08/13/17 00:00 98.0 89 12 89/52 (64) 100 08/13/17 00:00 35 08/12/17 23:45 89 12 100 08/12/17 23:30 92 13 93/55 (68) 100 08/12/17 23:20 100 35 08/12/17 23:15 91 13 100 08/12/17 23:00 88 12 95/50 (65) 100 08/12/17 22:45 90 12 100 08/12/17 22:31 93 13 106/54 (71) 100 08/12/17 22:30 92 14 100 08/12/17 22:15 88 12 100 08/12/17 22:00 88 12 112/57 (75) 100 08/12/17 21:45 87 12 99 08/12/17 21:31 91 18 114/82 (93) 98 08/12/17 21:30 91 26 99 08/12/17 21:15 86 12 100 08/12/17 21:00 86 13 100/54 (69) 99 08/12/17 20:45 83 12 100 08/12/17 20:30 87 12 103/51 (68) 100 08/12/17 20:15 87 12 100 08/12/17 20:00 35 08/12/17 20:00 98.3 89 12 110/58 (75) 100 08/12/17 19:32 100 35 08/12/17 18:00 95 08/12/17 16:27 98 35 08/12/17 16:00 107 08/12/17 16:00 35 08/12/17 16:00 35 08/12/17 16:00 99.4 107 25 169/75 (106) 08/12/17 14:00 97 Intake & Output 08/13/17 08/13/17 06:59 18:59 Intake Total 1890 ml Output Total 1300 ml Balance 590 ml Intake Oral 0 ml IV Total 1060 ml Tube Feeding 570 ml Other 260 ml Output Urine Total 1300 ml # Bowel Movements 0 . Physical Exam CONSTITUTIONAL/GENERAL: This is an obese patient, intubated and sedated, in no apparent distress. TUBES/LINES/DRAINS: ETT, OGT, Mary, left PIV 2, right IJ central line. Bilateral soft wrist restraints. SCD x 1 SKIN: No jaundice, rashes, or lesions. Ecchymoses on upper extremities. Small scabbed areas seen on left forearm. Skin temperature appropriate. Not diaphoretic. HEAD: Atraumatic. Normocephalic. EYES: Pupils equal and round and reactive. No scleral icterus. No injection or drainage ENT: Nose without bleeding or purulent drainage. NECK: Trachea midline. Supple. No JVD. CARDIOVASCULAR: Regular rate and rhythm without murmurs, gallops, or rubs. Peripheral pulses symmetric. RESPIRATORY/CHEST: Symmetric, unlabored respirations. Coarse breath sounds bilaterally, diminished at bases. GASTROINTESTINAL: Abdomen obese, nontender. Limited abdominal exam due to body habitus. Active bowel sounds 4 quadrants. GENITOURINARY: Without palpable bladder distension. Mary catheter in place. Notable episodes of diarrhea today (C. difficile negative 08/08/2017) MUSCULOSKELETAL: Extremities without clubbing or cyanosis. Generalized edema. No mottling or clubbing. NEUROLOGICAL: Sedated on 5mcg/kg.min. Open eyes only slightly for a brief period of time. PSYCHIATRIC: Sedated, appears calm. . Diagnostic Tests Laboratory Laboratory Tests Test 08/11/17 03:39 08/12/17 06:00 08/12/17 11:10 08/12/17 12:45 White Blood Count 18.9 TH/MM3 (4.0-11.0) 16.2 TH/MM3 (4.0-11.0) 14.7 TH/MM3 (4.0-11.0) Red Blood Count 2.62 MIL/MM3 (4.00-5.30) 2.60 MIL/MM3 (4.00-5.30) 2.49 MIL/MM3 (4.00-5.30) Hemoglobin 7.7 GM/DL (11.6-15.3) 7.4 GM/DL (11.6-15.3) 7.3 GM/DL (11.6-15.3) Hematocrit 23.8 % (35.0-46.0) 23.2 % (35.0-46.0) 22.4 % (35.0-46.0) Mean Corpuscular Volume 90.8 FL (80.0-100.0) 89.4 FL (80.0-100.0) 90.1 FL (80.0-100.0) Mean Corpuscular Hemoglobin 29.5 PG (27.0-34.0) 28.5 PG (27.0-34.0) 29.5 PG (27.0-34.0) Mean Corpuscular Hemoglobin Concent 32.5 % (32.0-36.0) 31.9 % (32.0-36.0) 32.7 % (32.0-36.0) Red Cell Distribution Width 14.4 % (11.6-17.2) 14.1 % (11.6-17.2) 13.9 % (11.6-17.2) Platelet Count 381 TH/MM3 (150-450) 456 TH/MM3 (150-450) 440 TH/MM3 (150-450) Mean Platelet Volume 9.0 FL (7.0-11.0) 8.6 FL (7.0-11.0) 8.8 FL (7.0-11.0) Neutrophils (%) (Auto) 88.7 % (16.0-70.0) 87.6 % (16.0-70.0) Lymphocytes (%) (Auto) 5.0 % (9.0-44.0) 5.3 % (9.0-44.0) Monocytes (%) (Auto) 5.7 % (0.0-8.0) 6.1 % (0.0-8.0) Eosinophils (%) (Auto) 0.4 % (0.0-4.0) 0.7 % (0.0-4.0) Basophils (%) (Auto) 0.2 % (0.0-2.0) 0.3 % (0.0-2.0) Neutrophils # (Auto) 16.7 TH/MM3 (1.8-7.7) 14.2 TH/MM3 (1.8-7.7) Lymphocytes # (Auto) 0.9 TH/MM3 (1.0-4.8) 0.9 TH/MM3 (1.0-4.8) Monocytes # (Auto) 1.1 TH/MM3 (0-0.9) 1.0 TH/MM3 (0-0.9) Eosinophils # (Auto) 0.1 TH/MM3 (0-0.4) 0.1 TH/MM3 (0-0.4) Basophils # (Auto) 0.0 TH/MM3 (0-0.2) 0.0 TH/MM3 (0-0.2) CBC Comment DIFF FINAL DIFF FINAL Differential Comment Blood Urea Nitrogen 30 MG/DL (7-18) 27 MG/DL (7-18) Creatinine 0.70 MG/DL (0.50-1.00) 0.65 MG/DL (0.50-1.00) Random Glucose 220 MG/DL (74-106) 140 MG/DL (74-106) Total Protein 5.4 GM/DL (6.4-8.2) 5.6 GM/DL (6.4-8.2) Calcium Level 6.9 MG/DL (8.5-10.1) 6.9 MG/DL (8.5-10.1) Sodium Level 147 MEQ/L (136-145) 151 MEQ/L (136-145) Potassium Level 3.5 MEQ/L (3.5-5.1) 3.8 MEQ/L (3.5-5.1) Chloride Level 116 MEQ/L (98-107) 118 MEQ/L (98-107) Carbon Dioxide Level 21.0 MEQ/L (21.0-32.0) 24.7 MEQ/L (21.0-32.0) Anion Gap 10 MEQ/L (5-15) 8 MEQ/L (5-15) Estimat Glomerular Filtration Rate 81 ML/MIN (>89) 88 ML/MIN (>89) Protein Corrected Calcium 7.8 MG/DL (8.5-10.1) 7.7 MG/DL (8.5-10.1) Prothrombin Time 13.5 SEC (9.8-11.6) Prothromb Time International Ratio 1.3 RATIO Activated Partial Thromboplast Time 28.3 SEC (24.3-30.1) Blood Gas Puncture Site RT RADIAL Blood Gas Patient Temperature 98.6 Blood Gas HCO3 22 mmol/L (22-26) Blood Gas Base Excess -1.9 mmol/L (-2-2) Blood Gas Oxygen Saturation 97 % (90-100) Arterial Blood pH 7.40 (7.380-7.420) Arterial Blood Partial Pressure CO2 36 mmHg (38-42) Arterial Blood Partial Pressure O2 117 mmHg (61-120) Arterial Blood Oxygen Content 14.2 Vol % (12.0-20.0) Arterial Blood Carboxyhemoglobin 0.9 % (0-4) Arterial Blood Methemoglobin 1.2 % (0-2) Blood Gas Hemoglobin 10.3 G/DL (12.0-16.0) Oxygen Delivery Device VENT Blood Gas Ventilator Setting [facility]// Blood Gas Inspired Oxygen 35 % Test 08/12/17 17:10 08/12/17 18:30 08/13/17 00:30 08/13/17 06:00 Vancomycin Level Trough 20.9 MCG/ML (5.0-10.0) Hemoglobin 7.2 GM/DL (11.6-15.3) 7.5 GM/DL (11.6-15.3) 7.3 GM/DL (11.6-15.3) Hematocrit 22.6 % (35.0-46.0) 23.2 % (35.0-46.0) 22.4 % (35.0-46.0) Activated Partial Thromboplast Time 55.7 SEC (24.3-30.1) 69.3 SEC (24.3-30.1) White Blood Count 16.5 TH/MM3 (4.0-11.0) Red Blood Count 2.51 MIL/MM3 (4.00-5.30) Mean Corpuscular Volume 89.3 FL (80.0-100.0) Mean Corpuscular Hemoglobin 29.0 PG (27.0-34.0) Mean Corpuscular Hemoglobin Concent 32.5 % (32.0-36.0) Red Cell Distribution Width 14.1 % (11.6-17.2) Platelet Count 464 TH/MM3 (150-450) Mean Platelet Volume 9.1 FL (7.0-11.0) Creatinine 0.59 MG/DL (0.50-1.00) Estimat Glomerular Filtration Rate 99 ML/MIN (>89) Test 08/13/17 10:05 Blood Urea Nitrogen 24 MG/DL (7-18) Creatinine 0.59 MG/DL (0.50-1.00) Random Glucose 138 MG/DL (74-106) Calcium Level 7.6 MG/DL (8.5-10.1) Sodium Level 147 MEQ/L (136-145) Potassium Level 3.3 MEQ/L (3.5-5.1) Chloride Level 115 MEQ/L (98-107) Carbon Dioxide Level 21.9 MEQ/L (21.0-32.0) Anion Gap 10 MEQ/L (5-15) Estimat Glomerular Filtration Rate 99 ML/MIN (>89) . Result Diagram: 08/13/17 0600 08/13/17 1005 Microbiology Microbiology Date/Time Source Procedure Growth Status 08/12/17 17:10 Stool Stool Stool Occult Blood (FREDDIE) - Final HEMOCCULT NEGATIVE Complete 08/12/17 13:00 Sputum Endotracheal Gram Stain - Final Resulted 08/12/17 13:00 Sputum Endotracheal Sputum Culture Pending Resulted . Imaging Last 72 hours Impressions Chest X-Ray 08/12/17 0000 Signed Impressions: CONCLUSION: The only interval change has been enlargement of the left effusion. The right e ffusion and bibasilar consolidation is stable. . Procedures 08/02/2017: Right IJ central line placement 08/03/2017: Endotracheal intubation . Assessment and Plan Disease Oriented Problem List: (1) GI bleed (2) Metabolic acidosis (3) Altered mental status (4) Sepsis (5) Acute renal failure (6) Adjustment disorder with depressed mood (7) Hypertension Symptom Scale: (1) Weakness 0-10 Scale: Unable to quantify (Right flaccidity on admission, improving) (2) Altered mental status 0-10 Scale: Unable to quantify (Baseline dementia, intubated, sedated.) (3) Edema 0-10 Scale: Unable to quantify Pertinent Non-Medical Issues Psychosocial:Patient originally from [place]. Moved to [place] over 20 years ago. 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 Patient is single. She reports that she had a son but "was given away". Both parents are , one brother Felice at known age secondary to acute [place]. One remaining brother by the name of Davi Sood who she has not seen in over 12 years. Spiritual: No methodist affiliation. Legal: No advanced directive paperwork has been completed. Ethical issues impacting care: Resolved. Have made contact with the brother who is willing to serve as her healthcare proxy. . Important Contacts Brother: Davi Sood (verified) Possible nephew:Davi Sood Jr. (verified), Possible family member: Sharon Sood (voicemail left). . Prognosis Her prognosis is guarded. She is admitted with severe dehydration, sepsis, pancreatitis, metabolic acidosis, acute kidney failure and GI bleed, then suffered ventilatory dependent respiratory failure. After conversation with her brother, who by [place] statutes would be her proxy decision-maker, she has been made a DNR/DNI and he is refusing any further invasive or aggressive procedures. Per my discussion with Dr. Cotto, it is appearing that she may be entering a second round of sepsis, which will complicate her being medically extubated prior to the time for trach/PEG decision. Brother has indicated that he will not approve a tracheostomy or PEG tube placement, but has not yet specified comfort measures versus withdrawal versus no escalation. She has multiple system compromise and is at increased risk of continued decline and complications. . Code Status: No Code Plan PLAN: CODE STATUS: DNR/DNI Legal decision maker: At this time the patient's capacity cannot be determined as she is intubated and sedated. Contact has been made with her brother Davi, who is willing to be the legal decision maker. Contact information has been updated. Per [place] statutes hierarchy, as she is not and has no children, parents are , her brother would be her proxy decision-maker. Per Maddie Álvarez, Palliative MAXILLOFACIAL PROSTHODONTIST: As of today there have been no return calls from patient's brother and patient's nephew. Spoke with legal regarding no return contact from patient's family since 08/09. school counsellor advised to proceed with next health care proxy decision maker in hierarchy per [place] Statutes which would be [employer]. Attempted to contact again 11am, left messages with both brother and nephew requesting a call back and notification that the hospital would have to proceed with next health care proxy decision maker per [place] Statues if we did not hear back from them. If no return call today, will consult social work advantage tomorrow , Saturday08/14/17. Discussed patient with RN Osbaldo and Dr. Villafana. SYMPTOMS: * Weakness: Multifactorial, related to sepsis, dehydration, hypotension, acidosis, pancreatitis, general and half-way debility. At last evaluation prior to intubation, strength was 3/5 consistent with her prior admission in November 2016. She is undergoing rehydration and antibiotic therapy. Physical therapy is following. She has been evaluated by Dr. Campoverde for rehab. She was wheelchair bound upon admission and is likely sustaining increasing weakness due to prolonged bedbound status. * Altered mental status: Multifactorial related to sepsis, hypotension, dehydration, acidosis, baseline psycho affective disorder/schizophrenia. She is currently intubated and sedated and a thorough assessment cannot be made at this time. She is following some commands at this time but appears to be becoming septic again, limiting the ability to diurese her for medical extubation. Her brother is declining any invasive measures to include trach/ PEG. Pending brothers decision regarding withdrawal versus no escalation. * Edema: She has gross anasarca with significant pitting edema in all extremities. Hands are extremely swollen likely secondary to wrist restraints and dependent positioning. Albumin: 5.6; most recent albumin 1.2. Her renal indices are improving slowly. Patient is no longer requiring pressor support; furosemide 20 mg IV push every 12 hours was ordered 08/12/2017 Palliative care will continue to follow the patient during hospital course as condition evolves, to assist patient/decision-maker with understanding of their medical conditions, weighing benefits/burdens of treatment options, for clarification of goals of treatment. Additionally will assist with any symptoms of palliative concern. . Attestation To help prompt me to consider important information that might be impacting today's encounter and assessment, information from prior notes written by myself or my colleagues may have been "brought forward" into today's note. My signature on this note, however, is an attestation that I personally performed the exam, history, and/or decision-making noted today, and, unless otherwise indicated, the interactions with patient, family, and staff as well as the review of records all occurred today. I also attest that the listed assessment and stated plan reflect my best clinical judgment today based on the combination of historical information, prior notes, and today's exam/ interactions. When time spent is documented, it refers only to time spent today by the signer, or if indicated, combined time spent today by collaborating physician/nurse practitioner. . Anjali Berman Aug 13, 2017 12:18
--- NOTE | 2017-08-13 12:50 | RADRPT ---
EXAM DATE: 08/13/2017 12:30 PM EDT AGE/SEX: 76 years / Female INDICATIONS: Sepsis, pancreatitis. CLINICAL DATA: This is the patient's initial encounter. Patient reports that signs and symptoms have been present for 1 day and indicates a pain score of Nonresponsive. MEDICAL/SURGICAL HISTORY: Cerebrovascular disease. Carcinoma, breast. Pancreatitis. Non-respo nsive. RADIATION DOSE: 21.92 CTDI (mGy) COMPARISON: [facility], MRCP W/O CONTRAST, 08/02/2017. . TECHNIQUE: Multiple contiguous axial images were obtained through the abdomen. Images were obtained using multiple row detector helical technique. Using dose reduction techniques, radiation dose was ke pt as low as reasonably achievable to obtain optimal diagnostic quality images. FINDINGS: Abdomen CT: The liver, spleen, adrenals are unremarkable. The pancreas is replaced with large fluid collections o verall dimension of 9.3 x 16.7 cm in AP and transverse diameters. Normal pancreatic tissue is barely visualized and possibility of necrotic acute pancreatitis should be entertained. There is also diffus e edema involving the mesentery with slight fluid within the peritoneal cavity. The fluid collection is evolving into pseudocyst formation could potentially be drained based on clinical grounds. Moderat e bilateral pleural effusions are present with bibasilar consolidation and/or compressive collapse. T here is also diffuse anasarca. There is focal edema in the right chest wall towards the lower portion maximum AP diameter of 15.9 cm with edema involving the subcutaneous tissues of the visualized porti ons of the patient's right arm. There is moderate amount of ascites throughout the abdomen and pelvis appears to be high density could be hemorrhagic. This could be lymphedema or possibly inflammatory i n nature. There are multiple compression deformities of thoracic and lumbar spine most likely osteopo rotic the most pronounced area involves T9 vertebrae almost a vertebral plana with significant degene rative change of T8-9 and T9-10 levels. There is also involvement of superior endplate of L3 and L5. There are atherosclerotic calcifications of aorta and there are calcifications in the right kidney ma y be vascular or tiny stones. There is an approximate 2.9 cm cyst in left kidney. Gallstones are pres ent in the gallbladder. Pelvic CT: There is no evidence for mass, abscess formation, or any significant adenopathy within the pelvis. CONCLUSION: 1. Extensive acute pancreatitis with very little normal pancreatic tissue concerning for necrotic pa ncreatitis with extensive fluid collection replacing the entire pancreas developing into pseudocyst f ormation could be drained based on clinical grounds. 2. There is moderate ascites throughout the abdomen and pelvis is potentially hemorrhagic. 3. There is anasarca with edema particularly in the right chest wall and right arm. 4. Cholelithiasis. Electronically signed by: Alexy Bhandari MD 08/13/2017 12:49 PM EDT
[2017-08-13] MEDS: POTASSIUM CHLOR 20 MEQ PREMIX 100 ML IV PRN ×2 (15:18→16:35)
[2017-08-13] MEDS: VANCOMYCIN 1,000 MG/NS 250 ML IV SCH ×2 (17:08)
[2017-08-13] MEDS: MICAFUNGIN INJ 100 MG in SODIUM CHLORIDE 0.9% INJ 100 ML IV SCH (20:02)
[2017-08-13] MEDS: ZOLPIDEM TARTRATE 5 MG TAB PO SCH (20:04)
[2017-08-14] VITALS (33 sets, daily range): BP systolic 85–118; BP diastolic 51–66; PULSE 99–114; RESP 13–17; TEMP 99.1–101.9; O2SAT 96–100
[2017-08-14] MEDS: PANTOPRAZOLE SODIUM 40 MG VIAL IV PUSH SCH ×2 (00:04→12:01)
[2017-08-14] MEDS: INSULIN ASPART SUPPLEMENTAL SCALE SQ SCH ×6 (00:05→20:30)
[2017-08-14] MEDS: PROPOFOL 1000 MG/100 ML INJ 100 ML IV PRN ×3 (02:35→20:47)
[2017-08-14] MEDS: RESP: ALBUTEROL 2.5 MG/IPRATROPIUM 0.5 MG NEB (SCH) NEB ×4 (03:39→19:32)
[2017-08-14] MEDS: CHLORHEXIDINE GLUCONATE 2 % 1 PACK (2 CLOTHS) TOP SCH (04:00)
[2017-08-14] MEDS: ACETAMINOPHEN 325 MG TAB PO PRN (04:40)
[2017-08-14] MEDS: FREE WATER G-TUBE SCH ×3 (05:28→21:28)
[2017-08-14] MEDS: AZTREONAM INJ 2,000 MG in SODIUM CHLORIDE 0.9% INJ 100 ML IV SCH (05:55)
[2017-08-14] MEDS: GEMFIBROZIL 600 MG TAB PO SCH ×2 (05:55→16:00)
[2017-08-14] MEDS: metroNIDAZOLE 500 MG INJ 100 ML IV SCH (05:55)
[2017-08-14] MEDS: HEPARIN-D5W 25,000 U/250 ML 250 ML IV PRN (06:32)
[2017-08-14] MEDS: FUROSEMIDE 20 MG/2 ML VIAL IV PUSH SCH ×2 (07:28→20:39)
[2017-08-14] MEDS: DOCUSATE SODIUM 50 MG/SENNA 8.6 MG TAB PO SCH ×2 (07:28→20:40)
[2017-08-14] MEDS: SODIUM CHLORIDE 0.9% FLUSH 10 ML FLUSH IV FLUSH SCH ×2 (07:28→20:39)
[2017-08-14] MEDS: CHLORHEXIDINE 0.12% (ORAL KIT) 15 ML CUP MT SCH ×2 (07:29→20:38)
[2017-08-14 08:25] LABS: AUTOMATED NEUTROPHIL # 17.7 TH/MM3 (1.8-7.7); BASOPHIL # 0.1 TH/MM3 (0-0.2); BASOPHIL % 0.4 % (0.0-2.0); EOSINOPHIL % 0.2 % (0.0-4.0); LYMPH % 5.8 % (9.0-44.0); LYMPHOCYTE # 1.2 TH/MM3 (1.0-4.8); MEAN CELL VOLUME 90.6 FL (80.0-100.0); MEAN CORPUSCULAR HEMOGLOBIN 28.5 PG (27.0-34.0); MEAN CORPUSCULAR HGB CONC 31.5 % (32.0-36.0); MEAN PLATELET VOLUME 9.4 FL (7.0-11.0); MONO % 5.8 % (0.0-8.0); MONOCYTE # 1.2 TH/MM3 (0-0.9); NEUT % 87.8 % (16.0-70.0); PLATELET COUNT 471 TH/MM3 (150-450); RED BLOOD COUNT 2.41 MIL/MM3 (4.00-5.30); RED CELL DISTRIBUTION WIDTH 14.3 % (11.6-17.2); WHITE BLOOD COUNT 20.1 TH/MM3 (4.0-11.0)
[2017-08-14 08:40] LABS: HEMATOCRIT 21.8 % (35.0-46.0); HEMOGLOBIN 6.9 GM/DL (11.6-15.3)
[2017-08-14 09:13] LABS: CALCIUM 7.1 MG/DL (8.5-10.1); CREATININE 0.82 MG/DL (0.50-1.00); MAGNESIUM 1.3 MG/DL (1.5-2.5); PHOSPHORUS 3.1 MG/DL (2.5-4.9)
[2017-08-14 09:29] LABS: CALCIUM-PROTEIN CORRECTED 7.9 MG/DL (8.5-10.1); TOTAL PROTEIN 5.6 GM/DL (6.4-8.2)
[2017-08-14] MEDS: VANCOMYCIN 1,000 MG/NS 250 ML IV SCH ×2 (16:41)
[2017-08-14] MEDS ORDERED: PHARMACY ORDERED LAB ONE (16:45)
--- NOTE | 2017-08-14 17:22 | HHI.IDPN ---
Subjective Subjective Remarks remains on vent + secreions sputum + for MRSa fever up to 101.9 WBC up to [address] from yday showed nec pancreatiits. Showed extensive acute pancreatitis with very little normal pancreatic tissue conc erning for necrotic pancreatitis with extensive fluid collection replacing the entire pancreas developing into pseudocyst formation could be drained based on clinical grounds. Antibiotics azctam flagyl vancomycin Allergies: Coded Allergies: aspirin (Unverified Allergy, Severe, 10/16/16) PT HAS TINNITUS penicillin G (Unverified Allergy, Severe, 10/16/16) Objective . Vital Signs Date Time Temp Pulse Resp B/P (MAP) Pulse Ox O2 Delivery O2 Flow Rate FiO2 08/14/17 16:06 100 35 08/14/17 12:55 100 35 08/14/17 12:00 35 08/14/17 12:00 104 08/14/17 10:00 104 08/14/17 08:00 35 08/14/17 08:00 106 08/14/17 08:00 99.9 106 15 106/58 (74) 97 08/14/17 07:48 98 35 08/14/17 06:00 107 08/14/17 05:11 98 35 08/14/17 05:00 114 17 96/51 (66) 97 08/14/17 04:00 101.9 114 16 101/61 (74) 98 08/14/17 04:00 35 08/14/17 03:00 112 14 104/60 (75) 98 08/14/17 02:03 99 35 08/14/17 02:00 112 16 113/61 (78) 100 08/14/17 01:00 114 15 118/65 (82) 99 08/14/17 00:00 99.1 08/14/17 00:00 108 15 107/58 (74) 98 08/14/17 00:00 35 08/13/17 23:52 99 35 08/13/17 22:00 108 15 107/58 (74) 98 08/13/17 21:00 111 23 108/69 (82) 99 08/13/17 20:32 100 35 08/13/17 20:03 100.7 107 17 107/57 (74) 99 08/13/17 20:00 106 14 99 08/13/17 20:00 35 08/13/17 20:00 106 08/13/17 18:00 93 . Laboratory Tests Test 08/12/17 18:30 08/13/17 00:30 08/13/17 06:00 08/14/17 05:30 Hemoglobin 7.2 GM/DL 7.5 GM/DL 7.3 GM/DL 6.9 GM/DL Hematocrit 22.6 % 23.2 % 22.4 % 21.8 % White Blood Count 16.5 TH/MM3 20.1 TH/MM3 Red Blood Count 2.51 MIL/MM3 2.41 MIL/MM3 Mean Corpuscular Volume 89.3 FL 90.6 FL Mean Corpuscular Hemoglobin 29.0 PG 28.5 PG Mean Corpuscular Hemoglobin Concent 32.5 % 31.5 % Red Cell Distribution Width 14.1 % 14.3 % Platelet Count 464 TH/MM3 471 TH/MM3 Mean Platelet Volume 9.1 FL 9.4 FL Neutrophils (%) (Auto) 87.8 % Lymphocytes (%) (Auto) 5.8 % Monocytes (%) (Auto) 5.8 % Eosinophils (%) (Auto) 0.2 % Basophils (%) (Auto) 0.4 % Neutrophils # (Auto) 17.7 TH/MM3 Lymphocytes # (Auto) 1.2 TH/MM3 Monocytes # (Auto) 1.2 TH/MM3 Eosinophils # (Auto) 0.0 TH/MM3 Basophils # (Auto) 0.1 TH/MM3 CBC Comment DIFF FINAL Differential Comment Laboratory Tests Test 08/13/17 06:00 08/13/17 10:05 08/14/17 05:30 Creatinine 0.59 MG/DL 0.59 MG/DL 0.82 MG/DL Estimat Glomerular Filtration Rate 99 ML/MIN 99 ML/MIN 67 ML/MIN Blood Urea Nitrogen 24 MG/DL 30 MG/DL Random Glucose 138 MG/DL 235 MG/DL Calcium Level 7.6 MG/DL 7.1 MG/DL Sodium Level 147 MEQ/L 146 MEQ/L Potassium Level 3.3 MEQ/L 3.4 MEQ/L Chloride Level 115 MEQ/L 113 MEQ/L Carbon Dioxide Level 21.9 MEQ/L 21.0 MEQ/L Anion Gap 10 MEQ/L 12 MEQ/L Total Protein 5.6 GM/DL Phosphorus Level 3.1 MG/DL Magnesium Level 1.3 MG/DL Protein Corrected Calcium 7.9 MG/DL Microbiology Date/Time Source Procedure Growth Status 08/12/17 17:10 Stool Stool Stool Occult Blood (FREDDIE) - Final HEMOCCULT NEGATIVE Complete 08/12/17 13:00 Sputum Endotracheal Gram Stain - Final Complete 08/12/17 13:00 Sputum Endotracheal Sputum Culture - Final LIGHT GROWTH NORMAL RESPIRATORY ANGIE Complete Imaging Last Impressions Abdomen/Pelvis CT 08/13/17 Signed Impressions: CONCLUSION: 1. Extensive acute pancreatitis with very little normal pancreatic tissue conc erning for necrotic pancreatitis with extensive fluid collection replacing the entire pancreas developing into pseudocyst formation could be drained based on clinical grounds. 2. There is moderate ascites throughout the abdomen and pelvis is potentially hemorrhagic. 3. There is anasarca with edema particularly in the right chest wall and right arm. 4. Cholelithiasis. Chest X-Ray 08/12/17 Signed Impressions: CONCLUSION: The only interval change has been enlargement of the left effusion. The right e ffusion and bibasilar consolidation is stable. Head CT 08/06/17 Signed Impressions: CONCLUSION: 1. 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 No evidence of hemorrhage or acute m ass effect. Diffuse atrophy. Abdomen X-Ray 08/05/17 Signed Impressions: CONCLUSION: OG tube tip in proximal stomach. Mild basilar airspace disease with small left effusion. Lower Extremity Ultrasound 08/03/17 Signed Impressions: CONCLUSION: 1. Extensive DVT of the right lower extremity. 2. No venous thrombosis of the left lower extremity. Hepatobiliary Scan Nuclear Medicine 08/03/17 Signed Impressions: CONCLUSION: 1. No evidence of cystic duct or distal common bile duct obstruction. 2. Normal gallbladder ejection fraction. Cholangiopancreatography MRI 08/02/17 Signed Impressions: CONCLUSION: 1. Gallstones with at least one stone in the common duct 2. Pancreas poorly visualized because of motion. 3. Fluid present in the lesser sac consistent with pancreatitis. Head Magnetic Resonance Angiography 08/01/17 Signed Impressions: CONCLUSION: 1. Negative MRA Cow ([place] [facility] [place]) non contrast. Carotid Artery Ultrasound 08/01/17 Signed Impressions: CONCLUSION: 1. Right Internal Carotid Artery: Findings indicate <50% stenosis. 2. Left Internal Carotid Artery: Findings indicate <50% stenosis. Brain MRI 08/01/17 Signed Impressions: CONCLUSION: 1. Questionable tiny subacute lacunar infarcts posterior periventricular white matter. Moderate to severe chronic ischemic changes in the periventricular whi te matter. Remote left parietal lobe infarct. Physical Exam CONSTITUTIONAL/GENERAL: This is an adequately nourished patient, in no apparent distress.Sedated. Intubated TUBES/LINES/DRAINS: SKIN: No jaundice, rashes, or lesions. Ecchymoses on upper extremities. No wounds seen anteriorly. Skin temperature appropriate. Not diaphoretic. EYES: Pupils equal and round and reactive. Extraocular motions intact. No scleral icterus. No injection or drainage. Fundi not examined. ENT: Hearing not tested Nose without bleeding or purulent drainage. Throat without visible erythema, exudates, masses, or lesions. CARDIOVASCULAR: Regular rate and rhythm without murmurs, gallops, or rubs. No JVD. Peripheral pulses symmetric. RESPIRATORY/CHEST: Symmetric, unlabored respirations. Clear to auscultation. Breath diminished b/b bilaterally. No wheezes, rales, or rhonchi. GASTROINTESTINAL: Abdomen tight and less distended. No reaction to palpation No hepato-splenomegaly, or palpable masses. No guarding. Bowel sounds present. Incontinent of liquid stool GENITOURINARY: Without palpable bladder distension. Mary catheter in place with adequatre amount of yellow urine MUSCULOSKELETAL: Extremities without clubbing, cyanosis, improved tight BLE 4+ edema. No joint tenderness or effusion noted. No calf tenderness. No mottling or clubbing. NEUROLOGICAL: Sedated. PSYCHIATRIC: unable to assess Assessment & Plan Remarks Assessment and Plan Necrotising pancreatitis, gall stone induced Multi- organ failure Leukocytosis, leukemoid reaction - worse Severe ileus, now diarrhea - C.diff negative Critically ill unstable MRSA in sputum , infiltrates 2/2 fluid overload, less liekly PNA Fluid overload - severe hypoalbunemia She deteriorated over the last 24-48 , now with fever At this point her prognosis is worse since she is probaly septic from nec pancreatitis No family dc azactam , flagyl, vanco start Meropenem start micafungin Blood cultures dw Myranda Clinton MD Aug 14, 2017 17:22
[2017-08-14] MEDS ORDERED: ASP: Necrotizing pancreatitis PRN (17:30)
[2017-08-14] MEDS ORDERED: PHARMACY INFORMATION XX PRN (17:30)
[2017-08-14] MEDS: MAGNESIUM SULFATE INJ 2 GM in SODIUM CHLORIDE 0.9% INJ 96 ML IV PRN (18:39)
--- NOTE | 2017-08-14 18:56 | HHI.CCPN ---
Subjective Remarks/Hospital Course 76-year-old pleasantly demented female, [place] resident. The patient was noted earlier today to have a sudden onset of right gaze, as well as right- sided weakness. She was also found to be very hypotensive. Initial blood pressure 60/20, which responded to fluids and increased to 90/60. She presented to the hospital as a stroke-alert. The MRI of brain obtained in the emergency department showed only questionable tiny subacute lacunar infarcts posterior periventricular white matter. Moderate to severe chronic ischemic changes in the periventricular white matter. Remote left parietal lobe infarct. The CT of the abdomen and pelvis however shows the abnormal pancreas with enlargement and peripancreatic inflammation and edema characteristic of acute pancreatitis. Cholelithiasis without pancreatic duct dilatation. 6: Afebrile. Patient continues to have severe metabolic acidosis sodium bicarbonate infusion continued. Patient on nonrebreather continuing to be weaned down . Patient bolused with 500 cc normal saline 1 this a.m.. Oliguric 150 cc urine output in the last 12 hours. Unable to assess the amount of IV fluid patient was given in the ED and overnight. No hematemesis or melena this a.m. Patient continues on Protonix twice daily. Patient currently on nonrebreather mask currently being weaned down O2 saturation 100% though PaO2 is 155. Triglycerides are pending. MRI is pending. 2: Afebrile. Overnight patient became hemodynamically unstable, central line placed patient currently on Levophed 12 mcgs/min. The patient FIO2 requirements are increasing, intubation planned. Echo report last night showed RV mildly dilated with RV systolic function mildly decreased. Concern for possible PE, however patient not a candidate in the setting of GI Bleed. Hgb and Hct trend stable. Metabolic acidosis resolved with NaHCO3 infusion, now decreased. Patient 's SVV continued elevation and BUN 77. Pt bolused IVF's this am. UOP, creatinine slightly improved overnight. Electrolytes being replaced and closely monitored. Discussed with GI AKI Spence after her discussion with Dr. Sanchez this am plan is for MRCP today by GI or Invasive Radiology. --> report indicates stone in CBD without ductal dilatation 08/04 Off levophed, remainsn on neosynephrine 80 mcg/min. RLE u/s shows extensive RLE DVT. No BMs overnight. Discussed with gastroenterology, Dr. Sanchez, who agrees with starting heparin drip and monitor closely for bleeding. HIDA scan yesterday shows no evidence of obstruction. LFTS trending down so GI has canceled IR consult for percutaneous transhepatic biliary drain. Creatinine down trending and urine output improved. 08/05 Now weaned off neosynephrine, on levophed 9 mcg/min, RN states unable to wean. Started on heparin drip yesterday, no evidence of bleeding. LFTs continue downtrend. Okay to resume tube feeds per GI, but OGT was coiled in mouth and was repositioned, so will need to confirm position before initiating tube feeds. Palliative care assisting with finding family, no success so far. 08/06 Remains on levophed. CI 2.2,LVEF appears preserved on bedside ultrasound. Thirdspacing with anasarca. Not following commands today, clonus and rigidity noted so obtained stat CT brain which shows no acute changes. No fever. Holding neuroleptics/serotonergics. 08/07 Afebrile. WBC up to 33.9. Remains on levophed, requirement increased to 10 mcg/min. No BM since admission but had a large BM after bowel regimen given today, has been tolerating tube feeds. Not tolerating CPAP. Had clonus, rigidity and shaking of BLE with decreased responsiveness yesterday. CT brain negative. EEG mild encephalopathy. Suspected serotonin syndrome, now rigidity and clonus is resolved after stopping fentanyl, risperdal , zoloft. On low dose propofol. Still trying to find family. 08/08: Remains sedated, a little bit on mechanical ventilation. On Levophed 4 mics per minute. Worsening leukocytosis despite antibiotics and addition of antifungal therapy on 08/07. 08/09 Off pressors today. WBC remains high in 30s. MRSA in sputum. Does not tolerate CPAP. 08/10 Fails CPAP Anasarca, will try to diurese. 08/11 Fails CPAP 15/5 within minutes with RSBI >110 . UOP increased with efforts to diurese with albumin/lasix, though did not achieve negative 24 hour balance. BP drops intermittently. Multiple attempts to call her brother this weekend, left messages, not able to reach him. He previously indicated he did not want trach/PEG. Trach/PEG is necessary for ongoing aggressive care. Would be appropriate to transition to comfort measures at this point, which also seems congruent with patient's previously expressed wishes. 08/12 Patient remains sedated and intubated. Tolerating tube feeds. Afebrile. 08/13 No events overnight. Sedated and intubated. Afebrile. On Heparin drip. Subjective: 08/14: no changes. hgb dropped to 6.9. stopped heparin drip. still awaiting further goals of care, but for now, clearly no escalation of care and DNR status. Objective Vital Signs Date Time Temp Pulse Resp B/P (MAP) Pulse Ox O2 Delivery O2 Flow Rate FiO2 08/14/17 16:06 100 35 08/14/17 14:00 104 08/14/17 08:00 99.9 15 106/58 (74) Intake and Output 08/14/17 08/14/17 08/14/17 07:59 15:59 23:59 Intake Total 1452 ml Output Total 550 ml Balance 902 ml Result Diagram: 08/14/17 0530 08/14/17 0530 Other Results Microbiology Date/Time Source Procedure Growth Status 08/12/17 17:10 Stool Stool Stool Occult Blood (FREDDIE) - Final HEMOCCULT NEGATIVE Complete 08/12/17 13:00 Sputum Endotracheal Gram Stain - Final Complete 08/12/17 13:00 Sputum Endotracheal Sputum Culture - Final LIGHT GROWTH NORMAL RESPIRATORY ANGIE Complete Imaging Last Impressions Chest X-Ray 08/12/17 0000 Signed Impressions: CONCLUSION: The only interval change has been enlargement of the left effusion. The right e ffusion and bibasilar consolidation is stable. Head CT 08/06/17 Signed Impressions: CONCLUSION: 1. 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 No evidence of hemorrhage or acute m ass effect. Diffuse atrophy. Abdomen X-Ray 08/05/17 0000 Signed Impressions: CONCLUSION: OG tube tip in proximal stomach. Mild basilar airspace disease with small left effusion. Lower Extremity Ultrasound 08/03/17 Signed Impressions: CONCLUSION: 1. Extensive DVT of the right lower extremity. 2. No venous thrombosis of the left lower extremity. Hepatobiliary Scan Nuclear Medicine 08/03/17 0000 Signed Impressions: CONCLUSION: 1. No evidence of cystic duct or distal common bile duct obstruction. 2. Normal gallbladder ejection fraction. Cholangiopancreatography MRI 08/02/17 Signed Impressions: CONCLUSION: 1. Gallstones with at least one stone in the common duct 2. Pancreas poorly visualized because of motion. 3. Fluid present in the lesser sac consistent with pancreatitis. Head Magnetic Resonance Angiography 08/01/17 Signed Impressions: CONCLUSION: 1. Negative MRA Cow ([place] [facility] [place]) non contrast. Carotid Artery Ultrasound 08/01/17 Signed Impressions: CONCLUSION: 1. Right Internal Carotid Artery: Findings indicate <50% stenosis. 2. Left Internal Carotid Artery: Findings indicate <50% stenosis. Brain MRI 08/01/17 Signed Impressions: CONCLUSION: 1. Questionable tiny subacute lacunar infarcts posterior periventricular white matter. Moderate to severe chronic ischemic changes in the periventricular whi te matter. Remote left parietal lobe infarct. Abdomen/Pelvis CT 08/01/17 Signed Impressions: CONCLUSION: 1. The pancreas is abnormal with enlargement and peripancreatic inflammation a nd edema characteristic of acute pancreatitis. There is a small volume of free fluid in the abdomen and pelvis. 2. Cholelithiasis without pancreatic duct dilatation. 3. There is mild wall thickening of the inferior rectum with associated presac ral edema. 4. Small bilateral pleural effusions with associated compressive atelectasis. 5. There is a compression deformity of uncertain chronicity involving L3 and c ompression deformity with sclerosis involving T9. Objective Remarks GENERAL: This is an elderly, critically ill appearing female patient with anasarca , encephalopathic. SKIN: No rashes, ecchymoses or lesions. HEAD: Atraumatic. Normocephalic. No temporal or scalp tenderness. EYES: Resists eye opening, pupils 2 mm equal round and reactive. No scleral icterus. No injection or drainage. NECK: Trachea midline. No JVD CARDIOVASCULAR: Regular rate and rhythm with no m/r/g RESPIRATORY: Orotracheally intubated on mechanical ventilation. Coarse bilateral breath sounds, diminished at bases. GASTROINTESTINAL: Abdomen distended, mildly tympanitic, no appreciable tenderness. : Mary in place MUSCULOSKELETAL: Extremities without clubbing, cyanosis. Anasarca. NEUROLOGICAL: RASS -4. Moves extremities spontaneously but not following commands. Legs no longer rigid. No clonus. DTR 2+ patellar. Date of Insertion: Aug 02, 2017 Date of Insertion: Aug 03, 2017 A/P Assessment and Plan Plan by systems: Neurologic: Acute left lacunar stroke History of previous CVA Dementia Schizophrenia Depression On Diprivan infusion for sedation. Daily sedation vacation 08/02 MRI-moderate to severe ischemic changes. Tiny subacute lacunar infarcts. Remote left parietal lobe infarct 08/02 MRA brain-negative 08/02-CT brain-no acute abnormality Carotids-<50% stenosis Patient is followed by neurology-Dr. Michelle Was not a candidate for TPA on admission due to acute GI bleed Rigidity and clonus ?serotonin syndrome, improved after Holding Zoloft , risperidone and fentanyl. EEG - mild encephalopathy, no seizure Respiratory: Acute hypoxemic respiratory failure Intubated 08/03 On PRVC. daily CPAP trial, not tolerating. Per Dr. Cotto: Not tolerating CPAP, Would have to have trach if ongoing aggressive care desired but her brother has said he intends to honor her prior wishes and would not want trach. However, unable to reach him for several days regarding possible transition to comfort. - Still brother unable to be reached as of today 08/14 by palliative care Duo nebs every 6 hours scheduled every 2 hours as needed Ventilator bundle DVT RLE, on heparin drip Cardiovascular: Hypovolemic and septic shock secondary to acute pancreatitis- Resolved Monitor HR and BP keep MAP>65mmHg 08/02 echo-right ventricle mildly dilated. Right ventricular systolic function mildly decreased. EF 55-60% 08/03-troponin increased 0.03->0.27. Possibly secondary to acute kidney injury, infection. Conceivably could be related to PE but would not use TPA at this time anyway due to bleeding risk and she is not a candidate for CT pulmonary angiogram due to acute kidney injury. Cardiology has evaluated, Dr. Tang. He has not recommended any further ischemic workup and has signed off. Mild hypertriglyceridemia is not the etiology of pancreatitis. Is on gemfibrozil 600 mg p.o. twice daily Renal: Acute kidney injury- Resolved Hypernatremia Monitor real function, I/O's, electrolytes replacement per protocol. On Free water 250ml Q8 monitor sodium level. Continue Lasix 20mg IV Q12 Nephrology, Dr. Sheridan has now signed off. FEN/GI: Acute gallstone pancreatitis, resolved. Choledocholithiasis Dyslipidemia GI bleed, resolved Elevated liver enzymes Chronic moderate protein calorie malnutrition 08/02- 1700 S/P MRI-at least one stone in the common bile duct. 08/03: MRCP demonstrates gallstones with cysts CBD stone. No dilatation of CBD. Minimal gallbladder wall thickening with trace fluid 08/03 HIDA scanno evidence of cystic duct or distal common bile duct obstruction. Normal gallbladder ejection fraction. Lipase now normalized at 164 on 08/07. LFTs downtrending. Protonix twice daily Rectal wall thickening on the CT In ED patient was noted to have bright red blood per rectum. Was transfused 2 units packed red cells 08/01. Has not had any further bleeding. GI is not planning to scope at this time. Recommended proceed with anticoagulation for extensive DVT and possible PE and monitor closely for evidence of bleeding. Jevity 1.5 @ 50/hr per nutrition recs. Heme: Acute blood loss anemia 2/2 GI bleed Persistent leukocytosis Extensive right lower extremity DVT Monitor CBC Transfuse for hemoglobin < 7 Patient transfused 2 units packed red blood cells in the ED (08/01) Ultrasound bilateral lower extremity xtensive right lower extremity DVT including iliac vein and extending below the knee to the posterior tibial vein. hold heparin drip given drop in hgb. ID: Gallstone pancreatitis MRSA sputum 08/07 Continue abx per ID ( On Vancomycin, aztreonam, Flagyl , Micafungin) Monitor for signs of infections ( Fever, WBC) C. difficile is negative. Repeat CT abdomen and pelvis Follow up on sputum cx from 08/12 Endocrine: Hyperglycemia hemoglobin A1c 5.6 On Medium SSI for glycemic control and Levemir insulin 5u Q12 Prophylaxis: GI Prophylaxis Protonix BID DVT Prophylaxis Heparin drip as per above Lines: Right IJ central venous line 08/02 08/07 palliative care updated brother, Davi Sood and code status changed to DNR as he states he will honor patients prior wishes expressed during last hospitalization. I provided additional update. He indicates he does not want any additional invasive procedures and therefore does not want CVL or art line replaced, no trach/PEG, no ERCP, etc. Per Dr. Cotto : I contacted Davi 08/09 but there is no answer. Patient is critically ill and has been intubated for 9 days. She now has recurrent sepsis and now MRSA pneumonia and it appears inconceivable that she will be able to be extubated within a time frame that will allow avoidance of tracheostomy. She is not tolerating CPAP. Davi has previously indicated to me that she would not want to proceed with trach and PEG. Her overall prognosis appears poor and transition to comfort measures appears appropriate if that is in keeping with the decision of her healthcare proxy. Patient has previously indicated she desire DNR status during a prior hospitalization. I again contacted Davi 08/10, 08/11. No answer, left message to call hospital. OVERALL IMPRESSION: unlikely to make a meaningful recovery. palliative efforts most appropriate at this time. no escalation of care. awaiting decisions by healthcare surrogates. Meng Cuevas MD Aug 14, 2017 18:56
[2017-08-14] MEDS: MEROPENEM INJ 1,000 MG in SODIUM CHLORIDE 0.9% INJ 100 ML IV SCH (20:34)
[2017-08-14] MEDS: MICAFUNGIN INJ 100 MG in SODIUM CHLORIDE 0.9% INJ 100 ML IV SCH (20:39)
[2017-08-14] MEDS: ZOLPIDEM TARTRATE 5 MG TAB PO SCH (20:40)
--- NOTE | 2017-08-14 22:00 | RADRPT ---
EXAM DATE: 08/14/2017 9:47 PM EDT AGE/SEX: 76 years / Female INDICATIONS: Obstruction, abdominal pain. CLINICAL DATA: This is the patient's subsequent encounter. Patient reports that signs and symptoms h ave been present for 2 days and indicates a pain score of 5/10. MEDICAL/SURGICAL HISTORY: Cerebrovascular disease. Carcinoma, breast. Pancreatitis. None. COMPARISON: No prior exams available for comparison. FINDINGS: There is mild gaseous distention of a bowel loop in the right lower quadrant which appears to be sma ll bowel. There is also some gas present in portions of colon. There are no definite suspicious calci fications identified. Prominent degenerative changes in the spine and hips. CONCLUSION: Gaseous distention of a small bowel loop in the right lower quadrant and occasional gas in the colon. Further evaluation with CT abdomen and pelvis suggested if clinically indicated. Electronically signed by: Jose Love MD 08/14/2017 9:59 PM EDT
[2017-08-15] VITALS (25 sets, daily range): BP systolic 96–123; BP diastolic 53–59; PULSE 85–106; RESP 12–19; TEMP 98.9–99.7; O2SAT 96–100
[2017-08-15] MEDS: INSULIN ASPART SUPPLEMENTAL SCALE SQ SCH ×6 (00:30→20:30)
[2017-08-15] MEDS: PANTOPRAZOLE SODIUM 40 MG VIAL IV PUSH SCH ×2 (00:51→11:30)
[2017-08-15 01:13] LABS: HEMATOCRIT 20.7 % (35.0-46.0); HEMOGLOBIN 6.5 GM/DL (11.6-15.3)
[2017-08-15] MEDS: CHLORHEXIDINE GLUCONATE 2 % 1 PACK (2 CLOTHS) TOP SCH (03:34)
[2017-08-15] MEDS: MEROPENEM INJ 1,000 MG in SODIUM CHLORIDE 0.9% INJ 100 ML IV SCH ×3 (03:34→20:57)
[2017-08-15] MEDS: RESP: ALBUTEROL 2.5 MG/IPRATROPIUM 0.5 MG NEB (SCH) NEB ×3 (03:48→15:45)
[2017-08-15 05:07] LABS: MEAN CELL VOLUME 89.1 FL (80.0-100.0); MEAN CORPUSCULAR HEMOGLOBIN 27.9 PG (27.0-34.0); MEAN CORPUSCULAR HGB CONC 31.3 % (32.0-36.0); MEAN PLATELET VOLUME 9.5 FL (7.0-11.0); PLATELET COUNT 513 TH/MM3 (150-450); RED BLOOD COUNT 2.25 MIL/MM3 (4.00-5.30); RED CELL DISTRIBUTION WIDTH 13.9 % (11.6-17.2); WHITE BLOOD COUNT 26.5 TH/MM3 (4.0-11.0)
[2017-08-15 05:13] LABS: HEMOGLOBIN 6.3 GM/DL (11.6-15.3)
[2017-08-15 05:36] LABS: CREATININE 0.95 MG/DL (0.50-1.00)
[2017-08-15] MEDS: FREE WATER G-TUBE SCH ×3 (05:39→20:58)
[2017-08-15] MEDS: PROPOFOL 1000 MG/100 ML INJ 100 ML IV PRN ×2 (05:40→18:00)
[2017-08-15] MEDS: GEMFIBROZIL 600 MG TAB PO SCH ×2 (06:55→16:00)
[2017-08-15] MEDS: DOCUSATE SODIUM 50 MG/SENNA 8.6 MG TAB PO SCH ×2 (07:48→20:57)
[2017-08-15] MEDS: SODIUM CHLORIDE 0.9% FLUSH 10 ML FLUSH IV FLUSH SCH ×2 (07:49→20:57)
[2017-08-15] MEDS: CHLORHEXIDINE 0.12% (ORAL KIT) 15 ML CUP MT SCH ×2 (07:49→20:58)
[2017-08-15] MEDS: FUROSEMIDE 20 MG/2 ML VIAL IV PUSH SCH ×2 (07:49→20:57)
[2017-08-15] MEDS: POTASSIUM CHLOR 20 MEQ PREMIX 100 ML IV PRN ×2 (07:51→09:57)
[2017-08-15] MEDS: MAGNESIUM SULFATE INJ 2 GM in SODIUM CHLORIDE 0.9% INJ 96 ML IV PRN (12:09)
--- NOTE | 2017-08-15 16:28 | HHI.CCPN ---
Subjective Remarks/Hospital Course 76-year-old pleasantly demented female, detention resident. The patient was noted earlier today to have a sudden onset of right gaze, as well as right- sided weakness. She was also found to be very hypotensive. Initial blood pressure 60/20, which responded to fluids and increased to 90/60. She presented to the hospital as a stroke-alert. The MRI of brain obtained in the emergency department showed only questionable tiny subacute lacunar infarcts posterior periventricular white matter. Moderate to severe chronic ischemic changes in the periventricular white matter. Remote left parietal lobe infarct. The CT of the abdomen and pelvis however shows the abnormal pancreas with enlargement and peripancreatic inflammation and edema characteristic of acute pancreatitis. Cholelithiasis without pancreatic duct dilatation. 6: Afebrile. Patient continues to have severe metabolic acidosis sodium bicarbonate infusion continued. Patient on nonrebreather continuing to be weaned down . Patient bolused with 500 cc normal saline 1 this a.m.. Oliguric 150 cc urine output in the last 12 hours. Unable to assess the amount of IV fluid patient was given in the ED and overnight. No hematemesis or melena this a.m. Patient continues on Protonix twice daily. Patient currently on nonrebreather mask currently being weaned down O2 saturation 100% though PaO2 is 155. Triglycerides are pending. MRI is pending. 2: Afebrile. Overnight patient became hemodynamically unstable, central line placed patient currently on Levophed 12 mcgs/min. The patient FIO2 requirements are increasing, intubation planned. Echo report last night showed RV mildly dilated with RV systolic function mildly decreased. Concern for possible PE, however patient not a candidate in the setting of GI Bleed. Hgb and Hct trend stable. Metabolic acidosis resolved with NaHCO3 infusion, now decreased. Patient 's SVV continued elevation and BUN 77. Pt bolused IVF's this am. UOP, creatinine slightly improved overnight. Electrolytes being replaced and closely monitored. Discussed with GI AKI Spence after her discussion with Dr. Sanchez this am plan is for MRCP today by GI or Invasive Radiology. --> report indicates stone in CBD without ductal dilatation 08/04 Off levophed, remainsn on neosynephrine 80 mcg/min. RLE u/s shows extensive RLE DVT. No BMs overnight. Discussed with gastroenterology, Dr. Sanchez, who agrees with starting heparin drip and monitor closely for bleeding. HIDA scan yesterday shows no evidence of obstruction. LFTS trending down so GI has canceled IR consult for percutaneous transhepatic biliary drain. Creatinine down trending and urine output improved. 08/05 Now weaned off neosynephrine, on levophed 9 mcg/min, RN states unable to wean. Started on heparin drip yesterday, no evidence of bleeding. LFTs continue downtrend. Okay to resume tube feeds per GI, but OGT was coiled in mouth and was repositioned, so will need to confirm position before initiating tube feeds. Palliative care assisting with finding family, no success so far. 08/06 Remains on levophed. CI 2.2,LVEF appears preserved on bedside ultrasound. Thirdspacing with anasarca. Not following commands today, clonus and rigidity noted so obtained stat CT brain which shows no acute changes. No fever. Holding neuroleptics/serotonergics. 08/07 Afebrile. WBC up to 33.9. Remains on levophed, requirement increased to 10 mcg/min. No BM since admission but had a large BM after bowel regimen given today, has been tolerating tube feeds. Not tolerating CPAP. Had clonus, rigidity and shaking of BLE with decreased responsiveness yesterday. CT brain negative. EEG mild encephalopathy. Suspected serotonin syndrome, now rigidity and clonus is resolved after stopping fentanyl, risperdal , zoloft. On low dose propofol. Still trying to find family. 08/08: Remains sedated, a little bit on mechanical ventilation. On Levophed 4 mics per minute. Worsening leukocytosis despite antibiotics and addition of antifungal therapy on 08/07. 08/09 Off pressors today. WBC remains high in 30s. MRSA in sputum. Does not tolerate CPAP. 08/10 Fails CPAP Anasarca, will try to diurese. 08/11 Fails CPAP 15/5 within minutes with RSBI >110 . UOP increased with efforts to diurese with albumin/lasix, though did not achieve negative 24 hour balance. BP drops intermittently. Multiple attempts to call her brother this weekend, left messages, not able to reach him. He previously indicated he did not want trach/PEG. Trach/PEG is necessary for ongoing aggressive care. Would be appropriate to transition to comfort measures at this point, which also seems congruent with patient's previously expressed wishes. 08/12 Patient remains sedated and intubated. Tolerating tube feeds. Afebrile. 08/13 No events overnight. Sedated and intubated. Afebrile. On Heparin drip. 08/14: no changes. hgb dropped to 6.9. stopped heparin drip. still awaiting further goals of care, but for now, clearly no escalation of care and DNR status. Subjective: 08/15: no improvements. hgb continues to fall despite being off anticoagulation. overall poor prognosis and I do not think she will survive. Objective Vital Signs Date Time Temp Pulse Resp B/P (MAP) Pulse Ox O2 Delivery O2 Flow Rate FiO2 08/15/17 16:00 35 08/15/17 16:00 99.5 93 19 99/55 (70) 96 Intake and Output 08/15/17 08/15/17 08/16/17 08:00 16:00 00:00 Intake Total 100 ml Output Total 680 ml Balance -580 ml Result Diagram: 08/15/17 0315 08/15/17 0315 Other Results Microbiology Date/Time Source Procedure Growth Status 08/12/17 17:10 Stool Stool Stool Occult Blood (FREDDIE) - Final HEMOCCULT NEGATIVE Complete Imaging Last Impressions Chest X-Ray 08/12/17 0000 Signed Impressions: CONCLUSION: The only interval change has been enlargement of the left effusion. The right e ffusion and bibasilar consolidation is stable. Head CT 08/06/17 Signed Impressions: CONCLUSION: 1. 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 No evidence of hemorrhage or acute m ass effect. Diffuse atrophy. Abdomen X-Ray 08/05/17 Signed Impressions: CONCLUSION: OG tube tip in proximal stomach. Mild basilar airspace disease with small left effusion. Lower Extremity Ultrasound 08/03/17 Signed Impressions: CONCLUSION: 1. Extensive DVT of the right lower extremity. 2. No venous thrombosis of the left lower extremity. Hepatobiliary Scan Nuclear Medicine 08/03/17 Signed Impressions: CONCLUSION: 1. No evidence of cystic duct or distal common bile duct obstruction. 2. Normal gallbladder ejection fraction. Cholangiopancreatography MRI 08/02/17 Signed Impressions: CONCLUSION: 1. Gallstones with at least one stone in the common duct 2. Pancreas poorly visualized because of motion. 3. Fluid present in the lesser sac consistent with pancreatitis. Head Magnetic Resonance Angiography 08/01/17 Signed Impressions: CONCLUSION: 1. Negative MRA Cow ([place]) non contrast. Carotid Artery Ultrasound 08/01/17 Signed Impressions: CONCLUSION: 1. Right Internal Carotid Artery: Findings indicate <50% stenosis. 2. Left Internal Carotid Artery: Findings indicate <50% stenosis. Brain MRI 08/01/17 Signed Impressions: CONCLUSION: 1. Questionable tiny subacute lacunar infarcts posterior periventricular white matter. Moderate to severe chronic ischemic changes in the periventricular whi te matter. Remote left parietal lobe infarct. Abdomen/Pelvis CT 08/01/17 Signed Impressions: CONCLUSION: 1. The pancreas is abnormal with enlargement and peripancreatic inflammation a nd edema characteristic of acute pancreatitis. There is a small volume of free fluid in the abdomen and pelvis. 2. Cholelithiasis without pancreatic duct dilatation. 3. There is mild wall thickening of the inferior rectum with associated presac ral edema. 4. Small bilateral pleural effusions with associated compressive atelectasis. 5. There is a compression deformity of uncertain chronicity involving L3 and c ompression deformity with sclerosis involving T9. Objective Remarks GENERAL: This is an elderly, critically ill appearing female patient with anasarca , encephalopathic. SKIN: No rashes, ecchymoses or lesions. HEAD: Atraumatic. Normocephalic. No temporal or scalp tenderness. EYES: Resists eye opening, pupils 2 mm equal round and reactive. No scleral icterus. No injection or drainage. NECK: Trachea midline. No JVD CARDIOVASCULAR: Regular rate and rhythm with no m/r/g RESPIRATORY: Orotracheally intubated on mechanical ventilation. Coarse bilateral breath sounds, diminished at bases. GASTROINTESTINAL: Abdomen distended, mildly tympanitic, no appreciable tenderness. : Mary in place MUSCULOSKELETAL: Extremities without clubbing, cyanosis. Anasarca. NEUROLOGICAL: RASS -4. Moves extremities spontaneously but not following commands. Legs no longer rigid. No clonus. DTR 2+ patellar. Date of Insertion: Aug 02, 2017 Date of Insertion: Aug 03, 2017 A/P Assessment and Plan Plan by systems: Neurologic: Acute left lacunar stroke History of previous CVA Dementia Schizophrenia Depression On Diprivan infusion for sedation. Daily sedation vacation 08/02 MRI-moderate to severe ischemic changes. Tiny subacute lacunar infarcts. Remote left parietal lobe infarct 08/02 MRA brain-negative 08/02-CT brain-no acute abnormality Carotids-<50% stenosis Patient is followed by neurology-Dr. Michelle Was not a candidate for TPA on admission due to acute GI bleed Rigidity and clonus ?serotonin syndrome, improved after Holding Zoloft , risperidone and fentanyl. EEG - mild encephalopathy, no seizure Respiratory: Acute hypoxemic respiratory failure Intubated 08/03 On PRVC. daily CPAP trial, not tolerating. Per Dr. Cotto: Not tolerating CPAP, Would have to have trach if ongoing aggressive care desired but her brother has said he intends to honor her prior wishes and would not want trach. However, unable to reach him for several days regarding possible transition to comfort. - Still brother unable to be reached as of today 08/14 by palliative care Duo nebs every 6 hours scheduled every 2 hours as needed Ventilator bundle DVT RLE, on heparin drip Cardiovascular: Hypovolemic and septic shock secondary to acute pancreatitis- Resolved Monitor HR and BP keep MAP>65mmHg 08/02 echo-right ventricle mildly dilated. Right ventricular systolic function mildly decreased. EF 55-60% 08/03-troponin increased 0.03->0.27. Possibly secondary to acute kidney injury, infection. Conceivably could be related to PE but would not use TPA at this time anyway due to bleeding risk and she is not a candidate for CT pulmonary angiogram due to acute kidney injury. Cardiology has evaluated, Dr. Tang. He has not recommended any further ischemic workup and has signed off. Mild hypertriglyceridemia is not the etiology of pancreatitis. Is on gemfibrozil 600 mg p.o. twice daily Renal: Acute kidney injury- Resolved Hypernatremia Monitor real function, I/O's, electrolytes replacement per protocol. On Free water 250ml Q8 monitor sodium level. Continue Lasix 20mg IV Q12 Nephrology, Dr. Sheridan has now signed off. FEN/GI: Acute gallstone pancreatitis, resolved. Choledocholithiasis Dyslipidemia GI bleed, resolved Elevated liver enzymes Chronic moderate protein calorie malnutrition 08/02- 1700 S/P MRI-at least one stone in the common bile duct. 08/03: MRCP demonstrates gallstones with cysts CBD stone. No dilatation of CBD. Minimal gallbladder wall thickening with trace fluid 08/03 HIDA scanno evidence of cystic duct or distal common bile duct obstruction. Normal gallbladder ejection fraction. Lipase now normalized at 164 on 08/07. LFTs downtrending. Protonix twice daily Rectal wall thickening on the CT In ED patient was noted to have bright red blood per rectum. Was transfused 2 units packed red cells 08/01. Has not had any further bleeding. GI is not planning to scope at this time. Recommended proceed with anticoagulation for extensive DVT and possible PE and monitor closely for evidence of bleeding. Jevity 1.5 @ 50/hr per nutrition recs. Heme: Acute blood loss anemia 2/2 GI bleed Persistent leukocytosis Extensive right lower extremity DVT Monitor CBC no escalation of care. transfusions will not improve her overall survival rate. Patient transfused 2 units packed red blood cells in the ED (08/01) Ultrasound bilateral lower extremity xtensive right lower extremity DVT including iliac vein and extending below the knee to the posterior tibial vein. hold heparin drip given drop in hgb. ID: Gallstone pancreatitis MRSA sputum 08/07 Continue abx per ID ( On Vancomycin, aztreonam, Flagyl , Micafungin) Monitor for signs of infections ( Fever, WBC) C. difficile is negative. Repeat CT abdomen and pelvis Endocrine: Hyperglycemia hemoglobin A1c 5.6 On Medium SSI for glycemic control and Levemir insulin 5u Q12 Prophylaxis: GI Prophylaxis Protonix BID DVT Prophylaxis Heparin drip on hold due to anemia. Lines: Right IJ central venous line 08/02 08/07 palliative care updated brother, Davi Sood and code status changed to DNR as he states he will honor patients prior wishes expressed during last hospitalization. I provided additional update. He indicates he does not want any additional invasive procedures and therefore does not want CVL or art line replaced, no trach/PEG, no ERCP, etc. Per Dr. Cotto : I contacted Davi 08/09 but there is no answer. Patient is critically ill and has been intubated for 9 days. She now has recurrent sepsis and now MRSA pneumonia and it appears inconceivable that she will be able to be extubated within a time frame that will allow avoidance of tracheostomy. She is not tolerating CPAP. Davi has previously indicated to me that she would not want to proceed with trach and PEG. Her overall prognosis appears poor and transition to comfort measures appears appropriate if that is in keeping with the decision of her healthcare proxy. Patient has previously indicated she desire DNR status during a prior hospitalization. I again contacted Davi 08/10, 08/11. No answer, left message to call hospital. OVERALL IMPRESSION: unlikely to make a meaningful recovery. palliative efforts most appropriate at this time. no escalation of care. awaiting decisions by healthcare surrogates. Meng Cuevas MD Aug 15, 2017 16:28
--- NOTE | 2017-08-15 19:27 | HHI.HCPN ---
Reason for visit A. To assist with evaluation and management of symptoms including: edema, altered mental status, dyspnea. b. To assist medical decision maker(s) with: better understanding of current medical conditions; weighing benefits/burdens of medical treatment options; making medical treatment decisions. . Subjective/Interval History Patient seen in medical ICU, remains endotracheally intubated on mechanical ventilation. Currently on propofol drip at 15 mcg/kg/min after brief CPAP trial today. Patient is awake, not tracking. She does not follow any commands. Nurse indicates the she does not follow when off sedation. BP 99/55 today. Patient has gross anasarca and 3+ pitting edema in all extremities. She has had continued decline, worsening anemia (hemoglobin 6.3, hematocrit 20). WBC increased from 20 to 26.5 overnight. Blood cultures drawn 08/14/17 no growth in 1 day. Hemoccult negative stool 08/12/2017 Palliative care and hospital staff have attempted to contact patient's brother, Davi and nephew on multiple occasions however he has not returned any calls. Per conversation with brother Dvai on 08/09/17, he declined all aggressive or any invasive interventions to include not replacing a central line, adding an arterial line, tracheostomy or PEG placement. Since that time he has been able to be reached to further clarify treatment goals. After consultation with legal it was determined to proceed with [employer] consultation given no return call from family members and patient's worsening condition. Met with [employer] sales and merchandising representative, Tiffanie John. She had the opportunity to speak with Dr. Cuevas and palliative care team. She feels given patient previously stated wishes on prior admission and recent wishes of brother , Davi that it would be in keeping with the patient wishes to proceed with transition to comfort and withdrawal of life support. Bioethics committee meeting with will be arranged to determine if we can proceed per HCP determination. . Family/friend interactions Met with Tiffanie Pryor to provide medical update and answer medical questions. Also present Henri Perkins LCSW. After review of clinical course, discussion with palliative care and Dr. Cuevas and understanding prior conversation with patient and her brother, Tiffanie Lopez, HCP feels it is in the patient's best interest to honor NO CODE and transition to comfort measures with compassionate withdrawal of life support pending Bioethics committee, tentatively planned for 08/17/17 at noon. . Advance Directives Living Will: Never completed Health Care Surrogate: Never completed Durable Power of Master Glazier: Never completed Advance Directive Specifics Documented care wishes: No living will available. . Significant change in goals: NO CODE. Transition to comfort with withdrawal of life support pending Bioethics committee approval on 08/17/17. Objective Vital Signs Date Time Temp Pulse Resp B/P (MAP) Pulse Ox O2 Delivery O2 Flow Rate FiO2 08/15/17 18:01 96 08/15/17 18:00 100 08/15/17 16:00 35 08/15/17 16:00 99.5 93 19 99/55 (70) 96 08/15/17 16:00 93 08/15/17 15:45 100 35 08/15/17 14:00 85 08/15/17 12:00 98.9 94 16 105/55 (72) 100 08/15/17 12:00 94 08/15/17 12:00 35 08/15/17 11:23 97 35 08/15/17 10:00 97 08/15/17 09:00 93 13 105/56 (72) 98 08/15/17 09:00 93 08/15/17 08:31 35 08/15/17 08:00 35 08/15/17 08:00 96 08/15/17 08:00 99.1 96 17 105/57 (73) 96 08/15/17 07:41 96 35 08/15/17 06:00 93 08/15/17 04:00 97 08/15/17 04:00 99.6 97 13 97/53 (68) 98 08/15/17 04:00 35 08/15/17 03:48 97 35 08/15/17 03:30 100 14 96 08/15/17 03:00 98 13 106/59 (75) 98 08/15/17 02:30 94 12 98 08/15/17 02:00 99 08/15/17 02:00 101 14 100/54 (69) 98 08/15/17 01:30 101 13 99 08/15/17 01:00 103 16 96/54 (68) 99 08/15/17 00:30 104 16 98 08/15/17 00:00 106 08/15/17 00:00 99.7 106 14 110/58 (75) 97 08/15/17 00:00 35 08/14/17 23:30 99 13 97 08/14/17 23:29 98 35 08/14/17 23:00 104 13 85/59 (68) 97 08/14/17 22:30 104 14 98 08/14/17 22:00 104 08/14/17 22:00 104 14 101/57 (72) 97 08/14/17 21:30 103 15 99 08/14/17 21:00 103 13 103/52 (69) 98 08/14/17 20:30 101 14 96 08/14/17 20:00 104 08/14/17 20:00 101.0 104 14 100/54 (69) 98 08/14/17 20:00 35 08/14/17 19:32 100 35 08/14/17 19:30 107 14 98 Physical Exam CONSTITUTIONAL/GENERAL: This is an obese patient, intubated and sedated, in no apparent distress. TUBES/LINES/DRAINS: ETT, OGT, Mary, left PIV 2, right IJ central line. Bilateral soft wrist restraints. SCD x 1 SKIN: No jaundice, rashes, or lesions. Ecchymoses on upper extremities. Small scabbed areas seen on left forearm. Skin temperature appropriate. Not diaphoretic. HEAD: Atraumatic. Normocephalic. EYES: Pupils equal and round and reactive. No scleral icterus. No injection or drainage ENT: Nose without bleeding or purulent drainage. NECK: Trachea midline. Supple. No JVD. CARDIOVASCULAR: Regular rate and rhythm without murmurs, gallops, or rubs. Peripheral pulses symmetric. RESPIRATORY/CHEST: Symmetric, unlabored respirations. Coarse breath sounds bilaterally, diminished at bases. GASTROINTESTINAL: Abdomen obese, nontender. Limited abdominal exam due to body habitus. Active bowel sounds 4 quadrants. GENITOURINARY: Without palpable bladder distension. Mary catheter in place. Notable episodes of diarrhea today (C. difficile negative 08/08/2017) MUSCULOSKELETAL: Extremities without clubbing or cyanosis. Generalized edema. No mottling or clubbing. NEUROLOGICAL: Sedated on 5mcg/kg.min. Open eyes only slightly for a brief period of time. PSYCHIATRIC: Sedated, appears calm. . Diagnostic Tests Laboratory Laboratory Tests Test 08/13/17 00:30 08/13/17 06:00 08/13/17 10:05 08/14/17 05:30 Hemoglobin 7.5 GM/DL (11.6-15.3) 7.3 GM/DL (11.6-15.3) 6.9 GM/DL (11.6-15.3) Hematocrit 23.2 % (35.0-46.0) 22.4 % (35.0-46.0) 21.8 % (35.0-46.0) Activated Partial Thromboplast Time 69.3 SEC (24.3-30.1) 90.0 SEC (24.3-30.1) White Blood Count 16.5 TH/MM3 (4.0-11.0) 20.1 TH/MM3 (4.0-11.0) Red Blood Count 2.51 MIL/MM3 (4.00-5.30) 2.41 MIL/MM3 (4.00-5.30) Mean Corpuscular Volume 89.3 FL (80.0-100.0) 90.6 FL (80.0-100.0) Mean Corpuscular Hemoglobin 29.0 PG (27.0-34.0) 28.5 PG (27.0-34.0) Mean Corpuscular Hemoglobin Concent 32.5 % (32.0-36.0) 31.5 % (32.0-36.0) Red Cell Distribution Width 14.1 % (11.6-17.2) 14.3 % (11.6-17.2) Platelet Count 464 TH/MM3 (150-450) 471 TH/MM3 (150-450) Mean Platelet Volume 9.1 FL (7.0-11.0) 9.4 FL (7.0-11.0) Creatinine 0.59 MG/DL (0.50-1.00) 0.59 MG/DL (0.50-1.00) 0.82 MG/DL (0.50-1.00) Estimat Glomerular Filtration Rate 99 ML/MIN (>89) 99 ML/MIN (>89) 67 ML/MIN (>89) Blood Urea Nitrogen 24 MG/DL (7-18) 30 MG/DL (7-18) Random Glucose 138 MG/DL (74-106) 235 MG/DL (74-106) Calcium Level 7.6 MG/DL (8.5-10.1) 7.1 MG/DL (8.5-10.1) Sodium Level 147 MEQ/L (136-145) 146 MEQ/L (136-145) Potassium Level 3.3 MEQ/L (3.5-5.1) 3.4 MEQ/L (3.5-5.1) Chloride Level 115 MEQ/L (98-107) 113 MEQ/L (98-107) Carbon Dioxide Level 21.9 MEQ/L (21.0-32.0) 21.0 MEQ/L (21.0-32.0) Anion Gap 10 MEQ/L (5-15) 12 MEQ/L (5-15) Neutrophils (%) (Auto) 87.8 % (16.0-70.0) Lymphocytes (%) (Auto) 5.8 % (9.0-44.0) Monocytes (%) (Auto) 5.8 % (0.0-8.0) Eosinophils (%) (Auto) 0.2 % (0.0-4.0) Basophils (%) (Auto) 0.4 % (0.0-2.0) Neutrophils # (Auto) 17.7 TH/MM3 (1.8-7.7) Lymphocytes # (Auto) 1.2 TH/MM3 (1.0-4.8) Monocytes # (Auto) 1.2 TH/MM3 (0-0.9) Eosinophils # (Auto) 0.0 TH/MM3 (0-0.4) Basophils # (Auto) 0.1 TH/MM3 (0-0.2) CBC Comment DIFF FINAL Differential Comment Total Protein 5.6 GM/DL (6.4-8.2) Phosphorus Level 3.1 MG/DL (2.5-4.9) Magnesium Level 1.3 MG/DL (1.5-2.5) Protein Corrected Calcium 7.9 MG/DL (8.5-10.1) Test 08/15/17 00:50 08/15/17 03:15 Hemoglobin 6.5 GM/DL (11.6-15.3) 6.3 GM/DL (11.6-15.3) Hematocrit 20.7 % (35.0-46.0) 20.0 % (35.0-46.0) White Blood Count 26.5 TH/MM3 (4.0-11.0) Red Blood Count 2.25 MIL/MM3 (4.00-5.30) Mean Corpuscular Volume 89.1 FL (80.0-100.0) Mean Corpuscular Hemoglobin 27.9 PG (27.0-34.0) Mean Corpuscular Hemoglobin Concent 31.3 % (32.0-36.0) Red Cell Distribution Width 13.9 % (11.6-17.2) Platelet Count 513 TH/MM3 (150-450) Mean Platelet Volume 9.5 FL (7.0-11.0) Creatinine 0.95 MG/DL (0.50-1.00) Estimat Glomerular Filtration Rate 57 ML/MIN (>89) Result Diagram: 08/15/1731408/15/17314 Microbiology Microbiology Date/Time Source Procedure Growth Status 08/14/17 18:20 Blood Peripheral Aerobic Blood Culture - Preliminary NO GROWTH IN 1 DAY Resulted 08/14/17 18:20 Blood Peripheral Anaerobic Blood Culture - Preliminary NO GROWTH IN 1 DAY Resulted 08/14/17 18:14 Blood Peripheral Aerobic Blood Culture - Preliminary NO GROWTH IN 1 DAY Resulted 08/14/17 18:14 Blood Peripheral Anaerobic Blood Culture - Preliminary NO GROWTH IN 1 DAY Resulted Imaging Last Impressions Abdomen X-Ray 08/14/17 Signed Impressions: CONCLUSION: Gaseous distention of a small bowel loop in the right lower quadrant and occasi onal gas in the colon. Further evaluation with CT abdomen and pelvis suggested if clinically indicated. Abdomen/Pelvis CT 08/13/17 Signed Impressions: CONCLUSION: 1. Extensive acute pancreatitis with very little normal pancreatic tissue conc erning for necrotic pancreatitis with extensive fluid collection replacing the entire pancreas developing into pseudocyst formation could be drained based on clinical grounds. 2. There is moderate ascites throughout the abdomen and pelvis is potentially hemorrhagic. 3. There is anasarca with edema particularly in the right chest wall and right arm. 4. Cholelithiasis. Chest X-Ray 08/12/17 Signed Impressions: CONCLUSION: The only interval change has been enlargement of the left effusion. The right e ffusion and bibasilar consolidation is stable. Head CT 08/06/17 Signed Impressions: CONCLUSION: 1. 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 No evidence of hemorrhage or acute m ass effect. Diffuse atrophy. Lower Extremity Ultrasound 08/03/17 Signed Impressions: CONCLUSION: 1. Extensive DVT of the right lower extremity. 2. No venous thrombosis of the left lower extremity. Hepatobiliary Scan Nuclear Medicine 08/03/17 Signed Impressions: CONCLUSION: 1. No evidence of cystic duct or distal common bile duct obstruction. 2. Normal gallbladder ejection fraction. Cholangiopancreatography MRI 08/02/17 Signed Impressions: CONCLUSION: 1. Gallstones with at least one stone in the common duct 2. Pancreas poorly visualized because of motion. 3. Fluid present in the lesser sac consistent with pancreatitis. Head Magnetic Resonance Angiography 08/01/17 Signed Impressions: CONCLUSION: 1. Negative MRA Cow ([facility] [place] [facility] [place]) non contrast. Carotid Artery Ultrasound 08/01/17 Signed Impressions: CONCLUSION: 1. Right Internal Carotid Artery: Findings indicate <50% stenosis. 2. Left Internal Carotid Artery: Findings indicate <50% stenosis. Brain MRI 08/01/17 Signed Impressions: CONCLUSION: 1. Questionable tiny subacute lacunar infarcts posterior periventricular white matter. Moderate to severe chronic ischemic changes in the periventricular whi te matter. Remote left parietal lobe infarct. Procedures 08/02/2017: Right IJ central line placement 08/03/2017: Endotracheal intubation . Assessment and Plan Disease Oriented Problem List: (1) GI bleed (2) Metabolic acidosis (3) Altered mental status (4) Sepsis (5) Acute renal failure (6) Adjustment disorder with depressed mood (7) Hypertension Symptom Scale: (1) Weakness 0-10 Scale: Unable to quantify (Right flaccidity on admission, improving) (2) Altered mental status 0-10 Scale: Unable to quantify (Baseline dementia, intubated, sedated.) (3) Edema 0-10 Scale: Unable to quantify Pertinent Non-Medical Issues Psychosocial:Patient originally from [place]. Moved to [place] over 20 years ago. 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 Patient is single. She reports that she had a son but "was given away". Both parents are , one brother Felice at known age secondary to acute OR. One remaining brother by the name of Davi Sood who she has not seen in over 12 years. Spiritual: No voodoo affiliation. Legal: No advanced directive paperwork has been completed. Ethical issues impacting care: Resolved. Have made contact with the brother who is willing to serve as her healthcare proxy. . Important Contacts Brother: Davi Sood (verified) Possible nephew:Davi Sood Jr. (verified), Possible family member: Sharon Sood (voicemail left). . Prognosis Patient was admitted with severe dehydration, sepsis, pancreatitis, metabolic acidosis, acute kidney failure and GI bleed, then suffered ventilatory dependent respiratory failure. Patient has had no clinical improvement, worsening anemia, unable to be weaned from mechanical ventilation, ventilator dependent. Patient is terminal. . Code Status: No Code Plan * Legal decision maker: Patient is not capacitated to make her own healthcare decisions, will not regain capacity. No known written advanced directives. Patient is single, no children, parents , has 1 brother, Davi Sood. According to [place] statutes healthcare proxy decision making would fall to the patient's brother, he had previously stated he would wish to service proxy decision-maker though has not been readily available has not been returning calls. contact information. After consulting with legal it was determined to proceed with [facility] consultation as family was not return calls and patient's condition was declining. Tiffanie Lopez LCSW ([phone]) from [employer] is now serving as Health Care Proxy decision maker per [place] statutes. * NO CODE * Met with [employer] sales and merchandising representative, Tiffanie Lopez LCSW. She had the opportunity to speak with Dr. Cuevas and palliative care team. She feels given patient previously stated wishes on prior admission and recent wishes of brotherDavi that it would be in keeping with the patient wishes to maintain NO CODE, no further escalation of care and to proceed with transition to comfort and withdrawal of life support. Bioethics committee meeting with will be arranged to determine if we can proceed per HCP determination. * Discussed Dr. Cuevas and nursing staff. * Palliative care will continue to follow the patient during hospital course as condition evolves, to assist patient/decision-maker with understanding of their medical conditions, weighing benefits/burdens of treatment options, for clarification of goals of treatment. Additionally will assist with any symptoms of palliative concern. SYMPTOMS: * Weakness: Multifactorial, related to sepsis, dehydration, hypotension, acidosis, pancreatitis, general and intermediate frame tender debility. At last evaluation prior to intubation, strength was 3/5 consistent with her prior admission in November 2016. She is undergoing rehydration and antibiotic therapy. Physical therapy is following. She has been evaluated by Dr. Campoverde for rehab. She was wheelchair bound upon admission and is likely sustaining increasing weakness due to prolonged bedbound status, anemia and significant clinical decline. * Altered mental status: Patient is not capacitated to make her own decisions, will not regain capacity. Multifactorial related to sepsis, hypotension, dehydration, acidosis, baseline psycho affective disorder/schizophrenia. She is currently intubated and sedated and a thorough assessment cannot be made at this time. She is following some commands at this time but appears to be becoming septic again, limiting the ability to diurese her for medical extubation. Her brother previously declined any invasive measures to include trach/PEG. * Edema: She has gross anasarca with significant pitting edema in all extremities. Hands are extremely swollen likely secondary to wrist restraints and dependent positioning. Albumin: 5.6; most recent albumin 1.2. Her renal indices are improving slowly. * Dyspnea: Secondary to anemia, respiratory failure. Remains on mechanical ventilation, not tolerating CPAP trials. Family did not previously want to tracheostomy. Bioethics meeting possible 08/16/17 to determine possible compassionate withdrawal of life support. . Attestation To help prompt me to consider important information that might be impacting today's encounter and assessment, information from prior notes written by myself or my colleagues may have been "brought forward" into today's note. My signature on this note, however, is an attestation that I personally performed the exam, history, and/or decision-making noted today, and, unless otherwise indicated, the interactions with patient, family, and staff as well as the review of records all occurred today. I also attest that the listed assessment and stated plan reflect my best clinical judgment today based on the combination of historical information, prior notes, and today's exam/ interactions. When time spent is documented, it refers only to time spent today by the signer, or if indicated, combined time spent today by collaborating physician/nurse practitioner. Caro Quevedo Aug 15, 2017 19:27
[2017-08-15] MEDS: MICAFUNGIN INJ 100 MG in SODIUM CHLORIDE 0.9% INJ 100 ML IV SCH (20:57)
[2017-08-16] VITALS (25 sets, daily range): BP systolic 91–133; BP diastolic 55–62; PULSE 90–123; RESP 11–34; TEMP 97.6–99.2; O2SAT 67–100
[2017-08-16] MEDS: PANTOPRAZOLE SODIUM 40 MG VIAL IV PUSH SCH ×2 (00:13→12:22)
[2017-08-16] MEDS: INSULIN ASPART SUPPLEMENTAL SCALE SQ SCH ×4 (00:13→12:21)
[2017-08-16] MEDS: PROPOFOL 1000 MG/100 ML INJ 100 ML IV PRN ×2 (02:45→10:01)
[2017-08-16] MEDS: CHLORHEXIDINE GLUCONATE 2 % 1 PACK (2 CLOTHS) TOP SCH (03:57)
[2017-08-16] MEDS: MEROPENEM INJ 1,000 MG in SODIUM CHLORIDE 0.9% INJ 100 ML IV SCH ×2 (04:41→12:22)
[2017-08-16] MEDS: FREE WATER G-TUBE SCH ×2 (05:33→12:23)
[2017-08-16] MEDS: GEMFIBROZIL 600 MG TAB PO SCH (05:33)
--- NOTE | 2017-08-16 07:31 | HHI.CCPN ---
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 The patient was noted earlier today to have a sudden onset of right gaze, as well as right- sided weakness. She was also found to be very hypotensive. Initial blood pressure 60/20, which responded to fluids and increased to 90/60. She presented to the hospital as a stroke-alert. The MRI of brain obtained in the emergency department showed only questionable tiny subacute lacunar infarcts posterior periventricular white matter. Moderate to severe chronic ischemic changes in the periventricular white matter. Remote left parietal lobe infarct. The CT of the abdomen and pelvis however shows the abnormal pancreas with enlargement and peripancreatic inflammation and edema characteristic of acute pancreatitis. Cholelithiasis without pancreatic duct dilatation. 6: Afebrile. Patient continues to have severe metabolic acidosis sodium bicarbonate infusion continued. Patient on nonrebreather continuing to be weaned down . Patient bolused with 500 cc normal saline 1 this a.m.. Oliguric 150 cc urine output in the last 12 hours. Unable to assess the amount of IV fluid patient was given in the ED and overnight. No hematemesis or melena this a.m. Patient continues on Protonix twice daily. Patient currently on nonrebreather mask currently being weaned down O2 saturation 100% though PaO2 is 155. Triglycerides are pending. MRI is pending. 2: Afebrile. Overnight patient became hemodynamically unstable, central line placed patient currently on Levophed 12 mcgs/min. The patient FIO2 requirements are increasing, intubation planned. Echo report last night showed RV mildly dilated with RV systolic function mildly decreased. Concern for possible PE, however patient not a candidate in the setting of GI Bleed. Hgb and Hct trend stable. Metabolic acidosis resolved with NaHCO3 infusion, now decreased. Patient 's SVV continued elevation and BUN 77. Pt bolused IVF's this am. UOP, creatinine slightly improved overnight. Electrolytes being replaced and closely monitored. Discussed with GI AKI Spence after her discussion with Dr. Sanchez this am plan is for MRCP today by GI or Invasive Radiology. --> report indicates stone in CBD without ductal dilatation 08/04 Off levophed, remainsn on neosynephrine 80 mcg/min. RLE u/s shows extensive RLE DVT. No BMs overnight. Discussed with gastroenterology, Dr. Sanchez, who agrees with starting heparin drip and monitor closely for bleeding. HIDA scan yesterday shows no evidence of obstruction. LFTS trending down so GI has canceled IR consult for percutaneous transhepatic biliary drain. Creatinine down trending and urine output improved. 08/05 Now weaned off neosynephrine, on levophed 9 mcg/min, RN states unable to wean. Started on heparin drip yesterday, no evidence of bleeding. LFTs continue downtrend. Okay to resume tube feeds per GI, but OGT was coiled in mouth and was repositioned, so will need to confirm position before initiating tube feeds. Palliative care assisting with finding family, no success so far. 08/06 Remains on levophed. CI 2.2,LVEF appears preserved on bedside ultrasound. Thirdspacing with anasarca. Not following commands today, clonus and rigidity noted so obtained stat CT brain which shows no acute changes. No fever. Holding neuroleptics/serotonergics. 08/07 Afebrile. WBC up to 33.9. Remains on levophed, requirement increased to 10 mcg/min. No BM since admission but had a large BM after bowel regimen given today, has been tolerating tube feeds. Not tolerating CPAP. Had clonus, rigidity and shaking of BLE with decreased responsiveness yesterday. CT brain negative. EEG mild encephalopathy. Suspected serotonin syndrome, now rigidity and clonus is resolved after stopping fentanyl, risperdal , zoloft. On low dose propofol. Still trying to find family. 08/08: Remains sedated, a little bit on mechanical ventilation. On Levophed 4 mics per minute. Worsening leukocytosis despite antibiotics and addition of antifungal therapy on 08/07. 08/09 Off pressors today. WBC remains high in 30s. MRSA in sputum. Does not tolerate CPAP. 08/10 Fails CPAP Anasarca, will try to diurese. 08/11 Fails CPAP 15/5 within minutes with RSBI >110 . UOP increased with efforts to diurese with albumin/lasix, though did not achieve negative 24 hour balance. BP drops intermittently. Multiple attempts to call her brother this weekend, left messages, not able to reach him. He previously indicated he did not want trach/PEG. Trach/PEG is necessary for ongoing aggressive care. Would be appropriate to transition to comfort measures at this point, which also seems congruent with patient's previously expressed wishes. 08/12 Patient remains sedated and intubated. Tolerating tube feeds. Afebrile. 08/13 No events overnight. Sedated and intubated. Afebrile. On Heparin drip. 08/14: no changes. hgb dropped to 6.9. stopped heparin drip. still awaiting further goals of care, but for now, clearly no escalation of care and DNR status. Subjective: 08/15: no improvements. hgb continues to fall despite being off anticoagulation. overall poor prognosis and I do not think she will survive. 08/16 Patient remains sedated and intubated. Afebrile. Objective Vital Signs Date Time Temp Pulse Resp B/P (MAP) Pulse Ox O2 Delivery O2 Flow Rate FiO2 08/16/17 06:00 97 08/16/17 04:00 35 08/16/17 04:00 99.1 15 103/57 (72) 100 Intake and Output 08/16/17 08/16/17 08/17/17 08:00 16:00 00:00 Intake Total 830 ml Output Total 200 ml Balance 630 ml Result Diagram: 08/15/17 0315 08/15/17 0315 Imaging Last Impressions Abdomen X-Ray 08/14/17 0000 Signed Impressions: CONCLUSION: Gaseous distention of a small bowel loop in the right lower quadrant and occasi onal gas in the colon. Further evaluation with CT abdomen and pelvis suggested if clinically indicated. Abdomen/Pelvis CT 08/13/17 0000 Signed Impressions: CONCLUSION: 1. Extensive acute pancreatitis with very little normal pancreatic tissue conc erning for necrotic pancreatitis with extensive fluid collection replacing the entire pancreas developing into pseudocyst formation could be drained based on clinical grounds. 2. There is moderate ascites throughout the abdomen and pelvis is potentially hemorrhagic. 3. There is anasarca with edema particularly in the right chest wall and right arm. 4. Cholelithiasis. Chest X-Ray 08/12/17 0000 Signed Impressions: CONCLUSION: The only interval change has been enlargement of the left effusion. The right e ffusion and bibasilar consolidation is stable. Head CT 08/06/17 0000 Signed Impressions: CONCLUSION: 1. 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 No evidence of hemorrhage or acute m ass effect. Diffuse atrophy. Lower Extremity Ultrasound 6/2/18 0000 Signed Impressions: CONCLUSION: 1. Extensive DVT of the right lower extremity. 2. No venous thrombosis of the left lower extremity. Hepatobiliary Scan Nuclear Medicine 08/03/17 Signed Impressions: CONCLUSION: 1. No evidence of cystic duct or distal common bile duct obstruction. 2. Normal gallbladder ejection fraction. Cholangiopancreatography MRI 08/02/17 Signed Impressions: CONCLUSION: 1. Gallstones with at least one stone in the common duct 2. Pancreas poorly visualized because of motion. 3. Fluid present in the lesser sac consistent with pancreatitis. Head Magnetic Resonance Angiography 08/01/17 Signed Impressions: CONCLUSION: 1. Negative MRA [place] ([place]) non contrast. Carotid Artery Ultrasound 08/01/17 Signed Impressions: CONCLUSION: 1. Right Internal Carotid Artery: Findings indicate <50% stenosis. 2. Left Internal Carotid Artery: Findings indicate <50% stenosis. Brain MRI 08/01/17 Signed Impressions: CONCLUSION: 1. Questionable tiny subacute lacunar infarcts posterior periventricular white matter. Moderate to severe chronic ischemic changes in the periventricular whi te matter. Remote left parietal lobe infarct. Objective Remarks GENERAL: This is an elderly, critically ill appearing female patient with anasarca , encephalopathic. SKIN: No rashes, ecchymoses or lesions. HEAD: Atraumatic. Normocephalic. No temporal or scalp tenderness. EYES: Resists eye opening, pupils 2 mm equal round and reactive. No scleral icterus. No injection or drainage. NECK: Trachea midline. No JVD CARDIOVASCULAR: Regular rate and rhythm with no m/r/g RESPIRATORY: Orotracheally intubated on mechanical ventilation. Coarse bilateral breath sounds, diminished at bases. GASTROINTESTINAL: Abdomen distended, mildly tympanitic, no appreciable tenderness. : Mary in place MUSCULOSKELETAL: Extremities without clubbing, cyanosis. Anasarca. NEUROLOGICAL: RASS -4. Moves extremities spontaneously but not following commands. Legs no longer rigid. No clonus. DTR 2+ patellar. Date of Insertion: Aug 02, 2017 Date of Insertion: Aug 03, 2017 A/P Assessment and Plan Plan by systems: Neurologic: Acute left lacunar stroke History of previous CVA Dementia Schizophrenia Depression On Diprivan infusion for sedation. Daily sedation vacation 08/02 MRI-moderate to severe ischemic changes. Tiny subacute lacunar infarcts. Remote left parietal lobe infarct 08/02 MRA brain-negative 08/02-CT brain-no acute abnormality Carotids-<50% stenosis Patient is followed by neurology-Dr. Michelle Was not a candidate for TPA on admission due to acute GI bleed Rigidity and clonus ?serotonin syndrome, improved after Holding Zoloft , risperidone and fentanyl. EEG - mild encephalopathy, no seizure Respiratory: Acute hypoxemic respiratory failure Intubated 08/03 On PRVC. daily CPAP trial, not tolerating. Per Dr. Cotto: Not tolerating CPAP, Would have to have trach if ongoing aggressive care desired but her brother has said he intends to honor her prior wishes and would not want trach. However, unable to reach him for several days regarding possible transition to comfort. - Still brother unable to be reached Duo nebs every 6 hours scheduled every 2 hours as needed Ventilator bundle DVT RLE, heparin drip held on 08/14 for anemia requiring blood transfusion Cardiovascular: Hypovolemic and septic shock secondary to acute pancreatitis- Resolved Monitor HR and BP keep MAP>65mmHg 08/02 echo-right ventricle mildly dilated. Right ventricular systolic function mildly decreased. EF 55-60% 08/03-troponin increased 0.03->0.27. Possibly secondary to acute kidney injury, infection. Conceivably could be related to PE but would not use TPA at this time anyway due to bleeding risk and she is not a candidate for CT pulmonary angiogram due to acute kidney injury. Cardiology has evaluated, Dr. Tang. He has not recommended any further ischemic workup and has signed off. Mild hypertriglyceridemia is not the etiology of pancreatitis. Is on gemfibrozil 600 mg p.o. twice daily Renal: Acute kidney injury- Resolved Hypernatremia Monitor real function, I/O's, electrolytes replacement per protocol. On Free water 250ml Q8 monitor sodium level. Nephrology, Dr. Sheridan has now signed off. FEN/GI: Acute gallstone pancreatitis, Choledocholithiasis Dyslipidemia GI bleed, resolved Elevated liver enzymes Chronic moderate protein calorie malnutrition TF on hold for abdominal distention 08/13: CT abd/pelvis: Extensive acute pancreatitis with very little normal pancreatic tissue concerning for necrotic pancreatitis with extensive fluid collection replacing the entire pancreas developing into pseudocyst formation could be drained based on clinical grounds. There is moderate ascites throughout the abdomen and pelvis is potentially hemorrhagic. Cholelithiasis. 08/02- 1700 S/P MRI-at least one stone in the common bile duct. 08/03: MRCP demonstrates gallstones with cysts CBD stone. No dilatation of CBD. Minimal gallbladder wall thickening with trace fluid 08/03 HIDA scanno evidence of cystic duct or distal common bile duct obstruction. Normal gallbladder ejection fraction. Lipase now normalized at 164 on 08/07. LFTs downtrending. Protonix twice daily Rectal wall thickening on the CT In ED patient was noted to have bright red blood per rectum. Was transfused 2 units packed red cells 08/01. Has not had any further bleeding. GI is not planning to scope at this time. Recommended proceed with anticoagulation for extensive DVT and possible PE and monitor closely for evidence of bleeding. Heme: Acute blood loss anemia / GI bleed Persistent leukocytosis Extensive right lower extremity DVT Monitor CBC no escalation of care Patient transfused 2 units packed red blood cells in the ED (08/01) Ultrasound bilateral lower extremity xtensive right lower extremity DVT including iliac vein and extending below the knee to the posterior tibial vein. hold heparin drip given drop in hgb. ID: Gallstone pancreatitis MRSA sputum 08/07 Continue abx per ID ( Merrem, Micafungin) Monitor for signs of infections ( Fever, WBC) C. difficile is negative. Endocrine: Hyperglycemia hemoglobin A1c 5.6 On Medium SSI for glycemic control Prophylaxis: GI Prophylaxis Protonix BID DVT Prophylaxis Heparin drip on hold due to anemia. Lines: Right IJ central venous line 08/02 08/07 palliative care updated brother, Davi Sood and code status changed to DNR as he states he will honor patients prior wishes expressed during last hospitalization. I provided additional update. He indicates he does not want any additional invasive procedures and therefore does not want CVL or art line replaced, no trach/PEG, no ERCP, etc. Per Dr. Cotto : I contacted Davi 08/09 but there is no answer. Patient is critically ill and has been intubated for 9 days. She now has recurrent sepsis and now MRSA pneumonia and it appears inconceivable that she will be able to be extubated within a time frame that will allow avoidance of tracheostomy. She is not tolerating CPAP. Davi has previously indicated to me that she would not want to proceed with trach and PEG. Her overall prognosis appears poor and transition to comfort measures appears appropriate if that is in keeping with the decision of her healthcare proxy. Patient has previously indicated she desire DNR status during a prior hospitalization. I again contacted Davi 08/10, 08/11. No answer, left message to call hospital. Discussed with palliative care after bioethics today plan to proceed with withdrawal life support and transition to comfort care. Juan Luis Brown MD Aug 16, 2017 07:31
[2017-08-16] MEDS: CHLORHEXIDINE 0.12% (ORAL KIT) 15 ML CUP MT SCH (08:00)
[2017-08-16] MEDS: SODIUM CHLORIDE 0.9% FLUSH 10 ML FLUSH IV FLUSH SCH (09:00)
[2017-08-16] MEDS: DOCUSATE SODIUM 50 MG/SENNA 8.6 MG TAB PO SCH (10:00)
[2017-08-16] MEDS ORDERED: HYOSCYAMINE 0.5 MG/ML AMP IV PUSH ONE (15:00)
[2017-08-16] MEDS ORDERED: LORazepam 2 MG/ML VIAL IV PUSH ONE ×2 (15:00→15:30)
[2017-08-16] MEDS ORDERED: MORPHINE SULFATE 8 MG/ML INJ IV PUSH ONE (15:00)
--- NOTE | 2017-08-16 15:25 | HHI.PR ---
Addendum to Inpatient Note Additional Information Pt went on hospice care Myranda Vera MD Aug 16, 2017 15:25
--- NOTE | 2017-08-16 15:28 | HHI.HCPN ---
Reason for visit A. To assist with evaluation and management of symptoms including: edema, altered mental status, dyspnea. b. To assist medical decision maker(s) with: better understanding of current medical conditions; weighing benefits/burdens of medical treatment options; making medical treatment decisions. . Subjective/Interval History Patient seen in medical ICU, remains endotracheally intubated on mechanical ventilation. Tolerating CPAP for only brief periods of time. FiO2 35%. Currently on propofol drip at 35 mcg/kg/min. Patient has gross anasarca and 3+ pitting edema in all extremities. She has had continued decline, worsening anemia. Lab work from 08/15/2017: WBC increased from 20 to 26.5; hemoglobin 6.3; hematocrit 20; platelets 513. Blood cultures drawn 08/14/17 no growth in 1 day. Hemoccult negative stool 08/12/2017. CT abdomen/pelvis on 08/13/2017 showed extensive acute pancreatitis with very little normal pancreatic tissue concerning for necrotic pancreatitis with extensive fluid collection replacing the entire pancreas developing into pseudocyst formation which could be drained based on clinical grounds; there was moderate ascites throughout the abdomen and the pelvis was potentially hemorrhagic; there was anasarca with edema particularly in the right chest wall and right arm; cholelithiasis. [employer] medical field representative, Tiffanie Lopez, evaluated the patient yesterday 08/15/2017. She feels given patient previously stated wishes on prior admission and recent wishes of brotherDavi that it would be in keeping with the patient wishes to proceed with transition to comfort and withdrawal of life support. Subsequent bioethics meeting today 08/16/2017 at which time the patient' s medical and psychosocial history were presented. Exhibits B and C have been signed and placed on the patient's chart. Vent withdrawal orders have been placed in the computer. Discussed with Dr. Villafana and RNNicolasa. . Advance Directives Living Will: Never completed Health Care Surrogate: Never completed Durable Power of Financial Sales Associate: Never completed Advance Directive Specifics Documented care wishes: No living will available. . Significant change in goals: Plan to withdraw artificial life support later today. Exhibits B&C have been signed and placed on the patient's chart. Vent withdrawal orders have been placed in the computer. . Objective Vital Signs Date Time Temp Pulse Resp B/P (MAP) Pulse Ox O2 Delivery O2 Flow Rate FiO2 08/16/17 14:00 97 08/16/17 14:00 97 12 111/59 (76) 99 08/16/17 13:45 95 08/16/17 13:30 92 08/16/17 13:15 92 08/16/17 13:00 93 08/16/17 12:45 96 08/16/17 12:30 98 08/16/17 12:27 100 35 08/16/17 12:15 97 08/16/17 12:01 100 08/16/17 12:00 97 08/16/17 12:00 35 08/16/17 11:00 95 08/16/17 11:00 95 12 103/55 (71) 99 08/16/17 10:00 96 08/16/17 10:00 96 13 105/57 (73) 99 08/16/17 09:00 96 08/16/17 09:00 96 14 102/55 (71) 98 08/16/17 08:20 97 35 08/16/17 08:00 98.6 96 11 109/56 (73) 99 08/16/17 08:00 35 08/16/17 08:00 96 08/16/17 06:00 97 08/16/17 04:00 35 08/16/17 04:00 97 08/16/17 04:00 99.1 97 15 103/57 (72) 100 08/16/17 03:50 100 35 08/16/17 02:00 93 08/16/17 01:15 100 35 08/16/17 00:00 35 08/16/17 00:00 99.2 90 12 99/57 (71) 97 08/16/17 00:00 90 08/15/17 22:00 92 08/15/17 20:00 35 08/15/17 20:00 93 08/15/17 20:00 99.7 92 14 123/56 (78) 99 08/15/17 19:29 99 35 08/15/17 18:01 96 08/15/17 18:00 100 08/15/17 16:00 35 08/15/17 16:00 99.5 93 19 99/55 (70) 96 08/15/17 16:00 93 08/15/17 15:45 100 35 Intake & Output 08/16/17 08/16/17 07:00 19:00 Intake Total 1030 ml Output Total 200 ml Balance 830 ml IV Total 430 ml Other 600 ml Output Urine Total 200 ml # Bowel Movements 1 . Physical Exam CONSTITUTIONAL/GENERAL: This is an obese patient, intubated and sedated, in no apparent distress. TUBES/LINES/DRAINS: ETT, OGT, Mary, left PIV 2, right IJ central line. Bilateral soft wrist restraints. SCD x 1 SKIN: No jaundice, rashes, or lesions. Ecchymoses on upper extremities. .. Skin temperature appropriate. Not diaphoretic. HEAD: Atraumatic. Normocephalic. EYES: Pupils equal and round and reactive. No scleral icterus. No injection or drainage ENT: Nose without bleeding or purulent drainage. NECK: Trachea midline. Supple. No JVD. CARDIOVASCULAR: Regular rate and rhythm without murmurs, gallops, or rubs. Peripheral pulses symmetric. RESPIRATORY/CHEST: Symmetric, unlabored respirations. Coarse breath sounds bilaterally, diminished at bases. GASTROINTESTINAL: Abdomen obese, nontender. Limited abdominal exam due to body habitus. Active bowel sounds 4 quadrants. GENITOURINARY: Without palpable bladder distension. Mary catheter in place. MUSCULOSKELETAL: Extremities without clubbing or cyanosis. Generalized edema. No mottling or clubbing. NEUROLOGICAL: Sedated on 20mcg/kg.min. Open eyes only slightly for a brief period of time. PSYCHIATRIC: Sedated, appears calm. . Diagnostic Tests Laboratory . Laboratory Tests Test 08/14/17 05:30 08/15/17 00:50 08/15/17 03:15 White Blood Count 20.1 TH/MM3 (4.0-11.0) 26.5 TH/MM3 (4.0-11.0) Red Blood Count 2.41 MIL/MM3 (4.00-5.30) 2.25 MIL/MM3 (4.00-5.30) Hemoglobin 6.9 GM/DL (11.6-15.3) 6.5 GM/DL (11.6-15.3) 6.3 GM/DL (11.6-15.3) Hematocrit 21.8 % (35.0-46.0) 20.7 % (35.0-46.0) 20.0 % (35.0-46.0) Mean Corpuscular Volume 90.6 FL (80.0-100.0) 89.1 FL (80.0-100.0) Mean Corpuscular Hemoglobin 28.5 PG (27.0-34.0) 27.9 PG (27.0-34.0) Mean Corpuscular Hemoglobin Concent 31.5 % (32.0-36.0) 31.3 % (32.0-36.0) Red Cell Distribution Width 14.3 % (11.6-17.2) 13.9 % (11.6-17.2) Platelet Count 471 TH/MM3 (150-450) 513 TH/MM3 (150-450) Mean Platelet Volume 9.4 FL (7.0-11.0) 9.5 FL (7.0-11.0) Neutrophils (%) (Auto) 87.8 % (16.0-70.0) Lymphocytes (%) (Auto) 5.8 % (9.0-44.0) Monocytes (%) (Auto) 5.8 % (0.0-8.0) Eosinophils (%) (Auto) 0.2 % (0.0-4.0) Basophils (%) (Auto) 0.4 % (0.0-2.0) Neutrophils # (Auto) 17.7 TH/MM3 (1.8-7.7) Lymphocytes # (Auto) 1.2 TH/MM3 (1.0-4.8) Monocytes # (Auto) 1.2 TH/MM3 (0-0.9) Eosinophils # (Auto) 0.0 TH/MM3 (0-0.4) Basophils # (Auto) 0.1 TH/MM3 (0-0.2) CBC Comment DIFF FINAL Differential Comment Activated Partial Thromboplast Time 90.0 SEC (24.3-30.1) Blood Urea Nitrogen 30 MG/DL (7-18) Creatinine 0.82 MG/DL (0.50-1.00) 0.95 MG/DL (0.50-1.00) Random Glucose 235 MG/DL (74-106) Total Protein 5.6 GM/DL (6.4-8.2) Calcium Level 7.1 MG/DL (8.5-10.1) Phosphorus Level 3.1 MG/DL (2.5-4.9) Magnesium Level 1.3 MG/DL (1.5-2.5) Sodium Level 146 MEQ/L (136-145) Potassium Level 3.4 MEQ/L (3.5-5.1) Chloride Level 113 MEQ/L (98-107) Carbon Dioxide Level 21.0 MEQ/L (21.0-32.0) Anion Gap 12 MEQ/L (5-15) Estimat Glomerular Filtration Rate 67 ML/MIN (>89) 57 ML/MIN (>89) Protein Corrected Calcium 7.9 MG/DL (8.5-10.1) . Result Diagram: 08/15/175 08/15/175 Microbiology Microbiology Date/Time Source Procedure Growth Status 08/14/17 18:20 Blood Peripheral Aerobic Blood Culture - Preliminary NO GROWTH IN 2 DAYS Resulted 08/14/17 18:20 Blood Peripheral Anaerobic Blood Culture - Preliminary NO GROWTH IN 2 DAYS Resulted 08/14/17 18:14 Blood Peripheral Aerobic Blood Culture - Preliminary NO GROWTH IN 2 DAYS Resulted 08/14/17 18:14 Blood Peripheral Anaerobic Blood Culture - Preliminary NO GROWTH IN 2 DAYS Resulted . Imaging Last 72 hours Impressions Abdomen X-Ray 08/14/17 0000 Signed Impressions: CONCLUSION: Gaseous distention of a small bowel loop in the right lower quadrant and occasi onal gas in the colon. Further evaluation with CT abdomen and pelvis suggested if clinically indicated. . Procedures 08/02/2017: Right IJ central line placement 08/03/2017: Endotracheal intubation . Assessment and Plan Disease Oriented Problem List: (1) GI bleed (2) Metabolic acidosis (3) Altered mental status (4) Sepsis (5) Acute renal failure (6) Adjustment disorder with depressed mood (7) Hypertension Symptom Scale: (1) Weakness 0-10 Scale: Unable to quantify (Right flaccidity on admission, improving) (2) Altered mental status 0-10 Scale: Unable to quantify (Baseline dementia, intubated, sedated.) (3) Edema 0-10 Scale: Unable to quantify Pertinent Non-Medical Issues Psychosocial:Patient originally from [place]. Moved to [place] over 20 years ago. 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 Patient is single. She reports that she had a son but "was given away". Both parents are , one brother Felice at known age secondary to acute LA. One remaining brother by the name of Davi Sood who she has not seen in over 12 years. Spiritual: No restoration affiliation. Legal: No advanced directive paperwork has been completed. Ethical issues impacting care: Resolved. Have made contact with the brother who is willing to serve as her healthcare proxy. . Important Contacts Brother: Davi Sood (verified) Possible nephew:Davi Sood Jr. (verified), Possible family member: Sharon Sood (voicemail left). . Prognosis Patient was admitted with severe dehydration, sepsis, pancreatitis, metabolic acidosis, acute kidney failure and GI bleed, then suffered ventilatory dependent respiratory failure. Patient has had no clinical improvement, worsening anemia, unable to be weaned from mechanical ventilation, ventilator dependent. Patient is terminal. . Code Status: No Code Plan * NO CODE * After consulting with legal it was determined to proceed with [employer] consultation as family was not return calls and patient's condition was declining. Tiffanie Lopez LCSW ([phone]) from [employer] is now serving as Health Care Proxy decision maker per [place] statutes. * Discussed with Dr. Villafana and RN, Nicolasa. * [employer] medical field representative, Tiffanie Lopez, evaluated the patient yesterday 08/15/2017. She feels given patient previously stated wishes on prior admission and recent wishes of brotherDavi that it would be in keeping with the patient wishes to proceed with transition to comfort and withdrawal of life support. Subsequent bioethics meeting today 08/16/2017 at which time the patient' s medical and psychosocial history were presented. * Exhibits B and C have been signed and placed on the patient's chart. Vent withdrawal orders have been placed in the computer. * Palliative care will continue to follow the patient during hospital course as condition evolves, to assist patient/decision-maker with understanding of their medical conditions, weighing benefits/burdens of treatment options, for clarification of goals of treatment. Additionally will assist with any symptoms of palliative concern. SYMPTOMS: * Weakness: Multifactorial, related to sepsis, dehydration, hypotension, acidosis, pancreatitis, general and group home debility. At last evaluation prior to intubation, strength was 3/5 consistent with her prior admission in November 2016. She is undergoing rehydration and antibiotic therapy. Physical therapy is following. She has been evaluated by Dr. Campoverde for rehab. She was wheelchair bound upon admission and is likely sustaining increasing weakness due to prolonged bedbound status, anemia and significant clinical decline. * Altered mental status: Patient is not capacitated to make her own decisions, will not regain capacity. Multifactorial related to sepsis, hypotension, dehydration, acidosis, baseline psycho affective disorder/schizophrenia. She is currently intubated and sedated and a thorough assessment cannot be made at this time. She is following some commands at this time but appears to be becoming septic again, limiting the ability to diurese her for medical extubation. Her brother previously declined any invasive measures to include trach/PEG. * Edema: She has gross anasarca with significant pitting edema in all extremities. Hands are extremely swollen likely secondary to wrist restraints and dependent positioning. Albumin: 5.6; most recent albumin 1.2. Her renal indices are improving slowly. * Dyspnea: Secondary to anemia, respiratory failure. Remains on mechanical ventilation, not tolerating CPAP trials. Family did not previously want to tracheostomy. . Attestation To help prompt me to consider important information that might be impacting today's encounter and assessment, information from prior notes written by myself or my colleagues may have been "brought forward" into today's note. My signature on this note, however, is an attestation that I personally performed the exam, history, and/or decision-making noted today, and, unless otherwise indicated, the interactions with patient, family, and staff as well as the review of records all occurred today. I also attest that the listed assessment and stated plan reflect my best clinical judgment today based on the combination of historical information, prior notes, and today's exam/ interactions. When time spent is documented, it refers only to time spent today by the signer, or if indicated, combined time spent today by collaborating physician/nurse practitioner. . Anjali Berman Aug 16, 2017 15:27
[2017-08-16] MEDS ORDERED: BISACODYL 10 MG SUPP RECTAL PRN (15:30)
[2017-08-16] MEDS ORDERED: MORPHINE SULFATE 4 MG/ML INJ IV PUSH PRN (15:30)
[2017-08-16] MEDS ORDERED: MORPHINE SULFATE 4 MG/ML INJ IV PUSH ONE (15:30)
[2017-08-16] MEDS ORDERED: MORPHINE SULFATE 8 MG/ML INJ IV PUSH PRN (15:30)
[2017-08-16] MEDS ORDERED: ACETAMINOPHEN 650 MG SUPP RECTAL PRN (15:30)
[2017-08-16] MEDS ORDERED: HYOSCYAMINE 0.5 MG/ML AMP IV PUSH PRN (15:30)
[2017-08-16] MEDS ORDERED: FUROSEMIDE 20 MG/2 ML VIAL IV PUSH PRN (15:30)
[2017-08-16] MEDS ORDERED: LORazepam 2 MG/ML VIAL IV PUSH PRN ×3 (15:30)
[2017-08-16] MEDS ORDERED: MORPHINE SULFATE 4 MG/ML INJ IV PUSH SCH (16:00)
[2017-08-16] MEDS ORDERED: LORazepam 2 MG/ML VIAL IV PUSH SCH (16:00)
--- NOTE | 2017-08-16 17:03 | HHI.HCPN ---
Attempted to contact brother to inform him patient is dying. Unable to reach as number rings once and goes straight to voicemail. Maddie Álvarez ADVERTISING SALES MANAGER, [employer] Aug 16, 2017 17:03
== END 2017-08-16 17:22 | disposition expired | DRG 870 ==
LOC: NEPC 19:14 → NEDA 21:16 → HIMN 23:10
PROVIDERS: ADMIT Internal Medicine Critical Care Medicine; ATTEND Internal Medicine Critical Care Medicine
PROC: 30233N1 Transfusion of Nonautologous Red Blood Cells into Peripheral Vein, Percutaneous Approach (ICD-10-PCS; 2017-08-02)
PROC: 02HV33Z Insertion of Infusion Device into Superior Vena Cava, Percutaneous Approach (ICD-10-PCS; 2017-08-02)
PROC: 5A1955Z Respiratory Ventilation, Greater than 96 Consecutive Hours (ICD-10-PCS; principal; 2017-08-03)
PROC: 0BH18EZ Insertion of Endotracheal Airway into Trachea, Via Natural or Artificial Opening Endoscopic (ICD-10-PCS; 2017-08-03)
DX: A41.9 Sepsis, unspecified organism (principal); I63.8 Other cerebral infarction; R57.1 Hypovolemic shock; J96.01 Acute respiratory failure with hypoxia; N17.9 Acute kidney failure, unspecified; J15.212 Pneumonia due to Methicillin resistant Staphylococcus aureus; G93.40 Encephalopathy, unspecified; K85.11 Biliary acute pancreatitis with uninfected necrosis; R18.8 Other ascites; R65.21 Severe sepsis with septic shock; E87.2 Acidosis; K92.1 Melena; D62 Acute posthemorrhagic anemia; I82.421 Acute embolism and thrombosis of right iliac vein; I82.411 Acute embolism and thrombosis of right femoral vein; I82.441 Acute embolism and thrombosis of right tibial vein; E44.0 Moderate protein-calorie malnutrition; E87.0 Hyperosmolality and hypernatremia; K56.7 Ileus, unspecified; B19.10 Unspecified viral hepatitis B without hepatic coma; N18.3 Chronic kidney disease, stage 3 (moderate); F03.90 Unspecified dementia, unspecified severity, without behavioral disturbance, psychotic disturbance, mood disturbance, and anxiety; M19.90 Unspecified osteoarthritis, unspecified site; K21.9 Gastro-esophageal reflux disease without esophagitis; F41.9 Anxiety disorder, unspecified; R47.1 Dysarthria and anarthria; E78.5 Hyperlipidemia, unspecified; F20.9 Schizophrenia, unspecified; R00.0 Tachycardia, unspecified; E87.70 Fluid overload, unspecified; K80.70 Calculus of gallbladder and bile duct without cholecystitis without obstruction; I12.9 Hypertensive chronic kidney disease with stage 1 through stage 4 chronic kidney disease, or unspecified chronic kidney disease; R54 Age-related physical debility; Z51.5 Encounter for palliative care; Z66 Do not resuscitate; D72.823 Leukemoid reaction; E78.1 Pure hyperglyceridemia; E83.39 Other disorders of phosphorus metabolism; E87.6 Hypokalemia; F43.21 Adjustment disorder with depressed mood; R73.9 Hyperglycemia, unspecified; Z86.73 Personal history of transient ischemic attack (TIA), and cerebral infarction without residual deficits; Z85.3 Personal history of malignant neoplasm of breast; Z74.01 Bed confinement status; Z87.891 Personal history of nicotine dependence
CPT/HCPCS: 31500; 36430; 36556; 36600; 36620; 51702; 70450; 70544; 70551; 71045; 74018; 74176; 74181; 76377; 76937; 78227; 80048; 80053; 80061; 80076; 80202; 80307; 81001; 82150; 82272; 82533; 82550; 82552; 82565; 82570; 82805; 82948; 83036; 83605; 83690; 83735; 83880; 84100; 84132; 84155; 84300; 84484; 84540; 85007; 85014; 85018; 85025; 85027; 85379; 85384; 85610; 85730; 86403; 86850; 86900; 86901; 86920; 87040; 87070; 87086; 87186; 87205; 87493; 87641; 93005; 93306; 93880; 93970; 94002; 94003; 94640; 94664; 95819; 96361; 96365; 96368; A9537; C9113; J0330; J0610; J0692; J1170; J1644; J1815; J1940; J1980; J2060; J2185; J2248; J2270; J2370; J2805; J3010; J3370; J3475; J3480; J7030; J7040; J7050; J7060; J7070; P9016; P9047; Q9963